=== PATIENT | female | born 1935 | race Caucasian/White ===

== ENCOUNTER 2017-07-12 13:57 | Outpatient (CLI) | payer MEDICARE | END 2017-07-12 13:58 | disposition critical access hospital (66) | LOC: EMS 13:57 | PROVIDERS: ATTEND Surgery | DX: M54.9 Dorsalgia, unspecified (principal); R53.83 Other fatigue | CPT/HCPCS: A0425; A0427 ==

== ENCOUNTER 2017-07-12 14:18 | Emergency (ER) | payer MEDICARE ==
[2017-07-12] MEDS ORDERED: ASPIRIN CHEW 81 MG TABLET PO STA (15:03)
--- NOTE | 2017-07-12 15:04 | ED Physician Documentation ---
PD HPI CHEST PAIN - Stated complaint Stated Complaint: BACK PX - Chief complaint Chief Complaint: Back Pain - History obtained from History obtained from: Patient, EMS - History of Present Illness Timing - onset: Other (This is an 81-year-old woman with history of coronary disease, 3 vessel bypass in 2007. 2 weeks ago she had an episode of chest and back squeezing, she was seen at [facility] and ruled out, a nuclear stress test was done and was negative. This was reviewed using the [employer] System. Today she was at work at around 1120 and developed similar chest and back pressure associated with nausea and diaphoresis. It went away after an hour. She is in no pain now.) Review of Systems Ten Systems: 10 systems reviewed and negative Constitutional: denies: Fever, Chills Cardiac: reports: Chest pain / pressure. denies: Palpitations, Pedal edema, Calf pain Respiratory: reports: Dyspnea. 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: No - Family History Family history: reports: Non contributory PD ED PE NORMAL - Vitals Vital signs reviewed: Yes - General General: Alert and oriented X 3, No acute distress - HEENT HEENT: PERRL, EOMI - Neck Neck: Supple, no meningeal sign, No bony TTP - Cardiac Cardiac: RRR, No murmur - Respiratory Respiratory: No respiratory distress, Clear bilaterally - Abdomen Abdomen: Soft, Non tender - Extremities Extremities: No edema, No calf tenderness / cord - Neuro Neuro: Alert and oriented X 3, Normal speech - Psych Psych: Normal mood, Normal affect Results - Vitals Vitals: Vital Signs - 24 hr 07/12/17 07/12/17 14:17 16:18 Temperature 36.8 C Heart Rate 78 68 Respiratory 18 18 Rate Blood Pressure 134/62 H 155/55 H O2 Saturation 93 95 Oxygen O2 Source Room air - EKG (time done) 1523 Rate: Rate (enter#) (83) Rhythm: NSR May: Normal Intervals: RBBB Ischemia: T wave inversion (V1-V5). No: ST elevation c/w ischemia Compare to prior EKG: Other (I am able to read the impression of the EKG done at [facility] which is remarked as showing sinus rhythm, right bundle branch block, T-wave inversion in V3 through V6.) Computer interpretation: Agree with computer - Labs Labs: Laboratory Tests 07/12/17 07/12/17 07/12/17 15:27 15:27 15:27 WBC 9.6 RBC 5.13 Hgb 14.8 Hct 44.3 MCV 86.4 MCH 28.8 MCHC 33.4 RDW 13.8 Plt Count 215 MPV 8.7 Neut # 7.6 H Lymph # 1.0 L [place] # 0.6 Eos # 0.3 Baso # 0.1 Absolute Nucleated RBC 0.01 Nucleated RBCs 0.2 Sodium 136 Potassium 3.7 Chloride 102 Carbon Dioxide 25 Anion Gap 9.0 BUN 17 Creatinine 1.0 Estimated GFR (MDRD) 53 L Glucose 119 H Calcium 10.3 Total Bilirubin 1.4 H AST 25 ALT 18 Alkaline Phosphatase 58 Troponin I < 0.04 Total Protein 7.2 Albumin 4.4 Globulin 2.8 Albumin/Globulin Ratio 1.6 Lipase 32 07/12/17 17:10 WBC RBC Hgb Hct MCV MCH MCHC RDW Plt Count MPV Neut # Lymph # [place] # Eos # Baso # Absolute Nucleated RBC Nucleated RBCs Sodium Potassium Chloride Carbon Dioxide Anion Gap BUN Creatinine Estimated GFR (MDRD) Glucose Calcium Total Bilirubin AST ALT Alkaline Phosphatase Troponin I < 0.04 Total Protein Albumin Globulin Albumin/Globulin Ratio Lipase PD MEDICAL DECISION MAKING - ED course ED course: 81-year-old woman with history of coronary disease but negative stress test 2 weeks ago presents with chest pain that is recurrent but now gone. Atypical and nonexertional. EKG is unchanged from prior and 2 negative troponins were negative and undetectable in the emergency department. Departure - Departure Disposition: 01 Home, Self Care Clinical Impression: Chest pain Qualifiers: Chest pain type: unspecified Qualified Code(s): R07.9 - Chest pain, unspecified Condition: Good Record reviewed to determine appropriate education?: Yes Instructions: ED Chest Pain NonCardiac Comments: Follow-up with your doctor, next available appointment. Return in the interim if worse. Also recheck your blood pressure when you follow-up, it was elevated in the department which is not uncommon phenomenon.
[2017-07-12] MEDS ORDERED: ASPIRIN CHEW 81 MG TABLET ONE (15:22)
[2017-07-12 15:35] LABS: BASOPHILS # (AUTO) 0.1 10^3/uL (0.0-0.1); BASOPHILS % (AUTO) 1.3 %; EOSINOPHILS # (AUTO) 0.3 10^3/uL (0.0-0.7); EOSINOPHILS % (AUTO) 2.9 %; HCT - HEMATOCRIT 44.3 % (37.0-47.0); HGB - HEMOGLOBIN 14.8 g/dL (12.0-16.0); LYMPHOCYTES % (AUTO) 10.2 %; MEAN CORPUSCULAR HEMOGLOBIN 28.8 pg (27.0-31.0); MEAN CORPUSCULAR HGB CONC 33.4 g/dL (32.0-36.0); MEAN CORPUSCULAR VOLUME 86.4 fL (81.0-99.0); MEAN PLATELET VOLUME 8.7 fL (7.9-10.8); MONOCYTES # (AUTO) 0.6 10^3/uL (0.0-1.0); MONOCYTES % (AUTO) 6.2 %; NEUTROPHILS # (AUTO) 7.6 10^3/uL (1.5-6.6); NEUTROPHILS % (AUTO) 79.4 %; NUCLEATED RED BLOOD CELLS AUTO 0.2 /100WBC; RED BLOOD COUNT 5.13 10^6/uL (4.20-5.40); RED CELL DISTRIBUTION WIDTH 13.8 % (12.0-15.0); UNCORRECTED WHITE BLOOD COUNT 9.6 x10^3/uL; WHITE BLOOD COUNT 9.6 x10^3/uL (4.8-10.8)
--- NOTE | 2017-07-12 15:39 | XRAY Preliminary Report ---
Exam: XR Chest 1 View IMPRESSION: No acute cardiopulmonary abnormality. [facility] SITE ID: [id number]
--- NOTE | 2017-07-12 15:42 | XRAY Report ---
EXAM: CHEST RADIOGRAPHY EXAM DATE: 07/12/2017 03:27 PM. CLINICAL HISTORY: Chest pain. COMPARISON: 12/31/2006. TECHNIQUE: 1 view. FINDINGS: Lungs/Pleura: No focal airspace opacity. Lung volumes within normal limits. Negative for pneumothorax . Mediastinum: There is moderate aortic arch atherosclerotic calcification. Heart size is normal. Previ ous sternotomy noted. Other: None. IMPRESSION: No acute cardiopulmonary abnormality. [facility] Referring Provider Line: [phone] SITE ID: [id number]
[2017-07-12 15:46] LABS: ALBUMIN/GLOBULIN RATIO 1.6 (1.0-2.2); BILIRUBIN,TOTAL 1.4 mg/dL (0.2-1.0); CALCIUM 10.3 mg/dL (8.5-10.3); POTASSIUM 3.7 mmol/L (3.5-5.0); TOTAL PROTEIN 7.2 g/dL (6.7-8.2)
[2017-07-12 17:56] VITALS: BP 110/54
== END 2017-07-12 18:04 | disposition home or self-care (01) ==
LOC: ED 14:18
DX: R07.9 Chest pain, unspecified (principal); I45.10 Unspecified right bundle-branch block; I25.10 Atherosclerotic heart disease of native coronary artery without angina pectoris; Z95.1 Presence of aortocoronary bypass graft; Z79.82 Long term (current) use of aspirin
CPT/HCPCS: 36415; 71010; 80053; 83690; 84484; 85025; 93005; 99283; 99284; A9270

== ENCOUNTER 2017-09-11 11:53 | Outpatient (CLI) | payer MEDICARE | END 2017-09-11 11:54 | disposition critical access hospital (66) | LOC: EMS 11:53 | PROVIDERS: ATTEND Surgery | DX: R42 Dizziness and giddiness (principal) | CPT/HCPCS: A0425; A0429 ==

== ENCOUNTER 2017-09-11 12:12 | Inpatient (IN) | payer MEDICARE ==
--- NOTE | 2017-09-11 12:38 | ED Physician Documentation ---
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 denies: Fever, Chills Nose: reports: Sinus pressure / pain Cardiac: reports: Chest pain / pressure Respiratory: reports: Dyspnea, Cough GI: reports: Abdominal Pain, Diarrhea. denies: Nausea, Vomiting, Bloody / black stool : denies: Dysuria Neurologic: reports: Generalized weakness. 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 Cardiovascular: CABG HEENT: Tonsil/Adenoidectomy - Present Medications Home Medications: Ambulatory Orders Medication Instructions Recorded Confirmed Aspirin 162 mg PO DAILY 07/12/17 09/11/17 Levothyroxine Sodium [Synthroid] 50 mcg PO DAILY 07/12/17 09/11/17 Lisinopril 40 mg PO DAILY 07/12/17 09/11/17 Albuterol 2.5 mg INH BID PRN 09/11/17 09/11/17 Amlodipine Besylate [Amlodipine 10 mg PO DAILY 09/11/17 09/11/17 Besylate] [place]-3 Acid Ethyl Esters [Lovaza] 1 gm PO DAILY 09/11/17 09/11/17 Triamterene/Hydrochlorothiazid 1 tab PO DAILY 09/11/17 09/11/17 [Triamterene-Hctz 37.5-25 mg Tb] - Allergies Allergies/Adverse Reactions: Allergies Allergy/AdvReac Type Severity Reaction Status Date / Time unknown antibiotic Allergy Unknown Uncoded 07/12/17 14:22 - Social History Does the pt smoke?: No Smoking Status: Never smoker Does the pt drink ETOH?: No Does the pt have substance abuse?: No - Immunizations Immunizations are current?: No - POLST Patient has POLST: No PD ED PE NORMAL - Vitals Vital signs reviewed: Yes - General General: Alert and oriented X 3 - HEENT HEENT: PERRL - Neck Neck: Supple, no meningeal sign - Cardiac Cardiac: RRR - Respiratory Respiratory: No respiratory distress, Clear bilaterally - Abdomen Abdomen: Soft, Non tender - Derm Derm: Normal color - Extremities Extremities: No deformity, Normal ROM s pain, No edema, No calf tenderness / cord - Neuro Neuro: Alert and oriented X 3, toilet products molder 2-12 intact, No motor deficit, No sensory deficit, Normal speech Results - Vitals Vitals: Vital Signs - 24 hr 09/11/17 09/11/17 09/11/17 12:17 13:51 14:27 Temperature 36.7 C Heart Rate 78 82 61 Respiratory 21 21 15 Rate Blood Pressure 194/80 H 164/74 H O2 Saturation 97 97 97 09/11/17 15:22 Temperature 36.8 C Heart Rate 77 Respiratory 15 Rate Blood Pressure 168/77 H O2 Saturation 95 Oxygen O2 Source Room air - EKG (time done) 1218 Rhythm: NSR, Other (freq PVCs) [place]: Normal Intervals: Normal [place], RBBB Ischemia: Other (ST elev III with J pt notiching, not in II or AVF) - Labs Labs: Laboratory Tests 09/11/17 09/11/17 09/11/17 12:57 12:57 12:57 WBC 9.9 RBC 4.70 Hgb 13.5 Hct 40.5 MCV 86.1 MCH 28.8 MCHC 33.4 RDW 13.4 Plt Count 262 MPV 8.5 Neut # 7.3 H Lymph # 1.4 L [place] # 0.7 Eos # 0.4 Baso # 0.1 Absolute Nucleated RBC 0.00 Nucleated RBC % 0.0 Sodium 138 Potassium 3.5 Chloride 104 Carbon Dioxide 25 Anion Gap 9.0 BUN 21 H Creatinine 1.0 Estimated GFR (MDRD) 53 L Glucose 118 H Lactic Acid Calcium 9.6 Total Bilirubin 0.5 AST 20 ALT 16 Alkaline Phosphatase 47 Troponin I < 0.04 Total Protein 6.3 L Albumin 3.3 Globulin 3.0 Albumin/Globulin Ratio 1.1 Lipase 30 09/11/17 12:57 WBC RBC Hgb Hct MCV MCH MCHC RDW Plt Count MPV Neut # Lymph # [place] # Eos # Baso # Absolute Nucleated RBC Nucleated RBC % Sodium Potassium Chloride Carbon Dioxide Anion Gap BUN Creatinine Estimated GFR (MDRD) Glucose Lactic Acid 1.4 Calcium Total Bilirubin AST ALT Alkaline Phosphatase Troponin I Total Protein Albumin Globulin Albumin/Globulin Ratio Lipase - Rads (name of study) CXR Radiology: See rad report (interstitial prominence may rep bronchtiis or atypical pna) abd sono Radiology: See rad report (5 cm AAA no FF) PD MEDICAL DECISION MAKING - ED course ED course: elderly pt with poorly controlled HTN and known AAA that is not ruptured and recently txed pna to ER with near syncope and severe weakness associated with chest discomfort onset shortly 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
[2017-09-11 12:59] LABS: BASOPHILS # (AUTO) 0.1 10^3/uL (0.0-0.1); BASOPHILS % (AUTO) 0.5 %; EOSINOPHILS # (AUTO) 0.4 10^3/uL (0.0-0.7); HCT - HEMATOCRIT 40.5 % (37.0-47.0); HGB - HEMOGLOBIN 13.5 g/dL (12.0-16.0); LYMPHOCYTES # (AUTO) 1.4 10^3/uL (1.5-3.5); LYMPHOCYTES % (AUTO) 14.3 %; MEAN CORPUSCULAR HEMOGLOBIN 28.8 pg (27.0-31.0); MEAN CORPUSCULAR HGB CONC 33.4 g/dL (32.0-36.0); MEAN CORPUSCULAR VOLUME 86.1 fL (81.0-99.0); MEAN PLATELET VOLUME 8.5 fL (7.9-10.8); MONOCYTES # (AUTO) 0.7 10^3/uL (0.0-1.0); MONOCYTES % (AUTO) 6.8 %; NEUTROPHILS # (AUTO) 7.3 10^3/uL (1.5-6.6); NEUTROPHILS % (AUTO) 74.4 %; RED CELL DISTRIBUTION WIDTH 13.4 % (12.0-15.0); UNCORRECTED WHITE BLOOD COUNT 9.9 x10^3/uL; WHITE BLOOD COUNT 9.9 x10^3/uL (4.8-10.8)
[2017-09-11 13:12] LABS: ALBUMIN/GLOBULIN RATIO 1.1 (1.0-2.2); BILIRUBIN,TOTAL 0.5 mg/dL (0.2-1.0); CALCIUM 9.6 mg/dL (8.5-10.3); POTASSIUM 3.5 mmol/L (3.5-5.0); TOTAL PROTEIN 6.3 g/dL (6.7-8.2)
--- NOTE | 2017-09-11 14:09 | XRAY Preliminary Report ---
Exam: XR CHEST 2 VIEW PA/LAT IMPRESSION: Increased interstitial prominence may represent bronchitis or an interstitial pneumonitis , most likely viral or mycoplasmal. Cardiovascular fullness may also contribute to this appearance. [facility] SITE ID: [id number]
--- NOTE | 2017-09-11 14:11 | XRAY Report ---
EXAM: CHEST RADIOGRAPHY EXAM DATE: 09/11/2017 01:46 PM. CLINICAL HISTORY: Weak soa cough recent tx for pna. COMPARISON: 07/12/2017. TECHNIQUE: 2 views. FINDINGS: Lungs/Pleura: Diffusely increased interstitial prominence, especially in the bases. No consolidation, effusion, or pneumothorax.. Mediastinum: Mild to moderate cardiomegaly, increased slightly. Mild vascular fullness. Other: Status post median sternotomy. IMPRESSION: Increased interstitial prominence may represent bronchitis or an interstitial pneumonitis , most likely viral or mycoplasmal. Cardiovascular fullness may also contribute to this appearance. [facility] Referring Provider Line: [phone] SITE ID: [id number]
--- NOTE | 2017-09-11 18:54 | Ultrasound Report ---
LIMITED RETROPERITONEAL ULTRASOUND: 09/11/2017 CLINICAL INDICATION: Known aneurysm, weakness. TECHNIQUE: Real-time scanning was performed with retail customer service representative static images obtained. The abdominal aorta measures 2.4 cm proximally, and 2.2 cm in the mid portion. There is a distal abd ominal aortic aneurysm present, measuring 5.0 x 4.5 cm. The iliacs are normal in caliber. No free f luid is present. IMPRESSION: A 5.0 CM DISTAL ABDOMINAL AORTIC ANEURYSM, WITHOUT EVIDENCE OF LEAK. JOB #: [id number] EXT JOB #:[id number]
[2017-09-11] MEDS ORDERED: SODIUM CHLORIDE FLUSH 0.9% 10 ML SYRINGE IVP PRN (22:02)
[2017-09-11] MEDS ORDERED: ZOLPIDEM 5 MG TABLET PO PRN (22:02)
[2017-09-11] MEDS ORDERED: PROMETHAZINE 25 MG/1 ML VIAL IM PRN (22:02)
[2017-09-11] MEDS ORDERED: ACETAMINOPHEN 325 MG TABLET PO PRN (22:02)
[2017-09-11] MEDS ORDERED: PROCHLORPERAZINE 10 MG/2 ML VIAL IVP PRN (22:02)
[2017-09-11] MEDS ORDERED: NITROGLYCERIN SL 0.4 MG TABLET SL PRN (22:02)
[2017-09-11] MEDS ORDERED: oxyCODONE 5 MG TABLET PO PRN (22:02)
[2017-09-11] MEDS ORDERED: ONDANSETRON 4 MG/2 ML VIAL IVP PRN (22:02)
[2017-09-12] MEDS: AZITHROMYCIN INJ 500 MG in SODIUM CHLORIDE 0.9% 250 ML IV SCH ×2 (00:07→22:43)
[2017-09-12] MEDS: SODIUM CHLORIDE FLUSH 0.9% 10 ML SYRINGE IVP SCH ×3 (00:07→20:43)
[2017-09-12 02:30] LABS: BILIRUBIN,URINE NEGATIVE (NEGATIVE)
[2017-09-12 02:40] LABS: UA CHARGE (STRIP ONLY) YES; UR CULTURE IF IND NOT INDICATED
[2017-09-12 03:34] LABS: ALBUMIN/GLOBULIN RATIO 1.1 (1.0-2.2); BILIRUBIN,TOTAL 0.6 mg/dL (0.2-1.0); BUN - BLOOD UREA NITROGEN 21 mg/dL (6-20); CALCIUM 9.4 mg/dL (8.5-10.3); CARBON DIOXIDE - CO2 24 mmol/L (21-32); CHLORIDE 103 mmol/L (101-111); CHOL/HDL RATIO 4.5 (<4.4); CHOLESTEROL 152 mg/dL; GFR - MDRD 53 (>89); GLUCOSE 107 mg/dL (70-100); HDL CHOLESTEROL 34 mg/dL; LDL/HDL RATIO 1.9 (<4.4); POTASSIUM 3.9 mmol/L (3.5-5.0); SODIUM 138 mmol/L (135-145); TOTAL PROTEIN 5.8 g/dL (6.7-8.2); TRIGLYCERIDES 260 mg/dL; VLDL CHOLESTEROL 52 mg/dL
[2017-09-12] MEDS: LISINOPRIL 20 MG TABLET PO SCH (09:22)
[2017-09-12] MEDS: amLODIPine 5 MG TABLET PO SCH (09:22)
[2017-09-12] MEDS: LEVOTHYROXINE 25 MCG TABLET PO SCH (09:22)
[2017-09-12] MEDS: TRIAMT/HCTZ 37.5 MG/25 MG CAPSULE PO SCH (09:23)
[2017-09-12] MEDS: ASPIRIN EC 81 MG TABLET PO SCH (09:23)
[2017-09-12] MEDS: FAMOTIDINE 20 MG TABLET PO SCH ×2 (09:23→20:41)
[2017-09-12] MEDS: ENOXAPARIN 40 MG/0.4 ML SYRINGE SUBQ SCH (09:23)
[2017-09-12] MEDS: POLYETHYLENE GLYCOL 3350 17 GM PACKET PO SCH (09:24)
[2017-09-12] MEDS: IPRATROPIUM/ALBUTEROL 3 ML NEB INH PRN ×2 (10:15→14:30)
[2017-09-12] MEDS ORDERED: NITROGLYCERIN 0.4 MG/HR PATCH TOP SCH (11:00)
[2017-09-12] MEDS ORDERED: guaiFENesin 600 MG TABLET PO SCH (11:00)
[2017-09-12] MEDS: guaiFENesin/DEXTROMETHORPHAN 10 ML UDC PO SCH ×2 (13:20→17:36)
--- NOTE | 2017-09-12 18:14 | PROVIDER PROGRESS NOTE ---
Assessment/Plan - Problem List (1) Atypical chest pain Assessment/Plan: Nitropatch was ordered, pt wore it for 5 hours and had no difference in chest pressure. The only thing that improved her chest pressure was the inhaler. I suspect this is pulmonary pain, even thogh it is not pleuritic Will admit Pt to full inpatient status for pain control. Pt agreeable. (2) Atypical pneumonia Assessment/Plan: Pt on iv antibiotic using Zithromax to treat probable bilateral Mycoplasma pneumonia. Since Pt now coughing, will obtain sputum sample for c&s. (3) COPD exacerbation Assessment/Plan: Improved symptoms but only minimally with Duonebs. Will continue this. Will also begin a Medrol dose salma. Pt says she needs steroids along with antibiotics when she has pulmonary infections. - Current Meds Current Meds: Current Medications Generic Name Dose Route Start Last Admin Trade Name Freq PRN Reason Stop Dose Admin Albuterol/Ipratropium 3 ml 09/11/17 22:02 09/12/17 14:30 Duoneb INH 3 ml Q4HR PRN Administration Wheezing Amlodipine Besylate 10 mg 09/12/17 09:00 09/12/17 09:22 Norvasc PO 10 mg DAILY ARNULFO Administration Aspirin 81 mg 09/12/17 09:00 09/12/17 09:23 Ecotrin PO 81 mg DAILY ARNULFO Administration Enoxaparin Sodium 40 mg 09/12/17 09:00 09/12/17 09:23 Lovenox SUBQ 40 mg DAILY ARNULFO Administration Famotidine 20 mg 09/12/17 09:00 09/12/17 09:23 Pepcid PO 20 mg BID ARNULFO Administration Guaifenesin 10 ml 09/12/17 12:00 09/12/17 17:36 Robitussin Dm PO 10 ml Q6HR ARNULFO Administration Azithromycin 500 mg/ Sodium 250 mls @ 250 mls/hr 09/11/17 23:00 09/12/17 01: 25 Chloride IV Infused Q24H ARNULFO Infusion Levothyroxine Sodium 50 mcg 09/12/17 09:00 09/12/17 09:22 Synthroid PO 50 mcg DAILY ARNULFO Administration Lisinopril 40 mg 09/12/17 09:00 09/12/17 09:22 Zestril PO 40 mg DAILY ARNULFO Administration Oxycodone HCl 5 mg 09/11/17 22:02 09/12/17 16:10 Roxicodone PO 5 mg Q4HR PRN Administration Pain 5 to 7 Polyethylene Glycol 17 gm 09/12/17 09:00 09/12/17 09:24 Miralax PO Not Given DAILY ARNULFO Sodium Chloride 10 ml 09/12/17 06:00 09/12/17 13:20 Normal Saline Flush 0.9% IVP 10 ml Q8HR ARNULFO Administration Triamterene/HCTZ 1 cap 09/12/17 09:00 09/12/17 09:23 Dyazide PO 1 cap DAILY ARNULFO Administration - Lab Result Fish Bone Diagrams: 09/11/17 12:57 09/12/17 02:58 - Additional Planning My Orders: My Active Orders 09/12/17 CUL, RESPIRATORY [RM] Urgent 09/12/17 12:00 guaiFENesin/DEXTROMETHORPHAN [Robitussin Dm] 10 ml PO Q6HR 09/12/17 Dinner Regular Diet [DIET] Subjective - Subjective Patient Reports: Other (Still has chest pressure, nearly constant. Has a new wet cough) Nursing Reports: Other (RT said that Pt only had relief of chest pressure after inhaler for a while, then it returned) Objective Vital Signs: Vital Signs - 24 hr 09/11/17 09/11/17 09/12/17 20:57 23:49 02:15 Temperature 36.4 C L 36.7 C Heart Rate Heart Rate [ 78 71 Brachial] Respiratory 18 18 18 Rate Blood Pressure 161/49 H 165/56 H [Right Brachial artery] O2 Saturation 94 95 09/12/17 09/12/17 09/12/17 06:00 09:20 10:15 Temperature 36.3 C L 36.2 C L Heart Rate 74 Heart Rate [ 68 75 Brachial] Respiratory 18 18 18 Rate Blood Pressure 147/55 H 163/50 H [Right Brachial artery] O2 Saturation 95 94 09/12/17 09/12/17 09/12/17 10:54 13:11 13:20 Temperature 36.8 C Heart Rate 89 Heart Rate [ 74 82 Brachial] Respiratory 18 Rate Blood Pressure 152/52 H [Right Brachial artery] O2 Saturation 92 09/12/17 09/12/17 14:30 15:59 Temperature 36.7 C Heart Rate 70 Heart Rate [ 93 Brachial] Respiratory 18 20 Rate Blood Pressure 126/58 L [Right Brachial artery] O2 Saturation 94 Oxygen O2 Source Room air I&O (Last 24 Hrs): Intake and Output Totals x24h 09/10/17 09/11/17 09/12/17 23:59 23:59 23:59 Intake Total 360 930 Output Total 450 Balance 360 480 General: Alert, Oriented x3 HEENT: Mucous membr. moist/pink Neck: No JVD Neuro: Alert Cardiovascular: Regular rate, No murmurs Respiratory: Other (Poor air movement, no wheezing or rales or rhonchi) Extremities: No edema - Results Results: Laboratory Results WBC 9.9 x10^3/uL (4.8-10.8) 09/11/17 12:57 RBC 4.70 10^6/uL (4.20-5.40) 09/11/17 12:57 Hgb 13.5 g/dL (12.0-16.0) 09/11/17 12:57 Hct 40.5 % (37.0-47.0) 09/11/17 12:57 MCV 86.1 fL (81.0-99.0) 09/11/17 12:57 MCH 28.8 pg (27.0-31.0) 09/11/17 12:57 MCHC 33.4 g/dL (32.0-36.0) 09/11/17 12:57 RDW 13.4 % (12.0-15.0) 09/11/17 12:57 Plt Count 262 10^3/uL (130-450) 09/11/17 12:57 MPV 8.5 fL (7.9-10.8) 09/11/17 12:57 Neut # 7.3 10^3/uL (1.5-6.6) H 09/11/17 12:57 Lymph # 1.4 10^3/uL (1.5-3.5) L 09/11/17 12:57 [place] # 0.7 10^3/uL (0.0-1.0) 09/11/17 12:57 Eos # 0.4 10^3/uL (0.0-0.7) 09/11/17 12:57 Baso # 0.1 10^3/uL (0.0-0.1) 09/11/17 12:57 Absolute Nucleated RBC 0.00 x10^3/uL 09/11/17 12:57 Nucleated RBC % 0.0 /100WBC 09/11/17 12:57 Sodium 138 mmol/L (135-145) 09/12/17 02:58 Potassium 3.9 mmol/L (3.5-5.0) 09/12/17 02:58 Chloride 103 mmol/L (101-111) 09/12/17 02:58 Carbon Dioxide 24 mmol/L (21-32) 09/12/17 02:58 Anion Gap 11.0 (6-13) 09/12/17 02:58 BUN 21 mg/dL (6-20) H 09/12/17 02:58 Creatinine 1.0 mg/dL (0.4-1.0) 09/12/17 02:58 Estimated GFR (MDRD) 53 (>89) L 09/12/17 02:58 Glucose 107 mg/dL (70-100) H 09/12/17 02:58 Lactic Acid 1.4 mmol/L (0.5-2.2) 09/11/17 12:57 Calcium 9.4 mg/dL (8.5-10.3) 09/12/17 02:58 Total Bilirubin 0.6 mg/dL (0.2-1.0) 09/12/17 02:58 AST 18 IU/L (10-42) 09/12/17 02:58 ALT 15 IU/L (10-60) 09/12/17 02:58 Alkaline Phosphatase 49 IU/L (42-121) 09/12/17 02:58 Troponin I < 0.04 ng/mL (<0.49) 09/12/17 09:10 B-Natriuretic Peptide 232 pg/mL (5-100) H 09/12/17 02:58 Total Protein 5.8 g/dL (6.7-8.2) L 09/12/17 02:58 Albumin 3.1 g/dL (3.2-5.5) L 09/12/17 02:58 Globulin 2.7 g/dL (2.1-4.2) 09/12/17 02:58 Albumin/Globulin Ratio 1.1 (1.0-2.2) 09/12/17 02:58 Triglycerides 260 mg/dL (-149) H 09/12/17 02:58 Cholesterol 152 mg/dL (-199) 09/12/17 02:58 LDL Cholesterol, Calc 66 mg/dL (-129) 09/12/17 02:58 VLDL Cholesterol 52 mg/dL 09/12/17 02:58 HDL Cholesterol 34 mg/dL (60-) L 09/12/17 02:58 LDL/HDL Ratio 1.9 (<4.4) 09/12/17 02:58 Cholesterol/HDL Ratio 4.5 (<4.4) 09/12/17 02:58 Lipase 30 U/L (22-51) 09/11/17 12:57 Urine Color YELLOW 09/12/17 00:10 Urine Clarity CLEAR (CLEAR) 09/12/17 00:10 Urine pH 7.0 PH (5.0-7.5) 09/12/17 00:10 Ur Specific [place] 1.015 (1.002-1.030) 09/12/17 00:10 Urine Protein NEGATIVE mg/dL (NEGATIVE) 09/12/17 00:10 Urine Glucose (UA) NEGATIVE mg/dL (NEGATIVE) 09/12/17 00:10 Urine Ketones NEGATIVE mg/dL (NEGATIVE) 09/12/17 00:10 Urine Occult Blood NEGATIVE (NEGATIVE) 09/12/17 00:10 Urine Nitrite NEGATIVE (NEGATIVE) 09/12/17 00:10 Urine Bilirubin NEGATIVE (NEGATIVE) 09/12/17 00:10 Urine Urobilinogen 0.2 (NORMAL) E.U./dL (NORMAL) 09/12/17 00:10 Ur Leukocyte Esterase NEGATIVE (NEGATIVE) 09/12/17 00:10 Ur Microscopic Review NOT INDICATED 09/12/17 00:10 Urine Culture Comments NOT INDICATED 09/12/17 00:10
[2017-09-12] MEDS: methylPREDNISolone 4 MG TABLET PO SCH ×2 (20:43→22:37)
[2017-09-13] MEDS: guaiFENesin/DEXTROMETHORPHAN 10 ML UDC PO SCH ×2 (02:39→05:00)
[2017-09-13] MEDS: SODIUM CHLORIDE FLUSH 0.9% 10 ML SYRINGE IVP SCH (05:00)
[2017-09-13 06:15] LABS: ALBUMIN/GLOBULIN RATIO 1.2 (1.0-2.2); BILIRUBIN,TOTAL 0.6 mg/dL (0.2-1.0); CALCIUM 9.8 mg/dL (8.5-10.3); POTASSIUM 4.5 mmol/L (3.5-5.0); TOTAL PROTEIN 6.7 g/dL (6.7-8.2)
[2017-09-13] MEDS: amLODIPine 5 MG TABLET PO SCH (08:21)
[2017-09-13] MEDS: LEVOTHYROXINE 25 MCG TABLET PO SCH (08:21)
[2017-09-13] MEDS: POLYETHYLENE GLYCOL 3350 17 GM PACKET PO SCH (08:21)
[2017-09-13] MEDS: methylPREDNISolone 4 MG TABLET PO SCH (08:21)
[2017-09-13] MEDS: TRIAMT/HCTZ 37.5 MG/25 MG CAPSULE PO SCH (08:21)
[2017-09-13] MEDS: ASPIRIN EC 81 MG TABLET PO SCH (08:21)
[2017-09-13] MEDS: FAMOTIDINE 20 MG TABLET PO SCH (08:22)
[2017-09-13] MEDS: LISINOPRIL 20 MG TABLET PO SCH (08:22)
[2017-09-13] MEDS: ENOXAPARIN 40 MG/0.4 ML SYRINGE SUBQ SCH (08:22)
[2017-09-13] MEDS: IPRATROPIUM/ALBUTEROL 3 ML NEB INH PRN (08:40)
[2017-09-13 09:20] VITALS: BP 135/50
--- NOTE | 2017-09-13 11:33 | Discharge Plan ---
Discharge Plan Disposition: Home, Self Care Condition: Good Prescriptions: Azithromycin [Zithromax] 1 gm PO UD #1 packet Methylprednisolone [Medrol] 4 mg PO UD #1 tab.ds.pk Diet: Regular Activity Restrictions: no lifting greater than 5 pounds Shower Restrictions: No Driving Restrictions: No Additional Instructions or Follow Up instructions: You were initially placed under observation because of nearly fainting, nausea, and chest discomfort. We initially thought you were having a cardiac event but we found out that you have a previous history of a normal stress test recently, and that you have an abdominal aortic aneurysm for which you will see the vascular surgeon on September 17 for an opinion about when to repair. Our evaluation of your heart showed it to be normally functioning with negative blood tests for heart attack. Telemetry here showed an acceptable heart rhythm. Your discomfort seems to be the same at rest or with exertion. And as we carefully questioned you we realized that your problem is most likely lung symptoms. Your chest x-ray shows diffuse scarring but no pneumonia. You seem to improve with steroids and azithromycin. As such, you will be sent home with a full treatment of azithromycin. And a tapering steroid dose. You already take long-acting bronchodilators with Advair and Spiriva. And you have short acting bronchodilators as well that you take on as needed basis. Please keep taking those. Please see your primary care provider in the next week or 2. And please keep your appointment with the vascular surgeon regarding your aneurysm. No Smoking: If you smoke, Please STOP! Call for help. Follow-up with: Azul Melgar MD [Primary Care Provider] -
--- NOTE | 2017-09-13 15:08 | DISCHARGE SUMMARY ---
DATE OF ADMISSION: 09/12/2017 DATE OF DISCHARGE: 09/13/2017 DISCHARGE DIAGNOSES 1. Acute chronic obstructive pulmonary disease exacerbation. 2. Atypical chest pain from #1. 3. History of atherosclerotic heart disease of [place] coronary artery. 4. Abdominal aortic aneurysm. DISCHARGE MEDICATIONS New prescriptions: 1. Azithromycin pack. 2. Medrol Dosepak. Old prescriptions: 1. Albuterol metered dose inhaler q.i.d. p.r.n. 2. Amlodipine 10 mg p.o. daily. 3. Aspirin 162 mg daily. 4. Synthroid 50 mcg daily. 5. Lisinopril 40 mg daily. 6. [place] 3 fish oil 1 gram daily. 7. Triamterene/hydrochlorothiazide 1 tablet daily. 8. Advair Diskus inhaler 1 puff b.i.d. 9. Spiriva Respimat inhaler 1 capsule daily. PRINCIPAL PROCEDURES 1. Chest x-ray showing increasing interstitial and prominence compatible with either interstitial charito g disease or mild fluid overload. 2. Abdominal aortic ultrasound showing 5 cm distal abdominal aortic aneurysm. 3. EKG with sinus rhythm, periventricular PVCs, right bundle branch block and left ventricular hypert rophy with intraventricular conduction delay. 4. Troponins x2 less than 0.04. HISTORY OF PRESENT ILLNESS: The patient is a desean 81-year-old female who works at [employer] 4 hours a day, 3 days a week. She already has been evaluated for 3 weeks of discomfort and presyncope a week ago. She was found to have an abdominal aortic aneurysm a week ago, and a stress test was negative fo r ischemia. She is due to see the vascular surgeon next Sunday for evaluation to see if she is a cand idate for repair or not. At work today, she just started having diffuse weakness, vague fullness and discomfort to her central chest and abdomen. No fever, no phlegm. Cough is stable and mild, for which she takes her inhalers. Blood pressure was elevated, but she had forgotten to take her blood pressure pills. She was evaluated in the emergency room by Dr. Aura Serrato. Exam was negative and lungs were clear. She was afebrile, hypertensive at 194/80. HOSPITAL COURSE: She was initially evaluated as possible anginal equivalent. She had a nitroglycerin patch placed, and after 4-8 hours had no change in her chest discomfort. She said her chest discomfor t was present at rest, as well as with exertion. It made no difference. When she received an albutero l nebulizer treatment, her chest pressure improved to almost nonexistent. As such, the diagnosis was changed from chest pressure from angina in a patient who has known coronary artery disease to chest p ressure from most likely COPD. Chest x-ray was critically abnormal with signs of increasing interstit ial prominence with a BNP that was only in the 200s. She seemed to improve with Zithromax and steroid s empirically. As such, she was discharged in stable condition. She is to follow up with the vascular surgeon for an endovascular stent evaluation. She is discharged with a Medrol Dosepak, and to comple te a Dosepak of Zithromax as well. On the day of discharge, she says that she still has occasional chest discomfort that seems to be mor e of a tightness and again it is relieved by bronchodilator treatment. She already takes a long-actin g bronchodilator as well as a short-acting bronchodilator and Spiriva at home. She also has prednison e tablets at home. PHYSICAL EXAMINATION VITAL SIGNS: On discharge, she is 36.5, pulse 85, blood pressure 135/50, respirations 18 and unlabore d, and 94% on room air. GENERAL: She is an exceedingly pleasant, elderly female who looks her stated age with dyed red hair. NECK: Supple. LUNGS: No increased respiratory effort. Lungs are completely clear with no prolonged exhalation. She is comfortable with eating breakfast, speaking to me and completing full sentences. HEART: She has a regular rate and rhythm with a systolic ejection murmur. ABDOMEN: Soft, normal bowel sounds. She does have a murmur in her mid abdomen as well. Bilateral femo ral bruits. No rebound, no tenderness, no flank pain. Normal bowel sounds. EXTREMITIES: Warm. She is able to sit up in bed, transfer from a sitting to standing position without assist. I have asked her to please follow through with seeing her primary care provider, Dr. Azul Melgar, and seeing her vascular surgeon in the next week. She is to see Azul Melgar for followup in the next 1-2 weeks and keep her appointment on 09/17/2017 with the vascular surgeon. To make sure she takes her b lood pressure medicine on a regular basis, I fabio a diagram for her what an aneurysm was and why it i s important to keep her blood pressure low until she has her surgery. I explained what a blowout phen omena was and what the symptoms were. Greater than 30 minutes was spent in coordinating discharge. JOB #: [id number] EXT JOB #:[id number]
--- NOTE | 2017-09-14 14:30 | HISTORY & PHYSICAL EXAMINATION ---
DATE OF ADMISSION: 09/12/2017 HISTORY OF PRESENT ILLNESS: This is an 81-year-old white female with a history of chronic obstructive pulmonary disease and asthma, coronary disease with bypass surgery approximately 8-10 years ago, prior COPD exacerbations during which she needed steroids and antibiotics. She rarely uses an inhaler. The patient presented with a 3-week history of chest pressure, which is accelerating, mild dyspnea on exertion, a dry cough. Approximately a month ago, the patient states she went to her PCP with these complaints and she was put through testing for the chest pain, which was at that time spreading to the abdomen. She reports to me that she had imaging that showed an abdominal aortic aneurysm and that she had a stress test. The stress test results are not available, but she describes that it was normal. The patient presents to our emergency room with worsening of the chest pressure with a "hollow feeling in the abdomen" like a pain. She is mildly short of breath with activity and has a dry cough. She was nearly syncopal while standing today working at [email or web address] and developed some chest pressure and then dizziness and weakness and had near syncope. A coworker sat her down and then advised that she come to the emergency room. She has been placed in observation for a rule out CA protocol. PAST MEDICAL HISTORY: CAD with remote bypass surgery, peripheral vascular disease with abdominal aortic aneurysm (per her report), COPD/asthma. SOCIAL HISTORY: The patient is a nonsmoker, quit 20 years ago or more. She drinks no alcohol, no illicit drug use. She lives alone and is independent. FAMILY HISTORY: There are no inherited diseases. MEDICATIONS AT HOME 1. Baby aspirin 2 daily. 2. Levothyroxine. 3. Lisinopril 40 mg daily. 4. Albuterol inhaler p.r.n. 5. Amlodipine 10 mg p.o. daily. 6. Lovaza 1 gram p.o. daily. 7. Triamterene/hydrochlorothiazide 5/325 p.o. daily. ALLERGIES: NONE. PHYSICAL EXAMINATION GENERAL: Exam reveals a white female in no distress sitting in bed. VITAL SIGNS: Blood pressure 194/80, which improved to 168/77, her pulse is 70- 80 in sinus rhythm. She is afebrile, respiratory rate 20, oxygen saturation 97% on room air. HEENT: Unremarkable with moist oral mucosa and good dental hygiene. NECK: No JVD in a sitting upright position. No carotid bruits. No thyromegaly or lymphadenopathy. CHEST: She has diffuse scattered wheezes and prolonged expiratory phase. No rales or rhonchi. HEART: Sounds are normal, no audible murmurs. There is no heave. ABDOMEN: Soft. Positive bowel sounds. No organomegaly. EXTREMITIES: No clubbing, cyanosis, or edema. NEUROLOGIC: Grossly normal. LABORATORY: Sodium 138, potassium 3.5, BUN 21, creatinine 1.0. Normal liver tests. Undetectable troponin at less than 0.04. Lipase normal. White blood count and CBC normal. No INR was done. Urine essentially normal. BNP 232. IMAGING: Chest x-ray showed diffuse interstitial changes consistent with viral pneumonia or mycoplasma pneumonia. EKG: Normal sinus rhythm, PVCs, right bundle branch block, no acute changes. IMPRESSION/DIAGNOSES 1. Atypical chest pain for angina, but rule out myocardial infarction. 2. Chronic obstructive pulmonary disease exacerbation with wheezing. 3. Abnormal chest x-ray suggestive of atypical pneumonia. 4. History of coronary artery disease with bypass surgery. 5. Hypertension, poorly controlled. 6. History of hypothyroidism per medication list. PLAN: Put the patient on telemetry. Cycle troponins to rule out CA and follow her EKG. Obtain the stress test from [facility] done approximately a month ago and if this is normal, then no repeat stress test needs to be done here. Consider a therapeutic trial of topical nitrates. Obtain orthostatic vital signs. Begin the patient on treatment for her atypical pneumonia and COPD exacerbation using IV antibiotics, DuoNeb inhalers, steroids. If the patient has no improvement in her pulmonary status, she may need to be transferred to an inpatient status for more aggressive pulmonary management, depending on the above cardiac workup as well. Continue with her blood pressure and thyroid medications. CODE STATUS: Full Code. DVT prophylaxis: Lovenox. JOB #: [id number] EXT JOB #:[id number] [facility]ss[facility]
== END 2017-09-13 12:52 | disposition home or self-care (01) | DRG 190 ==
LOC: ED 12:12 → OBS 17:06 → OBSVTOIN 09-12 14:32 → MS2 09-12 17:40
PROVIDERS: ADMIT Internal Medicine; ATTEND Specialist
DX: R07.89 Other chest pain (principal); J44.1 Chronic obstructive pulmonary disease with (acute) exacerbation; R91.8 Other nonspecific abnormal finding of lung field; J15.7 Pneumonia due to Mycoplasma pneumoniae; I10 Essential (primary) hypertension; R55 Syncope and collapse; J44.0 Chronic obstructive pulmonary disease with (acute) lower respiratory infection; I73.9 Peripheral vascular disease, unspecified; E03.9 Hypothyroidism, unspecified; Z95.1 Presence of aortocoronary bypass graft; I25.10 Atherosclerotic heart disease of native coronary artery without angina pectoris; Z87.01 Personal history of pneumonia (recurrent); Z87.891 Personal history of nicotine dependence; I71.4 Abdominal aortic aneurysm, without rupture; Z79.82 Long term (current) use of aspirin
CPT/HCPCS: 36415; 71020; 76775; 80053; 80061; 81001; 81003; 83605; 83690; 83880; 84484; 85025; 87040; 87086; 93005; 94640; 94761; 96365; 96372; 99284

== ENCOUNTER 2017-10-18 06:50 | Outpatient (CLI) | payer MEDICARE | END 2017-10-18 06:51 | disposition EMS.NT | LOC: EMS 06:50 | PROVIDERS: ATTEND Surgery | DX: R04.0 Epistaxis (principal) ==

== ENCOUNTER 2018-06-21 11:25 | Outpatient (CLI) | payer MEDICARE | END 2018-06-21 11:26 | disposition short-term general hospital (02) | LOC: EMS 11:25 | PROVIDERS: ATTEND Surgery | DX: R07.9 Chest pain, unspecified (principal); R11.2 Nausea with vomiting, unspecified | CPT/HCPCS: A0425; A0427; A0888 ==

== ENCOUNTER 2019-11-19 06:25 | Outpatient (CLI) | payer MEDICARE | END 2019-11-19 06:26 | disposition EMS.NT | LOC: EMS 06:25 | PROVIDERS: ATTEND Surgery | DX: R25.2 Cramp and spasm (principal) ==

== ENCOUNTER 2020-07-03 12:20 | Emergency (ER) | payer MEDICARE ==
--- NOTE | 2020-07-03 12:47 | ED Physician Documentation ---
PD HPI DYSPNEA - Stated complaint Stated Complaint: DIFFICULTY BREATHING - Chief complaint Chief Complaint: Resp - History obtained from History obtained from: Patient - History of Present Illness Timing - onset: How many days ago (several) Timing - onset during: Light activity Timing - duration: Days Timing - details: Gradual onset, Still present Worsened by: Exertion, Laying flat (somewhat), Coughing Associated symptoms: Cough, Wheezing, Bilateral edema (mild). No: Fever, Chest pain / discomfort, Palpitations Similar symptoms before: Diagnosis (mainly COPD but has been on diuretic PRN when gets edema. Not daily use.) Recently seen: Not recently seen Review of Systems Constitutional: denies: Fever, Chills Nose: reports: Congestion. denies: Rhinorrhea / runny nose Throat: denies: Sore throat Respiratory: reports: Dyspnea, Cough (with slight sputum), Wheezing. denies: Hemoptysis GI: denies: Abdominal Pain, Nausea, Vomiting Neurologic: reports: Generalized weakness. 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 Cardiovascular: CABG HEENT: Tonsil/Adenoidectomy - Present Medications Home Medications: Ambulatory Orders Medication Instructions Recorded Confirmed Aspirin 162 mg PO DAILY 07/12/17 09/11/17 Levothyroxine Sodium [Synthroid] 50 mcg PO DAILY 07/12/17 09/11/17 lisinopriL [Lisinopril] 40 mg PO DAILY 07/12/17 09/11/17 Albuterol 2.5 mg INH BID PRN 09/11/17 09/11/17 Amlodipine Besylate 10 mg PO DAILY 09/11/17 09/11/17 [place]-3 Acid Ethyl Esters [Lovaza] 1 gm PO DAILY 09/11/17 09/11/17 Triamterene/Hydrochlorothiazid 1 tab PO DAILY 09/11/17 09/11/17 [Triamterene-Hctz 37.5-25 mg Tb] Azithromycin [Zithromax] 1 gm PO UD #1 packet 09/13/17 Methylprednisolone [Medrol] 4 mg PO UD #1 tab.ds.pk 09/13/17 Doxycycline Monohydrate 100 mg PO BID #14 tablet 07/03/20 predniSONE [Deltasone] 10 mg PO DAILY #14 tablet 07/03/20 - Allergies Allergies/Adverse Reactions: Allergies Allergy/AdvReac Type Severity Reaction Status Date / Time unknown antibiotic Allergy Unknown Uncoded 07/12/17 14:22 - Social History Does the pt smoke?: No Smoking Status: Never smoker Does the pt drink ETOH?: No Does the pt have substance abuse?: No - Immunizations Immunizations are current?: Yes - POLST Patient has POLST: No PD ED PE NORMAL - Vitals Vital signs reviewed: Yes - General General: Alert and oriented X 3, No acute distress, Well developed/nourished - HEENT HEENT: Pharynx benign - Neck Neck: Supple, no meningeal sign, No adenopathy - Cardiac Cardiac: RRR, No murmur - Respiratory Respiratory: No: Clear bilaterally (wheezing. Mild faint crackles at bases. ) - Abdomen Abdomen: Soft, Non tender - Derm Derm: Normal color, Warm and dry - Extremities Extremities: No tenderness to palpate, Normal ROM s pain, No calf tenderness / cord, Other (mild edema in lower legs. ) - Neuro Neuro: Alert and oriented X 3, No motor deficit, Normal speech Results - Vitals Vitals: Vital Signs - 24 hr 07/03/20 07/03/20 07/03/20 12:35 12:46 13:30 Temperature 36.6 C 36.6 C Heart Rate 91 91 74 Respiratory 29 H 29 H 20 Rate Blood Pressure 194/82 H 194/82 H O2 Saturation 95 95 07/03/20 14:54 Temperature 36.6 C Heart Rate 86 Respiratory 24 Rate Blood Pressure 192/71 H O2 Saturation 92 Oxygen O2 Source Room air - EKG (time done) 12:36 Rate: Rate (enter#) (90) Rhythm: NSR [place]: Normal Intervals: Wide QRS Ischemia: Non specific changes Compare to prior EKG: Unchanged from prior EKG (09/11/2017) - Labs Labs: Laboratory Tests 07/03/20 07/03/20 07/03/20 12:55 12:55 12:55 WBC 8.0 RBC 4.80 Hgb 14.2 Hct 43.0 MCV 89.6 MCH 29.6 MCHC 33.0 RDW 14.2 Plt Count 232 MPV 10.6 Neut # (Auto) 7.4 H Lymph # (Auto) 0.3 L [place] # (Auto) 0.1 Eos # (Auto) 0.0 Baso # (Auto) 0.0 Absolute Nucleated RBC 0.00 Nucleated RBC % 0.0 Sodium 137 Potassium 3.8 Chloride 100 L Carbon Dioxide 25 Anion Gap 12.0 BUN 26 H Creatinine 0.9 Estimated GFR (MDRD) 60 L Glucose 154 H Calcium 9.7 Magnesium 1.9 Total Bilirubin 1.1 H AST 21 ALT 19 Alkaline Phosphatase 50 B-Natriuretic Peptide 976 H Total Protein 6.4 L Albumin 3.9 Globulin 2.5 Albumin/Globulin Ratio 1.6 Lipase 28 - Rads (name of study) chest xray Radiology: Prelim report reviewed (no infiltrates. mild vascular congestion. ), See rad report PD MEDICAL DECISION MAKING - ED course Complexity details: considered differential (seems mostly COPD exac but likely some element of CHF given some crackles and elevated BNP.), d/w patient Departure - Departure Disposition: 01 Home, Self Care Clinical Impression: Asthma exacerbation in COPD Dyspnea Qualifiers: Dyspnea type: shortness of breath Qualified Code(s): R06.02 - Shortness of breath Condition: Stable Record reviewed to determine appropriate education?: Yes Instructions: ED COPD Flare Follow-Up: Azul Melgar MD [Primary Care Provider] - Prescriptions: predniSONE [Deltasone] 10 mg PO DAILY #14 tablet Doxycycline Monohydrate 100 mg PO BID #14 tablet Comments: I think your symptoms are mainly a flareup of your COPD. Use your nebulizer at home 4 times a day and extra times as needed. Prednisone tapering over the next week with 30 mg daily for 2 days then 20 mg for 2 days then 10 mg daily for 4 days. Doxycycline antibiotic twice daily for a week. There may be some element of fluid buildup in the lungs as well so do your diuretic daily for the next 2 to 3 days. Recheck if not improving well over the next few days and return sooner if worse. Discharge Date/Time: 07/03/20 15:08
[2020-07-03] MEDS ORDERED: DEXAMETHASONE 10 MG/ML VIAL IVP STA (13:06)
[2020-07-03] MEDS ORDERED: IPRATROPIUM/ALBUTEROL 3 ML NEB INH STA (13:06)
[2020-07-03 13:17] LABS: BASOPHILS % (AUTO) 0.5 %; EOSINOPHILS % (AUTO) 0.4 %; HGB - HEMOGLOBIN 14.2 g/dL (12.0-16.0); LYMPHOCYTES # (AUTO) 0.3 10^3/uL (1.5-3.5); LYMPHOCYTES % (AUTO) 4.3 %; MEAN CORPUSCULAR HEMOGLOBIN 29.6 pg (27.0-31.0); MEAN CORPUSCULAR VOLUME 89.6 fL (81.0-99.0); MEAN PLATELET VOLUME 10.6 fL (7.9-10.8); MONOCYTES # (AUTO) 0.1 10^3/uL (0.0-1.0); MONOCYTES % (AUTO) 1.8 %; NEUTROPHILS # (AUTO) 7.4 10^3/uL (1.5-6.6); NEUTROPHILS % (AUTO) 92.1 %; PLT - PLATELET COUNT 232 10^3/uL (130-450); RED CELL DISTRIBUTION WIDTH 14.2 % (12.0-15.0)
[2020-07-03 13:28] LABS: ALBUMIN 3.9 g/dL (3.2-5.5); ALBUMIN/GLOBULIN RATIO 1.6 (1.0-2.2); BILIRUBIN,TOTAL 1.1 mg/dL (0.2-1.0); CALCIUM 9.7 mg/dL (8.5-10.3); CREATININE 0.9 mg/dL (0.4-1.0); MAGNESIUM 1.9 mg/dL (1.7-2.8); TOTAL PROTEIN 6.4 g/dL (6.7-8.2)
--- NOTE | 2020-07-03 13:37 | XRAY Report ---
PROCEDURE: Chest 2 View X-Ray INDICATIONS: Short of air TECHNIQUE: 2 view(s) of the chest. COMPARISON: 11/11/2016, 07/12/2017 FINDINGS: Surgical changes and devices: Sternotomy changes are noted. Apparent abandoned epicardial leads ar e seen. Please correlate with known patient history. Lungs and pleura: No pleural effusions or pneumothorax. Lungs are clear, yet hyperexpanded. Mediastinum: Prominent tortuosity is seen of the aorta, with calcification of the aortic arch. The ap pearance is similar to 2017. The cardiac contours are mildly enlarged. Bones and chest wall: No suspicious bony abnormalities. Age-appropriate degenerative changes are se en. Soft tissues appear unremarkable. IMPRESSION: Hyperexpanded lungs are seen, without an acute abnormality identified. Postoperative and degenerative changes are seen. Prominent aorta, with calcification of the aortic arch, as previously seen. Reviewed by: Darian Tamez MD on 07/03/2020 12:36 PM [facility] Approved by: Darian Tamez MD on 07/03/2020 12:36 PM [facility] Station ID: [id number]
[2020-07-03] MEDS ORDERED: FUROSEMIDE 20 MG/2 ML VIAL IVP STA (13:49)
[2020-07-03] MEDS ORDERED: DOXYCYCLINE 100 MG TABLET PO STA (13:50)
[2020-07-03 14:55] VITALS: BP 192/71
== END 2020-07-03 15:08 | disposition home or self-care (01) ==
LOC: ED 12:20
DX: J44.1 Chronic obstructive pulmonary disease with (acute) exacerbation (principal)
CPT/HCPCS: 36415; 71046; 80053; 83690; 83735; 83880; 85025; 93005; 94640; 96374; 96375; 99284; A9270

== ENCOUNTER 2020-11-17 18:36 | Outpatient (CLI) | payer MEDICARE | END 2020-11-17 18:37 | disposition short-term general hospital (02) | LOC: EMS 18:36 | PROVIDERS: ATTEND Surgery | DX: R07.9 Chest pain, unspecified (principal) | CPT/HCPCS: A0425; A0427 ==

== ENCOUNTER 2021-07-29 21:22 | Outpatient (CLI) | payer MEDICARE | END 2021-07-29 21:23 | disposition EMS.NT | LOC: EMS 21:22 | DX: R45.89 Other symptoms and signs involving emotional state (principal) ==

== ENCOUNTER 2021-08-09 09:44 | Outpatient (CLI) | payer MEDICARE ==
--- NOTE | 2021-08-10 08:09 | XRAY Report ---
PROCEDURE: Chest 2 View X-Ray INDICATIONS: DYSPNEA TECHNIQUE: 2 view(s) of the chest. COMPARISON: 07/03/2020. FINDINGS: Surgical changes and devices: Postsurgical changes are redemonstrated mediastinal. Lungs and pleura: There is bilateral interstitial prominence which appears similar to the prior stud y and likely represents chronic interstitial changes. Linear opacities are also redemonstrated in the lung bases compatible scarring. No acute consolidation. No pleural effusions or pneumothorax. Mediastinum: Mediastinal contours are unchanged. Heart size is enlarged. Bones and chest wall: No suspicious bony abnormalities. Soft tissues appear unremarkable. IMPRESSION: 1. Chronic interstitial prominence redemonstrated suggestive of interstitial lung disease. Further ev aluation may be obtained with a high-resolution chest CT if clinically indicated. 2. No acute consolidation. Reviewed by: Shamar Ulloa MD on 08/10/2021 8:08 AM PDT Approved by: Shamar Ulloa MD on 08/10/2021 8:08 AM PDT Station ID: [id number]
== END 2021-08-09 09:45 ==
LOC: DI.N 09:44
PROVIDERS: ATTEND Family Medicine
DX: R06.00 Dyspnea, unspecified (principal)

== ENCOUNTER 2021-08-09 18:04 | Outpatient (CLI) | payer MEDICARE | END 2021-08-09 23:59 | disposition home or self-care (01) | LOC: LAB 18:04 | PROVIDERS: ATTEND Family Medicine | DX: R53.83 Other fatigue (principal); Z20.822 Contact with and (suspected) exposure to COVID-19 ==

== ENCOUNTER 2021-10-13 11:18 | Outpatient (CLI) | payer MEDICARE | END 2021-10-13 23:59 | disposition home or self-care (01) | LOC: LAB.N 11:18 | PROVIDERS: ATTEND Nurse Practitioner | DX: R05.9 Cough, unspecified (principal); Z20.822 Contact with and (suspected) exposure to COVID-19 ==

== ENCOUNTER 2021-11-19 08:00 | Outpatient (CLI) | payer MEDICARE ==
--- NOTE | 2021-11-19 12:26 | XRAY Report ---
PROCEDURE: Chest 2 View X-Ray INDICATIONS: FATIGUE/COVID SYMPTOMS/ HX OF COPD TECHNIQUE: 2 view(s) of the chest. COMPARISON: 08/09/2021, 07/03/2020, 09/11/2017. FINDINGS: Surgical changes and devices: Post CABG changes are seen. Cholecystectomy clips are seen. A band of epicardial pacer leads can be seen anteriorly and inferiorly. Lungs and pleura: No pleural effusions or pneumothorax. Minimal interstitial prominence can be seen. Mediastinum: Prominence and tortuosity can be seen of the calcified aortic arch. Heart size is mildly to moderately enlarged. Bones and chest wall: No suspicious bony abnormalities. Age-appropriate degenerative changes are see n. Soft tissues appear unremarkable. IMPRESSION: Mild cardiomegaly with minimal interstitial prominence. Please consider CHF with fluid o verload. Differential diagnosis would also include atypical infiltrate (including COVID pneumonia) ye t this is considered to be less likely. Prominent, tortuous, calcified aortic arch Postoperative and degenerative changes are seen. Reviewed by: Darian Tamez MD on 11/19/2021 11:25 AM [facility] Approved by: Darian Tamez MD on 11/19/2021 11:25 AM [facility] Station ID: [id number]
== END 2021-11-19 23:59 | disposition home or self-care (01) ==
LOC: DI.N 08:00
PROVIDERS: ATTEND Physician Assistant
DX: I51.7 Cardiomegaly (principal); R91.8 Other nonspecific abnormal finding of lung field; R53.83 Other fatigue

== ENCOUNTER 2021-11-26 13:14 | Outpatient (CLI) | payer MEDICARE | END 2021-11-26 13:15 | disposition EMS.NT | LOC: EMS 13:14 | DX: R45.89 Other symptoms and signs involving emotional state (principal) ==

== ENCOUNTER 2021-11-29 01:24 | Outpatient (CLI) | payer MEDICARE | END 2021-11-29 01:25 | disposition short-term general hospital (02) | LOC: EMS 01:24 | DX: R07.9 Chest pain, unspecified (principal); R05.9 Cough, unspecified | CPT/HCPCS: A0425; A0427 ==

== ENCOUNTER 2022-02-23 08:04 | Outpatient (CLI) | payer MEDICARE | END 2022-02-23 08:05 | disposition EMS.NT | LOC: EMS 08:04 | DX: R06.02 Shortness of breath (principal) ==

== ENCOUNTER 2022-02-24 20:42 | Outpatient (CLI) | payer MEDICARE | END 2022-02-24 20:43 | disposition short-term general hospital (02) | LOC: EMS 20:42 | DX: R06.02 Shortness of breath (principal); R53.1 Weakness; R42 Dizziness and giddiness; R63.0 Anorexia; Z99.81 Dependence on supplemental oxygen | CPT/HCPCS: A0425; A0427 ==

== ENCOUNTER 2022-03-10 18:03 | Outpatient (CLI) | payer MEDICARE | END 2022-03-10 18:04 | disposition short-term general hospital (02) | LOC: EMS 18:03 | DX: R07.89 Other chest pain (principal) | CPT/HCPCS: A0425; A0427 ==

== ENCOUNTER 2022-07-07 08:02 | Outpatient (CLI) | payer MEDICARE | END 2022-07-07 08:03 | disposition short-term general hospital (02) | LOC: EMS 08:02 | DX: R07.89 Other chest pain (principal) | CPT/HCPCS: A0425; A0427; A0888 ==

== ENCOUNTER 2022-08-08 05:19 | Outpatient (CLI) | payer MEDICARE | END 2022-08-08 05:20 | disposition EMS.NT | LOC: EMS 05:19 | DX: R07.89 Other chest pain (principal); M62.838 Other muscle spasm ==

== ENCOUNTER 2022-08-25 18:35 | Outpatient (CLI) | payer MEDICARE | END 2022-08-25 23:59 | disposition home or self-care (01) | LOC: LAB.N 18:35 | PROVIDERS: ATTEND Physician Assistant | DX: R30.0 Dysuria (principal) | CPT/HCPCS: 87077; 87086; 87181 ==

== ENCOUNTER 2023-01-11 18:26 | Outpatient (CLI) | payer MEDICARE | END 2023-01-11 18:27 | disposition EMS.NT | LOC: EMS 18:26 | DX: M25.562 Pain in left knee (principal); M79.644 Pain in right finger(s); W01.0XXA Fall on same level from slipping, tripping and stumbling without subsequent striking against object, initial encounter; Y92.512 Supermarket, store or market as the place of occurrence of the external cause ==

== ENCOUNTER 2023-01-12 07:10 | Outpatient (CLI) | payer MEDICARE | END 2023-01-12 07:11 | disposition EMS.NT | LOC: EMS 07:10 | DX: M25.552 Pain in left hip (principal); M79.642 Pain in left hand ==

== ENCOUNTER 2023-01-15 14:45 | Outpatient (CLI) | payer MEDICARE ==
[2023-01-15 17:53] LABS: BASOPHILS # (AUTO) 0.1 10^3/uL (0.0-0.1); BASOPHILS % (AUTO) 0.7 %; EOSINOPHILS # (AUTO) 0.3 10^3/uL (0.0-0.7); EOSINOPHILS % (AUTO) 4.6 %; HCT - HEMATOCRIT 39.8 % (37.0-47.0); HGB - HEMOGLOBIN 12.9 g/dL (12.0-16.0); LYMPHOCYTES # (AUTO) 1.1 10^3/uL (1.5-3.5); LYMPHOCYTES % (AUTO) 15.1 %; MEAN CORPUSCULAR HEMOGLOBIN 28.2 pg (27.0-31.0); MEAN CORPUSCULAR HGB CONC 32.4 g/dL (32.0-36.0); MEAN CORPUSCULAR VOLUME 87.1 fL (81.0-99.0); MEAN PLATELET VOLUME 10.7 fL (7.9-10.8); MONOCYTES # (AUTO) 0.5 10^3/uL (0.0-1.0); MONOCYTES % (AUTO) 6.6 %; NEUTROPHILS # (AUTO) 5.3 10^3/uL (1.5-6.6); NEUTROPHILS % (AUTO) 72.7 %; PLT - PLATELET COUNT 234 10^3/uL (130-450); RED BLOOD COUNT 4.57 10^6/uL (4.20-5.40); RED CELL DISTRIBUTION WIDTH 15.5 % (12.0-15.0); WHITE BLOOD COUNT 7.2 x10^3/uL (4.8-10.8)
[2023-01-15 18:19] LABS: ALBUMIN 3.8 g/dL (3.2-5.5); ALBUMIN/GLOBULIN RATIO 1.3 (1.0-2.2); BILIRUBIN,TOTAL 0.6 mg/dL (0.2-1.0); CALCIUM 9.9 mg/dL (8.5-10.3); CREATININE 0.8 mg/dL (0.4-1.0); POTASSIUM 3.9 mmol/L (3.5-5.0); TOTAL PROTEIN 6.8 g/dL (6.7-8.2)
[2023-01-15 18:20] LABS: THYROID STIMULATING HORMONE 8.75 uIU/mL (0.34-5.60)
[2023-01-15 19:13] LABS: FREE T4 (FREE THYROXINE) 0.72 ng/dL (0.58-1.64)
== END 2023-01-15 15:00 | disposition home or self-care (01) ==
LOC: LAB.N 14:45
PROVIDERS: ATTEND Family Medicine
DX: D64.9 Anemia, unspecified (principal); R53.83 Other fatigue; E03.9 Hypothyroidism, unspecified
CPT/HCPCS: 36415; 80053; 83540; 84439; 84443; 84466; 85025

== ENCOUNTER 2023-02-12 08:00 | Outpatient (CLI) | payer MEDICARE | END 2023-02-12 23:59 | disposition home or self-care (01) | LOC: LAB.N 08:00 | PROVIDERS: ATTEND Physician Assistant | DX: Z20.822 Contact with and (suspected) exposure to COVID-19 (principal) ==

== ENCOUNTER 2023-02-16 15:55 | Outpatient (CLI) | payer MEDICARE | END 2023-02-16 23:59 | disposition short-term general hospital (02) | LOC: EMS 15:55 | DX: R53.1 Weakness (principal); R68.83 Chills (without fever); R05.9 Cough, unspecified; Z99.81 Dependence on supplemental oxygen | CPT/HCPCS: A0425; A0429; A0888 ==

== ENCOUNTER 2023-02-19 14:02 | Outpatient (CLI) | payer MEDICARE | END 2023-02-19 23:59 | disposition critical access hospital (66) | LOC: EMS 14:02 | DX: M79.672 Pain in left foot (principal); R53.81 Other malaise; Z99.81 Dependence on supplemental oxygen | CPT/HCPCS: A0425; A0429 ==

== ENCOUNTER 2023-02-19 14:25 | Emergency (ER) | payer MEDICARE ==
[2023-02-19] MEDS ORDERED: HYDROcod/ACETAM 5/325 MG TABLET PO STA (14:30)
--- NOTE | 2023-02-19 14:32 | ED Physician Documentation ---
History of Present Illness - Stated complaint Stated Complaint: GENERAL WEAKNESS - History obtained from History obtained from: Patient, EMS - Additonal information Additional information: This is an 87-year-old woman presents by ambulance for the evaluation of foot pain and feeling bad in the setting of community-acquired pneumonia treated 3 days ago. She has a history of coronary disease, [place] bypass, CHF and COPD. She was not feeling well and went to the clinic on Sunday, from there went to [facility] where she was treated and released for pneumonia. Receiving a prescription for Zithromax. Her main complaint today is 1 week worth of atraumatic left foot pain, on the distal plantar surface. But she also does not really feel better from a pneumonia perspective either with continued cough. She denies fevers. She is very fatigued. 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: Hysterectomy Cardiovascular: CABG HEENT: Tonsil/Adenoidectomy - Present Medications Home Medications: Ambulatory Orders Medication Instructions Recorded Confirmed Aspirin 162 mg PO DAILY 07/12/17 09/11/17 Levothyroxine Sodium [Synthroid] 50 mcg PO DAILY 07/12/17 09/11/17 lisinopriL [Lisinopril] 40 mg PO DAILY 07/12/17 09/11/17 Albuterol 2.5 mg INH BID PRN 09/11/17 09/11/17 Amlodipine Besylate 10 mg PO DAILY 09/11/17 09/11/17 Artesian-3 Acid Ethyl Esters [Lovaza] 1 gm PO DAILY 09/11/17 09/11/17 Triamterene/Hydrochlorothiazid 1 tab PO DAILY 09/11/17 09/11/17 [Triamterene-Hctz 37.5-25 mg Tb] Azithromycin [Zithromax] 1 gm PO UD #1 packet 09/13/17 methylPREDNISolone [Medrol] 4 mg PO UD #1 tab.ds.pk 09/13/17 Doxycycline Monohydrate 100 mg PO BID #14 tablet 07/03/20 predniSONE [Deltasone] 10 mg PO DAILY #14 tablet 07/03/20 Amoxicillin 2 tab PO TID #30 cap 02/19/23 HYDROcod/ACETAM 5/325 [[place] 5/325] 1 - 2 tab PO Q6H PRN #15 tablet 02/19/23 - Allergies Allergies/Adverse Reactions: Allergies Allergy/AdvReac Type Severity Reaction Status Date / Time unknown antibiotic Allergy Unknown Uncoded 02/19/23 14:40 - Social History Does the pt smoke?: No Smoking Status: Never smoker Does the pt drink ETOH?: No Does the pt have substance abuse?: No - Immunizations Immunizations are current?: Yes - POLST Patient has POLST: No PD ED PE NORMAL - Vitals Vital signs reviewed: Yes - General General: No acute distress, Well developed/nourished - HEENT HEENT: PERRL, EOMI - Neck Neck: Supple, no meningeal sign, No bony TTP - Cardiac Cardiac: RRR, Other (3 out of 6 decrescendo systolic murmur heard best at the left upper sternal border) - Respiratory Respiratory: No respiratory distress (Mildly diminished throughout, nonlabored) - Abdomen Abdomen: Non tender - Extremities Extremities: Other (She is tender on the plantar surface of the left foot near the distal second and third metatarsals. There is no warmth or redness there. No proximal or mid foot tenderness. No tenderness on the dorsal part of the foot.) - Neuro Neuro: Alert and oriented X 3, Normal speech Results - Vitals Vitals: Vital Signs - 24 hr 02/19/23 14:35 Temperature 36.8 C Heart Rate 74 Respiratory 18 Rate Blood Pressure 111/53 L O2 Saturation 97 Oxygen O2 Source Nasal cannula Oxygen Flow Rate 2 - Labs Labs: Laboratory Tests 02/19/23 02/19/23 02/19/23 14:30 14:54 14:54 WBC 15.4 H RBC 4.46 Hgb 12.9 Hct 39.4 MCV 88.3 MCH 28.9 MCHC 32.7 RDW 14.6 Plt Count 325 MPV 9.5 Neut # (Auto) 13.0 H Lymph # (Auto) 1.1 L Union # (Auto) 0.9 Eos # (Auto) 0.2 Baso # (Auto) 0.1 Absolute Nucleated RBC 0.00 Nucleated RBC % 0.0 Sodium 135 Potassium 4.0 Chloride 92 L Carbon Dioxide 31 Anion Gap 12.0 BUN 32 H Creatinine 1.1 H Estimated GFR (MDRD) 47 L Glucose 140 H Lactic Acid 1.2 Calcium 9.8 Total Bilirubin 0.9 AST 22 ALT 19 Alkaline Phosphatase 83 Total Protein 7.1 Albumin 3.1 L Globulin 4.0 Albumin/Globulin Ratio 0.8 L - Rads (name of study) Cardiomegaly with right upper lobe pneumonia on single view chest x-ray Relevant Findings:: Final report received, EMP independent interpretation of test Three-view left foot x-ray showing plantar calcaneal spur and bunion morphology Relevant Findings:: Final report received, EMP independent interpretation of test PD Medical Decision Making - ED course ED course: This is a desean 87-year-old woman who presents with a chief complaint of left foot pain, and she is definitely tender in the bottom the left foot but without signs of infection and corresponding x-ray shows only "chronic findings. She also has pneumonia. She has been on Zithromax for a few days. Zithromax alone. Her white count is 15,000 and the x-ray shows a right upper lobe infiltrate. From that perspective I offered admission to the hospital but, with the expectation that currently she would be the seventh patient boarding for admission and she declined preferring to go home with a second antibiotic. She was administered IV Rocephin here. Departure - Departure Disposition: 01 Home, Self Care Clinical Impression: Pneumonia Qualifiers: Pneumonia type: due to unspecified organism Laterality: right Lung location: upper lobe of lung Qualified Code(s): J18.9 - Pneumonia, unspecified organism Condition: Good Record reviewed to determine appropriate education?: Yes Instructions: Pneumonia Dc Follow-Up: Katy Salazar ARNP [Primary Care Provider] - Prescriptions: Amoxicillin 2 tab PO TID #30 cap HYDROcod/ACETAM 5/325 [[place] 5/325] 1 - 2 tab PO Q6H PRN #15 tablet PRN Reason: Pain Comments: I am adding a second antibiotic for the pneumonia. I sent this prescription to [facility]. You do not need any more antibiotics today, we gave you a shot here. You can finish out the Zithromax he gave you the other day as well. I am also prescribing some pain medications for the foot. Those will be waiting at [facility] as well. The x-ray of your foot does not show anything obvious. You should still follow-up with your primary care physician over the next few days, return for worsening symptoms. I am prescribing a short course of narcotic pain medication for you. These are potentially dangerous and addictive medications that should be used carefully. These medications may constipate you. Take an [id number] stool softener (docusate) twice daily with plenty of water while taking these medications. If you go 24 hours without a bowel movement, take [id number] miralax, per package instructions. Do not drink or drive while taking these medications. If you received narcotic or sedating medications while in the emergency department, do not drive for 24 hours. Store this medication in a safe, secure place and out of reach of children. It is a violation of federal law to give or sell this medication to another person or to use in a manner other than prescribed. The ED will not refill narcotic prescriptions, including prescriptions lost or stolen. To dispose of unwanted medications: 1. [facility] [address] in [place] has a medication drop box. They accept prescription medications (in pill form) Sunday through Sunday 9:00 a.m. to 5:00 p.m. 2. The [facility] [employer] accepts prescription medications (in pill form only) for disposal year round. Call for more information. 3. Contact the [facility] for the next [facility] sponsored prescription drug collection event. , [phone], or [phone]; Note that many narcotic pain relievers also contain Tylenol/acetaminophen. Please ensure that your total dose of acetaminophen from all sources does not exceed 3 g (3000 mg) per day.
[2023-02-19 15:01] LABS: BASOPHILS # (AUTO) 0.1 10^3/uL (0.0-0.1); BASOPHILS % (AUTO) 0.3 %; EOSINOPHILS # (AUTO) 0.2 10^3/uL (0.0-0.7); EOSINOPHILS % (AUTO) 1.1 %; HCT - HEMATOCRIT 39.4 % (37.0-47.0); HGB - HEMOGLOBIN 12.9 g/dL (12.0-16.0); LYMPHOCYTES # (AUTO) 1.1 10^3/uL (1.5-3.5); LYMPHOCYTES % (AUTO) 7.1 %; MEAN CORPUSCULAR HEMOGLOBIN 28.9 pg (27.0-31.0); MEAN CORPUSCULAR HGB CONC 32.7 g/dL (32.0-36.0); MEAN CORPUSCULAR VOLUME 88.3 fL (81.0-99.0); MEAN PLATELET VOLUME 9.5 fL (7.9-10.8); MONOCYTES # (AUTO) 0.9 10^3/uL (0.0-1.0); MONOCYTES % (AUTO) 5.8 %; NEUTROPHILS % (AUTO) 84.5 %; PLT - PLATELET COUNT 325 10^3/uL (130-450); RED BLOOD COUNT 4.46 10^6/uL (4.20-5.40); RED CELL DISTRIBUTION WIDTH 14.6 % (12.0-15.0); WHITE BLOOD COUNT 15.4 x10^3/uL (4.8-10.8)
[2023-02-19 15:15] LABS: ALBUMIN 3.1 g/dL (3.2-5.5); ALBUMIN/GLOBULIN RATIO 0.8 (1.0-2.2); BILIRUBIN,TOTAL 0.9 mg/dL (0.2-1.0); CALCIUM 9.8 mg/dL (8.5-10.3); CREATININE 1.1 mg/dL (0.4-1.0); TOTAL PROTEIN 7.1 g/dL (6.7-8.2)
--- OUTSIDE RECORDS SUMMARY | 2023-02-19 15:29 | EXTERNAL MEDICAL SUMMARY RPT | Continuity of Care Document ---
:1935 Author Organization [facility] Address [address] [place] [address] Phone Care Team Providers Name Role Phone Unavailable Unavailable Unavailable Azul Melgar Unavailable Unavailable Allergies and Intolerances date description facility type (no date) Mild [facility] (unknown) (no date) Sulfa (Sulfonamide Antibiotics) [facility] (unknown) (no date) acarbose [facility] (unknown) (no date) amlodipine [facility] (unknown) (no date) budesonide [facility] (unknown) (no date) carvedilol [facility] (unknown) (no date) chlorthalidone [facility] (unknown) (no date) choline fenofibrate [facility] (unknown) (no date) doxazosin [facility] (unknown) (no date) doxycycline [facility] (unknown) (no date) formoterol [facility] (unknown) (no date) gemfibrozil [facility] (unknown) (no date) levofloxacin [facility] (unknown) (no date) losartan [facility] (unknown) (no date) metoprolol [facility] (unknown) (no date) montelukast [facility] (unknown) (no date) nifedipine [facility] (unknown) (no date) sulfamethoxazole [facility] (unknown) (no date) trimethoprim [facility] (unknown) Encounters No information. Functional Status No information. Immunizations No information. 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:00 XR knee LT 3V [facility] 2022-12-06 00:00 [facility] Results/Labs test date author facility value unit interpret ation Result panel 1 (unknown) (no date) ([facility] Result panel 2 (unknown) (no date) (unknown[facility] Result panel 3 (unknown) (no date) (unknown[facility] Result panel 4 (unknown) (no date) (unknown[facility] Result panel 5 (unknown) (no date) (unknown[facility] Result panel 6 (unknown) (no date) (unknown[facility] Result panel 7 (unknown) (no date) (unknown[facility] Result panel 8 (unknown) (no date) (unknown[facility] Result panel 9 (unknown) (no date) (unknown[facility] Result panel 10 (unknown) (no date) (unknown[facility] Result panel 11 (unknown) (no date) (unknown[facility] Result panel 12 (unknown) (no date) (unknown[facility] Result panel 13 (unknown) (no date) (unknown[facility] Result panel 14 (unknown) (no date) (unknown[facility] Result panel 15 (unknown) (no date) (unknown[facility] Result panel 16 (unknown) (no date) (unknown[facility] Result panel 17 (unknown) (no date) (unknown[facility] Result panel 18 (unknown) (no date) (unknown[facility] Result panel 19 (unknown) (no date) (unknown[facility] Result panel 20 (unknown) (no date) (unknown[facility] Result panel 21 (unknown) (no date) (unknown[facility] Result panel 22 (unknown) (no date) (unknown[facility] Result panel 23 (unknown) (no date) (unknown[facility] Result panel 24 (unknown) (no date) (unknown[facility] Result panel 25 (unknown) (no date) (unknown[facility] Result panel 26 (unknown) (no date) (unknown[facility] Result panel 27 (unknown) (no date) (unknown[facility] Result panel 28 (unknown) (no date) (unknown[facility] Result panel 29 (unknown) (no date) (unknown[facility] Result panel 30 (unknown) (no date) (unknown[facility] Result panel 31 (unknown) (no date) (unknown) [facility] Result panel 32 (unknown) (no date) (unknown[facility] Result panel 33 (unknown) (no date) (unknown) [facility] Result panel 34 (unknown) (no date) (unknown[facility] Result panel 35 (unknown) (no date) (unknown[facility] Result panel 36 (unknown) (no date) (unknown[facility] Result panel 37 (unknown) (no date) (unknown[facility] Result panel 38 (unknown) (no date) (unknown[facility] Result panel 39 (unknown) (no date) (unknown[facility] Result panel 40 (unknown) (no date) (unknown[facility] Result panel 41 (unknown) (no date) (unknown[facility] Result panel 42 (unknown) (no date) (unknown[facility] Result panel 43 (unknown) (no date) (unknown[facility] Result panel 44 (unknown) (no date) (unknown[facility] Result panel 45 (unknown) (no date) (unknown[facility] Result panel 46 (unknown) (no date) (unknown[facility] Result panel 47 (unknown) (no date) (unknown[facility] Result panel 48 (unknown) (no date) (unknown[facility] Result panel 49 (unknown) (no date) (unknown[facility] Result panel 50 (unknown) (no date) (unknown[facility] Result panel 51 (unknown) (no date) (unknown) [facility] Result panel 52 (unknown) (no date) (unknown) [facility] Result panel 53 (unknown) (no date) (unknown) [facility] Result panel 54 (unknown) (no date) (unknown) [facility] Result panel 55 (unknown) (no date) (unknown[facility] Result panel 56 (unknown) (no date) (unknown) [facility] Result panel 57 (unknown) (no date) (unknown[facility] Result panel 58 (unknown) (no date) (unknown) [facility] Result panel 59 (unknown) (no date) (unknown[facility] Result panel 60 (unknown) (no date) (unknown[facility] Result panel 61 (unknown) (no date) (unknown[facility] Result panel 62 (unknown) (no date) (unknown) [facility] Result panel 63 (unknown) (no date) (unknown[facility] Result panel 64 (unknown) (no date) (unknown[facility] Result panel 65 (unknown) (no date) (unknown) [facility] Result panel 66 (unknown) (no date) (unknown) [facility]) Result panel 67 (unknown) (no date) (unknown) [facility] Result panel 68 (unknown) (no date) (unknown) [facility] Result panel 69 (unknown) (no date) (unknown) [facility] Result panel 70 (unknown) (no date) (unknown) [facility]) Result panel 71 (unknown) (no date) (unknown) [facility] Result panel 72 (unknown) (no date) (unknown) [facility]) Result panel 73 (unknown) (no date) (unknown) [facility] Result panel 74 (unknown) (no date) (unknown) [facility] Result panel 75 (unknown) (no date) (unknown) [facility] Result panel 76 (unknown) (no date) (unknown[facility] Result panel 77 (unknown) (no date) (unknown[facility] Result panel 78 (unknown) (no date) (unknown) [facility] Result panel 79 (unknown) (no date) (unknown[facility] Result panel 80 (unknown) (no date) (unknown[facility] Result panel 81 (unknown) (no date) (unknown[facility] Result panel 82 (unknown) (no date) (unknown) [facility] Result panel 83 (unknown) (no date) (unknown[facility] Result panel 84 (unknown) (no date) (unknown) [facility] Result panel 85 (unknown) (no date) (unknown[facility] Result panel 86 (unknown) (no date) (unknown[facility] Result panel 87 (unknown) (no date) (unknown) [facility] Result panel 88 (unknown) (no date) (unknown) [facility] Result panel 89 (unknown) (no date) (unknown[facility] Result panel 90 (unknown) (no date) (unknown[facility] Result panel 91 (unknown) (no date) (unknown[facility] Result panel 92 (unknown) (no date) (unknown) [facility] Result panel 93 (unknown) (no date) (unknown) [facility] Result panel 94 (unknown) (no date) (unknown[facility] Result panel 95 (unknown) (no date) (unknown[facility] Result panel 96 (unknown) (no date) (unknown) [facility]) Result panel 97 (unknown) (no date) (unknown) [facility] Result panel 98 (unknown) (no date) (unknown[facility] Result panel 99 (unknown) (no date) (unknown[facility] Result panel 100 (unknown) (no date) (unknown[facility] Result panel 101 (unknown) (no date) (unknown[facility] Result panel 102 (unknown) (no date) (unknown[facility] Result panel 103 (unknown) (no date) (unknown[facility] Result panel 104 (unknown) (no date) (unknown[facility] Result panel 105 (unknown) (no date) (unknown[facility] Result panel 106 (unknown) (no date) (unknown[facility] Result panel 107 (unknown) (no date) (unknown[facility] Result panel 108 (unknown) (no date) (unknown[facility] Result panel 109 (unknown) (no date) (unknown[facility] Result panel 110 (unknown) (no date) (unknown) [facility]) Result panel 111 (unknown) (no date) (unknown) [facility] Result panel 112 (unknown) (no date) (unknown) [facility]) Result panel 113 (unknown) (no date) (unknown[facility] Result panel 114 (unknown) (no date) (unknown[facility] Result panel 115 (unknown) (no date) (unknown) [facility]) Result panel 116 (unknown) (no date) (unknown[facility] Result panel 117 (unknown) (no date) (unknown[facility] Result panel 118 (unknown) (no date) (unknown[facility] Result panel 119 (unknown) (no date) (unknown[facility] Result panel 120 (unknown) (no date) (unknown[facility] Result panel 121 (unknown) (no date) (unknown[facility] Result panel 122 (unknown) (no date) (unknown[facility] Result panel 123 (unknown) (no date) (unknown[facility] Result panel 124 (unknown) (no date) (unknown) [facility] Result panel 125 (unknown) (no date) (unknown[facility]) Result panel 126 (unknown) (no date) (unknown[facility] Result panel 127 (unknown) (no date) (unknown[facility] Result panel 128 (unknown) (no date) (unknown[facility] Result panel 129 (unknown) (no date) (unknown[facility] Result panel 130 (unknown) (no date) (unknown) [facility]) Result panel 131 (unknown) (no date) (unknown[facility] Result panel 132 (unknown) (no date) (unknown) [facility] Result panel 133 (unknown) (no date) (unknown) [facility] Result panel 134 (unknown) (no date) (unknown) [facility] Result panel 135 (unknown) (no date) (unknown) [facility] Result panel 136 (unknown) (no date) (unknown) [facility]) Result panel 137 (unknown) (no date) (unknown) [facility] Result panel 138 (unknown) (no date) (unknown) [facility]) Result panel 139 (unknown) (no date) (unknown) [facility] Result panel 140 (unknown) (no date) (unknown) [facility] Result panel 141 (unknown) (no date) (unknown) [facility] Result panel 142 (unknown) (no date) (unknown) [facility] Result panel 143 (unknown) (no date) (unknown) [facility] Result panel 144 (unknown) (no date) (unknown) [facility] Result panel 145 (unknown) (no date) (unknown) [facility] Result panel 146 (unknown) (no date) (unknown) [facility] Result panel 147 (unknown) (no date) (unknown) [facility] Result panel 148 (unknown) (no date) (unknown) [facility] Result panel 149 (unknown) (no date) (unknown) [facility] Result panel 150 (unknown) (no date) (unknown) [facility] Result panel 151 (unknown) (no date) (unknown) [facility] Result panel 152 (unknown) (no date) (unknown) [facility] Result panel 153 (unknown) (no date) (unknown) [facility] Result panel 154 (unknown) (no date) (unknown) [facility] Result panel 155 (unknown) (no date) (unknown) [facility] Result panel 156 (unknown) (no date) (unknown) [facility] Result panel 157 (unknown) (no date) (unknown) [facility] Result panel 158 (unknown) (no date) (unknown) [facility] Result panel 159 (unknown) (no date) (unknown) [facility] Result panel 160 (unknown) (no date) (unknown) [facility] Result panel 161 (unknown) (no date) (unknown) [facility] Result panel 162 (unknown) (no date) (unknown) [facility] Result panel 163 (unknown) (no date) (unknown) [facility] Result panel 164 (unknown) (no date) (unknown) [facility] Result panel 165 (unknown) (no date) (unknown) [facility] Result panel 166 (unknown) (no date) (unknown) [facility] Result panel 167 (unknown) (no date) (unknown) [facility] Result panel 168 (unknown) (no date) (unknown) [facility] Result panel 169 (unknown) (no date) (unknown) [facility] Result panel 170 (unknown) (no date) (unknown) [facility] Result panel 171 (unknown) (no date) (unknown) [facility] Result panel 172 (unknown) (no date) (unknown) [facility] Result panel 173 (unknown) (no date) (unknown) [facility] Result panel 174 (unknown) (no date) (unknown) [facility] Result panel 175 (unknown) (no date) (unknown) [facility] Result panel 176 (unknown) (no date) (unknown) [facility] Result panel 177 (unknown) (no date) (unknown) [facility] Result panel 178 (unknown) (no date) (unknown) [facility] Result panel 179 (unknown) (no date) (unknown) [facility] Result panel 180 (unknown) (no date) (unknown) [facility] Result panel 181 (unknown) (no date) (unknown) [facility] Result panel 182 (unknown) (no date) (unknown) [facility] Result panel 183 (unknown) (no date) (unknown) [facility] Result panel 184 (unknown) (no date) (unknown[facility] Result panel 185 (unknown) (no date) (unknown[facility] Result panel 186 (unknown) (no date) (unknown) [facility] Result panel 187 (unknown) (no date) (unknown) [facility] Result panel 188 (unknown) (no date) (unknown) [facility] Result panel 189 (unknown) (no date) (unknown) [facility] Result panel 190 (unknown) (no date) (unknown) [facility] Result panel 191 (unknown) (no date) (unknown) [facility] Result panel 192 (unknown) (no date) (unknown) [facility] Result panel 193 (unknown) (no date) (unknown) [facility] Result panel 194 (unknown) (no date) (unknown) [facility] Result panel 195 (unknown) (no date) (unknown) [facility] Result panel 196 (unknown) (no date) (unknown) [facility] Result panel 197 (unknown) (no date) (unknown) [facility] Result panel 198 (unknown) (no date) (unknown) [facility] Result panel 199 (unknown) (no date) (unknown) [facility] Result panel 200 (unknown) (no date) (unknown) [facility]) Result panel 201 (unknown) (no date) (unknown) [facility] Result panel 202 (unknown) (no date) [facility]) Result panel 203 (unknown) (no date) (unknown) [facility] Result panel 204 (unknown) (no date) (unknown) [facility]) Result panel 205 (unknown) (no date) (unknown) [facility]) Result panel 206 (unknown) (no date) (unknown) [facility]) Result panel 207 (unknown) (no date) (unknown) [facility] Result panel 208 (unknown) (no date) (unknown[facility]) Result panel 209 (unknown) (no date) (unknown) [facility] Result panel 210 (unknown) (no date) (unknown) [facility]) Result panel 211 (unknown) (no date) (unknown) [facility]) Result panel 212 (unknown) (no date) (unknown) [facility]) Result panel 213 (unknown) (no date) (unknown) [facility] Result panel 214 (unknown) (no date) (unknown) [facility]) Result panel 215 (unknown) (no date) (unknown) [facility]) Result panel 216 (unknown) (no date) (unknown) [facility]) Result panel 217 (unknown) (no date) (unknown) [facility]) Result panel 218 (unknown) (no date) (unknown) [facility] Result panel 219 (unknown) (no date) (unknown[facility]) Result panel 220 (unknown) (no date) (unknown) [facility]) Result panel 221 (unknown) (no date) (unknown[facility]) Result panel 222 (unknown) (no date) (unknown) [facility] Result panel 223 (unknown) (no date) (unknown[facility]) Result panel 224 (unknown) (no date) (unknown) [facility]) Result panel 225 (unknown) (no date) (unknown) [facility]) Result panel 226 (unknown) (no date) (unknown) [facility]) Result panel 227 (unknown) (no date) (unknown) [facility]) Result panel 228 (unknown) (no date) (unknown) [facility]) Result panel 229 (unknown) (no date) (unknown) [facility]) Result panel 230 (unknown) (no date) (unknown) [facility]) Result panel 231 (unknown) (no date) (unknown) [facility]) Result panel 232 (unknown) (no date) (unknown) [facility]) Result panel 233 (unknown) (no date) (unknown) [facility]) Result panel 234 (unknown) (no date) (unknown) [facility]) Result panel 235 (unknown) (no date) (unknown) [facility]) Result panel 236 (unknown) (no date) (unknown[facility]) Result panel 237 (unknown) (no date) (unknown) [facility] Result panel 238 (unknown) (no date) (unknown) [facility]) Result panel 239 (unknown) (no date) (unknown) [facility]) Result panel 240 (unknown) (no date) (unknown) [facility]) Result panel 241 (unknown) (no date) (unknown) [facility]) Result panel 242 (unknown) (no date) (unknown) [facility]) Result panel 243 (unknown) (no date) (unknown) [facility]) Result panel 244 (unknown) (no date) (unknown) [facility]) Result panel 245 (unknown) (no date) (unknown) [facility] Result panel 246 (unknown) (no date) (unknown) [facility]) Result panel 247 (unknown) (no date) (unknown) [facility]) Result panel 248 (unknown) (no date) (unknown) [facility]) Result panel 249 (unknown) (no date) (unknown) [facility]) Result panel 250 (unknown) (no date) (unknown) [facility]) Result panel 251 (unknown) (no date) (unknown) [facility]) Result panel 252 (unknown) (no date) (unknown) [facility]) Result panel 253 (unknown) (no date) (unknown) [facility]) Result panel 254 (unknown) (no date) (unknown) [facility]) Result panel 255 (unknown) (no date) (unknown) [facility]) Result panel 256 (unknown) (no date) (unknown) [facility]) Result panel 257 (unknown) (no date) (unknown) [facility]) Result panel 258 (unknown) (no date) (unknown) [facility]) Result panel 259 (unknown) (no date) (unknown) [facility]) Result panel 260 (unknown) (no date) (unknown) [facility]) Result panel 261 (unknown) (no date) (unknown) [facility]) Result panel 262 (unknown) (no date) (unknown) [facility]) Result panel 263 (unknown) (no date) (unknown) [facility]) Result panel 264 (unknown) (no date) (unknown) [facility]) Result panel 265 (unknown) (no date) (unknown) [facility]) Result panel 266 (unknown) (no date) (unknown) [facility]) Result panel 267 (unknown) (no date) (unknown) [facility]) Result panel 268 (unknown) (no date) (unknown) [facility]) Result panel 269 (unknown) (no date) (unknown) [facility]) Result panel 270 (unknown) (no date) (unknown) [facility]) Result panel 271 (unknown) (no date) (unknown) [facility]) Result panel 272 (unknown) (no date) (unknown) [facility]) Result panel 273 (unknown) (no date) (unknown) [facility]) Result panel 274 (unknown) (no date) (unknown) [facility]) Result panel 275 (unknown) (no date) (unknown) [facility]) Result panel 276 (unknown) (no date) (unknown) [facility]) Result panel 277 (unknown) (no date) (unknown) [facility]) Result panel 278 (unknown) (no date) (unknown) [facility]) Result panel 279 (unknown) (no date) (unknown) [facility]) Result panel 280 (unknown) (no date) (unknown) [facility]) Result panel 281 (unknown) (no date) (unknown) [facility]) Result panel 282 (unknown) (no date) (unknown) [facility]) Result panel 283 (unknown) (no date) (unknown) [facility]) Result panel 284 (unknown) (no date) (unknown) [facility]) Result panel 285 (unknown) (no date) (unknown) [facility]) Result panel 286 (unknown) (no date) (unknown) [facility]) Result panel 287 (unknown) (no date) (unknown) [facility]) Result panel 288 (unknown) (no date) (unknown) [facility]) Result panel 289 (unknown) (no date) (unknown) [facility]) Result panel 290 (unknown) (no date) (unknown) [facility]) Result panel 291 (unknown) (no date) (unknown) [facility]) Result panel 292 (unknown) (no date) (unknown) [facility]) Result panel 293 (unknown) (no date) (unknown) [facility]) Result panel 294 (unknown) (no date) (unknown) [facility]) Result panel 295 (unknown) (no date) (unknown) [facility]) Result panel 296 (unknown) (no date) (unknown) [facility]) Result panel 297 (unknown) (no date) (unknown) [facility]) Result panel 298 (unknown) (no date) (unknown) [facility]) Result panel 299 (unknown) (no date) (unknown) [facility]) Result panel 300 (unknown) (no date) (unknown) [facility]) Result panel 301 (unknown) (no date) (unknown) [facility]) Result panel 302 (unknown) (no date) (unknown) [facility]) Result panel 303 (unknown) (no date) (unknown) [facility]) Result panel 304 (unknown) (no date) (unknown) [facility]) Result panel 305 (unknown) (no date) (unknown) [facility] Result panel 306 (unknown) (no date) (unknown) [facility]) Result panel 307 (unknown) (no date) (unknown) [facility]) Result panel 308 (unknown) (no date) (unknown) [facility]) Result panel 309 (unknown) (no date) (unknown) [facility]) Result panel 310 (unknown) (no date) (unknown) [facility]) Result panel 311 (unknown) (no date) (unknown) [facility] Result panel 312 (unknown) (no date) (unknown) [facility]) Result panel 313 (unknown) (no date) (unknown) [facility]) Result panel 314 (unknown) (no date) (unknown) [facility]) Result panel 315 (unknown) (no date) (unknown) [facility]) Result panel 316 (unknown) (no date) (unknown) [facility]) Result panel 317 (unknown) (no date) (unknown) [facility]) Result panel 318 (unknown) (no date) (unknown) [facility]) Result panel 319 (unknown) (no date) (unknown) [facility]) Result panel 320 (unknown) (no date) (unknown) [facility]) Result panel 321 (unknown) (no date) (unknown) [facility]) Result panel 322 (unknown) (no date) (unknown) [facility]) Result panel 323 (unknown) (no date) (unknown) [facility]) Result panel 324 (unknown) (no date) (unknown) [facility]) Result panel 325 (unknown) (no date) (unknown) [facility]) Result panel 326 (unknown) (no date) (unknown) [facility]) Result panel 327 (unknown) (no date) (unknown) [facility]) Result panel 328 (unknown) (no date) (unknown) [facility]) Result panel 329 (unknown) (no date) (unknown) [facility]) Result panel 330 (unknown) (no date) (unknown) [facility]) Result panel 331 (unknown) (no date) (unknown) [facility]) Result panel 332 (unknown) (no date) (unknown) [facility]) Result panel 333 (unknown) (no date) (unknown) [facility]) Result panel 334 (unknown) (no date) (unknown) [facility]) Result panel 335 (unknown) (no date) (unknown) [facility]) Result panel 336 (unknown) (no date) (unknown) [facility]) Result panel 337 (unknown) (no date) (unknown) [facility]) Result panel 338 (unknown) (no date) (unknown) [facility]) Result panel 339 (unknown) (no date) (unknown) [facility]) Result panel 340 (unknown) (no date) (unknown) [facility]) Result panel 341 (unknown) (no date) (unknown) [facility]) Result panel 342 (unknown) (no date) (unknown) [facility]) Result panel 343 (unknown) (no date) (unknown) [facility]) Result panel 344 (unknown) (no date) (unknown) [facility]) Result panel 345 (unknown) (no date) (unknown) [facility]) Result panel 346 (unknown) (no date) (unknown) [facility]) Result panel 347 (unknown) (no date) (unknown) [facility]) Result panel 348 (unknown) (no date) (unknown) [facility]) Result panel 349 (unknown) (no date) (unknown) [facility]) Result panel 350 (unknown) (no date) (unknown) [facility]) Result panel 351 (unknown) (no date) (unknown) [facility]) Result panel 352 (unknown) (no date) (unknown) [facility]) Result panel 353 (unknown) (no date) (unknown) [facility]) Result panel 354 (unknown) (no date) (unknown) [facility]) Result panel 355 (unknown) (no date) (unknown) [facility]) Result panel 356 (unknown) (no date) (unknown) [facility]) Result panel 357 (unknown) (no date) (unknown) [facility]) Result panel 358 (unknown) (no date) (unknown) [facility]) Result panel 359 (unknown) (no date) (unknown) [facility]) Result panel 360 (unknown) (no date) (unknown) [facility]) Result panel 361 (unknown) (no date) (unknown) [facility]) Result panel 362 (unknown) (no date) (unknown) [facility]) Result panel 363 (unknown) (no date) (unknown) [facility]) Result panel 364 (unknown) (no date) (unknown) [facility]) Result panel 365 (unknown) (no date) (unknown) [facility]) Result panel 366 (unknown) (no date) (unknown) [facility]) Result panel 367 (unknown) (no date) (unknown) [facility]) Result panel 368 (unknown) (no date) (unknown) [facility]) Result panel 369 (unknown) (no date) (unknown) [facility]) Result panel 370 (unknown) (no date) (unknown) [facility]) Result panel 371 (unknown) (no date) (unknown) [facility]) Result panel 372 (unknown) (no date) (unknown) [facility]) Result panel 373 (unknown) (no date) (unknown) [facility]) Result panel 374 (unknown) (no date) (unknown) [facility]) Result panel 375 (unknown) (no date) (unknown) [facility]) Result panel 376 (unknown) (no date) (unknown) [facility]) Result panel 377 (unknown) (no date) (unknown) [facility]) Result panel 378 (unknown) (no date) (unknown) [facility]) Result panel 379 (unknown) (no date) (unknown) [facility]) Result panel 380 (unknown) (no date) (unknown) [facility]) Result panel 381 (unknown) (no date) (unknown) [facility]) Result panel 382 (unknown) (no date) (unknown) [facility]) Result panel 383 (unknown) (no date) (unknown) [facility]) Result panel 384 (unknown) (no date) (unknown) [facility]) Result panel 385 (unknown) (no date) (unknown) [facility]) Result panel 386 (unknown) (no date) (unknown) [facility]) Result panel 387 (unknown) (no date) (unknown) [facility]) Result panel 388 (unknown) (no date) (unknown) [facility]) Result panel 389 (unknown) (no date) (unknown) [facility]) Result panel 390 (unknown) (no date) (unknown) [facility]) Result panel 391 (unknown) (no date) (unknown) [facility]) Result panel 392 (unknown) (no date) (unknown) [facility]) Result panel 393 (unknown) (no date) (unknown) [facility]) Result panel 394 (unknown) (no date) (unknown) [facility]) Result panel 395 (unknown) (no date) (unknown) [facility]) Result panel 396 (unknown) (no date) (unknown) [facility]) Result panel 397 (unknown) (no date) (unknown) [facility]) Result panel 398 (unknown) (no date) (unknown) [facility]) Result panel 399 (unknown) (no date) (unknown) [facility]) Result panel 400 (unknown) (no date) (unknown) [facility]) Result panel 401 (unknown) (no date) (unknown) [facility]) Result panel 402 (unknown) (no date) (unknown) [facility]) Result panel 403 (unknown) (no date) (unknown) [facility]) Result panel 404 (unknown) (no date) (unknown) [facility]) Result panel 405 (unknown) (no date) (unknown) [facility]) Result panel 406 (unknown) (no date) (unknown) [facility]) Result panel 407 (unknown) (no date) (unknown) [facility]) Result panel 408 (unknown) (no date) (unknown) [facility]) Result panel 409 (unknown) (no date) (unknown) [facility]) Result panel 410 (unknown) (no date) (unknown) [facility]) Result panel 411 (unknown) (no date) (unknown) [facility]) Result panel 412 (unknown) (no date) (unknown) [facility]) Result panel 413 (unknown) (no date) (unknown) [facility]) Result panel 414 (unknown) (no date) (unknown) [facility]) Result panel 415 (unknown) (no date) (unknown) [facility]) Result panel 416 (unknown) (no date) (unknown) [facility]) Result panel 417 (unknown) (no date) (unknown) [facility]) Result panel 418 (unknown) (no date) (unknown) [facility]) Result panel 419 (unknown) (no date) (unknown) [facility]) Result panel 420 (unknown) (no date) (unknown) [facility]) Result panel 421 (unknown) (no date) (unknown) [facility]) Result panel 422 (unknown) (no date) (unknown) [facility]) Result panel 423 (unknown) (no date) (unknown) [facility]) Result panel 424 (unknown) (no date) (unknown) [facility]) Result panel 425 (unknown) (no date) (unknown) [facility]) Result panel 426 (unknown) (no date) (unknown) [facility]) Result panel 427 (unknown) (no date) (unknown[facility]) Result panel 428 (unknown) (no date) (unknown) [facility]) Result panel 429 (unknown) (no date) (unknown) [facility]) Result panel 430 (unknown) (no date) (unknown) [facility]) Result panel 431 (unknown) (no date) (unknown) [facility]) Result panel 432 (unknown) (no date) (unknown) [facility]) Result panel 433 (unknown) (no date) (unknown) [facility]) Result panel 434 (unknown) (no date) (unknown) [facility]) Result panel 435 (unknown) (no date) (unknown) [facility]) Result panel 436 (unknown) (no date) (unknown) [facility]) Result panel 437 (unknown) (no date) (unknown) [facility]) Result panel 438 (unknown) (no date) (unknown) [facility] Result panel 439 (unknown) (no date) (unknown) [facility] unknown) Result panel 440 (unknown) (no date) (unknown) [facility]) Result panel 441 (unknown) (no date) (unknown) [facility] Result panel 442 (unknown) (no date) (unknown) [facility]) Result panel 443 (unknown) (no date) (unknown) [facility]) Result panel 444 (unknown) (no date) (unknown) [facility]) Result panel 445 (unknown) (no date) (unknown) [facility]) Result panel 446 (unknown) (no date) (unknown) [facility]) Result panel 447 (unknown) (no date) (unknown) [facility]) Result panel 448 (unknown) (no date) (unknown) [facility]) Result panel 449 (unknown) (no date) (unknown) [facility]) Result panel 450 (unknown) (no date) (unknown) [facility]) Result panel 451 (unknown) (no date) (unknown) [facility]) Result panel 452 (unknown) (no date) (unknown) [facility]) Result panel 453 (unknown) (no date) (unknown) [facility] Result panel 454 (unknown) (no date) (unknown) [facility]) Result panel 455 (unknown) (no date) (unknown) [facility]) Result panel 456 (unknown) (no date) (unknown) [facility]) Result panel 457 (unknown) (no date) (unknown) [facility]) Result panel 458 (unknown) (no date) (unknown) [facility]) Result panel 459 (unknown) (no date) (unknown) [facility]) Result panel 460 (unknown) (no date) (unknown) [facility]) Result panel 461 (unknown) (no date) (unknown[facility]) Result panel 462 (unknown) (no date) (unknown) [facility]) Result panel 463 (unknown) (no date) (unknown[facility] Result panel 464 (unknown) (no date) (unknown) [facility]) Result panel 465 (unknown) (no date) (unknown) [facility]) Result panel 466 (unknown) (no date) (unknown) [facility]) Result panel 467 (unknown) (no date) (unknown) [facility]) Result panel 468 (unknown) (no date) (unknown) [facility]) Result panel 469 (unknown) (no date) (unknown) [facility]) Result panel 470 (unknown) (no date) (unknown) [facility]) Result panel 471 (unknown) (no date) (unknown) [facility]) Result panel 472 (unknown) (no date) (unknown) [facility]) Result panel 473 (unknown) (no date) (unknown) [facility]) Result panel 474 (unknown) (no date) (unknown) [facility]) Result panel 475 (unknown) (no date) (unknown) [facility]) Result panel 476 (unknown) (no date) (unknown) [facility]) Result panel 477 (unknown) (no date) (unknown) [facility]) Result panel 478 (unknown) (no date) (unknown) [facility]) Result panel 479 (unknown) (no date) (unknown) [facility]) Result panel 480 (unknown) (no date) (unknown) [facility]) Result panel 481 (unknown) (no date) (unknown) [facility]) Result panel 482 (unknown) (no date) (unknown) [facility]) Result panel 483 (unknown) (no date) (unknown) [facility]) Result panel 484 (unknown) (no date) (unknown) [facility]) Result panel 485 (unknown) (no date) (unknown) [facility]) Result panel 486 (unknown) (no date) (unknown) [facility]) Result panel 487 (unknown) (no date) (unknown) [facility]) Result panel 488 (unknown) (no date) (unknown) [facility]) Result panel 489 (unknown) (no date) (unknown) [facility]) Result panel 490 (unknown) (no date) (unknown) [facility]) Result panel 491 (unknown) (no date) (unknown) [facility]) Result panel 492 (unknown) (no date) (unknown) [facility]) Result panel 493 (unknown) (no date) (unknown) [facility]) Result panel 494 (unknown) (no date) (unknown) [facility]) Result panel 495 (unknown) (no date) (unknown) [facility]) Result panel 496 (unknown) (no date) (unknown) [facility]) Result panel 497 (unknown) (no date) (unknown) [facility]) Result panel 498 (unknown) (no date) (unknown) [facility]) Result panel 499 (unknown) (no date) (unknown) [facility]) Result panel 500 (unknown) (no date) (unknown) [facility] Result panel 501 (unknown) (no date) (unknown) [facility]) Result panel 502 (unknown) (no date) (unknown) [facility]) Result panel 503 (unknown) (no date) (unknown) [facility]) Result panel 504 (unknown) (no date) (unknown) [facility]) Result panel 505 (unknown) (no date) (unknown) [facility]) Result panel 506 (unknown) (no date) (unknown) [facility]) Result panel 507 (unknown) (no date) (unknown) [facility]) Result panel 508 (unknown) (no date) (unknown) [facility]) Result panel 509 (unknown) (no date) (unknown) [facility]) Result panel 510 (unknown) (no date) (unknown) [facility]) Result panel 511 (unknown) (no date) (unknown) [facility]) Result panel 512 (unknown) (no date) (unknown) [facility]) Result panel 513 (unknown) (no date) (unknown) [facility]) Result panel 514 (unknown) (no date) (unknown) [facility]) Result panel 515 (unknown) (no date) (unknown) [facility]) Result panel 516 (unknown) (no date) (unknown) [facility]) Result panel 517 (unknown) (no date) (unknown) [facility]) Result panel 518 (unknown) (no date) (unknown) [facility]) Result panel 519 (unknown) (no date) (unknown) [facility]) Result panel 520 (unknown) (no date) (unknown) [facility]) Result panel 521 (unknown) (no date) (unknown) [facility]) Result panel 522 (unknown) (no date) (unknown) [facility]) Result panel 523 (unknown) (no date) (unknown) [facility]) Result panel 524 (unknown) (no date) (unknown) [facility]) Result panel 525 (unknown) (no date) (unknown) [facility]) Result panel 526 (unknown) (no date) (unknown) [facility]) Result panel 527 (unknown) (no date) (unknown) [facility]) Result panel 528 (unknown) (no date) (unknown) [facility]) Result panel 529 (unknown) (no date) (unknown) [facility]) Result panel 530 (unknown) (no date) (unknown) [facility]) Result panel 531 (unknown) (no date) (unknown) [facility]) Result panel 532 (unknown) (no date) (unknown) [facility]) Result panel 533 (unknown) (no date) (unknown) [facility]) Result panel 534 (unknown) (no date) (unknown) [facility]) Result panel 535 (unknown) (no date) (unknown) [facility]) Result panel 536 (unknown) (no date) (unknown) [facility]) Result panel 537 (unknown) (no date) (unknown) [facility]) Result panel 538 (unknown) (no date) (unknown) [facility]) Result panel 539 (unknown) (no date) (unknown) [facility]) Result panel 540 (unknown) (no date) (unknown) [facility]) Result panel 541 (unknown) (no date) (unknown) [facility]) Result panel 542 (unknown) (no date) (unknown) [facility]) Result panel 543 (unknown) (no date) (unknown) [facility]) Result panel 544 (unknown) (no date) (unknown) [facility]) Result panel 545 (unknown) (no date) (unknown) [facility]) Result panel 546 (unknown) (no date) (unknown) [facility]) Result panel 547 (unknown) (no date) (unknown) [facility]) Result panel 548 (unknown) (no date) (unknown) [facility]) Result panel 549 (unknown) (no date) (unknown) [facility]) Result panel 550 (unknown) (no date) (unknown) [facility]) Result panel 551 (unknown) (no date) (unknown) [facility]) Result panel 552 (unknown) (no date) (unknown) [facility]) Result panel 553 (unknown) (no date) (unknown) [facility]) Result panel 554 (unknown) (no date) (unknown) [facility]) Result panel 555 (unknown) (no date) (unknown) [facility]) Result panel 556 (unknown) (no date) (unknown) [facility]) Result panel 557 (unknown) (no date) (unknown) [facility]) Result panel 558 (unknown) (no date) (unknown) [facility]) Result panel 559 (unknown) (no date) (unknown) [facility]) Result panel 560 (unknown) (no date) (unknown) [facility]) Result panel 561 (unknown) (no date) (unknown) [facility]) Result panel 562 (unknown) (no date) (unknown) [facility]) Result panel 563 (unknown) (no date) (unknown) [facility]) Result panel 564 (unknown) (no date) (unknown) [facility]) Result panel 565 (unknown) (no date) (unknown) [facility]) Result panel 566 (unknown) (no date) (unknown) [facility]) Result panel 567 (unknown) (no date) (unknown) [facility]) Result panel 568 (unknown) (no date) (unknown) [facility]) Result panel 569 (unknown) (no date) (unknown) [facility]) Result panel 570 (unknown) (no date) (unknown) [facility]) Result panel 571 (unknown) (no date) (unknown) [facility]) Result panel 572 (unknown) (no date) (unknown) [facility]) Result panel 573 (unknown) (no date) (unknown) [facility]) Result panel 574 (unknown) (no date) (unknown) [facility]) Result panel 575 (unknown) (no date) (unknown) [facility]) Result panel 576 (unknown) (no date) (unknown) [facility]) Result panel 577 (unknown) (no date) (unknown) [facility]) Result panel 578 (unknown) (no date) (unknown) [facility]) Result panel 579 (unknown) (no date) (unknown) [facility]) Result panel 580 (unknown) (no date) (unknown) [facility]) Result panel 581 (unknown) (no date) (unknown) [facility]) Result panel 582 (unknown) (no date) (unknown) [facility]) Result panel 583 (unknown) (no date) (unknown) [facility]) Result panel 584 (unknown) (no date) (unknown) [facility]) Result panel 585 (unknown) (no date) (unknown) [facility]) Result panel 586 (unknown) (no date) (unknown) [facility]) Result panel 587 (unknown) (no date) (unknown) [facility]) Result panel 588 (unknown) (no date) (unknown) [facility]) Result panel 589 (unknown) (no date) (unknown) [facility]) Result panel 590 (unknown) (no date) (unknown) [facility]) Result panel 591 (unknown) (no date) (unknown) [facility]) Result panel 592 (unknown) (no date) (unknown) [facility]) Result panel 593 (unknown) (no date) (unknown) [facility]) Result panel 594 (unknown) (no date) (unknown) [facility]) Result panel 595 (unknown) (no date) (unknown) [facility]) Result panel 596 (unknown) (no date) (unknown) [facility]) Result panel 597 (unknown) (no date) (unknown) [facility]) Result panel 598 (unknown) (no date) (unknown) [facility]) Result panel 599 (unknown) (no date) (unknown) [facility]) Result panel 600 (unknown) (no date) (unknown) [facility]) Result panel 601 (unknown) (no date) (unknown) [facility]) Result panel 602 (unknown) (no date) (unknown) [facility]) Result panel 603 (unknown) (no date) (unknown) [facility]) Result panel 604 (unknown) (no date) (unknown) [facility]) Result panel 605 (unknown) (no date) (unknown) [facility]) Result panel 606 (unknown) (no date) (unknown) [facility]) Result panel 607 (unknown) (no date) (unknown) [facility]) Result panel 608 (unknown) (no date) (unknown) [facility]) Result panel 609 (unknown) (no date) (unknown) [facility]) Result panel 610 (unknown) (no date) (unknown) [facility]) Result panel 611 (unknown) (no date) (unknown) [facility]) Result panel 612 (unknown) (no date) (unknown) [facility]) Result panel 613 (unknown) (no date) (unknown) [facility]) Result panel 614 (unknown) (no date) (unknown) [facility]) Result panel 615 (unknown) (no date) (unknown) [facility]) Result panel 616 (unknown) (no date) (unknown) [facility]) Result panel 617 (unknown) (no date) (unknown) [facility]) Result panel 618 (unknown) (no date) (unknown) [facility]) Result panel 619 (unknown) (no date) (unknown) [facility]) Result panel 620 (unknown) (no date) (unknown) [facility]) Result panel 621 (unknown) (no date) (unknown) [facility]) Result panel 622 (unknown) (no date) (unknown) [facility]) Result panel 623 (unknown) (no date) (unknown) [facility]) Result panel 624 (unknown) (no date) (unknown) [facility]) Result panel 625 (unknown) (no date) (unknown) [facility]) Result panel 626 (unknown) (no date) (unknown) [facility]) Result panel 627 (unknown) (no date) (unknown) [facility]) Result panel 628 (unknown) (no date) (unknown) [facility]) Result panel 629 (unknown) (no date) (unknown) [facility]) Result panel 630 (unknown) (no date) (unknown) [facility]) Result panel 631 (unknown) (no date) (unknown) [facility]) Result panel 632 (unknown) (no date) (unknown) [facility]) Result panel 633 (unknown) (no date) (unknown) [facility]) Result panel 634 (unknown) (no date) (unknown) [facility]) Result panel 635 (unknown) (no date) (unknown) [facility]) Result panel 636 (unknown) (no date) (unknown) [facility]) Result panel 637 (unknown) (no date) (unknown) [facility]) Result panel 638 (unknown) (no date) (unknown) [facility]) Result panel 639 (unknown) (no date) (unknown) [facility]) Result panel 640 (unknown) (no date) (unknown) [facility]) Result panel 641 (unknown) (no date) (unknown) [facility]) Result panel 642 (unknown) (no date) (unknown) [facility]) Result panel 643 (unknown) (no date) (unknown) [facility]) Result panel 644 (unknown) (no date) (unknown) [facility]) Result panel 645 (unknown) (no date) (unknown) [facility]) Result panel 646 (unknown) (no date) (unknown) [facility]) Result panel 647 (unknown) (no date) (unknown) [facility]) Result panel 648 (unknown) (no date) (unknown) [facility]) Result panel 649 (unknown) (no date) (unknown) [facility]) Result panel 650 (unknown) (no date) (unknown) [facility]) Result panel 651 (unknown) (no date) (unknown) [facility]) Result panel 652 (unknown) (no date) (unknown) [facility]) Result panel 653 (unknown) (no date) (unknown) [facility]) Result panel 654 (unknown) (no date) (unknown) [facility]) Result panel 655 (unknown) (no date) (unknown) [facility]) Result panel 656 (unknown) (no date) (unknown) [facility]) Result panel 657 (unknown) (no date) (unknown) [facility]) Result panel 658 (unknown) (no date) (unknown) [facility]) Result panel 659 (unknown) (no date) (unknown) [facility]) Result panel 660 (unknown) (no date) (unknown) [facility]) Result panel 661 (unknown) (no date) (unknown) [facility]) Result panel 662 (unknown) (no date) (unknown) [facility]) Result panel 663 (unknown) (no date) (unknown) [facility]) Result panel 664 (unknown) (no date) (unknown) [facility]) Result panel 665 (unknown) (no date) (unknown) [facility]) Result panel 666 (unknown) (no date) (unknown) [facility]) Result panel 667 (unknown) (no date) (unknown) [facility]) Result panel 668 (unknown) (no date) (unknown) [facility]) Result panel 669 (unknown) (no date) (unknown) [facility]) Result panel 670 (unknown) (no date) (unknown) [facility]) Result panel 671 (unknown) (no date) (unknown) [facility]) Result panel 672 (unknown) (no date) (unknown) [facility]) Result panel 673 (unknown) (no date) (unknown) [facility]) Result panel 674 (unknown) (no date) (unknown) [facility]) Result panel 675 (unknown) (no date) (unknown) [facility]) Result panel 676 (unknown) (no date) (unknown) [facility]) Result panel 677 (unknown) (no date) (unknown) [facility] [facility]) Result panel 678 (unknown) (no date) (unknown) [facility]) Result panel 679 (unknown) (no date) (unknown) [facility] Result panel 680 (unknown) (no date) (unknown[facility]) Result panel 681 (unknown) (no date) (unknown) [facility]) Result panel 682 (unknown) (no date) (unknown) [facility] Result panel 683 (unknown) (no date) (unknown) [facility]) Result panel 684 (unknown) (no date) (unknown) [facility]) Result panel 685 (unknown) (no date) (unknown) [facility]) Result panel 686 (unknown) (no date) (unknown) [facility]) Result panel 687 (unknown) (no date) (unknown) [facility]) Result panel 688 (unknown) (no date) (unknown) [facility]) Result panel 689 (unknown) (no date) (unknown) [facility]) Result panel 690 (unknown) (no date) (unknown) [facility]) Result panel 691 (unknown) (no date) (unknown) [facility]) Result panel 692 (unknown) (no date) (unknown[facility]) Result panel 693 (unknown) (no date) (unknown) [facility]) Result panel 694 (unknown) (no date) (unknown) [facility]) Result panel 695 (unknown) (no date) (unknown) [facility]) Result panel 696 (unknown) (no date) (unknown) [facility] Result panel 697 (unknown) (no date) (unknown) [facility]) Result panel 698 (unknown) (no date) (unknown) [facility]) Result panel 699 (unknown) (no date) (unknown[facility] Result panel 700 (unknown) (no date) (unknown) [facility] Result panel 701 (unknown) (no date) (unknown) [facility]) Result panel 702 (unknown) (no date) (unknown) [facility]) Result panel 703 (unknown) (no date) (unknown) [facility]) Result panel 704 (unknown) (no date) (unknown) [facility]) Result panel 705 (unknown) (no date) (unknown) [facility] Result panel 706 (unknown) (no date) (unknown) [facility]) Result panel 707 (unknown) (no date) (unknown) [facility]) Result panel 708 (unknown) (no date) (unknown) [facility]) Result panel 709 (unknown) (no date) (unknown) [facility]) Result panel 710 (unknown) (no date) (unknown) [facility]) Result panel 711 (unknown) (no date) (unknown) [facility]) Result panel 712 (unknown) (no date) (unknown) [facility]) Result panel 713 (unknown) (no date) (unknown) [facility]) Result panel 714 (unknown) (no date) (unknown) [facility]) Result panel 715 (unknown) (no date) (unknown) [facility]) Result panel 716 (unknown) (no date) (unknown) [facility]) Result panel 717 (unknown) (no date) (unknown) [facility]) Result panel 718 (unknown) (no date) (unknown) [facility]) Result panel 719 (unknown) (no date) (unknown) [facility]) Result panel 720 (unknown) (no date) (unknown) [facility]) Result panel 721 (unknown) (no date) (unknown) [facility]) Result panel 722 (unknown) (no date) (unknown) [facility]) Result panel 723 (unknown) (no date) (unknown) [facility]) Result panel 724 (unknown) (no date) (unknown) [facility]) Result panel 725 (unknown) (no date) (unknown) [facility]) Result panel 726 (unknown) (no date) (unknown) [facility]) Result panel 727 (unknown) (no date) (unknown) [facility]) Result panel 728 (unknown) (no date) (unknown) [facility]) Result panel 729 (unknown) (no date) (unknown) [facility]) Result panel 730 (unknown) (no date) (unknown) [facility]) Result panel 731 (unknown) (no date) (unknown) [facility]) Result panel 732 (unknown) (no date) (unknown) [facility]) Result panel 733 (unknown) (no date) (unknown) [facility]) Result panel 734 (unknown) (no date) (unknown) [facility]) Result panel 735 (unknown) (no date) (unknown) [facility]) Result panel 736 (unknown) (no date) (unknown) [facility]) Result panel 737 (unknown) (no date) (unknown) [facility]) Result panel 738 (unknown) (no date) (unknown) [facility]) Result panel 739 (unknown) (no date) (unknown) [facility]) Result panel 740 (unknown) (no date) (unknown) [facility]) Result panel 741 (unknown) (no date) (unknown) [facility]) Result panel 742 (unknown) (no date) (unknown) [facility]) Result panel 743 (unknown) (no date) (unknown) [facility]) Result panel 744 (unknown) (no date) (unknown) [facility]) Result panel 745 (unknown) (no date) (unknown) [facility]) Result panel 746 (unknown) (no date) (unknown) [facility]) Result panel 747 (unknown) (no date) (unknown) [facility]) Result panel 748 (unknown) (no date) (unknown) [facility]) Result panel 749 (unknown) (no date) (unknown) [facility]) Result panel 750 (unknown) (no date) (unknown) [facility]) Result panel 751 (unknown) (no date) (unknown) [facility]) Result panel 752 (unknown) (no date) (unknown) [facility]) Result panel 753 (unknown) (no date) (unknown) [facility]) Result panel 754 (unknown) (no date) (unknown) [facility]) Result panel 755 (unknown) (no date) (unknown) [facility]) Result panel 756 (unknown) (no date) (unknown) [facility]) Result panel 757 (unknown) (no date) (unknown) [facility]) Result panel 758 (unknown) (no date) (unknown) [facility]) Result panel 759 (unknown) (no date) (unknown) [facility]) Result panel 760 (unknown) (no date) (unknown) [facility]) Result panel 761 (unknown) (no date) (unknown) [facility]) Result panel 762 (unknown) (no date) (unknown) [facility]) Result panel 763 (unknown) (no date) (unknown) [facility]) Result panel 764 (unknown) (no date) (unknown) [facility]) Result panel 765 (unknown) (no date) (unknown) [facility]) Result panel 766 (unknown) (no date) (unknown) [facility]) Result panel 767 (unknown) (no date) (unknown) [facility]) Result panel 768 (unknown) (no date) (unknown) [facility]) Result panel 769 (unknown) (no date) (unknown) [facility]) Result panel 770 (unknown) (no date) (unknown) [facility]) Result panel 771 (unknown) (no date) (unknown) [facility]) Result panel 772 (unknown) (no date) (unknown) [facility]) Result panel 773 (unknown) (no date) (unknown) [facility]) Result panel 774 (unknown) (no date) (unknown) [facility]) Result panel 775 (unknown) (no date) (unknown) [facility]) Result panel 776 (unknown) (no date) (unknown) [facility]) Result panel 777 (unknown) (no date) (unknown) [facility]) Result panel 778 (unknown) (no date) (unknown) [facility]) Result panel 779 (unknown) (no date) (unknown) [facility]) Result panel 780 (unknown) (no date) (unknown) [facility]) Result panel 781 (unknown) (no date) (unknown) [facility]) Result panel 782 (unknown) (no date) (unknown) [facility]) Result panel 783 (unknown) (no date) (unknown) [facility]) Result panel 784 (unknown) (no date) (unknown) [facility]) Result panel 785 (unknown) (no date) (unknown) [facility]) Result panel 786 (unknown) (no date) (unknown) [facility]) Result panel 787 (unknown) (no date) (unknown) [facility]) Result panel 788 (unknown) (no date) (unknown) [facility]) Result panel 789 (unknown) (no date) (unknown) [facility]) Result panel 790 (unknown) (no date) (unknown) [facility]) Result panel 791 (unknown) (no date) (unknown) [facility]) Result panel 792 (unknown) (no date) (unknown) [facility]) Result panel 793 (unknown) (no date) (unknown) [facility]) Result panel 794 (unknown) (no date) (unknown) [facility]) Result panel 795 (unknown) (no date) (unknown) [facility]) Result panel 796 (unknown) (no date) (unknown) [facility]) Result panel 797 (unknown) (no date) (unknown) [facility]) Result panel 798 (unknown) (no date) (unknown) [facility]) Result panel 799 (unknown) (no date) (unknown) [facility]) Result panel 800 (unknown) (no date) (unknown) [facility]) Result panel 801 (unknown) (no date) (unknown) [facility]) Result panel 802 (unknown) (no date) (unknown) [facility]) Result panel 803 (unknown) (no date) (unknown) [facility]) Result panel 804 (unknown) (no date) (unknown) [facility]) Result panel 805 (unknown) (no date) (unknown) [facility]) Result panel 806 (unknown) (no date) (unknown) [facility]) Result panel 807 (unknown) (no date) (unknown) [facility]) Result panel 808 (unknown) (no date) (unknown) [facility]) Result panel 809 (unknown) (no date) (unknown) [facility]) Result panel 810 (unknown) (no date) (unknown) [facility]) Result panel 811 (unknown) (no date) (unknown) [facility]) Result panel 812 (unknown) (no date) (unknown) [facility]) Result panel 813 (unknown) (no date) (unknown) [facility]) Result panel 814 (unknown) (no date) (unknown) [facility]) Result panel 815 (unknown) (no date) (unknown) [facility]) Result panel 816 (unknown) (no date) (unknown) [facility]) Result panel 817 (unknown) (no date) (unknown) [facility]) Result panel 818 (unknown) (no date) (unknown) [facility]) Result panel 819 (unknown) (no date) (unknown) [facility]) Result panel 820 (unknown) (no date) (unknown) [facility]) Result panel 821 (unknown) (no date) (unknown) [facility]) Result panel 822 (unknown) (no date) (unknown) [facility]) Result panel 823 (unknown) (no date) (unknown) [facility]) Result panel 824 (unknown) (no date) (unknown) [facility]) Result panel 825 (unknown) (no date) (unknown) [facility]) Result panel 826 (unknown) (no date) (unknown) [facility]) Result panel 827 (unknown) (no date) (unknown) [facility]) Result panel 828 (unknown) (no date) (unknown) [facility]) Result panel 829 (unknown) (no date) (unknown) [facility]) Result panel 830 (unknown) (no date) (unknown) [facility]) Result panel 831 (unknown) (no date) (unknown) [facility]) Result panel 832 (unknown) (no date) (unknown) [facility]) Result panel 833 (unknown) (no date) (unknown) [facility]) Result panel 834 (unknown) (no date) (unknown) [facility]) Result panel 835 (unknown) (no date) (unknown) [facility]) Result panel 836 (unknown) (no date) (unknown) [facility]) Result panel 837 (unknown) (no date) (unknown) [facility]) Result panel 838 (unknown) (no date) (unknown) [facility]) Result panel 839 (unknown) (no date) (unknown) [facility]) Result panel 840 (unknown) (no date) (unknown) [facility]) Result panel 841 (unknown) (no date) (unknown) [facility]) Result panel 842 (unknown) (no date) (unknown) [facility]) Result panel 843 (unknown) (no date) (unknown) [facility]) Result panel 844 (unknown) (no date) (unknown) [facility]) Result panel 845 (unknown) (no date) (unknown) [facility]) Result panel 846 (unknown) (no date) (unknown) [facility]) Result panel 847 (unknown) (no date) (unknown) [facility]) Result panel 848 (unknown) (no date) (unknown) [facility]) Result panel 849 (unknown) (no date) (unknown) [facility]) Result panel 850 (unknown) (no date) (unknown) [facility]) Result panel 851 (unknown) (no date) (unknown) [facility]) Result panel 852 (unknown) (no date) (unknown) [facility]) Result panel 853 (unknown) (no date) (unknown) [facility]) Result panel 854 (unknown) (no date) (unknown) [facility]) Result panel 855 (unknown) (no date) (unknown) [facility]) Result panel 856 (unknown) (no date) (unknown) [facility]) Result panel 857 (unknown) (no date) (unknown) [facility]) Result panel 858 (unknown) (no date) (unknown) [facility]) Result panel 859 (unknown) (no date) (unknown) [facility]) Result panel 860 (unknown) (no date) (unknown) [facility]) Result panel 861 (unknown) (no date) (unknown) [facility]) Result panel 862 (unknown) (no date) (unknown) [facility]) Result panel 863 (unknown) (no date) (unknown) [facility]) Result panel 864 (unknown) (no date) (unknown) [facility]) Result panel 865 (unknown) (no date) (unknown) [facility]) Result panel 866 (unknown) (no date) (unknown) [facility]) Result panel 867 (unknown) (no date) (unknown) [facility]) Result panel 868 (unknown) (no date) (unknown) [facility]) Result panel 869 (unknown) (no date) (unknown) [facility]) Result panel 870 (unknown) (no date) (unknown) [facility]) Result panel 871 (unknown) (no date) (unknown) [facility]) Result panel 872 (unknown) (no date) (unknown) [facility]) Result panel 873 (unknown) (no date) (unknown) [facility]) Result panel 874 (unknown) (no date) (unknown) [facility]) Result panel 875 (unknown) (no date) (unknown) [facility]) Result panel 876 (unknown) (no date) (unknown) [facility]) Result panel 877 (unknown) (no date) (unknown) [facility]) Result panel 878 (unknown) (no date) (unknown) [facility]) Result panel 879 (unknown) (no date) (unknown) [facility]) Result panel 880 (unknown) (no date) (unknown) [facility]) Result panel 881 (unknown) (no date) (unknown) [facility]) Result panel 882 (unknown) (no date) (unknown) [facility]) Result panel 883 (unknown) (no date) (unknown) [facility]) Result panel 884 (unknown) (no date) (unknown) [facility]) Result panel 885 (unknown) (no date) (unknown) [facility]) Result panel 886 (unknown) (no date) (unknown) [facility]) Result panel 887 (unknown) (no date) (unknown) [facility]) Result panel 888 (unknown) (no date) (unknown) [facility]) Result panel 889 (unknown) (no date) (unknown) [facility]) Result panel 890 (unknown) (no date) (unknown) [facility]) Result panel 891 (unknown) (no date) (unknown) [facility]) Result panel 892 (unknown) (no date) (unknown) [facility]) Result panel 893 (unknown) (no date) (unknown) [facility]) Result panel 894 (unknown) (no date) (unknown) [facility]) Result panel 895 (unknown) (no date) (unknown) [facility]) Result panel 896 (unknown) (no date) (unknown) [facility]) Result panel 897 (unknown) (no date) (unknown) [facility]) Result panel 898 (unknown) (no date) (unknown) [facility]) Result panel 899 (unknown) (no date) (unknown) [facility]) Result panel 900 (unknown) (no date) (unknown) [facility]) Result panel 901 (unknown) (no date) (unknown) [facility]) Result panel 902 (unknown) (no date) (unknown) [facility]) Result panel 903 (unknown) (no date) (unknown) [facility]) Result panel 904 (unknown) (no date) (unknown) [facility]) Result panel 905 (unknown) (no date) (unknown) [facility]) Result panel 906 (unknown) (no date) (unknown) [facility]) Result panel 907 (unknown) (no date) (unknown) [facility]) Result panel 908 (unknown) (no date) (unknown) [facility]) Result panel 909 (unknown) (no date) (unknown) [facility]) Result panel 910 (unknown) (no date) (unknown) [facility]) Result panel 911 (unknown) (no date) (unknown) [facility]) Result panel 912 (unknown) (no date) (unknown) [facility]) Result panel 913 (unknown) (no date) (unknown) [facility]) Result panel 914 (unknown) (no date) (unknown) [facility] Result panel 915 (unknown) (no date) (unknown) [facility]) Result panel 916 (unknown) (no date) (unknown) [facility] Result panel 917 (unknown) (no date) (unknown) [facility] Result panel 918 (unknown) (no date) (unknown) [facility]) Result panel 919 (unknown) (no date) (unknown) [facility] Result panel 920 (unknown) (no date) (unknown) [facility]) Result panel 921 (unknown) (no date) (unknown) [facility]) Result panel 922 (unknown) (no date) (unknown) [facility] Result panel 923 (unknown) (no date) (unknown) [facility]) Result panel 924 (unknown) (no date) (unknown) [facility]) Result panel 925 (unknown) (no date) (unknown) [facility] Result panel 926 (unknown) (no date) (unknown) [facility]) Result panel 927 (unknown) (no date) (unknown[facility]) Result panel 928 (unknown) (no date) (unknown) [facility] Result panel 929 (unknown) (no date) (unknown) [facility]) Result panel 930 (unknown) (no date) (unknown) [facility] Result panel 931 (unknown) (no date) (unknown) [facility]) Result panel 932 (unknown) (no date) (unknown) [facility]) Result panel 933 (unknown) (no date) (unknown) [facility]) Result panel 934 (unknown) (no date) (unknown) [facility] Result panel 935 (unknown) (no date) (unknown[facility] Result panel 936 (unknown) (no date) (unknown[facility]) Result panel 937 (unknown) (no date) (unknown[facility] Result panel 938 (unknown) (no date) (unknown[facility] Result panel 939 (unknown) (no date) (unknown) [facility]) Result panel 940 (unknown) (no date) (unknown) [facility] Result panel 941 (unknown) (no date) (unknown) [facility]) Result panel 942 (unknown) (no date) (unknown) [facility]) Result panel 943 (unknown) (no date) (unknown) [facility] Result panel 944 (unknown) (no date) (unknown) [facility]) Result panel 945 (unknown) (no date) (unknown) [facility]) Result panel 946 (unknown) (no date) (unknown) [facility]) Result panel 947 (unknown) (no date) (unknown) [facility]) Result panel 948 (unknown) (no date) (unknown[facility]) Result panel 949 (unknown) (no date) (unknown) [facility]) Result panel 950 (unknown) (no date) (unknown) [facility]) Result panel 951 (unknown) (no date) (unknown) [facility]) Result panel 952 (unknown) (no date) (unknown) [facility]) Result panel 953 (unknown) (no date) (unknown) [facility]) Result panel 954 (unknown) (no date) (unknown) [facility]) Result panel 955 (unknown) (no date) (unknown) [facility]) Result panel 956 (unknown) (no date) (unknown) [facility]) Result panel 957 (unknown) (no date) (unknown) [facility]) Result panel 958 (unknown) (no date) (unknown) [facility]) Result panel 959 (unknown) (no date) (unknown) [facility]) Result panel 960 (unknown) (no date) (unknown) [facility]) Result panel 961 (unknown) (no date) (unknown) [facility]) Result panel 962 (unknown) (no date) (unknown) [facility]) Result panel 963 (unknown) (no date) (unknown) [facility]) Result panel 964 (unknown) (no date) (unknown) [facility]) Result panel 965 (unknown) (no date) (unknown) [facility]) Result panel 966 (unknown) (no date) (unknown) [facility]) Result panel 967 (unknown) (no date) (unknown) [facility]) Result panel 968 (unknown) (no date) (unknown) [facility]) Result panel 969 (unknown) (no date) (unknown) [facility]) Result panel 970 (unknown) (no date) (unknown) [facility]) Result panel 971 (unknown) (no date) (unknown) [facility]) Result panel 972 (unknown) (no date) (unknown) [facility]) Result panel 973 (unknown) (no date) (unknown) [facility]) Result panel 974 (unknown) (no date) (unknown) [facility]) Result panel 975 (unknown) (no date) (unknown) [facility]) Result panel 976 (unknown) (no date) (unknown) [facility]) Result panel 977 (unknown) (no date) (unknown) [facility]) Result panel 978 (unknown) (no date) (unknown) [facility]) Result panel 979 (unknown) (no date) (unknown) [facility]) Result panel 980 (unknown) (no date) (unknown) [facility]) Result panel 981 (unknown) (no date) (unknown) [facility]) Result panel 982 (unknown) (no date) (unknown) [facility]) Result panel 983 (unknown) (no date) (unknown) [facility]) Result panel 984 (unknown) (no date) (unknown) [facility]) Result panel 985 (unknown) (no date) (unknown) [facility]) Result panel 986 (unknown) (no date) (unknown) [facility]) Result panel 987 (unknown) (no date) (unknown) [facility]) Result panel 988 (unknown) (no date) (unknown) [facility]) Result panel 989 (unknown) (no date) (unknown) [facility]) Result panel 990 (unknown) (no date) (unknown) [facility]) Result panel 991 (unknown) (no date) (unknown) [facility]) Result panel 992 (unknown) (no date) (unknown) [facility]) Result panel 993 (unknown) (no date) (unknown) [facility]) Result panel 994 (unknown) (no date) (unknown) [facility]) Result panel 995 (unknown) (no date) (unknown) [facility]) Result panel 996 (unknown) (no date) (unknown) [facility]) Result panel 997 (unknown) (no date) (unknown) [facility]) Result panel 998 (unknown) (no date) (unknown) [facility]) Result panel 999 (unknown) (no date) (unknown) [facility]) Result panel 1000 (unknown) (no date) (unknown) [facility]) Result panel 1001 (unknown) (no date) (unknown) [facility]) Result panel 1002 (unknown) (no date) (unknown) [facility]) Result panel 1003 (unknown) (no date) (unknown) [facility]) Result panel 1004 (unknown) (no date) (unknown) [facility]) Result panel 1005 (unknown) (no date) (unknown) [facility]) Result panel 1006 (unknown) (no date) (unknown) [facility]) Result panel 1007 (unknown) (no date) (unknown) [facility]) Result panel 1008 (unknown) (no date) (unknown) [facility]) Result panel 1009 (unknown) (no date) (unknown) [facility]) Result panel 1010 (unknown) (no date) (unknown) [facility]) Result panel 1011 (unknown) (no date) (unknown) [facility]) Result panel 1012 (unknown) (no date) (unknown) [facility]) Result panel 1013 (unknown) (no date) (unknown) [facility]) Result panel 1014 (unknown) (no date) (unknown) [facility]) Result panel 1015 (unknown) (no date) (unknown) [facility]) Result panel 1016 (unknown) (no date) (unknown) [facility]) Result panel 1017 (unknown) (no date) (unknown) [facility]) Result panel 1018 (unknown) (no date) (unknown) [facility]) Result panel 1019 (unknown) (no date) (unknown) [facility]) Result panel 1020 (unknown) (no date) (unknown) [facility]) Result panel 1021 (unknown) (no date) (unknown) [facility]) Result panel 1022 (unknown) (no date) (unknown) [facility]) Result panel 1023 (unknown) (no date) (unknown) [facility]) Result panel 1024 (unknown) (no date) (unknown) [facility]) Result panel 1025 (unknown) (no date) (unknown) [facility]) Result panel 1026 (unknown) (no date) (unknown) [facility]) Result panel 1027 (unknown) (no date) (unknown) [facility]) Result panel 1028 (unknown) (no date) (unknown) [facility]) Result panel 1029 (unknown) (no date) (unknown) [facility]) Result panel 1030 (unknown) (no date) (unknown) [facility]) Result panel 1031 (unknown) (no date) (unknown) [facility]) Result panel 1032 (unknown) (no date) (unknown) [facility]) Result panel 1033 (unknown) (no date) (unknown) [facility]) Result panel 1034 (unknown) (no date) (unknown) [facility]) Result panel 1035 (unknown) (no date) (unknown) [facility]) Result panel 1036 (unknown) (no date) (unknown) [facility]) Result panel 1037 (unknown) (no date) (unknown) [facility]) Result panel 1038 (unknown) (no date) (unknown) [facility]) Result panel 1039 (unknown) (no date) (unknown) [facility]) Result panel 1040 (unknown) (no date) (unknown) [facility]) Result panel 1041 (unknown) (no date) (unknown) [facility]) Result panel 1042 (unknown) (no date) (unknown) [facility]) Result panel 1043 (unknown) (no date) (unknown) [facility]) Result panel 1044 (unknown) (no date) (unknown) [facility]) Result panel 1045 (unknown) (no date) (unknown) [facility]) Result panel 1046 (unknown) (no date) (unknown) [facility]) Result panel 1047 (unknown) (no date) (unknown) [facility]) Result panel 1048 (unknown) (no date) (unknown) [facility]) Result panel 1049 (unknown) (no date) (unknown) [facility]) Result panel 1050 (unknown) (no date) (unknown) [facility]) Result panel 1051 (unknown) (no date) (unknown) [facility]) Result panel 1052 (unknown) (no date) (unknown) [facility]) Result panel 1053 (unknown) (no date) (unknown) [facility]) Result panel 1054 (unknown) (no date) (unknown) [facility]) Result panel 1055 (unknown) (no date) (unknown) [facility]) Result panel 1056 (unknown) (no date) (unknown) [facility]) Result panel 1057 (unknown) (no date) (unknown) [facility]) Result panel 1058 (unknown) (no date) (unknown) [facility]) Result panel 1059 (unknown) (no date) (unknown) [facility]) Result panel 1060 (unknown) (no date) (unknown) [facility]) Result panel 1061 (unknown) (no date) (unknown) [facility]) Result panel 1062 (unknown) (no date) (unknown) [facility]) Result panel 1063 (unknown) (no date) (unknown) [facility]) Result panel 1064 (unknown) (no date) (unknown) [facility]) Result panel 1065 (unknown) (no date) (unknown) [facility]) Result panel 1066 (unknown) (no date) (unknown) [facility]) Result panel 1067 (unknown) (no date) (unknown) [facility]) Result panel 1068 (unknown) (no date) (unknown) [facility]) Result panel 1069 (unknown) (no date) (unknown) [facility]) Result panel 1070 (unknown) (no date) (unknown) [facility]) Result panel 1071 (unknown) (no date) (unknown) [facility]) Result panel 1072 (unknown) (no date) (unknown) [facility]) Result panel 1073 (unknown) (no date) (unknown) [facility]) Result panel 1074 (unknown) (no date) (unknown) [facility]) Result panel 1075 (unknown) (no date) (unknown) [facility]) Result panel 1076 (unknown) (no date) (unknown) [facility]) Result panel 1077 (unknown) (no date) (unknown) [facility]) Result panel 1078 (unknown) (no date) (unknown) [facility]) Result panel 1079 (unknown) (no date) (unknown) [facility]) Result panel 1080 (unknown) (no date) (unknown) [facility]) Result panel 1081 (unknown) (no date) (unknown) [facility]) Result panel 1082 (unknown) (no date) (unknown) [facility]) Result panel 1083 (unknown) (no date) (unknown) [facility]) Result panel 1084 (unknown) (no date) (unknown) [facility]) Result panel 1085 (unknown) (no date) (unknown) [facility]) Result panel 1086 (unknown) (no date) (unknown) [facility]) Result panel 1087 (unknown) (no date) (unknown) [facility]) Result panel 1088 (unknown) (no date) (unknown) [facility]) Result panel 1089 (unknown) (no date) (unknown) [facility]) Result panel 1090 (unknown) (no date) (unknown) [facility]) Result panel 1091 (unknown) (no date) (unknown) [facility]) Result panel 1092 (unknown) (no date) (unknown) [facility]) Result panel 1093 (unknown) (no date) (unknown) [facility]) Result panel 1094 (unknown) (no date) (unknown) [facility]) Result panel 1095 (unknown) (no date) (unknown) [facility]) Result panel 1096 (unknown) (no date) (unknown) [facility]) Result panel 1097 (unknown) (no date) (unknown) [facility]) Result panel 1098 (unknown) (no date) (unknown) [facility]) Result panel 1099 (unknown) (no date) (unknown) [facility]) Result panel 1100 (unknown) (no date) (unknown) [facility]) Result panel 1101 (unknown) (no date) (unknown) [facility]) Result panel 1102 (unknown) (no date) (unknown) [facility]) Result panel 1103 (unknown) (no date) (unknown) [facility]) Result panel 1104 (unknown) (no date) (unknown) [facility]) Result panel 1105 (unknown) (no date) (unknown) [facility]) Result panel 1106 (unknown) (no date) (unknown) [facility]) Result panel 1107 (unknown) (no date) (unknown) [facility]) Result panel 1108 (unknown) (no date) (unknown) [facility]) Result panel 1109 (unknown) (no date) (unknown) [facility]) Result panel 1110 (unknown) (no date) (unknown) [facility]) Result panel 1111 (unknown) (no date) (unknown) [facility]) Result panel 1112 (unknown) (no date) (unknown) [facility]) Result panel 1113 (unknown) (no date) (unknown) [facility]) Result panel 1114 (unknown) (no date) (unknown) [facility]) Result panel 1115 (unknown) (no date) (unknown) [facility]) Result panel 1116 (unknown) (no date) (unknown) [facility]) Result panel 1117 (unknown) (no date) (unknown) [facility]) Result panel 1118 (unknown) (no date) (unknown) [facility]) Result panel 1119 (unknown) (no date) (unknown) [facility]) Result panel 1120 (unknown) (no date) (unknown) [facility]) Result panel 1121 (unknown) (no date) (unknown) [facility]) Result panel 1122 (unknown) (no date) (unknown) [facility]) Result panel 1123 (unknown) (no date) (unknown) [facility]) Result panel 1124 (unknown) (no date) (unknown) [facility]) Result panel 1125 (unknown) (no date) (unknown) [facility]) Result panel 1126 (unknown) (no date) (unknown) [facility]) Result panel 1127 (unknown) (no date) (unknown) [facility]) Result panel 1128 (unknown) (no date) (unknown) [facility]) Result panel 1129 (unknown) (no date) (unknown) [facility]) Result panel 1130 (unknown) (no date) (unknown) [facility]) Result panel 1131 (unknown) (no date) (unknown) [facility]) Result panel 1132 (unknown) (no date) (unknown) [facility]) Result panel 1133 (unknown) (no date) (unknown) [facility]) Result panel 1134 (unknown) (no date) (unknown) [facility]) Result panel 1135 (unknown) (no date) (unknown) [facility]) Result panel 1136 (unknown) (no date) (unknown) [facility]) Result panel 1137 (unknown) (no date) (unknown) [facility]) Result panel 1138 (unknown) (no date) (unknown) [facility]) Result panel 1139 (unknown) (no date) (unknown) [facility]) Result panel 1140 (unknown) (no date) (unknown) [facility]) Result panel 1141 (unknown) (no date) (unknown) [facility]) Result panel 1142 (unknown) (no date) (unknown) [facility]) Result panel 1143 (unknown) (no date) (unknown) [facility]) Result panel 1144 (unknown) (no date) (unknown) [facility]) Result panel 1145 (unknown) (no date) (unknown) [facility]) Result panel 1146 (unknown) (no date) (unknown) [facility]) Result panel 1147 (unknown) (no date) (unknown) [facility]) Result panel 1148 (unknown) (no date) (unknown) [facility]) Result panel 1149 (unknown) (no date) (unknown) [facility]) Result panel 1150 (unknown) (no date) (unknown) [facility] Result panel 1151 (unknown) (no date) (unknown) [facility]) Result panel 1152 (unknown) (no date) (unknown) [facility] Result panel 1153 (unknown) (no date) (unknown) [facility]) Result panel 1154 (unknown) (no date) (unknown) [facility]) Result panel 1155 (unknown) (no date) (unknown) [facility]) Result panel 1156 (unknown) (no date) (unknown) [facility] Result panel 1157 (unknown) (no date) (unknown) [facility]) Result panel 1158 (unknown) (no date) (unknown) [facility] Result panel 1159 (unknown) (no date) (unknown) [facility]) Result panel 1160 (unknown) (no date) (unknown) [facility] Result panel 1161 (unknown) (no date) (unknown) [facility]) Result panel 1162 (unknown) (no date) (unknown) [facility]) Result panel 1163 (unknown) (no date) (unknown) [facility]) Result panel 1164 (unknown) (no date) (unknown) [facility]) Result panel 1165 (unknown) (no date) (unknown[facility] Result panel 1166 (unknown) (no date) (unknown) [facility]) Result panel 1167 (unknown) (no date) (unknown) [facility] Result panel 1168 (unknown) (no date) (unknown[facility]) Result panel 1169 (unknown) (no date) (unknown) [facility]) Result panel 1170 (unknown) (no date) (unknown) [facility] Result panel 1171 (unknown) (no date) (unknown[facility]) Result panel 1172 (unknown) (no date) (unknown) [facility] Result panel 1173 (unknown) (no date) (unknown[facility] Result panel 1174 (unknown) (no date) (unknown) [facility]) Result panel 1175 (unknown) (no date) (unknown) [facility]) Result panel 1176 (unknown) (no date) (unknown) [facility]) Result panel 1177 (unknown) (no date) (unknown) [facility]) Result panel 1178 (unknown) (no date) (unknown) [facility]) Result panel 1179 (unknown) (no date) (unknown) [facility]) Result panel 1180 (unknown) (no date) (unknown) [facility]) Result panel 1181 (unknown) (no date) (unknown) [facility]) Result panel 1182 (unknown) (no date) (unknown) [facility]) Result panel 1183 (unknown) (no date) (unknown) [facility]) Result panel 1184 (unknown) (no date) (unknown) [facility]) Result panel 1185 (unknown) (no date) (unknown) [facility]) Result panel 1186 (unknown) (no date) (unknown) [facility]) Result panel 1187 (unknown) (no date) (unknown) [facility]) Result panel 1188 (unknown) (no date) (unknown) [facility]) Result panel 1189 (unknown) (no date) (unknown) [facility]) Result panel 1190 (unknown) (no date) (unknown) [facility] Result panel 1191 (unknown) (no date) (unknown) [facility]) Result panel 1192 (unknown) (no date) (unknown) [facility]) Result panel 1193 (unknown) (no date) (unknown) [facility]) Result panel 1194 (unknown) (no date) (unknown) [facility]) Result panel 1195 (unknown) (no date) (unknown) [facility]) Result panel 1196 (unknown) (no date) (unknown) [facility]) Result panel 1197 (unknown) (no date) (unknown) [facility]) Result panel 1198 (unknown) (no date) (unknown) [facility]) Result panel 1199 (unknown) (no date) (unknown) [facility]) Result panel 1200 (unknown) (no date) (unknown) [facility]) Result panel 1201 (unknown) (no date) (unknown) [facility]) Result panel 1202 (unknown) (no date) (unknown[facility]) Result panel 1203 (unknown) (no date) (unknown) [facility]) Result panel 1204 (unknown) (no date) (unknown) [facility]) Result panel 1205 (unknown) (no date) (unknown) [facility]) Result panel 1206 (unknown) (no date) (unknown) [facility]) Result panel 1207 (unknown) (no date) (unknown) [facility]) Result panel 1208 (unknown) (no date) (unknown) [facility]) Result panel 1209 (unknown) (no date) (unknown) [facility] Result panel 1210 (unknown) (no date) (unknown) [facility]) Result panel 1211 (unknown) (no date) (unknown) [facility]) Result panel 1212 (unknown) (no date) (unknown) [facility]) Result panel 1213 (unknown) (no date) (unknown) [facility]) Result panel 1214 (unknown) (no date) (unknown) [facility]) Result panel 1215 (unknown) (no date) (unknown) [facility]) Result panel 1216 (unknown) (no date) (unknown) [facility]) Result panel 1217 (unknown) (no date) (unknown) [facility]) Result panel 1218 (unknown) (no date) (unknown) [facility]) Result panel 1219 (unknown) (no date) (unknown) [facility]) Result panel 1220 (unknown) (no date) (unknown) [facility]) Result panel 1221 (unknown) (no date) (unknown) [facility]) Result panel 1222 (unknown) (no date) (unknown) [facility]) Result panel 1223 (unknown) (no date) (unknown) [facility]) Result panel 1224 (unknown) (no date) (unknown) [facility]) Result panel 1225 (unknown) (no date) (unknown) [facility]) Result panel 1226 (unknown) (no date) (unknown) [facility]) Result panel 1227 (unknown) (no date) (unknown) [facility]) Result panel 1228 (unknown) (no date) (unknown) [facility]) Result panel 1229 (unknown) (no date) (unknown) [facility]) Result panel 1230 (unknown) (no date) (unknown) [facility]) Result panel 1231 (unknown) (no date) (unknown) [facility]) Result panel 1232 (unknown) (no date) (unknown) [facility]) Result panel 1233 (unknown) (no date) (unknown) [facility]) Result panel 1234 (unknown) (no date) (unknown) [facility]) Result panel 1235 (unknown) (no date) (unknown) [facility]) Result panel 1236 (unknown) (no date) (unknown) [facility]) Result panel 1237 (unknown) (no date) (unknown) [facility]) Result panel 1238 (unknown) (no date) (unknown) [facility]) Result panel 1239 (unknown) (no date) (unknown) [facility]) Result panel 1240 (unknown) (no date) (unknown) [facility]) Result panel 1241 (unknown) (no date) (unknown) [facility]) Result panel 1242 (unknown) (no date) (unknown) [facility]) Result panel 1243 (unknown) (no date) (unknown) [facility]) Result panel 1244 (unknown) (no date) (unknown) [facility]) Result panel 1245 (unknown) (no date) (unknown) [facility]) Result panel 1246 (unknown) (no date) (unknown) [facility]) Result panel 1247 (unknown) (no date) (unknown) [facility]) Result panel 1248 (unknown) (no date) (unknown) [facility]) Result panel 1249 (unknown) (no date) (unknown) [facility]) Result panel 1250 (unknown) (no date) (unknown) [facility]) Result panel 1251 (unknown) (no date) (unknown) [facility]) Result panel 1252 (unknown) (no date) (unknown) [facility]) Result panel 1253 (unknown) (no date) (unknown) [facility]) Result panel 1254 (unknown) (no date) (unknown) [facility]) Result panel 1255 (unknown) (no date) (unknown) [facility]) Result panel 1256 (unknown) (no date) (unknown) [facility]) Result panel 1257 (unknown) (no date) (unknown) [facility]) Result panel 1258 (unknown) (no date) (unknown) [facility]) Result panel 1259 (unknown) (no date) (unknown) [facility]) Result panel 1260 (unknown) (no date) (unknown) [facility]) Result panel 1261 (unknown) (no date) (unknown) [facility]) Result panel 1262 (unknown) (no date) (unknown) [facility]) Result panel 1263 (unknown) (no date) (unknown) [facility]) Result panel 1264 (unknown) (no date) (unknown) [facility]) Result panel 1265 (unknown) (no date) (unknown) [facility]) Result panel 1266 (unknown) (no date) (unknown) [facility]) Result panel 1267 (unknown) (no date) (unknown) [facility]) Result panel 1268 (unknown) (no date) (unknown) [facility]) Result panel 1269 (unknown) (no date) (unknown) [facility]) Result panel 1270 (unknown) (no date) (unknown) [facility]) Result panel 1271 (unknown) (no date) (unknown) [facility]) Result panel 1272 (unknown) (no date) (unknown) [facility]) Result panel 1273 (unknown) (no date) (unknown) [facility]) Result panel 1274 (unknown) (no date) (unknown) [facility]) Result panel 1275 (unknown) (no date) (unknown) [facility]) Result panel 1276 (unknown) (no date) (unknown) [facility]) Result panel 1277 (unknown) (no date) (unknown) [facility]) Result panel 1278 (unknown) (no date) (unknown) [facility]) Result panel 1279 (unknown) (no date) (unknown) [facility]) Result panel 1280 (unknown) (no date) (unknown) [facility]) Result panel 1281 (unknown) (no date) (unknown) [facility]) Result panel 1282 (unknown) (no date) (unknown) [facility]) Result panel 1283 (unknown) (no date) (unknown) [facility]) Result panel 1284 (unknown) (no date) (unknown) [facility]) Result panel 1285 (unknown) (no date) (unknown) [facility]) Result panel 1286 (unknown) (no date) (unknown) [facility]) Result panel 1287 (unknown) (no date) (unknown) [facility]) Result panel 1288 (unknown) (no date) (unknown) [facility]) Result panel 1289 (unknown) (no date) (unknown) [facility]) Result panel 1290 (unknown) (no date) (unknown) [facility]) Result panel 1291 (unknown) (no date) (unknown) [facility]) Result panel 1292 (unknown) (no date) (unknown) [facility]) Result panel 1293 (unknown) (no date) (unknown) [facility]) Result panel 1294 (unknown) (no date) (unknown) [facility]) Result panel 1295 (unknown) (no date) (unknown) [facility]) Result panel 1296 (unknown) (no date) (unknown) [facility]) Result panel 1297 (unknown) (no date) (unknown) [facility]) Result panel 1298 (unknown) (no date) (unknown) [facility]) Result panel 1299 (unknown) (no date) (unknown) [facility]) Result panel 1300 (unknown) (no date) (unknown) [facility]) Result panel 1301 (unknown) (no date) (unknown) [facility]) Result panel 1302 (unknown) (no date) (unknown) [facility]) Result panel 1303 (unknown) (no date) (unknown) [facility]) Result panel 1304 (unknown) (no date) (unknown) [facility]) Result panel 1305 (unknown) (no date) (unknown) [facility]) Result panel 1306 (unknown) (no date) (unknown) [facility]) Result panel 1307 (unknown) (no date) (unknown) [facility]) Result panel 1308 (unknown) (no date) (unknown) [facility]) Result panel 1309 (unknown) (no date) (unknown) [facility]) Result panel 1310 (unknown) (no date) (unknown) [facility]) Result panel 1311 (unknown) (no date) (unknown) [facility]) Result panel 1312 (unknown) (no date) (unknown) [facility]) Result panel 1313 (unknown) (no date) (unknown) [facility]) Result panel 1314 (unknown) (no date) (unknown) [facility]) Result panel 1315 (unknown) (no date) (unknown) [facility]) Result panel 1316 (unknown) (no date) (unknown) [facility]) Result panel 1317 (unknown) (no date) (unknown) [facility]) Result panel 1318 (unknown) (no date) (unknown) [facility]) Result panel 1319 (unknown) (no date) (unknown) [facility]) Result panel 1320 (unknown) (no date) (unknown) [facility]) Result panel 1321 (unknown) (no date) (unknown) [facility]) Result panel 1322 (unknown) (no date) (unknown) [facility]) Result panel 1323 (unknown) (no date) (unknown) [facility]) Result panel 1324 (unknown) (no date) (unknown) [facility]) Result panel 1325 (unknown) (no date) (unknown) [facility]) Result panel 1326 (unknown) (no date) (unknown) [facility]) Result panel 1327 (unknown) (no date) (unknown) [facility]) Result panel 1328 (unknown) (no date) (unknown) [facility]) Result panel 1329 (unknown) (no date) (unknown) [facility]) Result panel 1330 (unknown) (no date) (unknown) [facility]) Result panel 1331 (unknown) (no date) (unknown) [facility]) Result panel 1332 (unknown) (no date) (unknown) [facility]) Result panel 1333 (unknown) (no date) (unknown) [facility]) Result panel 1334 (unknown) (no date) (unknown) [facility]) Result panel 1335 (unknown) (no date) (unknown) [facility]) Result panel 1336 (unknown) (no date) (unknown) [facility]) Result panel 1337 (unknown) (no date) (unknown) [facility]) Result panel 1338 (unknown) (no date) (unknown) [facility]) Result panel 1339 (unknown) (no date) (unknown) [facility]) Result panel 1340 (unknown) (no date) (unknown) [facility]) Result panel 1341 (unknown) (no date) (unknown) [facility]) Result panel 1342 (unknown) (no date) (unknown) [facility]) Result panel 1343 (unknown) (no date) (unknown) [facility]) Result panel 1344 (unknown) (no date) (unknown) [facility]) Result panel 1345 (unknown) (no date) (unknown) [facility]) Result panel 1346 (unknown) (no date) (unknown) [facility]) Result panel 1347 (unknown) (no date) (unknown) [facility]) Result panel 1348 (unknown) (no date) (unknown) [facility]) Result panel 1349 (unknown) (no date) (unknown) [facility]) Result panel 1350 (unknown) (no date) (unknown) [facility]) Result panel 1351 (unknown) (no date) (unknown) [facility]) Result panel 1352 (unknown) (no date) (unknown) [facility]) Result panel 1353 (unknown) (no date) (unknown) [facility]) Result panel 1354 (unknown) (no date) (unknown) [facility]) Result panel 1355 (unknown) (no date) (unknown) [facility]) Result panel 1356 (unknown) (no date) (unknown) [facility]) Result panel 1357 (unknown) (no date) (unknown) [facility]) Result panel 1358 (unknown) (no date) (unknown) [facility]) Result panel 1359 (unknown) (no date) (unknown) [facility]) Result panel 1360 (unknown) (no date) (unknown) [facility]) Result panel 1361 (unknown) (no date) (unknown) [facility]) Result panel 1362 (unknown) (no date) (unknown) [facility]) Result panel 1363 (unknown) (no date) (unknown) [facility]) Result panel 1364 (unknown) (no date) (unknown) [facility]) Result panel 1365 (unknown) (no date) (unknown) [facility]) Result panel 1366 (unknown) (no date) (unknown) [facility]) Result panel 1367 (unknown) (no date) (unknown) [facility]) Result panel 1368 (unknown) (no date) (unknown) [facility]) Result panel 1369 (unknown) (no date) (unknown) [facility]) Result panel 1370 (unknown) (no date) (unknown) [facility]) Result panel 1371 (unknown) (no date) (unknown) [facility]) Result panel 1372 (unknown) (no date) (unknown) [facility]) Result panel 1373 (unknown) (no date) (unknown) [facility]) Result panel 1374 (unknown) (no date) (unknown) [facility]) Result panel 1375 (unknown) (no date) (unknown) [facility]) Result panel 1376 (unknown) (no date) (unknown) [facility]) Result panel 1377 (unknown) (no date) (unknown) [facility]) Result panel 1378 (unknown) (no date) (unknown) [facility]) Result panel 1379 (unknown) (no date) (unknown) [facility]) Result panel 1380 (unknown) (no date) (unknown) [facility]) Result panel 1381 (unknown) (no date) (unknown) [facility]) Result panel 1382 (unknown) (no date) (unknown) [facility]) Result panel 1383 (unknown) (no date) (unknown) [facility]) Result panel 1384 (unknown) (no date) (unknown) [facility]) Result panel 1385 (unknown) (no date) (unknown) [facility]) Result panel 1386 (unknown) (no date) (unknown) [facility]) Result panel 1387 (unknown) (no date) (unknown) [facility] Result panel 1388 (unknown) (no date) (unknown) [facility] Result panel 1389 (unknown) (no date) (unknown) [facility] Result panel 1390 (unknown) (no date) (unknown[facility] Result panel 1391 (unknown) (no date) (unknown) [facility] Result panel 1392 (unknown) (no date) (unknown) [facility] Result panel 1393 (unknown) (no date) (unknown) [facility] Result panel 1394 (unknown) (no date) (unknown) [facility] Result panel 1395 (unknown) (no date) (unknown) [facility] Result panel 1396 (unknown) (no date) (unknown) [facility] Result panel 1397 (unknown) (no date) (unknown[facility] Result panel 1398 (unknown) (no date) (unknown) [facility]) Result panel 1399 (unknown) (no date) (unknown) [facility] Result panel 1400 (unknown) (no date) (unknown) [facility] Result panel 1401 (unknown) (no date) (unknown) [facility] Result panel 1402 (unknown) (no date) (unknown) [facility] Result panel 1403 (unknown) (no date) (unknown) [facility] Result panel 1404 (unknown) (no date) (unknown) [facility] Result panel 1405 (unknown) (no date) (unknown) [facility] Result panel 1406 (unknown) (no date) (unknown) [facility] Result panel 1407 (unknown) (no date) (unknown) [facility] Result panel 1408 (unknown) (no date) (unknown) [facility] Result panel 1409 (unknown) (no date) (unknown) [facility] Result panel 1410 (unknown) (no date) (unknown) [facility] Result panel 1411 (unknown) (no date) (unknown) [facility] Result panel 1412 (unknown) (no date) (unknown) [facility] Result panel 1413 (unknown) (no date) (unknown) [facility]) Result panel 1414 (unknown) (no date) (unknown) [facility] Result panel 1415 (unknown) (no date) (unknown[facility] Result panel 1416 (unknown) (no date) (unknown[facility] Result panel 1417 (unknown) (no date) (unknown) [facility] Result panel 1418 (unknown) (no date) (unknown) [facility] Result panel 1419 (unknown) (no date) (unknown) [facility] Result panel 1420 (unknown) (no date) (unknown) [facility] Result panel 1421 (unknown) (no date) (unknown[facility] Result panel 1422 (unknown) (no date) (unknown) [facility] Result panel 1423 (unknown) (no date) (unknown) [facility] Result panel 1424 (unknown) (no date) (unknown) [facility] Result panel 1425 (unknown) (no date) (unknown) [facility] Result panel 1426 (unknown) (no date) (unknown) [facility] Result panel 1427 (unknown) (no date) (unknown) [facility] Result panel 1428 (unknown) (no date) (unknown) [facility] Result panel 1429 (unknown) (no date) (unknown) [facility] Result panel 1430 (unknown) (no date) (unknown) [facility] Result panel 1431 (unknown) (no date) (unknown[facility] Result panel 1432 (unknown) (no date) (unknown) [facility] Result panel 1433 (unknown) (no date) (unknown) [facility]) Result panel 1434 (unknown) (no date) (unknown) [facility] Result panel 1435 (unknown) (no date) (unknown) [facility] Result panel 1436 (unknown) (no date) (unknown) [facility] Result panel 1437 (unknown) (no date) (unknown) [facility] Result panel 1438 (unknown) (no date) (unknown[facility] Result panel 1439 (unknown) (no date) (unknown[facility] Result panel 1440 (unknown) (no date) (unknown[facility] Result panel 1441 (unknown) (no date) (unknown) [facility] Result panel 1442 (unknown) (no date) (unknown[facility] Result panel 1443 (unknown) (no date) (unknown) [facility] Result panel 1444 (unknown) (no date) (unknown) [facility]) Result panel 1445 (unknown) (no date) (unknown[facility] Result panel 1446 (unknown) (no date) (unknown) [facility] Result panel 1447 (unknown) (no date) (unknown) [facility] Result panel 1448 (unknown) (no date) (unknown) [facility] Result panel 1449 (unknown) (no date) (unknown) [facility] Result panel 1450 (unknown) (no date) (unknown) [facility]) Result panel 1451 (unknown) (no date) (unknown) [facility]) Result panel 1452 (unknown) (no date) (unknown) [facility]) Result panel 1453 (unknown) (no date) (unknown) [facility]) Result panel 1454 (unknown) (no date) (unknown[facility] Result panel 1455 (unknown) (no date) (unknown) [facility]) Result panel 1456 (unknown) (no date) (unknown) [facility]) Result panel 1457 (unknown) (no date) (unknown) [facility] Result panel 1458 (unknown) (no date) (unknown) [facility]) Result panel 1459 (unknown) (no date) (unknown) [facility]) Result panel 1460 (unknown) (no date) (unknown) [facility]) Result panel 1461 (unknown) (no date) (unknown[facility]) Result panel 1462 (unknown) (no date) (unknown) [facility] Result panel 1463 (unknown) (no date) (unknown) [facility]) Result panel 1464 (unknown) (no date) (unknown) [facility]) Result panel 1465 (unknown) (no date) (unknown) [facility]) Result panel 1466 (unknown) (no date) (unknown[facility]) Result panel 1467 (unknown) (no date) (unknown) [facility]) Result panel 1468 (unknown) (no date) (unknown) [facility]) Result panel 1469 (unknown) (no date) (unknown) [facility]) Result panel 1470 (unknown) (no date) (unknown) [facility]) Result panel 1471 (unknown) (no date) (unknown) [facility] Result panel 1472 (unknown) (no date) (unknown) [facility]) Result panel 1473 (unknown) (no date) (unknown) [facility]) Result panel 1474 (unknown) (no date) (unknown) [facility] Result panel 1475 (unknown) (no date) (unknown) [facility]) Result panel 1476 (unknown) (no date) (unknown) [facility]) Result panel 1477 (unknown) (no date) (unknown) [facility]) Result panel 1478 (unknown) (no date) (unknown) [facility]) Result panel 1479 (unknown) (no date) (unknown[facility] Result panel 1480 (unknown) (no date) (unknown[facility]) Result panel 1481 (unknown) (no date) (unknown) [facility]) Result panel 1482 (unknown) (no date) (unknown[facility]) Result panel 1483 (unknown) (no date) (unknown) [facility]) Result panel 1484 (unknown) (no date) (unknown) [facility]) Result panel 1485 (unknown) (no date) (unknown) [facility] Result panel 1486 (unknown) (no date) (unknown) [facility]) Result panel 1487 (unknown) (no date) (unknown) [facility] Result panel 1488 (unknown) (no date) (unknown[facility]) Result panel 1489 (unknown) (no date) (unknown) [facility] Result panel 1490 (unknown) (no date) (unknown) [facility]) Result panel 1491 (unknown) (no date) (unknown) [facility]) Result panel 1492 (unknown) (no date) (unknown) [facility]) Result panel 1493 (unknown) (no date) (unknown) [facility]) Result panel 1494 (unknown) (no date) (unknown) [facility]) Result panel 1495 (unknown) (no date) (unknown) [facility]) Result panel 1496 (unknown) (no date) (unknown[facility]) Result panel 1497 (unknown) (no date) (unknown) [facility]) Result panel 1498 (unknown) (no date) (unknown[facility]) Result panel 1499 (unknown) (no date) (unknown) [facility]) Result panel 1500 (unknown) (no date) (unknown[facility]) Result panel 1501 (unknown) (no date) (unknown[facility] Result panel 1502 (unknown) (no date) (unknown) [facility]) Result panel 1503 (unknown) (no date) (unknown) [facility] Result panel 1504 (unknown) (no date) (unknown) [facility]) Result panel 1505 (unknown) (no date) (unknown[facility]) Result panel 1506 (unknown) (no date) (unknown) [facility]) Result panel 1507 (unknown) (no date) (unknown[facility]) Result panel 1508 (unknown) (no date) (unknown[facility]) Result panel 1509 (unknown) (no date) (unknown) [facility] Result panel 1510 (unknown) (no date) (unknown[facility]) Result panel 1511 (unknown) (no date) (unknown[facility]) Result panel 1512 (unknown) (no date) (unknown) [facility]) Result panel 1513 (unknown) (no date) (unknown) [facility] Result panel 1514 (unknown) (no date) (unknown[facility]) Result panel 1515 (unknown) (no date) (unknown) [facility] Result panel 1516 (unknown) (no date) (unknown) [facility] Result panel 1517 (unknown) (no date) (unknown[facility]) Result panel 1518 (unknown) (no date) (unknown[facility]) Result panel 1519 (unknown) (no date) (unknown) [facility]) Result panel 1520 (unknown) (no date) (unknown) [facility]) Result panel 1521 (unknown) (no date) (unknown) [facility] Result panel 1522 (unknown) (no date) (unknown) [facility]) Result panel 1523 (unknown) (no date) (unknown) [facility]) Result panel 1524 (unknown) (no date) (unknown[facility]) Result panel 1525 (unknown) (no date) (unknown[facility]) Result panel 1526 (unknown) (no date) (unknown[facility]) Result panel 1527 (unknown) (no date) (unknown) [facility]) Result panel 1528 (unknown) (no date) (unknown) [facility]) Result panel 1529 (unknown) (no date) (unknown) [facility]) Result panel 1530 (unknown) (no date) (unknown[facility]) Result panel 1531 (unknown) (no date) (unknown) [facility]) Result panel 1532 (unknown) (no date) (unknown) [facility]) Result panel 1533 (unknown) (no date) (unknown) [facility]) Result panel 1534 (unknown) (no date) (unknown) [facility]) Result panel 1535 (unknown) (no date) (unknown) [facility]) Result panel 1536 (unknown) (no date) (unknown) [facility]) Result panel 1537 (unknown) (no date) (unknown) [facility]) Result panel 1538 (unknown) (no date) (unknown) [facility]) Result panel 1539 (unknown) (no date) (unknown[facility]) Result panel 1540 (unknown) (no date) (unknown) [facility]) Result panel 1541 (unknown) (no date) (unknown) [facility]) Result panel 1542 (unknown) (no date) (unknown) [facility]) Result panel 1543 (unknown) (no date) (unknown) [facility]) Result panel 1544 (unknown) (no date) (unknown) [facility]) Result panel 1545 (unknown) (no date) (unknown) [facility]) Result panel 1546 (unknown) (no date) (unknown) [facility]) Result panel 1547 (unknown) (no date) (unknown) [facility]) Result panel 1548 (unknown) (no date) (unknown) [facility]) Result panel 1549 (unknown) (no date) (unknown) [facility]) Result panel 1550 (unknown) (no date) (unknown) [facility]) Result panel 1551 (unknown) (no date) (unknown) [facility]) Result panel 1552 (unknown) (no date) (unknown) [facility]) Result panel 1553 (unknown) (no date) (unknown) [facility]) Result panel 1554 (unknown) (no date) (unknown) [facility]) Result panel 1555 (unknown) (no date) (unknown) [facility]) Result panel 1556 (unknown) (no date) (unknown) [facility]) Result panel 1557 (unknown) (no date) (unknown) [facility]) Result panel 1558 (unknown) (no date) (unknown) [facility]) Result panel 1559 (unknown) (no date) (unknown) [facility]) Result panel 1560 (unknown) (no date) (unknown) [facility]) Result panel 1561 (unknown) (no date) (unknown) [facility]) Result panel 1562 (unknown) (no date) (unknown) [facility]) Result panel 1563 (unknown) (no date) (unknown) [facility]) Result panel 1564 (unknown) (no date) (unknown) [facility]) Result panel 1565 (unknown) (no date) (unknown) [facility]) Result panel 1566 (unknown) (no date) (unknown) [facility]) Result panel 1567 (unknown) (no date) (unknown) [facility]) Result panel 1568 (unknown) (no date) (unknown) [facility]) Result panel 1569 (unknown) (no date) (unknown) [facility]) Result panel 1570 (unknown) (no date) (unknown) [facility]) Result panel 1571 (unknown) (no date) (unknown) [facility]) Result panel 1572 (unknown) (no date) (unknown) [facility]) Result panel 1573 (unknown) (no date) (unknown) [facility]) Result panel 1574 (unknown) (no date) (unknown) [facility]) Result panel 1575 (unknown) (no date) (unknown) [facility]) Result panel 1576 (unknown) (no date) (unknown) [facility]) Result panel 1577 (unknown) (no date) (unknown) [facility]) Result panel 1578 (unknown) (no date) (unknown) [facility]) Result panel 1579 (unknown) (no date) (unknown) [facility]) Result panel 1580 (unknown) (no date) (unknown) [facility]) Result panel 1581 (unknown) (no date) (unknown) [facility]) Result panel 1582 (unknown) (no date) (unknown) [facility]) Result panel 1583 (unknown) (no date) (unknown) [facility]) Result panel 1584 (unknown) (no date) (unknown) [facility]) Result panel 1585 (unknown) (no date) (unknown) [facility]) Result panel 1586 (unknown) (no date) (unknown) [facility]) Result panel 1587 (unknown) (no date) (unknown) [facility]) Result panel 1588 (unknown) (no date) (unknown) [facility]) Result panel 1589 (unknown) (no date) (unknown) [facility]) Result panel 1590 (unknown) (no date) (unknown) [facility]) Result panel 1591 (unknown) (no date) (unknown) [facility]) Result panel 1592 (unknown) (no date) (unknown) [facility]) Result panel 1593 (unknown) (no date) (unknown) [facility]) Result panel 1594 (unknown) (no date) (unknown) [facility]) Result panel 1595 (unknown) (no date) (unknown[facility]) Result panel 1596 (unknown) (no date) (unknown) [facility]) Result panel 1597 (unknown) (no date) (unknown) [facility]) Result panel 1598 (unknown) (no date) (unknown) [facility]) Result panel 1599 (unknown) (no date) (unknown) [facility]) Result panel 1600 (unknown) (no date) (unknown) [facility]) Result panel 1601 (unknown) (no date) (unknown) [facility]) Result panel 1602 (unknown) (no date) (unknown) [facility]) Result panel 1603 (unknown) (no date) (unknown) [facility]) Result panel 1604 (unknown) (no date) (unknown) [facility]) Result panel 1605 (unknown) (no date) (unknown) [facility]) Result panel 1606 (unknown) (no date) (unknown) [facility]) Result panel 1607 (unknown) (no date) (unknown) [facility]) Result panel 1608 (unknown) (no date) (unknown) [facility]) Result panel 1609 (unknown) (no date) (unknown) [facility]) Result panel 1610 (unknown) (no date) (unknown) [facility]) Result panel 1611 (unknown) (no date) (unknown) [facility]) Result panel 1612 (unknown) (no date) (unknown) [facility]) Result panel 1613 (unknown) (no date) (unknown) [facility]) Result panel 1614 (unknown) (no date) (unknown) [facility]) Result panel 1615 (unknown) (no date) (unknown) [facility]) Result panel 1616 (unknown) (no date) (unknown) [facility]) Result panel 1617 (unknown) (no date) (unknown) [facility]) Result panel 1618 (unknown) (no date) (unknown) [facility]) Result panel 1619 (unknown) (no date) (unknown) [facility]) Result panel 1620 (unknown) (no date) (unknown) [facility]) Result panel 1621 (unknown) (no date) (unknown) [facility] [facility] Result panel 1622 (unknown) (no date) (unknown) [facility]) Result panel 1623 (unknown) (no date) (unknown) [facility]) Result panel 1624 (unknown) (no date) (unknown) [facility]) Result panel 1625 (unknown) (no date) (unknown) [facility]) Result panel 1626 (unknown) (no date) (unknown) [facility]) Result panel 1627 (unknown) (no date) (unknown) [facility]) Result panel 1628 (unknown) (no date) (unknown) [facility]) Result panel 1629 (unknown) (no date) (unknown) [facility]) Result panel 1630 (unknown) (no date) (unknown) [facility]) Result panel 1631 (unknown) (no date) (unknown) [facility]) Result panel 1632 (unknown) (no date) (unknown) [facility]) Result panel 1633 (unknown) (no date) (unknown) [facility]) Result panel 1634 (unknown) (no date) (unknown) [facility]) Result panel 1635 (unknown) (no date) (unknown) [facility]) Result panel 1636 (unknown) (no date) (unknown[facility]) Result panel 1637 (unknown) (no date) (unknown) [facility]) Result panel 1638 (unknown) (no date) (unknown) [facility]) Result panel 1639 (unknown) (no date) (unknown) [facility]) Result panel 1640 (unknown) (no date) (unknown) [facility]) Result panel 1641 (unknown) (no date) (unknown) [facility]) Result panel 1642 (unknown) (no date) (unknown) [facility]) Result panel 1643 (unknown) (no date) (unknown) [facility]) Result panel 1644 (unknown) (no date) (unknown) [facility]) Result panel 1645 (unknown) (no date) (unknown) [facility]) Result panel 1646 (unknown) (no date) (unknown) [facility]) Result panel 1647 (unknown) (no date) (unknown) [facility]) Result panel 1648 (unknown) (no date) (unknown) [facility]) Result panel 1649 (unknown) (no date) (unknown) [facility]) Result panel 1650 (unknown) (no date) (unknown) [facility]) Result panel 1651 (unknown) (no date) (unknown) [facility]) Result panel 1652 (unknown) (no date) (unknown) [facility]) Result panel 1653 (unknown) (no date) (unknown) [facility]) Result panel 1654 (unknown) (no date) (unknown) [facility]) Result panel 1655 (unknown) (no date) (unknown) [facility]) Result panel 1656 (unknown) (no date) (unknown) [facility]) Result panel 1657 (unknown) (no date) (unknown) [facility]) Result panel 1658 (unknown) (no date) (unknown) [facility]) Result panel 1659 (unknown) (no date) (unknown) [facility]) Result panel 1660 (unknown) (no date) (unknown) [facility]) Result panel 1661 (unknown) (no date) (unknown) [facility]) Result panel 1662 (unknown) (no date) (unknown) [facility]) Result panel 1663 (unknown) (no date) (unknown) [facility]) Result panel 1664 (unknown) (no date) (unknown) [facility]) Result panel 1665 (unknown) (no date) (unknown) [facility]) Result panel 1666 (unknown) (no date) (unknown) [facility]) Result panel 1667 (unknown) (no date) (unknown) [facility]) Result panel 1668 (unknown) (no date) (unknown) [facility]) Result panel 1669 (unknown) (no date) (unknown) [facility]) Result panel 1670 (unknown) (no date) (unknown) [facility]) Result panel 1671 (unknown) (no date) (unknown) [facility]) Result panel 1672 (unknown) (no date) (unknown) [facility]) Result panel 1673 (unknown) (no date) (unknown) [facility]) Result panel 1674 (unknown) (no date) (unknown) [facility]) Result panel 1675 (unknown) (no date) (unknown) [facility]) Result panel 1676 (unknown) (no date) (unknown) [facility]) Result panel 1677 (unknown) (no date) (unknown) [facility]) Result panel 1678 (unknown) (no date) (unknown) [facility]) Result panel 1679 (unknown) (no date) (unknown) [facility]) Result panel 1680 (unknown) (no date) (unknown) [facility]) Result panel 1681 (unknown) (no date) (unknown) [facility]) Result panel 1682 (unknown) (no date) (unknown) [facility]) Result panel 1683 (unknown) (no date) (unknown) [facility]) Result panel 1684 (unknown) (no date) (unknown) [facility]) Result panel 1685 (unknown) (no date) (unknown) [facility]) Result panel 1686 (unknown) (no date) (unknown) [facility]) Result panel 1687 (unknown) (no date) (unknown) [facility]) Result panel 1688 (unknown) (no date) (unknown) [facility]) Result panel 1689 (unknown) (no date) (unknown) [facility]) Result panel 1690 (unknown) (no date) (unknown) [facility]) Result panel 1691 (unknown) (no date) (unknown) [facility]) Result panel 1692 (unknown) (no date) (unknown) [facility]) Result panel 1693 (unknown) (no date) (unknown) [facility]) Result panel 1694 (unknown) (no date) (unknown) [facility]) Result panel 1695 (unknown) (no date) (unknown) [facility]) Result panel 1696 (unknown) (no date) (unknown) [facility]) Result panel 1697 (unknown) (no date) (unknown) [facility]) Result panel 1698 (unknown) (no date) (unknown) [facility]) Result panel 1699 (unknown) (no date) (unknown) [facility]) Result panel 1700 (unknown) (no date) (unknown) [facility]) Result panel 1701 (unknown) (no date) (unknown) [facility]) Result panel 1702 (unknown) (no date) (unknown) [facility]) Result panel 1703 (unknown) (no date) (unknown) [facility]) Result panel 1704 (unknown) (no date) (unknown) [facility]) Result panel 1705 (unknown) (no date) (unknown) [facility]) Result panel 1706 (unknown) (no date) (unknown) [facility]) Result panel 1707 (unknown) (no date) (unknown) [facility]) Result panel 1708 (unknown) (no date) (unknown) [facility]) Result panel 1709 (unknown) (no date) (unknown) [facility]) Result panel 1710 (unknown) (no date) (unknown) [facility]) Result panel 1711 (unknown) (no date) (unknown) [facility]) Result panel 1712 (unknown) (no date) (unknown) [facility]) Result panel 1713 (unknown) (no date) (unknown) [facility]) Result panel 1714 (unknown) (no date) (unknown) [facility]) Result panel 1715 (unknown) (no date) (unknown) [facility]) Result panel 1716 (unknown) (no date) (unknown) [facility]) Result panel 1717 (unknown) (no date) (unknown) [facility]) Result panel 1718 (unknown) (no date) (unknown) [facility]) Result panel 1719 (unknown) (no date) (unknown) [facility]) Result panel 1720 (unknown) (no date) (unknown) [facility]) Result panel 1721 (unknown) (no date) (unknown) [facility]) Result panel 1722 (unknown) (no date) (unknown) [facility]) Result panel 1723 (unknown) (no date) (unknown) [facility]) Result panel 1724 (unknown) (no date) (unknown) [facility]) Result panel 1725 (unknown) (no date) (unknown) [facility]) Result panel 1726 (unknown) (no date) (unknown) [facility]) Result panel 1727 (unknown) (no date) (unknown) [facility]) Result panel 1728 (unknown) (no date) (unknown) [facility]) Result panel 1729 (unknown) (no date) (unknown) [facility]) Result panel 1730 (unknown) (no date) (unknown) [facility]) Result panel 1731 (unknown) (no date) (unknown) [facility]) Result panel 1732 (unknown) (no date) (unknown) [facility]) Result panel 1733 (unknown) (no date) (unknown) [facility]) Result panel 1734 (unknown) (no date) (unknown) [facility]) Result panel 1735 (unknown) (no date) (unknown) [facility]) Result panel 1736 (unknown) (no date) (unknown) [facility]) Result panel 1737 (unknown) (no date) (unknown) [facility]) Result panel 1738 (unknown) (no date) (unknown) [facility]) Result panel 1739 (unknown) (no date) (unknown) [facility]) Result panel 1740 (unknown) (no date) (unknown) [facility]) Result panel 1741 (unknown) (no date) (unknown) [facility]) Result panel 1742 (unknown) (no date) (unknown) [facility]) Result panel 1743 (unknown) (no date) (unknown) [facility]) Result panel 1744 (unknown) (no date) (unknown) [facility]) Result panel 1745 (unknown) (no date) (unknown) [facility]) Result panel 1746 (unknown) (no date) (unknown) [facility]) Result panel 1747 (unknown) (no date) (unknown) [facility]) Result panel 1748 (unknown) (no date) (unknown) [facility]) Result panel 1749 (unknown) (no date) (unknown) [facility]) Result panel 1750 (unknown) (no date) (unknown) [facility]) Result panel 1751 (unknown) (no date) (unknown) [facility]) Result panel 1752 (unknown) (no date) (unknown) [facility]) Result panel 1753 (unknown) (no date) (unknown) [facility]) Result panel 1754 (unknown) (no date) (unknown) [facility]) Result panel 1755 (unknown) (no (unknown) (unknown) (no value) (units (unk nown) date) unknown) (unknown) (no (unknown) (unknown) [id number] (units (unkno wn) date) unknown) (unknown) (no (unknown) (unknown) 12/06/22 (units (unkno wn) date) unknown) (unknown) (no (unknown) (unknown) 1. Cardiomegaly, (units (unknown) date) remote CABG. unknown) (unknown) (no (unknown) (unknown) [address] [place] [address] (units (unknown) date) unknown) (unknown) (no (unknown) (unknown) 2. Emphysema. (units ( unknown) date) unknown) (unknown) (no (unknown) (unknown) 3. 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 (unknown) (no (unknown) (unknown) Accession (units (unkn own) date) Number: unknown) [id number] (unknown) (no (unknown) (unknown) Age/Sex: 86 / F (units (unknown) date) Date of Service: unknown) (unknown) (no (unknown) (unknown) JENN Lopez (units ( unknown) date) [id number] unknown) (unknown) (no (unknown) (unknown) Approved by: (units (u nknown) date) ramona Cancino M.D. on 12/06/2022 at 13:46 (unknown) (no (unknown) (unknown) Bones and chest (units (unknown) date) wall: No unknown) suspicious bony lesions. Overlying soft tissues (unknown) (no (unknown) (unknown) COMPARISON: (units (un known) date) [facility], unknown) CT, CT ANGIO CHEST PE PROTOCOL, 06/18/2022, 12:50. (unknown) (no (unknown) (unknown) : 1935 (units (unknown) date) Acct:[id number] unknown) (unknown) (no (unknown) (unknown) Dictated by: (units (u nknown) date) Memo Pelletier, unknownTucker Nuñez on 12/06/2022 at 13:45 (unknown) (no (unknown) (unknown) FINDINGS: (units (unkn own) date) unknown) (unknown) (no (unknown) (unknown) Hospital, CR, XR (units (unknown) date) CHEST 1V, unknown) 07/24/2022, 10:15. (unknown) (no (unknown) (unknown) IMPRESSION: (units (un known) date) unknown) (unknown) (no (unknown) (unknown) INDICATIONS: (units (u nknown) date) chest pain unknown) (unknown) (no (unknown) (unknown) [facility] (units (unknown) date) unknown) (unknown) (no (unknown) (unknown) [place] (units (unkno wn) date) unknown) (unknown) (no (unknown) (unknown) Loc: ED (units (unkno wn) date) unknown) (unknown) (no (unknown) (unknown) Lungs and (units (unkn own) date) pleura: unknown) Centrilobular emphysema. Mild chronic interstitial (unknown) (no (unknown) (unknown) Mediastinum: (units (u nknown) date) Mediastinal unknown) contours appear normal. Cardiomegaly. (unknown) (no (unknown) (unknown) Ordering (units (unkno wn) date) Provider: unknown) Quintin Multani MD (unknown) (no (unknown) (unknown) PROCEDURE: XR (units ( unknown) date) CHEST 1V unknown) (unknown) (no (unknown) (unknown) Patient: (units (unkno wn) date) Roselyn Mejia A unknown) MR#: [id number] (unknown) (no (unknown) (unknown) Procedure: XR (units ( unknown) date) chest 1V unknown) (unknown) (no (unknown) (unknown) Signed (units (unkno wn) date) unknown) (unknown) (no (unknown) (unknown) Surgical changes (units (unknown) date) and devices: unknown) Remote CABG (unknown) (no (unknown) (unknown) TECHNIQUE: One (units (unknown) date) view of the chest unknown) was acquired. (unknown) (no (unknown) (unknown) XRay Report (units (un known) date) unknown) (unknown) (no (unknown) (unknown) appear (units (unkno wn) date) unknown) (unknown) (no (unknown) (unknown) fibrosis. Lungs (units (unknown) date) are clear. No unknown) pleural effusions or pneumothorax. (unknown) (no (unknown) (unknown) pulmonary (units (unkn own) date) unknown) (unknown) (no (unknown) (unknown) unremarkable. (units ( unknown) date) unknown) Result panel 1756 (unknown) (no date) (unknown) (unknown) 0 /ul (unkn own) (unknown) (no date) (unknown) (unknown) 0.4 % (unkn own) (unknown) (no date) (unknown) (unknown) 11.2 x10 3/ul (unkn own) (unknown) (no date) (unknown) (unknown) 14.4 g/dl (unkn own) (unknown) (no date) (unknown) (unknown) 16.6 % (unkn own) (unknown) (no date) (unknown) (unknown) 2.7 % (unkn own) (unknown) (no date) (unknown) (unknown) 216 x10 3/ul (unkn own) (unknown) (no date) (unknown) (unknown) 27.1 pg (unkn own) (unknown) (no date) (unknown) (unknown) 300 /ul (unkn own) (unknown) (no date) (unknown) (unknown) 32.2 % (unkn own) (unknown) (no date) (unknown) (unknown) 4.5 % (unkn own) (unknown) (no date) (unknown) (unknown) 44.9 % (unkn own) (unknown) (no date) (unknown) (unknown) 5.32 x10 6/ul (unkn own) (unknown) (no date) (unknown) (unknown) 5.7 % (unkn own) (unknown) (no date) (unknown) (unknown) 500 /ul (unkn own) (unknown) (no date) (unknown) (unknown) 600 /ul (unkn own) (unknown) (no date) (unknown) (unknown) 84.3 fl (unkn own) (unknown) (no date) (unknown) (unknown) 86.7 % (unkn own) (unknown) (no date) (unknown) (unknown) 9700 /ul (unkn own) Result panel 1757 (unknown) (no date) (unknown) (unknown) Negative (units (unkn own) unknown) Result panel 1758 (unknown) (no date) (unknown) (unknown) 1.1 (units unknown) (unknown) (unknown) (no date) (unknown) (unknown) 12.1 seconds (unkn own) Result panel 1759 (unknown) (no date) (unknown) (unknown) > 60 ml/min (unkn own) (unknown) (no date) (unknown) (unknown) > 60 ml/min (unkn own) (unknown) (no date) (unknown) (unknown) 0.85 mg/dl (unkn own) (unknown) (no date) (unknown) (unknown) 1.1 mg/dl (unkn own) (unknown) (no date) (unknown) (unknown) 1.4 (units (unkn own) unknown) (unknown) (no date) (unknown) (unknown) 1.8 mg/dl (unkn own) (unknown) (no date) (unknown) (unknown) 10.4 mg/dl (unkn own) (unknown) (no date) (unknown) (unknown) 114 mg/dl (unkn own) (unknown) (no date) (unknown) (unknown) 114 mg/dl (unkn own) (unknown) (no date) (unknown) (unknown) 139 mmol/l (unkn own) (unknown) (no date) (unknown) (unknown) 20 mg/dl (unkn own) (unknown) (no date) (unknown) (unknown) 21 iu/l (unkn own) (unknown) (no date) (unknown) (unknown) 23.5 (units (unkn own) unknown) (unknown) (no date) (unknown) (unknown) 3.2 g/dl (unkn own) (unknown) (no date) (unknown) (unknown) 30 iu/l (unkn own) (unknown) (no date) (unknown) (unknown) 32 mmol/l (unkn own) (unknown) (no date) (unknown) (unknown) 4.4 g/dl (unkn own) (unknown) (no date) (unknown) (unknown) 4.6 mmol/l (unkn own) (unknown) (no date) (unknown) (unknown) 50 u/l (unkn own) (unknown) (no date) (unknown) (unknown) 7.6 g/dl (unkn own) (unknown) (no date) (unknown) (unknown) 79 u/l (unkn own) (unknown) (no date) (unknown) (unknown) 81 u/l (unkn own) (unknown) (no date) (unknown) (unknown) 98 mmol/l (unkn own) (unknown) (no date) (unknown) (unknown) Test not % (unkn own) performed (unknown) (no date) (unknown) (unknown) Test not % (unkn own) performed (unknown) (no date) (unknown) (unknown) Test not ng/ml (unkn own) performed (unknown) (no date) (unknown) (unknown) Test not ng/ml (unkn own) performed Result panel 1760 (unknown) (no date) (unknown) (unknown) Negative (units (unkn own) unknown) (unknown) (no date) (unknown) (unknown) Negative (units (unkn own) unknown) Result panel 1761 (unknown) (no date) (unknown) (unknown) 1.1 (units unknown) (unknown) (unknown) (no date) (unknown) (unknown) 12.1 seconds (unkn own) (unknown) (no date) (unknown) (unknown) 33 seconds (unkn own) (unknown) (no date) (unknown) (unknown) 33 seconds (unkn own) Result panel 1762 (unknown) (no date) (unknown) (unknown) > 60 ml/min (unkn own) (unknown) (no date) (unknown) (unknown) > 60 ml/min (unkn own) (unknown) (no date) (unknown) (unknown) 0.021 ng/ml (unkn own) (unknown) (no date) (unknown) (unknown) 0.021 ng/ml (unkn own) (unknown) (no date) (unknown) (unknown) 0.85 mg/dl (unkn own) (unknown) (no date) (unknown) (unknown) 1.1 mg/dl (unkn own) (unknown) (no date) (unknown) (unknown) 1.4 (units (unkn own) unknown) (unknown) (no date) (unknown) (unknown) 1.8 mg/dl (unkn own) (unknown) (no date) (unknown) (unknown) 10.4 mg/dl (unkn own) (unknown) (no date) (unknown) (unknown) 114 mg/dl (unkn own) (unknown) (no date) (unknown) (unknown) 114 mg/dl (unkn own) (unknown) (no date) (unknown) (unknown) 139 mmol/l (unkn own) (unknown) (no date) (unknown) (unknown) 20 mg/dl (unkn own) (unknown) (no date) (unknown) (unknown) 21 iu/l (unkn own) (unknown) (no date) (unknown) (unknown) 23.5 (units (unkn own) unknown) (unknown) (no date) (unknown) (unknown) 3.2 g/dl (unkn own) (unknown) (no date) (unknown) (unknown) 30 iu/l (unkn own) (unknown) (no date) (unknown) (unknown) 32 mmol/l (unkn own) (unknown) (no date) (unknown) (unknown) 4.4 g/dl (unkn own) (unknown) (no date) (unknown) (unknown) 4.6 mmol/l (unkn own) (unknown) (no date) (unknown) (unknown) 50 u/l (unkn own) (unknown) (no date) (unknown) (unknown) 7.6 g/dl (unkn own) (unknown) (no date) (unknown) (unknown) 79 u/l (unkn own) (unknown) (no date) (unknown) (unknown) 81 u/l (unkn own) (unknown) (no date) (unknown) (unknown) 98 mmol/l (unkn own) (unknown) (no date) (unknown) (unknown) Test not % (unkn own) performed (unknown) (no date) (unknown) (unknown) Test not % (unkn own) performed (unknown) (no date) (unknown) (unknown) Test not ng/ml (unkn own) performed (unknown) (no date) (unknown) (unknown) Test not ng/ml (unkn own) performed Result panel 1763 (unknown) (no (unknown) (unknown) (no value) (units (unk nown) date) unknown) (unknown) (no (unknown) (unknown) [id number] (units (unkno wn) date) unknown) (unknown) (no (unknown) (unknown) 12/06/22 (units (unkno wn) date) unknown) (unknown) (no (unknown) (unknown) [address] [place] [address] (units (unknown) date) unknown) (unknown) (no (unknown) (unknown) 5.2 cm, (units (unkno wn) date) previously 6.1 x unknown) 4.7 cm on 02/24/2022. Vascular surgery referral is (unknown) (no (unknown) (unknown) ABDOMEN: (units (unkno wn) date) unknown) (unknown) (no (unknown) (unknown) Abdominal Nodes: (units (unknown) date) No retroperitoneal unknown) or mesenteric adenopathy by size criteria. (unknown) (no (unknown) (unknown) Accession Number: (units (unknown) date) [id number] unknown) (unknown) (no (unknown) (unknown) Adrenal Glands: (units (unknown) date) Unremarkable. unknown) (unknown) (no (unknown) (unknown) After the (units (unkn own) date) administration of unknown) intravenous contrast, axial sections acquired from (unknown) (no (unknown) (unknown) Age/Sex: 86 / F (units (unknown) date) Date of Service: unknown) (unknown) (no (unknown) (unknown) [place] (units ( unknown) date) [id number] unknown) (unknown) (no (unknown) (unknown) Approved by: Heladio Gillunits (unknown) dateTucker Rangel M.D. on unknown) 12/06/2022 at 14:53 (unknown) (no (unknown) (unknown) Biliary ducts: (units (unknown) date) Within normal unknown) limits, status post cholecystectomy. (unknown) (no (unknown) (unknown) Bladder: (units (unkno wn) date) Unremarkable. unknown) (unknown) (no (unknown) (unknown) Bones: (units (unkno wn) date) Unremarkable. unknown) (unknown) (no (unknown) (unknown) COMPARISON: (units (un known) date) [facility], unknown) CT, CT ABDOMEN PELVIS W CON, 02/24/2022, 22:35. (unknown) (no (unknown) (unknown) CT Scan Report (units (unknown) date) unknown) (unknown) (no (unknown) (unknown) : 1935 (units (unknown) date) Acct:[id number] unknown) (unknown) (no (unknown) (unknown) Dictated by: Heladio (units (unknown) date) Joaquin Rangel on unknown) 12/06/2022 at 14:45 (unknown) (no (unknown) (unknown) FINDINGS: (units (unkn own) date) unknown) (unknown) (no (unknown) (unknown) For (units (unkno wn) date) unknown) (unknown) (no (unknown) (unknown) Gallbladder: (units (u nknown) date) Absent. unknown) (unknown) (no (unknown) (unknown) Heart: (units (unkno wn) date) Cardiomegaly. unknown) (unknown) (no (unknown) (unknown) IMPRESSION: (units (un known) date) unknown) (unknown) (no (unknown) (unknown) INDICATIONS: (units (u nknown) date) vomiting unknown) (unknown) (no (unknown) (unknown) Image quality: (units (unknown) date) Excellent. 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 Maximum diameter (unknown) (no (unknown) (unknown) [facility] (units (unknown) date) unknown) (unknown) (no (unknown) (unknown) Kidneys and (units (un known) date) Ureters: No unknown) complex cystic lesions requiring further follow-up. (unknown) (no (unknown) (unknown) Liver: (units (unkno wn) date) Unremarkable. unknown) (unknown) (no (unknown) (unknown) Loc: ED (units (unkno wn) date) unknown) (unknown) (no (unknown) (unknown) Lung bases: (units (un known) date) Moderate unknown) centrilobular emphysema. (unknown) (no (unknown) (unknown) Miscellaneous: (units (unknown) date) Left inguinal unknown) hernia containing fat. (unknown) (no (unknown) (unknown) Moderate (units (unkno wn) date) unknown) (unknown) (no (unknown) (unknown) No bowel (units (unkno wn) date) obstruction. unknown) (unknown) (no (unknown) (unknown) Ordering (units (unkno wn) date) Provider: unknown) Farshad Manley P.A-C (unknown) (no (unknown) (unknown) PELVIS: (units (unkno wn) date) unknown) (unknown) (no (unknown) (unknown) PROCEDURE: CT (units ( unknown) date) ABDOMEN PELVIS W unknown) CON (unknown) (no (unknown) (unknown) Pancreas: (units (unkn own) date) Unremarkable. unknown) (unknown) (no (unknown) (unknown) Patient: (units (unkno wn) date) Roselyn Mejia unknown) MR#: [id number] (unknown) (no (unknown) (unknown) Pelvic Nodes: No (units (unknown) date) enlarged lymph unknown) nodes. (unknown) (no (unknown) (unknown) Pelvic Organs: (units (unknown) date) Unremarkable. unknown) (unknown) (no (unknown) (unknown) Peritoneum: No (units (unknown) date) abnormal unknown) intraperitoneal fluid. No free air. (unknown) (no (unknown) (unknown) Procedure: CT (units ( unknown) date) abdomen pelvis w unknown) con (unknown) (no (unknown) (unknown) Signed (units (unkno wn) date) unknown) (unknown) (no (unknown) (unknown) Spleen: (units (unkno wn) date) Unremarkable. unknown) (unknown) (no (unknown) (unknown) Stomach and (units (un known) date) Bowel: Stomach, unknown) small bowel loops, and colon are unremarkable. (unknown) (no (unknown) (unknown) TECHNIQUE: (units (unk nown) date) unknown) (unknown) (no (unknown) (unknown) Ventral Wall: (units ( unknown) date) Small umbilical unknown) hernia containing fat. (unknown) (no (unknown) (unknown) Vessels: (units (unkno wn) date) Infrarenal aortic unknown) aneurysm significant plaque present. Maximum (unknown) (no (unknown) (unknown) adjustment (units (unk nown) date) unknown) (unknown) (no (unknown) (unknown) bases to the (units (u nknown) date) pubic symphysis. unknown) Coronal and sagittal reformats were performed. (unknown) (no (unknown) (unknown) diameter (units (unkno wn) date) unknown) (unknown) (no (unknown) (unknown) hiatal hernia. (units (unknown) date) unknown) (unknown) (no (unknown) (unknown) if not performed (units (unknown) date) in the past. unknown) (unknown) (no (unknown) (unknown) measures 6.3 x (units (unknown) date) 5.2 cm, previously unknown) 6.1 x 4.7 cm on 02/24/2022. (unknown) (no (unknown) (unknown) measures 6.3 x (units (unknown) date) unknown) (unknown) (no (unknown) (unknown) of mA and/or kV (units (unknown) date) according to unknown) patient size. (unknown) (no (unknown) (unknown) radiation dose (units (unknown) date) reduction, the unknown) following was used: automated exposure control, (unknown) (no (unknown) (unknown) recommended, (units (u nknown) date) unknown) (unknown) (no (unknown) (unknown) the lung (units (unkno wn) date) unknown) Result panel [id number] (unknown) (no (unknown) (unknown) (no value) (units (unk nown) date) unknown) (unknown) (no (unknown) (unknown) (120 mg-180 mg) (units (unknown) date) capsule (Fish Oil) unknown) (unknown) (no (unknown) (unknown) (2.5 mg base)/3 mL (units (unknown) date) nebulization Breath unknown) Or Wheezing (unknown) (no (unknown) (unknown) (Cartia XT) (units (un known) date) unknown) (unknown) (no (unknown) (unknown) 0.4 mg SUBLINGUAL (units (unknown) date) Q5-15M PRN (Reason: unknown) Chest Pain) (unknown) (no (unknown) (unknown) 12/06/22 12/06/22 (units (unknown) date) 12/06/22 unknown) Range/Units (unknown) (no (unknown) (unknown) 12/06/22 12/06/22 (units (unknown) date) Range/Units unknown) (unknown) (no (unknown) (unknown) 12/06/22 12:07 (units (unknown) date) unknown) (unknown) (no (unknown) (unknown) 12/06/22 12:10 (units (unknown) date) unknown) (unknown) (no (unknown) (unknown) 12/06/22 12:25 (units (unknown) date) unknown) (unknown) (no (unknown) (unknown) 12/06/22 12:34 (units (unknown) date) unknown) (unknown) (no (unknown) (unknown) 12/06/22 12:52 (units (unknown) date) unknown) (unknown) (no (unknown) (unknown) 12/06/22 (units (unkno wn) date) unknown) (unknown) (no (unknown) (unknown) [id number] (units (unkno wn) date) unknown) (unknown) (no (unknown) (unknown) 07/24/22 (units (unkno wn) date) unknown) (unknown) (no (unknown) (unknown) 1 tab PO DAILY (units (unknown) date) unknown) (unknown) (no (unknown) (unknown) 1,000 mg PO DAILY (units (unknown) date) unknown) (unknown) (no (unknown) (unknown) 10 mg PO TID PRN (units (unknown) date) (Reason: Muscle unknown) Spasm) (unknown) (no (unknown) (unknown) 10 ml PO PRN (units (u nknown) date) (Reason: Cough) unknown) (unknown) (no (unknown) (unknown) 10-100mg/5ml (units (u nknown) date) liquid. take 10ml unknown) by mouth every 4 hrs as needed for cough (unknown) (no (unknown) (unknown) 120 mg PO QAM (units ( unknown) date) unknown) (unknown) (no (unknown) (unknown) 12:01 12/06/22 (units (unknown) date) unknown) (unknown) (no (unknown) (unknown) 12:25 12:34 12:34 (units (unknown) date) unknown) (unknown) (no (unknown) (unknown) 12:30 12/06/22 (units (unknown) date) unknown) (unknown) (no (unknown) (unknown) 12:30 (units (unkno wn) date) unknown) (unknown) (no (unknown) (unknown) 12:34 12:34 (units (un known) date) unknown) (unknown) (no (unknown) (unknown) 18:34 (units (unkno wn) date) unknown) (unknown) (no (unknown) (unknown) 20 mg PO DAILY (units (unknown) date) unknown) (unknown) (no (unknown) (unknown) 20 mg PO QAM (units (u nknown) date) unknown) (unknown) (no (unknown) (unknown) 25 mg PO DAILY (units (unknown) date) unknown) (unknown) (no (unknown) (unknown) 40 mg PO QAM (units (u nknown) date) unknown) (unknown) (no (unknown) (unknown) 40 mg PO QPM (units (u nknown) date) unknown) (unknown) (no (unknown) (unknown) 400 unit PO DAILY (units (unknown) date) unknown) (unknown) (no (unknown) (unknown) 75 mg PO QAM (units (u nknown) date) unknown) (unknown) (no (unknown) (unknown) 81 mg PO QDAY Qty: (units (unknown) date) 0 unknown) (unknown) (no (unknown) (unknown) 86-year-old female (units (unknown) date) with past medical unknown) history NSTEMI, CHF, COPD, hypertension (unknown) (no (unknown) (unknown) 88 mcg PO QAM (units ( unknown) date) unknown) (unknown) (no (unknown) (unknown) 90 mcg INHALATION (units (unknown) date) PRN (Reason: unknown) Shortness Of Breath) (unknown) (no (unknown) (unknown) ALT (<35) IU/L (units (unknown) date) unknown) (unknown) (no (unknown) (unknown) ALT 21 (<35) IU/L (units (unknown) date) unknown) (unknown) (no (unknown) (unknown) APTT (26-36) (units (u nknown) date) SECONDS unknown) (unknown) (no (unknown) (unknown) APTT 33 (26-36) (units (unknown) date) SECONDS unknown) (unknown) (no (unknown) (unknown) AST (14-36) IU/L (units (unknown) date) unknown) (unknown) (no (unknown) (unknown) AST 30 (14-36) (units (unknown) date) IU/L unknown) (unknown) (no (unknown) (unknown) Age/Sex: 86 / F (units (unknown) date) unknown) (unknown) (no (unknown) (unknown) Albumin (3.5-5.0) (units (unknown) date) g/dL unknown) (unknown) (no (unknown) (unknown) Albumin 4.4 (units (un known) date) (3.5-5.0) g/dL unknown) (unknown) (no (unknown) (unknown) Albumin/Globulin (units (unknown) date) Ratio (1.0-2.8) unknown) (unknown) (no (unknown) (unknown) Albumin/Globulin (units (unknown) date) Ratio 1.4 (1.0-2.8) unknown) (unknown) (no (unknown) (unknown) Alkaline (units (unkno wn) date) Phosphatase unknown) (38-126) U/L (unknown) (no (unknown) (unknown) Alkaline (units (unkno wn) date) Phosphatase 81 unknown) (38-126) U/L (unknown) (no (unknown) (unknown) Allergies (units (unkn own) date) unknown) (unknown) (no (unknown) (unknown) Allergy/AdvReac (units (unknown) date) Type Severity unknown) Reaction Status Date / Time (unknown) (no (unknown) (unknown) 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 (unknown) (no (unknown) (unknown) Antibiotics) (units (u nknown) date) unknown) (unknown) (no (unknown) (unknown) Aspirin (Aspirin (units (unknown) date) 81 Mg Chew Tab) 324 unknown) mg PO NOW ONE (unknown) (no (unknown) (unknown) BNP [NT-proBNP (units (unknown) date) (BNP-Adult 18+)] unknown) Stat (unknown) (no (unknown) (unknown) BUN (7-17) mg/dL (units (unknown) date) unknown) (unknown) (no (unknown) (unknown) BUN 20 H (7-17) (units (unknown) date) mg/dL unknown) (unknown) (no (unknown) (unknown) BUN/Creatinine (units (unknown) date) Ratio (6-22) unknown) (unknown) (no (unknown) (unknown) BUN/Creatinine (units (unknown) date) Ratio 23.5 H (6-22) unknown) (unknown) (no (unknown) (unknown) Baso # (Auto) (units ( unknown) date) (0-100) /uL unknown) (unknown) (no (unknown) (unknown) Baso # (Auto) 0 (units (unknown) date) (0-100) /uL unknown) (unknown) (no (unknown) (unknown) Baso % (Auto) (units ( unknown) date) (0-2) % unknown) (unknown) (no (unknown) (unknown) Baso % (Auto) 0.4 (units (unknown) date) (0-2) % unknown) (unknown) (no (unknown) (unknown) Bedside Urine (units ( unknown) date) Bilirubin + 1 unknown) (unknown) (no (unknown) (unknown) Bedside Urine (units ( unknown) date) Glucose Negative unknown) (unknown) (no (unknown) (unknown) Bedside Urine (units ( unknown) date) Ketone - Negative unknown) (unknown) (no (unknown) (unknown) Bedside Urine (units ( unknown) date) Leukocytes - unknown) Negative (unknown) (no (unknown) (unknown) Bedside Urine (units ( unknown) date) Nitrite - Negative unknown) (unknown) (no (unknown) (unknown) Bedside Urine (units ( unknown) date) Occult Blood - unknown) Negative (unknown) (no (unknown) (unknown) Bedside Urine (units ( unknown) date) Protein - Negative unknown) (unknown) (no (unknown) (unknown) Bedside Urine (units ( unknown) date) Urobilinogen - unknown) Negative (unknown) (no (unknown) (unknown) Bedside Urine pH 6 (units (unknown) date) unknown) (unknown) (no (unknown) (unknown) 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 unknown) (unknown) (no (unknown) (unknown) Blood Pressure (units (unknown) date) 140/70 02/08/23 unknown) 12:01 (unknown) (no (unknown) (unknown) Blood Pressure (units (unknown) date) 140/70 141/94 H unknown) (unknown) (no (unknown) (unknown) Breathing (units (unkn own) date) unknown) (unknown) (no (unknown) (unknown) 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) unknown) (unknown) (no (unknown) (unknown) CK-MB (CK-2) Rel (units (unknown) date) Index TNP unknown) (unknown) (no (unknown) (unknown) CK-MB (CK-2) Rel (units (unknown) date) Index unknown) (unknown) (no (unknown) (unknown) CK-MB (CK-2) TNP (units (unknown) date) unknown) (unknown) (no (unknown) (unknown) CK-MB (CK-2) (units (u nknown) date) unknown) 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 (unknown) (no (unknown) (unknown) COVID19 -Nasal (units (unknown) date) RAPID/Pre-Proc Stat unknown) (unknown) (no (unknown) (unknown) Calcium (8.4-10.2) (units (unknown) date) mg/dL unknown) (unknown) (no (unknown) (unknown) Calcium 10.4 H (units (unknown) date) (8.4-10.2) mg/dL unknown) (unknown) (no (unknown) (unknown) Carbon Dioxide (units (unknown) date) (22-32) mmol/L unknown) (unknown) (no (unknown) (unknown) Carbon Dioxide 32 (units (unknown) date) (22-32) mmol/L unknown) (unknown) (no (unknown) (unknown) Chief Complaint: (units (unknown) date) Chest Pain unknown) (unknown) (no (unknown) (unknown) Chloride (98-107) (units (unknown) date) mmol/L unknown) (unknown) (no (unknown) (unknown) Chloride 98 (units (un known) date) (98-107) mmol/L unknown) (unknown) (no (unknown) (unknown) Complete Blood (units (unknown) date) Count AUTO DIFF unknown) Stat (unknown) (no (unknown) (unknown) Comprehensive (units ( unknown) date) Metabolic Panel unknown) Stat (unknown) (no (unknown) (unknown) Course (units (unkno wn) date) unknown) (unknown) (no (unknown) (unknown) Creatinine (units (unk nown) date) (0.52-1.04) mg/dL unknown) (unknown) (no (unknown) (unknown) Creatinine 0.85 (units (unknown) date) (0.52-1.04) mg/dL unknown) (unknown) (no (unknown) (unknown) : 1935 (units (unknown) date) Acct:[id number] unknown) (unknown) (no (unknown) (unknown) Date of Service: (units (unknown) date) 12/06/22 unknown) (unknown) (no (unknown) (unknown) Departure (units (unkn own) date) unknown) (unknown) (no (unknown) (unknown) Discharge Plan (units (unknown) date) unknown) (unknown) (no (unknown) (unknown) Discontinued (units (u nknown) date) Medications unknown) (unknown) (no (unknown) (unknown) Documented By: KB (units (unknown) date) unknown) (unknown) (no (unknown) (unknown) ED Orders (units (unkn own) date) unknown) (unknown) (no (unknown) (unknown) ED, had a massive (units (unknown) date) bout of emesis and unknown) watery diarrhea in the ED. Patient states (unknown) (no (unknown) (unknown) EKG-12 Lead Stat (units (unknown) date) unknown) (unknown) (no (unknown) (unknown) ER Physician: (units ( unknown) date) Farshad Manley P.A-David unknown) (unknown) (no (unknown) (unknown) Elevated TSH (units (u nknown) date) unknown) (unknown) (no (unknown) (unknown) Emergency Report (units (unknown) date) unknown) (unknown) (no (unknown) (unknown) Eos # (Auto) (units (u nknown) date) (0-450) /uL unknown) (unknown) (no (unknown) (unknown) Eos # (Auto) 300 (units (unknown) date) (0-450) /uL unknown) (unknown) (no (unknown) (unknown) Eos % (Auto) (2-4) (units (unknown) date) % unknown) (unknown) (no (unknown) (unknown) Eos % (Auto) 2.7 (units (unknown) date) (2-4) % unknown) (unknown) (no (unknown) (unknown) Esterase (units (unkno wn) date) unknown) (unknown) (no (unknown) (unknown) Estimated GFR > 60 (units (unknown) date) (>60) mL/min unknown) (unknown) (no (unknown) (unknown) Estimated GFR (units ( unknown) date) (>60) mL/min unknown) (unknown) (no (unknown) (unknown) Exam (units (unkno wn) date) unknown) (unknown) (no (unknown) (unknown) Family History (units (unknown) date) (Reviewed 07/07/22 unknown) @ 08:42 by Simon Smith MD) (unknown) (no (unknown) (unknown) Father Lung cancer (units (unknown) date) unknown) (unknown) (no (unknown) (unknown) Flonase 50 mcg (units (unknown) date) unknown) (unknown) (no (unknown) (unknown) Flonase PRN Dry (units (unknown) date) Nasal Passages unknown) 07/24/22 (unknown) (no (unknown) (unknown) General (units (unkno wn) date) unknown) (unknown) (no (unknown) (unknown) Globulin (1.7-4.1) (units (unknown) date) g/dL unknown) (unknown) (no (unknown) (unknown) Globulin 3.2 (units (u nknown) date) (1.7-4.1) g/dL unknown) (unknown) (no (unknown) (unknown) Glucose (80-110) (units (unknown) date) mg/dL unknown) (unknown) (no (unknown) (unknown) Glucose 114 H (units ( unknown) date) (80-110) mg/dL unknown) (unknown) (no (unknown) (unknown) H/O hysterectomy (units (unknown) date) with oophorectomy unknown) (unknown) (no (unknown) (unknown) 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 (unknown) (no (unknown) (unknown) HPI - Abdominal (units (unknown) date) Pain unknown) (unknown) (no (unknown) (unknown) HPI narrative: (units (unknown) date) unknown) (unknown) (no (unknown) (unknown) HTN (hypertension) (units (unknown) date) unknown) (unknown) (no (unknown) (unknown) Hct (36-46) % (units ( unknown) date) unknown) (unknown) (no (unknown) (unknown) Hct 44.9 (36-46) % (units (unknown) date) unknown) (unknown) (no (unknown) (unknown) Hgb (12.0-16.0) (units (unknown) date) g/dL unknown) (unknown) (no (unknown) (unknown) Hgb 14.4 (units (unkno wn) date) (12.0-16.0) g/dL unknown) (unknown) (no (unknown) (unknown) History of Present (units (unknown) date) Illness unknown) (unknown) (no (unknown) (unknown) Home Medications (units (unknown) date) unknown) (unknown) (no (unknown) (unknown) Hx of heart artery (units (unknown) date) stent unknown) (unknown) (no (unknown) (unknown) Hyperlipidemia (units (unknown) date) unknown) (unknown) (no (unknown) (unknown) INHALATION PRN (units (unknown) date) (Reason: Shortness unknown) Of Breath Or Wheezing) (unknown) (no (unknown) (unknown) INR (0.9-1.3) (units ( unknown) date) unknown) (unknown) (no (unknown) (unknown) INR 1.1 (0.9-1.3) (units (unknown) date) unknown) (unknown) (no (unknown) (unknown) Ictotest Urine (units (unknown) date) Stat unknown) (unknown) (no (unknown) (unknown) Initial Vital (units ( unknown) date) Signs unknown) (unknown) (no (unknown) (unknown) Initial Vital (units ( unknown) date) Signs: unknown) (unknown) (no (unknown) (unknown) [facility] (units (unknown) date) [address] unknown) [place] [address] (unknown) (no (unknown) (unknown) Lab Data (units (unkno wn) date) unknown) (unknown) (no (unknown) (unknown) Lab Results (units (un known) date) unknown) (unknown) (no (unknown) (unknown) Label Comments: (units (unknown) date) unknown) (unknown) (no (unknown) (unknown) Labs: (units (unkno wn) date) unknown) (unknown) (no (unknown) (unknown) Last Admin: (units (un known) date) 12/06/22 12:40 unknown) Dose: 4 mg (unknown) (no (unknown) (unknown) Lipase (23-300) (units (unknown) date) U/L unknown) (unknown) (no (unknown) (unknown) Lipase 79 (23-300) (units (unknown) date) U/L unknown) (unknown) (no (unknown) (unknown) Lipase Stat (units (un known) date) unknown) (unknown) (no (unknown) (unknown) Lymph # (Auto) (units (unknown) date) (1292-2957) /uL unknown) (unknown) (no (unknown) (unknown) Lymph # (Auto) 600 (units (unknown) date) L (9502-6098) /uL unknown) (unknown) (no (unknown) (unknown) Lymph % (Auto) (units (unknown) date) (25-40) % unknown) (unknown) (no (unknown) (unknown) Lymph % (Auto) 5.7 (units (unknown) date) L (25-40) % unknown) (unknown) (no (unknown) (unknown) MCH (26-34) PG (units (unknown) date) unknown) (unknown) (no (unknown) (unknown) MCH 27.1 (26-34) (units (unknown) date) PG unknown) (unknown) (no (unknown) (unknown) MCHC (30-36) % (units (unknown) date) unknown) (unknown) (no (unknown) (unknown) MCHC 32.2 (30-36) (units (unknown) date) % unknown) (unknown) (no (unknown) (unknown) MCV (80-100) fL (units (unknown) date) unknown) (unknown) (no (unknown) (unknown) MCV 84.3 (80-100) (units (unknown) date) fL unknown) (unknown) (no (unknown) (unknown) MDM - Abdominal (units (unknown) date) Pain unknown) (unknown) (no (unknown) (unknown) MDM Narrative (units ( unknown) date) unknown) (unknown) (no (unknown) (unknown) Magnesium (units (unkn own) date) (1.6-2.3) mg/dL unknown) (unknown) (no (unknown) (unknown) Magnesium 1.8 (units ( unknown) date) (1.6-2.3) mg/dL unknown) (unknown) (no (unknown) (unknown) Magnesium Stat (units (unknown) date) unknown) (unknown) (no (unknown) (unknown) Medical History (units (unknown) date) (Updated 08/11/22 @ unknown) 00:01 by ) (unknown) (no (unknown) (unknown) Medical decision (units (unknown) date) making narrative: unknown) (unknown) (no (unknown) (unknown) Medication (units (unk nown) date) Instructions unknown) Recorded Confirmed (unknown) (no (unknown) (unknown) Mode of arrival: (units (unknown) date) Ambulatory unknown) (unknown) (no (unknown) (unknown) Trigg # (Auto) (units ( unknown) date) (0-900) /uL unknown) (unknown) (no (unknown) (unknown) Trigg # (Auto) 500 (units (unknown) date) (0-900) /uL unknown) (unknown) (no (unknown) (unknown) Trigg % (Auto) (units ( unknown) date) (3-14) % unknown) (unknown) (no (unknown) (unknown) Trigg % (Auto) 4.5 (units (unknown) date) (3-14) % unknown) (unknown) (no (unknown) (unknown) Mother COPD (units (un known) date) (chronic unknown) obstructive pulmonary disease) (unknown) (no (unknown) (unknown) Neut # (Auto) (units ( unknown) date) (5070-3734) /uL unknown) (unknown) (no (unknown) (unknown) Neut # (Auto) 9700 (units (unknown) date) H (4783-4887) /uL unknown) (unknown) (no (unknown) (unknown) Neut % (Auto) (units ( unknown) date) (50-75) % unknown) (unknown) (no (unknown) (unknown) Neut % (Auto) 86.7 (units (unknown) date) H (50-75) % unknown) (unknown) (no (unknown) (unknown) No Action (units (unkn own) date) unknown) (unknown) (no (unknown) (unknown) Ondansetron HCl (units (unknown) date) (Ondansetron 4 Mg/2 unknown) Ml Inj) 4 mg IV NOW ONE (unknown) (no (unknown) (unknown) Ordered: (units (unkno wn) date) unknown) (unknown) (no (unknown) (unknown) Orders (units (unkno wn) date) unknown) (unknown) (no (unknown) (unknown) Oxygen Delivery (units (unknown) date) Method 12/06/22 unknown) 12:01 (unknown) (no (unknown) (unknown) Oxygen Delivery (units (unknown) date) Method Room Air unknown) Nasal Cannula (unknown) (no (unknown) (unknown) Oxygen Flow Rate 2 (units (unknown) date) unknown) (unknown) (no (unknown) (unknown) PRN (Reason: Dry (units (unknown) date) Nasal Passages) unknown) (unknown) (no (unknown) (unknown) PT (10.1-12.7) (units (unknown) date) SECONDS unknown) (unknown) (no (unknown) (unknown) PT 12.1 (units (unkno wn) date) (10.1-12.7) SECONDS unknown) (unknown) (no (unknown) (unknown) Pain (units (unkno wn) date) unknown) (unknown) (no (unknown) (unknown) Partial (units (unkno wn) date) Thromboplastin Time unknown) Stat (unknown) (no (unknown) (unknown) Patient History (units (unknown) date) unknown) (unknown) (no (unknown) (unknown) Patient: (units (unkno wn) date) Roselyn Mejia unknown) MR#: [id number] (unknown) (no (unknown) (unknown) Plt Count (units (unkn own) date) (150-400) X103/uL unknown) (unknown) (no (unknown) (unknown) Plt Count 216 (units ( unknown) date) (150-400) X103/uL unknown) (unknown) (no (unknown) (unknown) Point of Care (units ( unknown) date) Testing unknown) (unknown) (no (unknown) (unknown) Point of care (units ( unknown) date) testing: unknown) (unknown) (no (unknown) (unknown) Potassium (units (unkn own) date) (3.4-5.1) mmol/L unknown) (unknown) (no (unknown) (unknown) Potassium 4.6 (units ( unknown) date) (3.4-5.1) mmol/L unknown) (unknown) (no (unknown) (unknown) Prescriptions: (units (unknown) date) unknown) (unknown) (no (unknown) (unknown) Prothrombin Time (units (unknown) date) INR Stat unknown) (unknown) (no (unknown) (unknown) Pulse Oximetry 97 (units (unknown) date) 12/06/22 12:01 unknown) (unknown) (no (unknown) (unknown) Pulse Oximetry 97 (units (unknown) date) 99 unknown) (unknown) (no (unknown) (unknown) Pulse Rate 84 (units ( unknown) date) 12/06/22 12:01 unknown) (unknown) (no (unknown) (unknown) Pulse Rate 84 99 H (units (unknown) date) unknown) (unknown) (no (unknown) (unknown) RBC (4.0-5.2) (units ( unknown) date) X106/uL unknown) (unknown) (no (unknown) (unknown) RBC 5.32 H (units (unk nown) date) (4.0-5.2) X106/uL unknown) (unknown) (no (unknown) (unknown) RDW (11.6-14.8) % (units (unknown) date) unknown) (unknown) (no (unknown) (unknown) RDW 16.6 H (units (unk nown) date) (11.6-14.8) % unknown) (unknown) (no (unknown) (unknown) Referrals: (units (unk nown) date) unknown) (unknown) (no (unknown) (unknown) Related Data (units (u nknown) date) unknown) (unknown) (no (unknown) (unknown) Respiratory Rate (units (unknown) date) 16 12/06/22 12:01 unknown) (unknown) (no (unknown) (unknown) Respiratory Rate (units (unknown) date) 16 18 unknown) (unknown) (no (unknown) (unknown) Robitussin DM To (units (unknown) date) Go 10 ml PO PRN unknown) Cough 07/24/22 (unknown) (no (unknown) (unknown) Robitussin DM To (units (unknown) date) Go unknown) (unknown) (no (unknown) (unknown) Rx Instructions: (units (unknown) date) unknown) (unknown) (no (unknown) (unknown) SARS-CoV-2 (PCR) (units (unknown) date) (Negative) unknown) (unknown) (no (unknown) (unknown) SARS-CoV-2 (PCR) (units (unknown) date) Negative (Negative) unknown) (unknown) (no (unknown) (unknown) Signed By: (units (unk nown) date) unknown) (unknown) (no (unknown) (unknown) Skin (units (unkno wn) date) unknown) (unknown) (no (unknown) (unknown) Smoking Status: (units (unknown) date) Former smoker unknown) (unknown) (no (unknown) (unknown) Social History (units (unknown) date) (Reviewed 07/07/22 unknown) @ 08:42 by Simon Smith MD) (unknown) (no (unknown) (unknown) Sodium (137-145) (units (unknown) date) mmol/L unknown) (unknown) (no (unknown) (unknown) Sodium 139 (units (unk nown) date) (137-145) mmol/L unknown) (unknown) (no (unknown) (unknown) Source: patient (units (unknown) date) unknown) (unknown) (no (unknown) (unknown) Stated Complaint: (units (unknown) date) doesn't feel good unknown) stomach to chest (unknown) (no (unknown) (unknown) Status post (units (un known) date) cholecystectomy unknown) (unknown) (no (unknown) (unknown) Stool Occult Blood (units (unknown) date) Negative unknown) (unknown) (no (unknown) (unknown) Stop: 12/06/22 (units (unknown) date) 12:07 unknown) (unknown) (no (unknown) (unknown) Stop: 12/06/22 (units (unknown) date) 13:16 unknown) (unknown) (no (unknown) (unknown) Substance Use (units ( unknown) date) Type: does not use unknown) (unknown) (no (unknown) (unknown) Sulfa (Sulfonamide (units (unknown) date) Allergy unknown) Intermediate rash Verified 07/26/22 18:34 (unknown) (no (unknown) (unknown) Surgical History (units (unknown) date) (Reviewed 07/07/22 unknown) @ 08:42 by Simon Smith MD) (unknown) (no (unknown) (unknown) TAKE 1 CAPSULE BY (units (unknown) date) MOUTH ONCE DAILY unknown) (unknown) (no (unknown) (unknown) TAKE 1 TABLET BY (units (unknown) date) MOUTH ONCE DAILY IN unknown) THE MORNING (unknown) (no (unknown) (unknown) TAKE 1 TABLET BY (units (unknown) date) MOUTH ONCE DAILY unknown) (unknown) (no (unknown) (unknown) Temperature 98 F (units (unknown) date) 12/06/22 12:01 unknown) (unknown) (no (unknown) (unknown) Temperature 98 F (units (unknown) date) unknown) (unknown) (no (unknown) (unknown) Time Seen by (units (u nknown) date) Provider: 12/06/22 unknown) 12:15 (unknown) (no (unknown) (unknown) Total Bilirubin (units (unknown) date) (0.2-1.3) mg/dL unknown) (unknown) (no (unknown) (unknown) Total Bilirubin (units (unknown) date) 1.1 (0.2-1.3) mg/dL unknown) (unknown) (no (unknown) (unknown) Total Creatine (units (unknown) date) Kinase (30-135) U/L unknown) (unknown) (no (unknown) (unknown) Total Creatine (units (unknown) date) Kinase 50 (30-135) unknown) U/L (unknown) (no (unknown) (unknown) Total Protein (units ( unknown) date) (6.3-8.2) g/dL unknown) (unknown) (no (unknown) (unknown) Total Protein 7.6 (units (unknown) date) (6.3-8.2) g/dL unknown) (unknown) (no (unknown) (unknown) Troponin + CK (units ( unknown) date) Cardiac Panel Stat unknown) (unknown) (no (unknown) (unknown) Troponin I (units (unk nown) date) (0.01-0.034) ng/mL unknown) (unknown) (no (unknown) (unknown) Troponin I 0.021 (units (unknown) date) (0.01-0.034) ng/mL unknown) (unknown) (no (unknown) (unknown) Unstable angina (units (unknown) date) unknown) (unknown) (no (unknown) (unknown) Ur Bilirubin (units (u nknown) date) Confirm (Negative) unknown) (unknown) (no (unknown) (unknown) Ur Bilirubin (units (u nknown) date) Confirm Negative unknown) (Negative) (unknown) (no (unknown) (unknown) Urine Dip (units (unkn own) date) unknown) (unknown) (no (unknown) (unknown) Urine Specific (units (unknown) date) Supply 1.025 unknown) (unknown) (no (unknown) (unknown) Valvular heart (units (unknown) date) disease unknown) (unknown) (no (unknown) (unknown) Vital Signs - 8 hr (units (unknown) date) unknown) (unknown) (no (unknown) (unknown) Vital Signs (units (un known) date) unknown) (unknown) (no (unknown) (unknown) Vital signs: (units (u nknown) date) unknown) (unknown) (no (unknown) (unknown) WBC (4.5-11.0) (units (unknown) date) X103/uL unknown) (unknown) (no (unknown) (unknown) WBC 11.2 H (units (unk nown) date) (4.5-11.0) X103/uL unknown) (unknown) (no (unknown) (unknown) Katy Salazar, (units (unknown) date) 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 [Primary Care unknown) Provider] (unknown) (no (unknown) (unknown) XR chest 1V Stat (units (unknown) date) unknown) (unknown) (no (unknown) (unknown) [Embedded Image (units (unknown) date) Not Available] unknown) (unknown) (no (unknown) (unknown) [From Bactrim] (units (unknown) date) unknown) (unknown) (no (unknown) (unknown) [From Trilipix] (units (unknown) date) Upset unknown) (unknown) (no (unknown) (unknown) abdominal (units (unkn own) date) pathology. unknown) (unknown) (no (unknown) (unknown) acarbose Allergy (units (unknown) date) Intermediate unknown) Abdominal Verified 07/26/22 18:34 (unknown) (no (unknown) (unknown) albuterol 90 (units (u nknown) date) mcg/actuation unknown) Aerosol (unknown) (no (unknown) (unknown) albuterol 90 (units (u nknown) date) mcg/actuation unknown) aerosol 90 mcg inhalation PRN Shortness Of 07/24/22 (unknown) (no (unknown) (unknown) alcohol intake (units (unknown) date) frequency: 0-2 unknown) drinks per day (unknown) (no (unknown) (unknown) alcohol intake: (units (unknown) date) never unknown) (unknown) (no (unknown) (unknown) amlodipine Allergy (units (unknown) date) Intermediate unknown) Verified 07/26/22 18:34 (unknown) (no (unknown) (unknown) aspirin 81 MG (units ( unknown) date) tablet,delayed unknown) release (DR/EC) (unknown) (no (unknown) (unknown) aspirin 81 mg (units ( unknown) date) tablet,delayed 81 unknown) mg PO QDAY ##0 09/14/17 07/24/22 (unknown) (no (unknown) (unknown) atorvastatin 20 mg (units (unknown) date) tablet (Lipitor) 40 unknown) mg PO QPM 07/08/22 07/24/22 (unknown) (no (unknown) (unknown) atorvastatin (units (u nknown) date) [Lipitor] 20 mg unknown) tablet (unknown) (no (unknown) (unknown) budesonide [From (units (unknown) date) Symbicort] Allergy unknown) Mild Anxiety Verified 07/26/22 18:34 (unknown) (no (unknown) (unknown) capsule,extended (units (unknown) date) release 24 hr unknown) (unknown) (no (unknown) (unknown) carvedilol Allergy (units (unknown) date) Mild Rash Verified unknown) 07/26/22 18:34 (unknown) (no (unknown) (unknown) chlorthalidone (units (unknown) date) Allergy unknown) Intermediate Redness of Verified 07/26/22 18:34 (unknown) (no (unknown) (unknown) choline (units (unkno wn) date) fenofibrate Allergy unknown) Mild Gastrointestinal Verified 07/26/22 18:34 (unknown) (no (unknown) (unknown) clopidogrel 75 mg (units (unknown) date) tablet 75 mg PO QAM unknown) 07/24/22 07/24/22 (unknown) (no (unknown) (unknown) clopidogrel 75 mg (units (unknown) date) tablet unknown) (unknown) (no (unknown) (unknown) constipation. (units ( unknown) date) unknown) (unknown) (no (unknown) (unknown) cyclobenzaprine 10 (units (unknown) date) mg Tablet unknown) (unknown) (no (unknown) (unknown) cyclobenzaprine 10 (units (unknown) date) mg tablet 10 mg PO unknown) TID PRN Muscle Spasm 07/24/22 07/24/22 (unknown) (no (unknown) (unknown) diarrhea. Concern (units (unknown) date) for gastroenteritis unknown) versus dehydration versus other intra (unknown) (no (unknown) (unknown) diltiazem HCl 120 (units (unknown) date) mg 120 mg PO QAM unknown) 07/08/22 07/24/22 (unknown) (no (unknown) (unknown) diltiazem HCl (units ( unknown) date) [Cartia XT] 120 mg unknown) capsule,extended release 24hr (unknown) (no (unknown) (unknown) doxazosin [From (units (unknown) date) Cardura] Allergy unknown) Intermediate Rash Verified 07/26/22 18:34 (unknown) (no (unknown) (unknown) doxycycline (units (un known) date) Allergy unknown) Intermediate Rash Verified 07/26/22 18:34 (unknown) (no (unknown) (unknown) formoterol [From (units (unknown) date) Symbicort] Allergy unknown) Mild Anxiety Verified 07/26/22 18:34 (unknown) (no (unknown) (unknown) furosemide 40 mg (units (unknown) date) tablet 40 mg PO QAM unknown) 07/08/22 07/08/22 (unknown) (no (unknown) (unknown) furosemide 40 mg (units (unknown) date) tablet unknown) (unknown) (no (unknown) (unknown) gemfibrozil (units (un known) date) Allergy unknown) Intermediate Rash Verified 07/26/22 18:34 (unknown) (no (unknown) (unknown) history of (units (unk nown) date) constipation. unknown) Patient states that she more often has diarrhea than (unknown) (no (unknown) (unknown) household members: (units (unknown) date) family and children unknown) (unknown) (no (unknown) (unknown) inhaler Breath (units (unknown) date) unknown) (unknown) (no (unknown) (unknown) ipratropium 0.5 (units (unknown) date) mg-albuterol 3 mg unknown) ml inhalation PRN Shortness Of 07/24/22 (unknown) (no (unknown) (unknown) ipratropium-albute (units (unknown) date) rol 0.5 mg-3 mg(2.5 unknown) mg base)/3 mL solution for nebulization (unknown) (no (unknown) (unknown) isosorbide (units (unk nown) date) mononitrate 120 mg unknown) 120 mg PO QAM 07/08/22 07/24/22 (unknown) (no (unknown) (unknown) isosorbide (units (unk nown) date) mononitrate 120 mg unknown) tablet extended release 24 hr (unknown) (no (unknown) (unknown) levofloxacin (units (u nknown) date) Allergy unknown) Intermediate Rash Verified 07/26/22 18:34 (unknown) (no (unknown) (unknown) levothyroxine 88 (units (unknown) date) mcg tablet 88 mcg unknown) PO QAM 07/08/22 07/24/22 (unknown) (no (unknown) (unknown) levothyroxine 88 (units (unknown) date) mcg tablet unknown) (unknown) (no (unknown) (unknown) lisinopril 40 mg (units (unknown) date) tablet 20 mg PO QAM unknown) 07/08/22 07/24/22 (unknown) (no (unknown) (unknown) lisinopril 40 mg (units (unknown) date) tablet unknown) (unknown) (no (unknown) (unknown) losartan Allergy (units (unknown) date) Intermediate Rash unknown) Verified 07/26/22 18:34 (unknown) (no (unknown) (unknown) metoprolol AdvReac (units (unknown) date) Intermediate unknown) Verified 07/26/22 18:34 (unknown) (no (unknown) (unknown) metoprolol (units (unk nown) date) succinate 25 mg 25 unknown) mg PO DAILY 07/24/22 07/24/22 (unknown) (no (unknown) (unknown) metoprolol (units (unk nown) date) succinate 25 mg unknown) tablet extended release 24 hr (unknown) (no (unknown) (unknown) montelukast [From (units (unknown) date) Singulair] Allergy unknown) Intermediate Difficulty Verified 07/26/22 (unknown) (no (unknown) (unknown) morning (units (unkno wn) date) unknown) (unknown) (no (unknown) (unknown) multivitamin 1 tab (units (unknown) date) PO DAILY 09/10/18 unknown) 07/24/22 (unknown) (no (unknown) (unknown) multivitamin (units (u nknown) date) Tablet,Chewable unknown) (unknown) (no (unknown) (unknown) nifedipine Allergy (units (unknown) date) Intermediate Chills unknown) Verified 07/26/22 18:34 (unknown) (no (unknown) (unknown) nitroglycerin 0.4 (units (unknown) date) mg sublingual 0.4 unknown) mg sublingual Q5-15M PRN Chest 09/10/18 (unknown) (no (unknown) (unknown) nitroglycerin (units ( unknown) date) [Nitrostat] 0.4 mg unknown) Tablet, Sublingual (unknown) (no (unknown) (unknown) of breath, (units (unk nown) date) dysuria, unknown) lightheadedness, dizziness, syncope. Patient states that (unknown) (no (unknown) (unknown) omega (units (unkno wn) date) 0-get-hmg-fish oil unknown) 1,000 mg 1,000 mg PO DAILY 09/10/18 07/24/22 (unknown) (no (unknown) (unknown) omega (units (unkno wn) date) 3-ztd-fwb-fish oil unknown) [Fish Oil] 1,000 mg (120 mg-180 mg) Capsule (unknown) (no (unknown) (unknown) patient states she (units (unknown) date) forgets to take unknown) (unknown) (no (unknown) (unknown) presents to the ED (units (unknown) date) with 1 day of unknown) abdominal pain. Patient states she is feeling (unknown) (no (unknown) (unknown) presents to the ED (units (unknown) date) with 1 day of unknown) abdominal pain. 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 unknown) d/c 07/14/22 (unknown) (no (unknown) (unknown) release (units (unkno wn) date) unknown) (unknown) (no (unknown) (unknown) rest in her car (units (unknown) date) for a little bit unknown) but felt worse. Patient drove herself to the (unknown) (no (unknown) (unknown) she ate some salad (units (unknown) date) any bread stick at unknown) [employer] yesterday. Patient denies a (unknown) (no (unknown) (unknown) soln (units (unkno wn) date) unknown) (unknown) (no (unknown) (unknown) sulfamethoxazole (units (unknown) date) Allergy unknown) Intermediate Rash Verified 07/26/22 18:34 (unknown) (no (unknown) (unknown) tablet (Nitrostat) (units (unknown) date) Pain unknown) (unknown) (no (unknown) (unknown) tablet,extended (units (unknown) date) release 24 hr unknown) (unknown) (no (unknown) (unknown) that she had no (units (unknown) date) other symptoms unknown) including fevers, chills, chest pain, shortness (unknown) (no (unknown) (unknown) tobacco type: (units ( unknown) date) cigarettes unknown) (unknown) (no (unknown) (unknown) torsemide 20 mg (units (unknown) date) Tablet unknown) (unknown) (no (unknown) (unknown) torsemide 20 mg (units (unknown) date) tablet 20 mg PO unknown) DAILY 07/24/22 07/24/22 (unknown) (no (unknown) (unknown) trimethoprim [From (units (unknown) date) Bactrim] Allergy unknown) Intermediate Rash Verified 07/26/22 18:34 (unknown) (no (unknown) (unknown) up feeling fine, (units (unknown) date) went to [employer] unknown) study, it a little bit of fruit including (unknown) (no (unknown) (unknown) vitamin E 268 mg (units (unknown) date) (400 unit) capsule unknown) 400 unit PO DAILY 09/10/18 07/24/22 (unknown) (no (unknown) (unknown) vitamin E 400 unit (units (unknown) date) Capsule unknown) (unknown) (no (unknown) (unknown) watermelon, (units (un known) date) grapes, unknown) blackberries, felt uncomfortable in her abdomen, tried to (unknown) (no (unknown) (unknown) well and (units (unkno wn) date) symptom-free after unknown) she had a massive bout of emesis and watery Result panel [id number] (unknown) (no date) (unknown) (unknown) 5440 pg/ml (unkn own) (unknown) (no date) (unknown) (unknown) 5440 pg/ml (unkn own) Result panel 1766 (unknown) (no (unknown) (unknown) (no value) (units (unk nown) date) unknown) (unknown) (no (unknown) (unknown) (120 mg-180 mg) (units (unknown) date) capsule (Fish Oil) unknown) (unknown) (no (unknown) (unknown) (2.5 mg base)/3 mL (units (unknown) date) nebulization Breath unknown) Or Wheezing (unknown) (no (unknown) (unknown) (Cartia XT) (units (un known) date) unknown) (unknown) (no (unknown) (unknown) 0.4 mg SUBLINGUAL (units (unknown) date) Q5-15M PRN (Reason: unknown) Chest Pain) (unknown) (no (unknown) (unknown) 12/06/22 12/06/22 (units (unknown) date) 12/06/22 unknown) Range/Units (unknown) (no (unknown) (unknown) 12/06/22 12/06/22 (units (unknown) date) Range/Units unknown) (unknown) (no (unknown) (unknown) 12/06/22 12:07 (units (unknown) date) unknown) (unknown) (no (unknown) (unknown) 12/06/22 12:10 (units (unknown) date) unknown) (unknown) (no (unknown) (unknown) 12/06/22 12:25 (units (unknown) date) unknown) (unknown) (no (unknown) (unknown) 12/06/22 12:34 (units (unknown) date) unknown) (unknown) (no (unknown) (unknown) 12/06/22 12:52 (units (unknown) date) unknown) (unknown) (no (unknown) (unknown) 12/06/22 (units (unkno wn) date) unknown) (unknown) (no (unknown) (unknown) [id number] (units (unkno wn) date) unknown) (unknown) (no (unknown) (unknown) 07/24/22 (units (unkno wn) date) unknown) (unknown) (no (unknown) (unknown) 1 tab PO DAILY (units (unknown) date) unknown) (unknown) (no (unknown) (unknown) 1,000 mg PO DAILY (units (unknown) date) unknown) (unknown) (no (unknown) (unknown) 10 mg PO TID PRN (units (unknown) date) (Reason: Muscle unknown) Spasm) (unknown) (no (unknown) (unknown) 10 ml PO PRN (units (u nknown) date) (Reason: Cough) unknown) (unknown) (no (unknown) (unknown) 10-100mg/5ml (units (u nknown) date) liquid. take 10ml unknown) by mouth every 4 hrs as needed for cough (unknown) (no (unknown) (unknown) 120 mg PO QAM (units ( unknown) date) unknown) (unknown) (no (unknown) (unknown) 12:01 12/06/22 (units (unknown) date) unknown) (unknown) (no (unknown) (unknown) 12:25 12:34 12:34 (units (unknown) date) unknown) (unknown) (no (unknown) (unknown) 12:30 12/06/22 (units (unknown) date) unknown) (unknown) (no (unknown) (unknown) 12:30 (units (unkno wn) date) unknown) (unknown) (no (unknown) (unknown) 12:34 12:34 (units (un known) date) unknown) (unknown) (no (unknown) (unknown) 18:34 (units (unkno wn) date) unknown) (unknown) (no (unknown) (unknown) 20 mg PO DAILY (units (unknown) date) unknown) (unknown) (no (unknown) (unknown) 20 mg PO QAM (units (u nknown) date) unknown) (unknown) (no (unknown) (unknown) 25 mg PO DAILY (units (unknown) date) unknown) (unknown) (no (unknown) (unknown) 40 mg PO QAM (units (u nknown) date) unknown) (unknown) (no (unknown) (unknown) 40 mg PO QPM (units (u nknown) date) unknown) (unknown) (no (unknown) (unknown) 400 unit PO DAILY (units (unknown) date) unknown) (unknown) (no (unknown) (unknown) 75 mg PO QAM (units (u nknown) date) unknown) (unknown) (no (unknown) (unknown) 81 mg PO QDAY Qty: (units (unknown) date) 0 unknown) (unknown) (no (unknown) (unknown) 86-year-old female (units (unknown) date) with past medical unknown) history NSTEMI, CHF, COPD, hypertension (unknown) (no (unknown) (unknown) 88 mcg PO QAM (units ( unknown) date) unknown) (unknown) (no (unknown) (unknown) 90 mcg INHALATION (units (unknown) date) PRN (Reason: unknown) Shortness Of Breath) (unknown) (no (unknown) (unknown) ALT (<35) IU/L (units (unknown) date) unknown) (unknown) (no (unknown) (unknown) ALT 21 (<35) IU/L (units (unknown) date) unknown) (unknown) (no (unknown) (unknown) APTT (26-36) (units (u nknown) date) SECONDS unknown) (unknown) (no (unknown) (unknown) APTT 33 (26-36) (units (unknown) date) SECONDS unknown) (unknown) (no (unknown) (unknown) AST (14-36) IU/L (units (unknown) date) unknown) (unknown) (no (unknown) (unknown) AST 30 (14-36) (units (unknown) date) IU/L unknown) (unknown) (no (unknown) (unknown) Age/Sex: 86 / F (units (unknown) date) unknown) (unknown) (no (unknown) (unknown) Albumin (3.5-5.0) (units (unknown) date) g/dL unknown) (unknown) (no (unknown) (unknown) Albumin 4.4 (units (un known) date) (3.5-5.0) g/dL unknown) (unknown) (no (unknown) (unknown) Albumin/Globulin (units (unknown) date) Ratio (1.0-2.8) unknown) (unknown) (no (unknown) (unknown) Albumin/Globulin (units (unknown) date) Ratio 1.4 (1.0-2.8) unknown) (unknown) (no (unknown) (unknown) Alkaline (units (unkno wn) date) Phosphatase unknown) (38-126) U/L (unknown) (no (unknown) (unknown) Alkaline (units (unkno wn) date) Phosphatase 81 unknown) (38-126) U/L (unknown) (no (unknown) (unknown) Allergies (units (unkn own) date) unknown) (unknown) (no (unknown) (unknown) Allergy/AdvReac (units (unknown) date) Type Severity unknown) Reaction Status Date / Time (unknown) (no (unknown) (unknown) 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 (unknown) (no (unknown) (unknown) Antibiotics) (units (u nknown) date) unknown) (unknown) (no (unknown) (unknown) Aspirin (Aspirin (units (unknown) date) 81 Mg Chew Tab) 324 unknown) mg PO NOW ONE (unknown) (no (unknown) (unknown) BNP [NT-proBNP (units (unknown) date) (BNP-Adult 18+)] unknown) Stat (unknown) (no (unknown) (unknown) BUN (7-17) mg/dL (units (unknown) date) unknown) (unknown) (no (unknown) (unknown) BUN 20 H (7-17) (units (unknown) date) mg/dL unknown) (unknown) (no (unknown) (unknown) BUN/Creatinine (units (unknown) date) Ratio (6-22) unknown) (unknown) (no (unknown) (unknown) BUN/Creatinine (units (unknown) date) Ratio 23.5 H (6-22) unknown) (unknown) (no (unknown) (unknown) Baso # (Auto) (units ( unknown) date) (0-100) /uL unknown) (unknown) (no (unknown) (unknown) Baso # (Auto) 0 (units (unknown) date) (0-100) /uL unknown) (unknown) (no (unknown) (unknown) Baso % (Auto) (units ( unknown) date) (0-2) % unknown) (unknown) (no (unknown) (unknown) Baso % (Auto) 0.4 (units (unknown) date) (0-2) % unknown) (unknown) (no (unknown) (unknown) Bedside Urine (units ( unknown) date) Bilirubin + 1 unknown) (unknown) (no (unknown) (unknown) Bedside Urine (units ( unknown) date) Glucose Negative unknown) (unknown) (no (unknown) (unknown) Bedside Urine (units ( unknown) date) Ketone - Negative unknown) (unknown) (no (unknown) (unknown) Bedside Urine (units ( unknown) date) Leukocytes - unknown) Negative (unknown) (no (unknown) (unknown) Bedside Urine (units ( unknown) date) Nitrite - Negative unknown) (unknown) (no (unknown) (unknown) Bedside Urine (units ( unknown) date) Occult Blood - unknown) Negative (unknown) (no (unknown) (unknown) Bedside Urine (units ( unknown) date) Protein - Negative unknown) (unknown) (no (unknown) (unknown) Bedside Urine (units ( unknown) date) Urobilinogen - unknown) Negative (unknown) (no (unknown) (unknown) Bedside Urine pH 6 (units (unknown) date) unknown) (unknown) (no (unknown) (unknown) 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 unknown) (unknown) (no (unknown) (unknown) Blood Pressure (units (unknown) date) 140/70 12/06/22 unknown) 12:01 (unknown) (no (unknown) (unknown) Blood Pressure (units (unknown) date) 140/70 141/94 H unknown) (unknown) (no (unknown) (unknown) Breathing (units (unkn own) date) unknown) (unknown) (no (unknown) (unknown) 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) unknown) (unknown) (no (unknown) (unknown) CK-MB (CK-2) Rel (units (unknown) date) Index TNP unknown) (unknown) (no (unknown) (unknown) CK-MB (CK-2) Rel (units (unknown) date) Index unknown) (unknown) (no (unknown) (unknown) CK-MB (CK-2) TNP (units (unknown) date) unknown) (unknown) (no (unknown) (unknown) CK-MB (CK-2) (units (u nknown) date) unknown) 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 (unknown) (no (unknown) (unknown) COVID19 -Nasal (units (unknown) date) RAPID/Pre-Proc Stat unknown) (unknown) (no (unknown) (unknown) Calcium (8.4-10.2) (units (unknown) date) mg/dL unknown) (unknown) (no (unknown) (unknown) Calcium 10.4 H (units (unknown) date) (8.4-10.2) mg/dL unknown) (unknown) (no (unknown) (unknown) Carbon Dioxide (units (unknown) date) (22-32) mmol/L unknown) (unknown) (no (unknown) (unknown) Carbon Dioxide 32 (units (unknown) date) (22-32) mmol/L unknown) (unknown) (no (unknown) (unknown) Chief Complaint: (units (unknown) date) Chest Pain unknown) (unknown) (no (unknown) (unknown) Chloride (98-107) (units (unknown) date) mmol/L unknown) (unknown) (no (unknown) (unknown) Chloride 98 (units (un known) date) (98-107) mmol/L unknown) (unknown) (no (unknown) (unknown) Complete Blood (units (unknown) date) Count AUTO DIFF unknown) Stat (unknown) (no (unknown) (unknown) Comprehensive (units ( unknown) date) Metabolic Panel unknown) Stat (unknown) (no (unknown) (unknown) Course (units (unkno wn) date) unknown) (unknown) (no (unknown) (unknown) Creatinine (units (unk nown) date) (0.52-1.04) mg/dL unknown) (unknown) (no (unknown) (unknown) Creatinine 0.85 (units (unknown) date) (0.52-1.04) mg/dL unknown) (unknown) (no (unknown) (unknown) : 1935 (units (unknown) date) Acct:[id number] unknown) (unknown) (no (unknown) (unknown) Date of Service: (units (unknown) date) 12/06/22 unknown) (unknown) (no (unknown) (unknown) Departure (units (unkn own) date) unknown) (unknown) (no (unknown) (unknown) Discharge Plan (units (unknown) date) unknown) (unknown) (no (unknown) (unknown) Discontinued (units (u nknown) date) Medications unknown) (unknown) (no (unknown) (unknown) Documented By: KB (units (unknown) date) unknown) (unknown) (no (unknown) (unknown) ED Orders (units (unkn own) date) unknown) (unknown) (no (unknown) (unknown) ED, had a massive (units (unknown) date) bout of emesis and unknown) watery diarrhea in the ED. Patient states (unknown) (no (unknown) (unknown) EKG-12 Lead Stat (units (unknown) date) unknown) (unknown) (no (unknown) (unknown) ER Physician: (units ( unknown) date) Farshad Manley P.A-C unknown) (unknown) (no (unknown) (unknown) Elevated TSH (units (u nknown) date) unknown) (unknown) (no (unknown) (unknown) Emergency Report (units (unknown) date) unknown) (unknown) (no (unknown) (unknown) Eos # (Auto) (units (u nknown) date) (0-450) /uL unknown) (unknown) (no (unknown) (unknown) Eos # (Auto) 300 (units (unknown) date) (0-450) /uL unknown) (unknown) (no (unknown) (unknown) Eos % (Auto) (2-4) (units (unknown) date) % unknown) (unknown) (no (unknown) (unknown) Eos % (Auto) 2.7 (units (unknown) date) (2-4) % unknown) (unknown) (no (unknown) (unknown) Esterase (units (unkno wn) date) unknown) (unknown) (no (unknown) (unknown) Estimated GFR > 60 (units (unknown) date) (>60) mL/min unknown) (unknown) (no (unknown) (unknown) Estimated GFR (units ( unknown) date) (>60) mL/min unknown) (unknown) (no (unknown) (unknown) Exam (units (unkno wn) date) unknown) (unknown) (no (unknown) (unknown) Family History (units (unknown) date) (Reviewed 07/07/22 unknown) @ 08:42 by Simon Smith MD) (unknown) (no (unknown) (unknown) Father Lung cancer (units (unknown) date) unknown) (unknown) (no (unknown) (unknown) Flonase 50 mcg (units (unknown) date) unknown) (unknown) (no (unknown) (unknown) Flonase PRN Dry (units (unknown) date) Nasal Passages unknown) 07/24/22 (unknown) (no (unknown) (unknown) General (units (unkno wn) date) unknown) (unknown) (no (unknown) (unknown) Globulin (1.7-4.1) (units (unknown) date) g/dL unknown) (unknown) (no (unknown) (unknown) Globulin 3.2 (units (u nknown) date) (1.7-4.1) g/dL unknown) (unknown) (no (unknown) (unknown) Glucose (80-110) (units (unknown) date) mg/dL unknown) (unknown) (no (unknown) (unknown) Glucose 114 H (units ( unknown) date) (80-110) mg/dL unknown) (unknown) (no (unknown) (unknown) H/O hysterectomy (units (unknown) date) with oophorectomy unknown) (unknown) (no (unknown) (unknown) 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 (unknown) (no (unknown) (unknown) HPI - Abdominal (units (unknown) date) Pain unknown) (unknown) (no (unknown) (unknown) HPI narrative: (units (unknown) date) unknown) (unknown) (no (unknown) (unknown) HTN (hypertension) (units (unknown) date) unknown) (unknown) (no (unknown) (unknown) Hct (36-46) % (units ( unknown) date) unknown) (unknown) (no (unknown) (unknown) Hct 44.9 (36-46) % (units (unknown) date) unknown) (unknown) (no (unknown) (unknown) Hgb (12.0-16.0) (units (unknown) date) g/dL unknown) (unknown) (no (unknown) (unknown) Hgb 14.4 (units (unkno wn) date) (12.0-16.0) g/dL unknown) (unknown) (no (unknown) (unknown) History of Present (units (unknown) date) Illness unknown) (unknown) (no (unknown) (unknown) Home Medications (units (unknown) date) unknown) (unknown) (no (unknown) (unknown) Hx of heart artery (units (unknown) date) stent unknown) (unknown) (no (unknown) (unknown) Hyperlipidemia (units (unknown) date) unknown) (unknown) (no (unknown) (unknown) INHALATION PRN (units (unknown) date) (Reason: Shortness unknown) Of Breath Or Wheezing) (unknown) (no (unknown) (unknown) INR (0.9-1.3) (units ( unknown) date) unknown) (unknown) (no (unknown) (unknown) INR 1.1 (0.9-1.3) (units (unknown) date) unknown) (unknown) (no (unknown) (unknown) Ictotest Urine (units (unknown) date) Stat unknown) (unknown) (no (unknown) (unknown) Initial Vital (units ( unknown) date) Signs unknown) (unknown) (no (unknown) (unknown) Initial Vital (units ( unknown) date) Signs: unknown) (unknown) (no (unknown) (unknown) [facility] (units (unknown) date) [address] [place] [address] Street unknown) [place] [address] (unknown) (no (unknown) (unknown) Lab Data (units (unkno wn) date) unknown) (unknown) (no (unknown) (unknown) Lab Results (units (un known) date) unknown) (unknown) (no (unknown) (unknown) Label Comments: (units (unknown) date) unknown) (unknown) (no (unknown) (unknown) Labs: (units (unkno wn) date) unknown) (unknown) (no (unknown) (unknown) Last Admin: (units (un known) date) 12/06/22 12:40 unknown) Dose: 4 mg (unknown) (no (unknown) (unknown) Lipase (23-300) (units (unknown) date) U/L unknown) (unknown) (no (unknown) (unknown) Lipase 79 (23-300) (units (unknown) date) U/L unknown) (unknown) (no (unknown) (unknown) Lipase Stat (units (un known) date) unknown) (unknown) (no (unknown) (unknown) Lymph # (Auto) (units (unknown) date) (6541-9677) /uL unknown) (unknown) (no (unknown) (unknown) Lymph # (Auto) 600 (units (unknown) date) L (8609-8357) /uL unknown) (unknown) (no (unknown) (unknown) Lymph % (Auto) (units (unknown) date) (25-40) % unknown) (unknown) (no (unknown) (unknown) Lymph % (Auto) 5.7 (units (unknown) date) L (25-40) % unknown) (unknown) (no (unknown) (unknown) MCH (26-34) PG (units (unknown) date) unknown) (unknown) (no (unknown) (unknown) MCH 27.1 (26-34) (units (unknown) date) PG unknown) (unknown) (no (unknown) (unknown) MCHC (30-36) % (units (unknown) date) unknown) (unknown) (no (unknown) (unknown) MCHC 32.2 (30-36) (units (unknown) date) % unknown) (unknown) (no (unknown) (unknown) MCV (80-100) fL (units (unknown) date) unknown) (unknown) (no (unknown) (unknown) MCV 84.3 (80-100) (units (unknown) date) fL unknown) (unknown) (no (unknown) (unknown) MDM - Abdominal (units (unknown) date) Pain unknown) (unknown) (no (unknown) (unknown) MDM Narrative (units ( unknown) date) unknown) (unknown) (no (unknown) (unknown) Magnesium (units (unkn own) date) (1.6-2.3) mg/dL unknown) (unknown) (no (unknown) (unknown) Magnesium 1.8 (units ( unknown) date) (1.6-2.3) mg/dL unknown) (unknown) (no (unknown) (unknown) Magnesium Stat (units (unknown) date) unknown) (unknown) (no (unknown) (unknown) Medical History (units (unknown) date) (Updated 08/11/22 @ unknown) 00:01 by ) (unknown) (no (unknown) (unknown) Medical decision (units (unknown) date) making narrative: unknown) (unknown) (no (unknown) (unknown) Medication (units (unk nown) date) Instructions unknown) Recorded Confirmed (unknown) (no (unknown) (unknown) Mode of arrival: (units (unknown) date) Ambulatory unknown) (unknown) (no (unknown) (unknown) Trigg # (Auto) (units ( unknown) date) (0-900) /uL unknown) (unknown) (no (unknown) (unknown) Trigg # (Auto) 500 (units (unknown) date) (0-900) /uL unknown) (unknown) (no (unknown) (unknown) Trigg % (Auto) (units ( unknown) date) (3-14) % unknown) (unknown) (no (unknown) (unknown) Trigg % (Auto) 4.5 (units (unknown) date) (3-14) % unknown) (unknown) (no (unknown) (unknown) Mother COPD (units (un known) date) (chronic unknown) obstructive pulmonary disease) (unknown) (no (unknown) (unknown) Neut # (Auto) (units ( unknown) date) (0414-0648) /uL unknown) (unknown) (no (unknown) (unknown) Neut # (Auto) 9700 (units (unknown) date) H (9175-5140) /uL unknown) (unknown) (no (unknown) (unknown) Neut % (Auto) (units ( unknown) date) (50-75) % unknown) (unknown) (no (unknown) (unknown) Neut % (Auto) 86.7 (units (unknown) date) H (50-75) % unknown) (unknown) (no (unknown) (unknown) No Action (units (unkn own) date) unknown) (unknown) (no (unknown) (unknown) Ondansetron HCl (units (unknown) date) (Ondansetron 4 Mg/2 unknown) Ml Inj) 4 mg IV NOW ONE (unknown) (no (unknown) (unknown) Ordered: (units (unkno wn) date) unknown) (unknown) (no (unknown) (unknown) Orders (units (unkno wn) date) unknown) (unknown) (no (unknown) (unknown) Oxygen Delivery (units (unknown) date) Method 12/06/22 unknown) 12:01 (unknown) (no (unknown) (unknown) Oxygen Delivery (units (unknown) date) Method Room Air unknown) Nasal Cannula (unknown) (no (unknown) (unknown) Oxygen Flow Rate 2 (units (unknown) date) unknown) (unknown) (no (unknown) (unknown) PRN (Reason: Dry (units (unknown) date) Nasal Passages) unknown) (unknown) (no (unknown) (unknown) PT (10.1-12.7) (units (unknown) date) SECONDS unknown) (unknown) (no (unknown) (unknown) PT 12.1 (units (unkno wn) date) (10.1-12.7) SECONDS unknown) (unknown) (no (unknown) (unknown) Pain (units (unkno wn) date) unknown) (unknown) (no (unknown) (unknown) Partial (units (unkno wn) date) Thromboplastin Time unknown) Stat (unknown) (no (unknown) (unknown) Patient History (units (unknown) date) unknown) (unknown) (no (unknown) (unknown) Patient: (units (unkno wn) date) Roselyn Mejia unknown) MR#: [id number] (unknown) (no (unknown) (unknown) Plt Count (units (unkn own) date) (150-400) X103/uL unknown) (unknown) (no (unknown) (unknown) Plt Count 216 (units ( unknown) date) (150-400) X103/uL unknown) (unknown) (no (unknown) (unknown) Point of Care (units ( unknown) date) Testing unknown) (unknown) (no (unknown) (unknown) Point of care (units ( unknown) date) testing: unknown) (unknown) (no (unknown) (unknown) Potassium (units (unkn own) date) (3.4-5.1) mmol/L unknown) (unknown) (no (unknown) (unknown) Potassium 4.6 (units ( unknown) date) (3.4-5.1) mmol/L unknown) (unknown) (no (unknown) (unknown) Prescriptions: (units (unknown) date) unknown) (unknown) (no (unknown) (unknown) Prothrombin Time (units (unknown) date) INR Stat unknown) (unknown) (no (unknown) (unknown) Pulse Oximetry 97 (units (unknown) date) 12/06/22 12:01 unknown) (unknown) (no (unknown) (unknown) Pulse Oximetry 97 (units (unknown) date) 99 unknown) (unknown) (no (unknown) (unknown) Pulse Rate 84 (units ( unknown) date) 12/06/22 12:01 unknown) (unknown) (no (unknown) (unknown) Pulse Rate 84 99 H (units (unknown) date) unknown) (unknown) (no (unknown) (unknown) RBC (4.0-5.2) (units ( unknown) date) X106/uL unknown) (unknown) (no (unknown) (unknown) RBC 5.32 H (units (unk nown) date) (4.0-5.2) X106/uL unknown) (unknown) (no (unknown) (unknown) RDW (11.6-14.8) % (units (unknown) date) unknown) (unknown) (no (unknown) (unknown) RDW 16.6 H (units (unk nown) date) (11.6-14.8) % unknown) (unknown) (no (unknown) (unknown) Referrals: (units (unk nown) date) unknown) (unknown) (no (unknown) (unknown) Related Data (units (u nknown) date) unknown) (unknown) (no (unknown) (unknown) Respiratory Rate (units (unknown) date) 16 12/06/22 12:01 unknown) (unknown) (no (unknown) (unknown) Respiratory Rate (units (unknown) date) 16 18 unknown) (unknown) (no (unknown) (unknown) Robitussin DM To (units (unknown) date) Go 10 ml PO PRN unknown) Cough 07/24/22 (unknown) (no (unknown) (unknown) Robitussin DM To (units (unknown) date) Go unknown) (unknown) (no (unknown) (unknown) Rx Instructions: (units (unknown) date) unknown) (unknown) (no (unknown) (unknown) SARS-CoV-2 (PCR) (units (unknown) date) (Negative) unknown) (unknown) (no (unknown) (unknown) SARS-CoV-2 (PCR) (units (unknown) date) Negative (Negative) unknown) (unknown) (no (unknown) (unknown) Signed By: (units (unk nown) date) unknown) (unknown) (no (unknown) (unknown) Skin (units (unkno wn) date) unknown) (unknown) (no (unknown) (unknown) Smoking Status: (units (unknown) date) Former smoker unknown) (unknown) (no (unknown) (unknown) Social History (units (unknown) date) (Reviewed 07/07/22 unknown) @ 08:42 by Simon Smith MD) (unknown) (no (unknown) (unknown) Sodium (137-145) (units (unknown) date) mmol/L unknown) (unknown) (no (unknown) (unknown) Sodium 139 (units (unk nown) date) (137-145) mmol/L unknown) (unknown) (no (unknown) (unknown) Source: patient (units (unknown) date) unknown) (unknown) (no (unknown) (unknown) Stated Complaint: (units (unknown) date) doesn't feel good unknown) stomach to chest (unknown) (no (unknown) (unknown) Status post (units (un known) date) cholecystectomy unknown) (unknown) (no (unknown) (unknown) Stool Occult Blood (units (unknown) date) Negative unknown) (unknown) (no (unknown) (unknown) Stop: 12/06/22 (units (unknown) date) 12:07 unknown) (unknown) (no (unknown) (unknown) Stop: 12/06/22 (units (unknown) date) 13:16 unknown) (unknown) (no (unknown) (unknown) Substance Use (units ( unknown) date) Type: does not use unknown) (unknown) (no (unknown) (unknown) Sulfa (Sulfonamide (units (unknown) date) Allergy unknown) Intermediate rash Verified 07/26/22 18:34 (unknown) (no (unknown) (unknown) Surgical History (units (unknown) date) (Reviewed 07/07/22 unknown) @ 08:42 by Simon Smith MD) (unknown) (no (unknown) (unknown) TAKE 1 CAPSULE BY (units (unknown) date) MOUTH ONCE DAILY unknown) (unknown) (no (unknown) (unknown) TAKE 1 TABLET BY (units (unknown) date) MOUTH ONCE DAILY IN unknown) THE MORNING (unknown) (no (unknown) (unknown) TAKE 1 TABLET BY (units (unknown) date) MOUTH ONCE DAILY unknown) (unknown) (no (unknown) (unknown) Temperature 98 F (units (unknown) date) 12/06/22 12:01 unknown) (unknown) (no (unknown) (unknown) Temperature 98 F (units (unknown) date) unknown) (unknown) (no (unknown) (unknown) Time Seen by (units (u nknown) date) Provider: 12/06/22 unknown) 12:15 (unknown) (no (unknown) (unknown) Total Bilirubin (units (unknown) date) (0.2-1.3) mg/dL unknown) (unknown) (no (unknown) (unknown) Total Bilirubin (units (unknown) date) 1.1 (0.2-1.3) mg/dL unknown) (unknown) (no (unknown) (unknown) Total Creatine (units (unknown) date) Kinase (30-135) U/L unknown) (unknown) (no (unknown) (unknown) Total Creatine (units (unknown) date) Kinase 50 (30-135) unknown) U/L (unknown) (no (unknown) (unknown) Total Protein (units ( unknown) date) (6.3-8.2) g/dL unknown) (unknown) (no (unknown) (unknown) Total Protein 7.6 (units (unknown) date) (6.3-8.2) g/dL unknown) (unknown) (no (unknown) (unknown) Troponin + CK (units ( unknown) date) Cardiac Panel Stat unknown) (unknown) (no (unknown) (unknown) Troponin I (units (unk nown) date) (0.01-0.034) ng/mL unknown) (unknown) (no (unknown) (unknown) Troponin I 0.021 (units (unknown) date) (0.01-0.034) ng/mL unknown) (unknown) (no (unknown) (unknown) Unstable angina (units (unknown) date) unknown) (unknown) (no (unknown) (unknown) Ur Bilirubin (units (u nknown) date) Confirm (Negative) unknown) (unknown) (no (unknown) (unknown) Ur Bilirubin (units (u nknown) date) Confirm Negative unknown) (Negative) (unknown) (no (unknown) (unknown) Urine Dip (units (unkn own) date) unknown) (unknown) (no (unknown) (unknown) Urine Specific (units (unknown) date) Supply 1.025 unknown) (unknown) (no (unknown) (unknown) Valvular heart (units (unknown) date) disease unknown) (unknown) (no (unknown) (unknown) Vital Signs - 8 hr (units (unknown) date) unknown) (unknown) (no (unknown) (unknown) Vital Signs (units (un known) date) unknown) (unknown) (no (unknown) (unknown) Vital signs: (units (u nknown) date) unknown) (unknown) (no (unknown) (unknown) WBC (4.5-11.0) (units (unknown) date) X103/uL unknown) (unknown) (no (unknown) (unknown) WBC 11.2 H (units (unk nown) date) (4.5-11.0) X103/uL unknown) (unknown) (no (unknown) (unknown) Katy Salazar, (units (unknown) date) 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 [Primary Care unknown) Provider] (unknown) (no (unknown) (unknown) XR chest 1V Stat (units (unknown) date) unknown) (unknown) (no (unknown) (unknown) [Embedded Image (units (unknown) date) Not Available] unknown) (unknown) (no (unknown) (unknown) [From Bactrim] (units (unknown) date) unknown) (unknown) (no (unknown) (unknown) [From Trilipix] (units (unknown) date) Upset unknown) (unknown) (no (unknown) (unknown) acarbose Allergy (units (unknown) date) Intermediate unknown) Abdominal Verified 07/26/22 18:34 (unknown) (no (unknown) (unknown) albuterol 90 (units (u nknown) date) mcg/actuation unknown) Aerosol (unknown) (no (unknown) (unknown) albuterol 90 (units (u nknown) date) mcg/actuation unknown) aerosol 90 mcg inhalation PRN Shortness Of 07/24/22 (unknown) (no (unknown) (unknown) alcohol intake (units (unknown) date) frequency: 0-2 unknown) drinks per day (unknown) (no (unknown) (unknown) alcohol intake: (units (unknown) date) never unknown) (unknown) (no (unknown) (unknown) amlodipine Allergy (units (unknown) date) Intermediate unknown) Verified 07/26/22 18:34 (unknown) (no (unknown) (unknown) aspirin 81 MG (units ( unknown) date) tablet,delayed unknown) release (DR/EC) (unknown) (no (unknown) (unknown) aspirin 81 mg (units ( unknown) date) tablet,delayed 81 unknown) mg PO QDAY ##0 09/14/17 07/24/22 (unknown) (no (unknown) (unknown) atorvastatin 20 mg (units (unknown) date) tablet (Lipitor) 40 unknown) mg PO QPM 07/08/22 07/24/22 (unknown) (no (unknown) (unknown) atorvastatin (units (u nknown) date) [Lipitor] 20 mg unknown) tablet (unknown) (no (unknown) (unknown) budesonide [From (units (unknown) date) Symbicort] Allergy unknown) Mild Anxiety Verified 07/26/22 18:34 (unknown) (no (unknown) (unknown) capsule,extended (units (unknown) date) release 24 hr unknown) (unknown) (no (unknown) (unknown) carvedilol Allergy (units (unknown) date) Mild Rash Verified unknown) 07/26/22 18:34 (unknown) (no (unknown) (unknown) chlorthalidone (units (unknown) date) Allergy unknown) Intermediate Redness of Verified 07/26/22 18:34 (unknown) (no (unknown) (unknown) choline (units (unkno wn) date) fenofibrate Allergy unknown) Mild Gastrointestinal Verified 07/26/22 18:34 (unknown) (no (unknown) (unknown) clopidogrel 75 mg (units (unknown) date) tablet 75 mg PO QAM unknown) 07/24/22 07/24/22 (unknown) (no (unknown) (unknown) clopidogrel 75 mg (units (unknown) date) tablet unknown) (unknown) (no (unknown) (unknown) constipation. (units ( unknown) date) unknown) (unknown) (no (unknown) (unknown) cyclobenzaprine 10 (units (unknown) date) mg Tablet unknown) (unknown) (no (unknown) (unknown) cyclobenzaprine 10 (units (unknown) date) mg tablet 10 mg PO unknown) TID PRN Muscle Spasm 07/24/22 07/24/22 (unknown) (no (unknown) (unknown) diarrhea. Concern (units (unknown) date) for ACS versus unknown) gastroenteritis versus dehydration versus (unknown) (no (unknown) (unknown) diltiazem HCl 120 (units (unknown) date) mg 120 mg PO QAM unknown) 07/08/22 07/24/22 (unknown) (no (unknown) (unknown) diltiazem HCl (units ( unknown) date) [Cartia XT] 120 mg unknown) capsule,extended release 24hr (unknown) (no (unknown) (unknown) doxazosin [From (units (unknown) date) Cardura] Allergy unknown) Intermediate Rash Verified 07/26/22 18:34 (unknown) (no (unknown) (unknown) doxycycline (units (un known) date) Allergy unknown) Intermediate Rash Verified 07/26/22 18:34 (unknown) (no (unknown) (unknown) formoterol [From (units (unknown) date) Symbicort] Allergy unknown) Mild Anxiety Verified 07/26/22 18:34 (unknown) (no (unknown) (unknown) furosemide 40 mg (units (unknown) date) tablet 40 mg PO QAM unknown) 07/08/22 07/08/22 (unknown) (no (unknown) (unknown) furosemide 40 mg (units (unknown) date) tablet unknown) (unknown) (no (unknown) (unknown) gemfibrozil (units (un known) date) Allergy unknown) Intermediate Rash Verified 07/26/22 18:34 (unknown) (no (unknown) (unknown) history of (units (unk nown) date) constipation. unknown) Patient states that she more often has diarrhea than (unknown) (no (unknown) (unknown) household members: (units (unknown) date) family and children unknown) (unknown) (no (unknown) (unknown) inhaler Breath (units (unknown) date) unknown) (unknown) (no (unknown) (unknown) ipratropium 0.5 (units (unknown) date) mg-albuterol 3 mg unknown) ml inhalation PRN Shortness Of 07/24/22 (unknown) (no (unknown) (unknown) ipratropium-albute (units (unknown) date) rol 0.5 mg-3 mg(2.5 unknown) mg base)/3 mL solution for nebulization (unknown) (no (unknown) (unknown) isosorbide (units (unk nown) date) mononitrate 120 mg unknown) 120 mg PO QAM 07/08/22 07/24/22 (unknown) (no (unknown) (unknown) isosorbide (units (unk nown) date) mononitrate 120 mg unknown) tablet extended release 24 hr (unknown) (no (unknown) (unknown) levofloxacin (units (u nknown) date) Allergy unknown) Intermediate Rash Verified 07/26/22 18:34 (unknown) (no (unknown) (unknown) levothyroxine 88 (units (unknown) date) mcg tablet 88 mcg unknown) PO QAM 07/08/22 07/24/22 (unknown) (no (unknown) (unknown) levothyroxine 88 (units (unknown) date) mcg tablet unknown) (unknown) (no (unknown) (unknown) lisinopril 40 mg (units (unknown) date) tablet 20 mg PO QAM unknown) 07/08/22 07/24/22 (unknown) (no (unknown) (unknown) lisinopril 40 mg (units (unknown) date) tablet unknown) (unknown) (no (unknown) (unknown) losartan Allergy (units (unknown) date) Intermediate Rash unknown) Verified 07/26/22 18:34 (unknown) (no (unknown) (unknown) metoprolol AdvReac (units (unknown) date) Intermediate unknown) Verified 07/26/22 18:34 (unknown) (no (unknown) (unknown) metoprolol (units (unk nown) date) succinate 25 mg 25 unknown) mg PO DAILY 07/24/22 07/24/22 (unknown) (no (unknown) (unknown) metoprolol (units (unk nown) date) succinate 25 mg unknown) tablet extended release 24 hr (unknown) (no (unknown) (unknown) montelukast [From (units (unknown) date) Singulair] Allergy unknown) Intermediate Difficulty Verified 07/26/22 (unknown) (no (unknown) (unknown) morning (units (unkno wn) date) unknown) (unknown) (no (unknown) (unknown) multivitamin 1 tab (units (unknown) date) PO DAILY 09/10/18 unknown) 07/24/22 (unknown) (no (unknown) (unknown) multivitamin (units (u nknown) date) Tablet,Chewable unknown) (unknown) (no (unknown) (unknown) nifedipine Allergy (units (unknown) date) Intermediate Chills unknown) Verified 07/26/22 18:34 (unknown) (no (unknown) (unknown) nitroglycerin 0.4 (units (unknown) date) mg sublingual 0.4 unknown) mg sublingual Q5-15M PRN Chest 09/10/18 (unknown) (no (unknown) (unknown) nitroglycerin (units ( unknown) date) [Nitrostat] 0.4 mg unknown) Tablet, Sublingual (unknown) (no (unknown) (unknown) of breath, (units (unk nown) date) dysuria, unknown) lightheadedness, dizziness, syncope. Patient states that (unknown) (no (unknown) (unknown) omega (units (unkno wn) date) 8-ybd-tys-fish oil unknown) 1,000 mg 1,000 mg PO DAILY 09/10/18 07/24/22 (unknown) (no (unknown) (unknown) omega (units (unkno wn) date) 8-cle-vfd-fish oil unknown) [Fish Oil] 1,000 mg (120 mg-180 mg) Capsule (unknown) (no (unknown) (unknown) other (units (unkno wn) date) intra-abdominal unknown) pathology. Will obtain labs, lipase, troponin, BNP, chest (unknown) (no (unknown) (unknown) patient states she (units (unknown) date) forgets to take unknown) (unknown) (no (unknown) (unknown) presents to the ED (units (unknown) date) with 1 day of unknown) abdominal pain. Patient states she is feeling (unknown) (no (unknown) (unknown) presents to the ED (units (unknown) date) with 1 day of unknown) abdominal pain. 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 unknown) d/c 07/14/22 (unknown) (no (unknown) (unknown) release (units (unkno wn) date) unknown) (unknown) (no (unknown) (unknown) rest in her car (units (unknown) date) for a little bit unknown) but felt worse. Patient drove herself to the (unknown) (no (unknown) (unknown) she ate some salad (units (unknown) date) any bread stick at unknown) [employer] yesterday. Patient denies a (unknown) (no (unknown) (unknown) soln (units (unkno wn) date) unknown) (unknown) (no (unknown) (unknown) sulfamethoxazole (units (unknown) date) Allergy unknown) Intermediate Rash Verified 07/26/22 18:34 (unknown) (no (unknown) (unknown) tablet (Nitrostat) (units (unknown) date) Pain unknown) (unknown) (no (unknown) (unknown) tablet,extended (units (unknown) date) release 24 hr unknown) (unknown) (no (unknown) (unknown) that she had no (units (unknown) date) other symptoms unknown) including fevers, chills, chest pain, shortness (unknown) (no (unknown) (unknown) tobacco type: (units ( unknown) date) cigarettes unknown) (unknown) (no (unknown) (unknown) torsemide 20 mg (units (unknown) date) Tablet unknown) (unknown) (no (unknown) (unknown) torsemide 20 mg (units (unknown) date) tablet 20 mg PO unknown) DAILY 07/24/22 07/24/22 (unknown) (no (unknown) (unknown) trimethoprim [From (units (unknown) date) Bactrim] Allergy unknown) Intermediate Rash Verified 07/26/22 18:34 (unknown) (no (unknown) (unknown) up feeling fine, (units (unknown) date) went to [employer] unknown) study, it a little bit of fruit including (unknown) (no (unknown) (unknown) vitamin E 268 mg (units (unknown) date) (400 unit) capsule unknown) 400 unit PO DAILY 09/10/18 07/24/22 (unknown) (no (unknown) (unknown) vitamin E 400 unit (units (unknown) date) Capsule unknown) (unknown) (no (unknown) (unknown) watermelon, (units (un known) date) grapes, unknown) blackberries, felt uncomfortable in her abdomen, tried to (unknown) (no (unknown) (unknown) well and (units (unkno wn) date) symptom-free after unknown) she had a massive bout of emesis and watery (unknown) (no (unknown) (unknown) x-ray, EKG, CT (units (unknown) date) abdomen pelvis. unknown) Result panel [id number] (unknown) (no (unknown) (unknown) (no value) (units (unk nown) date) unknown) (unknown) (no (unknown) (unknown) (120 mg-180 mg) (units (unknown) date) capsule (Fish Oil) unknown) (unknown) (no (unknown) (unknown) (2.5 mg base)/3 mL (units (unknown) date) nebulization Breath unknown) Or Wheezing (unknown) (no (unknown) (unknown) (Cartia XT) (units (un known) date) unknown) (unknown) (no (unknown) (unknown) 0.4 mg SUBLINGUAL (units (unknown) date) Q5-15M PRN (Reason: unknown) Chest Pain) (unknown) (no (unknown) (unknown) 12/06/22 12/06/22 (units (unknown) date) 12/06/22 unknown) Range/Units (unknown) (no (unknown) (unknown) 12/06/22 12/06/22 (units (unknown) date) Range/Units unknown) (unknown) (no (unknown) (unknown) 12/06/22 12:07 (units (unknown) date) unknown) (unknown) (no (unknown) (unknown) 12/06/22 12:10 (units (unknown) date) unknown) (unknown) (no (unknown) (unknown) 12/06/22 12:25 (units (unknown) date) unknown) (unknown) (no (unknown) (unknown) 12/06/22 12:34 (units (unknown) date) unknown) (unknown) (no (unknown) (unknown) 12/06/22 12:52 (units (unknown) date) unknown) (unknown) (no (unknown) (unknown) 12/06/22 (units (unkno wn) date) unknown) (unknown) (no (unknown) (unknown) [id number] (units (unkno wn) date) unknown) (unknown) (no (unknown) (unknown) 07/24/22 (units (unkno wn) date) unknown) (unknown) (no (unknown) (unknown) 1 tab PO DAILY (units (unknown) date) unknown) (unknown) (no (unknown) (unknown) 1,000 mg PO DAILY (units (unknown) date) unknown) (unknown) (no (unknown) (unknown) 10 mg PO TID PRN (units (unknown) date) (Reason: Muscle unknown) Spasm) (unknown) (no (unknown) (unknown) 10 ml PO PRN (units (u nknown) date) (Reason: Cough) unknown) (unknown) (no (unknown) (unknown) 10-100mg/5ml (units (u nknown) date) liquid. take 10ml unknown) by mouth every 4 hrs as needed for cough (unknown) (no (unknown) (unknown) 120 mg PO QAM (units ( unknown) date) unknown) (unknown) (no (unknown) (unknown) 12:01 12/06/22 (units (unknown) date) unknown) (unknown) (no (unknown) (unknown) 12:25 12:34 12:34 (units (unknown) date) unknown) (unknown) (no (unknown) (unknown) 12:30 12/06/22 (units (unknown) date) unknown) (unknown) (no (unknown) (unknown) 12:30 (units (unkno wn) date) unknown) (unknown) (no (unknown) (unknown) 12:34 12:34 (units (un known) date) unknown) (unknown) (no (unknown) (unknown) 18:34 (units (unkno wn) date) unknown) (unknown) (no (unknown) (unknown) 20 mg PO DAILY (units (unknown) date) unknown) (unknown) (no (unknown) (unknown) 20 mg PO QAM (units (u nknown) date) unknown) (unknown) (no (unknown) (unknown) 25 mg PO DAILY (units (unknown) date) unknown) (unknown) (no (unknown) (unknown) 40 mg PO QAM (units (u nknown) date) unknown) (unknown) (no (unknown) (unknown) 40 mg PO QPM (units (u nknown) date) unknown) (unknown) (no (unknown) (unknown) 400 unit PO DAILY (units (unknown) date) unknown) (unknown) (no (unknown) (unknown) 75 mg PO QAM (units (u nknown) date) unknown) (unknown) (no (unknown) (unknown) 81 mg PO QDAY Qty: (units (unknown) date) 0 unknown) (unknown) (no (unknown) (unknown) 86-year-old female (units (unknown) date) with past medical unknown) history NSTEMI, CHF, COPD, hypertension (unknown) (no (unknown) (unknown) 88 mcg PO QAM (units ( unknown) date) unknown) (unknown) (no (unknown) (unknown) 90 mcg INHALATION (units (unknown) date) PRN (Reason: unknown) Shortness Of Breath) (unknown) (no (unknown) (unknown) ALT (<35) IU/L (units (unknown) date) unknown) (unknown) (no (unknown) (unknown) ALT 21 (<35) IU/L (units (unknown) date) unknown) (unknown) (no (unknown) (unknown) APTT (26-36) (units (u nknown) date) SECONDS unknown) (unknown) (no (unknown) (unknown) APTT 33 (26-36) (units (unknown) date) SECONDS unknown) (unknown) (no (unknown) (unknown) AST (14-36) IU/L (units (unknown) date) unknown) (unknown) (no (unknown) (unknown) AST 30 (14-36) (units (unknown) date) IU/L unknown) (unknown) (no (unknown) (unknown) Abdomen is soft, (units (unknown) date) nondistended. unknown) Abdomen is diffusely tender to palpation. No CVA (unknown) (no (unknown) (unknown) Age/Sex: 86 / F (units (unknown) date) unknown) (unknown) (no (unknown) (unknown) Albumin (3.5-5.0) (units (unknown) date) g/dL unknown) (unknown) (no (unknown) (unknown) Albumin 4.4 (units (un known) date) (3.5-5.0) g/dL unknown) (unknown) (no (unknown) (unknown) Albumin/Globulin (units (unknown) date) Ratio (1.0-2.8) unknown) (unknown) (no (unknown) (unknown) Albumin/Globulin (units (unknown) date) Ratio 1.4 (1.0-2.8) unknown) (unknown) (no (unknown) (unknown) Alkaline (units (unkno wn) date) Phosphatase unknown) (38-126) U/L (unknown) (no (unknown) (unknown) Alkaline (units (unkno wn) date) Phosphatase 81 unknown) (38-126) U/L (unknown) (no (unknown) (unknown) Allergic/Immunolog (units (unknown) date) ic unknown) (unknown) (no (unknown) (unknown) Allergic/Immunolog (units (unknown) date) ic: Denies unknown) urticaria, Denies throat swelling and Denies (unknown) (no (unknown) (unknown) Allergies (units (unkn own) date) unknown) (unknown) (no (unknown) (unknown) Allergy/AdvReac (units (unknown) date) Type Severity unknown) Reaction Status Date / Time (unknown) (no (unknown) (unknown) 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 (unknown) (no (unknown) (unknown) Antibiotics) (units (u nknown) date) unknown) (unknown) (no (unknown) (unknown) Aspirin (Aspirin (units (unknown) date) 81 Mg Chew Tab) 324 unknown) mg PO NOW ONE (unknown) (no (unknown) (unknown) Auscultation:?zheng (units (unknown) date) r to auscultation unknown) bilaterally (unknown) (no (unknown) (unknown) BNP [NT-proBNP (units (unknown) date) (BNP-Adult 18+)] unknown) Stat (unknown) (no (unknown) (unknown) BUN (7-17) mg/dL (units (unknown) date) unknown) (unknown) (no (unknown) (unknown) BUN 20 H (7-17) (units (unknown) date) mg/dL unknown) (unknown) (no (unknown) (unknown) BUN/Creatinine (units (unknown) date) Ratio (6-22) unknown) (unknown) (no (unknown) (unknown) BUN/Creatinine (units (unknown) date) Ratio 23.5 H (6-22) unknown) (unknown) (no (unknown) (unknown) Baso # (Auto) (units ( unknown) date) (0-100) /uL unknown) (unknown) (no (unknown) (unknown) Baso # (Auto) 0 (units (unknown) date) (0-100) /uL unknown) (unknown) (no (unknown) (unknown) Baso % (Auto) (units ( unknown) date) (0-2) % unknown) (unknown) (no (unknown) (unknown) Baso % (Auto) 0.4 (units (unknown) date) (0-2) % unknown) (unknown) (no (unknown) (unknown) Bedside Urine (units ( unknown) date) Bilirubin + 1 unknown) (unknown) (no (unknown) (unknown) Bedside Urine (units ( unknown) date) Glucose Negative unknown) (unknown) (no (unknown) (unknown) Bedside Urine (units ( unknown) date) Ketone - Negative unknown) (unknown) (no (unknown) (unknown) Bedside Urine (units ( unknown) date) Leukocytes - unknown) Negative (unknown) (no (unknown) (unknown) Bedside Urine (units ( unknown) date) Nitrite - Negative unknown) (unknown) (no (unknown) (unknown) Bedside Urine (units ( unknown) date) Occult Blood - unknown) Negative (unknown) (no (unknown) (unknown) Bedside Urine (units ( unknown) date) Protein - Negative unknown) (unknown) (no (unknown) (unknown) Bedside Urine (units ( unknown) date) Urobilinogen - unknown) Negative (unknown) (no (unknown) (unknown) Bedside Urine pH 6 (units (unknown) date) unknown) (unknown) (no (unknown) (unknown) 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 unknown) (unknown) (no (unknown) (unknown) Blood Pressure (units (unknown) date) 140/70 12/06/22 unknown) 12:01 (unknown) (no (unknown) (unknown) Blood Pressure (units (unknown) date) 140/70 141/94 H unknown) (unknown) (no (unknown) (unknown) Breathing (units (unkn own) date) unknown) (unknown) (no (unknown) (unknown) 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) unknown) (unknown) (no (unknown) (unknown) CK-MB (CK-2) Rel (units (unknown) date) Index TNP unknown) (unknown) (no (unknown) (unknown) CK-MB (CK-2) Rel (units (unknown) date) Index unknown) (unknown) (no (unknown) (unknown) CK-MB (CK-2) TNP (units (unknown) date) unknown) (unknown) (no (unknown) (unknown) CK-MB (CK-2) (units (u nknown) date) unknown) 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 (unknown) (no (unknown) (unknown) COVID19 -Nasal (units (unknown) date) RAPID/Pre-Proc Stat unknown) (unknown) (no (unknown) (unknown) Calcium (8.4-10.2) (units (unknown) date) mg/dL unknown) (unknown) (no (unknown) (unknown) Calcium 10.4 H (units (unknown) date) (8.4-10.2) mg/dL unknown) (unknown) (no (unknown) (unknown) Carbon Dioxide (units (unknown) date) (22-32) mmol/L unknown) (unknown) (no (unknown) (unknown) Carbon Dioxide 32 (units (unknown) date) (22-32) mmol/L unknown) (unknown) (no (unknown) (unknown) Cardio (units (unkno wn) date) unknown) (unknown) (no (unknown) (unknown) Cardiovascular (units (unknown) date) unknown) (unknown) (no (unknown) (unknown) Cardiovascular: (units (unknown) date) Denies chest pain, unknown) Denies irregular heart rhythm, Denies (unknown) (no (unknown) (unknown) Chief Complaint: (units (unknown) date) Chest Pain unknown) (unknown) (no (unknown) (unknown) Chloride (98-107) (units (unknown) date) mmol/L unknown) (unknown) (no (unknown) (unknown) Chloride 98 (units (un known) date) (98-107) mmol/L unknown) (unknown) (no (unknown) (unknown) Complete Blood (units (unknown) date) Count AUTO DIFF unknown) Stat (unknown) (no (unknown) (unknown) Comprehensive (units ( unknown) date) Metabolic Panel unknown) Stat (unknown) (no (unknown) (unknown) Const (units (unkno wn) date) unknown) (unknown) (no (unknown) (unknown) Constitutional (units (unknown) date) unknown) (unknown) (no (unknown) (unknown) Constitutional: (units (unknown) date) Denies chills, unknown) Reports fatigue, Denies fever(s), Denies frequent (unknown) (no (unknown) (unknown) Course (units (unkno wn) date) unknown) (unknown) (no (unknown) (unknown) Creatinine (units (unk nown) date) (0.52-1.04) mg/dL unknown) (unknown) (no (unknown) (unknown) Creatinine 0.85 (units (unknown) date) (0.52-1.04) mg/dL unknown) (unknown) (no (unknown) (unknown) : 1935 (units (unknown) date) Acct:[id number] unknown) (unknown) (no (unknown) (unknown) Date of Service: (units (unknown) date) 12/06/22 unknown) (unknown) (no (unknown) (unknown) Denies frequent (units (unknown) date) falls, Denies loss unknown) of vision, Denies numbness, Denies tingling (unknown) (no (unknown) (unknown) Denies loss of (units (unknown) date) vision unknown) (unknown) (no (unknown) (unknown) Denies numbness (units (unknown) date) and Denies tingling unknown) (unknown) (no (unknown) (unknown) Departure (units (unkn own) date) unknown) (unknown) (no (unknown) (unknown) Discharge Plan (units (unknown) date) unknown) (unknown) (no (unknown) (unknown) Discontinued (units (u nknown) date) Medications unknown) (unknown) (no (unknown) (unknown) Documented By: KB (units (unknown) date) unknown) (unknown) (no (unknown) (unknown) ED Orders (units (unkn own) date) unknown) (unknown) (no (unknown) (unknown) ED, had a massive (units (unknown) date) bout of emesis and unknown) watery diarrhea in the ED. Patient states (unknown) (no (unknown) (unknown) EKG-12 Lead Stat (units (unknown) date) unknown) (unknown) (no (unknown) (unknown) ENT (units (unkno wn) date) unknown) (unknown) (no (unknown) (unknown) ER Physician: (units ( unknown) date) Vineet,Hyma P.A-C unknown) (unknown) (no (unknown) (unknown) Ears, Nose, Mouth, (units (unknown) date) and Throat: Denies unknown) change in voice, Denies dizziness, Denies (unknown) (no (unknown) (unknown) Ears:?hearing (units ( unknown) date) grossly normal unknown) bilaterally (unknown) (no (unknown) (unknown) Effort + (units (unkno wn) date) Inspection:?normal unknown) respiratory effort (unknown) (no (unknown) (unknown) Elevated TSH (units (u nknown) date) unknown) (unknown) (no (unknown) (unknown) Emergency Report (units (unknown) date) unknown) (unknown) (no (unknown) (unknown) Endocrine (units (unkn own) date) unknown) (unknown) (no (unknown) (unknown) Endocrine: Reports (units (unknown) date) fatigue, Denies unknown) flushing and Denies palpitations (unknown) (no (unknown) (unknown) Eos # (Auto) (units (u nknown) date) (0-450) /uL unknown) (unknown) (no (unknown) (unknown) Eos # (Auto) 300 (units (unknown) date) (0-450) /uL unknown) (unknown) (no (unknown) (unknown) Eos % (Auto) (2-4) (units (unknown) date) % unknown) (unknown) (no (unknown) (unknown) Eos % (Auto) 2.7 (units (unknown) date) (2-4) % unknown) (unknown) (no (unknown) (unknown) Esterase (units (unkno wn) date) unknown) (unknown) (no (unknown) (unknown) Estimated GFR > 60 (units (unknown) date) (>60) mL/min unknown) (unknown) (no (unknown) (unknown) Estimated GFR (units ( unknown) date) (>60) mL/min unknown) (unknown) (no (unknown) (unknown) Exam Narrative: (units (unknown) date) unknown) (unknown) (no (unknown) (unknown) Exam (units (unkno wn) date) unknown) (unknown) (no (unknown) (unknown) Eyes (units (unkno wn) date) unknown) (unknown) (no (unknown) (unknown) Eyes: Denies (units (u nknown) date) change in vision, unknown) Denies eye discharge, Denies irritation and (unknown) (no (unknown) (unknown) Face and (units (unkno wn) date) sinus:?normal unknown) facial exam and sinuses nontender (unknown) (no (unknown) (unknown) Family History (units (unknown) date) (Reviewed 12/06/22 unknown) @ 13:43 by Farshad Manley PA-C) (unknown) (no (unknown) (unknown) Father Lung cancer (units (unknown) date) unknown) (unknown) (no (unknown) (unknown) Flonase 50 mcg (units (unknown) date) unknown) (unknown) (no (unknown) (unknown) Flonase PRN Dry (units (unknown) date) Nasal Passages unknown) 07/24/22 (unknown) (no (unknown) (unknown) GI (units (unkno wn) date) unknown) (unknown) (no (unknown) (unknown) Gastrointestinal (units (unknown) date) unknown) (unknown) (no (unknown) (unknown) Gastrointestinal: (units (unknown) date) Reports abdominal unknown) pain, Denies change in bowel habits, Reports (unknown) (no (unknown) (unknown) General (units (unkno wn) date) unknown) (unknown) (no (unknown) (unknown) General:?appearanc (units (unknown) date) e normal, both eyes unknown) and all related structures (unknown) (no (unknown) (unknown) General:?cooperati (units (unknown) date) ve, healthy unknown) appearing and comfortable (unknown) (no (unknown) (unknown) General:?patient (units (unknown) date) alert, patient unknown) awake and patient oriented x3 (unknown) (no (unknown) (unknown) Genitourinary (units ( unknown) date) unknown) (unknown) (no (unknown) (unknown) Genitourinary: (units (unknown) date) Denies hematuria, unknown) Denies flank pain, Denies urinary incontinence (unknown) (no (unknown) (unknown) Globulin (1.7-4.1) (units (unknown) date) g/dL unknown) (unknown) (no (unknown) (unknown) Globulin 3.2 (units (u nknown) date) (1.7-4.1) g/dL unknown) (unknown) (no (unknown) (unknown) Glucose (80-110) (units (unknown) date) mg/dL unknown) (unknown) (no (unknown) (unknown) Glucose 114 H (units ( unknown) date) (80-110) mg/dL unknown) (unknown) (no (unknown) (unknown) H/O hysterectomy (units (unknown) date) with oophorectomy unknown) (unknown) (no (unknown) (unknown) 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 (unknown) (no (unknown) (unknown) HENMT (units (unkno wn) date) unknown) (unknown) (no (unknown) (unknown) HPI - Abdominal (units (unknown) date) Pain unknown) (unknown) (no (unknown) (unknown) HPI narrative: (units (unknown) date) unknown) (unknown) (no (unknown) (unknown) HTN (hypertension) (units (unknown) date) unknown) (unknown) (no (unknown) (unknown) Hct (36-46) % (units ( unknown) date) unknown) (unknown) (no (unknown) (unknown) Hct 44.9 (36-46) % (units (unknown) date) unknown) (unknown) (no (unknown) (unknown) Head:?normal to (units (unknown) date) inspection unknown) (unknown) (no (unknown) (unknown) Hematologic/Lympha (units (unknown) date) tic unknown) (unknown) (no (unknown) (unknown) Hematologic/Lympha (units (unknown) date) tic: Denies easy unknown) bruising (unknown) (no (unknown) (unknown) Hgb (12.0-16.0) (units (unknown) date) g/dL unknown) (unknown) (no (unknown) (unknown) Hgb 14.4 (units (unkno wn) date) (12.0-16.0) g/dL unknown) (unknown) (no (unknown) (unknown) History of Present (units (unknown) date) Illness unknown) (unknown) (no (unknown) (unknown) Home Medications (units (unknown) date) unknown) (unknown) (no (unknown) (unknown) Hx of heart artery (units (unknown) date) stent unknown) (unknown) (no (unknown) (unknown) Hyperlipidemia (units (unknown) date) unknown) (unknown) (no (unknown) (unknown) INHALATION PRN (units (unknown) date) (Reason: Shortness unknown) Of Breath Or Wheezing) (unknown) (no (unknown) (unknown) INR (0.9-1.3) (units ( unknown) date) unknown) (unknown) (no (unknown) (unknown) INR 1.1 (0.9-1.3) (units (unknown) date) unknown) (unknown) (no (unknown) (unknown) Ictotest Urine (units (unknown) date) Stat unknown) (unknown) (no (unknown) (unknown) Initial Vital (units ( unknown) date) Signs unknown) (unknown) (no (unknown) (unknown) Initial Vital (units ( unknown) date) Signs: unknown) (unknown) (no (unknown) (unknown) Integumentary/Ruthy (units (unknown) date) sts unknown) (unknown) (no (unknown) (unknown) [facility] (units (unknown) date) [address] [place] [address] [place] [address] (unknown) (no (unknown) (unknown) Lab Data (units (unkno wn) date) unknown) (unknown) (no (unknown) (unknown) Lab Results (units (un known) date) unknown) (unknown) (no (unknown) (unknown) Label Comments: (units (unknown) date) unknown) (unknown) (no (unknown) (unknown) Labs: (units (unkno wn) date) unknown) (unknown) (no (unknown) (unknown) Last Admin: (units (un known) date) 12/06/22 12:40 unknown) Dose: 4 mg (unknown) (no (unknown) (unknown) Lipase (23-300) (units (unknown) date) U/L unknown) (unknown) (no (unknown) (unknown) Lipase 79 (23-300) (units (unknown) date) U/L unknown) (unknown) (no (unknown) (unknown) Lipase Stat (units (un known) date) unknown) (unknown) (no (unknown) (unknown) Lymph # (Auto) (units (unknown) date) (7488-7662) /uL unknown) (unknown) (no (unknown) (unknown) Lymph # (Auto) 600 (units (unknown) date) L (1407-7744) /uL unknown) (unknown) (no (unknown) (unknown) Lymph % (Auto) (units (unknown) date) (25-40) % unknown) (unknown) (no (unknown) (unknown) Lymph % (Auto) 5.7 (units (unknown) date) L (25-40) % unknown) (unknown) (no (unknown) (unknown) MCH (26-34) PG (units (unknown) date) unknown) (unknown) (no (unknown) (unknown) MCH 27.1 (26-34) (units (unknown) date) PG unknown) (unknown) (no (unknown) (unknown) MCHC (30-36) % (units (unknown) date) unknown) (unknown) (no (unknown) (unknown) MCHC 32.2 (30-36) (units (unknown) date) % unknown) (unknown) (no (unknown) (unknown) MCV (80-100) fL (units (unknown) date) unknown) (unknown) (no (unknown) (unknown) MCV 84.3 (80-100) (units (unknown) date) fL unknown) (unknown) (no (unknown) (unknown) MDM - Abdominal (units (unknown) date) Pain unknown) (unknown) (no (unknown) (unknown) MDM Narrative (units ( unknown) date) unknown) (unknown) (no (unknown) (unknown) Magnesium (units (unkn own) date) (1.6-2.3) mg/dL unknown) (unknown) (no (unknown) (unknown) Magnesium 1.8 (units ( unknown) date) (1.6-2.3) mg/dL unknown) (unknown) (no (unknown) (unknown) Magnesium Stat (units (unknown) date) unknown) (unknown) (no (unknown) (unknown) Medical History (units (unknown) date) (Reviewed 12/06/22 unknown) @ 13:43 by Farshad Manley PA-C) (unknown) (no (unknown) (unknown) Medical decision (units (unknown) date) making narrative: unknown) (unknown) (no (unknown) (unknown) Medication (units (unk nown) date) Instructions unknown) Recorded Confirmed (unknown) (no (unknown) (unknown) Mode of arrival: (units (unknown) date) Ambulatory unknown) (unknown) (no (unknown) (unknown) Trigg # (Auto) (units ( unknown) date) (0-900) /uL unknown) (unknown) (no (unknown) (unknown) Trigg # (Auto) 500 (units (unknown) date) (0-900) /uL unknown) (unknown) (no (unknown) (unknown) Trigg % (Auto) (units ( unknown) date) (3-14) % unknown) (unknown) (no (unknown) (unknown) Trigg % (Auto) 4.5 (units (unknown) date) (3-14) % unknown) (unknown) (no (unknown) (unknown) Mother COPD (units (un known) date) (chronic unknown) obstructive pulmonary disease) (unknown) (no (unknown) (unknown) Mouth:?oral (units (un known) date) mucosae normal unknown) (unknown) (no (unknown) (unknown) Musculoskeletal (units (unknown) date) unknown) (unknown) (no (unknown) (unknown) Musculoskeletal: (units (unknown) date) Denies back pain, unknown) Denies muscle weakness, Denies neck pain, (unknown) (no (unknown) (unknown) Narrative (units (unkn own) date) unknown) (unknown) (no (unknown) (unknown) Neck (units (unkno wn) date) unknown) (unknown) (no (unknown) (unknown) Neck:?normal (units (u nknown) date) visual inspection unknown) and no lymphadenopathy noted (unknown) (no (unknown) (unknown) Neuro (units (unkno wn) date) unknown) (unknown) (no (unknown) (unknown) Neurologic (units (unk nown) date) unknown) (unknown) (no (unknown) (unknown) Neurologic: Denies (units (unknown) date) behavioral changes, unknown) Denies confusion, Denies dizziness, (unknown) (no (unknown) (unknown) Neut # (Auto) (units ( unknown) date) (1553-9127) /uL unknown) (unknown) (no (unknown) (unknown) Neut # (Auto) 9700 (units (unknown) date) H (7508-4352) /uL unknown) (unknown) (no (unknown) (unknown) Neut % (Auto) (units ( unknown) date) (50-75) % unknown) (unknown) (no (unknown) (unknown) Neut % (Auto) 86.7 (units (unknown) date) H (50-75) % unknown) (unknown) (no (unknown) (unknown) No Action (units (unkn own) date) unknown) (unknown) (no (unknown) (unknown) Nose:?external (units (unknown) date) nose normal unknown) (unknown) (no (unknown) (unknown) Ondansetron HCl (units (unknown) date) (Ondansetron 4 Mg/2 unknown) Ml Inj) 4 mg IV NOW ONE (unknown) (no (unknown) (unknown) Ordered: (units (unkno wn) date) unknown) (unknown) (no (unknown) (unknown) Orders (units (unkno wn) date) unknown) (unknown) (no (unknown) (unknown) Oxygen Delivery (units (unknown) date) Method 12/06/22 unknown) 12:01 (unknown) (no (unknown) (unknown) Oxygen Delivery (units (unknown) date) Method Room Air unknown) Nasal Cannula (unknown) (no (unknown) (unknown) Oxygen Flow Rate 2 (units (unknown) date) unknown) (unknown) (no (unknown) (unknown) PRN (Reason: Dry (units (unknown) date) Nasal Passages) unknown) (unknown) (no (unknown) (unknown) PT (10.1-12.7) (units (unknown) date) SECONDS unknown) (unknown) (no (unknown) (unknown) PT 12.1 (units (unkno wn) date) (10.1-12.7) SECONDS unknown) (unknown) (no (unknown) (unknown) Pain (units (unkno wn) date) unknown) (unknown) (no (unknown) (unknown) Partial (units (unkno wn) date) Thromboplastin Time unknown) Stat (unknown) (no (unknown) (unknown) Patient History (units (unknown) date) unknown) (unknown) (no (unknown) (unknown) Patient: (units (unkno wn) date) Roselyn Mejia unknown) MR#: [id number] (unknown) (no (unknown) (unknown) Plt Count (units (unkn own) date) (150-400) X103/uL unknown) (unknown) (no (unknown) (unknown) Plt Count 216 (units ( unknown) date) (150-400) X103/uL unknown) (unknown) (no (unknown) (unknown) Point of Care (units ( unknown) date) Testing unknown) (unknown) (no (unknown) (unknown) Point of care (units ( unknown) date) testing: unknown) (unknown) (no (unknown) (unknown) Potassium (units (unkn own) date) (3.4-5.1) mmol/L unknown) (unknown) (no (unknown) (unknown) Potassium 4.6 (units ( unknown) date) (3.4-5.1) mmol/L unknown) (unknown) (no (unknown) (unknown) Prescriptions: (units (unknown) date) unknown) (unknown) (no (unknown) (unknown) Prothrombin Time (units (unknown) date) INR Stat unknown) (unknown) (no (unknown) (unknown) Psychiatric (units (un known) date) unknown) (unknown) (no (unknown) (unknown) Psychiatric: Denies (units (unknown) date) anxiety, Denies unknown) behavioral changes, Denies confusion, Denies (unknown) (no (unknown) (unknown) Pulse Oximetry 97 (units (unknown) date) 12/06/22 12:01 unknown) (unknown) (no (unknown) (unknown) Pulse Oximetry 97 (units (unknown) date) 99 unknown) (unknown) (no (unknown) (unknown) Pulse Rate 84 (units ( unknown) date) 12/06/22 12:01 unknown) (unknown) (no (unknown) (unknown) Pulse Rate 84 99 H (units (unknown) date) unknown) (unknown) (no (unknown) (unknown) RBC (4.0-5.2) (units ( unknown) date) X106/uL unknown) (unknown) (no (unknown) (unknown) RBC 5.32 H (units (unk nown) date) (4.0-5.2) X106/uL unknown) (unknown) (no (unknown) (unknown) RDW (11.6-14.8) % (units (unknown) date) unknown) (unknown) (no (unknown) (unknown) RDW 16.6 H (units (unk nown) date) (11.6-14.8) % unknown) (unknown) (no (unknown) (unknown) ROS Unobtainable: (units (unknown) date) All systems unknown) reviewed + are unremarkable except as noted in HPI (unknown) (no (unknown) (unknown) Rate:?regular rate (units (unknown) date) unknown) (unknown) (no (unknown) (unknown) Referrals: (units (unk nown) date) unknown) (unknown) (no (unknown) (unknown) Related Data (units (u nknown) date) unknown) (unknown) (no (unknown) (unknown) Resp (units (unkno wn) date) unknown) (unknown) (no (unknown) (unknown) Respiratory Rate (units (unknown) date) 16 12/06/22 12:01 unknown) (unknown) (no (unknown) (unknown) Respiratory Rate (units (unknown) date) 16 18 unknown) (unknown) (no (unknown) (unknown) Respiratory (units (un known) date) unknown) (unknown) (no (unknown) (unknown) Respiratory: Denies (units (unknown) date) cough, Denies unknown) dyspnea, Denies dyspnea on exertion and Denies (unknown) (no (unknown) (unknown) Review of Systems (units (unknown) date) unknown) (unknown) (no (unknown) (unknown) Rhythm:?regular (units (unknown) date) rhythm unknown) (unknown) (no (unknown) (unknown) Robitussin DM To (units (unknown) date) Go 10 ml PO PRN unknown) Cough 07/24/22 (unknown) (no (unknown) (unknown) Robitussin DM To (units (unknown) date) Go unknown) (unknown) (no (unknown) (unknown) Rx Instructions: (units (unknown) date) unknown) (unknown) (no (unknown) (unknown) SARS-CoV-2 (PCR) (units (unknown) date) (Negative) unknown) (unknown) (no (unknown) (unknown) SARS-CoV-2 (PCR) (units (unknown) date) Negative (Negative) unknown) (unknown) (no (unknown) (unknown) Signed By: (units (unk nown) date) unknown) (unknown) (no (unknown) (unknown) Skin (units (unkno wn) date) unknown) (unknown) (no (unknown) (unknown) Skin/Breast: (units (u nknown) date) Denies pruritus, unknown) Denies erythema, Denies rash and Denies wounds (unknown) (no (unknown) (unknown) Smoking Status: (units (unknown) date) Former smoker unknown) (unknown) (no (unknown) (unknown) Social History (units (unknown) date) (Reviewed 12/06/22 unknown) @ 13:43 by Farshad Manley PA-C) (unknown) (no (unknown) (unknown) Sodium (137-145) (units (unknown) date) mmol/L unknown) (unknown) (no (unknown) (unknown) Sodium 139 (units (unk nown) date) (137-145) mmol/L unknown) (unknown) (no (unknown) (unknown) Source: patient (units (unknown) date) unknown) (unknown) (no (unknown) (unknown) Stated Complaint: (units (unknown) date) doesn't feel good unknown) stomach to chest (unknown) (no (unknown) (unknown) Status post (units (un known) date) cholecystectomy unknown) (unknown) (no (unknown) (unknown) Stool Occult Blood (units (unknown) date) Negative unknown) (unknown) (no (unknown) (unknown) Stop: 12/06/22 (units (unknown) date) 12:07 unknown) (unknown) (no (unknown) (unknown) Stop: 12/06/22 (units (unknown) date) 13:16 unknown) (unknown) (no (unknown) (unknown) Substance Use (units ( unknown) date) Type: does not use unknown) (unknown) (no (unknown) (unknown) Sulfa (Sulfonamide (units (unknown) date) Allergy unknown) Intermediate rash Verified 07/26/22 18:34 (unknown) (no (unknown) (unknown) Surgical History (units (unknown) date) (Reviewed 12/06/22 unknown) @ 13:43 by Farshad Manley PA-C) (unknown) (no (unknown) (unknown) TAKE 1 CAPSULE BY (units (unknown) date) MOUTH ONCE DAILY unknown) (unknown) (no (unknown) (unknown) TAKE 1 TABLET BY (units (unknown) date) MOUTH ONCE DAILY IN unknown) THE MORNING (unknown) (no (unknown) (unknown) TAKE 1 TABLET BY (units (unknown) date) MOUTH ONCE DAILY unknown) (unknown) (no (unknown) (unknown) Temperature 98 F (units (unknown) date) 12/06/22 12:01 unknown) (unknown) (no (unknown) (unknown) Temperature 98 F (units (unknown) date) unknown) (unknown) (no (unknown) (unknown) Throat:?posterior (units (unknown) date) oropharynx normal unknown) (unknown) (no (unknown) (unknown) Time Seen by (units (u nknown) date) Provider: 12/06/22 unknown) 12:15 (unknown) (no (unknown) (unknown) Total Bilirubin (units (unknown) date) (0.2-1.3) mg/dL unknown) (unknown) (no (unknown) (unknown) Total Bilirubin (units (unknown) date) 1.1 (0.2-1.3) mg/dL unknown) (unknown) (no (unknown) (unknown) Total Creatine (units (unknown) date) Kinase (30-135) U/L unknown) (unknown) (no (unknown) (unknown) Total Creatine (units (unknown) date) Kinase 50 (30-135) unknown) U/L (unknown) (no (unknown) (unknown) Total Protein (units ( unknown) date) (6.3-8.2) g/dL unknown) (unknown) (no (unknown) (unknown) Total Protein 7.6 (units (unknown) date) (6.3-8.2) g/dL unknown) (unknown) (no (unknown) (unknown) Troponin + CK (units ( unknown) date) Cardiac Panel Stat unknown) (unknown) (no (unknown) (unknown) Troponin I (units (unk nown) date) (0.01-0.034) ng/mL unknown) (unknown) (no (unknown) (unknown) Troponin I 0.021 (units (unknown) date) (0.01-0.034) ng/mL unknown) (unknown) (no (unknown) (unknown) Unstable angina (units (unknown) date) unknown) (unknown) (no (unknown) (unknown) Ur Bilirubin (units (u nknown) date) Confirm (Negative) unknown) (unknown) (no (unknown) (unknown) Ur Bilirubin (units (u nknown) date) Confirm Negative unknown) (Negative) (unknown) (no (unknown) (unknown) Urine Dip (units (unkn own) date) unknown) (unknown) (no (unknown) (unknown) Urine Specific (units (unknown) date) Supply 1.025 unknown) (unknown) (no (unknown) (unknown) Valvular heart (units (unknown) date) disease unknown) (unknown) (no (unknown) (unknown) Vital Signs - 8 hr (units (unknown) date) unknown) (unknown) (no (unknown) (unknown) Vital Signs (units (un known) date) unknown) (unknown) (no (unknown) (unknown) Vital signs: (units (u nknown) date) unknown) (unknown) (no (unknown) (unknown) WBC (4.5-11.0) (units (unknown) date) X103/uL unknown) (unknown) (no (unknown) (unknown) WBC 11.2 H (units (unk nown) date) (4.5-11.0) X103/uL unknown) (unknown) (no (unknown) (unknown) Katy Salazar, (units (unknown) date) 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 [Primary Care unknown) Provider] (unknown) (no (unknown) (unknown) XR chest 1V Stat (units (unknown) date) unknown) (unknown) (no (unknown) (unknown) [Embedded Image (units (unknown) date) Not Available] unknown) (unknown) (no (unknown) (unknown) [From Bactrim] (units (unknown) date) unknown) (unknown) (no (unknown) (unknown) [From Trilipix] (units (unknown) date) Upset unknown) (unknown) (no (unknown) (unknown) acarbose Allergy (units (unknown) date) Intermediate unknown) Abdominal Verified 07/26/22 18:34 (unknown) (no (unknown) (unknown) albuterol 90 (units (u nknown) date) mcg/actuation unknown) Aerosol (unknown) (no (unknown) (unknown) albuterol 90 (units (u nknown) date) mcg/actuation unknown) aerosol 90 mcg inhalation PRN Shortness Of 07/24/22 (unknown) (no (unknown) (unknown) alcohol intake (units (unknown) date) frequency: 0-2 unknown) drinks per day (unknown) (no (unknown) (unknown) alcohol intake: (units (unknown) date) never unknown) (unknown) (no (unknown) (unknown) amlodipine Allergy (units (unknown) date) Intermediate unknown) Verified 07/26/22 18:34 (unknown) (no (unknown) (unknown) and Denies (units (unk nown) date) orthopnea unknown) (unknown) (no (unknown) (unknown) and Denies urinary (units (unknown) date) urgency unknown) (unknown) (no (unknown) (unknown) and Denies (units (unk nown) date) weakness unknown) (unknown) (no (unknown) (unknown) and below (units (unkn own) date) unknown) (unknown) (no (unknown) (unknown) aspirin 81 MG (units ( unknown) date) tablet,delayed unknown) release (DR/EC) (unknown) (no (unknown) (unknown) aspirin 81 mg (units ( unknown) date) tablet,delayed 81 unknown) mg PO QDAY ##0 09/14/17 07/24/22 (unknown) (no (unknown) (unknown) atorvastatin 20 mg (units (unknown) date) tablet (Lipitor) 40 unknown) mg PO QPM 07/08/22 07/24/22 (unknown) (no (unknown) (unknown) atorvastatin (units (u nknown) date) [Lipitor] 20 mg unknown) tablet (unknown) (no (unknown) (unknown) budesonide [From (units (unknown) date) Symbicort] Allergy unknown) Mild Anxiety Verified 07/26/22 18:34 (unknown) (no (unknown) (unknown) capsule,extended (units (unknown) date) release 24 hr unknown) (unknown) (no (unknown) (unknown) carvedilol Allergy (units (unknown) date) Mild Rash Verified unknown) 07/26/22 18:34 (unknown) (no (unknown) (unknown) chlorthalidone (units (unknown) date) Allergy unknown) Intermediate Redness of Verified 07/26/22 18:34 (unknown) (no (unknown) (unknown) choline (units (unkno wn) date) fenofibrate Allergy unknown) Mild Gastrointestinal Verified 07/26/22 18:34 (unknown) (no (unknown) (unknown) clopidogrel 75 mg (units (unknown) date) tablet 75 mg PO QAM unknown) 07/24/22 07/24/22 (unknown) (no (unknown) (unknown) clopidogrel 75 mg (units (unknown) date) tablet unknown) (unknown) (no (unknown) (unknown) constipation. (units ( unknown) date) unknown) (unknown) (no (unknown) (unknown) cyclobenzaprine 10 (units (unknown) date) mg Tablet unknown) (unknown) (no (unknown) (unknown) cyclobenzaprine 10 (units (unknown) date) mg tablet 10 mg PO unknown) TID PRN Muscle Spasm 07/24/22 07/24/22 (unknown) (no (unknown) (unknown) dehydration versus (units (unknown) date) other unknown) intra-abdominal pathology. Will obtain labs, lipase, (unknown) (no (unknown) (unknown) depression, Denies (units (unknown) date) homicidal ideation unknown) and Denies suicidal ideation (unknown) (no (unknown) (unknown) diarrhea, Denies (units (unknown) date) nausea and Reports unknown) vomiting (unknown) (no (unknown) (unknown) diarrhea. Concern (units (unknown) date) for ACS versus CHF unknown) exacerbation versus gastroenteritis versus (unknown) (no (unknown) (unknown) diltiazem HCl 120 (units (unknown) date) mg 120 mg PO QAM unknown) 07/08/22 07/24/22 (unknown) (no (unknown) (unknown) diltiazem HCl (units ( unknown) date) [Cartia XT] 120 mg unknown) capsule,extended release 24hr (unknown) (no (unknown) (unknown) doxazosin [From (units (unknown) date) Cardura] Allergy unknown) Intermediate Rash Verified 07/26/22 18:34 (unknown) (no (unknown) (unknown) doxycycline (units (un known) date) Allergy unknown) Intermediate Rash Verified 07/26/22 18:34 (unknown) (no (unknown) (unknown) falls, Denies (units ( unknown) date) lethargy and Denies unknown) weakness (unknown) (no (unknown) (unknown) formoterol [From (units (unknown) date) Symbicort] Allergy unknown) Mild Anxiety Verified 07/26/22 18:34 (unknown) (no (unknown) (unknown) furosemide 40 mg (units (unknown) date) tablet 40 mg PO QAM unknown) 07/08/22 07/08/22 (unknown) (no (unknown) (unknown) furosemide 40 mg (units (unknown) date) tablet unknown) (unknown) (no (unknown) (unknown) gemfibrozil (units (un known) date) Allergy unknown) Intermediate Rash Verified 07/26/22 18:34 (unknown) (no (unknown) (unknown) history of (units (unk nown) date) constipation. unknown) Patient states that she more often has diarrhea than (unknown) (no (unknown) (unknown) household members: (units (unknown) date) family and children unknown) (unknown) (no (unknown) (unknown) inhaler Breath (units (unknown) date) unknown) (unknown) (no (unknown) (unknown) ipratropium 0.5 (units (unknown) date) mg-albuterol 3 mg unknown) ml inhalation PRN Shortness Of 07/24/22 (unknown) (no (unknown) (unknown) ipratropium-albute (units (unknown) date) rol 0.5 mg-3 mg(2.5 unknown) mg base)/3 mL solution for nebulization (unknown) (no (unknown) (unknown) isosorbide (units (unk nown) date) mononitrate 120 mg unknown) 120 mg PO QAM 07/08/22 07/24/22 (unknown) (no (unknown) (unknown) isosorbide (units (unk nown) date) mononitrate 120 mg unknown) tablet extended release 24 hr (unknown) (no (unknown) (unknown) levofloxacin (units (u nknown) date) Allergy unknown) Intermediate Rash Verified 07/26/22 18:34 (unknown) (no (unknown) (unknown) levothyroxine 88 (units (unknown) date) mcg tablet 88 mcg unknown) PO QAM 07/08/22 07/24/22 (unknown) (no (unknown) (unknown) levothyroxine 88 (units (unknown) date) mcg tablet unknown) (unknown) (no (unknown) (unknown) lightheadedness, (units (unknown) date) Denies unknown) palpitations, Denies dyspnea, Denies dyspnea on exertion (unknown) (no (unknown) (unknown) lisinopril 40 mg (units (unknown) date) tablet 20 mg PO QAM unknown) 07/08/22 07/24/22 (unknown) (no (unknown) (unknown) lisinopril 40 mg (units (unknown) date) tablet unknown) (unknown) (no (unknown) (unknown) losartan Allergy (units (unknown) date) Intermediate Rash unknown) Verified 07/26/22 18:34 (unknown) (no (unknown) (unknown) metoprolol AdvReac (units (unknown) date) Intermediate unknown) Verified 07/26/22 18:34 (unknown) (no (unknown) (unknown) metoprolol (units (unk nown) date) succinate 25 mg 25 unknown) mg PO DAILY 07/24/22 07/24/22 (unknown) (no (unknown) (unknown) metoprolol (units (unk nown) date) succinate 25 mg unknown) tablet extended release 24 hr (unknown) (no (unknown) (unknown) montelukast [From (units (unknown) date) Singulair] Allergy unknown) Intermediate Difficulty Verified 07/26/22 (unknown) (no (unknown) (unknown) morning (units (unkno wn) date) unknown) (unknown) (no (unknown) (unknown) multivitamin 1 tab (units (unknown) date) PO DAILY 09/10/18 unknown) 07/24/22 (unknown) (no (unknown) (unknown) multivitamin (units (u nknown) date) Tablet,Chewable unknown) (unknown) (no (unknown) (unknown) neck pain, Denies (units (unknown) date) sore throat and unknown) Denies throat swelling (unknown) (no (unknown) (unknown) nifedipine Allergy (units (unknown) date) Intermediate Chills unknown) Verified 07/26/22 18:34 (unknown) (no (unknown) (unknown) nitroglycerin 0.4 (units (unknown) date) mg sublingual 0.4 unknown) mg sublingual Q5-15M PRN Chest 09/10/18 (unknown) (no (unknown) (unknown) nitroglycerin (units ( unknown) date) [Nitrostat] 0.4 mg unknown) Tablet, Sublingual (unknown) (no (unknown) (unknown) of breath, (units (unk nown) date) dysuria, unknown) lightheadedness, dizziness, syncope. Patient states that (unknown) (no (unknown) (unknown) omega (units (unkno wn) date) [id number]-fish oil unknown) 1,000 mg 1,000 mg PO DAILY 09/10/18 07/24/22 (unknown) (no (unknown) (unknown) omega (units (unkno wn) date) [id number]-jln-fish oil unknown) [Fish Oil] 1,000 mg (120 mg-180 mg) Capsule (unknown) (no (unknown) (unknown) patient states she (units (unknown) date) forgets to take unknown) (unknown) (no (unknown) (unknown) presents to the ED (units (unknown) date) with 1 day of unknown) abdominal pain. Patient states she is feeling (unknown) (no (unknown) (unknown) presents to the ED (units (unknown) date) with 1 day of unknown) abdominal pain. 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 unknown) d/c 07/14/22 (unknown) (no (unknown) (unknown) release (units (unkno wn) date) unknown) (unknown) (no (unknown) (unknown) rest in her car (units (unknown) date) for a little bit unknown) but felt worse. Patient drove herself to the (unknown) (no (unknown) (unknown) she ate some salad (units (unknown) date) any bread stick at unknown) [employer] yesterday. Patient denies a (unknown) (no (unknown) (unknown) soln (units (unkno wn) date) unknown) (unknown) (no (unknown) (unknown) sulfamethoxazole (units (unknown) date) Allergy unknown) Intermediate Rash Verified 07/26/22 18:34 (unknown) (no (unknown) (unknown) tablet (Nitrostat) (units (unknown) date) Pain unknown) (unknown) (no (unknown) (unknown) tablet,extended (units (unknown) date) release 24 hr unknown) (unknown) (no (unknown) (unknown) tenderness. (units (un known) date) unknown) (unknown) (no (unknown) (unknown) that she had no (units (unknown) date) other symptoms unknown) including fevers, chills, chest pain, shortness (unknown) (no (unknown) (unknown) tobacco type: (units ( unknown) date) cigarettes unknown) (unknown) (no (unknown) (unknown) torsemide 20 mg (units (unknown) date) Tablet unknown) (unknown) (no (unknown) (unknown) torsemide 20 mg (units (unknown) date) tablet 20 mg PO unknown) DAILY 07/24/22 07/24/22 (unknown) (no (unknown) (unknown) trimethoprim [From (units (unknown) date) Bactrim] Allergy unknown) Intermediate Rash Verified 07/26/22 18:34 (unknown) (no (unknown) (unknown) troponin, BNP, (units (unknown) date) chest x-ray, EKG, unknown) CT abdomen pelvis. (unknown) (no (unknown) (unknown) up feeling fine, (units (unknown) date) went to [employer] unknown) study, it a little bit of fruit including (unknown) (no (unknown) (unknown) vitamin E 268 mg (units (unknown) date) (400 unit) capsule unknown) 400 unit PO DAILY 09/10/18 07/24/22 (unknown) (no (unknown) (unknown) vitamin E 400 unit (units (unknown) date) Capsule unknown) (unknown) (no (unknown) (unknown) watermelon, (units (un known) date) grapes, unknown) blackberries, felt uncomfortable in her abdomen, tried to (unknown) (no (unknown) (unknown) well and (units (unkno wn) date) symptom-free after unknown) she had a massive bout of emesis and watery (unknown) (no (unknown) (unknown) wheezing (units (unkno wn) date) unknown) Result panel [id number] (unknown) (no (unknown) (unknown) (no value) (units (unk nown) date) unknown) (unknown) (no (unknown) (unknown) (120 mg-180 mg) (units (unknown) date) capsule (Fish Oil) unknown) (unknown) (no (unknown) (unknown) (2.5 mg base)/3 mL (units (unknown) date) nebulization Breath unknown) Or Wheezing (unknown) (no (unknown) (unknown) (Cartia XT) (units (un known) date) unknown) (unknown) (no (unknown) (unknown) 0.4 mg SUBLINGUAL (units (unknown) date) Q5-15M PRN (Reason: unknown) Chest Pain) (unknown) (no (unknown) (unknown) 12/06/22 12/06/22 (units (unknown) date) 12/06/22 unknown) Range/Units (unknown) (no (unknown) (unknown) 12/06/22 12:07 (units (unknown) date) unknown) (unknown) (no (unknown) (unknown) 12/06/22 12:10 (units (unknown) date) unknown) (unknown) (no (unknown) (unknown) 12/06/22 12:25 (units (unknown) date) unknown) (unknown) (no (unknown) (unknown) 12/06/22 12:34 (units (unknown) date) unknown) (unknown) (no (unknown) (unknown) 12/06/22 13:31 (units (unknown) date) unknown) (unknown) (no (unknown) (unknown) 12/06/22 14:13 (units (unknown) date) unknown) (unknown) (no (unknown) (unknown) 12/06/22 14:35 (units (unknown) date) unknown) (unknown) (no (unknown) (unknown) 12/06/22 (units (unkno wn) date) unknown) (unknown) (no (unknown) (unknown) [id number] (units (unkno wn) date) unknown) (unknown) (no (unknown) (unknown) 07/24/22 (units (unkno wn) date) unknown) (unknown) (no (unknown) (unknown) 1 tab PO DAILY (units (unknown) date) unknown) (unknown) (no (unknown) (unknown) 1,000 mg PO DAILY (units (unknown) date) unknown) (unknown) (no (unknown) (unknown) 10 mg PO TID PRN (units (unknown) date) (Reason: Muscle unknown) Spasm) (unknown) (no (unknown) (unknown) 10 ml PO PRN (units (u nknown) date) (Reason: Cough) unknown) (unknown) (no (unknown) (unknown) 10-100mg/5ml (units (u nknown) date) liquid. take 10ml unknown) by mouth every 4 hrs as needed for cough (unknown) (no (unknown) (unknown) 120 mg PO QAM (units ( unknown) date) unknown) (unknown) (no (unknown) (unknown) 12:01 12/06/22 (units (unknown) date) unknown) (unknown) (no (unknown) (unknown) 12:25 12:34 12:34 (units (unknown) date) unknown) (unknown) (no (unknown) (unknown) 12:30 12/06/22 (units (unknown) date) unknown) (unknown) (no (unknown) (unknown) 12:30 (units (unkno wn) date) unknown) (unknown) (no (unknown) (unknown) 12:34 12:34 12:34 (units (unknown) date) unknown) (unknown) (no (unknown) (unknown) 13:29 12/06/22 (units (unknown) date) unknown) (unknown) (no (unknown) (unknown) 13:30 12/06/22 (units (unknown) date) unknown) (unknown) (no (unknown) (unknown) 13:30 (units (unkno wn) date) unknown) (unknown) (no (unknown) (unknown) 18:34 (units (unkno wn) date) unknown) (unknown) (no (unknown) (unknown) 20 mg PO DAILY (units (unknown) date) unknown) (unknown) (no (unknown) (unknown) 20 mg PO QAM (units (u nknown) date) unknown) (unknown) (no (unknown) (unknown) 25 mg PO DAILY (units (unknown) date) unknown) (unknown) (no (unknown) (unknown) 40 mg PO QAM (units (u nknown) date) unknown) (unknown) (no (unknown) (unknown) 40 mg PO QPM (units (u nknown) date) unknown) (unknown) (no (unknown) (unknown) 400 unit PO DAILY (units (unknown) date) unknown) (unknown) (no (unknown) (unknown) 75 mg PO QAM (units (u nknown) date) unknown) (unknown) (no (unknown) (unknown) 81 mg PO QDAY Qty: (units (unknown) date) 0 unknown) (unknown) (no (unknown) (unknown) 86-year-old female (units (unknown) date) with past medical unknown) history NSTEMI, CHF, COPD, hypertension (unknown) (no (unknown) (unknown) 88 mcg PO QAM (units ( unknown) date) unknown) (unknown) (no (unknown) (unknown) 90 mcg INHALATION (units (unknown) date) PRN (Reason: unknown) Shortness Of Breath) (unknown) (no (unknown) (unknown) ALT (<35) IU/L (units (unknown) date) unknown) (unknown) (no (unknown) (unknown) ALT 21 (<35) IU/L (units (unknown) date) unknown) (unknown) (no (unknown) (unknown) APTT (26-36) (units (u nknown) date) SECONDS unknown) (unknown) (no (unknown) (unknown) APTT 33 (26-36) (units (unknown) date) SECONDS unknown) (unknown) (no (unknown) (unknown) AST (14-36) IU/L (units (unknown) date) unknown) (unknown) (no (unknown) (unknown) AST 30 (14-36) (units (unknown) date) IU/L unknown) (unknown) (no (unknown) (unknown) Abdomen is soft, (units (unknown) date) nondistended. unknown) Abdomen is diffusely tender to palpation. No CVA (unknown) (no (unknown) (unknown) Age/Sex: 86 / F (units (unknown) date) unknown) (unknown) (no (unknown) (unknown) Albumin (3.5-5.0) (units (unknown) date) g/dL unknown) (unknown) (no (unknown) (unknown) Albumin 4.4 (units (un known) date) (3.5-5.0) g/dL unknown) (unknown) (no (unknown) (unknown) Albumin/Globulin (units (unknown) date) Ratio (1.0-2.8) unknown) (unknown) (no (unknown) (unknown) Albumin/Globulin (units (unknown) date) Ratio 1.4 (1.0-2.8) unknown) (unknown) (no (unknown) (unknown) Alkaline (units (unkno wn) date) Phosphatase unknown) (38-126) U/L (unknown) (no (unknown) (unknown) Alkaline (units (unkno wn) date) Phosphatase 81 unknown) (38-126) U/L (unknown) (no (unknown) (unknown) Allergic/Immunolog (units (unknown) date) ic unknown) (unknown) (no (unknown) (unknown) Allergic/Immunolog (units (unknown) date) ic: Denies unknown) urticaria, Denies throat swelling and Denies (unknown) (no (unknown) (unknown) Allergies (units (unkn own) date) unknown) (unknown) (no (unknown) (unknown) Allergy/AdvReac (units (unknown) date) Type Severity unknown) Reaction Status Date / Time (unknown) (no (unknown) (unknown) 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 (unknown) (no (unknown) (unknown) Antibiotics) (units (u nknown) date) unknown) (unknown) (no (unknown) (unknown) Aspirin (Aspirin (units (unknown) date) 81 Mg Chew Tab) 324 unknown) mg PO NOW ONE (unknown) (no (unknown) (unknown) Auscultation:?zheng (units (unknown) date) r to auscultation unknown) bilaterally (unknown) (no (unknown) (unknown) BNP [NT-proBNP (units (unknown) date) (BNP-Adult 18+)] unknown) Stat (unknown) (no (unknown) (unknown) BUN (7-17) mg/dL (units (unknown) date) unknown) (unknown) (no (unknown) (unknown) BUN 20 H (7-17) (units (unknown) date) mg/dL unknown) (unknown) (no (unknown) (unknown) BUN/Creatinine (units (unknown) date) Ratio (6-22) unknown) (unknown) (no (unknown) (unknown) BUN/Creatinine (units (unknown) date) Ratio 23.5 H (6-22) unknown) (unknown) (no (unknown) (unknown) Baso # (Auto) (units ( unknown) date) (0-100) /uL unknown) (unknown) (no (unknown) (unknown) Baso # (Auto) 0 (units (unknown) date) (0-100) /uL unknown) (unknown) (no (unknown) (unknown) Baso % (Auto) (units ( unknown) date) (0-2) % unknown) (unknown) (no (unknown) (unknown) Baso % (Auto) 0.4 (units (unknown) date) (0-2) % unknown) (unknown) (no (unknown) (unknown) Bedside Urine (units ( unknown) date) Bilirubin + 1 unknown) (unknown) (no (unknown) (unknown) Bedside Urine (units ( unknown) date) Glucose Negative unknown) (unknown) (no (unknown) (unknown) Bedside Urine (units ( unknown) date) Ketone - Negative unknown) (unknown) (no (unknown) (unknown) Bedside Urine (units ( unknown) date) Leukocytes - unknown) Negative (unknown) (no (unknown) (unknown) Bedside Urine (units ( unknown) date) Nitrite - Negative unknown) (unknown) (no (unknown) (unknown) Bedside Urine (units ( unknown) date) Occult Blood - unknown) Negative (unknown) (no (unknown) (unknown) Bedside Urine (units ( unknown) date) Protein - Negative unknown) (unknown) (no (unknown) (unknown) Bedside Urine (units ( unknown) date) Urobilinogen - unknown) Negative (unknown) (no (unknown) (unknown) Bedside Urine pH 6 (units (unknown) date) unknown) (unknown) (no (unknown) (unknown) 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 unknown) (unknown) (no (unknown) (unknown) Blood Pressure (units (unknown) date) 140/70 02/08/23 unknown) 12:01 (unknown) (no (unknown) (unknown) Blood Pressure (units (unknown) date) 140/70 141/94 H unknown) (unknown) (no (unknown) (unknown) Blood Pressure (units (unknown) date) 181/85 H unknown) (unknown) (no (unknown) (unknown) Breathing (units (unkn own) date) unknown) (unknown) (no (unknown) (unknown) 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) unknown) (unknown) (no (unknown) (unknown) CK-MB (CK-2) Rel (units (unknown) date) Index TNP unknown) (unknown) (no (unknown) (unknown) CK-MB (CK-2) Rel (units (unknown) date) Index unknown) (unknown) (no (unknown) (unknown) CK-MB (CK-2) TNP (units (unknown) date) unknown) (unknown) (no (unknown) (unknown) CK-MB (CK-2) (units (u nknown) date) unknown) 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 (unknown) (no (unknown) (unknown) COVID19 -Nasal (units (unknown) date) RAPID/Pre-Proc Stat unknown) (unknown) (no (unknown) (unknown) CT abdomen pelvis (units (unknown) date) w con Stat unknown) (unknown) (no (unknown) (unknown) Calcium (8.4-10.2) (units (unknown) date) mg/dL unknown) (unknown) (no (unknown) (unknown) Calcium 10.4 H (units (unknown) date) (8.4-10.2) mg/dL unknown) (unknown) (no (unknown) (unknown) Carbon Dioxide (units (unknown) date) (22-32) mmol/L unknown) (unknown) (no (unknown) (unknown) Carbon Dioxide 32 (units (unknown) date) (22-32) mmol/L unknown) (unknown) (no (unknown) (unknown) Cardio (units (unkno wn) date) unknown) (unknown) (no (unknown) (unknown) Cardiovascular (units (unknown) date) unknown) (unknown) (no (unknown) (unknown) Cardiovascular: (units (unknown) date) Denies chest pain, unknown) Denies irregular heart rhythm, Denies (unknown) (no (unknown) (unknown) Chief Complaint: (units (unknown) date) Chest Pain unknown) (unknown) (no (unknown) (unknown) Chloride (98-107) (units (unknown) date) mmol/L unknown) (unknown) (no (unknown) (unknown) Chloride 98 (units (un known) date) (98-107) mmol/L unknown) (unknown) (no (unknown) (unknown) Complete Blood (units (unknown) date) Count AUTO DIFF unknown) Stat (unknown) (no (unknown) (unknown) Comprehensive (units ( unknown) date) Metabolic Panel unknown) Stat (unknown) (no (unknown) (unknown) Const (units (unkno wn) date) unknown) (unknown) (no (unknown) (unknown) Constitutional (units (unknown) date) unknown) (unknown) (no (unknown) (unknown) Constitutional: (units (unknown) date) Denies chills, unknown) Reports fatigue, Denies fever(s), Denies frequent (unknown) (no (unknown) (unknown) Course (units (unkno wn) date) unknown) (unknown) (no (unknown) (unknown) Creatinine (units (unk nown) date) (0.52-1.04) mg/dL unknown) (unknown) (no (unknown) (unknown) Creatinine 0.85 (units (unknown) date) (0.52-1.04) mg/dL unknown) (unknown) (no (unknown) (unknown) : 1935 (units (unknown) date) Acct:[id number] unknown) (unknown) (no (unknown) (unknown) Date of Service: (units (unknown) date) 12/06/22 unknown) (unknown) (no (unknown) (unknown) Denies frequent (units (unknown) date) falls, Denies loss unknown) of vision, Denies numbness, Denies tingling (unknown) (no (unknown) (unknown) Denies loss of (units (unknown) date) vision unknown) (unknown) (no (unknown) (unknown) Denies numbness (units (unknown) date) and Denies tingling unknown) (unknown) (no (unknown) (unknown) Departure (units (unkn own) date) unknown) (unknown) (no (unknown) (unknown) Discharge Plan (units (unknown) date) unknown) (unknown) (no (unknown) (unknown) Discontinued (units (u nknown) date) Medications unknown) (unknown) (no (unknown) (unknown) Documented By: KB (units (unknown) date) unknown) (unknown) (no (unknown) (unknown) ED Orders (units (unkn own) date) unknown) (unknown) (no (unknown) (unknown) ED, had a massive (units (unknown) date) bout of emesis and unknown) watery diarrhea in the ED. Patient states (unknown) (no (unknown) (unknown) EKG-12 Lead Stat (units (unknown) date) unknown) (unknown) (no (unknown) (unknown) ENT (units (unkno wn) date) unknown) (unknown) (no (unknown) (unknown) ER Physician: (units ( unknown) date) Vineet,Hyma P.A-C unknown) (unknown) (no (unknown) (unknown) Ears, Nose, Mouth, (units (unknown) date) and Throat: Denies unknown) change in voice, Denies dizziness, Denies (unknown) (no (unknown) (unknown) Ears:?hearing (units ( unknown) date) grossly normal unknown) bilaterally (unknown) (no (unknown) (unknown) Effort + (units (unkno wn) date) Inspection:?normal unknown) respiratory effort (unknown) (no (unknown) (unknown) Elevated TSH (units (u nknown) date) unknown) (unknown) (no (unknown) (unknown) Emergency Report (units (unknown) date) unknown) (unknown) (no (unknown) (unknown) Endocrine (units (unkn own) date) unknown) (unknown) (no (unknown) (unknown) Endocrine: Reports (units (unknown) date) fatigue, Denies unknown) flushing and Denies palpitations (unknown) (no (unknown) (unknown) Eos # (Auto) (units (u nknown) date) (0-450) /uL unknown) (unknown) (no (unknown) (unknown) Eos # (Auto) 300 (units (unknown) date) (0-450) /uL unknown) (unknown) (no (unknown) (unknown) Eos % (Auto) (2-4) (units (unknown) date) % unknown) (unknown) (no (unknown) (unknown) Eos % (Auto) 2.7 (units (unknown) date) (2-4) % unknown) (unknown) (no (unknown) (unknown) Esterase (units (unkno wn) date) unknown) (unknown) (no (unknown) (unknown) Estimated GFR > 60 (units (unknown) date) (>60) mL/min unknown) (unknown) (no (unknown) (unknown) Estimated GFR (units ( unknown) date) (>60) mL/min unknown) (unknown) (no (unknown) (unknown) Exam Narrative: (units (unknown) date) unknown) (unknown) (no (unknown) (unknown) Exam (units (unkno wn) date) unknown) (unknown) (no (unknown) (unknown) Eyes (units (unkno wn) date) unknown) (unknown) (no (unknown) (unknown) Eyes: Denies (units (u nknown) date) change in vision, unknown) Denies eye discharge, Denies irritation and (unknown) (no (unknown) (unknown) Face and (units (unkno wn) date) sinus:?normal unknown) facial exam and sinuses nontender (unknown) (no (unknown) (unknown) Family History (units (unknown) date) (Reviewed 12/06/22 unknown) @ 13:43 by Farshad Manley PA-C) (unknown) (no (unknown) (unknown) Father Lung cancer (units (unknown) date) unknown) (unknown) (no (unknown) (unknown) Flonase 50 mcg (units (unknown) date) unknown) (unknown) (no (unknown) (unknown) Flonase PRN Dry (units (unknown) date) Nasal Passages unknown) 07/24/22 (unknown) (no (unknown) (unknown) GI (units (unkno wn) date) unknown) (unknown) (no (unknown) (unknown) Gastrointestinal (units (unknown) date) unknown) (unknown) (no (unknown) (unknown) Gastrointestinal: (units (unknown) date) Reports abdominal unknown) pain, Denies change in bowel habits, Reports (unknown) (no (unknown) (unknown) General (units (unkno wn) date) unknown) (unknown) (no (unknown) (unknown) General:?appearanc (units (unknown) date) e normal, both eyes unknown) and all related structures (unknown) (no (unknown) (unknown) General:?cooperati (units (unknown) date) ve, healthy unknown) appearing and comfortable (unknown) (no (unknown) (unknown) General:?patient (units (unknown) date) alert, patient unknown) awake and patient oriented x3 (unknown) (no (unknown) (unknown) Genitourinary (units ( unknown) date) unknown) (unknown) (no (unknown) (unknown) Genitourinary: (units (unknown) date) Denies hematuria, unknown) Denies flank pain, Denies urinary incontinence (unknown) (no (unknown) (unknown) Globulin (1.7-4.1) (units (unknown) date) g/dL unknown) (unknown) (no (unknown) (unknown) Globulin 3.2 (units (u nknown) date) (1.7-4.1) g/dL unknown) (unknown) (no (unknown) (unknown) Glucose (80-110) (units (unknown) date) mg/dL unknown) (unknown) (no (unknown) (unknown) Glucose 114 H (units ( unknown) date) (80-110) mg/dL unknown) (unknown) (no (unknown) (unknown) H/O hysterectomy (units (unknown) date) with oophorectomy unknown) (unknown) (no (unknown) (unknown) 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 (unknown) (no (unknown) (unknown) HENMT (units (unkno wn) date) unknown) (unknown) (no (unknown) (unknown) HPI - Abdominal (units (unknown) date) Pain unknown) (unknown) (no (unknown) (unknown) HPI narrative: (units (unknown) date) unknown) (unknown) (no (unknown) (unknown) HTN (hypertension) (units (unknown) date) unknown) (unknown) (no (unknown) (unknown) Hct (36-46) % (units ( unknown) date) unknown) (unknown) (no (unknown) (unknown) Hct 44.9 (36-46) % (units (unknown) date) unknown) (unknown) (no (unknown) (unknown) Head:?normal to (units (unknown) date) inspection unknown) (unknown) (no (unknown) (unknown) Hematologic/Lympha (units (unknown) date) tic unknown) (unknown) (no (unknown) (unknown) Hematologic/Lympha (units (unknown) date) tic: Denies easy unknown) bruising (unknown) (no (unknown) (unknown) Hgb (12.0-16.0) (units (unknown) date) g/dL unknown) (unknown) (no (unknown) (unknown) Hgb 14.4 (units (unkno wn) date) (12.0-16.0) g/dL unknown) (unknown) (no (unknown) (unknown) History of Present (units (unknown) date) Illness unknown) (unknown) (no (unknown) (unknown) Home Medications (units (unknown) date) unknown) (unknown) (no (unknown) (unknown) Hx of heart artery (units (unknown) date) stent unknown) (unknown) (no (unknown) (unknown) Hyperlipidemia (units (unknown) date) unknown) (unknown) (no (unknown) (unknown) INHALATION PRN (units (unknown) date) (Reason: Shortness unknown) Of Breath Or Wheezing) (unknown) (no (unknown) (unknown) INR (0.9-1.3) (units ( unknown) date) unknown) (unknown) (no (unknown) (unknown) INR 1.1 (0.9-1.3) (units (unknown) date) unknown) (unknown) (no (unknown) (unknown) Ictotest Urine (units (unknown) date) Stat unknown) (unknown) (no (unknown) (unknown) Initial Vital (units ( unknown) date) Signs unknown) (unknown) (no (unknown) (unknown) Initial Vital (units ( unknown) date) Signs: unknown) (unknown) (no (unknown) (unknown) Integumentary/Ruthy (units (unknown) date) sts unknown) (unknown) (no (unknown) (unknown) [facility] (units (unknown) date) [address] [place] [address] unknown) [place] [address] (unknown) (no (unknown) (unknown) Lab Data (units (unkno wn) date) unknown) (unknown) (no (unknown) (unknown) Lab Results (units (un known) date) unknown) (unknown) (no (unknown) (unknown) Label Comments: (units (unknown) date) unknown) (unknown) (no (unknown) (unknown) Labs: (units (unkno wn) date) unknown) (unknown) (no (unknown) (unknown) Last Admin: (units (un known) date) 12/06/22 12:40 unknown) Dose: 4 mg (unknown) (no (unknown) (unknown) Lipase (23-300) (units (unknown) date) U/L unknown) (unknown) (no (unknown) (unknown) Lipase 79 (23-300) (units (unknown) date) U/L unknown) (unknown) (no (unknown) (unknown) Lipase Stat (units (un known) date) unknown) (unknown) (no (unknown) (unknown) Lymph # (Auto) (units (unknown) date) (9912-6031) /uL unknown) (unknown) (no (unknown) (unknown) Lymph # (Auto) 600 (units (unknown) date) L (2021-6079) /uL unknown) (unknown) (no (unknown) (unknown) Lymph % (Auto) (units (unknown) date) (25-40) % unknown) (unknown) (no (unknown) (unknown) Lymph % (Auto) 5.7 (units (unknown) date) L (25-40) % unknown) (unknown) (no (unknown) (unknown) MCH (26-34) PG (units (unknown) date) unknown) (unknown) (no (unknown) (unknown) MCH 27.1 (26-34) (units (unknown) date) PG unknown) (unknown) (no (unknown) (unknown) MCHC (30-36) % (units (unknown) date) unknown) (unknown) (no (unknown) (unknown) MCHC 32.2 (30-36) (units (unknown) date) % unknown) (unknown) (no (unknown) (unknown) MCV (80-100) fL (units (unknown) date) unknown) (unknown) (no (unknown) (unknown) MCV 84.3 (80-100) (units (unknown) date) fL unknown) (unknown) (no (unknown) (unknown) MDM - Abdominal (units (unknown) date) Pain unknown) (unknown) (no (unknown) (unknown) MDM Narrative (units ( unknown) date) unknown) (unknown) (no (unknown) (unknown) Magnesium (units (unkn own) date) (1.6-2.3) mg/dL unknown) (unknown) (no (unknown) (unknown) Magnesium 1.8 (units ( unknown) date) (1.6-2.3) mg/dL unknown) (unknown) (no (unknown) (unknown) Magnesium Stat (units (unknown) date) unknown) (unknown) (no (unknown) (unknown) Medical History (units (unknown) date) (Reviewed 12/06/22 unknown) @ 13:43 by Farshad Manley PA-C) (unknown) (no (unknown) (unknown) Medical decision (units (unknown) date) making narrative: unknown) (unknown) (no (unknown) (unknown) Medication (units (unk nown) date) Instructions unknown) Recorded Confirmed (unknown) (no (unknown) (unknown) Mode of arrival: (units (unknown) date) Ambulatory unknown) (unknown) (no (unknown) (unknown) Trigg # (Auto) (units ( unknown) date) (0-900) /uL unknown) (unknown) (no (unknown) (unknown) Trigg # (Auto) 500 (units (unknown) date) (0-900) /uL unknown) (unknown) (no (unknown) (unknown) Trigg % (Auto) (units ( unknown) date) (3-14) % unknown) (unknown) (no (unknown) (unknown) Trigg % (Auto) 4.5 (units (unknown) date) (3-14) % unknown) (unknown) (no (unknown) (unknown) Mother COPD (units (un known) date) (chronic unknown) obstructive pulmonary disease) (unknown) (no (unknown) (unknown) Mouth:?oral (units (un known) date) mucosae normal unknown) (unknown) (no (unknown) (unknown) Musculoskeletal (units (unknown) date) unknown) (unknown) (no (unknown) (unknown) Musculoskeletal: (units (unknown) date) Denies back pain, unknown) Denies muscle weakness, Denies neck pain, (unknown) (no (unknown) (unknown) NT-Pro-B Natriuret (units (unknown) date) Pep (<450) pg/mL unknown) (unknown) (no (unknown) (unknown) NT-Pro-B Natriuret (units (unknown) date) Pep 5440 H (<450) unknown) pg/mL (unknown) (no (unknown) (unknown) Narrative (units (unkn own) date) unknown) (unknown) (no (unknown) (unknown) Neck (units (unkno wn) date) unknown) (unknown) (no (unknown) (unknown) Neck:?normal (units (u nknown) date) visual inspection unknown) and no lymphadenopathy noted (unknown) (no (unknown) (unknown) Neuro (units (unkno wn) date) unknown) (unknown) (no (unknown) (unknown) Neurologic (units (unk nown) date) unknown) (unknown) (no (unknown) (unknown) Neurologic: Denies (units (unknown) date) behavioral changes, unknown) Denies confusion, Denies dizziness, (unknown) (no (unknown) (unknown) Neut # (Auto) (units ( unknown) date) (9838-2351) /uL unknown) (unknown) (no (unknown) (unknown) Neut # (Auto) 9700 (units (unknown) date) H (9598-3990) /uL unknown) (unknown) (no (unknown) (unknown) Neut % (Auto) (units ( unknown) date) (50-75) % unknown) (unknown) (no (unknown) (unknown) Neut % (Auto) 86.7 (units (unknown) date) H (50-75) % unknown) (unknown) (no (unknown) (unknown) No Action (units (unkn own) date) unknown) (unknown) (no (unknown) (unknown) Nose:?external (units (unknown) date) nose normal unknown) (unknown) (no (unknown) (unknown) Ondansetron HCl (units (unknown) date) (Ondansetron 4 Mg/2 unknown) Ml Inj) 4 mg IV NOW ONE (unknown) (no (unknown) (unknown) Ordered: (units (unkno wn) date) unknown) (unknown) (no (unknown) (unknown) Orders (units (unkno wn) date) unknown) (unknown) (no (unknown) (unknown) Oxygen Delivery (units (unknown) date) Method 12/06/22 unknown) 12:01 (unknown) (no (unknown) (unknown) Oxygen Delivery (units (unknown) date) Method Room Air unknown) Nasal Cannula (unknown) (no (unknown) (unknown) Oxygen Delivery (units (unknown) date) Method unknown) (unknown) (no (unknown) (unknown) Oxygen Flow Rate 2 (units (unknown) date) unknown) (unknown) (no (unknown) (unknown) Oxygen Flow Rate (units (unknown) date) unknown) (unknown) (no (unknown) (unknown) PRN (Reason: Dry (units (unknown) date) Nasal Passages) unknown) (unknown) (no (unknown) (unknown) PT (10.1-12.7) (units (unknown) date) SECONDS unknown) (unknown) (no (unknown) (unknown) PT 12.1 (units (unkno wn) date) (10.1-12.7) SECONDS unknown) (unknown) (no (unknown) (unknown) Pain (units (unkno wn) date) unknown) (unknown) (no (unknown) (unknown) Partial (units (unkno wn) date) Thromboplastin Time unknown) Stat (unknown) (no (unknown) (unknown) Patient History (units (unknown) date) unknown) (unknown) (no (unknown) (unknown) Patient: (units (unkno wn) date) Roselyn Mejia unknown) MR#: [id number] (unknown) (no (unknown) (unknown) Plt Count (units (unkn own) date) (150-400) X103/uL unknown) (unknown) (no (unknown) (unknown) Plt Count 216 (units ( unknown) date) (150-400) X103/uL unknown) (unknown) (no (unknown) (unknown) Point of Care (units ( unknown) date) Testing unknown) (unknown) (no (unknown) (unknown) Point of care (units ( unknown) date) testing: unknown) (unknown) (no (unknown) (unknown) Potassium (units (unkn own) date) (3.4-5.1) mmol/L unknown) (unknown) (no (unknown) (unknown) Potassium 4.6 (units ( unknown) date) (3.4-5.1) mmol/L unknown) (unknown) (no (unknown) (unknown) Prescriptions: (units (unknown) date) unknown) (unknown) (no (unknown) (unknown) Prothrombin Time (units (unknown) date) INR Stat unknown) (unknown) (no (unknown) (unknown) Psychiatric (units (un known) date) unknown) (unknown) (no (unknown) (unknown) Psychiatric: Denies (units (unknown) date) anxiety, Denies unknown) behavioral changes, Denies confusion, Denies (unknown) (no (unknown) (unknown) Pulse Oximetry 96 (units (unknown) date) 99 unknown) (unknown) (no (unknown) (unknown) Pulse Oximetry 97 (units (unknown) date) 12/06/22 12:01 unknown) (unknown) (no (unknown) (unknown) Pulse Oximetry 97 (units (unknown) date) 99 unknown) (unknown) (no (unknown) (unknown) Pulse Rate 81 86 (units (unknown) date) unknown) (unknown) (no (unknown) (unknown) Pulse Rate 84 (units ( unknown) date) 12/06/22 12:01 unknown) (unknown) (no (unknown) (unknown) Pulse Rate 84 99 H (units (unknown) date) unknown) (unknown) (no (unknown) (unknown) RBC (4.0-5.2) (units ( unknown) date) X106/uL unknown) (unknown) (no (unknown) (unknown) RBC 5.32 H (units (unk nown) date) (4.0-5.2) X106/uL unknown) (unknown) (no (unknown) (unknown) RDW (11.6-14.8) % (units (unknown) date) unknown) (unknown) (no (unknown) (unknown) RDW 16.6 H (units (unk nown) date) (11.6-14.8) % unknown) (unknown) (no (unknown) (unknown) ROS Unobtainable: (units (unknown) date) All systems unknown) reviewed + are unremarkable except as noted in HPI (unknown) (no (unknown) (unknown) Rate:?regular rate (units (unknown) date) unknown) (unknown) (no (unknown) (unknown) Referrals: (units (unk nown) date) unknown) (unknown) (no (unknown) (unknown) Related Data (units (u nknown) date) unknown) (unknown) (no (unknown) (unknown) Resp (units (unkno wn) date) unknown) (unknown) (no (unknown) (unknown) Respiratory Rate (units (unknown) date) 16 12/06/22 12:01 unknown) (unknown) (no (unknown) (unknown) Respiratory Rate (units (unknown) date) 16 18 unknown) (unknown) (no (unknown) (unknown) Respiratory Rate (units (unknown) date) 20 unknown) (unknown) (no (unknown) (unknown) Respiratory (units (un known) date) unknown) (unknown) (no (unknown) (unknown) Respiratory: Denies (units (unknown) date) cough, Denies unknown) dyspnea, Denies dyspnea on exertion and Denies (unknown) (no (unknown) (unknown) Review of Systems (units (unknown) date) unknown) (unknown) (no (unknown) (unknown) Rhythm:?regular (units (unknown) date) rhythm unknown) (unknown) (no (unknown) (unknown) Robitussin DM To (units (unknown) date) Go 10 ml PO PRN unknown) Cough 07/24/22 (unknown) (no (unknown) (unknown) Robitussin DM To (units (unknown) date) Go unknown) (unknown) (no (unknown) (unknown) Rx Instructions: (units (unknown) date) unknown) (unknown) (no (unknown) (unknown) SARS-CoV-2 (PCR) (units (unknown) date) (Negative) unknown) (unknown) (no (unknown) (unknown) SARS-CoV-2 (PCR) (units (unknown) date) Negative (Negative) unknown) (unknown) (no (unknown) (unknown) Signed By: (units (unk nown) date) unknown) (unknown) (no (unknown) (unknown) Skin (units (unkno wn) date) unknown) (unknown) (no (unknown) (unknown) Skin/Breast: (units (u nknown) date) Denies pruritus, unknown) Denies erythema, Denies rash and Denies wounds (unknown) (no (unknown) (unknown) Smoking Status: (units (unknown) date) Former smoker unknown) (unknown) (no (unknown) (unknown) Social History (units (unknown) date) (Reviewed 12/06/22 unknown) @ 13:43 by Farshad Manley PA-C) (unknown) (no (unknown) (unknown) Sodium (137-145) (units (unknown) date) mmol/L unknown) (unknown) (no (unknown) (unknown) Sodium 139 (units (unk nown) date) (137-145) mmol/L unknown) (unknown) (no (unknown) (unknown) Source: patient (units (unknown) date) unknown) (unknown) (no (unknown) (unknown) Stated Complaint: (units (unknown) date) doesn't feel good unknown) stomach to chest (unknown) (no (unknown) (unknown) Status post (units (un known) date) cholecystectomy unknown) (unknown) (no (unknown) (unknown) Stool Occult Blood (units (unknown) date) Negative unknown) (unknown) (no (unknown) (unknown) Stop: 12/06/22 (units (unknown) date) 12:07 unknown) (unknown) (no (unknown) (unknown) Stop: 12/06/22 (units (unknown) date) 13:16 unknown) (unknown) (no (unknown) (unknown) Substance Use (units ( unknown) date) Type: does not use unknown) (unknown) (no (unknown) (unknown) Sulfa (Sulfonamide (units (unknown) date) Allergy unknown) Intermediate rash Verified 07/26/22 18:34 (unknown) (no (unknown) (unknown) Surgical History (units (unknown) date) (Reviewed 12/06/22 unknown) @ 13:43 by Farshad Manley PA-C) (unknown) (no (unknown) (unknown) TAKE 1 CAPSULE BY (units (unknown) date) MOUTH ONCE DAILY unknown) (unknown) (no (unknown) (unknown) TAKE 1 TABLET BY (units (unknown) date) MOUTH ONCE DAILY IN unknown) THE MORNING (unknown) (no (unknown) (unknown) TAKE 1 TABLET BY (units (unknown) date) MOUTH ONCE DAILY unknown) (unknown) (no (unknown) (unknown) Temperature 98 F (units (unknown) date) 12/06/22 12:01 unknown) (unknown) (no (unknown) (unknown) Temperature 98 F (units (unknown) date) unknown) (unknown) (no (unknown) (unknown) Temperature (units (un known) date) unknown) (unknown) (no (unknown) (unknown) Throat:?posterior (units (unknown) date) oropharynx normal unknown) (unknown) (no (unknown) (unknown) Time Seen by (units (u nknown) date) Provider: 12/06/22 unknown) 12:15 (unknown) (no (unknown) (unknown) Total Bilirubin (units (unknown) date) (0.2-1.3) mg/dL unknown) (unknown) (no (unknown) (unknown) Total Bilirubin (units (unknown) date) 1.1 (0.2-1.3) mg/dL unknown) (unknown) (no (unknown) (unknown) Total Creatine (units (unknown) date) Kinase (30-135) U/L unknown) (unknown) (no (unknown) (unknown) Total Creatine (units (unknown) date) Kinase 50 (30-135) unknown) U/L (unknown) (no (unknown) (unknown) Total Protein (units ( unknown) date) (6.3-8.2) g/dL unknown) (unknown) (no (unknown) (unknown) Total Protein 7.6 (units (unknown) date) (6.3-8.2) g/dL unknown) (unknown) (no (unknown) (unknown) Troponin + CK (units ( unknown) date) Cardiac Panel Stat unknown) (unknown) (no (unknown) (unknown) Troponin I (units (unk nown) date) (0.01-0.034) ng/mL unknown) (unknown) (no (unknown) (unknown) Troponin I 0.021 (units (unknown) date) (0.01-0.034) ng/mL unknown) (unknown) (no (unknown) (unknown) Type and Screen (units (unknown) date) Stat unknown) (unknown) (no (unknown) (unknown) Unstable angina (units (unknown) date) unknown) (unknown) (no (unknown) (unknown) Ur Bilirubin (units (u nknown) date) Confirm (Negative) unknown) (unknown) (no (unknown) (unknown) Ur Bilirubin (units (u nknown) date) Confirm Negative unknown) (Negative) (unknown) (no (unknown) (unknown) Urine Dip (units (unkn own) date) unknown) (unknown) (no (unknown) (unknown) Urine Specific (units (unknown) date) Supply 1.025 unknown) (unknown) (no (unknown) (unknown) Valvular heart (units (unknown) date) disease unknown) (unknown) (no (unknown) (unknown) Vital Signs - 8 hr (units (unknown) date) unknown) (unknown) (no (unknown) (unknown) Vital Signs (units (un known) date) unknown) (unknown) (no (unknown) (unknown) Vital signs: (units (u nknown) date) unknown) (unknown) (no (unknown) (unknown) WBC (4.5-11.0) (units (unknown) date) X103/uL unknown) (unknown) (no (unknown) (unknown) WBC 11.2 H (units (unk nown) date) (4.5-11.0) X103/uL unknown) (unknown) (no (unknown) (unknown) Katy Salazar, (units (unknown) date) 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 [Primary Care unknown) Provider] (unknown) (no (unknown) (unknown) XR chest 1V Stat (units (unknown) date) unknown) (unknown) (no (unknown) (unknown) [Embedded Image (units (unknown) date) Not Available] unknown) (unknown) (no (unknown) (unknown) [From Bactrim] (units (unknown) date) unknown) (unknown) (no (unknown) (unknown) [From Trilipix] (units (unknown) date) Upset unknown) (unknown) (no (unknown) (unknown) acarbose Allergy (units (unknown) date) Intermediate unknown) Abdominal Verified 07/26/22 18:34 (unknown) (no (unknown) (unknown) albuterol 90 (units (u nknown) date) mcg/actuation unknown) Aerosol (unknown) (no (unknown) (unknown) albuterol 90 (units (u nknown) date) mcg/actuation unknown) aerosol 90 mcg inhalation PRN Shortness Of 07/24/22 (unknown) (no (unknown) (unknown) alcohol intake (units (unknown) date) frequency: 0-2 unknown) drinks per day (unknown) (no (unknown) (unknown) alcohol intake: (units (unknown) date) never unknown) (unknown) (no (unknown) (unknown) amlodipine Allergy (units (unknown) date) Intermediate unknown) Verified 07/26/22 18:34 (unknown) (no (unknown) (unknown) and Denies (units (unk nown) date) orthopnea unknown) (unknown) (no (unknown) (unknown) and Denies urinary (units (unknown) date) urgency unknown) (unknown) (no (unknown) (unknown) and Denies (units (unk nown) date) weakness unknown) (unknown) (no (unknown) (unknown) and below (units (unkn own) date) unknown) (unknown) (no (unknown) (unknown) aspirin 81 MG (units ( unknown) date) tablet,delayed unknown) release (DR/EC) (unknown) (no (unknown) (unknown) aspirin 81 mg (units ( unknown) date) tablet,delayed 81 unknown) mg PO QDAY ##0 09/14/17 07/24/22 (unknown) (no (unknown) (unknown) atorvastatin 20 mg (units (unknown) date) tablet (Lipitor) 40 unknown) mg PO QPM 07/08/22 07/24/22 (unknown) (no (unknown) (unknown) atorvastatin (units (u nknown) date) [Lipitor] 20 mg unknown) tablet (unknown) (no (unknown) (unknown) budesonide [From (units (unknown) date) Symbicort] Allergy unknown) Mild Anxiety Verified 07/26/22 18:34 (unknown) (no (unknown) (unknown) capsule,extended (units (unknown) date) release 24 hr unknown) (unknown) (no (unknown) (unknown) carvedilol Allergy (units (unknown) date) Mild Rash Verified unknown) 07/26/22 18:34 (unknown) (no (unknown) (unknown) chlorthalidone (units (unknown) date) Allergy unknown) Intermediate Redness of Verified 07/26/22 18:34 (unknown) (no (unknown) (unknown) choline (units (unkno wn) date) fenofibrate Allergy unknown) Mild Gastrointestinal Verified 07/26/22 18:34 (unknown) (no (unknown) (unknown) clopidogrel 75 mg (units (unknown) date) tablet 75 mg PO QAM unknown) 07/24/22 07/24/22 (unknown) (no (unknown) (unknown) clopidogrel 75 mg (units (unknown) date) tablet unknown) (unknown) (no (unknown) (unknown) constipation. (units ( unknown) date) unknown) (unknown) (no (unknown) (unknown) cyclobenzaprine 10 (units (unknown) date) mg Tablet unknown) (unknown) (no (unknown) (unknown) cyclobenzaprine 10 (units (unknown) date) mg tablet 10 mg PO unknown) TID PRN Muscle Spasm 07/24/22 07/24/22 (unknown) (no (unknown) (unknown) depression, Denies (units (unknown) date) homicidal ideation unknown) and Denies suicidal ideation (unknown) (no (unknown) (unknown) diarrhea, Denies (units (unknown) date) nausea and Reports unknown) vomiting (unknown) (no (unknown) (unknown) diarrhea. Concern (units (unknown) date) for ACS versus CHF unknown) exacerbation versus ruptured AAA vs (unknown) (no (unknown) (unknown) diltiazem HCl 120 (units (unknown) date) mg 120 mg PO QAM unknown) 07/08/22 07/24/22 (unknown) (no (unknown) (unknown) diltiazem HCl (units ( unknown) date) [Cartia XT] 120 mg unknown) capsule,extended release 24hr (unknown) (no (unknown) (unknown) doxazosin [From (units (unknown) date) Cardura] Allergy unknown) Intermediate Rash Verified 07/26/22 18:34 (unknown) (no (unknown) (unknown) doxycycline (units (un known) date) Allergy unknown) Intermediate Rash Verified 07/26/22 18:34 (unknown) (no (unknown) (unknown) falls, Denies (units ( unknown) date) lethargy and Denies unknown) weakness (unknown) (no (unknown) (unknown) formoterol [From (units (unknown) date) Symbicort] Allergy unknown) Mild Anxiety Verified 07/26/22 18:34 (unknown) (no (unknown) (unknown) furosemide 40 mg (units (unknown) date) tablet 40 mg PO QAM unknown) 07/08/22 07/08/22 (unknown) (no (unknown) (unknown) furosemide 40 mg (units (unknown) date) tablet unknown) (unknown) (no (unknown) (unknown) gastroenteritis (units (unknown) date) versus dehydration unknown) versus other intra-abdominal pathology. Will (unknown) (no (unknown) (unknown) gemfibrozil (units (un known) date) Allergy unknown) Intermediate Rash Verified 07/26/22 18:34 (unknown) (no (unknown) (unknown) history of (units (unk nown) date) constipation. unknown) Patient states that she more often has diarrhea than (unknown) (no (unknown) (unknown) household members: (units (unknown) date) family and children unknown) (unknown) (no (unknown) (unknown) inhaler Breath (units (unknown) date) unknown) (unknown) (no (unknown) (unknown) ipratropium 0.5 (units (unknown) date) mg-albuterol 3 mg unknown) ml inhalation PRN Shortness Of 07/24/22 (unknown) (no (unknown) (unknown) ipratropium-albute (units (unknown) date) rol 0.5 mg-3 mg(2.5 unknown) mg base)/3 mL solution for nebulization (unknown) (no (unknown) (unknown) isosorbide (units (unk nown) date) mononitrate 120 mg unknown) 120 mg PO QAM 07/08/22 07/24/22 (unknown) (no (unknown) (unknown) isosorbide (units (unk nown) date) mononitrate 120 mg unknown) tablet extended release 24 hr (unknown) (no (unknown) (unknown) levofloxacin (units (u nknown) date) Allergy unknown) Intermediate Rash Verified 07/26/22 18:34 (unknown) (no (unknown) (unknown) levothyroxine 88 (units (unknown) date) mcg tablet 88 mcg unknown) PO QAM 07/08/22 07/24/22 (unknown) (no (unknown) (unknown) levothyroxine 88 (units (unknown) date) mcg tablet unknown) (unknown) (no (unknown) (unknown) lightheadedness, (units (unknown) date) Denies unknown) palpitations, Denies dyspnea, Denies dyspnea on exertion (unknown) (no (unknown) (unknown) lisinopril 40 mg (units (unknown) date) tablet 20 mg PO QAM unknown) 07/08/22 07/24/22 (unknown) (no (unknown) (unknown) lisinopril 40 mg (units (unknown) date) tablet unknown) (unknown) (no (unknown) (unknown) losartan Allergy (units (unknown) date) Intermediate Rash unknown) Verified 07/26/22 18:34 (unknown) (no (unknown) (unknown) metoprolol AdvReac (units (unknown) date) Intermediate unknown) Verified 07/26/22 18:34 (unknown) (no (unknown) (unknown) metoprolol (units (unk nown) date) succinate 25 mg 25 unknown) mg PO DAILY 07/24/22 07/24/22 (unknown) (no (unknown) (unknown) metoprolol (units (unk n) date) succinate 25 mg unknown) tablet extended release 24 hr (unknown) (no (unknown) (unknown) montelukast [From (units (unknown) date) Singulair] Allergy unknown) Intermediate Difficulty Verified 07/26/22 (unknown) (no (unknown) (unknown) morning (units (unkno wn) date) unknown) (unknown) (no (unknown) (unknown) multivitamin 1 tab (units (unknown) date) PO DAILY 09/10/18 unknown) 07/24/22 (unknown) (no (unknown) (unknown) multivitamin (units (u nknown) date) Tablet,Chewable unknown) (unknown) (no (unknown) (unknown) neck pain, Denies (units (unknown) date) sore throat and unknown) Denies throat swelling (unknown) (no (unknown) (unknown) nifedipine Allergy (units (unknown) date) Intermediate Chills unknown) Verified 07/26/22 18:34 (unknown) (no (unknown) (unknown) nitroglycerin 0.4 (units (unknown) date) mg sublingual 0.4 unknown) mg sublingual Q5-15M PRN Chest 09/10/18 (unknown) (no (unknown) (unknown) nitroglycerin (units ( unknown) date) [Nitrostat] 0.4 mg unknown) Tablet, Sublingual (unknown) (no (unknown) (unknown) obtain labs, (units (u nknown) date) lipase, troponin, unknown) BNP, chest x-ray, EKG, CT abdomen pelvis. (unknown) (no (unknown) (unknown) of breath, (units (unk nown) date) dysuria, unknown) lightheadedness, dizziness, syncope. Patient states that (unknown) (no (unknown) (unknown) omega (units (unkno wn) date) 0-trs-ysr-fish oil unknown) 1,000 mg 1,000 mg PO DAILY 09/10/18 07/24/22 (unknown) (no (unknown) (unknown) omega (units (unkno wn) date) [id number]-fish oil unknown) [Fish Oil] 1,000 mg (120 mg-180 mg) Capsule (unknown) (no (unknown) (unknown) patient states she (units (unknown) date) forgets to take unknown) (unknown) (no (unknown) (unknown) presents to the ED (units (unknown) date) with 1 day of unknown) abdominal pain. Patient states she is feeling (unknown) (no (unknown) (unknown) presents to the ED (units (unknown) date) with 1 day of unknown) abdominal pain. 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 unknown) d/c 07/14/22 (unknown) (no (unknown) (unknown) release (units (unkno wn) date) unknown) (unknown) (no (unknown) (unknown) rest in her car (units (unknown) date) for a little bit unknown) but felt worse. Patient drove herself to the (unknown) (no (unknown) (unknown) she ate some salad (units (unknown) date) any bread stick at unknown) [employer] yesterday. Patient denies a (unknown) (no (unknown) (unknown) soln (units (unkno wn) date) unknown) (unknown) (no (unknown) (unknown) sulfamethoxazole (units (unknown) date) Allergy unknown) Intermediate Rash Verified 07/26/22 18:34 (unknown) (no (unknown) (unknown) tablet (Nitrostat) (units (unknown) date) Pain unknown) (unknown) (no (unknown) (unknown) tablet,extended (units (unknown) date) release 24 hr unknown) (unknown) (no (unknown) (unknown) tenderness. (units (un known) date) unknown) (unknown) (no (unknown) (unknown) that she had no (units (unknown) date) other symptoms unknown) including fevers, chills, chest pain, shortness (unknown) (no (unknown) (unknown) tobacco type: (units ( unknown) date) cigarettes unknown) (unknown) (no (unknown) (unknown) torsemide 20 mg (units (unknown) date) Tablet unknown) (unknown) (no (unknown) (unknown) torsemide 20 mg (units (unknown) date) tablet 20 mg PO unknown) DAILY 07/24/22 07/24/22 (unknown) (no (unknown) (unknown) trimethoprim [From (units (unknown) date) Bactrim] Allergy unknown) Intermediate Rash Verified 07/26/22 18:34 (unknown) (no (unknown) (unknown) up feeling fine, (units (unknown) date) went to [employer] unknown) study, it a little bit of fruit including (unknown) (no (unknown) (unknown) vitamin E 268 mg (units (unknown) date) (400 unit) capsule unknown) 400 unit PO DAILY 09/10/18 07/24/22 (unknown) (no (unknown) (unknown) vitamin E 400 unit (units (unknown) date) Capsule unknown) (unknown) (no (unknown) (unknown) watermelon, (units (un known) date) grapes, unknown) blackberries, felt uncomfortable in her abdomen, tried to (unknown) (no (unknown) (unknown) well and (units (unkno wn) date) symptom-free after unknown) she had a massive bout of emesis and watery (unknown) (no (unknown) (unknown) wheezing (units (unkno wn) date) unknown) Result panel [id number] (unknown) (no (unknown) (unknown) (no value) (units (unk nown) date) unknown) (unknown) (no (unknown) (unknown) (120 mg-180 mg) (units (unknown) date) capsule (Fish Oil) unknown) (unknown) (no (unknown) (unknown) (2.5 mg base)/3 mL (units (unknown) date) nebulization Breath unknown) Or Wheezing (unknown) (no (unknown) (unknown) (Cartia XT) (units (un known) date) unknown) (unknown) (no (unknown) (unknown) 0.4 mg SUBLINGUAL (units (unknown) date) Q5-15M PRN (Reason: unknown) Chest Pain) (unknown) (no (unknown) (unknown) 12/06/22 12/06/22 (units (unknown) date) 12/06/22 unknown) Range/Units (unknown) (no (unknown) (unknown) 12/06/22 12:07 (units (unknown) date) unknown) (unknown) (no (unknown) (unknown) 12/06/22 12:10 (units (unknown) date) unknown) (unknown) (no (unknown) (unknown) 12/06/22 12:25 (units (unknown) date) unknown) (unknown) (no (unknown) (unknown) 12/06/22 12:34 (units (unknown) date) unknown) (unknown) (no (unknown) (unknown) 12/06/22 13:31 (units (unknown) date) unknown) (unknown) (no (unknown) (unknown) 12/06/22 14:13 (units (unknown) date) unknown) (unknown) (no (unknown) (unknown) 12/06/22 14:35 (units (unknown) date) unknown) (unknown) (no (unknown) (unknown) 12/06/22 (units (unkno wn) date) unknown) (unknown) (no (unknown) (unknown) [id number] (units (unkno wn) date) unknown) (unknown) (no (unknown) (unknown) 07/24/22 (units (unkno wn) date) unknown) (unknown) (no (unknown) (unknown) 1 tab PO DAILY (units (unknown) date) unknown) (unknown) (no (unknown) (unknown) 1,000 mg PO DAILY (units (unknown) date) unknown) (unknown) (no (unknown) (unknown) 10 mg PO TID PRN (units (unknown) date) (Reason: Muscle unknown) Spasm) (unknown) (no (unknown) (unknown) 10 ml PO PRN (units (u nknown) date) (Reason: Cough) unknown) (unknown) (no (unknown) (unknown) 10-100mg/5ml (units (u nknown) date) liquid. take 10ml unknown) by mouth every 4 hrs as needed for cough (unknown) (no (unknown) (unknown) 120 mg PO QAM (units ( unknown) date) unknown) (unknown) (no (unknown) (unknown) 12:01 12/06/22 (units (unknown) date) unknown) (unknown) (no (unknown) (unknown) 12:25 12:34 12:34 (units (unknown) date) unknown) (unknown) (no (unknown) (unknown) 12:30 12/06/22 (units (unknown) date) unknown) (unknown) (no (unknown) (unknown) 12:30 (units (unkno wn) date) unknown) (unknown) (no (unknown) (unknown) 12:34 12:34 12:34 (units (unknown) date) unknown) (unknown) (no (unknown) (unknown) 13:29 12/06/22 (units (unknown) date) unknown) (unknown) (no (unknown) (unknown) 13:30 12/06/22 (units (unknown) date) unknown) (unknown) (no (unknown) (unknown) 13:30 (units (unkno wn) date) unknown) (unknown) (no (unknown) (unknown) 18:34 (units (unkno wn) date) unknown) (unknown) (no (unknown) (unknown) 20 mg PO DAILY (units (unknown) date) unknown) (unknown) (no (unknown) (unknown) 20 mg PO QAM (units (u nknown) date) unknown) (unknown) (no (unknown) (unknown) 25 mg PO DAILY (units (unknown) date) unknown) (unknown) (no (unknown) (unknown) 40 mg PO QAM (units (u nknown) date) unknown) (unknown) (no (unknown) (unknown) 40 mg PO QPM (units (u nknown) date) unknown) (unknown) (no (unknown) (unknown) 400 unit PO DAILY (units (unknown) date) unknown) (unknown) (no (unknown) (unknown) 75 mg PO QAM (units (u nknown) date) unknown) (unknown) (no (unknown) (unknown) 81 mg PO QDAY Qty: (units (unknown) date) 0 unknown) (unknown) (no (unknown) (unknown) 86-year-old female (units (unknown) date) with past medical unknown) history NSTEMI, CHF, COPD, hypertension (unknown) (no (unknown) (unknown) 88 mcg PO QAM (units ( unknown) date) unknown) (unknown) (no (unknown) (unknown) 90 mcg INHALATION (units (unknown) date) PRN (Reason: unknown) Shortness Of Breath) (unknown) (no (unknown) (unknown) ALT (<35) IU/L (units (unknown) date) unknown) (unknown) (no (unknown) (unknown) ALT 21 (<35) IU/L (units (unknown) date) unknown) (unknown) (no (unknown) (unknown) APTT (26-36) (units (u nknown) date) SECONDS unknown) (unknown) (no (unknown) (unknown) APTT 33 (26-36) (units (unknown) date) SECONDS unknown) (unknown) (no (unknown) (unknown) AST (14-36) IU/L (units (unknown) date) unknown) (unknown) (no (unknown) (unknown) AST 30 (14-36) (units (unknown) date) IU/L unknown) (unknown) (no (unknown) (unknown) Abdomen is soft, (units (unknown) date) nondistended. unknown) Abdomen is diffusely tender to palpation. No CVA (unknown) (no (unknown) (unknown) Age/Sex: 86 / F (units (unknown) date) unknown) (unknown) (no (unknown) (unknown) Albumin (3.5-5.0) (units (unknown) date) g/dL unknown) (unknown) (no (unknown) (unknown) Albumin 4.4 (units (un known) date) (3.5-5.0) g/dL unknown) (unknown) (no (unknown) (unknown) Albumin/Globulin (units (unknown) date) Ratio (1.0-2.8) unknown) (unknown) (no (unknown) (unknown) Albumin/Globulin (units (unknown) date) Ratio 1.4 (1.0-2.8) unknown) (unknown) (no (unknown) (unknown) Alkaline (units (unkno wn) date) Phosphatase unknown) (38-126) U/L (unknown) (no (unknown) (unknown) Alkaline (units (unkno wn) date) Phosphatase 81 unknown) (38-126) U/L (unknown) (no (unknown) (unknown) Allergic/Immunolog (units (unknown) date) ic unknown) (unknown) (no (unknown) (unknown) Allergic/Immunolog (units (unknown) date) ic: Denies unknown) urticaria, Denies throat swelling and Denies (unknown) (no (unknown) (unknown) Allergies (units (unkn own) date) unknown) (unknown) (no (unknown) (unknown) Allergy/AdvReac (units (unknown) date) Type Severity unknown) Reaction Status Date / Time (unknown) (no (unknown) (unknown) 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 (unknown) (no (unknown) (unknown) Antibiotics) (units (u nknown) date) unknown) (unknown) (no (unknown) (unknown) Aspirin (Aspirin (units (unknown) date) 81 Mg Chew Tab) 324 unknown) mg PO NOW ONE (unknown) (no (unknown) (unknown) Auscultation:?zheng (units (unknown) date) r to auscultation unknown) bilaterally (unknown) (no (unknown) (unknown) BNP [NT-proBNP (units (unknown) date) (BNP-Adult 18+)] unknown) Stat (unknown) (no (unknown) (unknown) BUN (7-17) mg/dL (units (unknown) date) unknown) (unknown) (no (unknown) (unknown) BUN 20 H (7-17) (units (unknown) date) mg/dL unknown) (unknown) (no (unknown) (unknown) BUN/Creatinine (units (unknown) date) Ratio (6-22) unknown) (unknown) (no (unknown) (unknown) BUN/Creatinine (units (unknown) date) Ratio 23.5 H (6-22) unknown) (unknown) (no (unknown) (unknown) Baso # (Auto) (units ( unknown) date) (0-100) /uL unknown) (unknown) (no (unknown) (unknown) Baso # (Auto) 0 (units (unknown) date) (0-100) /uL unknown) (unknown) (no (unknown) (unknown) Baso % (Auto) (units ( unknown) date) (0-2) % unknown) (unknown) (no (unknown) (unknown) Baso % (Auto) 0.4 (units (unknown) date) (0-2) % unknown) (unknown) (no (unknown) (unknown) Bedside Urine (units ( unknown) date) Bilirubin + 1 unknown) (unknown) (no (unknown) (unknown) Bedside Urine (units ( unknown) date) Glucose Negative unknown) (unknown) (no (unknown) (unknown) Bedside Urine (units ( unknown) date) Ketone - Negative unknown) (unknown) (no (unknown) (unknown) Bedside Urine (units ( unknown) date) Leukocytes - unknown) Negative (unknown) (no (unknown) (unknown) Bedside Urine (units ( unknown) date) Nitrite - Negative unknown) (unknown) (no (unknown) (unknown) Bedside Urine (units ( unknown) date) Occult Blood - unknown) Negative (unknown) (no (unknown) (unknown) Bedside Urine (units ( unknown) date) Protein - Negative unknown) (unknown) (no (unknown) (unknown) Bedside Urine (units ( unknown) date) Urobilinogen - unknown) Negative (unknown) (no (unknown) (unknown) Bedside Urine pH 6 (units (unknown) date) unknown) (unknown) (no (unknown) (unknown) 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 unknown) (unknown) (no (unknown) (unknown) Blood Pressure (units (unknown) date) 140/70 02 unknown) 12:01 (unknown) (no (unknown) (unknown) Blood Pressure (units (unknown) date) 140/70 141/94 H unknown) (unknown) (no (unknown) (unknown) Blood Pressure (units (unknown) date) 181/85 H unknown) (unknown) (no (unknown) (unknown) Breathing (units (unkn own) date) unknown) (unknown) (no (unknown) (unknown) 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) unknown) (unknown) (no (unknown) (unknown) CK-MB (CK-2) Rel (units (unknown) date) Index TNP unknown) (unknown) (no (unknown) (unknown) CK-MB (CK-2) Rel (units (unknown) date) Index unknown) (unknown) (no (unknown) (unknown) CK-MB (CK-2) TNP (units (unknown) date) unknown) (unknown) (no (unknown) (unknown) CK-MB (CK-2) (units (u nknown) date) unknown) 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 (unknown) (no (unknown) (unknown) COVID19 -Nasal (units (unknown) date) RAPID/Pre-Proc Stat unknown) (unknown) (no (unknown) (unknown) CT abdomen pelvis (units (unknown) date) w con Stat unknown) (unknown) (no (unknown) (unknown) Calcium (8.4-10.2) (units (unknown) date) mg/dL unknown) (unknown) (no (unknown) (unknown) Calcium 10.4 H (units (unknown) date) (8.4-10.2) mg/dL unknown) (unknown) (no (unknown) (unknown) Carbon Dioxide (units (unknown) date) (22-32) mmol/L unknown) (unknown) (no (unknown) (unknown) Carbon Dioxide 32 (units (unknown) date) (22-32) mmol/L unknown) (unknown) (no (unknown) (unknown) Cardio (units (unkno wn) date) unknown) (unknown) (no (unknown) (unknown) Cardiovascular (units (unknown) date) unknown) (unknown) (no (unknown) (unknown) Cardiovascular: (units (unknown) date) Denies chest pain, unknown) Denies irregular heart rhythm, Denies (unknown) (no (unknown) (unknown) Chief Complaint: (units (unknown) date) Chest Pain unknown) (unknown) (no (unknown) (unknown) Chloride (98-107) (units (unknown) date) mmol/L unknown) (unknown) (no (unknown) (unknown) Chloride 98 (units (un known) date) (98-107) mmol/L unknown) (unknown) (no (unknown) (unknown) Complete Blood (units (unknown) date) Count AUTO DIFF unknown) Stat (unknown) (no (unknown) (unknown) Comprehensive (units ( unknown) date) Metabolic Panel unknown) Stat (unknown) (no (unknown) (unknown) Const (units (unkno wn) date) unknown) (unknown) (no (unknown) (unknown) Constitutional (units (unknown) date) unknown) (unknown) (no (unknown) (unknown) Constitutional: (units (unknown) date) Denies chills, unknown) Reports fatigue, Denies fever(s), Denies frequent (unknown) (no (unknown) (unknown) Course (units (unkno wn) date) unknown) (unknown) (no (unknown) (unknown) Creatinine (units (unk nown) date) (0.52-1.04) mg/dL unknown) (unknown) (no (unknown) (unknown) Creatinine 0.85 (units (unknown) date) (0.52-1.04) mg/dL unknown) (unknown) (no (unknown) (unknown) : 1935 (units (unknown) date) Acct:[id number] unknown) (unknown) (no (unknown) (unknown) Date of Service: (units (unknown) date) 12/06/22 unknown) (unknown) (no (unknown) (unknown) Denies frequent (units (unknown) date) falls, Denies loss unknown) of vision, Denies numbness, Denies tingling (unknown) (no (unknown) (unknown) Denies loss of (units (unknown) date) vision unknown) (unknown) (no (unknown) (unknown) Denies numbness (units (unknown) date) and Denies tingling unknown) (unknown) (no (unknown) (unknown) Departure (units (unkn own) date) unknown) (unknown) (no (unknown) (unknown) Discharge Plan (units (unknown) date) unknown) (unknown) (no (unknown) (unknown) Discontinued (units (u nknown) date) Medications unknown) (unknown) (no (unknown) (unknown) Documented By: KB (units (unknown) date) unknown) (unknown) (no (unknown) (unknown) ED Orders (units (unkn own) date) unknown) (unknown) (no (unknown) (unknown) ED, had a massive (units (unknown) date) bout of emesis and unknown) watery diarrhea in the ED. Patient states (unknown) (no (unknown) (unknown) EKG-12 Lead Stat (units (unknown) date) unknown) (unknown) (no (unknown) (unknown) ENT (units (unkno wn) date) unknown) (unknown) (no (unknown) (unknown) ER Physician: (units ( unknown) date) Vineet,Hyma P.A-C unknown) (unknown) (no (unknown) (unknown) Ears, Nose, Mouth, (units (unknown) date) and Throat: Denies unknown) change in voice, Denies dizziness, Denies (unknown) (no (unknown) (unknown) Ears:?hearing (units ( unknown) date) grossly normal unknown) bilaterally (unknown) (no (unknown) (unknown) Effort + (units (unkno wn) date) Inspection:?normal unknown) respiratory effort (unknown) (no (unknown) (unknown) Elevated TSH (units (u nknown) date) unknown) (unknown) (no (unknown) (unknown) Emergency Report (units (unknown) date) unknown) (unknown) (no (unknown) (unknown) Endocrine (units (unkn own) date) unknown) (unknown) (no (unknown) (unknown) Endocrine: Reports (units (unknown) date) fatigue, Denies unknown) flushing and Denies palpitations (unknown) (no (unknown) (unknown) Eos # (Auto) (units (u nknown) date) (0-450) /uL unknown) (unknown) (no (unknown) (unknown) Eos # (Auto) 300 (units (unknown) date) (0-450) /uL unknown) (unknown) (no (unknown) (unknown) Eos % (Auto) (2-4) (units (unknown) date) % unknown) (unknown) (no (unknown) (unknown) Eos % (Auto) 2.7 (units (unknown) date) (2-4) % unknown) (unknown) (no (unknown) (unknown) Esterase (units (unkno wn) date) unknown) (unknown) (no (unknown) (unknown) Estimated GFR > 60 (units (unknown) date) (>60) mL/min unknown) (unknown) (no (unknown) (unknown) Estimated GFR (units ( unknown) date) (>60) mL/min unknown) (unknown) (no (unknown) (unknown) Exam Narrative: (units (unknown) date) unknown) (unknown) (no (unknown) (unknown) Exam (units (unkno wn) date) unknown) (unknown) (no (unknown) (unknown) Eyes (units (unkno wn) date) unknown) (unknown) (no (unknown) (unknown) Eyes: Denies (units (u nknown) date) change in vision, unknown) Denies eye discharge, Denies irritation and (unknown) (no (unknown) (unknown) Face and (units (unkno wn) date) sinus:?normal unknown) facial exam and sinuses nontender (unknown) (no (unknown) (unknown) Family History (units (unknown) date) (Reviewed 12/06/22 unknown) @ 13:43 by Farshad Manley PA-C) (unknown) (no (unknown) (unknown) Father Lung cancer (units (unknown) date) unknown) (unknown) (no (unknown) (unknown) Flonase 50 mcg (units (unknown) date) unknown) (unknown) (no (unknown) (unknown) Flonase PRN Dry (units (unknown) date) Nasal Passages unknown) 07/24/22 (unknown) (no (unknown) (unknown) GI (units (unkno wn) date) unknown) (unknown) (no (unknown) (unknown) Gastrointestinal (units (unknown) date) unknown) (unknown) (no (unknown) (unknown) Gastrointestinal: (units (unknown) date) Reports abdominal unknown) pain, Denies change in bowel habits, Reports (unknown) (no (unknown) (unknown) General (units (unkno wn) date) unknown) (unknown) (no (unknown) (unknown) General:?appearanc (units (unknown) date) e normal, both eyes unknown) and all related structures (unknown) (no (unknown) (unknown) General:?cooperati (units (unknown) date) ve, healthy unknown) appearing and comfortable (unknown) (no (unknown) (unknown) General:?patient (units (unknown) date) alert, patient unknown) awake and patient oriented x3 (unknown) (no (unknown) (unknown) Genitourinary (units ( unknown) date) unknown) (unknown) (no (unknown) (unknown) Genitourinary: (units (unknown) date) Denies hematuria, unknown) Denies flank pain, Denies urinary incontinence (unknown) (no (unknown) (unknown) Globulin (1.7-4.1) (units (unknown) date) g/dL unknown) (unknown) (no (unknown) (unknown) Globulin 3.2 (units (u nknown) date) (1.7-4.1) g/dL unknown) (unknown) (no (unknown) (unknown) Glucose (80-110) (units (unknown) date) mg/dL unknown) (unknown) (no (unknown) (unknown) Glucose 114 H (units ( unknown) date) (80-110) mg/dL unknown) (unknown) (no (unknown) (unknown) H/O hysterectomy (units (unknown) date) with oophorectomy unknown) (unknown) (no (unknown) (unknown) 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 (unknown) (no (unknown) (unknown) HENMT (units (unkno wn) date) unknown) (unknown) (no (unknown) (unknown) HPI - Abdominal (units (unknown) date) Pain unknown) (unknown) (no (unknown) (unknown) HPI narrative: (units (unknown) date) unknown) (unknown) (no (unknown) (unknown) HTN (hypertension) (units (unknown) date) unknown) (unknown) (no (unknown) (unknown) Hct (36-46) % (units ( unknown) date) unknown) (unknown) (no (unknown) (unknown) Hct 44.9 (36-46) % (units (unknown) date) unknown) (unknown) (no (unknown) (unknown) Head:?normal to (units (unknown) date) inspection unknown) (unknown) (no (unknown) (unknown) Hematologic/Lympha (units (unknown) date) tic unknown) (unknown) (no (unknown) (unknown) Hematologic/Lympha (units (unknown) date) tic: Denies easy unknown) bruising (unknown) (no (unknown) (unknown) Hgb (12.0-16.0) (units (unknown) date) g/dL unknown) (unknown) (no (unknown) (unknown) Hgb 14.4 (units (unkno wn) date) (12.0-16.0) g/dL unknown) (unknown) (no (unknown) (unknown) History of Present (units (unknown) date) Illness unknown) (unknown) (no (unknown) (unknown) Home Medications (units (unknown) date) unknown) (unknown) (no (unknown) (unknown) Hx of heart artery (units (unknown) date) stent unknown) (unknown) (no (unknown) (unknown) Hyperlipidemia (units (unknown) date) unknown) (unknown) (no (unknown) (unknown) INHALATION PRN (units (unknown) date) (Reason: Shortness unknown) Of Breath Or Wheezing) (unknown) (no (unknown) (unknown) INR (0.9-1.3) (units ( unknown) date) unknown) (unknown) (no (unknown) (unknown) INR 1.1 (0.9-1.3) (units (unknown) date) unknown) (unknown) (no (unknown) (unknown) Ictotest Urine (units (unknown) date) Stat unknown) (unknown) (no (unknown) (unknown) Initial Vital (units ( unknown) date) Signs unknown) (unknown) (no (unknown) (unknown) Initial Vital (units ( unknown) date) Signs: unknown) (unknown) (no (unknown) (unknown) Integumentary/[place] (units (unknown) date) sts unknown) (unknown) (no (unknown) (unknown) [facility] (units (unknown) date) [address] unknown) [place] [address] (unknown) (no (unknown) (unknown) Lab Data (units (unkno wn) date) unknown) (unknown) (no (unknown) (unknown) Lab Results (units (un known) date) unknown) (unknown) (no (unknown) (unknown) Label Comments: (units (unknown) date) unknown) (unknown) (no (unknown) (unknown) Labs: (units (unkno wn) date) unknown) (unknown) (no (unknown) (unknown) Last Admin: (units (un known) date) 12/06/22 12:40 unknown) Dose: 4 mg (unknown) (no (unknown) (unknown) Lipase (23-300) (units (unknown) date) U/L unknown) (unknown) (no (unknown) (unknown) Lipase 79 (23-300) (units (unknown) date) U/L unknown) (unknown) (no (unknown) (unknown) Lipase Stat (units (un known) date) unknown) (unknown) (no (unknown) (unknown) Lymph # (Auto) (units (unknown) date) (4830-0963) /uL unknown) (unknown) (no (unknown) (unknown) Lymph # (Auto) 600 (units (unknown) date) L (5698-8967) /uL unknown) (unknown) (no (unknown) (unknown) Lymph % (Auto) (units (unknown) date) (25-40) % unknown) (unknown) (no (unknown) (unknown) Lymph % (Auto) 5.7 (units (unknown) date) L (25-40) % unknown) (unknown) (no (unknown) (unknown) MCH (26-34) PG (units (unknown) date) unknown) (unknown) (no (unknown) (unknown) MCH 27.1 (26-34) (units (unknown) date) PG unknown) (unknown) (no (unknown) (unknown) MCHC (30-36) % (units (unknown) date) unknown) (unknown) (no (unknown) (unknown) MCHC 32.2 (30-36) (units (unknown) date) % unknown) (unknown) (no (unknown) (unknown) MCV (80-100) fL (units (unknown) date) unknown) (unknown) (no (unknown) (unknown) MCV 84.3 (80-100) (units (unknown) date) fL unknown) (unknown) (no (unknown) (unknown) MDM - Abdominal (units (unknown) date) Pain unknown) (unknown) (no (unknown) (unknown) MDM Narrative (units ( unknown) date) unknown) (unknown) (no (unknown) (unknown) Magnesium (units (unkn own) date) (1.6-2.3) mg/dL unknown) (unknown) (no (unknown) (unknown) Magnesium 1.8 (units ( unknown) date) (1.6-2.3) mg/dL unknown) (unknown) (no (unknown) (unknown) Magnesium Stat (units (unknown) date) unknown) (unknown) (no (unknown) (unknown) Medical History (units (unknown) date) (Reviewed 12/06/22 unknown) @ 13:43 by Hyma Vineet, PA-C) (unknown) (no (unknown) (unknown) Medical decision (units (unknown) date) making narrative: unknown) (unknown) (no (unknown) (unknown) Medication (units (unk nown) date) Instructions unknown) Recorded Confirmed (unknown) (no (unknown) (unknown) Mode of arrival: (units (unknown) date) Ambulatory unknown) (unknown) (no (unknown) (unknown) [place] # (Auto) (units ( unknown) date) (0-900) /uL unknown) (unknown) (no (unknown) (unknown) [place] # (Auto) 500 (units (unknown) date) (0-900) /uL unknown) (unknown) (no (unknown) (unknown) [place] % (Auto) (units ( unknown) date) (3-14) % unknown) (unknown) (no (unknown) (unknown) [place] % (Auto) 4.5 (units (unknown) date) (3-14) % unknown) (unknown) (no (unknown) (unknown) Mother COPD (units (un known) date) (chronic unknown) obstructive pulmonary disease) (unknown) (no (unknown) (unknown) Mouth:?oral (units (un known) date) mucosae normal unknown) (unknown) (no (unknown) (unknown) Musculoskeletal (units (unknown) date) unknown) (unknown) (no (unknown) (unknown) Musculoskeletal: (units (unknown) date) Denies back pain, unknown) Denies muscle weakness, Denies neck pain, (unknown) (no (unknown) (unknown) NT-Pro-B Natriuret (units (unknown) date) Pep (<450) pg/mL unknown) (unknown) (no (unknown) (unknown) NT-Pro-B Natriuret (units (unknown) date) Pep 5440 H (<450) unknown) pg/mL (unknown) (no (unknown) (unknown) Narrative (units (unkn own) date) unknown) (unknown) (no (unknown) (unknown) Neck (units (unkno wn) date) unknown) (unknown) (no (unknown) (unknown) Neck:?normal (units (u nknown) date) visual inspection unknown) and no lymphadenopathy noted (unknown) (no (unknown) (unknown) Neuro (units (unkno wn) date) unknown) (unknown) (no (unknown) (unknown) Neurologic (units (unk nown) date) unknown) (unknown) (no (unknown) (unknown) Neurologic: Denies (units (unknown) date) behavioral changes, unknown) Denies confusion, Denies dizziness, (unknown) (no (unknown) (unknown) Neut # (Auto) (units ( unknown) date) (9091-4618) /uL unknown) (unknown) (no (unknown) (unknown) Neut # (Auto) 9700 (units (unknown) date) H (6461-0429) /uL unknown) (unknown) (no (unknown) (unknown) Neut % (Auto) (units ( unknown) date) (50-75) % unknown) (unknown) (no (unknown) (unknown) Neut % (Auto) 86.7 (units (unknown) date) H (50-75) % unknown) (unknown) (no (unknown) (unknown) No Action (units (unkn own) date) unknown) (unknown) (no (unknown) (unknown) Nose:?external (units (unknown) date) nose normal unknown) (unknown) (no (unknown) (unknown) Ondansetron HCl (units (unknown) date) (Ondansetron 4 Mg/2 unknown) Ml Inj) 4 mg IV NOW ONE (unknown) (no (unknown) (unknown) Ordered: (units (unkno wn) date) unknown) (unknown) (no (unknown) (unknown) Orders (units (unkno wn) date) unknown) (unknown) (no (unknown) (unknown) Oxygen Delivery (units (unknown) date) Method 12/06/22 unknown) 12:01 (unknown) (no (unknown) (unknown) Oxygen Delivery (units (unknown) date) Method Room Air unknown) Nasal Cannula (unknown) (no (unknown) (unknown) Oxygen Delivery (units (unknown) date) Method unknown) (unknown) (no (unknown) (unknown) Oxygen Flow Rate 2 (units (unknown) date) unknown) (unknown) (no (unknown) (unknown) Oxygen Flow Rate (units (unknown) date) unknown) (unknown) (no (unknown) (unknown) PRN (Reason: Dry (units (unknown) date) Nasal Passages) unknown) (unknown) (no (unknown) (unknown) PT (10.1-12.7) (units (unknown) date) SECONDS unknown) (unknown) (no (unknown) (unknown) PT 12.1 (units (unkno wn) date) (10.1-12.7) SECONDS unknown) (unknown) (no (unknown) (unknown) Pain (units (unkno wn) date) unknown) (unknown) (no (unknown) (unknown) Partial (units (unkno wn) date) Thromboplastin Time unknown) Stat (unknown) (no (unknown) (unknown) Patient History (units (unknown) date) unknown) (unknown) (no (unknown) (unknown) Patient: (units (unkno wn) date) Roselyn Mejia unknown) MR#: [id number] (unknown) (no (unknown) (unknown) Plt Count (units (unkn own) date) (150-400) X103/uL unknown) (unknown) (no (unknown) (unknown) Plt Count 216 (units ( unknown) date) (150-400) X103/uL unknown) (unknown) (no (unknown) (unknown) Point of Care (units ( unknown) date) Testing unknown) (unknown) (no (unknown) (unknown) Point of care (units ( unknown) date) testing: unknown) (unknown) (no (unknown) (unknown) Potassium (units (unkn own) date) (3.4-5.1) mmol/L unknown) (unknown) (no (unknown) (unknown) Potassium 4.6 (units ( unknown) date) (3.4-5.1) mmol/L unknown) (unknown) (no (unknown) (unknown) Prescriptions: (units (unknown) date) unknown) (unknown) (no (unknown) (unknown) Prothrombin Time (units (unknown) date) INR Stat unknown) (unknown) (no (unknown) (unknown) Psychiatric (units (un known) date) unknown) (unknown) (no (unknown) (unknown) Psychiatric: Denies (units (unknown) date) anxiety, Denies unknown) behavioral changes, Denies confusion, Denies (unknown) (no (unknown) (unknown) Pulse Oximetry 96 (units (unknown) date) 99 unknown) (unknown) (no (unknown) (unknown) Pulse Oximetry 97 (units (unknown) date) 12/06/22 12:01 unknown) (unknown) (no (unknown) (unknown) Pulse Oximetry 97 (units (unknown) date) 99 unknown) (unknown) (no (unknown) (unknown) Pulse Rate 81 86 (units (unknown) date) unknown) (unknown) (no (unknown) (unknown) Pulse Rate 84 (units ( unknown) date) 12/06/22 12:01 unknown) (unknown) (no (unknown) (unknown) Pulse Rate 84 99 H (units (unknown) date) unknown) (unknown) (no (unknown) (unknown) RBC (4.0-5.2) (units ( unknown) date) X106/uL unknown) (unknown) (no (unknown) (unknown) RBC 5.32 H (units (unk nown) date) (4.0-5.2) X106/uL unknown) (unknown) (no (unknown) (unknown) RDW (11.6-14.8) % (units (unknown) date) unknown) (unknown) (no (unknown) (unknown) RDW 16.6 H (units (unk nown) date) (11.6-14.8) % unknown) (unknown) (no (unknown) (unknown) ROS Unobtainable: (units (unknown) date) All systems unknown) reviewed + are unremarkable except as noted in HPI (unknown) (no (unknown) (unknown) Rate:?regular rate (units (unknown) date) unknown) (unknown) (no (unknown) (unknown) Referrals: (units (unk nown) date) unknown) (unknown) (no (unknown) (unknown) Related Data (units (u nknown) date) unknown) (unknown) (no (unknown) (unknown) Resp (units (unkno wn) date) unknown) (unknown) (no (unknown) (unknown) Respiratory Rate (units (unknown) date) 16 12/06/22 12:01 unknown) (unknown) (no (unknown) (unknown) Respiratory Rate (units (unknown) date) 16 18 unknown) (unknown) (no (unknown) (unknown) Respiratory Rate (units (unknown) date) 20 unknown) (unknown) (no (unknown) (unknown) Respiratory (units (un known) date) unknown) (unknown) (no (unknown) (unknown) Respiratory: Denies (units (unknown) date) cough, Denies unknown) dyspnea, Denies dyspnea on exertion and Denies (unknown) (no (unknown) (unknown) Review of Systems (units (unknown) date) unknown) (unknown) (no (unknown) (unknown) Rhythm:?regular (units (unknown) date) rhythm unknown) (unknown) (no (unknown) (unknown) Robitussin DM To (units (unknown) date) Go 10 ml PO PRN unknown) Cough 07/24/22 (unknown) (no (unknown) (unknown) Robitussin DM To (units (unknown) date) Go unknown) (unknown) (no (unknown) (unknown) Rx Instructions: (units (unknown) date) unknown) (unknown) (no (unknown) (unknown) SARS-CoV-2 (PCR) (units (unknown) date) (Negative) unknown) (unknown) (no (unknown) (unknown) SARS-CoV-2 (PCR) (units (unknown) date) Negative (Negative) unknown) (unknown) (no (unknown) (unknown) Signed By: (units (unk nown) date) unknown) (unknown) (no (unknown) (unknown) Skin (units (unkno wn) date) unknown) (unknown) (no (unknown) (unknown) Skin/Breast: (units (u nknown) date) Denies pruritus, unknown) Denies erythema, Denies rash and Denies wounds (unknown) (no (unknown) (unknown) Smoking Status: (units (unknown) date) Former smoker unknown) (unknown) (no (unknown) (unknown) Social History (units (unknown) date) (Reviewed 12/06/22 unknown) @ 13:43 by Farshad Manley PA-C) (unknown) (no (unknown) (unknown) Sodium (137-145) (units (unknown) date) mmol/L unknown) (unknown) (no (unknown) (unknown) Sodium 139 (units (unk nown) date) (137-145) mmol/L unknown) (unknown) (no (unknown) (unknown) Source: patient (units (unknown) date) unknown) (unknown) (no (unknown) (unknown) Stated Complaint: (units (unknown) date) doesn't feel good unknown) stomach to chest (unknown) (no (unknown) (unknown) Status post (units (un known) date) cholecystectomy unknown) (unknown) (no (unknown) (unknown) Stool Occult Blood (units (unknown) date) Negative unknown) (unknown) (no (unknown) (unknown) Stop: 12/06/22 (units (unknown) date) 12:07 unknown) (unknown) (no (unknown) (unknown) Stop: 12/06/22 (units (unknown) date) 13:16 unknown) (unknown) (no (unknown) (unknown) Substance Use (units ( unknown) date) Type: does not use unknown) (unknown) (no (unknown) (unknown) Sulfa (Sulfonamide (units (unknown) date) Allergy unknown) Intermediate rash Verified 07/26/22 18:34 (unknown) (no (unknown) (unknown) Surgical History (units (unknown) date) (Reviewed 12/06/22 unknown) @ 13:43 by Farshad Manley PA-C) (unknown) (no (unknown) (unknown) TAKE 1 CAPSULE BY (units (unknown) date) MOUTH ONCE DAILY unknown) (unknown) (no (unknown) (unknown) TAKE 1 TABLET BY (units (unknown) date) MOUTH ONCE DAILY IN unknown) THE MORNING (unknown) (no (unknown) (unknown) TAKE 1 TABLET BY (units (unknown) date) MOUTH ONCE DAILY unknown) (unknown) (no (unknown) (unknown) Temperature 98 F (units (unknown) date) 12/06/22 12:01 unknown) (unknown) (no (unknown) (unknown) Temperature 98 F (units (unknown) date) unknown) (unknown) (no (unknown) (unknown) Temperature (units (un known) date) unknown) (unknown) (no (unknown) (unknown) Throat:?posterior (units (unknown) date) oropharynx normal unknown) (unknown) (no (unknown) (unknown) Time Seen by (units (u nknown) date) Provider: 12/06/22 unknown) 12:15 (unknown) (no (unknown) (unknown) Total Bilirubin (units (unknown) date) (0.2-1.3) mg/dL unknown) (unknown) (no (unknown) (unknown) Total Bilirubin (units (unknown) date) 1.1 (0.2-1.3) mg/dL unknown) (unknown) (no (unknown) (unknown) Total Creatine (units (unknown) date) Kinase (30-135) U/L unknown) (unknown) (no (unknown) (unknown) Total Creatine (units (unknown) date) Kinase 50 (30-135) unknown) U/L (unknown) (no (unknown) (unknown) Total Protein (units ( unknown) date) (6.3-8.2) g/dL unknown) (unknown) (no (unknown) (unknown) Total Protein 7.6 (units (unknown) date) (6.3-8.2) g/dL unknown) (unknown) (no (unknown) (unknown) Troponin + CK (units ( unknown) date) Cardiac Panel Stat unknown) (unknown) (no (unknown) (unknown) Troponin I (units (unk nown) date) (0.01-0.034) ng/mL unknown) (unknown) (no (unknown) (unknown) Troponin I 0.021 (units (unknown) date) (0.01-0.034) ng/mL unknown) (unknown) (no (unknown) (unknown) Type and Screen (units (unknown) date) Stat unknown) (unknown) (no (unknown) (unknown) Unstable angina (units (unknown) date) unknown) (unknown) (no (unknown) (unknown) Ur Bilirubin (units (u nknown) date) Confirm (Negative) unknown) (unknown) (no (unknown) (unknown) Ur Bilirubin (units (u nknown) date) Confirm Negative unknown) (Negative) (unknown) (no (unknown) (unknown) Urine Dip (units (unkn own) date) unknown) (unknown) (no (unknown) (unknown) Urine Specific (units (unknown) date) Supply 1.025 unknown) (unknown) (no (unknown) (unknown) Valvular heart (units (unknown) date) disease unknown) (unknown) (no (unknown) (unknown) Vital Signs - 8 hr (units (unknown) date) unknown) (unknown) (no (unknown) (unknown) Vital Signs (units (un known) date) unknown) (unknown) (no (unknown) (unknown) Vital signs: (units (u nknown) date) unknown) (unknown) (no (unknown) (unknown) WBC (4.5-11.0) (units (unknown) date) X103/uL unknown) (unknown) (no (unknown) (unknown) WBC 11.2 H (units (unk nown) date) (4.5-11.0) X103/uL unknown) (unknown) (no (unknown) (unknown) Katy Salazar, (units (unknown) date) 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 [Primary Care unknown) Provider] (unknown) (no (unknown) (unknown) XR chest 1V Stat (units (unknown) date) unknown) (unknown) (no (unknown) (unknown) [Embedded Image (units (unknown) date) Not Available] unknown) (unknown) (no (unknown) (unknown) [From Bactrim] (units (unknown) date) unknown) (unknown) (no (unknown) (unknown) [From Trilipix] (units (unknown) date) Upset unknown) (unknown) (no (unknown) (unknown) acarbose Allergy (units (unknown) date) Intermediate unknown) Abdominal Verified 07/26/22 18:34 (unknown) (no (unknown) (unknown) albuterol 90 (units (u nknown) date) mcg/actuation unknown) Aerosol (unknown) (no (unknown) (unknown) albuterol 90 (units (u nknown) date) mcg/actuation unknown) aerosol 90 mcg inhalation PRN Shortness Of 07/24/22 (unknown) (no (unknown) (unknown) alcohol intake (units (unknown) date) frequency: 0-2 unknown) drinks per day (unknown) (no (unknown) (unknown) alcohol intake: (units (unknown) date) never unknown) (unknown) (no (unknown) (unknown) amlodipine Allergy (units (unknown) date) Intermediate unknown) Verified 07/26/22 18:34 (unknown) (no (unknown) (unknown) and Denies (units (unk nown) date) orthopnea unknown) (unknown) (no (unknown) (unknown) and Denies urinary (units (unknown) date) urgency unknown) (unknown) (no (unknown) (unknown) and Denies (units (unk nown) date) weakness unknown) (unknown) (no (unknown) (unknown) and below (units (unkn own) date) unknown) (unknown) (no (unknown) (unknown) aspirin 81 MG (units ( unknown) date) tablet,delayed unknown) release (DR/EC) (unknown) (no (unknown) (unknown) aspirin 81 mg (units ( unknown) date) tablet,delayed 81 unknown) mg PO QDAY ##0 09/14/17 07/24/22 (unknown) (no (unknown) (unknown) atorvastatin 20 mg (units (unknown) date) tablet (Lipitor) 40 unknown) mg PO QPM 07/08/22 07/24/22 (unknown) (no (unknown) (unknown) atorvastatin (units (u nknown) date) [Lipitor] 20 mg unknown) tablet (unknown) (no (unknown) (unknown) budesonide [From (units (unknown) date) Symbicort] Allergy unknown) Mild Anxiety Verified 07/26/22 18:34 (unknown) (no (unknown) (unknown) capsule,extended (units (unknown) date) release 24 hr unknown) (unknown) (no (unknown) (unknown) carvedilol Allergy (units (unknown) date) Mild Rash Verified unknown) 07/26/22 18:34 (unknown) (no (unknown) (unknown) chlorthalidone (units (unknown) date) Allergy unknown) Intermediate Redness of Verified 07/26/22 18:34 (unknown) (no (unknown) (unknown) choline (units (unkno wn) date) fenofibrate Allergy unknown) Mild Gastrointestinal Verified 07/26/22 18:34 (unknown) (no (unknown) (unknown) clopidogrel 75 mg (units (unknown) date) tablet 75 mg PO QAM unknown) 07/24/22 07/24/22 (unknown) (no (unknown) (unknown) clopidogrel 75 mg (units (unknown) date) tablet unknown) (unknown) (no (unknown) (unknown) constipation. (units ( unknown) date) Patient has a unknown) history of AAA, 2 saccular aneurysms above the (unknown) (no (unknown) (unknown) cyclobenzaprine 10 (units (unknown) date) mg Tablet unknown) (unknown) (no (unknown) (unknown) cyclobenzaprine 10 (units (unknown) date) mg tablet 10 mg PO unknown) TID PRN Muscle Spasm 07/24/22 07/24/22 (unknown) (no (unknown) (unknown) depression, Denies (units (unknown) date) homicidal ideation unknown) and Denies suicidal ideation (unknown) (no (unknown) (unknown) diarrhea, Denies (units (unknown) date) nausea and Reports unknown) vomiting (unknown) (no (unknown) (unknown) diarrhea. Concern (units (unknown) date) for ACS versus CHF unknown) exacerbation versus ruptured AAA vs (unknown) (no (unknown) (unknown) diltiazem HCl 120 (units (unknown) date) mg 120 mg PO QAM unknown) 07/08/22 07/24/22 (unknown) (no (unknown) (unknown) diltiazem HCl (units ( unknown) date) [Cartia XT] 120 mg unknown) capsule,extended release 24hr (unknown) (no (unknown) (unknown) doxazosin [From (units (unknown) date) Cardura] Allergy unknown) Intermediate Rash Verified 07/26/22 18:34 (unknown) (no (unknown) (unknown) doxycycline (units (un known) date) Allergy unknown) Intermediate Rash Verified 07/26/22 18:34 (unknown) (no (unknown) (unknown) falls, Denies (units ( unknown) date) lethargy and Denies unknown) weakness (unknown) (no (unknown) (unknown) formoterol [From (units (unknown) date) Symbicort] Allergy unknown) Mild Anxiety Verified 07/26/22 18:34 (unknown) (no (unknown) (unknown) furosemide 40 mg (units (unknown) date) tablet 40 mg PO QAM unknown) 07/08/22 07/08/22 (unknown) (no (unknown) (unknown) furosemide 40 mg (units (unknown) date) tablet unknown) (unknown) (no (unknown) (unknown) gastroenteritis (units (unknown) date) versus dehydration unknown) versus other intra-abdominal pathology. Will (unknown) (no (unknown) (unknown) gemfibrozil (units (un known) date) Allergy unknown) Intermediate Rash Verified 07/26/22 18:34 (unknown) (no (unknown) (unknown) history of (units (unk nown) date) constipation. unknown) Patient states that she more often has diarrhea than (unknown) (no (unknown) (unknown) household members: (units (unknown) date) family and children unknown) (unknown) (no (unknown) (unknown) inhaler Breath (units (unknown) date) unknown) (unknown) (no (unknown) (unknown) ipratropium 0.5 (units (unknown) date) mg-albuterol 3 mg unknown) ml inhalation PRN Shortness Of 07/24/22 (unknown) (no (unknown) (unknown) ipratropium-albute (units (unknown) date) rol 0.5 mg-3 mg(2.5 unknown) mg base)/3 mL solution for nebulization (unknown) (no (unknown) (unknown) isosorbide (units (unk nown) date) mononitrate 120 mg unknown) 120 mg PO QAM 07/08/22 07/24/22 (unknown) (no (unknown) (unknown) isosorbide (units (unk nown) date) mononitrate 120 mg unknown) tablet extended release 24 hr (unknown) (no (unknown) (unknown) level of the renal (units (unknown) date) arteries. unknown) (unknown) (no (unknown) (unknown) levofloxacin (units (u nknown) date) Allergy unknown) Intermediate Rash Verified 07/26/22 18:34 (unknown) (no (unknown) (unknown) levothyroxine 88 (units (unknown) date) mcg tablet 88 mcg unknown) PO QAM 07/08/22 07/24/22 (unknown) (no (unknown) (unknown) levothyroxine 88 (units (unknown) date) mcg tablet unknown) (unknown) (no (unknown) (unknown) lightheadedness, (units (unknown) date) Denies unknown) palpitations, Denies dyspnea, Denies dyspnea on exertion (unknown) (no (unknown) (unknown) lisinopril 40 mg (units (unknown) date) tablet 20 mg PO QAM unknown) 07/08/22 07/24/22 (unknown) (no (unknown) (unknown) lisinopril 40 mg (units (unknown) date) tablet unknown) (unknown) (no (unknown) (unknown) losartan Allergy (units (unknown) date) Intermediate Rash unknown) Verified 07/26/22 18:34 (unknown) (no (unknown) (unknown) metoprolol AdvReac (units (unknown) date) Intermediate unknown) Verified 07/26/22 18:34 (unknown) (no (unknown) (unknown) metoprolol (units (unk nown) date) succinate 25 mg 25 unknown) mg PO DAILY 07/24/22 07/24/22 (unknown) (no (unknown) (unknown) metoprolol (units (unk nown) date) succinate 25 mg unknown) tablet extended release 24 hr (unknown) (no (unknown) (unknown) montelukast [From (units (unknown) date) Singulair] Allergy unknown) Intermediate Difficulty Verified 07/26/22 (unknown) (no (unknown) (unknown) morning (units (unkno wn) date) unknown) (unknown) (no (unknown) (unknown) multivitamin 1 tab (units (unknown) date) PO DAILY 09/10/18 unknown) 07/24/22 (unknown) (no (unknown) (unknown) multivitamin (units (u nknown) date) Tablet,Chewable unknown) (unknown) (no (unknown) (unknown) neck pain, Denies (units (unknown) date) sore throat and unknown) Denies throat swelling (unknown) (no (unknown) (unknown) nifedipine Allergy (units (unknown) date) Intermediate Chills unknown) Verified 07/26/22 18:34 (unknown) (no (unknown) (unknown) nitroglycerin 0.4 (units (unknown) date) mg sublingual 0.4 unknown) mg sublingual Q5-15M PRN Chest 09/10/18 (unknown) (no (unknown) (unknown) nitroglycerin (units ( unknown) date) [Nitrostat] 0.4 mg unknown) Tablet, Sublingual (unknown) (no (unknown) (unknown) obtain labs, (units (u nknown) date) lipase, troponin, unknown) BNP, chest x-ray, EKG, CT abdomen pelvis. (unknown) (no (unknown) (unknown) of breath, (units (unk nown) date) dysuria, unknown) lightheadedness, dizziness, syncope. Patient states that (unknown) (no (unknown) (unknown) omega (units (unkno wn) date) 8-fvb-mgr-fish oil unknown) 1,000 mg 1,000 mg PO DAILY 09/10/18 07/24/22 (unknown) (no (unknown) (unknown) omega (units (unkno wn) date) 8-meg-soj-fish oil unknown) [Fish Oil] 1,000 mg (120 mg-180 mg) Capsule (unknown) (no (unknown) (unknown) patient states she (units (unknown) date) forgets to take unknown) (unknown) (no (unknown) (unknown) presents to the ED (units (unknown) date) with 1 day of unknown) abdominal pain. Patient states she is feeling (unknown) (no (unknown) (unknown) presents to the ED (units (unknown) date) with 1 day of unknown) abdominal pain. 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 unknown) d/c 07/14/22 (unknown) (no (unknown) (unknown) release (units (unkno wn) date) unknown) (unknown) (no (unknown) (unknown) rest in her car (units (unknown) date) for a little bit unknown) but felt worse. Patient drove herself to the (unknown) (no (unknown) (unknown) she ate some salad (units (unknown) date) any bread stick at unknown) [employer] yesterday. Patient denies a (unknown) (no (unknown) (unknown) soln (units (unkno wn) date) unknown) (unknown) (no (unknown) (unknown) sulfamethoxazole (units (unknown) date) Allergy unknown) Intermediate Rash Verified 07/26/22 18:34 (unknown) (no (unknown) (unknown) tablet (Nitrostat) (units (unknown) date) Pain unknown) (unknown) (no (unknown) (unknown) tablet,extended (units (unknown) date) release 24 hr unknown) (unknown) (no (unknown) (unknown) tenderness. (units (un known) date) unknown) (unknown) (no (unknown) (unknown) that she had no (units (unknown) date) other symptoms unknown) including fevers, chills, chest pain, shortness (unknown) (no (unknown) (unknown) tobacco type: (units ( unknown) date) cigarettes unknown) (unknown) (no (unknown) (unknown) torsemide 20 mg (units (unknown) date) Tablet unknown) (unknown) (no (unknown) (unknown) torsemide 20 mg (units (unknown) date) tablet 20 mg PO unknown) DAILY 07/24/22 07/24/22 (unknown) (no (unknown) (unknown) trimethoprim [From (units (unknown) date) Bactrim] Allergy unknown) Intermediate Rash Verified 07/26/22 18:34 (unknown) (no (unknown) (unknown) up feeling fine, (units (unknown) date) went to [employer] unknown) study, it a little bit of fruit including (unknown) (no (unknown) (unknown) vitamin E 268 mg (units (unknown) date) (400 unit) capsule unknown) 400 unit PO DAILY 09/10/18 07/24/22 (unknown) (no (unknown) (unknown) vitamin E 400 unit (units (unknown) date) Capsule unknown) (unknown) (no (unknown) (unknown) watermelon, (units (un known) date) grapes, unknown) blackberries, felt uncomfortable in her abdomen, tried to (unknown) (no (unknown) (unknown) well and (units (unkno wn) date) symptom-free after unknown) she had a massive bout of emesis and watery (unknown) (no (unknown) (unknown) wheezing (units (unkno wn) date) unknown) Result panel 1770 (unknown) (no date) (unknown) (unknown) 49 u/l (unkn own) (unknown) (no date) (unknown) (unknown) Test not % (unkn own) performed (unknown) (no date) (unknown) (unknown) Test not % (unkn own) performed (unknown) (no date) (unknown) (unknown) Test not ng/ml (unkn own) performed (unknown) (no date) (unknown) (unknown) Test not ng/ml (unkn own) performed Result panel 1771 (unknown) (no date) (unknown) (unknown) 0.017 ng/ml (unkn own) (unknown) (no date) (unknown) (unknown) 0.017 ng/ml (unkn own) (unknown) (no date) (unknown) (unknown) 49 u/l (unkn own) (unknown) (no date) (unknown) (unknown) Test not % (unkn own) performed (unknown) (no date) (unknown) (unknown) Test not % (unkn own) performed (unknown) (no date) (unknown) (unknown) Test not ng/ml (unkn own) performed (unknown) (no date) (unknown) (unknown) Test not ng/ml (unkn own) performed Result panel 1772 (unknown) (no date) (unknown) (unknown) A Negative (units (un known) unknown) (unknown) (no date) (unknown) (unknown) NEGATIVE (units (unkn own) unknown) Result panel 1773 (unknown) (no (unknown) (unknown) (no value) (units (unk nown) date) unknown) (unknown) (no (unknown) (unknown) <Electronically (units (unknown) date) signed by Farshad unknown) P.A-C Vineet> (unknown) (no (unknown) (unknown) (120 mg-180 mg) (units (unknown) date) capsule (Fish Oil) unknown) (unknown) (no (unknown) (unknown) (2.5 mg base)/3 mL (units (unknown) date) nebulization Breath unknown) Or Wheezing (unknown) (no (unknown) (unknown) (Cartia XT) (units (un known) date) unknown) (unknown) (no (unknown) (unknown) 0.4 mg SUBLINGUAL (units (unknown) date) Q5-15M PRN (Reason: unknown) Chest Pain) (unknown) (no (unknown) (unknown) 12/06/22 12/06/22 (units (unknown) date) 12/06/22 unknown) Range/Units (unknown) (no (unknown) (unknown) 12/06/22 12/06/22 (units (unknown) date) Range/Units unknown) (unknown) (no (unknown) (unknown) 12/06/22 12:07 (units (unknown) date) unknown) (unknown) (no (unknown) (unknown) 12/06/22 12:10 (units (unknown) date) unknown) (unknown) (no (unknown) (unknown) 12/06/22 12:25 (units (unknown) date) unknown) (unknown) (no (unknown) (unknown) 12/06/22 12:34 (units (unknown) date) unknown) (unknown) (no (unknown) (unknown) 12/06/22 13:31 (units (unknown) date) unknown) (unknown) (no (unknown) (unknown) 12/06/22 14:16 (units (unknown) date) unknown) (unknown) (no (unknown) (unknown) 12/06/22 14:35 (units (unknown) date) unknown) (unknown) (no (unknown) (unknown) 12/06/22 1804 (units ( unknown) date) unknown) (unknown) (no (unknown) (unknown) 12/06/22 (units (unkno wn) date) unknown) (unknown) (no (unknown) (unknown) [id number] (units (unkno wn) date) unknown) (unknown) (no (unknown) (unknown) 07/24/22 (units (unkno wn) date) unknown) (unknown) (no (unknown) (unknown) 1 tab PO DAILY (units (unknown) date) unknown) (unknown) (no (unknown) (unknown) 1,000 mg PO DAILY (units (unknown) date) unknown) (unknown) (no (unknown) (unknown) 10 mg PO TID PRN (units (unknown) date) (Reason: Muscle unknown) Spasm) (unknown) (no (unknown) (unknown) 10 ml PO PRN (units (u nknown) date) (Reason: Cough) unknown) (unknown) (no (unknown) (unknown) 10-100mg/5ml (units (u nknown) date) liquid. take 10ml unknown) by mouth every 4 hrs as needed for cough (unknown) (no (unknown) (unknown) 120 mg PO QAM (units ( unknown) date) unknown) (unknown) (no (unknown) (unknown) 12:01 12/06/22 (units (unknown) date) unknown) (unknown) (no (unknown) (unknown) 12:25 12:34 12:34 (units (unknown) date) unknown) (unknown) (no (unknown) (unknown) 12:30 12/06/22 (units (unknown) date) unknown) (unknown) (no (unknown) (unknown) 12:30 (units (unkno wn) date) unknown) (unknown) (no (unknown) (unknown) 12:34 12:34 12:34 (units (unknown) date) unknown) (unknown) (no (unknown) (unknown) 13:29 12/06/22 (units (unknown) date) unknown) (unknown) (no (unknown) (unknown) 13:30 12/06/22 (units (unknown) date) unknown) (unknown) (no (unknown) (unknown) 13:30 (units (unkno wn) date) unknown) (unknown) (no (unknown) (unknown) 14:00 12/06/22 (units (unknown) date) unknown) (unknown) (no (unknown) (unknown) 14:12 12/06/22 (units (unknown) date) unknown) (unknown) (no (unknown) (unknown) 14:12 (units (unkno wn) date) unknown) (unknown) (no (unknown) (unknown) 14:16 14:35 (units (un known) date) unknown) (unknown) (no (unknown) (unknown) 14:21 12/06/22 (units (unknown) date) unknown) (unknown) (no (unknown) (unknown) 14:30 12/06/22 (units (unknown) date) unknown) (unknown) (no (unknown) (unknown) 14:30 (units (unkno wn) date) unknown) (unknown) (no (unknown) (unknown) 14:40 12/06/22 (units (unknown) date) unknown) (unknown) (no (unknown) (unknown) 14:40 (units (unkno wn) date) unknown) (unknown) (no (unknown) (unknown) 14:50 12/06/22 (units (unknown) date) unknown) (unknown) (no (unknown) (unknown) 15:00 (units (unkno wn) date) unknown) (unknown) (no (unknown) (unknown) 15:01 12/06/22 (units (unknown) date) unknown) (unknown) (no (unknown) (unknown) 15:10 12/06/22 (units (unknown) date) unknown) (unknown) (no (unknown) (unknown) 15:10 (units (unkno wn) date) unknown) (unknown) (no (unknown) (unknown) 15:20 12/06/22 (units (unknown) date) unknown) (unknown) (no (unknown) (unknown) 15:30 12/06/22 (units (unknown) date) unknown) (unknown) (no (unknown) (unknown) 15:30 (units (unkno wn) date) unknown) (unknown) (no (unknown) (unknown) 15:40 12/06/22 (units (unknown) date) unknown) (unknown) (no (unknown) (unknown) 15:40 (units (unkno wn) date) unknown) (unknown) (no (unknown) (unknown) 15:50 12/06/22 (units (unknown) date) unknown) (unknown) (no (unknown) (unknown) 16:00 12/06/22 (units (unknown) date) unknown) (unknown) (no (unknown) (unknown) 16:00 (units (unkno wn) date) unknown) (unknown) (no (unknown) (unknown) 16:10 12/06/22 (units (unknown) date) unknown) (unknown) (no (unknown) (unknown) 16:20 12/06/22 (units (unknown) date) unknown) (unknown) (no (unknown) (unknown) 16:20 (units (unkno wn) date) unknown) (unknown) (no (unknown) (unknown) 16:30 12/06/22 (units (unknown) date) unknown) (unknown) (no (unknown) (unknown) 16:30 (units (unkno wn) date) unknown) (unknown) (no (unknown) (unknown) 17:08 (units (unkno wn) date) unknown) (unknown) (no (unknown) (unknown) 18:34 (units (unkno wn) date) unknown) (unknown) (no (unknown) (unknown) 20 mg PO DAILY (units (unknown) date) unknown) (unknown) (no (unknown) (unknown) 20 mg PO QAM (units (u nknown) date) unknown) (unknown) (no (unknown) (unknown) 25 mg PO DAILY (units (unknown) date) unknown) (unknown) (no (unknown) (unknown) 40 mg PO QAM (units (u nknown) date) unknown) (unknown) (no (unknown) (unknown) 40 mg PO QPM (units (u nknown) date) unknown) (unknown) (no (unknown) (unknown) 400 unit PO DAILY (units (unknown) date) unknown) (unknown) (no (unknown) (unknown) 75 mg PO QAM (units (u nknown) date) unknown) (unknown) (no (unknown) (unknown) 81 mg PO QDAY Qty: (units (unknown) date) 0 unknown) (unknown) (no (unknown) (unknown) 86-year-old female (units (unknown) date) with past medical unknown) history NSTEMI, CHF, COPD, hypertension (unknown) (no (unknown) (unknown) 88 mcg PO QAM (units ( unknown) date) unknown) (unknown) (no (unknown) (unknown) 90 mcg INHALATION (units (unknown) date) PRN (Reason: unknown) Shortness Of Breath) (unknown) (no (unknown) (unknown) ALT (<35) IU/L (units (unknown) date) unknown) (unknown) (no (unknown) (unknown) ALT 21 (<35) IU/L (units (unknown) date) unknown) (unknown) (no (unknown) (unknown) APTT (26-36) (units (u nknown) date) SECONDS unknown) (unknown) (no (unknown) (unknown) APTT 33 (26-36) (units (unknown) date) SECONDS unknown) (unknown) (no (unknown) (unknown) AST (14-36) IU/L (units (unknown) date) unknown) (unknown) (no (unknown) (unknown) AST 30 (14-36) (units (unknown) date) IU/L unknown) (unknown) (no (unknown) (unknown) Abdomen is soft, (units (unknown) date) nondistended. unknown) Abdomen is diffusely tender to palpation. No CVA (unknown) (no (unknown) (unknown) Abdominal pain (units (unknown) date) unknown) (unknown) (no (unknown) (unknown) Activity (units (unkno wn) date) Restrictions/Additi unknown) onal Instructions: (unknown) (no (unknown) (unknown) Admin: 12/06/22 (units (unknown) date) 15:58 Dose: 116 unknown) mls/hr (unknown) (no (unknown) (unknown) Age/Sex: 86 / F (units (unknown) date) unknown) (unknown) (no (unknown) (unknown) Albumin (3.5-5.0) (units (unknown) date) g/dL unknown) (unknown) (no (unknown) (unknown) Albumin 4.4 (units (un known) date) (3.5-5.0) g/dL unknown) (unknown) (no (unknown) (unknown) Albumin/Globulin (units (unknown) date) Ratio (1.0-2.8) unknown) (unknown) (no (unknown) (unknown) Albumin/Globulin (units (unknown) date) Ratio 1.4 (1.0-2.8) unknown) (unknown) (no (unknown) (unknown) Alkaline (units (unkno wn) date) Phosphatase unknown) (38-126) U/L (unknown) (no (unknown) (unknown) Alkaline (units (unkno wn) date) Phosphatase 81 unknown) (38-126) U/L (unknown) (no (unknown) (unknown) Allergic/Immunolog (units (unknown) date) ic unknown) (unknown) (no (unknown) (unknown) Allergic/Immunolog (units (unknown) date) ic: Denies unknown) urticaria, Denies throat swelling and Denies (unknown) (no (unknown) (unknown) Allergies (units (unkn own) date) unknown) (unknown) (no (unknown) (unknown) Allergy/AdvReac (units (unknown) date) Type Severity unknown) Reaction Status Date / Time (unknown) (no (unknown) (unknown) 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 (unknown) (no (unknown) (unknown) Antibiotics) (units (u nknown) date) unknown) (unknown) (no (unknown) (unknown) Antibody Screen (units (unknown) date) Negative unknown) (unknown) (no (unknown) (unknown) Antibody Screen (units (unknown) date) unknown) (unknown) (no (unknown) (unknown) Aspirin (Aspirin (units (unknown) date) 81 Mg Chew Tab) 324 unknown) mg PO NOW ONE (unknown) (no (unknown) (unknown) Auscultation:?zheng (units (unknown) date) r to auscultation unknown) bilaterally (unknown) (no (unknown) (unknown) BNP [NT-proBNP (units (unknown) date) (BNP-Adult 18+)] unknown) Stat (unknown) (no (unknown) (unknown) BUN (7-17) mg/dL (units (unknown) date) unknown) (unknown) (no (unknown) (unknown) BUN 20 H (7-17) (units (unknown) date) mg/dL unknown) (unknown) (no (unknown) (unknown) BUN/Creatinine (units (unknown) date) Ratio (6-22) unknown) (unknown) (no (unknown) (unknown) BUN/Creatinine (units (unknown) date) Ratio 23.5 H (6-22) unknown) (unknown) (no (unknown) (unknown) Baso # (Auto) (units ( unknown) date) (0-100) /uL unknown) (unknown) (no (unknown) (unknown) Baso # (Auto) 0 (units (unknown) date) (0-100) /uL unknown) (unknown) (no (unknown) (unknown) Baso % (Auto) (units ( unknown) date) (0-2) % unknown) (unknown) (no (unknown) (unknown) Baso % (Auto) 0.4 (units (unknown) date) (0-2) % unknown) (unknown) (no (unknown) (unknown) Bedside Urine (units ( unknown) date) Bilirubin + 1 unknown) (unknown) (no (unknown) (unknown) Bedside Urine (units ( unknown) date) Glucose Negative unknown) (unknown) (no (unknown) (unknown) Bedside Urine (units ( unknown) date) Ketone - Negative unknown) (unknown) (no (unknown) (unknown) Bedside Urine (units ( unknown) date) Leukocytes - unknown) Negative (unknown) (no (unknown) (unknown) Bedside Urine (units ( unknown) date) Nitrite - Negative unknown) (unknown) (no (unknown) (unknown) Bedside Urine (units ( unknown) date) Occult Blood - unknown) Negative (unknown) (no (unknown) (unknown) Bedside Urine (units ( unknown) date) Protein - Negative unknown) (unknown) (no (unknown) (unknown) Bedside Urine (units ( unknown) date) Urobilinogen - unknown) Negative (unknown) (no (unknown) (unknown) Bedside Urine pH 6 (units (unknown) date) unknown) (unknown) (no (unknown) (unknown) 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 unknown) (unknown) (no (unknown) (unknown) Blood Pressure (units (unknown) date) 140/70 02 unknown) 12:01 (unknown) (no (unknown) (unknown) Blood Pressure (units (unknown) date) 140/70 141/94 H unknown) (unknown) (no (unknown) (unknown) Blood Pressure (units (unknown) date) 155/59 H unknown) (unknown) (no (unknown) (unknown) Blood Pressure (units (unknown) date) 170/73 H unknown) (unknown) (no (unknown) (unknown) Blood Pressure (units (unknown) date) 171/80 H unknown) (unknown) (no (unknown) (unknown) Blood Pressure (units (unknown) date) 179/84 H 179/81 H unknown) (unknown) (no (unknown) (unknown) Blood Pressure (units (unknown) date) 181/85 H unknown) (unknown) (no (unknown) (unknown) Blood Pressure (units (unknown) date) 183/85 H unknown) (unknown) (no (unknown) (unknown) Blood Pressure (units (unknown) date) 185/85 H 174/78 H unknown) (unknown) (no (unknown) (unknown) Blood Pressure (units (unknown) date) 186/87 H unknown) (unknown) (no (unknown) (unknown) Blood Pressure (units (unknown) date) 186/88 H 205/93 H unknown) (unknown) (no (unknown) (unknown) Blood Pressure (units (unknown) date) 189/84 H 182/94 H unknown) (unknown) (no (unknown) (unknown) Blood Pressure (units (unknown) date) 191/84 H unknown) (unknown) (no (unknown) (unknown) Blood Pressure (units (unknown) date) 198/86 H 188/103 H unknown) (unknown) (no (unknown) (unknown) Blood Type A (units (u nknown) date) Negative unknown) (unknown) (no (unknown) (unknown) Blood Type (units (unk nown) date) unknown) (unknown) (no (unknown) (unknown) Breathing (units (unkn own) date) unknown) (unknown) (no (unknown) (unknown) 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) unknown) (unknown) (no (unknown) (unknown) CK-MB (CK-2) Rel (units (unknown) date) Index TNP unknown) (unknown) (no (unknown) (unknown) CK-MB (CK-2) Rel (units (unknown) date) Index unknown) (unknown) (no (unknown) (unknown) CK-MB (CK-2) TNP (units (unknown) date) unknown) (unknown) (no (unknown) (unknown) CK-MB (CK-2) (units (u nknown) date) unknown) 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 (unknown) (no (unknown) (unknown) COVID19 -Nasal (units (unknown) date) RAPID/Pre-Proc Stat unknown) (unknown) (no (unknown) (unknown) CT abdomen pelvis (units (unknown) date) w con Stat unknown) (unknown) (no (unknown) (unknown) Calcium (8.4-10.2) (units (unknown) date) mg/dL unknown) (unknown) (no (unknown) (unknown) Calcium 10.4 H (units (unknown) date) (8.4-10.2) mg/dL unknown) (unknown) (no (unknown) (unknown) Carbon Dioxide (units (unknown) date) (22-32) mmol/L unknown) (unknown) (no (unknown) (unknown) Carbon Dioxide 32 (units (unknown) date) (22-32) mmol/L unknown) (unknown) (no (unknown) (unknown) Cardio (units (unkno wn) date) unknown) (unknown) (no (unknown) (unknown) Cardiovascular (units (unknown) date) unknown) (unknown) (no (unknown) (unknown) Cardiovascular: (units (unknown) date) Denies chest pain, unknown) Denies irregular heart rhythm, Denies (unknown) (no (unknown) (unknown) Chief Complaint: (units (unknown) date) Chest Pain unknown) (unknown) (no (unknown) (unknown) Chloride (98-107) (units (unknown) date) mmol/L unknown) (unknown) (no (unknown) (unknown) Chloride 98 (units (un known) date) (98-107) mmol/L unknown) (unknown) (no (unknown) (unknown) Clinical (units (unkno wn) date) Impression: unknown) (unknown) (no (unknown) (unknown) Complete Blood (units (unknown) date) Count AUTO DIFF unknown) Stat (unknown) (no (unknown) (unknown) Comprehensive (units ( unknown) date) Metabolic Panel unknown) Stat (unknown) (no (unknown) (unknown) Const (units (unkno wn) date) unknown) (unknown) (no (unknown) (unknown) Constitutional (units (unknown) date) unknown) (unknown) (no (unknown) (unknown) Constitutional: (units (unknown) date) Denies chills, unknown) Reports fatigue, Denies fever(s), Denies frequent (unknown) (no (unknown) (unknown) Course (units (unkno wn) date) unknown) (unknown) (no (unknown) (unknown) Creatinine (units (unk nown) date) (0.52-1.04) mg/dL unknown) (unknown) (no (unknown) (unknown) Creatinine 0.85 (units (unknown) date) (0.52-1.04) mg/dL unknown) (unknown) (no (unknown) (unknown) : 1935 (units (unknown) date) Acct:[id number] unknown) (unknown) (no (unknown) (unknown) Date of Service: (units (unknown) date) 12/06/22 unknown) (unknown) (no (unknown) (unknown) Denies frequent (units (unknown) date) falls, Denies loss unknown) of vision, Denies numbness, Denies tingling (unknown) (no (unknown) (unknown) Denies loss of (units (unknown) date) vision unknown) (unknown) (no (unknown) (unknown) Denies numbness (units (unknown) date) and Denies tingling unknown) (unknown) (no (unknown) (unknown) Departure (units (unkn own) date) unknown) (unknown) (no (unknown) (unknown) Discharge Plan (units (unknown) date) unknown) (unknown) (no (unknown) (unknown) Discontinued (units (u nknown) date) Medications unknown) (unknown) (no (unknown) (unknown) Documented By: KB (units (unknown) date) unknown) (unknown) (no (unknown) (unknown) Documented By: KLS (units (unknown) date) unknown) (unknown) (no (unknown) (unknown) ED Orders (units (unkn own) date) unknown) (unknown) (no (unknown) (unknown) ED, had a massive (units (unknown) date) bout of emesis and unknown) watery diarrhea in the ED. Patient states (unknown) (no (unknown) (unknown) EKG without acute (units (unknown) date) ST-T changes or unknown) other acute findings. Chest x-ray shows mild (unknown) (no (unknown) (unknown) EKG-12 Lead Stat (units (unknown) date) unknown) (unknown) (no (unknown) (unknown) ENT (units (unkno wn) date) unknown) (unknown) (no (unknown) (unknown) ER Physician: (units ( unknown) date) Vineet,Hyma P.A-C unknown) (unknown) (no (unknown) (unknown) Ears, Nose, Mouth, (units (unknown) date) and Throat: Denies unknown) change in voice, Denies dizziness, Denies (unknown) (no (unknown) (unknown) Ears:?hearing (units ( unknown) date) grossly normal unknown) bilaterally (unknown) (no (unknown) (unknown) Effort + (units (unkno wn) date) Inspection:?normal unknown) respiratory effort (unknown) (no (unknown) (unknown) Elevated TSH (units (u nknown) date) unknown) (unknown) (no (unknown) (unknown) Emergency Report (units (unknown) date) unknown) (unknown) (no (unknown) (unknown) Endocrine (units (unkn own) date) unknown) (unknown) (no (unknown) (unknown) Endocrine: Reports (units (unknown) date) fatigue, Denies unknown) flushing and Denies palpitations (unknown) (no (unknown) (unknown) Eos # (Auto) (units (u nknown) date) (0-450) /uL unknown) (unknown) (no (unknown) (unknown) Eos # (Auto) 300 (units (unknown) date) (0-450) /uL unknown) (unknown) (no (unknown) (unknown) Eos % (Auto) (2-4) (units (unknown) date) % unknown) (unknown) (no (unknown) (unknown) Eos % (Auto) 2.7 (units (unknown) date) (2-4) % unknown) (unknown) (no (unknown) (unknown) Esterase (units (unkno wn) date) unknown) (unknown) (no (unknown) (unknown) Estimated GFR > 60 (units (unknown) date) (>60) mL/min unknown) (unknown) (no (unknown) (unknown) Estimated GFR (units ( unknown) date) (>60) mL/min unknown) (unknown) (no (unknown) (unknown) Exam Narrative: (units (unknown) date) unknown) (unknown) (no (unknown) (unknown) Exam (units (unkno wn) date) unknown) (unknown) (no (unknown) (unknown) Eyes (units (unkno wn) date) unknown) (unknown) (no (unknown) (unknown) Eyes: Denies (units (u nknown) date) change in vision, unknown) Denies eye discharge, Denies irritation and (unknown) (no (unknown) (unknown) Face and (units (unkno wn) date) sinus:?normal unknown) facial exam and sinuses nontender (unknown) (no (unknown) (unknown) Family History (units (unknown) date) (Reviewed 12/06/22 unknown) @ 13:43 by Farshad Manley PA-C) (unknown) (no (unknown) (unknown) Father Lung cancer (units (unknown) date) unknown) (unknown) (no (unknown) (unknown) Flonase 50 mcg (units (unknown) date) unknown) (unknown) (no (unknown) (unknown) Flonase PRN Dry (units (unknown) date) Nasal Passages unknown) 07/24/22 (unknown) (no (unknown) (unknown) Furosemide 80 mg/ (units (unknown) date) Sodium (Chloride) unknown) 58 mls @ 116 mls/hr IV NOW ONE (unknown) (no (unknown) (unknown) GI (units (unkno wn) date) unknown) (unknown) (no (unknown) (unknown) Gastrointestinal (units (unknown) date) unknown) (unknown) (no (unknown) (unknown) Gastrointestinal: (units (unknown) date) Reports abdominal unknown) pain, Denies change in bowel habits, Reports (unknown) (no (unknown) (unknown) General (units (unkno wn) date) unknown) (unknown) (no (unknown) (unknown) General:?appearanc (units (unknown) date) e normal, both eyes unknown) and all related structures (unknown) (no (unknown) (unknown) General:?cooperati (units (unknown) date) ve, healthy unknown) appearing and comfortable (unknown) (no (unknown) (unknown) General:?patient (units (unknown) date) alert, patient unknown) awake and patient oriented x3 (unknown) (no (unknown) (unknown) Genitourinary (units ( unknown) date) unknown) (unknown) (no (unknown) (unknown) Genitourinary: (units (unknown) date) Denies hematuria, unknown) Denies flank pain, Denies urinary incontinence (unknown) (no (unknown) (unknown) Globulin (1.7-4.1) (units (unknown) date) g/dL unknown) (unknown) (no (unknown) (unknown) Globulin 3.2 (units (u nknown) date) (1.7-4.1) g/dL unknown) (unknown) (no (unknown) (unknown) Glucose (80-110) (units (unknown) date) mg/dL unknown) (unknown) (no (unknown) (unknown) Glucose 114 H (units ( unknown) date) (80-110) mg/dL unknown) (unknown) (no (unknown) (unknown) H/O hysterectomy (units (unknown) date) with oophorectomy unknown) (unknown) (no (unknown) (unknown) 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 (unknown) (no (unknown) (unknown) HENMT (units (unkno wn) date) unknown) (unknown) (no (unknown) (unknown) HPI - Abdominal (units (unknown) date) Pain unknown) (unknown) (no (unknown) (unknown) HPI narrative: (units (unknown) date) unknown) (unknown) (no (unknown) (unknown) HTN (hypertension) (units (unknown) date) unknown) (unknown) (no (unknown) (unknown) Hct (36-46) % (units ( unknown) date) unknown) (unknown) (no (unknown) (unknown) Hct 44.9 (36-46) % (units (unknown) date) unknown) (unknown) (no (unknown) (unknown) Head:?normal to (units (unknown) date) inspection unknown) (unknown) (no (unknown) (unknown) Hematologic/Lympha (units (unknown) date) tic unknown) (unknown) (no (unknown) (unknown) Hematologic/Lympha (units (unknown) date) tic: Denies easy unknown) bruising (unknown) (no (unknown) (unknown) Hgb (12.0-16.0) (units (unknown) date) g/dL unknown) (unknown) (no (unknown) (unknown) Hgb 14.4 (units (unkno wn) date) (12.0-16.0) g/dL unknown) (unknown) (no (unknown) (unknown) History of Present (units (unknown) date) Illness unknown) (unknown) (no (unknown) (unknown) Home Medications (units (unknown) date) unknown) (unknown) (no (unknown) (unknown) Hx of heart artery (units (unknown) date) stent unknown) (unknown) (no (unknown) (unknown) Hyperlipidemia (units (unknown) date) unknown) (unknown) (no (unknown) (unknown) INHALATION PRN (units (unknown) date) (Reason: Shortness unknown) Of Breath Or Wheezing) (unknown) (no (unknown) (unknown) INR (0.9-1.3) (units ( unknown) date) unknown) (unknown) (no (unknown) (unknown) INR 1.1 (0.9-1.3) (units (unknown) date) unknown) (unknown) (no (unknown) (unknown) Ictotest Urine (units (unknown) date) Stat unknown) (unknown) (no (unknown) (unknown) Initial Vital (units ( unknown) date) Signs unknown) (unknown) (no (unknown) (unknown) Initial Vital (units ( unknown) date) Signs: unknown) (unknown) (no (unknown) (unknown) Instructions: DI (units (unknown) date) for Abdominal unknown) Pain-Adult (unknown) (no (unknown) (unknown) Integumentary/Ruthy (units (unknown) date) sts unknown) (unknown) (no (unknown) (unknown) [facility] (units (unknown) date) [address] unknown) [place] [address] (unknown) (no (unknown) (unknown) Lab Data (units (unkno wn) date) unknown) (unknown) (no (unknown) (unknown) Lab Results (units (un known) date) unknown) (unknown) (no (unknown) (unknown) Label Comments: (units (unknown) date) unknown) (unknown) (no (unknown) (unknown) Labs: (units (unkno wn) date) unknown) (unknown) (no (unknown) (unknown) Last Admin: (units (un known) date) 12/06/22 12:40 unknown) Dose: 4 mg (unknown) (no (unknown) (unknown) Last Admin: (units (un known) date) 12/06/22 14:39 unknown) Dose: Not Given (unknown) (no (unknown) (unknown) Last Infusion: (units (unknown) date) 12/06/22 16:25 unknown) Dose: 0 mls/hr (unknown) (no (unknown) (unknown) Lipase (23-300) (units (unknown) date) U/L unknown) (unknown) (no (unknown) (unknown) Lipase 79 (23-300) (units (unknown) date) U/L unknown) (unknown) (no (unknown) (unknown) Lipase Stat (units (un known) date) unknown) (unknown) (no (unknown) (unknown) Lymph # (Auto) (units (unknown) date) (4971-7271) /uL unknown) (unknown) (no (unknown) (unknown) Lymph # (Auto) 600 (units (unknown) date) L (3072-1192) /uL unknown) (unknown) (no (unknown) (unknown) Lymph % (Auto) (units (unknown) date) (25-40) % unknown) (unknown) (no (unknown) (unknown) Lymph % (Auto) 5.7 (units (unknown) date) L (25-40) % unknown) (unknown) (no (unknown) (unknown) MCH (26-34) PG (units (unknown) date) unknown) (unknown) (no (unknown) (unknown) MCH 27.1 (26-34) (units (unknown) date) PG unknown) (unknown) (no (unknown) (unknown) MCHC (30-36) % (units (unknown) date) unknown) (unknown) (no (unknown) (unknown) MCHC 32.2 (30-36) (units (unknown) date) % unknown) (unknown) (no (unknown) (unknown) MCV (80-100) fL (units (unknown) date) unknown) (unknown) (no (unknown) (unknown) MCV 84.3 (80-100) (units (unknown) date) fL unknown) (unknown) (no (unknown) (unknown) MDM - Abdominal (units (unknown) date) Pain unknown) (unknown) (no (unknown) (unknown) MDM Narrative (units ( unknown) date) unknown) (unknown) (no (unknown) (unknown) Magnesium (units (unkn own) date) (1.6-2.3) mg/dL unknown) (unknown) (no (unknown) (unknown) Magnesium 1.8 (units ( unknown) date) (1.6-2.3) mg/dL unknown) (unknown) (no (unknown) (unknown) Magnesium Stat (units (unknown) date) unknown) (unknown) (no (unknown) (unknown) Medical History (units (unknown) date) (Updated 12/06/22 @ unknown) 16:35 by Farshad Manley PA-C) (unknown) (no (unknown) (unknown) Medical decision (units (unknown) date) making narrative: unknown) (unknown) (no (unknown) (unknown) Medication (units (unk nown) date) Instructions unknown) Recorded Confirmed (unknown) (no (unknown) (unknown) Mode of arrival: (units (unknown) date) Ambulatory unknown) (unknown) (no (unknown) (unknown) Trigg # (Auto) (units ( unknown) date) (0-900) /uL unknown) (unknown) (no (unknown) (unknown) Trigg # (Auto) 500 (units (unknown) date) (0-900) /uL unknown) (unknown) (no (unknown) (unknown) Trigg % (Auto) (units ( unknown) date) (3-14) % unknown) (unknown) (no (unknown) (unknown) Trigg % (Auto) 4.5 (units (unknown) date) (3-14) % unknown) (unknown) (no (unknown) (unknown) Mother COPD (units (un known) date) (chronic unknown) obstructive pulmonary disease) (unknown) (no (unknown) (unknown) Mouth:?oral (units (un known) date) mucosae normal unknown) (unknown) (no (unknown) (unknown) Musculoskeletal (units (unknown) date) unknown) (unknown) (no (unknown) (unknown) Musculoskeletal: (units (unknown) date) Denies back pain, unknown) Denies muscle weakness, Denies neck pain, (unknown) (no (unknown) (unknown) NT-Pro-B Natriuret (units (unknown) date) Pep (<450) pg/mL unknown) (unknown) (no (unknown) (unknown) NT-Pro-B Natriuret (units (unknown) date) Pep 5440 H (<450) unknown) pg/mL (unknown) (no (unknown) (unknown) Narrative (units (unkn own) date) unknown) (unknown) (no (unknown) (unknown) Neck (units (unkno wn) date) unknown) (unknown) (no (unknown) (unknown) Neck:?normal (units (u nknown) date) visual inspection unknown) and no lymphadenopathy noted (unknown) (no (unknown) (unknown) Neuro (units (unkno wn) date) unknown) (unknown) (no (unknown) (unknown) Neurologic (units (unk nown) date) unknown) (unknown) (no (unknown) (unknown) Neurologic: Denies (units (unknown) date) behavioral changes, unknown) Denies confusion, Denies dizziness, (unknown) (no (unknown) (unknown) Neut # (Auto) (units ( unknown) date) (1919-1148) /uL unknown) (unknown) (no (unknown) (unknown) Neut # (Auto) 9700 (units (unknown) date) H (4165-0053) /uL unknown) (unknown) (no (unknown) (unknown) Neut % (Auto) (units ( unknown) date) (50-75) % unknown) (unknown) (no (unknown) (unknown) Neut % (Auto) 86.7 (units (unknown) date) H (50-75) % unknown) (unknown) (no (unknown) (unknown) No Action (units (unkn own) date) unknown) (unknown) (no (unknown) (unknown) Nose:?external (units (unknown) date) nose normal unknown) (unknown) (no (unknown) (unknown) Ondansetron HCl (units (unknown) date) (Ondansetron 4 Mg/2 unknown) Ml Inj) 4 mg IV NOW ONE (unknown) (no (unknown) (unknown) Ordered: (units (unkno wn) date) unknown) (unknown) (no (unknown) (unknown) Orders (units (unkno wn) date) unknown) (unknown) (no (unknown) (unknown) Oxygen Delivery (units (unknown) date) Method 12/06/22 unknown) 12:01 (unknown) (no (unknown) (unknown) Oxygen Delivery (units (unknown) date) Method Nasal unknown) Cannula Nasal Cannula (unknown) (no (unknown) (unknown) Oxygen Delivery (units (unknown) date) Method Nasal unknown) Cannula (unknown) (no (unknown) (unknown) Oxygen Delivery (units (unknown) date) Method Room Air unknown) Nasal Cannula (unknown) (no (unknown) (unknown) Oxygen Delivery (units (unknown) date) Method Room Air unknown) (unknown) (no (unknown) (unknown) Oxygen Delivery (units (unknown) date) Method unknown) (unknown) (no (unknown) (unknown) Oxygen Flow Rate 2 (units (unknown) date) 2 unknown) (unknown) (no (unknown) (unknown) Oxygen Flow Rate 2 (units (unknown) date) unknown) (unknown) (no (unknown) (unknown) Oxygen Flow Rate (units (unknown) date) unknown) (unknown) (no (unknown) (unknown) PRN (Reason: Dry (units (unknown) date) Nasal Passages) unknown) (unknown) (no (unknown) (unknown) PT (10.1-12.7) (units (unknown) date) SECONDS unknown) (unknown) (no (unknown) (unknown) PT 12.1 (units (unkno wn) date) (10.1-12.7) SECONDS unknown) (unknown) (no (unknown) (unknown) Pain (units (unkno wn) date) unknown) (unknown) (no (unknown) (unknown) Partial (units (unkno wn) date) Thromboplastin Time unknown) Stat (unknown) (no (unknown) (unknown) Patient (units (unkno wn) date) Disposition: Home unknown) (unknown) (no (unknown) (unknown) Patient History (units (unknown) date) unknown) (unknown) (no (unknown) (unknown) Patient: (units (unkno wn) date) Roselyn Mejia unknown) MR#: [id number] (unknown) (no (unknown) (unknown) Plt Count (units (unkn own) date) (150-400) X103/uL unknown) (unknown) (no (unknown) (unknown) Plt Count 216 (units ( unknown) date) (150-400) X103/uL unknown) (unknown) (no (unknown) (unknown) Point of Care (units ( unknown) date) Testing unknown) (unknown) (no (unknown) (unknown) Point of care (units ( unknown) date) testing: unknown) (unknown) (no (unknown) (unknown) Potassium (units (unkn own) date) (3.4-5.1) mmol/L unknown) (unknown) (no (unknown) (unknown) Potassium 4.6 (units ( unknown) date) (3.4-5.1) mmol/L unknown) (unknown) (no (unknown) (unknown) Prescriptions: (units (unknown) date) unknown) (unknown) (no (unknown) (unknown) Prothrombin Time (units (unknown) date) INR Stat unknown) (unknown) (no (unknown) (unknown) Psychiatric (units (un known) date) unknown) (unknown) (no (unknown) (unknown) Psychiatric: Denies (units (unknown) date) anxiety, Denies unknown) behavioral changes, Denies confusion, Denies (unknown) (no (unknown) (unknown) Pulse Oximetry 100 (units (unknown) date) unknown) (unknown) (no (unknown) (unknown) Pulse Oximetry 96 (units (unknown) date) 99 unknown) (unknown) (no (unknown) (unknown) Pulse Oximetry 97 (units (unknown) date) 12/06/22 12:01 unknown) (unknown) (no (unknown) (unknown) Pulse Oximetry 97 (units (unknown) date) 99 unknown) (unknown) (no (unknown) (unknown) Pulse Oximetry 98 (units (unknown) date) unknown) (unknown) (no (unknown) (unknown) Pulse Oximetry 99 (units (unknown) date) 100 unknown) (unknown) (no (unknown) (unknown) Pulse Oximetry 99 (units (unknown) date) 98 unknown) (unknown) (no (unknown) (unknown) Pulse Oximetry 99 (units (unknown) date) unknown) (unknown) (no (unknown) (unknown) Pulse Rate 104 H (units (unknown) date) 82 unknown) (unknown) (no (unknown) (unknown) Pulse Rate 81 86 (units (unknown) date) unknown) (unknown) (no (unknown) (unknown) Pulse Rate 84 (units ( unknown) date) 12/06/22 12:01 unknown) (unknown) (no (unknown) (unknown) Pulse Rate 84 99 H (units (unknown) date) unknown) (unknown) (no (unknown) (unknown) Pulse Rate 86 89 (units (unknown) date) unknown) (unknown) (no (unknown) (unknown) Pulse Rate 87 90 (units (unknown) date) unknown) (unknown) (no (unknown) (unknown) Pulse Rate 87 (units ( unknown) date) unknown) (unknown) (no (unknown) (unknown) Pulse Rate 88 95 H (units (unknown) date) unknown) (unknown) (no (unknown) (unknown) Pulse Rate 88 (units ( unknown) date) unknown) (unknown) (no (unknown) (unknown) Pulse Rate 91 H (units (unknown) date) unknown) (unknown) (no (unknown) (unknown) Pulse Rate 93 H (units (unknown) date) unknown) (unknown) (no (unknown) (unknown) Pulse Rate 95 H 90 (units (unknown) date) unknown) (unknown) (no (unknown) (unknown) RBC (4.0-5.2) (units ( unknown) date) X106/uL unknown) (unknown) (no (unknown) (unknown) RBC 5.32 H (units (unk nown) date) (4.0-5.2) X106/uL unknown) (unknown) (no (unknown) (unknown) RDW (11.6-14.8) % (units (unknown) date) unknown) (unknown) (no (unknown) (unknown) RDW 16.6 H (units (unk nown) date) (11.6-14.8) % unknown) (unknown) (no (unknown) (unknown) ROS Unobtainable: (units (unknown) date) All systems unknown) reviewed + are unremarkable except as noted in HPI (unknown) (no (unknown) (unknown) Rate:?regular rate (units (unknown) date) unknown) (unknown) (no (unknown) (unknown) Referrals: (units (unk nown) date) unknown) (unknown) (no (unknown) (unknown) Related Data (units (u nknown) date) unknown) (unknown) (no (unknown) (unknown) Resp (units (unkno wn) date) unknown) (unknown) (no (unknown) (unknown) Respiratory Rate (units (unknown) date) 16 12/06/22 12:01 unknown) (unknown) (no (unknown) (unknown) Respiratory Rate (units (unknown) date) 16 18 unknown) (unknown) (no (unknown) (unknown) Respiratory Rate (units (unknown) date) 20 20 unknown) (unknown) (no (unknown) (unknown) Respiratory Rate (units (unknown) date) 20 unknown) (unknown) (no (unknown) (unknown) Respiratory Rate (units (unknown) date) 21 23 unknown) (unknown) (no (unknown) (unknown) Respiratory Rate (units (unknown) date) 22 23 unknown) (unknown) (no (unknown) (unknown) Respiratory Rate (units (unknown) date) 22 25 H unknown) (unknown) (no (unknown) (unknown) Respiratory Rate (units (unknown) date) 22 unknown) (unknown) (no (unknown) (unknown) Respiratory Rate (units (unknown) date) 23 24 unknown) (unknown) (no (unknown) (unknown) Respiratory Rate (units (unknown) date) 23 unknown) (unknown) (no (unknown) (unknown) Respiratory Rate (units (unknown) date) 24 unknown) (unknown) (no (unknown) (unknown) Respiratory (units (un known) date) unknown) (unknown) (no (unknown) (unknown) Respiratory: Denies (units (unknown) date) cough, Denies unknown) dyspnea, Denies dyspnea on exertion and Denies (unknown) (no (unknown) (unknown) Review of Systems (units (unknown) date) unknown) (unknown) (no (unknown) (unknown) Reviewed medical (units (unknown) date) records: Yes unknown) (unknown) (no (unknown) (unknown) Rhythm:?regular (units (unknown) date) rhythm unknown) (unknown) (no (unknown) (unknown) Robitussin DM To (units (unknown) date) Go 10 ml PO PRN unknown) Cough 07/24/22 (unknown) (no (unknown) (unknown) Robitussin DM To (units (unknown) date) Go unknown) (unknown) (no (unknown) (unknown) Rx Instructions: (units (unknown) date) unknown) (unknown) (no (unknown) (unknown) SARS-CoV-2 (PCR) (units (unknown) date) (Negative) unknown) (unknown) (no (unknown) (unknown) SARS-CoV-2 (PCR) (units (unknown) date) Negative (Negative) unknown) (unknown) (no (unknown) (unknown) Signed By: (units (unk nown) date) unknown) (unknown) (no (unknown) (unknown) Skin (units (unkno wn) date) unknown) (unknown) (no (unknown) (unknown) Skin/Breast: (units (u nknown) date) Denies pruritus, unknown) Denies erythema, Denies rash and Denies wounds (unknown) (no (unknown) (unknown) Smoking Status: (units (unknown) date) Former smoker unknown) (unknown) (no (unknown) (unknown) Social History (units (unknown) date) (Reviewed 12/06/22 unknown) @ 13:43 by Farshad Manley PA-C) (unknown) (no (unknown) (unknown) Sodium (137-145) (units (unknown) date) mmol/L unknown) (unknown) (no (unknown) (unknown) Sodium 139 (units (unk nown) date) (137-145) mmol/L unknown) (unknown) (no (unknown) (unknown) Source: patient (units (unknown) date) unknown) (unknown) (no (unknown) (unknown) Stand Alone Forms: (units (unknown) date) Patient Portal/API unknown) (unknown) (no (unknown) (unknown) Stated Complaint: (units (unknown) date) doesn't feel good unknown) stomach to chest (unknown) (no (unknown) (unknown) Status post (units (un known) date) cholecystectomy unknown) (unknown) (no (unknown) (unknown) Stool Occult Blood (units (unknown) date) Negative unknown) (unknown) (no (unknown) (unknown) Stop: 12/06/22 (units (unknown) date) 12:07 unknown) (unknown) (no (unknown) (unknown) Stop: 12/06/22 (units (unknown) date) 13:16 unknown) (unknown) (no (unknown) (unknown) Stop: 12/06/22 (units (unknown) date) 15:08 unknown) (unknown) (no (unknown) (unknown) Substance Use (units ( unknown) date) Type: does not use unknown) (unknown) (no (unknown) (unknown) Sulfa (Sulfonamide (units (unknown) date) Allergy unknown) Intermediate rash Verified 07/26/22 18:34 (unknown) (no (unknown) (unknown) Surgical History (units (unknown) date) (Reviewed 12/06/22 unknown) @ 13:43 by Farshad Manley PA-C) (unknown) (no (unknown) (unknown) TAKE 1 CAPSULE BY (units (unknown) date) MOUTH ONCE DAILY unknown) (unknown) (no (unknown) (unknown) TAKE 1 TABLET BY (units (unknown) date) MOUTH ONCE DAILY IN unknown) THE MORNING (unknown) (no (unknown) (unknown) TAKE 1 TABLET BY (units (unknown) date) MOUTH ONCE DAILY unknown) (unknown) (no (unknown) (unknown) Temperature 98 F (units (unknown) date) 12/06/22 12:01 unknown) (unknown) (no (unknown) (unknown) Temperature 98 F (units (unknown) date) unknown) (unknown) (no (unknown) (unknown) Temperature (units (un known) date) unknown) (unknown) (no (unknown) (unknown) Throat:?posterior (units (unknown) date) oropharynx normal unknown) (unknown) (no (unknown) (unknown) Time Seen by (units (u nknown) date) Provider: 12/06/22 unknown) 12:15 (unknown) (no (unknown) (unknown) Total Bilirubin (units (unknown) date) (0.2-1.3) mg/dL unknown) (unknown) (no (unknown) (unknown) Total Bilirubin (units (unknown) date) 1.1 (0.2-1.3) mg/dL unknown) (unknown) (no (unknown) (unknown) Total Creatine (units (unknown) date) Kinase (30-135) U/L unknown) (unknown) (no (unknown) (unknown) Total Creatine (units (unknown) date) Kinase 49 (30-135) unknown) U/L (unknown) (no (unknown) (unknown) Total Creatine (units (unknown) date) Kinase 50 (30-135) unknown) U/L (unknown) (no (unknown) (unknown) Total Protein (units ( unknown) date) (6.3-8.2) g/dL unknown) (unknown) (no (unknown) (unknown) Total Protein 7.6 (units (unknown) date) (6.3-8.2) g/dL unknown) (unknown) (no (unknown) (unknown) Troponin + CK (units ( unknown) date) Cardiac Panel Stat unknown) (unknown) (no (unknown) (unknown) Troponin I (units (unk nown) date) (0.01-0.034) ng/mL unknown) (unknown) (no (unknown) (unknown) Troponin I 0.017 (units (unknown) date) (0.01-0.034) ng/mL unknown) (unknown) (no (unknown) (unknown) Troponin I 0.021 (units (unknown) date) (0.01-0.034) ng/mL unknown) (unknown) (no (unknown) (unknown) Type and Screen (units (unknown) date) Stat unknown) (unknown) (no (unknown) (unknown) Unstable angina (units (unknown) date) unknown) (unknown) (no (unknown) (unknown) Ur Bilirubin (units (u nknown) date) Confirm (Negative) unknown) (unknown) (no (unknown) (unknown) Ur Bilirubin (units (u nknown) date) Confirm Negative unknown) (Negative) (unknown) (no (unknown) (unknown) Urine Dip (units (unkn own) date) unknown) (unknown) (no (unknown) (unknown) Urine Specific (units (unknown) date) Supply 1.025 unknown) (unknown) (no (unknown) (unknown) Valvular heart (units (unknown) date) disease unknown) (unknown) (no (unknown) (unknown) Vital Signs - 8 hr (units (unknown) date) unknown) (unknown) (no (unknown) (unknown) Vital Signs (units (un known) date) unknown) (unknown) (no (unknown) (unknown) Vital signs: (units (u nknown) date) unknown) (unknown) (no (unknown) (unknown) WBC (4.5-11.0) (units (unknown) date) X103/uL unknown) (unknown) (no (unknown) (unknown) WBC 11.2 H (units (unk nown) date) (4.5-11.0) X103/uL unknown) (unknown) (no (unknown) (unknown) Katy Salazar, (units (unknown) date) 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 [Primary Care unknown) Provider] (unknown) (no (unknown) (unknown) XR chest 1V Stat (units (unknown) date) unknown) (unknown) (no (unknown) (unknown) You were evaluated (units (unknown) date) in the ED today for unknown) abdominal pain, nausea, vomiting, (unknown) (no (unknown) (unknown) [Embedded Image (units (unknown) date) Not Available] unknown) (unknown) (no (unknown) (unknown) [From Bactrim] (units (unknown) date) unknown) (unknown) (no (unknown) (unknown) [From Trilipix] (units (unknown) date) Upset unknown) (unknown) (no (unknown) (unknown) acarbose Allergy (units (unknown) date) Intermediate unknown) Abdominal Verified 07/26/22 18:34 (unknown) (no (unknown) (unknown) albuterol 90 (units (u nknown) date) mcg/actuation unknown) Aerosol (unknown) (no (unknown) (unknown) albuterol 90 (units (u nknown) date) mcg/actuation unknown) aerosol 90 mcg inhalation PRN Shortness Of 07/24/22 (unknown) (no (unknown) (unknown) alcohol intake (units (unknown) date) frequency: 0-2 unknown) drinks per day (unknown) (no (unknown) (unknown) alcohol intake: (units (unknown) date) never unknown) (unknown) (no (unknown) (unknown) amlodipine Allergy (units (unknown) date) Intermediate unknown) Verified 07/26/22 18:34 (unknown) (no (unknown) (unknown) and Denies (units (unk nown) date) orthopnea unknown) (unknown) (no (unknown) (unknown) and Denies urinary (units (unknown) date) urgency unknown) (unknown) (no (unknown) (unknown) and Denies (units (unk nown) date) weakness unknown) (unknown) (no (unknown) (unknown) and below (units (unkn own) date) unknown) (unknown) (no (unknown) (unknown) 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 Return to the ED if (unknown) (no (unknown) (unknown) carvedilol Allergy (units (unknown) date) Mild Rash Verified unknown) 07/26/22 18:34 (unknown) (no (unknown) (unknown) changes. CT (units (un known) date) abdomen pelvis unknown) shows no bowel obstruction. 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 (units ( unknown) date) Patient has a unknown) history of AAA, 2 saccular aneurysms above the (unknown) (no (unknown) (unknown) could likely be (units (unknown) date) due to unknown) gastroenteritis, given the vomiting and 2 episodes of (unknown) (no (unknown) (unknown) cyclobenzaprine 10 (units (unknown) date) mg Tablet unknown) (unknown) (no (unknown) (unknown) cyclobenzaprine 10 (units (unknown) date) mg tablet 10 mg PO unknown) TID PRN Muscle Spasm 07/24/22 07/24/22 (unknown) (no (unknown) (unknown) daily of Lasix at (units (unknown) date) home for the next unknown) few days, following up with Cardiology as (unknown) (no (unknown) (unknown) depression, Denies (units (unknown) date) homicidal ideation unknown) and Denies suicidal ideation (unknown) (no (unknown) (unknown) diarrhea in the (units (unknown) date) ED. unlikely that unknown) the vomiting was related to the elevated BNP, (unknown) (no (unknown) (unknown) diarrhea, Denies (units (unknown) date) nausea and Reports unknown) vomiting (unknown) (no (unknown) (unknown) diarrhea. Concern (units (unknown) date) for ACS versus CHF unknown) exacerbation versus ruptured AAA vs (unknown) (no (unknown) (unknown) diarrhea. Your (units (unknown) date) labs, chest x-ray, unknown) EKG, CT abdomen pelvis did not show any acute (unknown) (no (unknown) (unknown) diltiazem HCl 120 (units (unknown) date) mg 120 mg PO QAM unknown) 07/08/22 07/24/22 (unknown) (no (unknown) (unknown) diltiazem HCl (units ( unknown) date) [Cartia XT] 120 mg unknown) capsule,extended release 24hr (unknown) (no (unknown) (unknown) does not appear to (units (unknown) date) be fluid overloaded unknown) or short of breath. ED return (unknown) (no (unknown) (unknown) doxazosin [From (units (unknown) date) Cardura] Allergy unknown) Intermediate Rash Verified 07/26/22 18:34 (unknown) (no (unknown) (unknown) doxycycline (units (un known) date) Allergy unknown) Intermediate Rash Verified 07/26/22 18:34 (unknown) (no (unknown) (unknown) evaluation. Your (units (unknown) date) NT proBNP, which is unknown) a marker heart failure was elevated today, (unknown) (no (unknown) (unknown) falls, Denies (units ( unknown) date) lethargy and Denies unknown) weakness (unknown) (no (unknown) (unknown) findings that (units ( unknown) date) would explain your unknown) symptoms today. Your CT abdomen pelvis did (unknown) (no (unknown) (unknown) formoterol [From (units (unknown) date) Symbicort] Allergy unknown) Mild Anxiety Verified 07/26/22 18:34 (unknown) (no (unknown) (unknown) furosemide 40 mg (units (unknown) date) tablet 40 mg PO QAM unknown) 07/08/22 07/08/22 (unknown) (no (unknown) (unknown) furosemide 40 mg (units (unknown) date) tablet unknown) (unknown) (no (unknown) (unknown) gastroenteritis (units (unknown) date) versus dehydration unknown) versus other intra-abdominal pathology. Will (unknown) (no (unknown) (unknown) gemfibrozil (units (un known) date) Allergy unknown) Intermediate Rash Verified 07/26/22 18:34 (unknown) (no (unknown) (unknown) given patient was (units (unknown) date) very comfortable unknown) once she had the big bout emesis. Patient (unknown) (no (unknown) (unknown) history of (units (unk nown) date) constipation. unknown) Patient states that she more often has diarrhea than (unknown) (no (unknown) (unknown) household members: (units (unknown) date) family and children unknown) (unknown) (no (unknown) (unknown) inhaler Breath (units (unknown) date) unknown) (unknown) (no (unknown) (unknown) ipratropium 0.5 (units (unknown) date) mg-albuterol 3 mg unknown) ml inhalation PRN Shortness Of 07/24/22 (unknown) (no (unknown) (unknown) ipratropium-albute (units (unknown) date) rol 0.5 mg-3 mg(2.5 unknown) mg base)/3 mL solution for nebulization (unknown) (no (unknown) (unknown) isosorbide (units (unk nown) date) mononitrate 120 mg unknown) 120 mg PO QAM 07/08/22 07/24/22 (unknown) (no (unknown) (unknown) isosorbide (units (unk nown) date) mononitrate 120 mg unknown) tablet extended release 24 hr (unknown) (no (unknown) (unknown) last study on (units ( unknown) date) 02/24/2022. unknown) Discussed findings with patient and recommend (unknown) (no (unknown) (unknown) level of the renal (units (unknown) date) arteries. unknown) (unknown) (no (unknown) (unknown) levofloxacin (units (u nknown) date) Allergy unknown) Intermediate Rash Verified 07/26/22 18:34 (unknown) (no (unknown) (unknown) levothyroxine 88 (units (unknown) date) mcg tablet 88 mcg unknown) PO QAM 07/08/22 07/24/22 (unknown) (no (unknown) (unknown) levothyroxine 88 (units (unknown) date) mcg tablet unknown) (unknown) (no (unknown) (unknown) lightheadedness, (units (unknown) date) Denies unknown) palpitations, Denies dyspnea, Denies dyspnea on exertion (unknown) (no (unknown) (unknown) lisinopril 40 mg (units (unknown) date) tablet 20 mg PO QAM unknown) 07/08/22 07/24/22 (unknown) (no (unknown) (unknown) lisinopril 40 mg (units (unknown) date) tablet unknown) (unknown) (no (unknown) (unknown) losartan Allergy (units (unknown) date) Intermediate Rash unknown) Verified 07/26/22 18:34 (unknown) (no (unknown) (unknown) metoprolol AdvReac (units (unknown) date) Intermediate unknown) Verified 07/26/22 18:34 (unknown) (no (unknown) (unknown) metoprolol (units (unk nown) date) succinate 25 mg 25 unknown) mg PO DAILY 07/24/22 07/24/22 (unknown) (no (unknown) (unknown) metoprolol (units (unk nown) date) succinate 25 mg unknown) tablet extended release 24 hr (unknown) (no (unknown) (unknown) montelukast [From (units (unknown) date) Singulair] Allergy unknown) Intermediate Difficulty Verified 07/26/22 (unknown) (no (unknown) (unknown) morning (units (unkno wn) date) unknown) (unknown) (no (unknown) (unknown) multivitamin 1 tab (units (unknown) date) PO DAILY 09/10/18 unknown) 07/24/22 (unknown) (no (unknown) (unknown) multivitamin (units (u nknown) date) Tablet,Chewable unknown) (unknown) (no (unknown) (unknown) neck pain, Denies (units (unknown) date) sore throat and unknown) Denies throat swelling (unknown) (no (unknown) (unknown) nifedipine Allergy (units (unknown) date) Intermediate Chills unknown) Verified 07/26/22 18:34 (unknown) (no (unknown) (unknown) nitroglycerin 0.4 (units (unknown) date) mg sublingual 0.4 unknown) mg sublingual Q5-15M PRN Chest 09/10/18 (unknown) (no (unknown) (unknown) nitroglycerin (units ( unknown) date) [Nitrostat] 0.4 mg unknown) Tablet, Sublingual (unknown) (no (unknown) (unknown) obtain labs, (units (u nknown) date) lipase, troponin, unknown) BNP, chest x-ray, EKG, CT abdomen pelvis. (unknown) (no (unknown) (unknown) of Lasix IV which (units (unknown) date) is twice her daily unknown) home dose. Discussed taking an extra dose (unknown) (no (unknown) (unknown) of breath, (units (unk nown) date) dysuria, unknown) lightheadedness, dizziness, syncope. Patient states that (unknown) (no (unknown) (unknown) omega (units (unkno wn) date) 1-blv-ldt-fish oil unknown) 1,000 mg 1,000 mg PO DAILY 09/10/18 07/24/22 (unknown) (no (unknown) (unknown) omega (units (unkno wn) date) 0-rsw-dhp-fish oil unknown) [Fish Oil] 1,000 mg (120 mg-180 mg) Capsule (unknown) (no (unknown) (unknown) patient states she (units (unknown) date) forgets to take unknown) (unknown) (no (unknown) (unknown) precautions were (units (unknown) date) also discussed with unknown) patient and she verbalized understanding. (unknown) (no (unknown) (unknown) presents to the ED (units (unknown) date) with 1 day of unknown) abdominal pain. Patient states she is feeling (unknown) (no (unknown) (unknown) presents to the ED (units (unknown) date) with 1 day of unknown) abdominal pain. 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 unknown) d/c 07/14/22 (unknown) (no (unknown) (unknown) recommended that (units (unknown) date) you follow-up with unknown) the vascular surgeon for further (unknown) (no (unknown) (unknown) release (units (unkno wn) date) unknown) (unknown) (no (unknown) (unknown) rest in her car (units (unknown) date) for a little bit unknown) but felt worse. Patient drove herself to the (unknown) (no (unknown) (unknown) she ate some salad (units (unknown) date) any bread stick at unknown) [employer] yesterday. Patient denies a (unknown) (no (unknown) (unknown) show the 2 (units (unk nown) date) abdominal aneurysms unknown) that are slightly enlarged from last year. It is (unknown) (no (unknown) (unknown) soln (units (unkno wn) date) unknown) (unknown) (no (unknown) (unknown) soon as possible. (units (unknown) date) Labs otherwise unknown) within normal limits. Patient's symptoms (unknown) (no (unknown) (unknown) sulfamethoxazole (units (unknown) date) Allergy unknown) Intermediate Rash Verified 07/26/22 18:34 (unknown) (no (unknown) (unknown) tablet (Nitrostat) (units (unknown) date) Pain unknown) (unknown) (no (unknown) (unknown) tablet,extended (units (unknown) date) release 24 hr unknown) (unknown) (no (unknown) (unknown) tenderness. (units (un known) date) unknown) (unknown) (no (unknown) (unknown) that she had no (units (unknown) date) other symptoms unknown) including fevers, chills, chest pain, shortness (unknown) (no (unknown) (unknown) tobacco type: (units ( unknown) date) cigarettes unknown) (unknown) (no (unknown) (unknown) torsemide 20 mg (units (unknown) date) Tablet unknown) (unknown) (no (unknown) (unknown) torsemide 20 mg (units (unknown) date) tablet 20 mg PO unknown) DAILY 07/24/22 07/24/22 (unknown) (no (unknown) (unknown) trimethoprim [From (units (unknown) date) Bactrim] Allergy unknown) Intermediate Rash Verified 07/26/22 18:34 (unknown) (no (unknown) (unknown) up feeling fine, (units (unknown) date) went to [employer] unknown) study, it a little bit of fruit including (unknown) (no (unknown) (unknown) vascular surgery (units (unknown) date) consult. NT proBNP unknown) was elevated to 5440. Patient given 80 mg (unknown) (no (unknown) (unknown) vitamin E 268 mg (units (unknown) date) (400 unit) capsule unknown) 400 unit PO DAILY 09/10/18 07/24/22 (unknown) (no (unknown) (unknown) vitamin E 400 unit (units (unknown) date) Capsule unknown) (unknown) (no (unknown) (unknown) watermelon, (units (un known) date) grapes, unknown) blackberries, felt uncomfortable in her abdomen, tried to (unknown) (no (unknown) (unknown) well and (units (unkno wn) date) symptom-free after unknown) she had a massive bout of emesis and watery (unknown) (no (unknown) (unknown) wheezing (units (unkno wn) date) unknown) (unknown) (no (unknown) (unknown) you have worsening (units (unknown) date) abdominal pain, unknown) chest pain, persistent vomiting, shortness of (unknown) (no (unknown) (unknown) you were given a (units (unknown) date) extra dose of Lasix unknown) for this. Please follow-up with your Result panel [id number] (unknown) (no (unknown) (unknown) (no value) (units (unk nown) date) unknown) (unknown) (no (unknown) (unknown) [id number] (units (unkno wn) date) unknown) (unknown) (no (unknown) (unknown) 01/15/23 (units (unkno wn) date) unknown) (unknown) (no (unknown) (unknown) [address] [place] [address] (units (unknown) date) unknown) (unknown) (no (unknown) (unknown) Accession Number: (units (unknown) date) [id number] unknown) (unknown) (no (unknown) (unknown) Accession Number: (units (unknown) date) [id number] unknown) (unknown) (no (unknown) (unknown) Age/Sex: 87 / F (units (unknown) date) Date of Service: unknown) (unknown) (no (unknown) (unknown) [place] [address] (unit s (unknown) date) unknown) (unknown) (no (unknown) (unknown) Approved by: Amandeep (units (unknown) date) Joaquin Rodriguez on unknown) 01/15/2023 at 18:05 (unknown) (no (unknown) (unknown) Approved by: Amandeep (units (unknown) date) Joaquin Rodriguez on unknown) 01/15/2023 at 18:06 (unknown) (no (unknown) (unknown) Bones: No fractures (unit s (unknown) date) or dislocations. unknown) Moderate acromioclavicular joint (unknown) (no (unknown) (unknown) Bones: No fractures (unit s (unknown) date) or dislocations. No unknown) patellar subluxation. (unknown) (no (unknown) (unknown) COMPARISON: None. (units (unknown) date) unknown) (unknown) (no (unknown) (unknown) Chondrocalcinosis (units (unknown) date) unknown) (unknown) (no (unknown) (unknown) : 1935 (units (unknown) date) Acct:[id number] unknown) (unknown) (no (unknown) (unknown) Dictated by: Amandeep (units (unknown) date) Joaquin Rodriguez on unknown) 01/15/2023 at 18:04 (unknown) (no (unknown) (unknown) Dictated by: Amandeep (units (unknown) date) Joaquin Rodriguez on unknown) 01/15/2023 at 18:05 (unknown) (no (unknown) (unknown) FINDINGS: (units (unkn own) date) unknown) (unknown) (no (unknown) (unknown) IMPRESSION: (units (un known) date) 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 [id number] (unknown) (no (unknown) (unknown) INDICATIONS: Fall (units (unknown) date) unknown) (unknown) (no (unknown) (unknown) [facility] (units (unknown) date) unknown) (unknown) (no (unknown) (unknown) Loc: RAD (units (unkno wn) date) unknown) (unknown) (no (unknown) (unknown) [id number] (units (unknown) date) unknown) (unknown) (no (unknown) (unknown) No (units (unkno wn) date) unknown) (unknown) (no (unknown) (unknown) Ordering Provider: (units (unknown) date) Frankie Palumbo unknown) (unknown) (no (unknown) (unknown) PROCEDURE: XR KNEE (units (unknown) date) LT 3V unknown) (unknown) (no (unknown) (unknown) PROCEDURE: XR (units ( unknown) date) SHOULDER LT MIN 2V unknown) (unknown) (no (unknown) (unknown) Patient: (units (unkno wn) date) Roselyn Mejia MR#: unknown) M0 (unknown) (no (unknown) (unknown) Procedure: XR knee (units (unknown) date) LT 3V unknown) (unknown) (no (unknown) (unknown) Procedure: XR (units ( unknown) date) shoulder LT min 2V unknown) (unknown) (no (unknown) (unknown) Signed (units (unkno wn) date) unknown) (unknown) (no (unknown) (unknown) Soft tissues: No (units (unknown) date) suspicious soft unknown) tissue calcifications. (unknown) (no (unknown) (unknown) Soft tissues: Small (unit s (unknown) date) to moderate unknown) suprapatellar joint effusion is seen. (unknown) (no (unknown) (unknown) TECHNIQUE: 3 views (units (unknown) date) of the knee were unknown) acquired. (unknown) (no (unknown) (unknown) TECHNIQUE: 3 views (units (unknown) date) of the shoulder were unknown) acquired. (unknown) (no (unknown) (unknown) XRay Report (units (un known) date) unknown) (unknown) (no (unknown) (unknown) abnormalities. (units (unknown) date) unknown) (unknown) (no (unknown) (unknown) changes are seen. (units (unknown) date) Mild glenohumeral unknown) joint osteoarthritic changes also noted. (unknown) (no (unknown) (unknown) compartment. No (units (unknown) date) suspicious bony unknown) lesions. (unknown) (no (unknown) (unknown) glenohumeral joint (units (unknown) date) unknown) (unknown) (no (unknown) (unknown) in medial femoral (units (unknown) date) tibial compartment unknown) is also noted. (unknown) (no (unknown) (unknown) osteoarthritic (units (unknown) date) unknown) (unknown) (no (unknown) (unknown) osteoarthritis. No (units (unknown) date) shoulder fracture or unknown) dislocation. No gross soft tissue (unknown) (no (unknown) (unknown) suspicious bony (units (unknown) date) lesions. Visualized unknown) ribs appear intact. (unknown) (no (unknown) (unknown) tricompartmental (units (unknown) date) osteoarthritis and unknown) small to moderate joint effusion. (unknown) (no (unknown) (unknown) tricompartmental (units (unknown) date) osteoarthritis is unknown) seen most notably in medial femoral tibial Result panel [id number] (unknown) (no (unknown) (unknown) (no value) (units (unk nown) date) unknown) (unknown) (no (unknown) (unknown) [id number] (units (unkno wn) date) unknown) (unknown) (no (unknown) (unknown) 02/09/23 (units (unkno wn) date) unknown) (unknown) (no (unknown) (unknown) 1. No acute (units (un known) date) cardiopulmonary unknown) abnormality. (unknown) (no (unknown) (unknown) [address] (units (unknown) date) unknown) (unknown) (no (unknown) (unknown) 2. Stable (units (unkn own) date) cardiomegaly. unknown) (unknown) (no (unknown) (unknown) Accession Number: (units (unknown) date) [id number] unknown) (unknown) (no (unknown) (unknown) Age/Sex: 87 / F (units (unknown) date) Date of Service: unknown) (unknown) (no (unknown) (unknown) [place] (units ( unknown) date) [id number] unknown) (unknown) (no (unknown) (unknown) Approved by: (units (u nknown) date) omar Contreras) Joaquin on 02/09/2023 at 19:58 (unknown) (no (unknown) (unknown) Bones and chest (units (unknown) date) wall: No unknown) suspicious bony lesions. Overlying soft tissues (unknown) (no (unknown) (unknown) COMPARISON: (units (un known) date) [facility], unknown) CR, XR CHEST 1V, 12/06/2022, 13:21. (unknown) (no (unknown) (unknown) : 1935 (units (unknown) date) Acct:[id number] unknown) (unknown) (no (unknown) (unknown) Dictated by: (units (u nknown) date) omar Contreras) Joaquin on 02/09/2023 at 19:57 (unknown) (no (unknown) (unknown) FINDINGS: (units (unkn own) date) unknown) (unknown) (no (unknown) (unknown) IMPRESSION: (units (un known) date) unknown) (unknown) (no (unknown) (unknown) INDICATIONS: (units (u nknown) date) chest pain unknown) (unknown) (no (unknown) (unknown) [facility] (units (unknown) date) unknown) (unknown) (no (unknown) (unknown) Loc: ED (units (unkno wn) date) unknown) (unknown) (no (unknown) (unknown) Lungs and pleura: (units (unknown) date) Lungs are clear. unknown) No pleural effusions or pneumothorax. (unknown) (no (unknown) (unknown) Mediastinum: (units (u nknown) date) Normal mediastinal unknown) contours. The aorta is tortuous. The heart is (unknown) (no (unknown) (unknown) Ordering (units (unkno wn) date) Provider: unknown) Glo Vela D.O. (unknown) (no (unknown) (unknown) PROCEDURE: XR (units ( unknown) date) CHEST 1V unknown) (unknown) (no (unknown) (unknown) Patient: (units (unkno wn) date) Roselyn Mejia unknown) MR#: [id number] (unknown) (no (unknown) (unknown) Procedure: XR (units ( unknown) date) chest 1V unknown) (unknown) (no (unknown) (unknown) Signed (units (unkno wn) date) unknown) (unknown) (no (unknown) (unknown) Surgical changes (units (unknown) date) and devices: unknown) Status post median sternotomy. (unknown) (no (unknown) (unknown) TECHNIQUE: One (units (unknown) date) view of the chest unknown) was acquired. (unknown) (no (unknown) (unknown) XRay Report (units (un known) date) unknown) (unknown) (no (unknown) (unknown) appear (units (unkno wn) date) unknown) (unknown) (no (unknown) (unknown) enlarged, stable. (units (unknown) date) Interstitial unknown) prominence is unchanged compared to the prior (unknown) (no (unknown) (unknown) likely chronic. (units (unknown) date) unknown) (unknown) (no (unknown) (unknown) study and is (units (u nknown) date) unknown) (unknown) (no (unknown) (unknown) unremarkable. (units ( unknown) date) unknown) Result panel 1776 (unknown) (no date) (unknown) (unknown) 0.4 % (unkn own) (unknown) (no date) (unknown) (unknown) 0.9 % (unkn own) (unknown) (no date) (unknown) (unknown) 100 /ul (unkn own) (unknown) (no date) (unknown) (unknown) 100 /ul (unkn own) (unknown) (no date) (unknown) (unknown) 51030 /ul (unkn own) (unknown) (no date) (unknown) (unknown) 12.8 x10 3/ul (unkn own) (unknown) (no date) (unknown) (unknown) 1200 /ul (unkn own) (unknown) (no date) (unknown) (unknown) 13.8 g/dl (unkn own) (unknown) (no date) (unknown) (unknown) 16.3 % (unkn own) (unknown) (no date) (unknown) (unknown) 244 x10 3/ul (unkn own) (unknown) (no date) (unknown) (unknown) 28.7 pg (unkn own) (unknown) (no date) (unknown) (unknown) 33.6 % (unkn own) (unknown) (no date) (unknown) (unknown) 4.83 x10 6/ul (unkn own) (unknown) (no date) (unknown) (unknown) 41.3 % (unkn own) (unknown) (no date) (unknown) (unknown) 5.1 % (unkn own) (unknown) (no date) (unknown) (unknown) 700 /ul (unkn own) (unknown) (no date) (unknown) (unknown) 84.4 % (unkn own) (unknown) (no date) (unknown) (unknown) 85.4 fl (unkn own) (unknown) (no date) (unknown) (unknown) 9.2 % (unkn own) Result panel 1777 (unknown) (no date) (unknown) (unknown) 1.1 (units unknown) (unknown) (unknown) (no date) (unknown) (unknown) 12.8 seconds (unkn own) (unknown) (no date) (unknown) (unknown) 30 seconds (unkn own) (unknown) (no date) (unknown) (unknown) 30 seconds (unkn own) Result panel 1778 (unknown) (no date) (unknown) (unknown) 1.06 mg/dl (unkn own) (unknown) (no date) (unknown) (unknown) 1.3 (units (unkn own) unknown) (unknown) (no date) (unknown) (unknown) 1.9 mg/dl (unkn own) (unknown) (no date) (unknown) (unknown) 10.0 mg/dl (unkn own) (unknown) (no date) (unknown) (unknown) 135 mmol/l (unkn own) (unknown) (no date) (unknown) (unknown) 167 mg/dl (unkn own) (unknown) (no date) (unknown) (unknown) 167 mg/dl (unkn own) (unknown) (no date) (unknown) (unknown) 2.7 mg/dl (unkn own) (unknown) (no date) (unknown) (unknown) 22 iu/l (unkn own) (unknown) (no date) (unknown) (unknown) 24.5 (units (unkn own) unknown) (unknown) (no date) (unknown) (unknown) 26 mg/dl (unkn own) (unknown) (no date) (unknown) (unknown) 28 iu/l (unkn own) (unknown) (no date) (unknown) (unknown) 3.2 g/dl (unkn own) (unknown) (no date) (unknown) (unknown) 30 u/l (unkn own) (unknown) (no date) (unknown) (unknown) 33 mmol/l (unkn own) (unknown) (no date) (unknown) (unknown) 4.0 mmol/l (unkn own) (unknown) (no date) (unknown) (unknown) 4.1 g/dl (unkn own) (unknown) (no date) (unknown) (unknown) 45 u/l (unkn own) (unknown) (no date) (unknown) (unknown) 51 ml/min (unkn own) (unknown) (no date) (unknown) (unknown) 51 ml/min (unkn own) (unknown) (no date) (unknown) (unknown) 7.3 g/dl (unkn own) (unknown) (no date) (unknown) (unknown) 76 u/l (unkn own) (unknown) (no date) (unknown) (unknown) 95 mmol/l (unkn own) (unknown) (no date) (unknown) (unknown) Test not % (unkn own) performed (unknown) (no date) (unknown) (unknown) Test not % (unkn own) performed (unknown) (no date) (unknown) (unknown) Test not ng/ml (unkn own) performed (unknown) (no date) (unknown) (unknown) Test not ng/ml (unkn own) performed Result panel 1779 (unknown) (no date) (unknown) (unknown) 0.017 ng/ml (unkn own) (unknown) (no date) (unknown) (unknown) 0.017 ng/ml (unkn own) (unknown) (no date) (unknown) (unknown) 1.06 mg/dl (unkn own) (unknown) (no date) (unknown) (unknown) 1.3 (units (unkn own) unknown) (unknown) (no date) (unknown) (unknown) 1.9 mg/dl (unkn own) (unknown) (no date) (unknown) (unknown) 10.0 mg/dl (unkn own) (unknown) (no date) (unknown) (unknown) 135 mmol/l (unkn own) (unknown) (no date) (unknown) (unknown) 167 mg/dl (unkn own) (unknown) (no date) (unknown) (unknown) 167 mg/dl (unkn own) (unknown) (no date) (unknown) (unknown) 2.7 mg/dl (unkn own) (unknown) (no date) (unknown) (unknown) 22 iu/l (unkn own) (unknown) (no date) (unknown) (unknown) 24.5 (units (unkn own) unknown) (unknown) (no date) (unknown) (unknown) 26 mg/dl (unkn own) (unknown) (no date) (unknown) (unknown) 28 iu/l (unkn own) (unknown) (no date) (unknown) (unknown) 3.2 g/dl (unkn own) (unknown) (no date) (unknown) (unknown) 30 u/l (unkn own) (unknown) (no date) (unknown) (unknown) 33 mmol/l (unkn own) (unknown) (no date) (unknown) (unknown) 4.0 mmol/l (unkn own) (unknown) (no date) (unknown) (unknown) 4.1 g/dl (unkn own) (unknown) (no date) (unknown) (unknown) 45 u/l (unkn own) (unknown) (no date) (unknown) (unknown) 51 ml/min (unkn own) (unknown) (no date) (unknown) (unknown) 51 ml/min (unkn own) (unknown) (no date) (unknown) (unknown) 7.3 g/dl (unkn own) (unknown) (no date) (unknown) (unknown) 76 u/l (unkn own) (unknown) (no date) (unknown) (unknown) 95 mmol/l (unkn own) (unknown) (no date) (unknown) (unknown) Test not % (unkn own) performed (unknown) (no date) (unknown) (unknown) Test not % (unkn own) performed (unknown) (no date) (unknown) (unknown) Test not ng/ml (unkn own) performed (unknown) (no date) (unknown) (unknown) Test not ng/ml (unkn own) performed Result panel 1780 (unknown) (no (unknown) (unknown) (no value) (units (unk nown) date) unknown) (unknown) (no (unknown) (unknown) (120 mg-180 mg) (units (unknown) date) capsule (Fish Oil) unknown) (unknown) (no (unknown) (unknown) (2.5 mg base)/3 mL (units (unknown) date) nebulization Breath unknown) Or Wheezing (unknown) (no (unknown) (unknown) (Cartia XT) (units (un known) date) unknown) (unknown) (no (unknown) (unknown) 0.4 mg SUBLINGUAL (units (unknown) date) Q5-15M PRN (Reason: unknown) Chest Pain) (unknown) (no (unknown) (unknown) [id number] (units (unkno wn) date) unknown) (unknown) (no (unknown) (unknown) 02/09/23 02/09/23 (units (unknown) date) 02/09/23 unknown) Range/Units (unknown) (no (unknown) (unknown) 02/09/23 18:21 (units (unknown) date) unknown) (unknown) (no (unknown) (unknown) 02/09/23 18:30 (units (unknown) date) unknown) (unknown) (no (unknown) (unknown) 02/09/23 (units (unkno wn) date) unknown) (unknown) (no (unknown) (unknown) 07/24/22 (units (unkno wn) date) unknown) (unknown) (no (unknown) (unknown) 1 tab PO DAILY (units (unknown) date) unknown) (unknown) (no (unknown) (unknown) 1,000 mg PO DAILY (units (unknown) date) unknown) (unknown) (no (unknown) (unknown) 10 mg PO TID PRN (units (unknown) date) (Reason: Muscle unknown) Spasm) (unknown) (no (unknown) (unknown) 10 ml PO PRN (units (u nknown) date) (Reason: Cough) unknown) (unknown) (no (unknown) (unknown) 10-100mg/5ml (units (u nknown) date) liquid. take 10ml unknown) by mouth every 4 hrs as needed for cough (unknown) (no (unknown) (unknown) 120 mg PO QAM (units ( unknown) date) unknown) (unknown) (no (unknown) (unknown) 18:15 (units (unkno wn) date) unknown) (unknown) (no (unknown) (unknown) 18:21 (units (unkno wn) date) unknown) (unknown) (no (unknown) (unknown) 18:30 18:30 18:30 (units (unknown) date) unknown) (unknown) (no (unknown) (unknown) 20 mg PO DAILY (units (unknown) date) unknown) (unknown) (no (unknown) (unknown) 20 mg PO QAM (units (u nknown) date) unknown) (unknown) (no (unknown) (unknown) 25 mg PO DAILY (units (unknown) date) unknown) (unknown) (no (unknown) (unknown) 40 mg PO QAM (units (u nknown) date) unknown) (unknown) (no (unknown) (unknown) 40 mg PO QPM (units (u nknown) date) unknown) (unknown) (no (unknown) (unknown) 400 unit PO DAILY (units (unknown) date) unknown) (unknown) (no (unknown) (unknown) 75 mg PO QAM (units (u nknown) date) unknown) (unknown) (no (unknown) (unknown) 81 mg PO QDAY Qty: (units (unknown) date) 0 unknown) (unknown) (no (unknown) (unknown) 88 mcg PO QAM (units ( unknown) date) unknown) (unknown) (no (unknown) (unknown) 90 mcg INHALATION (units (unknown) date) PRN (Reason: unknown) Shortness Of Breath) (unknown) (no (unknown) (unknown) ALT 22 (<35) IU/L (units (unknown) date) unknown) (unknown) (no (unknown) (unknown) APTT 30 (26-36) (units (unknown) date) SECONDS unknown) (unknown) (no (unknown) (unknown) AST 28 (14-36) (units (unknown) date) IU/L unknown) (unknown) (no (unknown) (unknown) Age/Sex: 87 / F (units (unknown) date) unknown) (unknown) (no (unknown) (unknown) Albumin 4.1 (units (un known) date) (3.5-5.0) g/dL unknown) (unknown) (no (unknown) (unknown) Albumin/Globulin (units (unknown) date) Ratio 1.3 (1.0-2.8) unknown) (unknown) (no (unknown) (unknown) Alkaline (units (unkno wn) date) Phosphatase 76 unknown) (38-126) U/L (unknown) (no (unknown) (unknown) Allergies (units (unkn own) date) unknown) (unknown) (no (unknown) (unknown) Allergy/AdvReac (units (unknown) date) Type Severity unknown) Reaction Status Date / Time (unknown) (no (unknown) (unknown) 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 (unknown) (no (unknown) (unknown) Antibiotics) (units (u nknown) date) unknown) (unknown) (no (unknown) (unknown) Aspirin (Aspirin (units (unknown) date) 81 Mg Chew Tab) 324 unknown) mg PO NOW ONE (unknown) (no (unknown) (unknown) BUN 26 H (7-17) (units (unknown) date) mg/dL unknown) (unknown) (no (unknown) (unknown) BUN/Creatinine (units (unknown) date) Ratio 24.5 H (6-22) unknown) (unknown) (no (unknown) (unknown) Baso # (Auto) 100 (units (unknown) date) (0-100) /uL unknown) (unknown) (no (unknown) (unknown) Baso % (Auto) 0.4 (units (unknown) date) (0-2) % unknown) (unknown) (no (unknown) (unknown) 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 unknown) (unknown) (no (unknown) (unknown) Blood Pressure (units (unknown) date) 141/61 H 04/14/23 unknown) 18:15 (unknown) (no (unknown) (unknown) Blood Pressure (units (unknown) date) 141/61 H unknown) (unknown) (no (unknown) (unknown) Breathing (units (unkn own) date) unknown) (unknown) (no (unknown) (unknown) 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) unknown) (unknown) (no (unknown) (unknown) CK-MB (CK-2) Rel (units (unknown) date) Index TNP unknown) (unknown) (no (unknown) (unknown) CK-MB (CK-2) TNP (units (unknown) date) unknown) 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 (unknown) (no (unknown) (unknown) COVID19 -Nasal (units (unknown) date) RAPID Stat unknown) (unknown) (no (unknown) (unknown) Calcium 10.0 (units (u nknown) date) (8.4-10.2) mg/dL unknown) (unknown) (no (unknown) (unknown) Carbon Dioxide 33 (units (unknown) date) H (22-32) mmol/L unknown) (unknown) (no (unknown) (unknown) Chief Complaint: (units (unknown) date) Chest Pain unknown) (unknown) (no (unknown) (unknown) Chloride 95 L (units ( unknown) date) (98-107) mmol/L unknown) (unknown) (no (unknown) (unknown) Complete Blood (units (unknown) date) Count AUTO DIFF unknown) Stat (unknown) (no (unknown) (unknown) Comprehensive (units ( unknown) date) Metabolic Panel unknown) Stat (unknown) (no (unknown) (unknown) Course (units (unkno wn) date) unknown) (unknown) (no (unknown) (unknown) Creatinine 1.06 H (units (unknown) date) (0.52-1.04) mg/dL unknown) (unknown) (no (unknown) (unknown) : 1935 (units (unknown) date) Acct:[id number] unknown) (unknown) (no (unknown) (unknown) Date of Service: (units (unknown) date) 02/09/23 unknown) (unknown) (no (unknown) (unknown) Departure (units (unkn own) date) unknown) (unknown) (no (unknown) (unknown) Discharge Plan (units (unknown) date) unknown) (unknown) (no (unknown) (unknown) Discontinued (units (u nknown) date) Medications unknown) (unknown) (no (unknown) (unknown) ED Orders (units (unkn own) date) unknown) (unknown) (no (unknown) (unknown) EKG-12 Lead Stat (units (unknown) date) unknown) (unknown) (no (unknown) (unknown) ER Physician: (units ( unknown) date) Glo Vela D.O. unknown) (unknown) (no (unknown) (unknown) Elevated TSH (units (u nknown) date) unknown) (unknown) (no (unknown) (unknown) Emergency Report (units (unknown) date) unknown) (unknown) (no (unknown) (unknown) Eos # (Auto) 100 (units (unknown) date) (0-450) /uL unknown) (unknown) (no (unknown) (unknown) Eos % (Auto) 0.9 L (units (unknown) date) (2-4) % unknown) (unknown) (no (unknown) (unknown) Estimated GFR 51 L (units (unknown) date) (>60) mL/min unknown) (unknown) (no (unknown) (unknown) Exam (units (unkno wn) date) unknown) (unknown) (no (unknown) (unknown) Family History (units (unknown) date) (Reviewed 02/09/23 unknown) @ 19:13 by Glo Vela DO) (unknown) (no (unknown) (unknown) Father Lung cancer (units (unknown) date) unknown) (unknown) (no (unknown) (unknown) Flonase 50 mcg (units (unknown) date) unknown) (unknown) (no (unknown) (unknown) Flonase PRN Dry (units (unknown) date) Nasal Passages unknown) 07/24/22 (unknown) (no (unknown) (unknown) General (units (unkno wn) date) unknown) (unknown) (no (unknown) (unknown) Globulin 3.2 (units (u nknown) date) (1.7-4.1) g/dL unknown) (unknown) (no (unknown) (unknown) Glucose 167 H (units ( unknown) date) (80-110) mg/dL unknown) (unknown) (no (unknown) (unknown) H/O hysterectomy (units (unknown) date) with oophorectomy unknown) (unknown) (no (unknown) (unknown) 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 (unknown) (no (unknown) (unknown) HPI - Chest Pain (units (unknown) date) unknown) (unknown) (no (unknown) (unknown) HTN (hypertension) (units (unknown) date) unknown) (unknown) (no (unknown) (unknown) Hct 41.3 (36-46) % (units (unknown) date) unknown) (unknown) (no (unknown) (unknown) Hgb 13.8 (units (unkno wn) date) (12.0-16.0) g/dL unknown) (unknown) (no (unknown) (unknown) Home Medications (units (unknown) date) unknown) (unknown) (no (unknown) (unknown) Hx of heart artery (units (unknown) date) stent unknown) (unknown) (no (unknown) (unknown) Hyperlipidemia (units (unknown) date) unknown) (unknown) (no (unknown) (unknown) INHALATION PRN (units (unknown) date) (Reason: Shortness unknown) Of Breath Or Wheezing) (unknown) (no (unknown) (unknown) INR 1.1 (0.9-1.3) (units (unknown) date) unknown) (unknown) (no (unknown) (unknown) Initial Vital (units ( unknown) date) Signs unknown) (unknown) (no (unknown) (unknown) Initial Vital (units ( unknown) date) Signs: unknown) (unknown) (no (unknown) (unknown) [facility] (units (unknown) date) [address] unknown) [place] [address] (unknown) (no (unknown) (unknown) Lab Data (units (unkno wn) date) unknown) (unknown) (no (unknown) (unknown) Lab Results (units (un known) date) unknown) (unknown) (no (unknown) (unknown) Labs: (units (unkno wn) date) unknown) (unknown) (no (unknown) (unknown) Limitations: no (units (unknown) date) limitations unknown) (unknown) (no (unknown) (unknown) Lipase 45 (23-300) (units (unknown) date) U/L unknown) (unknown) (no (unknown) (unknown) Lipase Stat (units (un known) date) unknown) (unknown) (no (unknown) (unknown) Lymph # (Auto) (units (unknown) date) 1200 (4124-3890) unknown) /uL (unknown) (no (unknown) (unknown) Lymph % (Auto) 9.2 (units (unknown) date) L (25-40) % unknown) (unknown) (no (unknown) (unknown) MCH 28.7 (26-34) (units (unknown) date) PG unknown) (unknown) (no (unknown) (unknown) MCHC 33.6 (30-36) (units (unknown) date) % unknown) (unknown) (no (unknown) (unknown) MCV 85.4 (80-100) (units (unknown) date) fL unknown) (unknown) (no (unknown) (unknown) MDM - Chest Pain (units (unknown) date) unknown) (unknown) (no (unknown) (unknown) Magnesium 1.9 (units ( unknown) date) (1.6-2.3) mg/dL unknown) (unknown) (no (unknown) (unknown) Magnesium Stat (units (unknown) date) unknown) (unknown) (no (unknown) (unknown) Medical History (units (unknown) date) (Reviewed 02/09/23 unknown) @ 19:13 by Glo Vela DO) (unknown) (no (unknown) (unknown) Medication (units (unk nown) date) Instructions unknown) Recorded Confirmed (unknown) (no (unknown) (unknown) Mode of arrival: (units (unknown) date) Ambulatory unknown) (unknown) (no (unknown) (unknown) Trigg # (Auto) 700 (units (unknown) date) (0-900) /uL unknown) (unknown) (no (unknown) (unknown) Trigg % (Auto) 5.1 (units (unknown) date) (3-14) % unknown) (unknown) (no (unknown) (unknown) Mother COPD (units (un known) date) (chronic unknown) obstructive pulmonary disease) (unknown) (no (unknown) (unknown) Neut # (Auto) (units ( unknown) date) 11047 H (0602-6921) unknown) /uL (unknown) (no (unknown) (unknown) Neut % (Auto) 84.4 (units (unknown) date) H (50-75) % unknown) (unknown) (no (unknown) (unknown) No Action (units (unkn own) date) unknown) (unknown) (no (unknown) (unknown) Ordered: (units (unkno wn) date) unknown) (unknown) (no (unknown) (unknown) Orders (units (unkno wn) date) unknown) (unknown) (no (unknown) (unknown) Oxygen Delivery (units (unknown) date) Method Room Air unknown) 02/09/23 18:15 (unknown) (no (unknown) (unknown) Oxygen Delivery (units (unknown) date) Method Room Air unknown) (unknown) (no (unknown) (unknown) PRN (Reason: Dry (units (unknown) date) Nasal Passages) unknown) (unknown) (no (unknown) (unknown) PT 12.8 H (units (unkn own) date) (10.1-12.7) SECONDS unknown) (unknown) (no (unknown) (unknown) PTT Partial (units (un known) date) Thromboplastin Jorge Luis unknown) Stat (unknown) (no (unknown) (unknown) Pain (units (unkno wn) date) unknown) (unknown) (no (unknown) (unknown) Patient Comments: (units (unknown) date) unknown) (unknown) (no (unknown) (unknown) Patient History (units (unknown) date) unknown) (unknown) (no (unknown) (unknown) Patient: (units (unkno wn) date) Roselyn Mejia unknown) MR#: [id number] (unknown) (no (unknown) (unknown) Plt Count 244 (units ( unknown) date) (150-400) X103/uL unknown) (unknown) (no (unknown) (unknown) Potassium 4.0 (units ( unknown) date) (3.4-5.1) mmol/L unknown) (unknown) (no (unknown) (unknown) Prescriptions: (units (unknown) date) unknown) (unknown) (no (unknown) (unknown) Prothrombin Time (units (unknown) date) INR Stat unknown) (unknown) (no (unknown) (unknown) Pulse Oximetry 96 (units (unknown) date) 02/09/23 18:15 unknown) (unknown) (no (unknown) (unknown) Pulse Oximetry 96 (units (unknown) date) unknown) (unknown) (no (unknown) (unknown) Pulse Rate 84 (units ( unknown) date) 02/09/23 18:15 unknown) (unknown) (no (unknown) (unknown) Pulse Rate 84 (units ( unknown) date) unknown) (unknown) (no (unknown) (unknown) RBC 4.83 (4.0-5.2) (units (unknown) date) X106/uL unknown) (unknown) (no (unknown) (unknown) RDW 16.3 H (units (unk nown) date) (11.6-14.8) % unknown) (unknown) (no (unknown) (unknown) ROS Unobtainable: (units (unknown) date) All systems unknown) reviewed + are unremarkable except as noted in HPI (unknown) (no (unknown) (unknown) Referrals: (units (unk nown) date) unknown) (unknown) (no (unknown) (unknown) Related Data (units (u nknown) date) unknown) (unknown) (no (unknown) (unknown) Respiratory Rate (units (unknown) date) 20 02/09/23 18:15 unknown) (unknown) (no (unknown) (unknown) Respiratory Rate (units (unknown) date) 20 unknown) (unknown) (no (unknown) (unknown) Review of Systems (units (unknown) date) unknown) (unknown) (no (unknown) (unknown) Robitussin DM To (units (unknown) date) Go 10 ml PO PRN unknown) Cough 07/24/22 (unknown) (no (unknown) (unknown) Robitussin DM To (units (unknown) date) Go unknown) (unknown) (no (unknown) (unknown) Rx Instructions: (units (unknown) date) unknown) (unknown) (no (unknown) (unknown) Signed By: (units (unk nown) date) unknown) (unknown) (no (unknown) (unknown) Skin (units (unkno wn) date) unknown) (unknown) (no (unknown) (unknown) Smoking Status: (units (unknown) date) Former smoker unknown) (unknown) (no (unknown) (unknown) Social History (units (unknown) date) (Reviewed 02/09/23 unknown) @ 19:13 by Glo Vela DO) (unknown) (no (unknown) (unknown) Sodium 135 L (units (u nknown) date) (137-145) mmol/L unknown) (unknown) (no (unknown) (unknown) Source: patient (units (unknown) date) unknown) (unknown) (no (unknown) (unknown) Stated Complaint: (units (unknown) date) has COPD, sent [facility], unknown) heaviness in chest,'enzyme mary alice (unknown) (no (unknown) (unknown) Status post (units (un known) date) cholecystectomy unknown) (unknown) (no (unknown) (unknown) Stop: 02/09/23 (units (unknown) date) 18:22 unknown) (unknown) (no (unknown) (unknown) Substance Use (units ( unknown) date) Type: does not use unknown) (unknown) (no (unknown) (unknown) Sulfa (Sulfonamide (units (unknown) date) Allergy unknown) Intermediate rash Verified 02/09/23 18:21 (unknown) (no (unknown) (unknown) Surgical History (units (unknown) date) (Reviewed 02/09/23 unknown) @ 19:13 by Glo Vela DO) (unknown) (no (unknown) (unknown) TAKE 1 CAPSULE BY (units (unknown) date) MOUTH ONCE DAILY unknown) (unknown) (no (unknown) (unknown) TAKE 1 TABLET BY (units (unknown) date) MOUTH ONCE DAILY IN unknown) THE MORNING (unknown) (no (unknown) (unknown) TAKE 1 TABLET BY (units (unknown) date) MOUTH ONCE DAILY unknown) (unknown) (no (unknown) (unknown) Temperature 98.1 F (units (unknown) date) 02/09/23 18:15 unknown) (unknown) (no (unknown) (unknown) Temperature 98.1 F (units (unknown) date) unknown) (unknown) (no (unknown) (unknown) Time Seen by (units (u nknown) date) Provider: 02/09/23 unknown) 19:10 (unknown) (no (unknown) (unknown) Total Bilirubin (units (unknown) date) 2.7 H (0.2-1.3) unknown) mg/dL (unknown) (no (unknown) (unknown) Total Creatine (units (unknown) date) Kinase 30 (30-135) unknown) U/L (unknown) (no (unknown) (unknown) Total Protein 7.3 (units (unknown) date) (6.3-8.2) g/dL unknown) (unknown) (no (unknown) (unknown) Troponin + CK (units ( unknown) date) Cardiac Panel Stat unknown) (unknown) (no (unknown) (unknown) Troponin I 0.017 (units (unknown) date) (0.01-0.034) ng/mL unknown) (unknown) (no (unknown) (unknown) Unstable angina (units (unknown) date) unknown) (unknown) (no (unknown) (unknown) Valvular heart (units (unknown) date) disease unknown) (unknown) (no (unknown) (unknown) Vital Signs - 8 hr (units (unknown) date) unknown) (unknown) (no (unknown) (unknown) Vital Signs (units (un known) date) unknown) (unknown) (no (unknown) (unknown) Vital signs: (units (u nknown) date) unknown) (unknown) (no (unknown) (unknown) WBC 12.8 H (units (unk nown) date) (4.5-11.0) X103/uL unknown) (unknown) (no (unknown) (unknown) Katy Salazar, (units (unknown) date) 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 [Primary Care unknown) Provider] (unknown) (no (unknown) (unknown) XR chest 1V Stat (units (unknown) date) unknown) (unknown) (no (unknown) (unknown) [Embedded Image (units (unknown) date) Not Available] unknown) (unknown) (no (unknown) (unknown) [From Bactrim] (units (unknown) date) unknown) (unknown) (no (unknown) (unknown) [From Trilipix] (units (unknown) date) Upset unknown) (unknown) (no (unknown) (unknown) acarbose Allergy (units (unknown) date) Intermediate unknown) Abdominal Verified 02/09/23 18:21 (unknown) (no (unknown) (unknown) albuterol 90 (units (u nknown) date) mcg/actuation unknown) Aerosol (unknown) (no (unknown) (unknown) albuterol 90 (units (u nknown) date) mcg/actuation unknown) aerosol 90 mcg inhalation PRN Shortness Of 07/24/22 (unknown) (no (unknown) (unknown) alcohol intake (units (unknown) date) frequency: 0-2 unknown) drinks per day (unknown) (no (unknown) (unknown) alcohol intake: (units (unknown) date) never unknown) (unknown) (no (unknown) (unknown) amlodipine Allergy (units (unknown) date) Intermediate unknown) Verified 02/09/23 18:21 (unknown) (no (unknown) (unknown) and below (units (unkn own) date) unknown) (unknown) (no (unknown) (unknown) aspirin 81 MG (units ( unknown) date) tablet,delayed unknown) release (DR/EC) (unknown) (no (unknown) (unknown) aspirin 81 mg (units ( unknown) date) tablet,delayed 81 unknown) mg PO QDAY ##0 09/14/17 07/24/22 (unknown) (no (unknown) (unknown) atorvastatin 20 mg (units (unknown) date) tablet (Lipitor) 40 unknown) mg PO QPM 07/08/22 07/24/22 (unknown) (no (unknown) (unknown) atorvastatin (units (u nknown) date) [Lipitor] 20 mg unknown) tablet (unknown) (no (unknown) (unknown) budesonide [From (units (unknown) date) Symbicort] Allergy unknown) Mild Anxiety Verified 02/09/23 18:21 (unknown) (no (unknown) (unknown) capsule,extended (units (unknown) date) release 24 hr unknown) (unknown) (no (unknown) (unknown) carvedilol Allergy (units (unknown) date) Mild Rash Verified unknown) 02/09/23 18:21 (unknown) (no (unknown) (unknown) chlorthalidone (units (unknown) date) Allergy unknown) Intermediate Redness of Verified 02/09/23 18:21 (unknown) (no (unknown) (unknown) choline (units (unkno wn) date) fenofibrate Allergy unknown) Mild Gastrointestinal Verified 02/09/23 18:21 (unknown) (no (unknown) (unknown) clopidogrel 75 mg (units (unknown) date) tablet 75 mg PO QAM unknown) 07/24/22 07/24/22 (unknown) (no (unknown) (unknown) clopidogrel 75 mg (units (unknown) date) tablet unknown) (unknown) (no (unknown) (unknown) cyclobenzaprine 10 (units (unknown) date) mg Tablet unknown) (unknown) (no (unknown) (unknown) cyclobenzaprine 10 (units (unknown) date) mg tablet 10 mg PO unknown) TID PRN Muscle Spasm 07/24/22 07/24/22 (unknown) (no (unknown) (unknown) diltiazem HCl 120 (units (unknown) date) mg 120 mg PO QAM unknown) 07/08/22 07/24/22 (unknown) (no (unknown) (unknown) diltiazem HCl (units ( unknown) date) [Cartia XT] 120 mg unknown) capsule,extended release 24hr (unknown) (no (unknown) (unknown) doxazosin [From (units (unknown) date) Cardura] Allergy unknown) Intermediate Rash Verified 02/09/23 18:21 (unknown) (no (unknown) (unknown) doxycycline (units (un known) date) Allergy unknown) Intermediate Rash Verified 02/09/23 18:21 (unknown) (no (unknown) (unknown) formoterol [From (units (unknown) date) Symbicort] Allergy unknown) Mild Anxiety Verified 02/09/23 18:21 (unknown) (no (unknown) (unknown) furosemide 40 mg (units (unknown) date) tablet 40 mg PO QAM unknown) 07/08/22 07/08/22 (unknown) (no (unknown) (unknown) furosemide 40 mg (units (unknown) date) tablet unknown) (unknown) (no (unknown) (unknown) gemfibrozil (units (un known) date) Allergy unknown) Intermediate Rash Verified 02/09/23 18:21 (unknown) (no (unknown) (unknown) household members: (units (unknown) date) family and children unknown) (unknown) (no (unknown) (unknown) inhaler Breath (units (unknown) date) unknown) (unknown) (no (unknown) (unknown) ipratropium 0.5 (units (unknown) date) mg-albuterol 3 mg unknown) ml inhalation PRN Shortness Of 07/24/22 (unknown) (no (unknown) (unknown) ipratropium-albute (units (unknown) date) rol 0.5 mg-3 mg(2.5 unknown) mg base)/3 mL solution for nebulization (unknown) (no (unknown) (unknown) isosorbide (units (unk nown) date) mononitrate 120 mg unknown) 120 mg PO QAM 07/08/22 07/24/22 (unknown) (no (unknown) (unknown) isosorbide (units (unk nown) date) mononitrate 120 mg unknown) tablet extended release 24 hr (unknown) (no (unknown) (unknown) levofloxacin (units (u nknown) date) Allergy unknown) Intermediate Rash Verified 02/09/23 18:21 (unknown) (no (unknown) (unknown) levothyroxine 88 (units (unknown) date) mcg tablet 88 mcg unknown) PO QAM 07/08/22 07/24/22 (unknown) (no (unknown) (unknown) levothyroxine 88 (units (unknown) date) mcg tablet unknown) (unknown) (no (unknown) (unknown) lisinopril 40 mg (units (unknown) date) tablet 20 mg PO QAM unknown) 07/08/22 07/24/22 (unknown) (no (unknown) (unknown) lisinopril 40 mg (units (unknown) date) tablet unknown) (unknown) (no (unknown) (unknown) losartan Allergy (units (unknown) date) Intermediate Rash unknown) Verified 02/09/23 18:21 (unknown) (no (unknown) (unknown) metoprolol AdvReac (units (unknown) date) Intermediate unknown) Verified 02/09/23 18:21 (unknown) (no (unknown) (unknown) metoprolol (units (unk nown) date) succinate 25 mg 25 unknown) mg PO DAILY 07/24/22 07/24/22 (unknown) (no (unknown) (unknown) metoprolol (units (unk nown) date) succinate 25 mg unknown) tablet extended release 24 hr (unknown) (no (unknown) (unknown) montelukast [From (units (unknown) date) Singulair] Allergy unknown) Intermediate Difficulty Verified 02/09/23 (unknown) (no (unknown) (unknown) morning (units (unkno wn) date) unknown) (unknown) (no (unknown) (unknown) multivitamin 1 tab (units (unknown) date) PO DAILY 09/10/18 unknown) 07/24/22 (unknown) (no (unknown) (unknown) multivitamin (units (u nknown) date) Tablet,Chewable unknown) (unknown) (no (unknown) (unknown) nifedipine Allergy (units (unknown) date) Intermediate Chills unknown) Verified 02/09/23 18:21 (unknown) (no (unknown) (unknown) nitroglycerin 0.4 (units (unknown) date) mg sublingual 0.4 unknown) mg sublingual Q5-15M PRN Chest 09/10/18 (unknown) (no (unknown) (unknown) nitroglycerin (units ( unknown) date) [Nitrostat] 0.4 mg unknown) Tablet, Sublingual (unknown) (no (unknown) (unknown) omega (units (unkno wn) date) [id number] oil unknown) 1,000 mg 1,000 mg PO DAILY 09/10/18 07/24/22 (unknown) (no (unknown) (unknown) omega (units (unkno wn) date) [id number] oil unknown) [Fish Oil] 1,000 mg (120 mg-180 mg) Capsule (unknown) (no (unknown) (unknown) patient states she (units (unknown) date) forgets to take unknown) (unknown) (no (unknown) (unknown) pt has not (units (unk n) date) started, 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 unknown) d/c 07/14/22 (unknown) (no (unknown) (unknown) release (units (unkno wn) date) unknown) (unknown) (no (unknown) (unknown) soln (units (unkno wn) date) unknown) (unknown) (no (unknown) (unknown) sulfamethoxazole (units (unknown) date) Allergy unknown) Intermediate Rash Verified 02/09/23 18:21 (unknown) (no (unknown) (unknown) tablet (Nitrostat) (units (unknown) date) Pain unknown) (unknown) (no (unknown) (unknown) tablet,extended (units (unknown) date) release 24 hr unknown) (unknown) (no (unknown) (unknown) tobacco type: (units ( unknown) date) cigarettes unknown) (unknown) (no (unknown) (unknown) torsemide 20 mg (units (unknown) date) Tablet unknown) (unknown) (no (unknown) (unknown) torsemide 20 mg (units (unknown) date) tablet 20 mg PO unknown) DAILY 07/24/22 07/24/22 (unknown) (no (unknown) (unknown) trimethoprim [From (units (unknown) date) Bactrim] Allergy unknown) Intermediate Rash Verified 02/09/23 18:21 (unknown) (no (unknown) (unknown) vitamin E 268 mg (units (unknown) date) (400 unit) capsule unknown) 400 unit PO DAILY 09/10/18 07/24/22 (unknown) (no (unknown) (unknown) vitamin E 400 unit (units (unknown) date) Capsule unknown) Result panel [id number] (unknown) (no (unknown) (unknown) (no value) (units (unk nown) date) unknown) (unknown) (no (unknown) (unknown) (120 mg-180 mg) (units (unknown) date) capsule (Fish Oil) unknown) (unknown) (no (unknown) (unknown) (2.5 mg base)/3 mL (units (unknown) date) nebulization Breath unknown) Or Wheezing (unknown) (no (unknown) (unknown) (Cartia XT) (units (un known) date) unknown) (unknown) (no (unknown) (unknown) 0.4 mg SUBLINGUAL (units (unknown) date) Q5-15M PRN (Reason: unknown) Chest Pain) (unknown) (no (unknown) (unknown) [id number] (units (unkno wn) date) unknown) (unknown) (no (unknown) (unknown) 02/09/23 02/09/23 (units (unknown) date) 02/09/23 unknown) Range/Units (unknown) (no (unknown) (unknown) 02/09/23 18:21 (units (unknown) date) unknown) (unknown) (no (unknown) (unknown) 02/09/23 18:30 (units (unknown) date) unknown) (unknown) (no (unknown) (unknown) 02/09/23 (units (unkno wn) date) unknown) (unknown) (no (unknown) (unknown) 07/24/22 (units (unkno wn) date) unknown) (unknown) (no (unknown) (unknown) 1 tab PO DAILY (units (unknown) date) unknown) (unknown) (no (unknown) (unknown) 1,000 mg PO DAILY (units (unknown) date) unknown) (unknown) (no (unknown) (unknown) 10 mg PO TID PRN (units (unknown) date) (Reason: Muscle unknown) Spasm) (unknown) (no (unknown) (unknown) 10 ml PO PRN (units (u nknown) date) (Reason: Cough) unknown) (unknown) (no (unknown) (unknown) 10-100mg/5ml (units (u nknown) date) liquid. take 10ml unknown) by mouth every 4 hrs as needed for cough (unknown) (no (unknown) (unknown) 120 mg PO QAM (units ( unknown) date) unknown) (unknown) (no (unknown) (unknown) 18:15 (units (unkno wn) date) unknown) (unknown) (no (unknown) (unknown) 18:21 (units (unkno wn) date) unknown) (unknown) (no (unknown) (unknown) 18:30 18:30 18:30 (units (unknown) date) unknown) (unknown) (no (unknown) (unknown) 20 mg PO DAILY (units (unknown) date) unknown) (unknown) (no (unknown) (unknown) 20 mg PO QAM (units (u nknown) date) unknown) (unknown) (no (unknown) (unknown) 25 mg PO DAILY (units (unknown) date) unknown) (unknown) (no (unknown) (unknown) 40 mg PO QAM (units (u nknown) date) unknown) (unknown) (no (unknown) (unknown) 40 mg PO QPM (units (u nknown) date) unknown) (unknown) (no (unknown) (unknown) 400 unit PO DAILY (units (unknown) date) unknown) (unknown) (no (unknown) (unknown) 75 mg PO QAM (units (u nknown) date) unknown) (unknown) (no (unknown) (unknown) 81 mg PO QDAY Qty: (units (unknown) date) 0 unknown) (unknown) (no (unknown) (unknown) 88 mcg PO QAM (units ( unknown) date) unknown) (unknown) (no (unknown) (unknown) 90 mcg INHALATION (units (unknown) date) PRN (Reason: unknown) Shortness Of Breath) (unknown) (no (unknown) (unknown) ALT 22 (<35) IU/L (units (unknown) date) unknown) (unknown) (no (unknown) (unknown) APTT 30 (26-36) (units (unknown) date) SECONDS unknown) (unknown) (no (unknown) (unknown) AST 28 (14-36) (units (unknown) date) IU/L unknown) (unknown) (no (unknown) (unknown) Age/Sex: 87 / F (units (unknown) date) unknown) (unknown) (no (unknown) (unknown) Albumin 4.1 (units (un known) date) (3.5-5.0) g/dL unknown) (unknown) (no (unknown) (unknown) Albumin/Globulin (units (unknown) date) Ratio 1.3 (1.0-2.8) unknown) (unknown) (no (unknown) (unknown) Alkaline (units (unkno wn) date) Phosphatase 76 unknown) (38-126) U/L (unknown) (no (unknown) (unknown) Allergies (units (unkn own) date) unknown) (unknown) (no (unknown) (unknown) Allergy/AdvReac (units (unknown) date) Type Severity unknown) Reaction Status Date / Time (unknown) (no (unknown) (unknown) 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 (unknown) (no (unknown) (unknown) Antibiotics) (units (u nknown) date) unknown) (unknown) (no (unknown) (unknown) Aspirin (Aspirin (units (unknown) date) 81 Mg Chew Tab) 324 unknown) mg PO NOW ONE (unknown) (no (unknown) (unknown) BUN 26 H (7-17) (units (unknown) date) mg/dL unknown) (unknown) (no (unknown) (unknown) BUN/Creatinine (units (unknown) date) Ratio 24.5 H (6-22) unknown) (unknown) (no (unknown) (unknown) Baso # (Auto) 100 (units (unknown) date) (0-100) /uL unknown) (unknown) (no (unknown) (unknown) Baso % (Auto) 0.4 (units (unknown) date) (0-2) % unknown) (unknown) (no (unknown) (unknown) 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 unknown) (unknown) (no (unknown) (unknown) Blood Pressure (units (unknown) date) 141/61 H 02/09/23 unknown) 18:15 (unknown) (no (unknown) (unknown) Blood Pressure (units (unknown) date) 141/61 H unknown) (unknown) (no (unknown) (unknown) Breathing (units (unkn own) date) unknown) (unknown) (no (unknown) (unknown) 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) unknown) (unknown) (no (unknown) (unknown) CK-MB (CK-2) Rel (units (unknown) date) Index TNP unknown) (unknown) (no (unknown) (unknown) CK-MB (CK-2) TNP (units (unknown) date) unknown) 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 (unknown) (no (unknown) (unknown) COVID19 -Nasal (units (unknown) date) RAPID Stat unknown) (unknown) (no (unknown) (unknown) Calcium 10.0 (units (u nknown) date) (8.4-10.2) mg/dL unknown) (unknown) (no (unknown) (unknown) Carbon Dioxide 33 (units (unknown) date) H (22-32) mmol/L unknown) (unknown) (no (unknown) (unknown) Chief Complaint: (units (unknown) date) Chest Pain unknown) (unknown) (no (unknown) (unknown) Chloride 95 L (units ( unknown) date) (98-107) mmol/L unknown) (unknown) (no (unknown) (unknown) Complete Blood (units (unknown) date) Count AUTO DIFF unknown) Stat (unknown) (no (unknown) (unknown) Comprehensive (units ( unknown) date) Metabolic Panel unknown) Stat (unknown) (no (unknown) (unknown) Course (units (unkno wn) date) unknown) (unknown) (no (unknown) (unknown) Creatinine 1.06 H (units (unknown) date) (0.52-1.04) mg/dL unknown) (unknown) (no (unknown) (unknown) : 1935 (units (unknown) date) Acct:[id number] unknown) (unknown) (no (unknown) (unknown) Date of Service: (units (unknown) date) 02/09/23 unknown) (unknown) (no (unknown) (unknown) Departure (units (unkn own) date) unknown) (unknown) (no (unknown) (unknown) Discharge Plan (units (unknown) date) unknown) (unknown) (no (unknown) (unknown) Discontinued (units (u nknown) date) Medications unknown) (unknown) (no (unknown) (unknown) ED Orders (units (unkn own) date) unknown) (unknown) (no (unknown) (unknown) EKG-12 Lead Stat (units (unknown) date) unknown) (unknown) (no (unknown) (unknown) ER Physician: (units ( unknown) date) Glo Vela D.O. unknown) (unknown) (no (unknown) (unknown) Elevated TSH (units (u nknown) date) unknown) (unknown) (no (unknown) (unknown) Emergency Report (units (unknown) date) unknown) (unknown) (no (unknown) (unknown) Eos # (Auto) 100 (units (unknown) date) (0-450) /uL unknown) (unknown) (no (unknown) (unknown) Eos % (Auto) 0.9 L (units (unknown) date) (2-4) % unknown) (unknown) (no (unknown) (unknown) Estimated GFR 51 L (units (unknown) date) (>60) mL/min unknown) (unknown) (no (unknown) (unknown) Exam (units (unkno wn) date) unknown) (unknown) (no (unknown) (unknown) Family History (units (unknown) date) (Reviewed 02/09/23 unknown) @ 19:13 by Glo Vela DO) (unknown) (no (unknown) (unknown) Father Lung cancer (units (unknown) date) unknown) (unknown) (no (unknown) (unknown) Flonase 50 mcg (units (unknown) date) unknown) (unknown) (no (unknown) (unknown) Flonase PRN Dry (units (unknown) date) Nasal Passages unknown) 07/24/22 (unknown) (no (unknown) (unknown) General (units (unkno wn) date) unknown) (unknown) (no (unknown) (unknown) Globulin 3.2 (units (u nknown) date) (1.7-4.1) g/dL unknown) (unknown) (no (unknown) (unknown) Glucose 167 H (units ( unknown) date) (80-110) mg/dL unknown) (unknown) (no (unknown) (unknown) H/O hysterectomy (units (unknown) date) with oophorectomy unknown) (unknown) (no (unknown) (unknown) 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 (unknown) (no (unknown) (unknown) HPI - Chest Pain (units (unknown) date) unknown) (unknown) (no (unknown) (unknown) HTN (hypertension) (units (unknown) date) unknown) (unknown) (no (unknown) (unknown) Hct 41.3 (36-46) % (units (unknown) date) unknown) (unknown) (no (unknown) (unknown) Hgb 13.8 (units (unkno wn) date) (12.0-16.0) g/dL unknown) (unknown) (no (unknown) (unknown) Home Medications (units (unknown) date) unknown) (unknown) (no (unknown) (unknown) Hx of heart artery (units (unknown) date) stent unknown) (unknown) (no (unknown) (unknown) Hyperlipidemia (units (unknown) date) unknown) (unknown) (no (unknown) (unknown) INHALATION PRN (units (unknown) date) (Reason: Shortness unknown) Of Breath Or Wheezing) (unknown) (no (unknown) (unknown) INR 1.1 (0.9-1.3) (units (unknown) date) unknown) (unknown) (no (unknown) (unknown) Initial Vital (units ( unknown) date) Signs unknown) (unknown) (no (unknown) (unknown) Initial Vital (units ( unknown) date) Signs: unknown) (unknown) (no (unknown) (unknown) [facility] (units (unknown) date) [address] unknown) [place] [address] (unknown) (no (unknown) (unknown) Lab Data (units (unkno wn) date) unknown) (unknown) (no (unknown) (unknown) Lab Results (units (un known) date) unknown) (unknown) (no (unknown) (unknown) Labs: (units (unkno wn) date) unknown) (unknown) (no (unknown) (unknown) Limitations: no (units (unknown) date) limitations unknown) (unknown) (no (unknown) (unknown) Lipase 45 (23-300) (units (unknown) date) U/L unknown) (unknown) (no (unknown) (unknown) Lipase Stat (units (un known) date) unknown) (unknown) (no (unknown) (unknown) Lymph # (Auto) (units (unknown) date) 1200 (4335-5624) unknown) /uL (unknown) (no (unknown) (unknown) Lymph % (Auto) 9.2 (units (unknown) date) L (25-40) % unknown) (unknown) (no (unknown) (unknown) MCH 28.7 (26-34) (units (unknown) date) PG unknown) (unknown) (no (unknown) (unknown) MCHC 33.6 (30-36) (units (unknown) date) % unknown) (unknown) (no (unknown) (unknown) MCV 85.4 (80-100) (units (unknown) date) fL unknown) (unknown) (no (unknown) (unknown) MDM - Chest Pain (units (unknown) date) unknown) (unknown) (no (unknown) (unknown) Magnesium 1.9 (units ( unknown) date) (1.6-2.3) mg/dL unknown) (unknown) (no (unknown) (unknown) Magnesium Stat (units (unknown) date) unknown) (unknown) (no (unknown) (unknown) Medical History (units (unknown) date) (Reviewed 02/09/23 unknown) @ 19:13 by Glo Vela DO) (unknown) (no (unknown) (unknown) Medication (units (unk nown) date) Instructions unknown) Recorded Confirmed (unknown) (no (unknown) (unknown) Mode of arrival: (units (unknown) date) Ambulatory unknown) (unknown) (no (unknown) (unknown) Trigg # (Auto) 700 (units (unknown) date) (0-900) /uL unknown) (unknown) (no (unknown) (unknown) Trigg % (Auto) 5.1 (units (unknown) date) (3-14) % unknown) (unknown) (no (unknown) (unknown) Mother COPD (units (un known) date) (chronic unknown) obstructive pulmonary disease) (unknown) (no (unknown) (unknown) Neut # (Auto) (units ( unknown) date) 85486 H (7690-9430) unknown) /uL (unknown) (no (unknown) (unknown) Neut % (Auto) 84.4 (units (unknown) date) H (50-75) % unknown) (unknown) (no (unknown) (unknown) No Action (units (unkn own) date) unknown) (unknown) (no (unknown) (unknown) Ordered: (units (unkno wn) date) unknown) (unknown) (no (unknown) (unknown) Orders (units (unkno wn) date) unknown) (unknown) (no (unknown) (unknown) Oxygen Delivery (units (unknown) date) Method Room Air unknown) 02/09/23 18:15 (unknown) (no (unknown) (unknown) Oxygen Delivery (units (unknown) date) Method Room Air unknown) (unknown) (no (unknown) (unknown) PRN (Reason: Dry (units (unknown) date) Nasal Passages) unknown) (unknown) (no (unknown) (unknown) PT 12.8 H (units (unkn own) date) (10.1-12.7) SECONDS unknown) (unknown) (no (unknown) (unknown) PTT Partial (units (un known) date) Thromboplastin Jorge Luis unknown) Stat (unknown) (no (unknown) (unknown) Pain (units (unkno wn) date) unknown) (unknown) (no (unknown) (unknown) Patient Comments: (units (unknown) date) unknown) (unknown) (no (unknown) (unknown) Patient History (units (unknown) date) unknown) (unknown) (no (unknown) (unknown) Patient: (units (unkno wn) date) Roselyn Mejia unknown) MR#: [id number] (unknown) (no (unknown) (unknown) Plt Count 244 (units ( unknown) date) (150-400) X103/uL unknown) (unknown) (no (unknown) (unknown) Potassium 4.0 (units ( unknown) date) (3.4-5.1) mmol/L unknown) (unknown) (no (unknown) (unknown) Prescriptions: (units (unknown) date) unknown) (unknown) (no (unknown) (unknown) Prothrombin Time (units (unknown) date) INR Stat unknown) (unknown) (no (unknown) (unknown) Pulse Oximetry 96 (units (unknown) date) 02/09/23 18:15 unknown) (unknown) (no (unknown) (unknown) Pulse Oximetry 96 (units (unknown) date) unknown) (unknown) (no (unknown) (unknown) Pulse Rate 84 (units ( unknown) date) 02/09/23 18:15 unknown) (unknown) (no (unknown) (unknown) Pulse Rate 84 (units ( unknown) date) unknown) (unknown) (no (unknown) (unknown) RBC 4.83 (4.0-5.2) (units (unknown) date) X106/uL unknown) (unknown) (no (unknown) (unknown) RDW 16.3 H (units (unk nown) date) (11.6-14.8) % unknown) (unknown) (no (unknown) (unknown) ROS Unobtainable: (units (unknown) date) All systems unknown) reviewed + are unremarkable except as noted in HPI (unknown) (no (unknown) (unknown) Referrals: (units (unk nown) date) unknown) (unknown) (no (unknown) (unknown) Related Data (units (u nknown) date) unknown) (unknown) (no (unknown) (unknown) Respiratory Rate (units (unknown) date) 20 02/09/23 18:15 unknown) (unknown) (no (unknown) (unknown) Respiratory Rate (units (unknown) date) 20 unknown) (unknown) (no (unknown) (unknown) Review of Systems (units (unknown) date) unknown) (unknown) (no (unknown) (unknown) Robitussin DM To (units (unknown) date) Go 10 ml PO PRN unknown) Cough 07/24/22 (unknown) (no (unknown) (unknown) Robitussin DM To (units (unknown) date) Go unknown) (unknown) (no (unknown) (unknown) Rx Instructions: (units (unknown) date) unknown) (unknown) (no (unknown) (unknown) Signed By: (units (unk nown) date) unknown) (unknown) (no (unknown) (unknown) Skin (units (unkno wn) date) unknown) (unknown) (no (unknown) (unknown) Smoking Status: (units (unknown) date) Former smoker unknown) (unknown) (no (unknown) (unknown) Social History (units (unknown) date) (Reviewed 02/09/23 unknown) @ 19:13 by Glo Vela DO) (unknown) (no (unknown) (unknown) Sodium 135 L (units (u nknown) date) (137-145) mmol/L unknown) (unknown) (no (unknown) (unknown) Source: patient (units (unknown) date) unknown) (unknown) (no (unknown) (unknown) Stated Complaint: (units (unknown) date) has COPD, sent [facility], unknown) heaviness in chest,'enzyme mary alice (unknown) (no (unknown) (unknown) Status post (units (un known) date) cholecystectomy unknown) (unknown) (no (unknown) (unknown) Stop: 02/09/23 (units (unknown) date) 18:22 unknown) (unknown) (no (unknown) (unknown) Substance Use (units ( unknown) date) Type: does not use unknown) (unknown) (no (unknown) (unknown) Sulfa (Sulfonamide (units (unknown) date) Allergy unknown) Intermediate rash Verified 02/09/23 18:21 (unknown) (no (unknown) (unknown) Surgical History (units (unknown) date) (Reviewed 02/09/23 unknown) @ 19:13 by Glo Vela DO) (unknown) (no (unknown) (unknown) TAKE 1 CAPSULE BY (units (unknown) date) MOUTH ONCE DAILY unknown) (unknown) (no (unknown) (unknown) TAKE 1 TABLET BY (units (unknown) date) MOUTH ONCE DAILY IN unknown) THE MORNING (unknown) (no (unknown) (unknown) TAKE 1 TABLET BY (units (unknown) date) MOUTH ONCE DAILY unknown) (unknown) (no (unknown) (unknown) Temperature 98.1 F (units (unknown) date) 02/09/23 18:15 unknown) (unknown) (no (unknown) (unknown) Temperature 98.1 F (units (unknown) date) unknown) (unknown) (no (unknown) (unknown) Time Seen by (units (u nknown) date) Provider: 02/09/23 unknown) 19:10 (unknown) (no (unknown) (unknown) Total Bilirubin (units (unknown) date) 2.7 H (0.2-1.3) unknown) mg/dL (unknown) (no (unknown) (unknown) Total Creatine (units (unknown) date) Kinase 30 (30-135) unknown) U/L (unknown) (no (unknown) (unknown) Total Protein 7.3 (units (unknown) date) (6.3-8.2) g/dL unknown) (unknown) (no (unknown) (unknown) Troponin + CK (units ( unknown) date) Cardiac Panel Stat unknown) (unknown) (no (unknown) (unknown) Troponin I 0.017 (units (unknown) date) (0.01-0.034) ng/mL unknown) (unknown) (no (unknown) (unknown) Unstable angina (units (unknown) date) unknown) (unknown) (no (unknown) (unknown) Valvular heart (units (unknown) date) disease unknown) (unknown) (no (unknown) (unknown) Vital Signs - 8 hr (units (unknown) date) unknown) (unknown) (no (unknown) (unknown) Vital Signs (units (un known) date) unknown) (unknown) (no (unknown) (unknown) Vital signs: (units (u nknown) date) unknown) (unknown) (no (unknown) (unknown) WBC 12.8 H (units (unk nown) date) (4.5-11.0) X103/uL unknown) (unknown) (no (unknown) (unknown) Katy Salazar, (units (unknown) date) 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 [Primary Care unknown) Provider] (unknown) (no (unknown) (unknown) XR chest 1V Stat (units (unknown) date) unknown) (unknown) (no (unknown) (unknown) [Embedded Image (units (unknown) date) Not Available] unknown) (unknown) (no (unknown) (unknown) [From Bactrim] (units (unknown) date) unknown) (unknown) (no (unknown) (unknown) [From Trilipix] (units (unknown) date) Upset unknown) (unknown) (no (unknown) (unknown) acarbose Allergy (units (unknown) date) Intermediate unknown) Abdominal Verified 02/09/23 18:21 (unknown) (no (unknown) (unknown) albuterol 90 (units (u nknown) date) mcg/actuation unknown) Aerosol (unknown) (no (unknown) (unknown) albuterol 90 (units (u nknown) date) mcg/actuation unknown) aerosol 90 mcg inhalation PRN Shortness Of 07/24/22 (unknown) (no (unknown) (unknown) alcohol intake (units (unknown) date) frequency: 0-2 unknown) drinks per day (unknown) (no (unknown) (unknown) alcohol intake: (units (unknown) date) never unknown) (unknown) (no (unknown) (unknown) amlodipine Allergy (units (unknown) date) Intermediate unknown) Verified 02/09/23 18:21 (unknown) (no (unknown) (unknown) and below (units (unkn own) date) unknown) (unknown) (no (unknown) (unknown) aspirin 81 MG (units ( unknown) date) tablet,delayed unknown) release (DR/EC) (unknown) (no (unknown) (unknown) aspirin 81 mg (units ( unknown) date) tablet,delayed 81 unknown) mg PO QDAY ##0 09/14/17 07/24/22 (unknown) (no (unknown) (unknown) atorvastatin 20 mg (units (unknown) date) tablet (Lipitor) 40 unknown) mg PO QPM 07/08/22 07/24/22 (unknown) (no (unknown) (unknown) atorvastatin (units (u nknown) date) [Lipitor] 20 mg unknown) tablet (unknown) (no (unknown) (unknown) budesonide [From (units (unknown) date) Symbicort] Allergy unknown) Mild Anxiety Verified 02/09/23 18:21 (unknown) (no (unknown) (unknown) capsule,extended (units (unknown) date) release 24 hr unknown) (unknown) (no (unknown) (unknown) carvedilol Allergy (units (unknown) date) Mild Rash Verified unknown) 02/09/23 18:21 (unknown) (no (unknown) (unknown) chlorthalidone (units (unknown) date) Allergy unknown) Intermediate Redness of Verified 02/09/23 18:21 (unknown) (no (unknown) (unknown) choline (units (unkno wn) date) fenofibrate Allergy unknown) Mild Gastrointestinal Verified 02/09/23 18:21 (unknown) (no (unknown) (unknown) clopidogrel 75 mg (units (unknown) date) tablet 75 mg PO QAM unknown) 07/24/22 07/24/22 (unknown) (no (unknown) (unknown) clopidogrel 75 mg (units (unknown) date) tablet unknown) (unknown) (no (unknown) (unknown) cyclobenzaprine 10 (units (unknown) date) mg Tablet unknown) (unknown) (no (unknown) (unknown) cyclobenzaprine 10 (units (unknown) date) mg tablet 10 mg PO unknown) TID PRN Muscle Spasm 07/24/22 07/24/22 (unknown) (no (unknown) (unknown) diltiazem HCl 120 (units (unknown) date) mg 120 mg PO QAM unknown) 07/08/22 07/24/22 (unknown) (no (unknown) (unknown) diltiazem HCl (units ( unknown) date) [Cartia XT] 120 mg unknown) capsule,extended release 24hr (unknown) (no (unknown) (unknown) doxazosin [From (units (unknown) date) Cardura] Allergy unknown) Intermediate Rash Verified 02/09/23 18:21 (unknown) (no (unknown) (unknown) doxycycline (units (un known) date) Allergy unknown) Intermediate Rash Verified 02/09/23 18:21 (unknown) (no (unknown) (unknown) formoterol [From (units (unknown) date) Symbicort] Allergy unknown) Mild Anxiety Verified 02/09/23 18:21 (unknown) (no (unknown) (unknown) furosemide 40 mg (units (unknown) date) tablet 40 mg PO QAM unknown) 07/08/22 07/08/22 (unknown) (no (unknown) (unknown) furosemide 40 mg (units (unknown) date) tablet unknown) (unknown) (no (unknown) (unknown) gemfibrozil (units (un known) date) Allergy unknown) Intermediate Rash Verified 02/09/23 18:21 (unknown) (no (unknown) (unknown) household members: (units (unknown) date) family and children unknown) (unknown) (no (unknown) (unknown) inhaler Breath (units (unknown) date) unknown) (unknown) (no (unknown) (unknown) ipratropium 0.5 (units (unknown) date) mg-albuterol 3 mg unknown) ml inhalation PRN Shortness Of 07/24/22 (unknown) (no (unknown) (unknown) ipratropium-albute (units (unknown) date) rol 0.5 mg-3 mg(2.5 unknown) mg base)/3 mL solution for nebulization (unknown) (no (unknown) (unknown) isosorbide (units (unk nown) date) mononitrate 120 mg unknown) 120 mg PO QAM 07/08/22 07/24/22 (unknown) (no (unknown) (unknown) isosorbide (units (unk nown) date) mononitrate 120 mg unknown) tablet extended release 24 hr (unknown) (no (unknown) (unknown) levofloxacin (units (u nknown) date) Allergy unknown) Intermediate Rash Verified 02/09/23 18:21 (unknown) (no (unknown) (unknown) levothyroxine 88 (units (unknown) date) mcg tablet 88 mcg unknown) PO QAM 07/08/22 07/24/22 (unknown) (no (unknown) (unknown) levothyroxine 88 (units (unknown) date) mcg tablet unknown) (unknown) (no (unknown) (unknown) lisinopril 40 mg (units (unknown) date) tablet 20 mg PO QAM unknown) 07/08/22 07/24/22 (unknown) (no (unknown) (unknown) lisinopril 40 mg (units (unknown) date) tablet unknown) (unknown) (no (unknown) (unknown) losartan Allergy (units (unknown) date) Intermediate Rash unknown) Verified 02/09/23 18:21 (unknown) (no (unknown) (unknown) metoprolol AdvReac (units (unknown) date) Intermediate unknown) Verified 02/09/23 18:21 (unknown) (no (unknown) (unknown) metoprolol (units (unk nown) date) succinate 25 mg 25 unknown) mg PO DAILY 07/24/22 07/24/22 (unknown) (no (unknown) (unknown) metoprolol (units (unk nown) date) succinate 25 mg unknown) tablet extended release 24 hr (unknown) (no (unknown) (unknown) montelukast [From (units (unknown) date) Singulair] Allergy unknown) Intermediate Difficulty Verified 02/09/23 (unknown) (no (unknown) (unknown) morning (units (unkno wn) date) unknown) (unknown) (no (unknown) (unknown) multivitamin 1 tab (units (unknown) date) PO DAILY 09/10/18 unknown) 07/24/22 (unknown) (no (unknown) (unknown) multivitamin (units (u nknown) date) Tablet,Chewable unknown) (unknown) (no (unknown) (unknown) nifedipine Allergy (units (unknown) date) Intermediate Chills unknown) Verified 02/09/23 18:21 (unknown) (no (unknown) (unknown) nitroglycerin 0.4 (units (unknown) date) mg sublingual 0.4 unknown) mg sublingual Q5-15M PRN Chest 09/10/18 (unknown) (no (unknown) (unknown) nitroglycerin (units ( unknown) date) [Nitrostat] 0.4 mg unknown) Tablet, Sublingual (unknown) (no (unknown) (unknown) omega (units (unkno wn) date) [id number]-dbt-fish oil unknown) 1,000 mg 1,000 mg PO DAILY 09/10/18 07/24/22 (unknown) (no (unknown) (unknown) omega (units (unkno wn) date) [id number]-[id number]-fish oil unknown) [Fish Oil] 1,000 mg (120 mg-180 mg) Capsule (unknown) (no (unknown) (unknown) patient states she (units (unknown) date) forgets to take unknown) (unknown) (no (unknown) (unknown) pt has not (units (unk nown) date) started, 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 unknown) d/c 07/14/22 (unknown) (no (unknown) (unknown) release (units (unkno wn) date) unknown) (unknown) (no (unknown) (unknown) soln (units (unkno wn) date) unknown) (unknown) (no (unknown) (unknown) sulfamethoxazole (units (unknown) date) Allergy unknown) Intermediate Rash Verified 02/09/23 18:21 (unknown) (no (unknown) (unknown) tablet (Nitrostat) (units (unknown) date) Pain unknown) (unknown) (no (unknown) (unknown) tablet,extended (units (unknown) date) release 24 hr unknown) (unknown) (no (unknown) (unknown) tobacco type: (units ( unknown) date) cigarettes unknown) (unknown) (no (unknown) (unknown) torsemide 20 mg (units (unknown) date) Tablet unknown) (unknown) (no (unknown) (unknown) torsemide 20 mg (units (unknown) date) tablet 20 mg PO unknown) DAILY 07/24/22 07/24/22 (unknown) (no (unknown) (unknown) trimethoprim [From (units (unknown) date) Bactrim] Allergy unknown) Intermediate Rash Verified 02/09/23 18:21 (unknown) (no (unknown) (unknown) vitamin E 268 mg (units (unknown) date) (400 unit) capsule unknown) 400 unit PO DAILY 09/10/18 07/24/22 (unknown) (no (unknown) (unknown) vitamin E 400 unit (units (unknown) date) Capsule unknown) Result panel [id number] (unknown) (no (unknown) (unknown) (no value) (units (unk nown) date) unknown) (unknown) (no (unknown) (unknown) (120 mg-180 mg) (units (unknown) date) capsule (Fish Oil) unknown) (unknown) (no (unknown) (unknown) (2.5 mg base)/3 mL (units (unknown) date) nebulization Breath unknown) Or Wheezing (unknown) (no (unknown) (unknown) (Cartia XT) (units (un known) date) unknown) (unknown) (no (unknown) (unknown) 0.4 mg SUBLINGUAL (units (unknown) date) Q5-15M PRN (Reason: unknown) Chest Pain) (unknown) (no (unknown) (unknown) [id number] (units (unkno wn) date) unknown) (unknown) (no (unknown) (unknown) 02/09/23 02/09/23 (units (unknown) date) 02/09/23 unknown) Range/Units (unknown) (no (unknown) (unknown) 02/09/23 18:21 (units (unknown) date) unknown) (unknown) (no (unknown) (unknown) 02/09/23 18:30 (units (unknown) date) unknown) (unknown) (no (unknown) (unknown) 02/09/23 (units (unkno wn) date) unknown) (unknown) (no (unknown) (unknown) 07/24/22 (units (unkno wn) date) unknown) (unknown) (no (unknown) (unknown) 1 tab PO DAILY (units (unknown) date) unknown) (unknown) (no (unknown) (unknown) 1,000 mg PO DAILY (units (unknown) date) unknown) (unknown) (no (unknown) (unknown) 10 mg PO TID PRN (units (unknown) date) (Reason: Muscle unknown) Spasm) (unknown) (no (unknown) (unknown) 10 ml PO PRN (units (u nknown) date) (Reason: Cough) unknown) (unknown) (no (unknown) (unknown) 10-100mg/5ml (units (u nknown) date) liquid. take 10ml unknown) by mouth every 4 hrs as needed for cough (unknown) (no (unknown) (unknown) 120 mg PO QAM (units ( unknown) date) unknown) (unknown) (no (unknown) (unknown) 18:15 (units (unkno wn) date) unknown) (unknown) (no (unknown) (unknown) 18:21 (units (unkno wn) date) unknown) (unknown) (no (unknown) (unknown) 18:30 18:30 18:30 (units (unknown) date) unknown) (unknown) (no (unknown) (unknown) 20 mg PO DAILY (units (unknown) date) unknown) (unknown) (no (unknown) (unknown) 20 mg PO QAM (units (u nknown) date) unknown) (unknown) (no (unknown) (unknown) 25 mg PO DAILY (units (unknown) date) unknown) (unknown) (no (unknown) (unknown) 40 mg PO QAM (units (u nknown) date) unknown) (unknown) (no (unknown) (unknown) 40 mg PO QPM (units (u nknown) date) unknown) (unknown) (no (unknown) (unknown) 400 unit PO DAILY (units (unknown) date) unknown) (unknown) (no (unknown) (unknown) 75 mg PO QAM (units (u nknown) date) unknown) (unknown) (no (unknown) (unknown) 81 mg PO QDAY Qty: (units (unknown) date) 0 unknown) (unknown) (no (unknown) (unknown) 88 mcg PO QAM (units ( unknown) date) unknown) (unknown) (no (unknown) (unknown) 90 mcg INHALATION (units (unknown) date) PRN (Reason: unknown) Shortness Of Breath) (unknown) (no (unknown) (unknown) ABDOMEN: Soft, (units (unknown) date) nontender. unknown) Normoactive bowel sounds all 4 quadrants. No (unknown) (no (unknown) (unknown) ALT 22 (<35) IU/L (units (unknown) date) unknown) (unknown) (no (unknown) (unknown) APTT 30 (26-36) (units (unknown) date) SECONDS unknown) (unknown) (no (unknown) (unknown) AST 28 (14-36) (units (unknown) date) IU/L unknown) (unknown) (no (unknown) (unknown) Age/Sex: 87 / F (units (unknown) date) unknown) (unknown) (no (unknown) (unknown) Albumin 4.1 (units (un known) date) (3.5-5.0) g/dL unknown) (unknown) (no (unknown) (unknown) Albumin/Globulin (units (unknown) date) Ratio 1.3 (1.0-2.8) unknown) (unknown) (no (unknown) (unknown) Alkaline (units (unkno wn) date) Phosphatase 76 unknown) (38-126) U/L (unknown) (no (unknown) (unknown) Allergies (units (unkn own) date) unknown) (unknown) (no (unknown) (unknown) Allergy/AdvReac (units (unknown) date) Type Severity unknown) Reaction Status Date / Time (unknown) (no (unknown) (unknown) 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 (unknown) (no (unknown) (unknown) Antibiotics) (units (u nknown) date) unknown) (unknown) (no (unknown) (unknown) Aspirin (Aspirin (units (unknown) date) 81 Mg Chew Tab) 324 unknown) mg PO NOW ONE (unknown) (no (unknown) (unknown) BUN 26 H (7-17) (units (unknown) date) mg/dL unknown) (unknown) (no (unknown) (unknown) BUN/Creatinine (units (unknown) date) Ratio 24.5 H (6-22) unknown) (unknown) (no (unknown) (unknown) Baso # (Auto) 100 (units (unknown) date) (0-100) /uL unknown) (unknown) (no (unknown) (unknown) Baso % (Auto) 0.4 (units (unknown) date) (0-2) % unknown) (unknown) (no (unknown) (unknown) 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 (unknown) (no (unknown) (unknown) 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) unknown) (unknown) (no (unknown) (unknown) CARDIOVASCULAR: (units (unknown) date) Regular rate and unknown) rhythm without murmurs, rubs or gallops. 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 (unknown) (no (unknown) (unknown) COVID19 -Nasal (units (unknown) date) RAPID Stat unknown) (unknown) (no (unknown) (unknown) Calcium 10.0 (units (u nknown) date) (8.4-10.2) mg/dL unknown) (unknown) (no (unknown) (unknown) Carbon Dioxide 33 (units (unknown) date) H (22-32) mmol/L unknown) (unknown) (no (unknown) (unknown) Chief Complaint: (units (unknown) date) Chest Pain unknown) (unknown) (no (unknown) (unknown) Chloride 95 L (units ( unknown) date) (98-107) mmol/L unknown) (unknown) (no (unknown) (unknown) Complete Blood (units (unknown) date) Count AUTO DIFF unknown) Stat (unknown) (no (unknown) (unknown) Comprehensive (units ( unknown) date) Metabolic Panel unknown) Stat (unknown) (no (unknown) (unknown) Course (units (unkno wn) date) unknown) (unknown) (no (unknown) (unknown) Creatinine 1.06 H (units (unknown) date) (0.52-1.04) mg/dL unknown) (unknown) (no (unknown) (unknown) : 1935 (units (unknown) date) Acct:[id number] unknown) (unknown) (no (unknown) (unknown) Date of Service: (units (unknown) date) 02/09/23 unknown) (unknown) (no (unknown) (unknown) Departure (units (unkn own) date) unknown) (unknown) (no (unknown) (unknown) Discharge Plan (units (unknown) date) unknown) (unknown) (no (unknown) (unknown) Discontinued (units (u nknown) date) Medications unknown) (unknown) (no (unknown) (unknown) ED Orders (units (unkn own) date) unknown) (unknown) (no (unknown) (unknown) EKG-12 Lead Stat (units (unknown) date) unknown) (unknown) (no (unknown) (unknown) ER Physician: (units ( unknown) date) Glo Vela D.O. unknown) (unknown) (no (unknown) (unknown) EXTREMITIES: (units (u nknown) date) Normal range of unknown) motion, no clubbing or edema. 2+ pulses (unknown) (no (unknown) (unknown) Elevated TSH (units (u nknown) date) unknown) (unknown) (no (unknown) (unknown) Emergency Report (units (unknown) date) unknown) (unknown) (no (unknown) (unknown) Eos # (Auto) 100 (units (unknown) date) (0-450) /uL unknown) (unknown) (no (unknown) (unknown) Eos % (Auto) 0.9 L (units (unknown) date) (2-4) % unknown) (unknown) (no (unknown) (unknown) Estimated GFR 51 L (units (unknown) date) (>60) mL/min unknown) (unknown) (no (unknown) (unknown) Exam Narrative: (units (unknown) date) unknown) (unknown) (no (unknown) (unknown) Exam (units (unkno wn) date) unknown) (unknown) (no (unknown) (unknown) Family History (units (unknown) date) (Reviewed 02/09/23 unknown) @ 19:35 by Glo Vela DO) (unknown) (no (unknown) (unknown) Father Lung cancer (units (unknown) date) unknown) (unknown) (no (unknown) (unknown) Flonase 50 mcg (units (unknown) date) unknown) (unknown) (no (unknown) (unknown) Flonase PRN Dry (units (unknown) date) Nasal Passages unknown) 07/24/22 (unknown) (no (unknown) (unknown) GENERAL: Alert and (units (unknown) date) oriented x three, unknown) elderly female in no acute distress. (unknown) (no (unknown) (unknown) : No CVA (units (unk nown) date) tenderness unknown) (unknown) (no (unknown) (unknown) General (units (unkno wn) date) unknown) (unknown) (no (unknown) (unknown) Globulin 3.2 (units (u nknown) date) (1.7-4.1) g/dL unknown) (unknown) (no (unknown) (unknown) Glucose 167 H (units ( unknown) date) (80-110) mg/dL unknown) (unknown) (no (unknown) (unknown) H/O hysterectomy (units (unknown) date) with oophorectomy unknown) (unknown) (no (unknown) (unknown) 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 (unknown) (no (unknown) (unknown) HEENT: Head (units (un known) date) normocephalic, unknown) atraumatic, EOMI, pupils reactive, face symmetric, (unknown) (no (unknown) (unknown) HPI - Chest Pain (units (unknown) date) unknown) (unknown) (no (unknown) (unknown) HPI narrative: (units (unknown) date) unknown) (unknown) (no (unknown) (unknown) HTN (hypertension) (units (unknown) date) unknown) (unknown) (no (unknown) (unknown) Hct 41.3 (36-46) % (units (unknown) date) unknown) (unknown) (no (unknown) (unknown) Hgb 13.8 (units (unkno wn) date) (12.0-16.0) g/dL unknown) (unknown) (no (unknown) (unknown) History of Present (units (unknown) date) Illness unknown) (unknown) (no (unknown) (unknown) Home Medications (units (unknown) date) unknown) (unknown) (no (unknown) (unknown) Hx of heart artery (units (unknown) date) stent unknown) (unknown) (no (unknown) (unknown) Hyperlipidemia (units (unknown) date) unknown) (unknown) (no (unknown) (unknown) INHALATION PRN (units (unknown) date) (Reason: Shortness unknown) Of Breath Or Wheezing) (unknown) (no (unknown) (unknown) INR 1.1 (0.9-1.3) (units (unknown) date) unknown) (unknown) (no (unknown) (unknown) Initial Vital (units ( unknown) date) Signs unknown) (unknown) (no (unknown) (unknown) Initial Vital (units ( unknown) date) Signs: unknown) (unknown) (no (unknown) (unknown) [facility] (units (unknown) date) [address] [place] [address] unknown) [place] [address] (unknown) (no (unknown) (unknown) JVD. No swelling (units (unknown) date) bilateral lower unknown) extremities. (unknown) (no (unknown) (unknown) Lab Data (units (unkno wn) date) unknown) (unknown) (no (unknown) (unknown) Lab Results (units (un known) date) unknown) (unknown) (no (unknown) (unknown) Labs: (units (unkno wn) date) unknown) (unknown) (no (unknown) (unknown) Limitations: no (units (unknown) date) limitations unknown) (unknown) (no (unknown) (unknown) Lipase 45 (23-300) (units (unknown) date) U/L unknown) (unknown) (no (unknown) (unknown) Lipase Stat (units (un known) date) unknown) (unknown) (no (unknown) (unknown) Lymph # (Auto) (units (unknown) date) 1200 (6211-7719) unknown) /uL (unknown) (no (unknown) (unknown) Lymph % (Auto) 9.2 (units (unknown) date) L (25-40) % unknown) (unknown) (no (unknown) (unknown) MCH 28.7 (26-34) (units (unknown) date) PG unknown) (unknown) (no (unknown) (unknown) MCHC 33.6 (30-36) (units (unknown) date) % unknown) (unknown) (no (unknown) (unknown) MCV 85.4 (80-100) (units (unknown) date) fL unknown) (unknown) (no (unknown) (unknown) MDM - Chest Pain (units (unknown) date) unknown) (unknown) (no (unknown) (unknown) Magnesium 1.9 (units ( unknown) date) (1.6-2.3) mg/dL unknown) (unknown) (no (unknown) (unknown) Magnesium Stat (units (unknown) date) unknown) (unknown) (no (unknown) (unknown) Medical History (units (unknown) date) (Reviewed 02/09/23 unknown) @ 19:35 by Glo Vela DO) (unknown) (no (unknown) (unknown) Medication (units (unk nown) date) Instructions unknown) Recorded Confirmed (unknown) (no (unknown) (unknown) Mode of arrival: (units (unknown) date) Ambulatory unknown) (unknown) (no (unknown) (unknown) Trigg # (Auto) 700 (units (unknown) date) (0-900) /uL unknown) (unknown) (no (unknown) (unknown) Trigg % (Auto) 5.1 (units (unknown) date) (3-14) % unknown) (unknown) (no (unknown) (unknown) Mother COPD (units (un known) date) (chronic unknown) obstructive pulmonary disease) (unknown) (no (unknown) (unknown) NECK: Supple, full (units (unknown) date) range of motion unknown) (unknown) (no (unknown) (unknown) NEUROLOGICAL: (units ( unknown) date) Cranial nerves II unknown) through XII grossly intact. Moving all (unknown) (no (unknown) (unknown) Narrative (units (unkn own) date) unknown) (unknown) (no (unknown) (unknown) Neut # (Auto) (units ( unknown) date) 54285 H (2624-7576) unknown) /uL (unknown) (no (unknown) (unknown) Neut % (Auto) 84.4 (units (unknown) date) H (50-75) % unknown) (unknown) (no (unknown) (unknown) No Action (units (unkn own) date) unknown) (unknown) (no (unknown) (unknown) Ordered: (units (unkno wn) date) unknown) (unknown) (no (unknown) (unknown) Orders (units (unkno wn) date) unknown) (unknown) (no (unknown) (unknown) Oxygen Delivery (units (unknown) date) Method Room Air unknown) 02/09/23 18:15 (unknown) (no (unknown) (unknown) Oxygen Delivery (units (unknown) date) Method Room Air unknown) (unknown) (no (unknown) (unknown) PRN (Reason: Dry (units (unknown) date) Nasal Passages) unknown) (unknown) (no (unknown) (unknown) PT 12.8 H (units (unkn own) date) (10.1-12.7) SECONDS unknown) (unknown) (no (unknown) (unknown) PTT Partial (units (un known) date) Thromboplastin Jorge Luis unknown) Stat (unknown) (no (unknown) (unknown) Pain (units (unkno wn) date) unknown) (unknown) (no (unknown) (unknown) Patient Comments: (units (unknown) date) unknown) (unknown) (no (unknown) (unknown) Patient History (units (unknown) date) unknown) (unknown) (no (unknown) (unknown) Patient states (units (unknown) date) that she had unknown) stopped her prednisone on the after a recent (unknown) (no (unknown) (unknown) Patient: (units (unkno wn) date) Roselyn Mejia unknown) MR#: [id number] (unknown) (no (unknown) (unknown) Plt Count 244 (units ( unknown) date) (150-400) X103/uL unknown) (unknown) (no (unknown) (unknown) Potassium 4.0 (units ( unknown) date) (3.4-5.1) mmol/L unknown) (unknown) (no (unknown) (unknown) Prescriptions: (units (unknown) date) unknown) (unknown) (no (unknown) (unknown) Prothrombin Time (units (unknown) date) INR Stat unknown) (unknown) (no (unknown) (unknown) Pulse Oximetry 96 (units (unknown) date) 02/09/23 18:15 unknown) (unknown) (no (unknown) (unknown) Pulse Oximetry 96 (units (unknown) date) unknown) (unknown) (no (unknown) (unknown) Pulse Rate 84 (units ( unknown) date) 02/09/23 18:15 unknown) (unknown) (no (unknown) (unknown) Pulse Rate 84 (units ( unknown) date) unknown) (unknown) (no (unknown) (unknown) RBC 4.83 (4.0-5.2) (units (unknown) date) X106/uL unknown) (unknown) (no (unknown) (unknown) RDW 16.3 H (units (unk n) date) (11.6-14.8) % unknown) (unknown) (no (unknown) (unknown) RESPIRATORY: (units (u nknown) date) Breath sounds equal unknown) bilaterally, no wheezes rales or rhonchi. No (unknown) (no (unknown) (unknown) ROS Unobtainable: (units (unknown) date) All systems unknown) reviewed + are unremarkable except as noted in HPI (unknown) (no (unknown) (unknown) Referrals: (units (unk n) date) unknown) (unknown) (no (unknown) (unknown) Related Data (units (u nknown) date) unknown) (unknown) (no (unknown) (unknown) Respiratory Rate (units (unknown) date) 20 02/09/23 18:15 unknown) (unknown) (no (unknown) (unknown) Respiratory Rate (units (unknown) date) 20 unknown) (unknown) (no (unknown) (unknown) Review of Systems (units (unknown) date) unknown) (unknown) (no (unknown) (unknown) Robitussin DM To (units (unknown) date) Go 10 ml PO PRN unknown) Cough 07/24/22 (unknown) (no (unknown) (unknown) Robitussin DM To (units (unknown) date) Go unknown) (unknown) (no (unknown) (unknown) Rx Instructions: (units (unknown) date) unknown) (unknown) (no (unknown) (unknown) SKIN: Warm, dry, (units (unknown) date) no petechiae, no unknown) rashes or lesions. (unknown) (no (unknown) (unknown) She took took (units ( unknown) date) puffs on the way unknown) over here and it helped her symptoms. Patient (unknown) (no (unknown) (unknown) Signed By: (units (unk n) date) unknown) (unknown) (no (unknown) (unknown) Skin (units (unkno wn) date) unknown) (unknown) (no (unknown) (unknown) Smoking Status: (units (unknown) date) Former smoker unknown) (unknown) (no (unknown) (unknown) Social History (units (unknown) date) (Reviewed 02/09/23 unknown) @ 19:35 by Glo Vela DO) (unknown) (no (unknown) (unknown) Sodium 135 L (units (u nknown) date) (137-145) mmol/L unknown) (unknown) (no (unknown) (unknown) Source: patient (units (unknown) date) unknown) (unknown) (no (unknown) (unknown) Stated Complaint: (units (unknown) date) has COPD, sent [facility] unknown) (unknown) (no (unknown) (unknown) Status post (units (un known) date) cholecystectomy unknown) (unknown) (no (unknown) (unknown) Stop: 02/09/23 (units (unknown) date) 18:22 unknown) (unknown) (no (unknown) (unknown) Substance Use (units ( unknown) date) Type: does not use unknown) (unknown) (no (unknown) (unknown) Sulfa (Sulfonamide (units (unknown) date) Allergy unknown) Intermediate rash Verified 02/09/23 18:21 (unknown) (no (unknown) (unknown) Surgical History (units (unknown) date) (Reviewed 02/09/23 unknown) @ 19:35 by Glo Vela DO) (unknown) (no (unknown) (unknown) TAKE 1 CAPSULE BY (units (unknown) date) MOUTH ONCE DAILY unknown) (unknown) (no (unknown) (unknown) TAKE 1 TABLET BY (units (unknown) date) MOUTH ONCE DAILY IN unknown) THE MORNING (unknown) (no (unknown) (unknown) TAKE 1 TABLET BY (units (unknown) date) MOUTH ONCE DAILY unknown) (unknown) (no (unknown) (unknown) Temperature 98.1 F (units (unknown) date) 02/09/23 18:15 unknown) (unknown) (no (unknown) (unknown) Temperature 98.1 F (units (unknown) date) unknown) (unknown) (no (unknown) (unknown) They recommended (units (unknown) date) she come for unknown) evaluation but also told her to try her inhaler. (unknown) (no (unknown) (unknown) This is an (units (unkn own) date) 87-year-old with unknown) history of COPD on 2 L nasal cannula 24 hours a day, (unknown) (no (unknown) (unknown) Time Seen by (units (u nknown) date) Provider: 02/09/23 unknown) 19:10 (unknown) (no (unknown) (unknown) Total Bilirubin (units (unknown) date) 2.7 H (0.2-1.3) unknown) mg/dL (unknown) (no (unknown) (unknown) Total Creatine (units (unknown) date) Kinase 30 (30-135) unknown) U/L (unknown) (no (unknown) (unknown) Total Protein 7.3 (units (unknown) date) (6.3-8.2) g/dL unknown) (unknown) (no (unknown) (unknown) Troponin + CK (units ( unknown) date) Cardiac Panel Stat unknown) (unknown) (no (unknown) (unknown) Troponin I 0.017 (units (unknown) date) (0.01-0.034) ng/mL unknown) (unknown) (no (unknown) (unknown) Unstable angina (units (unknown) date) unknown) (unknown) (no (unknown) (unknown) Valvular heart (units (unknown) date) disease unknown) (unknown) (no (unknown) (unknown) Vital Signs - 8 hr (units (unknown) date) unknown) (unknown) (no (unknown) (unknown) Vital Signs (units (un known) date) unknown) (unknown) (no (unknown) (unknown) Vital signs: (units (u nknown) date) unknown) (unknown) (no (unknown) (unknown) WBC 12.8 H (units (unk nown) date) (4.5-11.0) X103/uL unknown) (unknown) (no (unknown) (unknown) Katy Salazar, (units (unknown) date) 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 [Primary Care unknown) Provider] (unknown) (no (unknown) (unknown) XR chest 1V Stat (units (unknown) date) unknown) (unknown) (no (unknown) (unknown) [Embedded Image (units (unknown) date) Not Available] unknown) (unknown) (no (unknown) (unknown) [From Bactrim] (units (unknown) date) unknown) (unknown) (no (unknown) (unknown) [From Trilipix] (units (unknown) date) Upset unknown) (unknown) (no (unknown) (unknown) acarbose Allergy (units (unknown) date) Intermediate unknown) Abdominal Verified 02/09/23 18:21 (unknown) (no (unknown) (unknown) albuterol 90 (units (u nknown) date) mcg/actuation unknown) Aerosol (unknown) (no (unknown) (unknown) albuterol 90 (units (u nknown) date) mcg/actuation unknown) aerosol 90 mcg inhalation PRN Shortness Of 07/24/22 (unknown) (no (unknown) (unknown) alcohol intake (units (unknown) date) frequency: 0-2 unknown) drinks per day (unknown) (no (unknown) (unknown) alcohol intake: (units (unknown) date) never unknown) (unknown) (no (unknown) (unknown) alcohol, no (units (un known) date) illicit. 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 unknown) She states she went to the walk-in clinic (unknown) (no (unknown) (unknown) aspirin 81 MG (units ( unknown) date) tablet,delayed unknown) release (DR/EC) (unknown) (no (unknown) (unknown) aspirin 81 mg (units ( unknown) date) tablet,delayed 81 unknown) mg PO QDAY ##0 09/14/17 07/24/22 (unknown) (no (unknown) (unknown) atorvastatin 20 mg (units (unknown) date) tablet (Lipitor) 40 unknown) mg PO QPM 07/08/22 07/24/22 (unknown) (no (unknown) (unknown) atorvastatin (units (u nknown) date) [Lipitor] 20 mg unknown) tablet (unknown) (no (unknown) (unknown) because she could (units (unknown) date) not get a hold of unknown) her primary care at the manager service desk referral. (unknown) (no (unknown) (unknown) bilaterally lower (units (unknown) date) extremities. unknown) Neurovascularly intact (unknown) (no (unknown) (unknown) budesonide [From (units (unknown) date) Symbicort] Allergy unknown) Mild Anxiety Verified 02/09/23 18:21 (unknown) (no (unknown) (unknown) capsule,extended (units (unknown) date) release 24 hr unknown) (unknown) (no (unknown) (unknown) carvedilol Allergy (units (unknown) date) Mild Rash Verified unknown) 02/09/23 18:21 (unknown) (no (unknown) (unknown) chlorthalidone (units (unknown) date) Allergy unknown) Intermediate Redness of Verified 02/09/23 18:21 (unknown) (no (unknown) (unknown) choline (units (unkno wn) date) fenofibrate Allergy unknown) Mild Gastrointestinal Verified 02/09/23 18:21 (unknown) (no (unknown) (unknown) clopidogrel 75 mg (units (unknown) date) tablet 75 mg PO QAM unknown) 07/24/22 07/24/22 (unknown) (no (unknown) (unknown) clopidogrel 75 mg (units (unknown) date) tablet unknown) (unknown) (no (unknown) (unknown) cyclobenzaprine 10 (units (unknown) date) mg Tablet unknown) (unknown) (no (unknown) (unknown) cyclobenzaprine 10 (units (unknown) date) mg tablet 10 mg PO unknown) TID PRN Muscle Spasm 07/24/22 07/24/22 (unknown) (no (unknown) (unknown) denies any fevers, (units (unknown) date) no chills, no cold, unknown) cough or congestion she is had some more (unknown) (no (unknown) (unknown) diaphoretic with (units (unknown) date) it. No nausea no unknown) vomiting. No abdominal back or flank pain, (unknown) (no (unknown) (unknown) diltiazem HCl 120 (units (unknown) date) mg 120 mg PO QAM unknown) 07/08/22 07/24/22 (unknown) (no (unknown) (unknown) diltiazem HCl (units ( unknown) date) [Cartia XT] 120 mg unknown) capsule,extended release 24hr (unknown) (no (unknown) (unknown) does use Advair (units (unknown) date) twice daily, she unknown) states she typically uses her albuterol couple (unknown) (no (unknown) (unknown) doxazosin [From (units (unknown) date) Cardura] Allergy unknown) Intermediate Rash Verified 02/09/23 18:21 (unknown) (no (unknown) (unknown) doxycycline (units (un known) date) Allergy unknown) Intermediate Rash Verified 02/09/23 18:21 (unknown) (no (unknown) (unknown) extremities (units (un known) date) unknown) (unknown) (no (unknown) (unknown) flare. She is had (units (unknown) date) a little bit unknown) increased shortness of breath and heaviness in (unknown) (no (unknown) (unknown) formoterol [From (units (unknown) date) Symbicort] Allergy unknown) Mild Anxiety Verified 02/09/23 18:21 (unknown) (no (unknown) (unknown) frequent belching. (units (unknown) date) She states it is unknown) always substernal not radiating it is worse (unknown) (no (unknown) (unknown) frequently but (units (unknown) date) states no dysuria, unknown) urgency or other changes. Patient has not had (unknown) (no (unknown) (unknown) furosemide 40 mg (units (unknown) date) tablet 40 mg PO QAM unknown) 07/08/22 07/08/22 (unknown) (no (unknown) (unknown) furosemide 40 mg (units (unknown) date) tablet unknown) (unknown) (no (unknown) (unknown) gemfibrozil (units (un known) date) Allergy unknown) Intermediate Rash Verified 02/09/23 18:21 (unknown) (no (unknown) (unknown) guarding or (units (un known) date) rebound, rigidity, unknown) no mass (unknown) (no (unknown) (unknown) her substernal (units (unknown) date) chest for the past unknown) 1-2 days and while walking at [employer] the (unknown) (no (unknown) (unknown) household members: (units (unknown) date) family and children unknown) (unknown) (no (unknown) (unknown) inhaler Breath (units (unknown) date) unknown) (unknown) (no (unknown) (unknown) ipratropium 0.5 (units (unknown) date) mg-albuterol 3 mg unknown) ml inhalation PRN Shortness Of 07/24/22 (unknown) (no (unknown) (unknown) ipratropium-albute (units (unknown) date) rol 0.5 mg-3 mg(2.5 unknown) mg base)/3 mL solution for nebulization (unknown) (no (unknown) (unknown) isosorbide (units (unk nown) date) mononitrate 120 mg unknown) 120 mg PO QAM 07/08/22 07/24/22 (unknown) (no (unknown) (unknown) isosorbide (units (unk nown) date) mononitrate 120 mg unknown) tablet extended release 24 hr (unknown) (no (unknown) (unknown) levofloxacin (units (u nknown) date) Allergy unknown) Intermediate Rash Verified 02/09/23 18:21 (unknown) (no (unknown) (unknown) levothyroxine 88 (units (unknown) date) mcg tablet 88 mcg unknown) PO QAM 07/08/22 07/24/22 (unknown) (no (unknown) (unknown) levothyroxine 88 (units (unknown) date) mcg tablet unknown) (unknown) (no (unknown) (unknown) lisinopril 40 mg (units (unknown) date) tablet 20 mg PO QAM unknown) 07/08/22 07/24/22 (unknown) (no (unknown) (unknown) lisinopril 40 mg (units (unknown) date) tablet unknown) (unknown) (no (unknown) (unknown) losartan Allergy (units (unknown) date) Intermediate Rash unknown) Verified 02/09/23 18:21 (unknown) (no (unknown) (unknown) metoprolol AdvReac (units (unknown) date) Intermediate unknown) Verified 02/09/23 18:21 (unknown) (no (unknown) (unknown) metoprolol (units (unk nown) date) succinate 25 mg 25 unknown) mg PO DAILY 07/24/22 07/24/22 (unknown) (no (unknown) (unknown) metoprolol (units (unk nown) date) succinate 25 mg unknown) tablet extended release 24 hr (unknown) (no (unknown) (unknown) moist mucous (units (u nknown) date) membranes unknown) (unknown) (no (unknown) (unknown) montelukast [From (units (unknown) date) Singulair] Allergy unknown) Intermediate Difficulty Verified 02/09/23 (unknown) (no (unknown) (unknown) morning (units (unkno wn) date) unknown) (unknown) (no (unknown) (unknown) multiple (units (unkno wn) date) allergies. She unknown) smoked for about 17 years quitting in the 70s. No (unknown) (no (unknown) (unknown) multivitamin 1 tab (units (unknown) date) PO DAILY 09/10/18 unknown) 07/24/22 (unknown) (no (unknown) (unknown) multivitamin (units (u nknown) date) Tablet,Chewable unknown) (unknown) (no (unknown) (unknown) nifedipine Allergy (units (unknown) date) Intermediate Chills unknown) Verified 02/09/23 18:21 (unknown) (no (unknown) (unknown) nitroglycerin 0.4 (units (unknown) date) mg sublingual 0.4 unknown) mg sublingual Q5-15M PRN Chest 09/10/18 (unknown) (no (unknown) (unknown) nitroglycerin (units ( unknown) date) [Nitrostat] 0.4 mg unknown) Tablet, Sublingual (unknown) (no (unknown) (unknown) no issues with (units (unknown) date) bowel movements. unknown) She is on water pills so she urinates (unknown) (no (unknown) (unknown) omega (units (unkno wn) date) 6-aro-edd-fish oil unknown) 1,000 mg 1,000 mg PO DAILY 09/10/18 07/24/22 (unknown) (no (unknown) (unknown) omega (units (unkno wn) date) 0-lvm-dub-fish oil unknown) [Fish Oil] 1,000 mg (120 mg-180 mg) Capsule (unknown) (no (unknown) (unknown) other day while (units (unknown) date) shopping felt a unknown) little bit more heaviness. 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 unknown) d/c 07/14/22 (unknown) (no (unknown) (unknown) release (units (unkno wn) date) unknown) (unknown) (no (unknown) (unknown) she forgets to use (units (unknown) date) her inhaler unknown) frequently and has not been using that. She (unknown) (no (unknown) (unknown) soln (units (unkno wn) date) unknown) (unknown) (no (unknown) (unknown) statin medication (units (unknown) date) for hypothyroidism, unknown) blood pressure. Patient states she has (unknown) (no (unknown) (unknown) sulfamethoxazole (units (unknown) date) Allergy unknown) Intermediate Rash Verified 02/09/23 18:21 (unknown) (no (unknown) (unknown) tablet (Nitrostat) (units (unknown) date) Pain unknown) (unknown) (no (unknown) (unknown) tablet,extended (units (unknown) date) release 24 hr unknown) (unknown) (no (unknown) (unknown) tachypnea. Speaks (units (unknown) date) in full sentences. unknown) Easy work of breathing. (unknown) (no (unknown) (unknown) times a week but (units (unknown) date) typically also unknown) forgets to use it. She is on aspirin, Plavix, (unknown) (no (unknown) (unknown) tobacco type: (units ( unknown) date) cigarettes unknown) (unknown) (no (unknown) (unknown) torsemide 20 mg (units (unknown) date) Tablet unknown) (unknown) (no (unknown) (unknown) torsemide 20 mg (units (unknown) date) tablet 20 mg PO unknown) DAILY 07/24/22 07/24/22 (unknown) (no (unknown) (unknown) trimethoprim [From (units (unknown) date) Bactrim] Allergy unknown) Intermediate Rash Verified 02/09/23 18:21 (unknown) (no (unknown) (unknown) vitamin E 268 mg (units (unknown) date) (400 unit) capsule unknown) 400 unit PO DAILY 09/10/18 07/24/22 (unknown) (no (unknown) (unknown) vitamin E 400 unit (units (unknown) date) Capsule unknown) (unknown) (no (unknown) (unknown) weekly. Her (units (un known) date) primary care is unknown) Katy Salazar. She has not been following (unknown) (no (unknown) (unknown) with exertion she (units (unknown) date) has a little bit unknown) more shortness of breath. She does not get (unknown) (no (unknown) (unknown) with pulmonology (units (unknown) date) regularly but has unknown) been seen, she sees cardiology. Result panel [id number] (unknown) (no date) (unknown) (unknown) 2300 pg/ml (unkn own) (unknown) (no date) (unknown) (unknown) 2300 pg/ml (unkn own) Result panel [id number] (unknown) (no (unknown) (unknown) (no value) (units (unk nown) date) unknown) (unknown) (no (unknown) (unknown) (120 mg-180 mg) (units (unknown) date) capsule (Fish Oil) unknown) (unknown) (no (unknown) (unknown) (2.5 mg base)/3 mL (units (unknown) date) nebulization Breath unknown) Or Wheezing (unknown) (no (unknown) (unknown) (Cartia XT) (units (un known) date) unknown) (unknown) (no (unknown) (unknown) 0.4 mg SUBLINGUAL (units (unknown) date) Q5-15M PRN (Reason: unknown) Chest Pain) (unknown) (no (unknown) (unknown) [id number] (units (unkno wn) date) unknown) (unknown) (no (unknown) (unknown) 02/09/23 02/09/23 (units (unknown) date) 02/09/23 unknown) Range/Units (unknown) (no (unknown) (unknown) 02/09/23 18:21 (units (unknown) date) unknown) (unknown) (no (unknown) (unknown) 02/09/23 18:30 (units (unknown) date) unknown) (unknown) (no (unknown) (unknown) 02/09/23 20:30 (units (unknown) date) unknown) (unknown) (no (unknown) (unknown) 02/09/23 (units (unkno wn) date) Range/Units unknown) (unknown) (no (unknown) (unknown) 02/09/23 (units (unkno wn) date) unknown) (unknown) (no (unknown) (unknown) 07/24/22 (units (unkno wn) date) unknown) (unknown) (no (unknown) (unknown) 1 tab PO DAILY (units (unknown) date) unknown) (unknown) (no (unknown) (unknown) 1,000 mg PO DAILY (units (unknown) date) unknown) (unknown) (no (unknown) (unknown) 1. No acute (units (un known) date) cardiopulmonary unknown) abnormality. (unknown) (no (unknown) (unknown) 10 mg PO TID PRN (units (unknown) date) (Reason: Muscle unknown) Spasm) (unknown) (no (unknown) (unknown) 10 ml PO PRN (units (u nknown) date) (Reason: Cough) unknown) (unknown) (no (unknown) (unknown) 10-100mg/5ml (units (u nknown) date) liquid. take 10ml unknown) by mouth every 4 hrs as needed for cough (unknown) (no (unknown) (unknown) 06 of February she (units (unknown) date) is not wheezy unknown) initially on exam but had used 2 puffs of her (unknown) (no (unknown) (unknown) 120 mg PO QAM (units ( unknown) date) unknown) (unknown) (no (unknown) (unknown) [address] (units (unknown) date) unknown) (unknown) (no (unknown) (unknown) 18:15 02/09/23 (units (unknown) date) unknown) (unknown) (no (unknown) (unknown) 18:21 (units (unkno wn) date) unknown) (unknown) (no (unknown) (unknown) 18:30 18:30 18:30 (units (unknown) date) unknown) (unknown) (no (unknown) (unknown) 18:30 (units (unkno wn) date) unknown) (unknown) (no (unknown) (unknown) 19:18 (units (unkno wn) date) unknown) (unknown) (no (unknown) (unknown) 2. Stable (units (unkn own) date) cardiomegaly.? unknown) (unknown) (no (unknown) (unknown) 20 mg PO DAILY (units (unknown) date) unknown) (unknown) (no (unknown) (unknown) 20 mg PO QAM (units (u nknown) date) unknown) (unknown) (no (unknown) (unknown) 25 mg PO DAILY (units (unknown) date) unknown) (unknown) (no (unknown) (unknown) 40 mg PO QAM (units (u nknown) date) unknown) (unknown) (no (unknown) (unknown) 40 mg PO QPM (units (u nknown) date) unknown) (unknown) (no (unknown) (unknown) 400 unit PO DAILY (units (unknown) date) unknown) (unknown) (no (unknown) (unknown) 75 mg PO QAM (units (u nknown) date) unknown) (unknown) (no (unknown) (unknown) 81 mg PO QDAY Qty: (units (unknown) date) 0 unknown) (unknown) (no (unknown) (unknown) 88 mcg PO QAM (units ( unknown) date) unknown) (unknown) (no (unknown) (unknown) 90 mcg INHALATION (units (unknown) date) PRN (Reason: unknown) Shortness Of Breath) (unknown) (no (unknown) (unknown) ? (units (unkno wn) date) unknown) (unknown) (no (unknown) (unknown) ABDOMEN: Soft, (units (unknown) date) nontender. unknown) Normoactive bowel sounds all 4 quadrants. No (unknown) (no (unknown) (unknown) ALT (<35) IU/L (units (unknown) date) unknown) (unknown) (no (unknown) (unknown) ALT 22 (<35) IU/L (units (unknown) date) unknown) (unknown) (no (unknown) (unknown) APTT (26-36) (units (u nknown) date) SECONDS unknown) (unknown) (no (unknown) (unknown) APTT 30 (26-36) (units (unknown) date) SECONDS unknown) (unknown) (no (unknown) (unknown) AST (14-36) IU/L (units (unknown) date) unknown) (unknown) (no (unknown) (unknown) AST 28 (14-36) (units (unknown) date) IU/L unknown) (unknown) (no (unknown) (unknown) Accession Number: (units (unknown) date) [id number] ?? unknown) (unknown) (no (unknown) (unknown) Acct:[id number] (units (unknown) date) unknown) (unknown) (no (unknown) (unknown) Age/Sex: 87 / F (units (unknown) date) unknown) (unknown) (no (unknown) (unknown) Albumin (3.5-5.0) (units (unknown) date) g/dL unknown) (unknown) (no (unknown) (unknown) Albumin 4.1 (units (un known) date) (3.5-5.0) g/dL unknown) (unknown) (no (unknown) (unknown) Albumin/Globulin (units (unknown) date) Ratio (1.0-2.8) unknown) (unknown) (no (unknown) (unknown) Albumin/Globulin (units (unknown) date) Ratio 1.3 (1.0-2.8) unknown) (unknown) (no (unknown) (unknown) Alkaline (units (unkno wn) date) Phosphatase unknown) (38-126) U/L (unknown) (no (unknown) (unknown) Alkaline (units (unkno wn) date) Phosphatase 76 unknown) (38-126) U/L (unknown) (no (unknown) (unknown) Allergies (units (unkn own) date) unknown) (unknown) (no (unknown) (unknown) Allergy/AdvReac (units (unknown) date) Type Severity unknown) Reaction Status Date / Time (unknown) (no (unknown) (unknown) [place], [place] (units ( unknown) date) [id number] unknown) (unknown) (no (unknown) (unknown) 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 on 02/09/2023 at 19:58?? (unknown) (no (unknown) (unknown) Aspirin (Aspirin (units (unknown) date) 81 Mg Chew Tab) 324 unknown) mg PO NOW ONE (unknown) (no (unknown) (unknown) Attestation: I (units (unknown) date) personally reviewed unknown) and interpreted this ECG as follows: (unknown) (no (unknown) (unknown) BNP [NT-proBNP (units (unknown) date) (BNP-Adult 18+)] unknown) Stat (unknown) (no (unknown) (unknown) BUN (7-17) mg/dL (units (unknown) date) unknown) (unknown) (no (unknown) (unknown) BUN 26 H (7-17) (units (unknown) date) mg/dL unknown) (unknown) (no (unknown) (unknown) BUN/Creatinine (units (unknown) date) Ratio (6-22) unknown) (unknown) (no (unknown) (unknown) BUN/Creatinine (units (unknown) date) Ratio 24.5 H (6-22) unknown) (unknown) (no (unknown) (unknown) Baso # (Auto) (units ( unknown) date) (0-100) /uL unknown) (unknown) (no (unknown) (unknown) Baso # (Auto) 100 (units (unknown) date) (0-100) /uL unknown) (unknown) (no (unknown) (unknown) Baso % (Auto) (units ( unknown) date) (0-2) % unknown) (unknown) (no (unknown) (unknown) Baso % (Auto) 0.4 (units (unknown) date) (0-2) % unknown) (unknown) (no (unknown) (unknown) 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 No unknown) suspicious bony lesions.? Overlying soft tissues (unknown) (no (unknown) (unknown) Breathing (units (unkn own) date) unknown) (unknown) (no (unknown) (unknown) CABG, CHF, (units (unk nown) date) hypertension, unknown) dyslipidemia anticoagulated on aspirin and Plavix. (unknown) (no (unknown) (unknown) 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) unknown) (unknown) (no (unknown) (unknown) CARDIOVASCULAR: (units (unknown) date) Regular rate and unknown) rhythm without murmurs, rubs or gallops. No (unknown) (no (unknown) (unknown) CK-MB (CK-2) Rel (units (unknown) date) Index TNP unknown) (unknown) (no (unknown) (unknown) CK-MB (CK-2) Rel (units (unknown) date) Index unknown) (unknown) (no (unknown) (unknown) CK-MB (CK-2) TNP (units (unknown) date) unknown) (unknown) (no (unknown) (unknown) CK-MB (CK-2) (units (u nknown) date) unknown) (unknown) (no (unknown) (unknown) COMPARISON:? (units (u nknown) date) [facility], unknown) CR, XR CHEST 1V, 12/06/2022, 13:21. 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 unknown) BNP is elevated in the 2000 range but is (unknown) (no (unknown) (unknown) Chest x-ray: (units (u nknown) date) unknown) (unknown) (no (unknown) (unknown) Chief Complaint: (units (unknown) date) Chest Pain unknown) (unknown) (no (unknown) (unknown) Chloride (98-107) (units (unknown) date) mmol/L unknown) (unknown) (no (unknown) (unknown) Chloride 95 L (units ( unknown) date) (98-107) mmol/L unknown) (unknown) (no (unknown) (unknown) Complete Blood (units (unknown) date) Count AUTO DIFF unknown) Stat (unknown) (no (unknown) (unknown) Comprehensive (units ( unknown) date) Metabolic Panel unknown) Stat (unknown) (no (unknown) (unknown) Course (units (unkno wn) date) unknown) (unknown) (no (unknown) (unknown) Creatinine (units (unk nown) date) (0.52-1.04) mg/dL unknown) (unknown) (no (unknown) (unknown) Creatinine 1.06 H (units (unknown) date) (0.52-1.04) mg/dL unknown) (unknown) (no (unknown) (unknown) : 1935 (units (unknown) date) Acct:[id number] unknown) (unknown) (no (unknown) (unknown) : 1935 (units (unknown) date) unknown) (unknown) (no (unknown) (unknown) Date of Service: (units (unknown) date) 02/09/23 unknown) (unknown) (no (unknown) (unknown) Departure (units (unkn own) date) unknown) (unknown) (no (unknown) (unknown) Dictated by: (units (u nknown) date) ramona Contreras M.D. on 02/09/2023 at 19:57 ? ? (unknown) (no (unknown) (unknown) Discharge Plan (units (unknown) date) unknown) (unknown) (no (unknown) (unknown) Discontinued (units (u nknown) date) Medications unknown) (unknown) (no (unknown) (unknown) Discussed with (units (unknown) date) patient she does unknown) have cardiac risk factors but I suspect her (unknown) (no (unknown) (unknown) Documented By: KLS (units (unknown) date) unknown) (unknown) (no (unknown) (unknown) ECG Data (units (unkno wn) date) unknown) (unknown) (no (unknown) (unknown) ED Orders (units (unkn own) date) unknown) (unknown) (no (unknown) (unknown) EKG-12 Lead Stat (units (unknown) date) unknown) (unknown) (no (unknown) (unknown) ER Physician: (units ( unknown) date) Glo Vela D.O. unknown) (unknown) (no (unknown) (unknown) EXTREMITIES: (units (u nknown) date) Normal range of unknown) motion, no clubbing or edema. 2+ pulses (unknown) (no (unknown) (unknown) Elevated TSH (units (u nknown) date) unknown) (unknown) (no (unknown) (unknown) Emergency Report (units (unknown) date) unknown) (unknown) (no (unknown) (unknown) Eos # (Auto) (units (u nknown) date) (0-450) /uL unknown) (unknown) (no (unknown) (unknown) Eos # (Auto) 100 (units (unknown) date) (0-450) /uL unknown) (unknown) (no (unknown) (unknown) Eos % (Auto) (2-4) (units (unknown) date) % unknown) (unknown) (no (unknown) (unknown) Eos % (Auto) 0.9 L (units (unknown) date) (2-4) % unknown) (unknown) (no (unknown) (unknown) Estimated GFR (units ( unknown) date) (>60) mL/min unknown) (unknown) (no (unknown) (unknown) Estimated GFR 51 L (units (unknown) date) (>60) mL/min unknown) (unknown) (no (unknown) (unknown) Exam Narrative: (units (unknown) date) unknown) (unknown) (no (unknown) (unknown) Exam (units (unkno wn) date) unknown) (unknown) (no (unknown) (unknown) FINDINGS:? (units (unk nown) date) unknown) (unknown) (no (unknown) (unknown) Family History (units (unknown) date) (Reviewed 02/09/23 unknown) @ 19:35 by Glo Vela DO) (unknown) (no (unknown) (unknown) Father Lung cancer (units (unknown) date) unknown) (unknown) (no (unknown) (unknown) Flonase 50 mcg (units (unknown) date) unknown) (unknown) (no (unknown) (unknown) Flonase PRN Dry (units (unknown) date) Nasal Passages unknown) 07/24/22 (unknown) (no (unknown) (unknown) GENERAL: Alert and (units (unknown) date) oriented x three, unknown) elderly female in no acute distress. (unknown) (no (unknown) (unknown) : No CVA (units (unk nown) date) tenderness unknown) (unknown) (no (unknown) (unknown) General (units (unkno wn) date) unknown) (unknown) (no (unknown) (unknown) Globulin (1.7-4.1) (units (unknown) date) g/dL unknown) (unknown) (no (unknown) (unknown) Globulin 3.2 (units (u nknown) date) (1.7-4.1) g/dL unknown) (unknown) (no (unknown) (unknown) Glucose (80-110) (units (unknown) date) mg/dL unknown) (unknown) (no (unknown) (unknown) Glucose 167 H (units ( unknown) date) (80-110) mg/dL unknown) (unknown) (no (unknown) (unknown) H/O hysterectomy (units (unknown) date) with oophorectomy unknown) (unknown) (no (unknown) (unknown) 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 (unknown) (no (unknown) (unknown) HEENT: Head (units (un known) date) normocephalic, unknown) atraumatic, EOMI, pupils reactive, face symmetric, (unknown) (no (unknown) (unknown) HPI - Chest Pain (units (unknown) date) unknown) (unknown) (no (unknown) (unknown) HPI narrative: (units (unknown) date) unknown) (unknown) (no (unknown) (unknown) HTN (hypertension) (units (unknown) date) unknown) (unknown) (no (unknown) (unknown) Hct (36-46) % (units ( unknown) date) unknown) (unknown) (no (unknown) (unknown) Hct 41.3 (36-46) % (units (unknown) date) unknown) (unknown) (no (unknown) (unknown) Hgb (12.0-16.0) (units (unknown) date) g/dL unknown) (unknown) (no (unknown) (unknown) Hgb 13.8 (units (unkno wn) date) (12.0-16.0) g/dL unknown) (unknown) (no (unknown) (unknown) History of Present (units (unknown) date) Illness unknown) (unknown) (no (unknown) (unknown) Home Medications (units (unknown) date) unknown) (unknown) (no (unknown) (unknown) Hx of heart artery (units (unknown) date) stent unknown) (unknown) (no (unknown) (unknown) Hyperlipidemia (units (unknown) date) unknown) (unknown) (no (unknown) (unknown) IMPRESSION:? (units (u nknown) date) unknown) (unknown) (no (unknown) (unknown) INDICATIONS:? (units ( unknown) date) chest pain unknown) (unknown) (no (unknown) (unknown) INHALATION PRN (units (unknown) date) (Reason: Shortness unknown) Of Breath Or Wheezing) (unknown) (no (unknown) (unknown) INR (0.9-1.3) (units ( unknown) date) unknown) (unknown) (no (unknown) (unknown) INR 1.1 (0.9-1.3) (units (unknown) date) unknown) (unknown) (no (unknown) (unknown) Imaging Data (units (u nknown) date) unknown) (unknown) (no (unknown) (unknown) Initial Vital (units ( unknown) date) Signs unknown) (unknown) (no (unknown) (unknown) Initial Vital (units ( unknown) date) Signs: unknown) (unknown) (no (unknown) (unknown) Interpretation: (units (unknown) date) unknown) (unknown) (no (unknown) (unknown) [facility] (units (unknown) date) [address] unknown) [place] [address] (unknown) (no (unknown) (unknown) [facility] (units (unknown) date) unknown) (unknown) (no (unknown) (unknown) JVD. No swelling (units (unknown) date) bilateral lower unknown) extremities. (unknown) (no (unknown) (unknown) Lab Data (units (unkno wn) date) unknown) (unknown) (no (unknown) (unknown) Lab Results (units (un known) date) unknown) (unknown) (no (unknown) (unknown) Labs: (units (unkno wn) date) unknown) (unknown) (no (unknown) (unknown) Last Admin: (units (un known) date) 02/09/23 19:28 unknown) Dose: Not Given (unknown) (no (unknown) (unknown) Limitations: no (units (unknown) date) limitations unknown) (unknown) (no (unknown) (unknown) Lipase (23-300) (units (unknown) date) U/L unknown) (unknown) (no (unknown) (unknown) Lipase 45 (23-300) (units (unknown) date) U/L unknown) (unknown) (no (unknown) (unknown) Lipase Stat (units (un known) date) unknown) (unknown) (no (unknown) (unknown) Loc: ED (units (unkno wn) date) unknown) (unknown) (no (unknown) (unknown) Lungs and pleura:? (units (unknown) date) Lungs are clear.? unknown) No pleural effusions or pneumothorax.? (unknown) (no (unknown) (unknown) Lymph # (Auto) (units (unknown) date) (0037-9144) /uL unknown) (unknown) (no (unknown) (unknown) Lymph # (Auto) (units (unknown) date) 1200 (2760-5034) unknown) /uL (unknown) (no (unknown) (unknown) Lymph % (Auto) (units (unknown) date) (25-40) % unknown) (unknown) (no (unknown) (unknown) Lymph % (Auto) 9.2 (units (unknown) date) L (25-40) % unknown) (unknown) (no (unknown) (unknown) MCH (26-34) PG (units (unknown) date) unknown) (unknown) (no (unknown) (unknown) MCH 28.7 (26-34) (units (unknown) date) PG unknown) (unknown) (no (unknown) (unknown) MCHC (30-36) % (units (unknown) date) unknown) (unknown) (no (unknown) (unknown) MCHC 33.6 (30-36) (units (unknown) date) % unknown) (unknown) (no (unknown) (unknown) MCV (80-100) fL (units (unknown) date) unknown) (unknown) (no (unknown) (unknown) MCV 85.4 (80-100) (units (unknown) date) fL unknown) (unknown) (no (unknown) (unknown) MDM - Chest Pain (units (unknown) date) unknown) (unknown) (no (unknown) (unknown) MDM Narrative (units ( unknown) date) unknown) (unknown) (no (unknown) (unknown) MR#: [id number] (units (unknown) date) unknown) (unknown) (no (unknown) (unknown) Magnesium (units (unkn own) date) (1.6-2.3) mg/dL unknown) (unknown) (no (unknown) (unknown) Magnesium 1.9 (units ( unknown) date) (1.6-2.3) mg/dL unknown) (unknown) (no (unknown) (unknown) Magnesium Stat (units (unknown) date) unknown) (unknown) (no (unknown) (unknown) Mediastinum:? (units (u nknown) date) Normal mediastinal unknown) contours.? The aorta is tortuous.? The heart is (unknown) (no (unknown) (unknown) Medical History (units (unknown) date) (Reviewed 02/09/23 unknown) @ 19:35 by Glo Vela DO) (unknown) (no (unknown) (unknown) Medical decision (units (unknown) date) making narrative: unknown) (unknown) (no (unknown) (unknown) Medication (units (unk nown) date) Instructions unknown) Recorded Confirmed (unknown) (no (unknown) (unknown) Mode of arrival: (units (unknown) date) Ambulatory unknown) (unknown) (no (unknown) (unknown) Trigg # (Auto) (units ( unknown) date) (0-900) /uL unknown) (unknown) (no (unknown) (unknown) Trigg # (Auto) 700 (units (unknown) date) (0-900) /uL unknown) (unknown) (no (unknown) (unknown) Trigg % (Auto) (units ( unknown) date) (3-14) % unknown) (unknown) (no (unknown) (unknown) Trigg % (Auto) 5.1 (units (unknown) date) (3-14) % unknown) (unknown) (no (unknown) (unknown) Mother COPD (units (un known) date) (chronic unknown) obstructive pulmonary disease) (unknown) (no (unknown) (unknown) NECK: Supple, full (units (unknown) date) range of motion unknown) (unknown) (no (unknown) (unknown) NEUROLOGICAL: (units ( unknown) date) Cranial nerves II unknown) through XII grossly intact. Moving all (unknown) (no (unknown) (unknown) NT-Pro-B Natriuret (units (unknown) date) Pep (<450) pg/mL unknown) (unknown) (no (unknown) (unknown) NT-Pro-B Natriuret (units (unknown) date) Pep 2300 H (<450) unknown) pg/mL (unknown) (no (unknown) (unknown) Narrative (units (unkn own) date) unknown) (unknown) (no (unknown) (unknown) Neut # (Auto) (units ( unknown) date) (2273-6924) /uL unknown) (unknown) (no (unknown) (unknown) Neut # (Auto) (units ( unknown) date) 31953 H (9044-2889) unknown) /uL (unknown) (no (unknown) (unknown) Neut % (Auto) (units ( unknown) date) (50-75) % unknown) (unknown) (no (unknown) (unknown) Neut % (Auto) 84.4 (units (unknown) date) H (50-75) % unknown) (unknown) (no (unknown) (unknown) No Action (units (unkn own) date) unknown) (unknown) (no (unknown) (unknown) Ordered: (units (unkno wn) date) unknown) (unknown) (no (unknown) (unknown) Ordering Provider: (units (unknown) date) Glo Vela D.O. unknown) (unknown) (no (unknown) (unknown) Orders (units (unkno wn) date) unknown) (unknown) (no (unknown) (unknown) Oxygen Delivery (units (unknown) date) Method Room Air unknown) 02/09/23 18:15 (unknown) (no (unknown) (unknown) Oxygen Delivery (units (unknown) date) Method Room Air unknown) Nasal Cannula (unknown) (no (unknown) (unknown) Oxygen Flow Rate 2 (units (unknown) date) unknown) (unknown) (no (unknown) (unknown) PRN (Reason: Dry (units (unknown) date) Nasal Passages) unknown) (unknown) (no (unknown) (unknown) PROCEDURE:? XR (units (unknown) date) CHEST 1V unknown) (unknown) (no (unknown) (unknown) PT (10.1-12.7) (units (unknown) date) SECONDS unknown) (unknown) (no (unknown) (unknown) PT 12.8 H (units (unkn own) date) (10.1-12.7) SECONDS unknown) (unknown) (no (unknown) (unknown) PTT Partial (units (un known) date) Thromboplastin Jorge Luis unknown) Stat (unknown) (no (unknown) (unknown) Pain (units (unkno wn) date) unknown) (unknown) (no (unknown) (unknown) Patient Comments: (units (unknown) date) unknown) (unknown) (no (unknown) (unknown) Patient History (units (unknown) date) unknown) (unknown) (no (unknown) (unknown) Patient has sinus (units (unknown) date) rhythm occasional unknown) PVC, right bundle-branch, LVH, patient has (unknown) (no (unknown) (unknown) Patient states (units (unknown) date) that she had unknown) stopped her prednisone on the after a recent (unknown) (no (unknown) (unknown) Patient: (units (unkno wn) date) Roselyn Mejia unknown) MR#: [id number] (unknown) (no (unknown) (unknown) Patient: (units (unkno wn) date) Roselyn Mejia unknown) (unknown) (no (unknown) (unknown) Plt Count (units (unkn own) date) (150-400) X103/uL unknown) (unknown) (no (unknown) (unknown) Plt Count 244 (units ( unknown) date) (150-400) X103/uL unknown) (unknown) (no (unknown) (unknown) Potassium (units (unkn own) date) (3.4-5.1) mmol/L unknown) (unknown) (no (unknown) (unknown) Potassium 4.0 (units ( unknown) date) (3.4-5.1) mmol/L unknown) (unknown) (no (unknown) (unknown) Prescriptions: (units (unknown) date) unknown) (unknown) (no (unknown) (unknown) Prior ECG (units (unkn own) date) tracings: available unknown) for review (unknown) (no (unknown) (unknown) Procedure: XR (units ( unknown) date) chest 1V unknown) (unknown) (no (unknown) (unknown) Prothrombin Time (units (unknown) date) INR Stat unknown) (unknown) (no (unknown) (unknown) Pulse Oximetry 96 (units (unknown) date) 02/09/23 18:15 unknown) (unknown) (no (unknown) (unknown) Pulse Oximetry 96 (units (unknown) date) 94 unknown) (unknown) (no (unknown) (unknown) Pulse Rate 84 (units ( unknown) date) 02/09/23 18:15 unknown) (unknown) (no (unknown) (unknown) Pulse Rate 84 77 (units (unknown) date) unknown) (unknown) (no (unknown) (unknown) Q-waves 3 and AVF. (units (unknown) date) Lateral leads. unknown) Patient has EKG from 12/06/2022 which (unknown) (no (unknown) (unknown) RBC (4.0-5.2) (units ( unknown) date) X106/uL unknown) (unknown) (no (unknown) (unknown) RBC 4.83 (4.0-5.2) (units (unknown) date) X106/uL unknown) (unknown) (no (unknown) (unknown) RDW (11.6-14.8) % (units (unknown) date) unknown) (unknown) (no (unknown) (unknown) RDW 16.3 H (units (unk nown) date) (11.6-14.8) % unknown) (unknown) (no (unknown) (unknown) RESPIRATORY: (units (u nknown) date) Breath sounds equal unknown) bilaterally, no wheezes rales or rhonchi. No (unknown) (no (unknown) (unknown) ROS Unobtainable: (units (unknown) date) All systems unknown) reviewed + are unremarkable except as noted in HPI (unknown) (no (unknown) (unknown) Radiologist's (units ( unknown) date) Impression: unknown) (unknown) (no (unknown) (unknown) Referrals: (units (unk nown) date) unknown) (unknown) (no (unknown) (unknown) Related Data (units (u nknown) date) unknown) (unknown) (no (unknown) (unknown) Respiratory Rate (units (unknown) date) 20 02/09/23 18:15 unknown) (unknown) (no (unknown) (unknown) Respiratory Rate (units (unknown) date) 20 18 unknown) (unknown) (no (unknown) (unknown) Review of Systems (units (unknown) date) unknown) (unknown) (no (unknown) (unknown) Robitussin DM To (units (unknown) date) Go 10 ml PO PRN unknown) Cough 07/24/22 (unknown) (no (unknown) (unknown) Robitussin DM To (units (unknown) date) Go unknown) (unknown) (no (unknown) (unknown) Rx Instructions: (units (unknown) date) unknown) (unknown) (no (unknown) (unknown) SKIN: Warm, dry, (units (unknown) date) no petechiae, no unknown) rashes or lesions. (unknown) (no (unknown) (unknown) She took took (units ( unknown) date) puffs on the way unknown) over here and it helped her symptoms. Patient (unknown) (no (unknown) (unknown) Signed By: (units (unk nown) date) unknown) (unknown) (no (unknown) (unknown) Signed (units (unkno wn) date) unknown) (unknown) (no (unknown) (unknown) Skin (units (unkno wn) date) unknown) (unknown) (no (unknown) (unknown) Smoking Status: (units (unknown) date) Former smoker unknown) (unknown) (no (unknown) (unknown) Social History (units (unknown) date) (Reviewed 02/09/23 unknown) @ 19:35 by Glo Vela DO) (unknown) (no (unknown) (unknown) Sodium (137-145) (units (unknown) date) mmol/L unknown) (unknown) (no (unknown) (unknown) Sodium 135 L (units (u nknown) date) (137-145) mmol/L unknown) (unknown) (no (unknown) (unknown) Source: patient (units (unknown) date) unknown) (unknown) (no (unknown) (unknown) Stated Complaint: (units (unknown) date) has COPD, sent [facility] unknown) (unknown) (no (unknown) (unknown) Status post (units (un known) date) cholecystectomy unknown) (unknown) (no (unknown) (unknown) Stop: 02/09/23 (units (unknown) date) 18:22 unknown) (unknown) (no (unknown) (unknown) Substance Use (units ( unknown) date) Type: does not use unknown) (unknown) (no (unknown) (unknown) Sulfa (Sulfonamide (units (unknown) date) Allergy unknown) Intermediate rash Verified 02/09/23 18:21 (unknown) (no (unknown) (unknown) Surgical History (units (unknown) date) (Reviewed 02/09/23 unknown) @ 19:35 by Glo Vela DO) (unknown) (no (unknown) (unknown) Surgical changes (units (unknown) date) and devices:? unknown) Status post median sternotomy. (unknown) (no (unknown) (unknown) TAKE 1 CAPSULE BY (units (unknown) date) MOUTH ONCE DAILY unknown) (unknown) (no (unknown) (unknown) TAKE 1 TABLET BY (units (unknown) date) MOUTH ONCE DAILY IN unknown) THE MORNING (unknown) (no (unknown) (unknown) TAKE 1 TABLET BY (units (unknown) date) MOUTH ONCE DAILY unknown) (unknown) (no (unknown) (unknown) TECHNIQUE:? One (units (unknown) date) view of the chest unknown) was acquired.? (unknown) (no (unknown) (unknown) Temperature 98.1 F (units (unknown) date) 02/09/23 18:15 unknown) (unknown) (no (unknown) (unknown) Temperature 98.1 F (units (unknown) date) unknown) (unknown) (no (unknown) (unknown) They recommended (units (unknown) date) she come for unknown) evaluation but also told her to try her inhaler. (unknown) (no (unknown) (unknown) This is an (units (unk nown) date) 87-year-old female unknown) who comes with complaint of shortness of breath (unknown) (no (unknown) (unknown) This is an (units (unkn own) date) 87-year-old with unknown) history of COPD on 2 L nasal cannula 24 hours a day, (unknown) (no (unknown) (unknown) Time Seen by (units (u nknown) date) Provider: 02/09/23 unknown) 19:10 (unknown) (no (unknown) (unknown) Total Bilirubin (units (unknown) date) (0.2-1.3) mg/dL unknown) (unknown) (no (unknown) (unknown) Total Bilirubin (units (unknown) date) 2.7 H (0.2-1.3) unknown) mg/dL (unknown) (no (unknown) (unknown) Total Creatine (units (unknown) date) Kinase (30-135) U/L unknown) (unknown) (no (unknown) (unknown) Total Creatine (units (unknown) date) Kinase 30 (30-135) unknown) U/L (unknown) (no (unknown) (unknown) Total Protein (units ( unknown) date) (6.3-8.2) g/dL unknown) (unknown) (no (unknown) (unknown) Total Protein 7.3 (units (unknown) date) (6.3-8.2) g/dL unknown) (unknown) (no (unknown) (unknown) Trop I [Troponin (units (unknown) date) I] Stat unknown) (unknown) (no (unknown) (unknown) Troponin + CK (units ( unknown) date) Cardiac Panel Stat unknown) (unknown) (no (unknown) (unknown) Troponin I (units (unk nown) date) (0.01-0.034) ng/mL unknown) (unknown) (no (unknown) (unknown) Troponin I 0.017 (units (unknown) date) (0.01-0.034) ng/mL unknown) (unknown) (no (unknown) (unknown) Unstable angina (units (unknown) date) unknown) (unknown) (no (unknown) (unknown) Valvular heart (units (unknown) date) disease unknown) (unknown) (no (unknown) (unknown) Vital Signs - 8 hr (units (unknown) date) unknown) (unknown) (no (unknown) (unknown) Vital Signs (units (un known) date) unknown) (unknown) (no (unknown) (unknown) Vital signs: (units (u nknown) date) unknown) (unknown) (no (unknown) (unknown) WBC (4.5-11.0) (units (unknown) date) X103/uL unknown) (unknown) (no (unknown) (unknown) WBC 12.8 H (units (unk nown) date) (4.5-11.0) X103/uL unknown) (unknown) (no (unknown) (unknown) Katy Salazar, (units (unknown) date) 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 [Primary Care unknown) Provider] (unknown) (no (unknown) (unknown) XR chest 1V Stat (units (unknown) date) unknown) (unknown) (no (unknown) (unknown) XRay Report (units (un known) date) unknown) (unknown) (no (unknown) (unknown) [Embedded Image (units (unknown) date) Not Available] unknown) (unknown) (no (unknown) (unknown) [From Bactrim] (units (unknown) date) unknown) (unknown) (no (unknown) (unknown) [From Trilipix] (units (unknown) date) Upset unknown) (unknown) (no (unknown) (unknown) acarbose Allergy (units (unknown) date) Intermediate unknown) Abdominal Verified 02/09/23 18:21 (unknown) (no (unknown) (unknown) albuterol 90 (units (u nknown) date) mcg/actuation unknown) Aerosol (unknown) (no (unknown) (unknown) albuterol 90 (units (u nknown) date) mcg/actuation unknown) aerosol 90 mcg inhalation PRN Shortness Of 07/24/22 (unknown) (no (unknown) (unknown) albuterol just (units (unknown) date) before arriving unknown) which he states has significantly improved her (unknown) (no (unknown) (unknown) alcohol intake (units (unknown) date) frequency: 0-2 unknown) drinks per day (unknown) (no (unknown) (unknown) alcohol intake: (units (unknown) date) never unknown) (unknown) (no (unknown) (unknown) alcohol, no (units (un known) date) illicit. 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 unknown) She notes it got better after she used her (unknown) (no (unknown) (unknown) and below (units (unkn own) date) unknown) (unknown) (no (unknown) (unknown) any new swelling (units (unknown) date) in her extremities. unknown) She states she went to the walk-in clinic (unknown) (no (unknown) (unknown) appear (units (unkno wn) date) unknown) (unknown) (no (unknown) (unknown) appears similar (units (unknown) date) with no acute or unknown) dynamic changes. (unknown) (no (unknown) (unknown) aspirin 81 MG (units ( unknown) date) tablet,delayed unknown) release (DR/EC) (unknown) (no (unknown) (unknown) aspirin 81 mg (units ( unknown) date) tablet,delayed 81 unknown) mg PO QDAY ##0 09/14/17 07/24/22 (unknown) (no (unknown) (unknown) atorvastatin 20 mg (units (unknown) date) tablet (Lipitor) 40 unknown) mg PO QPM 07/08/22 07/24/22 (unknown) (no (unknown) (unknown) atorvastatin (units (u nknown) date) [Lipitor] 20 mg unknown) tablet (unknown) (no (unknown) (unknown) because she could (units (unknown) date) not get a hold of unknown) her primary care at the manager service desk referral. (unknown) (no (unknown) (unknown) better when she (units (unknown) date) uses her inhaler. unknown) She tried to reach her physician was not able (unknown) (no (unknown) (unknown) bilaterally lower (units (unknown) date) extremities. unknown) Neurovascularly intact (unknown) (no (unknown) (unknown) budesonide [From (units (unknown) date) Symbicort] Allergy unknown) Mild Anxiety Verified 02/09/23 18:21 (unknown) (no (unknown) (unknown) but she is (units (unk nown) date) asymptomatic unknown) otherwise negative LFTs. Initial troponin is negative. (unknown) (no (unknown) (unknown) capsule,extended (units (unknown) date) release 24 hr unknown) (unknown) (no (unknown) (unknown) carvedilol Allergy (units (unknown) date) Mild Rash Verified unknown) 02/09/23 18:21 (unknown) (no (unknown) (unknown) chest with (units (unk nown) date) exertion. She unknown) denies diaphoresis, she states it does seem to get (unknown) (no (unknown) (unknown) chlorthalidone (units (unknown) date) Allergy unknown) Intermediate Redness of Verified 02/09/23 18:21 (unknown) (no (unknown) (unknown) choline (units (unkno wn) date) fenofibrate Allergy unknown) Mild Gastrointestinal Verified 02/09/23 18:21 (unknown) (no (unknown) (unknown) clopidogrel 75 mg (units (unknown) date) tablet 75 mg PO QAM unknown) 07/24/22 07/24/22 (unknown) (no (unknown) (unknown) clopidogrel 75 mg (units (unknown) date) tablet unknown) (unknown) (no (unknown) (unknown) cyclobenzaprine 10 (units (unknown) date) mg Tablet unknown) (unknown) (no (unknown) (unknown) cyclobenzaprine 10 (units (unknown) date) mg tablet 10 mg PO unknown) TID PRN Muscle Spasm 07/24/22 07/24/22 (unknown) (no (unknown) (unknown) denies any fevers, (units (unknown) date) no chills, no cold, unknown) cough or congestion she is had some more (unknown) (no (unknown) (unknown) diaphoretic with (units (unknown) date) it. No nausea no unknown) vomiting. No abdominal back or flank pain, (unknown) (no (unknown) (unknown) diltiazem HCl 120 (units (unknown) date) mg 120 mg PO QAM unknown) 07/08/22 07/24/22 (unknown) (no (unknown) (unknown) diltiazem HCl (units ( unknown) date) [Cartia XT] 120 mg unknown) capsule,extended release 24hr (unknown) (no (unknown) (unknown) does use Advair (units (unknown) date) twice daily, she unknown) states she typically uses her albuterol couple (unknown) (no (unknown) (unknown) doxazosin [From (units (unknown) date) Cardura] Allergy unknown) Intermediate Rash Verified 02/09/23 18:21 (unknown) (no (unknown) (unknown) doxycycline (units (un known) date) Allergy unknown) Intermediate Rash Verified 02/09/23 18:21 (unknown) (no (unknown) (unknown) elevated than her (units (unknown) date) usual, normal unknown) electrolytes no significant anemia, no (unknown) (no (unknown) (unknown) enlarged, stable. (units (unknown) date) Interstitial unknown) prominence is unchanged compared to the prior (unknown) (no (unknown) (unknown) evaluation. She (units (unknown) date) has a history unknown) significant for COPD on 2 L nasal cannula at all (unknown) (no (unknown) (unknown) extremities (units (un known) date) unknown) (unknown) (no (unknown) (unknown) flare. She is had (units (unknown) date) a little bit unknown) increased shortness of breath and heaviness in (unknown) (no (unknown) (unknown) formoterol [From (units (unknown) date) Symbicort] Allergy unknown) Mild Anxiety Verified 02/09/23 18:21 (unknown) (no (unknown) (unknown) frequent belching. (units (unknown) date) She states it is unknown) always substernal not radiating it is worse (unknown) (no (unknown) (unknown) frequently but (units (unknown) date) states no dysuria, unknown) urgency or other changes. Patient has not had (unknown) (no (unknown) (unknown) furosemide 40 mg (units (unknown) date) tablet 40 mg PO QAM unknown) 07/08/22 07/08/22 (unknown) (no (unknown) (unknown) furosemide 40 mg (units (unknown) date) tablet unknown) (unknown) (no (unknown) (unknown) gemfibrozil (units (un known) date) Allergy unknown) Intermediate Rash Verified 02/09/23 18:21 (unknown) (no (unknown) (unknown) guarding or (units (un known) date) rebound, rigidity, unknown) no mass (unknown) (no (unknown) (unknown) has some shortness (units (unknown) date) of breath, and does unknown) sometimes have a heavy feeling in her (unknown) (no (unknown) (unknown) her substernal (units (unknown) date) chest for the past unknown) 1-2 days and while walking at [employer] the (unknown) (no (unknown) (unknown) history. Initial (units (unknown) date) workup CBC, coags, unknown) CMP shows creatinine of 1.06 slightly (unknown) (no (unknown) (unknown) household members: (units (unknown) date) family and children unknown) (unknown) (no (unknown) (unknown) improved from the (units (unknown) date) 5000 range she was unknown) at previously. Repeat EKG and troponin (unknown) (no (unknown) (unknown) inhaler Breath (units (unknown) date) unknown) (unknown) (no (unknown) (unknown) inhaler. She did (units (unknown) date) stop her prednisone unknown) on February 06. Patient states she always (unknown) (no (unknown) (unknown) ipratropium 0.5 (units (unknown) date) mg-albuterol 3 mg unknown) ml inhalation PRN Shortness Of 07/24/22 (unknown) (no (unknown) (unknown) ipratropium-albute (units (unknown) date) rol 0.5 mg-3 mg(2.5 unknown) mg base)/3 mL solution for nebulization (unknown) (no (unknown) (unknown) isosorbide (units (unk nown) date) mononitrate 120 mg unknown) 120 mg PO QAM 07/08/22 07/24/22 (unknown) (no (unknown) (unknown) isosorbide (units (unk nown) date) mononitrate 120 mg unknown) tablet extended release 24 hr (unknown) (no (unknown) (unknown) leukocytosis, (units ( unknown) date) bilirubin slightly unknown) elevated 2.7 has been intermittently elevated (unknown) (no (unknown) (unknown) levofloxacin (units (u nknown) date) Allergy unknown) Intermediate Rash Verified 02/09/23 18:21 (unknown) (no (unknown) (unknown) levothyroxine 88 (units (unknown) date) mcg tablet 88 mcg unknown) PO QAM 07/08/22 07/24/22 (unknown) (no (unknown) (unknown) levothyroxine 88 (units (unknown) date) mcg tablet unknown) (unknown) (no (unknown) (unknown) likely chronic.? (units (unknown) date) unknown) (unknown) (no (unknown) (unknown) lisinopril 40 mg (units (unknown) date) tablet 20 mg PO QAM unknown) 07/08/22 07/24/22 (unknown) (no (unknown) (unknown) lisinopril 40 mg (units (unknown) date) tablet unknown) (unknown) (no (unknown) (unknown) losartan Allergy (units (unknown) date) Intermediate Rash unknown) Verified 02/09/23 18:21 (unknown) (no (unknown) (unknown) metoprolol AdvReac (units (unknown) date) Intermediate unknown) Verified 02/09/23 18:21 (unknown) (no (unknown) (unknown) metoprolol (units (unk nown) date) succinate 25 mg 25 unknown) mg PO DAILY 07/24/22 07/24/22 (unknown) (no (unknown) (unknown) metoprolol (units (unk nown) date) succinate 25 mg unknown) tablet extended release 24 hr (unknown) (no (unknown) (unknown) moist mucous (units (u nknown) date) membranes unknown) (unknown) (no (unknown) (unknown) montelukast [From (units (unknown) date) Singulair] Allergy unknown) Intermediate Difficulty Verified 02/09/23 (unknown) (no (unknown) (unknown) morning (units (unkno wn) date) unknown) (unknown) (no (unknown) (unknown) multiple (units (unkno wn) date) allergies. She unknown) smoked for about 17 years quitting in the 70s. No (unknown) (no (unknown) (unknown) multivitamin 1 tab (units (unknown) date) PO DAILY 09/10/18 unknown) 07/24/22 (unknown) (no (unknown) (unknown) multivitamin (units (u nknown) date) Tablet,Chewable unknown) (unknown) (no (unknown) (unknown) nifedipine Allergy (units (unknown) date) Intermediate Chills unknown) Verified 02/09/23 18:21 (unknown) (no (unknown) (unknown) nitroglycerin 0.4 (units (unknown) date) mg sublingual 0.4 unknown) mg sublingual Q5-15M PRN Chest 09/10/18 (unknown) (no (unknown) (unknown) nitroglycerin (units ( unknown) date) [Nitrostat] 0.4 mg unknown) Tablet, Sublingual (unknown) (no (unknown) (unknown) no issues with (units (unknown) date) bowel movements. unknown) She is on water pills so she urinates (unknown) (no (unknown) (unknown) omega (units (unkno wn) date) 0-dfv-cpt-fish oil unknown) 1,000 mg 1,000 mg PO DAILY 09/10/18 07/24/22 (unknown) (no (unknown) (unknown) omega (units (unkno wn) date) 3-qis-qsb-fish oil unknown) [Fish Oil] 1,000 mg (120 mg-180 mg) Capsule (unknown) (no (unknown) (unknown) other day while (units (unknown) date) shopping felt a unknown) little bit more heaviness. 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 unknown) d/c 07/14/22 (unknown) (no (unknown) (unknown) release (units (unkno wn) date) unknown) (unknown) (no (unknown) (unknown) she forgets to use (units (unknown) date) her inhaler unknown) frequently and has not been using that. She (unknown) (no (unknown) (unknown) show (units (unkno wn) date) unknown) (unknown) (no (unknown) (unknown) soln (units (unkno wn) date) unknown) (unknown) (no (unknown) (unknown) statin medication (units (unknown) date) for hypothyroidism, unknown) blood pressure. Patient states she has (unknown) (no (unknown) (unknown) study and is (units (u nknown) date) unknown) (unknown) (no (unknown) (unknown) sulfamethoxazole (units (unknown) date) Allergy unknown) Intermediate Rash Verified 02/09/23 18:21 (unknown) (no (unknown) (unknown) symptoms are more (units (unknown) date) secondary to her unknown) airway disease. (unknown) (no (unknown) (unknown) symptoms. She (units ( unknown) date) denies any symptoms unknown) currently. Patient does have a cardiac (unknown) (no (unknown) (unknown) tablet (Nitrostat) (units (unknown) date) Pain unknown) (unknown) (no (unknown) (unknown) tablet,extended (units (unknown) date) release 24 hr unknown) (unknown) (no (unknown) (unknown) tachypnea. Speaks (units (unknown) date) in full sentences. unknown) Easy work of breathing. (unknown) (no (unknown) (unknown) times a week but (units (unknown) date) typically also unknown) forgets to use it. She is on aspirin, Plavix, (unknown) (no (unknown) (unknown) times, CABG, CHF (units (unknown) date) she is on her unknown) Advair b.i.d., she has stopped prednisone on the (unknown) (no (unknown) (unknown) to see them was (units (unknown) date) referred to the unknown) walk-in clinic who sent her here for (unknown) (no (unknown) (unknown) tobacco type: (units ( unknown) date) cigarettes unknown) (unknown) (no (unknown) (unknown) torsemide 20 mg (units (unknown) date) Tablet unknown) (unknown) (no (unknown) (unknown) torsemide 20 mg (units (unknown) date) tablet 20 mg PO unknown) DAILY 07/24/22 07/24/22 (unknown) (no (unknown) (unknown) trimethoprim [From (units (unknown) date) Bactrim] Allergy unknown) Intermediate Rash Verified 02/09/23 18:21 (unknown) (no (unknown) (unknown) unremarkable.? (units (unknown) date) unknown) (unknown) (no (unknown) (unknown) vitamin E 268 mg (units (unknown) date) (400 unit) capsule unknown) 400 unit PO DAILY 09/10/18 07/24/22 (unknown) (no (unknown) (unknown) vitamin E 400 unit (units (unknown) date) Capsule unknown) (unknown) (no (unknown) (unknown) weekly. Her (units (un known) date) primary care is unknown) Katy Salazar. She has not been following (unknown) (no (unknown) (unknown) with exertion she (units (unknown) date) has a little bit unknown) more shortness of breath. She does not get (unknown) (no (unknown) (unknown) with pulmonology (units (unknown) date) regularly but has unknown) been seen, she sees cardiology. Result panel [id number] (unknown) (no date) (unknown) (unknown) 0.021 ng/ml (unkn own) (unknown) (no date) (unknown) (unknown) 0.021 ng/ml (unkn own) Result panel 1786 (unknown) (no (unknown) (unknown) (no value) (units (unk nown) date) unknown) (unknown) (no (unknown) (unknown) (120 mg-180 mg) (units (unknown) date) capsule (Fish Oil) unknown) (unknown) (no (unknown) (unknown) (2.5 mg base)/3 mL (units (unknown) date) nebulization Breath unknown) Or Wheezing (unknown) (no (unknown) (unknown) (Cartia XT) (units (un known) date) unknown) (unknown) (no (unknown) (unknown) 0.4 mg SUBLINGUAL (units (unknown) date) Q5-15M PRN (Reason: unknown) Chest Pain) (unknown) (no (unknown) (unknown) [id number] (units (unkno wn) date) unknown) (unknown) (no (unknown) (unknown) 02/09/23 02/09/23 (units (unknown) date) 02/09/23 unknown) Range/Units (unknown) (no (unknown) (unknown) 02/09/23 02/09/23 (units (unknown) date) Range/Units unknown) (unknown) (no (unknown) (unknown) 02/09/23 18:21 (units (unknown) date) unknown) (unknown) (no (unknown) (unknown) 02/09/23 18:30 (units (unknown) date) unknown) (unknown) (no (unknown) (unknown) 02/09/23 20:30 (units (unknown) date) unknown) (unknown) (no (unknown) (unknown) 02/09/23 21:00 (units (unknown) date) unknown) (unknown) (no (unknown) (unknown) 02/09/23 (units (unkno wn) date) unknown) (unknown) (no (unknown) (unknown) 07/24/22 (units (unkno wn) date) unknown) (unknown) (no (unknown) (unknown) 1 tab PO DAILY (units (unknown) date) unknown) (unknown) (no (unknown) (unknown) 1,000 mg PO DAILY (units (unknown) date) unknown) (unknown) (no (unknown) (unknown) 1. No acute (units (un known) date) cardiopulmonary unknown) abnormality. (unknown) (no (unknown) (unknown) 10 mg PO TID PRN (units (unknown) date) (Reason: Muscle unknown) Spasm) (unknown) (no (unknown) (unknown) 10 ml PO PRN (units (u nknown) date) (Reason: Cough) unknown) (unknown) (no (unknown) (unknown) 10-100mg/5ml (units (u nknown) date) liquid. take 10ml unknown) by mouth every 4 hrs as needed for cough (unknown) (no (unknown) (unknown) 06 of February she (units (unknown) date) is not wheezy unknown) initially on exam but had used 2 puffs of her (unknown) (no (unknown) (unknown) 120 mg PO QAM (units ( unknown) date) unknown) (unknown) (no (unknown) (unknown) [address] [place] [address] (units (unknown) date) unknown) (unknown) (no (unknown) (unknown) 18:15 02/09/23 (units (unknown) date) unknown) (unknown) (no (unknown) (unknown) 18:21 (units (unkno wn) date) unknown) (unknown) (no (unknown) (unknown) 18:30 18:30 18:30 (units (unknown) date) unknown) (unknown) (no (unknown) (unknown) 18:30 20:30 (units (un known) date) unknown) (unknown) (no (unknown) (unknown) 19:18 (units (unkno wn) date) unknown) (unknown) (no (unknown) (unknown) 2. Stable (units (unkn own) date) cardiomegaly.? unknown) (unknown) (no (unknown) (unknown) 20 mg PO DAILY (units (unknown) date) unknown) (unknown) (no (unknown) (unknown) 20 mg PO QAM (units (u nknown) date) unknown) (unknown) (no (unknown) (unknown) 25 mg PO DAILY (units (unknown) date) unknown) (unknown) (no (unknown) (unknown) 40 mg PO QAM (units (u nknown) date) unknown) (unknown) (no (unknown) (unknown) 40 mg PO QPM (units (u nknown) date) unknown) (unknown) (no (unknown) (unknown) 400 unit PO DAILY (units (unknown) date) unknown) (unknown) (no (unknown) (unknown) 74 [place] 172 QRS of (units (unknown) date) 158 QTC of 479. unknown) Patient does have Q-wave in lead 3 and AVF. (unknown) (no (unknown) (unknown) 75 mg PO QAM (units (u nknown) date) unknown) (unknown) (no (unknown) (unknown) 81 mg PO QDAY Qty: (units (unknown) date) 0 unknown) (unknown) (no (unknown) (unknown) 88 mcg PO QAM (units ( unknown) date) unknown) (unknown) (no (unknown) (unknown) 90 mcg INHALATION (units (unknown) date) PRN (Reason: unknown) Shortness Of Breath) (unknown) (no (unknown) (unknown) ? (units (unkno wn) date) unknown) (unknown) (no (unknown) (unknown) ABDOMEN: Soft, (units (unknown) date) nontender. unknown) Normoactive bowel sounds all 4 quadrants. No (unknown) (no (unknown) (unknown) ALT (<35) IU/L (units (unknown) date) unknown) (unknown) (no (unknown) (unknown) ALT 22 (<35) IU/L (units (unknown) date) unknown) (unknown) (no (unknown) (unknown) APTT (26-36) (units (u nknown) date) SECONDS unknown) (unknown) (no (unknown) (unknown) APTT 30 (26-36) (units (unknown) date) SECONDS unknown) (unknown) (no (unknown) (unknown) AST (14-36) IU/L (units (unknown) date) unknown) (unknown) (no (unknown) (unknown) AST 28 (14-36) (units (unknown) date) IU/L unknown) (unknown) (no (unknown) (unknown) Accession Number: (units (unknown) date) [id number] ?? unknown) (unknown) (no (unknown) (unknown) Acct:[id number] (units (unknown) date) unknown) (unknown) (no (unknown) (unknown) Activity (units (unkno wn) date) Restrictions/Additi unknown) onal Instructions: (unknown) (no (unknown) (unknown) Acute exacerbation (units (unknown) date) of chronic unknown) obstructive pulmonary disease (unknown) (no (unknown) (unknown) Age/Sex: 87 / F (units (unknown) date) unknown) (unknown) (no (unknown) (unknown) Albumin (3.5-5.0) (units (unknown) date) g/dL unknown) (unknown) (no (unknown) (unknown) Albumin 4.1 (units (un known) date) (3.5-5.0) g/dL unknown) (unknown) (no (unknown) (unknown) Albumin/Globulin (units (unknown) date) Ratio (1.0-2.8) unknown) (unknown) (no (unknown) (unknown) Albumin/Globulin (units (unknown) date) Ratio 1.3 (1.0-2.8) unknown) (unknown) (no (unknown) (unknown) Alkaline (units (unkno wn) date) Phosphatase unknown) (38-126) U/L (unknown) (no (unknown) (unknown) Alkaline (units (unkno wn) date) Phosphatase 76 unknown) (38-126) U/L (unknown) (no (unknown) (unknown) Allergies (units (unkn own) date) unknown) (unknown) (no (unknown) (unknown) Allergy/AdvReac (units (unknown) date) Type Severity unknown) Reaction Status Date / Time (unknown) (no (unknown) (unknown) [place], [place] (units ( unknown) date) [id number] unknown) (unknown) (no (unknown) (unknown) 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 on 02/09/2023 at 19:58?? (unknown) (no (unknown) (unknown) Aspirin (Aspirin (units (unknown) date) 81 Mg Chew Tab) 324 unknown) mg PO NOW ONE (unknown) (no (unknown) (unknown) Attestation: I (units (unknown) date) personally reviewed unknown) and interpreted this ECG as follows: (unknown) (no (unknown) (unknown) BNP [NT-proBNP (units (unknown) date) (BNP-Adult 18+)] unknown) Stat (unknown) (no (unknown) (unknown) BUN (7-17) mg/dL (units (unknown) date) unknown) (unknown) (no (unknown) (unknown) BUN 26 H (7-17) (units (unknown) date) mg/dL unknown) (unknown) (no (unknown) (unknown) BUN/Creatinine (units (unknown) date) Ratio (6-22) unknown) (unknown) (no (unknown) (unknown) BUN/Creatinine (units (unknown) date) Ratio 24.5 H (6-22) unknown) (unknown) (no (unknown) (unknown) Baso # (Auto) (units ( unknown) date) (0-100) /uL unknown) (unknown) (no (unknown) (unknown) Baso # (Auto) 100 (units (unknown) date) (0-100) /uL unknown) (unknown) (no (unknown) (unknown) Baso % (Auto) (units ( unknown) date) (0-2) % unknown) (unknown) (no (unknown) (unknown) Baso % (Auto) 0.4 (units (unknown) date) (0-2) % unknown) (unknown) (no (unknown) (unknown) 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 No unknown) suspicious bony lesions.? Overlying soft tissues (unknown) (no (unknown) (unknown) Breathing (units (unkn own) date) unknown) (unknown) (no (unknown) (unknown) CABG, CHF, (units (unk nown) date) hypertension, unknown) dyslipidemia anticoagulated on aspirin and Plavix. (unknown) (no (unknown) (unknown) 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) unknown) (unknown) (no (unknown) (unknown) CARDIOVASCULAR: (units (unknown) date) Regular rate and unknown) rhythm without murmurs, rubs or gallops. No (unknown) (no (unknown) (unknown) CK-MB (CK-2) Rel (units (unknown) date) Index TNP unknown) (unknown) (no (unknown) (unknown) CK-MB (CK-2) Rel (units (unknown) date) Index unknown) (unknown) (no (unknown) (unknown) CK-MB (CK-2) TNP (units (unknown) date) unknown) (unknown) (no (unknown) (unknown) CK-MB (CK-2) (units (u nknown) date) unknown) (unknown) (no (unknown) (unknown) COMPARISON:? (units (u nknown) date) [facility], unknown) CR, XR CHEST 1V, 12/06/2022, 13:21. 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 unknown) BNP is elevated in the 2000 range but is (unknown) (no (unknown) (unknown) Chest x-ray: (units (u nknown) date) unknown) (unknown) (no (unknown) (unknown) Chief Complaint: (units (unknown) date) Chest Pain unknown) (unknown) (no (unknown) (unknown) Chloride (98-107) (units (unknown) date) mmol/L unknown) (unknown) (no (unknown) (unknown) Chloride 95 L (units ( unknown) date) (98-107) mmol/L unknown) (unknown) (no (unknown) (unknown) Clinical (units (unkno wn) date) Impression: unknown) (unknown) (no (unknown) (unknown) Complete Blood (units (unknown) date) Count AUTO DIFF unknown) Stat (unknown) (no (unknown) (unknown) Comprehensive (units ( unknown) date) Metabolic Panel unknown) Stat (unknown) (no (unknown) (unknown) Continue to use (units (unknown) date) her albuterol you unknown) can do 2 puffs every 4 hours as needed. (unknown) (no (unknown) (unknown) Continue your home (units (unknown) date) medications as unknown) prescribed. (unknown) (no (unknown) (unknown) Course (units (unkno wn) date) unknown) (unknown) (no (unknown) (unknown) Creatinine (units (unk nown) date) (0.52-1.04) mg/dL unknown) (unknown) (no (unknown) (unknown) Creatinine 1.06 H (units (unknown) date) (0.52-1.04) mg/dL unknown) (unknown) (no (unknown) (unknown) : 1935 (units (unknown) date) Acct:[id number] unknown) (unknown) (no (unknown) (unknown) : 1935 (units (unknown) date) unknown) (unknown) (no (unknown) (unknown) Date of Service: (units (unknown) date) 02/09/23 unknown) (unknown) (no (unknown) (unknown) Departure (units (unkn own) date) unknown) (unknown) (no (unknown) (unknown) Dictated by: (units (u nknown) date) ramona Contreras M.D. on 02/09/2023 at 19:57 ? ? (unknown) (no (unknown) (unknown) Discharge Plan (units (unknown) date) unknown) (unknown) (no (unknown) (unknown) Discontinued (units (u nknown) date) Medications unknown) (unknown) (no (unknown) (unknown) Discussed with (units (unknown) date) patient she does unknown) have cardiac risk factors but I suspect her (unknown) (no (unknown) (unknown) Documented By: KLS (units (unknown) date) unknown) (unknown) (no (unknown) (unknown) ECG Data (units (unkno wn) date) unknown) (unknown) (no (unknown) (unknown) ED Orders (units (unkn own) date) unknown) (unknown) (no (unknown) (unknown) EKG-12 Lead Stat (units (unknown) date) unknown) (unknown) (no (unknown) (unknown) EKG2/sinus rhythm, (units (unknown) date) premature atrial unknown) complex, right bundle-branch, LVH. Rate of (unknown) (no (unknown) (unknown) ER Physician: (units ( unknown) date) Glo Vela D.O. unknown) (unknown) (no (unknown) (unknown) EXTREMITIES: (units (u nknown) date) Normal range of unknown) motion, no clubbing or edema. 2+ pulses (unknown) (no (unknown) (unknown) Elevated TSH (units (u nknown) date) unknown) (unknown) (no (unknown) (unknown) Emergency Report (units (unknown) date) unknown) (unknown) (no (unknown) (unknown) Eos # (Auto) (units (u nknown) date) (0-450) /uL unknown) (unknown) (no (unknown) (unknown) Eos # (Auto) 100 (units (unknown) date) (0-450) /uL unknown) (unknown) (no (unknown) (unknown) Eos % (Auto) (2-4) (units (unknown) date) % unknown) (unknown) (no (unknown) (unknown) Eos % (Auto) 0.9 L (units (unknown) date) (2-4) % unknown) (unknown) (no (unknown) (unknown) Estimated GFR (units ( unknown) date) (>60) mL/min unknown) (unknown) (no (unknown) (unknown) Estimated GFR 51 L (units (unknown) date) (>60) mL/min unknown) (unknown) (no (unknown) (unknown) Exam Narrative: (units (unknown) date) unknown) (unknown) (no (unknown) (unknown) Exam (units (unkno wn) date) unknown) (unknown) (no (unknown) (unknown) FINDINGS:? (units (unk nown) date) unknown) (unknown) (no (unknown) (unknown) Family History (units (unknown) date) (Reviewed 02/09/23 unknown) @ 19:35 by Glo Vela DO) (unknown) (no (unknown) (unknown) Father Lung cancer (units (unknown) date) unknown) (unknown) (no (unknown) (unknown) Flonase 50 mcg (units (unknown) date) unknown) (unknown) (no (unknown) (unknown) Flonase PRN Dry (units (unknown) date) Nasal Passages unknown) 07/24/22 (unknown) (no (unknown) (unknown) GENERAL: Alert and (units (unknown) date) oriented x three, unknown) elderly female in no acute distress. (unknown) (no (unknown) (unknown) : No CVA (units (unk nown) date) tenderness unknown) (unknown) (no (unknown) (unknown) General (units (unkno wn) date) unknown) (unknown) (no (unknown) (unknown) Globulin (1.7-4.1) (units (unknown) date) g/dL unknown) (unknown) (no (unknown) (unknown) Globulin 3.2 (units (u nknown) date) (1.7-4.1) g/dL unknown) (unknown) (no (unknown) (unknown) Glucose (80-110) (units (unknown) date) mg/dL unknown) (unknown) (no (unknown) (unknown) Glucose 167 H (units ( unknown) date) (80-110) mg/dL unknown) (unknown) (no (unknown) (unknown) H/O hysterectomy (units (unknown) date) with oophorectomy unknown) (unknown) (no (unknown) (unknown) 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 (unknown) (no (unknown) (unknown) HEENT: Head (units (un known) date) normocephalic, unknown) atraumatic, EOMI, pupils reactive, face symmetric, (unknown) (no (unknown) (unknown) HPI - Chest Pain (units (unknown) date) unknown) (unknown) (no (unknown) (unknown) HPI narrative: (units (unknown) date) unknown) (unknown) (no (unknown) (unknown) HTN (hypertension) (units (unknown) date) unknown) (unknown) (no (unknown) (unknown) Hct (36-46) % (units ( unknown) date) unknown) (unknown) (no (unknown) (unknown) Hct 41.3 (36-46) % (units (unknown) date) unknown) (unknown) (no (unknown) (unknown) Hgb (12.0-16.0) (units (unknown) date) g/dL unknown) (unknown) (no (unknown) (unknown) Hgb 13.8 (units (unkno wn) date) (12.0-16.0) g/dL unknown) (unknown) (no (unknown) (unknown) History of Present (units (unknown) date) Illness unknown) (unknown) (no (unknown) (unknown) Home Medications (units (unknown) date) unknown) (unknown) (no (unknown) (unknown) Hx of heart artery (units (unknown) date) stent unknown) (unknown) (no (unknown) (unknown) Hyperlipidemia (units (unknown) date) unknown) (unknown) (no (unknown) (unknown) IMPRESSION:? (units (u nknown) date) unknown) (unknown) (no (unknown) (unknown) INDICATIONS:? (units ( unknown) date) chest pain unknown) (unknown) (no (unknown) (unknown) INHALATION PRN (units (unknown) date) (Reason: Shortness unknown) Of Breath Or Wheezing) (unknown) (no (unknown) (unknown) INR (0.9-1.3) (units ( unknown) date) unknown) (unknown) (no (unknown) (unknown) INR 1.1 (0.9-1.3) (units (unknown) date) unknown) (unknown) (no (unknown) (unknown) If you are needing (units (unknown) date) to use your unknown) albuterol more than 1 or 2 times daily or have (unknown) (no (unknown) (unknown) Imaging Data (units (u nknown) date) unknown) (unknown) (no (unknown) (unknown) Initial Vital (units ( unknown) date) Signs unknown) (unknown) (no (unknown) (unknown) Initial Vital (units ( unknown) date) Signs: unknown) (unknown) (no (unknown) (unknown) Instructions: (units ( unknown) date) Chronic Obstructive unknown) Pulmonary Disease (Alternative Therapy) (unknown) (no (unknown) (unknown) Interpretation: (units (unknown) date) unknown) (unknown) (no (unknown) (unknown) [facility] (units (unknown) date) [address] unknown) [place] [address] (unknown) (no (unknown) (unknown) [facility] (units (unknown) date) unknown) (unknown) (no (unknown) (unknown) JVD. No swelling (units (unknown) date) bilateral lower unknown) extremities. (unknown) (no (unknown) (unknown) Lab Data (units (unkno wn) date) unknown) (unknown) (no (unknown) (unknown) Lab Results (units (un known) date) unknown) (unknown) (no (unknown) (unknown) Labs: (units (unkno wn) date) unknown) (unknown) (no (unknown) (unknown) Last Admin: (units (un known) date) 02/09/23 19:28 unknown) Dose: Not Given (unknown) (no (unknown) (unknown) Lateral leads this (units (unknown) date) appears similar to unknown) today's earlier EKG and prior. (unknown) (no (unknown) (unknown) Limitations: no (units (unknown) date) limitations unknown) (unknown) (no (unknown) (unknown) Lipase (23-300) (units (unknown) date) U/L unknown) (unknown) (no (unknown) (unknown) Lipase 45 (23-300) (units (unknown) date) U/L unknown) (unknown) (no (unknown) (unknown) Lipase Stat (units (un known) date) unknown) (unknown) (no (unknown) (unknown) Loc: ED (units (unkno wn) date) unknown) (unknown) (no (unknown) (unknown) Lungs and pleura:? (units (unknown) date) Lungs are clear.? unknown) No pleural effusions or pneumothorax.? (unknown) (no (unknown) (unknown) Lymph # (Auto) (units (unknown) date) (1387-2808) /uL unknown) (unknown) (no (unknown) (unknown) Lymph # (Auto) (units (unknown) date) 1200 (2349-7803) unknown) /uL (unknown) (no (unknown) (unknown) Lymph % (Auto) (units (unknown) date) (25-40) % unknown) (unknown) (no (unknown) (unknown) Lymph % (Auto) 9.2 (units (unknown) date) L (25-40) % unknown) (unknown) (no (unknown) (unknown) MCH (26-34) PG (units (unknown) date) unknown) (unknown) (no (unknown) (unknown) MCH 28.7 (26-34) (units (unknown) date) PG unknown) (unknown) (no (unknown) (unknown) MCHC (30-36) % (units (unknown) date) unknown) (unknown) (no (unknown) (unknown) MCHC 33.6 (30-36) (units (unknown) date) % unknown) (unknown) (no (unknown) (unknown) MCV (80-100) fL (units (unknown) date) unknown) (unknown) (no (unknown) (unknown) MCV 85.4 (80-100) (units (unknown) date) fL unknown) (unknown) (no (unknown) (unknown) MDM - Chest Pain (units (unknown) date) unknown) (unknown) (no (unknown) (unknown) MDM Narrative (units ( unknown) date) unknown) (unknown) (no (unknown) (unknown) MR#: [id number] (units (unknown) date) unknown) (unknown) (no (unknown) (unknown) Magnesium (units (unkn own) date) (1.6-2.3) mg/dL unknown) (unknown) (no (unknown) (unknown) Magnesium 1.9 (units ( unknown) date) (1.6-2.3) mg/dL unknown) (unknown) (no (unknown) (unknown) Magnesium Stat (units (unknown) date) unknown) (unknown) (no (unknown) (unknown) Mediastinum:? (units (u nknown) date) Normal mediastinal unknown) contours.? The aorta is tortuous.? The heart is (unknown) (no (unknown) (unknown) Medical History (units (unknown) date) (Updated 02/09/23 @ unknown) 21:15 by Glo Vela DO) (unknown) (no (unknown) (unknown) Medical decision (units (unknown) date) making narrative: unknown) (unknown) (no (unknown) (unknown) Medication (units (unk nown) date) Instructions unknown) Recorded Confirmed (unknown) (no (unknown) (unknown) Mode of arrival: (units (unknown) date) Ambulatory unknown) (unknown) (no (unknown) (unknown) Trigg # (Auto) (units ( unknown) date) (0-900) /uL unknown) (unknown) (no (unknown) (unknown) Trigg # (Auto) 700 (units (unknown) date) (0-900) /uL unknown) (unknown) (no (unknown) (unknown) Trigg % (Auto) (units ( unknown) date) (3-14) % unknown) (unknown) (no (unknown) (unknown) Trigg % (Auto) 5.1 (units (unknown) date) (3-14) % unknown) (unknown) (no (unknown) (unknown) Mother COPD (units (un known) date) (chronic unknown) obstructive pulmonary disease) (unknown) (no (unknown) (unknown) NECK: Supple, full (units (unknown) date) range of motion unknown) (unknown) (no (unknown) (unknown) NEUROLOGICAL: (units ( unknown) date) Cranial nerves II unknown) through XII grossly intact. Moving all (unknown) (no (unknown) (unknown) NT-Pro-B Natriuret (units (unknown) date) Pep (<450) pg/mL unknown) (unknown) (no (unknown) (unknown) NT-Pro-B Natriuret (units (unknown) date) Pep 2300 H (<450) unknown) pg/mL (unknown) (no (unknown) (unknown) Narrative (units (unkn own) date) unknown) (unknown) (no (unknown) (unknown) Neut # (Auto) (units ( unknown) date) (0187-4786) /uL unknown) (unknown) (no (unknown) (unknown) Neut # (Auto) (units ( unknown) date) 88764 H (4838-7589) unknown) /uL (unknown) (no (unknown) (unknown) Neut % (Auto) (units ( unknown) date) (50-75) % unknown) (unknown) (no (unknown) (unknown) Neut % (Auto) 84.4 (units (unknown) date) H (50-75) % unknown) (unknown) (no (unknown) (unknown) No Action (units (unkn own) date) unknown) (unknown) (no (unknown) (unknown) Ordered: (units (unkno wn) date) unknown) (unknown) (no (unknown) (unknown) Ordering Provider: (units (unknown) date) Glo Vela D.O. unknown) (unknown) (no (unknown) (unknown) Orders (units (unkno wn) date) unknown) (unknown) (no (unknown) (unknown) Oxygen Delivery (units (unknown) date) Method Room Air unknown) 02/09/23 18:15 (unknown) (no (unknown) (unknown) Oxygen Delivery (units (unknown) date) Method Room Air unknown) Nasal Cannula (unknown) (no (unknown) (unknown) Oxygen Flow Rate 2 (units (unknown) date) unknown) (unknown) (no (unknown) (unknown) PRN (Reason: Dry (units (unknown) date) Nasal Passages) unknown) (unknown) (no (unknown) (unknown) PROCEDURE:? XR (units (unknown) date) CHEST 1V unknown) (unknown) (no (unknown) (unknown) PT (10.1-12.7) (units (unknown) date) SECONDS unknown) (unknown) (no (unknown) (unknown) PT 12.8 H (units (unkn own) date) (10.1-12.7) SECONDS unknown) (unknown) (no (unknown) (unknown) PTT Partial (units (un known) date) Thromboplastin Jorge Luis unknown) Stat (unknown) (no (unknown) (unknown) Pain (units (unkno wn) date) unknown) (unknown) (no (unknown) (unknown) Patient Comments: (units (unknown) date) unknown) (unknown) (no (unknown) (unknown) Patient (units (unkno wn) date) Disposition: Home unknown) (unknown) (no (unknown) (unknown) Patient History (units (unknown) date) unknown) (unknown) (no (unknown) (unknown) Patient has sinus (units (unknown) date) rhythm occasional unknown) PVC, right bundle-branch, LVH, patient has (unknown) (no (unknown) (unknown) Patient states (units (unknown) date) that she had unknown) stopped her prednisone on the after a recent (unknown) (no (unknown) (unknown) Patient: (units (unkno wn) date) Roselyn Mejia unknown) MR#: [id number] (unknown) (no (unknown) (unknown) Patient: (units (unkno wn) date) Roselyn Mejia unknown) (unknown) (no (unknown) (unknown) Please follow-up (units (unknown) date) for recheck. unknown) (unknown) (no (unknown) (unknown) Please return for (units (unknown) date) new or worsening unknown) chest pain or pressure, shortness of breath, (unknown) (no (unknown) (unknown) Plt Count (units (unkn own) date) (150-400) X103/uL unknown) (unknown) (no (unknown) (unknown) Plt Count 244 (units ( unknown) date) (150-400) X103/uL unknown) (unknown) (no (unknown) (unknown) Potassium (units (unkn own) date) (3.4-5.1) mmol/L unknown) (unknown) (no (unknown) (unknown) Potassium 4.0 (units ( unknown) date) (3.4-5.1) mmol/L unknown) (unknown) (no (unknown) (unknown) Prescription sent (units (unknown) date) to unknown) (unknown) (no (unknown) (unknown) Prescriptions: (units (unknown) date) unknown) (unknown) (no (unknown) (unknown) Prior ECG (units (unkn own) date) tracings: available unknown) for review (unknown) (no (unknown) (unknown) Procedure: XR (units ( unknown) date) chest 1V unknown) (unknown) (no (unknown) (unknown) Prothrombin Time (units (unknown) date) INR Stat unknown) (unknown) (no (unknown) (unknown) Pulse Oximetry 96 (units (unknown) date) 02/09/23 18:15 unknown) (unknown) (no (unknown) (unknown) Pulse Oximetry 96 (units (unknown) date) 94 unknown) (unknown) (no (unknown) (unknown) Pulse Rate 84 (units ( unknown) date) 02/09/23 18:15 unknown) (unknown) (no (unknown) (unknown) Pulse Rate 84 77 (units (unknown) date) unknown) (unknown) (no (unknown) (unknown) Q-waves 3 and AVF. (units (unknown) date) Lateral leads. unknown) Patient has EKG from 12/06/2022 which (unknown) (no (unknown) (unknown) RBC (4.0-5.2) (units ( unknown) date) X106/uL unknown) (unknown) (no (unknown) (unknown) RBC 4.83 (4.0-5.2) (units (unknown) date) X106/uL unknown) (unknown) (no (unknown) (unknown) RDW (11.6-14.8) % (units (unknown) date) unknown) (unknown) (no (unknown) (unknown) RDW 16.3 H (units (unk nown) date) (11.6-14.8) % unknown) (unknown) (no (unknown) (unknown) RESPIRATORY: (units (u nknown) date) Breath sounds equal unknown) bilaterally, no wheezes rales or rhonchi. No (unknown) (no (unknown) (unknown) ROS Unobtainable: (units (unknown) date) All systems unknown) reviewed + are unremarkable except as noted in HPI (unknown) (no (unknown) (unknown) Radiologist's (units ( unknown) date) Impression: unknown) (unknown) (no (unknown) (unknown) Referrals: (units (unk nown) date) unknown) (unknown) (no (unknown) (unknown) Related Data (units (u nknown) date) unknown) (unknown) (no (unknown) (unknown) Respiratory Rate (units (unknown) date) 20 02/09/23 18:15 unknown) (unknown) (no (unknown) (unknown) Respiratory Rate (units (unknown) date) 20 18 unknown) (unknown) (no (unknown) (unknown) Review of Systems (units (unknown) date) unknown) (unknown) (no (unknown) (unknown) Robitussin DM To (units (unknown) date) Go 10 ml PO PRN unknown) Cough 07/24/22 (unknown) (no (unknown) (unknown) Robitussin DM To (units (unknown) date) Go unknown) (unknown) (no (unknown) (unknown) Rx Instructions: (units (unknown) date) unknown) (unknown) (no (unknown) (unknown) SKIN: Warm, dry, (units (unknown) date) no petechiae, no unknown) rashes or lesions. (unknown) (no (unknown) (unknown) She took took (units ( unknown) date) puffs on the way unknown) over here and it helped her symptoms. Patient (unknown) (no (unknown) (unknown) Signed By: (units (unk nown) date) unknown) (unknown) (no (unknown) (unknown) Signed (units (unkno wn) date) unknown) (unknown) (no (unknown) (unknown) Skin (units (unkno wn) date) unknown) (unknown) (no (unknown) (unknown) Smoking Status: (units (unknown) date) Former smoker unknown) (unknown) (no (unknown) (unknown) Social History (units (unknown) date) (Reviewed 02/09/23 unknown) @ 19:35 by Glo Vela DO) (unknown) (no (unknown) (unknown) Sodium (137-145) (units (unknown) date) mmol/L unknown) (unknown) (no (unknown) (unknown) Sodium 135 L (units (u nknown) date) (137-145) mmol/L unknown) (unknown) (no (unknown) (unknown) Source: patient (units (unknown) date) unknown) (unknown) (no (unknown) (unknown) Stand Alone Forms: (units (unknown) date) Patient Portal/API unknown) (unknown) (no (unknown) (unknown) Stated Complaint: (units (unknown) date) has COPD, sent [facility] unknown) (unknown) (no (unknown) (unknown) Status post (units (un known) date) cholecystectomy unknown) (unknown) (no (unknown) (unknown) Stop: 02/09/23 (units (unknown) date) 18:22 unknown) (unknown) (no (unknown) (unknown) Substance Use (units ( unknown) date) Type: does not use unknown) (unknown) (no (unknown) (unknown) Sulfa (Sulfonamide (units (unknown) date) Allergy unknown) Intermediate rash Verified 02/09/23 18:21 (unknown) (no (unknown) (unknown) Surgical History (units (unknown) date) (Reviewed 02/09/23 unknown) @ 19:35 by Glo Vela DO) (unknown) (no (unknown) (unknown) Surgical changes (units (unknown) date) and devices:? unknown) Status post median sternotomy. (unknown) (no (unknown) (unknown) TAKE 1 CAPSULE BY (units (unknown) date) MOUTH ONCE DAILY unknown) (unknown) (no (unknown) (unknown) TAKE 1 TABLET BY (units (unknown) date) MOUTH ONCE DAILY IN unknown) THE MORNING (unknown) (no (unknown) (unknown) TAKE 1 TABLET BY (units (unknown) date) MOUTH ONCE DAILY unknown) (unknown) (no (unknown) (unknown) TECHNIQUE:? One (units (unknown) date) view of the chest unknown) was acquired.? (unknown) (no (unknown) (unknown) Temperature 98.1 F (units (unknown) date) 02/09/23 18:15 unknown) (unknown) (no (unknown) (unknown) Temperature 98.1 F (units (unknown) date) unknown) (unknown) (no (unknown) (unknown) They recommended (units (unknown) date) she come for unknown) evaluation but also told her to try her inhaler. (unknown) (no (unknown) (unknown) This is an (units (unk nown) date) 87-year-old female unknown) who comes with complaint of shortness of breath (unknown) (no (unknown) (unknown) This is an (units (unkn own) date) 87-year-old with unknown) history of COPD on 2 L nasal cannula 24 hours a day, (unknown) (no (unknown) (unknown) Time Seen by (units (u nknown) date) Provider: 02/09/23 unknown) 19:10 (unknown) (no (unknown) (unknown) Total Bilirubin (units (unknown) date) (0.2-1.3) mg/dL unknown) (unknown) (no (unknown) (unknown) Total Bilirubin (units (unknown) date) 2.7 H (0.2-1.3) unknown) mg/dL (unknown) (no (unknown) (unknown) Total Creatine (units (unknown) date) Kinase (30-135) U/L unknown) (unknown) (no (unknown) (unknown) Total Creatine (units (unknown) date) Kinase 30 (30-135) unknown) U/L (unknown) (no (unknown) (unknown) Total Protein (units ( unknown) date) (6.3-8.2) g/dL unknown) (unknown) (no (unknown) (unknown) Total Protein 7.3 (units (unknown) date) (6.3-8.2) g/dL unknown) (unknown) (no (unknown) (unknown) Trop I [Troponin (units (unknown) date) I] Stat unknown) (unknown) (no (unknown) (unknown) Troponin + CK (units ( unknown) date) Cardiac Panel Stat unknown) (unknown) (no (unknown) (unknown) Troponin I 0.017 (units (unknown) date) (0.01-0.034) ng/mL unknown) (unknown) (no (unknown) (unknown) Troponin I 0.021 (units (unknown) date) (0.01-0.034) ng/mL unknown) (unknown) (no (unknown) (unknown) Unstable angina (units (unknown) date) unknown) (unknown) (no (unknown) (unknown) Valvular heart (units (unknown) date) disease unknown) (unknown) (no (unknown) (unknown) Vital Signs - 8 hr (units (unknown) date) unknown) (unknown) (no (unknown) (unknown) Vital Signs (units (un known) date) unknown) (unknown) (no (unknown) (unknown) Vital signs: (units (u nknown) date) unknown) (unknown) (no (unknown) (unknown) WBC (4.5-11.0) (units (unknown) date) X103/uL unknown) (unknown) (no (unknown) (unknown) WBC 12.8 H (units (unk nown) date) (4.5-11.0) X103/uL unknown) (unknown) (no (unknown) (unknown) Katy Salazar, (units (unknown) date) 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 [Primary Care unknown) Provider] (unknown) (no (unknown) (unknown) XR chest 1V Stat (units (unknown) date) unknown) (unknown) (no (unknown) (unknown) XRay Report (units (un known) date) unknown) (unknown) (no (unknown) (unknown) Your renal function (units (unknown) date) was slightly unknown) elevated today follow up with your physician to (unknown) (no (unknown) (unknown) [Embedded Image (units (unknown) date) Not Available] unknown) (unknown) (no (unknown) (unknown) [From Bactrim] (units (unknown) date) unknown) (unknown) (no (unknown) (unknown) [From Trilipix] (units (unknown) date) Upset unknown) (unknown) (no (unknown) (unknown) acarbose Allergy (units (unknown) date) Intermediate unknown) Abdominal Verified 02/09/23 18:21 (unknown) (no (unknown) (unknown) albuterol 90 (units (u nknown) date) mcg/actuation unknown) Aerosol (unknown) (no (unknown) (unknown) albuterol 90 (units (u nknown) date) mcg/actuation unknown) aerosol 90 mcg inhalation PRN Shortness Of 07/24/22 (unknown) (no (unknown) (unknown) albuterol just (units (unknown) date) before arriving unknown) which he states has significantly improved her (unknown) (no (unknown) (unknown) alcohol intake (units (unknown) date) frequency: 0-2 unknown) drinks per day (unknown) (no (unknown) (unknown) alcohol intake: (units (unknown) date) never unknown) (unknown) (no (unknown) (unknown) alcohol, no (units (un known) date) illicit. 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 unknown) She notes it got better after she used her (unknown) (no (unknown) (unknown) and below (units (unkn own) date) unknown) (unknown) (no (unknown) (unknown) any new swelling (units (unknown) date) in her extremities. unknown) She states she went to the walk-in clinic (unknown) (no (unknown) (unknown) appear (units (unkno wn) date) unknown) (unknown) (no (unknown) (unknown) appears similar (units (unknown) date) with no acute or unknown) dynamic changes. (unknown) (no (unknown) (unknown) aspirin 81 MG (units ( unknown) date) tablet,delayed unknown) release (DR/EC) (unknown) (no (unknown) (unknown) aspirin 81 mg (units ( unknown) date) tablet,delayed 81 unknown) mg PO QDAY ##0 09/14/17 07/24/22 (unknown) (no (unknown) (unknown) atorvastatin 20 mg (units (unknown) date) tablet (Lipitor) 40 unknown) mg PO QPM 07/08/22 07/24/22 (unknown) (no (unknown) (unknown) atorvastatin (units (u nknown) date) [Lipitor] 20 mg unknown) tablet (unknown) (no (unknown) (unknown) because she could (units (unknown) date) not get a hold of unknown) her primary care at the manager service desk referral. (unknown) (no (unknown) (unknown) better when she (units (unknown) date) uses her inhaler. unknown) She tried to reach her physician was not able (unknown) (no (unknown) (unknown) bilaterally lower (units (unknown) date) extremities. unknown) Neurovascularly intact (unknown) (no (unknown) (unknown) budesonide [From (units (unknown) date) Symbicort] Allergy unknown) Mild Anxiety Verified 02/09/23 18:21 (unknown) (no (unknown) (unknown) but she is (units (unk nown) date) asymptomatic unknown) otherwise negative LFTs. Initial troponin is negative. (unknown) (no (unknown) (unknown) capsule,extended (units (unknown) date) release 24 hr unknown) (unknown) (no (unknown) (unknown) carvedilol Allergy (units (unknown) date) Mild Rash Verified unknown) 02/09/23 18:21 (unknown) (no (unknown) (unknown) changes. Troponin (units (unknown) date) is negative. unknown) (unknown) (no (unknown) (unknown) chest with (units (unk nown) date) exertion. She unknown) denies diaphoresis, she states it does seem to get (unknown) (no (unknown) (unknown) chlorthalidone (units (unknown) date) Allergy unknown) Intermediate Redness of Verified 02/09/23 18:21 (unknown) (no (unknown) (unknown) choline (units (unkno wn) date) fenofibrate Allergy unknown) Mild Gastrointestinal Verified 02/09/23 18:21 (unknown) (no (unknown) (unknown) clopidogrel 75 mg (units (unknown) date) tablet 75 mg PO QAM unknown) 07/24/22 07/24/22 (unknown) (no (unknown) (unknown) clopidogrel 75 mg (units (unknown) date) tablet unknown) (unknown) (no (unknown) (unknown) concerning (units (unk nown) date) symptoms. unknown) (unknown) (no (unknown) (unknown) cyclobenzaprine 10 (units (unknown) date) mg Tablet unknown) (unknown) (no (unknown) (unknown) cyclobenzaprine 10 (units (unknown) date) mg tablet 10 mg PO unknown) TID PRN Muscle Spasm 07/24/22 07/24/22 (unknown) (no (unknown) (unknown) denies any fevers, (units (unknown) date) no chills, no cold, unknown) cough or congestion she is had some more (unknown) (no (unknown) (unknown) diaphoretic with (units (unknown) date) it. No nausea no unknown) vomiting. No abdominal back or flank pain, (unknown) (no (unknown) (unknown) diltiazem HCl 120 (units (unknown) date) mg 120 mg PO QAM unknown) 07/08/22 07/24/22 (unknown) (no (unknown) (unknown) diltiazem HCl (units ( unknown) date) [Cartia XT] 120 mg unknown) capsule,extended release 24hr (unknown) (no (unknown) (unknown) does use Advair (units (unknown) date) twice daily, she unknown) states she typically uses her albuterol couple (unknown) (no (unknown) (unknown) doxazosin [From (units (unknown) date) Cardura] Allergy unknown) Intermediate Rash Verified 02/09/23 18:21 (unknown) (no (unknown) (unknown) doxycycline (units (un known) date) Allergy unknown) Intermediate Rash Verified 02/09/23 18:21 (unknown) (no (unknown) (unknown) elevated than her (units (unknown) date) usual, normal unknown) electrolytes no significant anemia, no (unknown) (no (unknown) (unknown) enlarged, stable. (units (unknown) date) Interstitial unknown) prominence is unchanged compared to the prior (unknown) (no (unknown) (unknown) evaluation. She (units (unknown) date) has a history unknown) significant for COPD on 2 L nasal cannula at all (unknown) (no (unknown) (unknown) extremities (units (un known) date) unknown) (unknown) (no (unknown) (unknown) flare. She is had (units (unknown) date) a little bit unknown) increased shortness of breath and heaviness in (unknown) (no (unknown) (unknown) formoterol [From (units (unknown) date) Symbicort] Allergy unknown) Mild Anxiety Verified 02/09/23 18:21 (unknown) (no (unknown) (unknown) frequent belching. (units (unknown) date) She states it is unknown) always substernal not radiating it is worse (unknown) (no (unknown) (unknown) frequently but (units (unknown) date) states no dysuria, unknown) urgency or other changes. Patient has not had (unknown) (no (unknown) (unknown) furosemide 40 mg (units (unknown) date) tablet 40 mg PO QAM unknown) 07/08/22 07/08/22 (unknown) (no (unknown) (unknown) furosemide 40 mg (units (unknown) date) tablet unknown) (unknown) (no (unknown) (unknown) gemfibrozil (units (un known) date) Allergy unknown) Intermediate Rash Verified 02/09/23 18:21 (unknown) (no (unknown) (unknown) guarding or (units (un known) date) rebound, rigidity, unknown) no mass (unknown) (no (unknown) (unknown) has some shortness (units (unknown) date) of breath, and does unknown) sometimes have a heavy feeling in her (unknown) (no (unknown) (unknown) her substernal (units (unknown) date) chest for the past unknown) 1-2 days and while walking at [employer] the (unknown) (no (unknown) (unknown) history. Initial (units (unknown) date) workup CBC, coags, unknown) CMP shows creatinine of 1.06 slightly (unknown) (no (unknown) (unknown) household members: (units (unknown) date) family and children unknown) (unknown) (no (unknown) (unknown) improved from the (units (unknown) date) 5000 range she was unknown) at previously. Repeat EKG show no acute (unknown) (no (unknown) (unknown) increasing (units (unk nown) date) frequency of use unknown) please start the prednisone script provided. (unknown) (no (unknown) (unknown) inhaler Breath (units (unknown) date) unknown) (unknown) (no (unknown) (unknown) inhaler. She did (units (unknown) date) stop her prednisone unknown) on February 06. Patient states she always (unknown) (no (unknown) (unknown) ipratropium 0.5 (units (unknown) date) mg-albuterol 3 mg unknown) ml inhalation PRN Shortness Of 07/24/22 (unknown) (no (unknown) (unknown) ipratropium-albute (units (unknown) date) rol 0.5 mg-3 mg(2.5 unknown) mg base)/3 mL solution for nebulization (unknown) (no (unknown) (unknown) isosorbide (units (unk nown) date) mononitrate 120 mg unknown) 120 mg PO QAM 07/08/22 07/24/22 (unknown) (no (unknown) (unknown) isosorbide (units (unk nown) date) mononitrate 120 mg unknown) tablet extended release 24 hr (unknown) (no (unknown) (unknown) leukocytosis, (units ( unknown) date) bilirubin slightly unknown) elevated 2.7 has been intermittently elevated (unknown) (no (unknown) (unknown) levofloxacin (units (u nknown) date) Allergy unknown) Intermediate Rash Verified 02/09/23 18:21 (unknown) (no (unknown) (unknown) levothyroxine 88 (units (unknown) date) mcg tablet 88 mcg unknown) PO QAM 07/08/22 07/24/22 (unknown) (no (unknown) (unknown) levothyroxine 88 (units (unknown) date) mcg tablet unknown) (unknown) (no (unknown) (unknown) lightheadedness or (units (unknown) date) passing out, unknown) swelling in her extremities or other new or (unknown) (no (unknown) (unknown) likely chronic.? (units (unknown) date) unknown) (unknown) (no (unknown) (unknown) lisinopril 40 mg (units (unknown) date) tablet 20 mg PO QAM unknown) 07/08/22 07/24/22 (unknown) (no (unknown) (unknown) lisinopril 40 mg (units (unknown) date) tablet unknown) (unknown) (no (unknown) (unknown) losartan Allergy (units (unknown) date) Intermediate Rash unknown) Verified 02/09/23 18:21 (unknown) (no (unknown) (unknown) make sure it is (units (unknown) date) not continuing to unknown) increase. (unknown) (no (unknown) (unknown) metoprolol AdvReac (units (unknown) date) Intermediate unknown) Verified 02/09/23 18:21 (unknown) (no (unknown) (unknown) metoprolol (units (unk nown) date) succinate 25 mg 25 unknown) mg PO DAILY 07/24/22 07/24/22 (unknown) (no (unknown) (unknown) metoprolol (units (unk nown) date) succinate 25 mg unknown) tablet extended release 24 hr (unknown) (no (unknown) (unknown) moist mucous (units (u nknown) date) membranes unknown) (unknown) (no (unknown) (unknown) montelukast [From (units (unknown) date) Singulair] Allergy unknown) Intermediate Difficulty Verified 02/09/23 (unknown) (no (unknown) (unknown) morning (units (unkno wn) date) unknown) (unknown) (no (unknown) (unknown) multiple (units (unkno wn) date) allergies. She unknown) smoked for about 17 years quitting in the 70s. No (unknown) (no (unknown) (unknown) multivitamin 1 tab (units (unknown) date) PO DAILY 09/10/18 unknown) 07/24/22 (unknown) (no (unknown) (unknown) multivitamin (units (u nknown) date) Tablet,Chewable unknown) (unknown) (no (unknown) (unknown) nifedipine Allergy (units (unknown) date) Intermediate Chills unknown) Verified 02/09/23 18:21 (unknown) (no (unknown) (unknown) nitroglycerin 0.4 (units (unknown) date) mg sublingual 0.4 unknown) mg sublingual Q5-15M PRN Chest 09/10/18 (unknown) (no (unknown) (unknown) nitroglycerin (units ( unknown) date) [Nitrostat] 0.4 mg unknown) Tablet, Sublingual (unknown) (no (unknown) (unknown) no issues with (units (unknown) date) bowel movements. unknown) She is on water pills so she urinates (unknown) (no (unknown) (unknown) omega (units (unkno wn) date) 6-ssu-esi-fish oil unknown) 1,000 mg 1,000 mg PO DAILY 09/10/18 07/24/22 (unknown) (no (unknown) (unknown) omega (units (unkno wn) date) 2-epa-jyb-fish oil unknown) [Fish Oil] 1,000 mg (120 mg-180 mg) Capsule (unknown) (no (unknown) (unknown) other day while (units (unknown) date) shopping felt a unknown) little bit more heaviness. 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 unknown) d/c 07/14/22 (unknown) (no (unknown) (unknown) release (units (unkno wn) date) unknown) (unknown) (no (unknown) (unknown) she forgets to use (units (unknown) date) her inhaler unknown) frequently and has not been using that. She (unknown) (no (unknown) (unknown) soln (units (unkno wn) date) unknown) (unknown) (no (unknown) (unknown) statin medication (units (unknown) date) for hypothyroidism, unknown) blood pressure. Patient states she has (unknown) (no (unknown) (unknown) study and is (units (u nknown) date) unknown) (unknown) (no (unknown) (unknown) sulfamethoxazole (units (unknown) date) Allergy unknown) Intermediate Rash Verified 02/09/23 18:21 (unknown) (no (unknown) (unknown) symptoms are more (units (unknown) date) secondary to her unknown) airway disease. (unknown) (no (unknown) (unknown) symptoms. She (units ( unknown) date) denies any symptoms unknown) currently. Patient does have a cardiac (unknown) (no (unknown) (unknown) tablet (Nitrostat) (units (unknown) date) Pain unknown) (unknown) (no (unknown) (unknown) tablet,extended (units (unknown) date) release 24 hr unknown) (unknown) (no (unknown) (unknown) tachypnea. Speaks (units (unknown) date) in full sentences. unknown) Easy work of breathing. (unknown) (no (unknown) (unknown) times a week but (units (unknown) date) typically also unknown) forgets to use it. She is on aspirin, Plavix, (unknown) (no (unknown) (unknown) times, CABG, CHF (units (unknown) date) she is on her unknown) Advair b.i.d., she has stopped prednisone on the (unknown) (no (unknown) (unknown) to see them was (units (unknown) date) referred to the unknown) walk-in clinic who sent her here for (unknown) (no (unknown) (unknown) tobacco type: (units ( unknown) date) cigarettes unknown) (unknown) (no (unknown) (unknown) torsemide 20 mg (units (unknown) date) Tablet unknown) (unknown) (no (unknown) (unknown) torsemide 20 mg (units (unknown) date) tablet 20 mg PO unknown) DAILY 07/24/22 07/24/22 (unknown) (no (unknown) (unknown) trimethoprim [From (units (unknown) date) Bactrim] Allergy unknown) Intermediate Rash Verified 02/09/23 18:21 (unknown) (no (unknown) (unknown) unremarkable.? (units (unknown) date) unknown) (unknown) (no (unknown) (unknown) vitamin E 268 mg (units (unknown) date) (400 unit) capsule unknown) 400 unit PO DAILY 09/10/18 07/24/22 (unknown) (no (unknown) (unknown) vitamin E 400 unit (units (unknown) date) Capsule unknown) (unknown) (no (unknown) (unknown) weekly. Her (units (un known) date) primary care is unknown) Katy Salazar. She has not been following (unknown) (no (unknown) (unknown) with exertion she (units (unknown) date) has a little bit unknown) more shortness of breath. She does not get (unknown) (no (unknown) (unknown) with pulmonology (units (unknown) date) regularly but has unknown) been seen, she sees cardiology. Result panel [id number] (unknown) (no date) (unknown) (unknown) Negative (units (unkn own) unknown) (unknown) (no date) (unknown) (unknown) Negative (units (unkn own) unknown) Result panel [id number] (unknown) (no (unknown) (unknown) (no value) (units (unk nown) date) unknown) (unknown) (no (unknown) (unknown) <Electronically (units (unknown) date) signed by Glo Hernandez unknown) Esperanza Vela> (unknown) (no (unknown) (unknown) (120 mg-180 mg) (units (unknown) date) capsule (Fish Oil) unknown) (unknown) (no (unknown) (unknown) (2.5 mg base)/3 mL (units (unknown) date) nebulization Breath unknown) Or Wheezing (unknown) (no (unknown) (unknown) (Cartia XT) (units (un known) date) unknown) (unknown) (no (unknown) (unknown) 0.4 mg SUBLINGUAL (units (unknown) date) Q5-15M PRN (Reason: unknown) Chest Pain) (unknown) (no (unknown) (unknown) [id number] (units (unkno wn) date) unknown) (unknown) (no (unknown) (unknown) 02/09/23 02/09/23 (units (unknown) date) 02/09/23 unknown) Range/Units (unknown) (no (unknown) (unknown) 02/09/23 18:30 (units (unknown) date) unknown) (unknown) (no (unknown) (unknown) 02/09/23 21:00 (units (unknown) date) unknown) (unknown) (no (unknown) (unknown) 02/09/23 (units (unkno wn) date) unknown) (unknown) (no (unknown) (unknown) 02/10/23 0534 (units ( unknown) date) unknown) (unknown) (no (unknown) (unknown) 07/24/22 (units (unkno wn) date) unknown) (unknown) (no (unknown) (unknown) 1 tab PO DAILY (units (unknown) date) unknown) (unknown) (no (unknown) (unknown) 1,000 mg PO DAILY (units (unknown) date) unknown) (unknown) (no (unknown) (unknown) 1. No acute (units (un known) date) cardiopulmonary unknown) abnormality. (unknown) (no (unknown) (unknown) 10 mg PO TID PRN (units (unknown) date) (Reason: Muscle unknown) Spasm) (unknown) (no (unknown) (unknown) 10 ml PO PRN (units (u nknown) date) (Reason: Cough) unknown) (unknown) (no (unknown) (unknown) 10-100mg/5ml (units (u nknown) date) liquid. take 10ml unknown) by mouth every 4 hrs as needed for cough (unknown) (no (unknown) (unknown) 06 of February she (units (unknown) date) is not wheezy unknown) initially on exam but had used 2 puffs of her (unknown) (no (unknown) (unknown) 120 mg PO QAM (units ( unknown) date) unknown) (unknown) (no (unknown) (unknown) [id number] 21 [place] (units (unknown) date) unknown) (unknown) (no (unknown) (unknown) 18:21 (units (unkno wn) date) unknown) (unknown) (no (unknown) (unknown) 18:30 18:30 18:30 (units (unknown) date) unknown) (unknown) (no (unknown) (unknown) 18:30 20:30 21:00 (units (unknown) date) unknown) (unknown) (no (unknown) (unknown) 2. Stable (units (unkn own) date) cardiomegaly.? unknown) (unknown) (no (unknown) (unknown) 20 mg PO DAILY (units (unknown) date) unknown) (unknown) (no (unknown) (unknown) 20 mg PO QAM (units (u nknown) date) unknown) (unknown) (no (unknown) (unknown) 21:40 (units (unkno wn) date) unknown) (unknown) (no (unknown) (unknown) 25 mg PO DAILY (units (unknown) date) unknown) (unknown) (no (unknown) (unknown) 40 mg PO QAM (units (u nknown) date) unknown) (unknown) (no (unknown) (unknown) 40 mg PO QPM (units (u nknown) date) unknown) (unknown) (no (unknown) (unknown) 400 unit PO DAILY (units (unknown) date) unknown) (unknown) (no (unknown) (unknown) 74 [place] 172 QRS of (units (unknown) date) 158 QTC of 479. unknown) Patient does have Q-wave in lead 3 and AVF. (unknown) (no (unknown) (unknown) 75 mg PO QAM (units (u nknown) date) unknown) (unknown) (no (unknown) (unknown) 81 mg PO QDAY Qty: (units (unknown) date) 0 unknown) (unknown) (no (unknown) (unknown) 88 mcg PO QAM (units ( unknown) date) unknown) (unknown) (no (unknown) (unknown) 90 mcg INHALATION (units (unknown) date) PRN (Reason: unknown) Shortness Of Breath) (unknown) (no (unknown) (unknown) ? (units (unkno wn) date) unknown) (unknown) (no (unknown) (unknown) ABDOMEN: Soft, (units (unknown) date) nontender. unknown) Normoactive bowel sounds all 4 quadrants. No (unknown) (no (unknown) (unknown) ALT (<35) IU/L (units (unknown) date) unknown) (unknown) (no (unknown) (unknown) ALT 22 (<35) IU/L (units (unknown) date) unknown) (unknown) (no (unknown) (unknown) APTT (26-36) (units (u nknown) date) SECONDS unknown) (unknown) (no (unknown) (unknown) APTT 30 (26-36) (units (unknown) date) SECONDS unknown) (unknown) (no (unknown) (unknown) AST (14-36) IU/L (units (unknown) date) unknown) (unknown) (no (unknown) (unknown) AST 28 (14-36) (units (unknown) date) IU/L unknown) (unknown) (no (unknown) (unknown) Accession Number: (units (unknown) date) [id number] ?? unknown) (unknown) (no (unknown) (unknown) Acct:[id number] (units (unknown) date) unknown) (unknown) (no (unknown) (unknown) Activity (units (unkno wn) date) Restrictions/Additi unknown) onal Instructions: (unknown) (no (unknown) (unknown) Acute exacerbation (units (unknown) date) of chronic unknown) obstructive pulmonary disease (unknown) (no (unknown) (unknown) Age/Sex: 87 / F (units (unknown) date) unknown) (unknown) (no (unknown) (unknown) Albumin (3.5-5.0) (units (unknown) date) g/dL unknown) (unknown) (no (unknown) (unknown) Albumin 4.1 (units (un known) date) (3.5-5.0) g/dL unknown) (unknown) (no (unknown) (unknown) Albumin/Globulin (units (unknown) date) Ratio (1.0-2.8) unknown) (unknown) (no (unknown) (unknown) Albumin/Globulin (units (unknown) date) Ratio 1.3 (1.0-2.8) unknown) (unknown) (no (unknown) (unknown) Alkaline (units (unkno wn) date) Phosphatase unknown) (38-126) U/L (unknown) (no (unknown) (unknown) Alkaline (units (unkno wn) date) Phosphatase 76 unknown) (38-126) U/L (unknown) (no (unknown) (unknown) Allergies (units (unkn own) date) unknown) (unknown) (no (unknown) (unknown) Allergy/AdvReac (units (unknown) date) Type Severity unknown) Reaction Status Date / Time (unknown) (no (unknown) (unknown) JENN Lopez (units ( unknown) date) [id number] unknown) (unknown) (no (unknown) (unknown) 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 (unknown) (no (unknown) (unknown) Aspirin (Aspirin (units (unknown) date) 81 Mg Chew Tab) 324 unknown) mg PO NOW ONE (unknown) (no (unknown) (unknown) Attestation: I (units (unknown) date) personally reviewed unknown) and interpreted this ECG as follows: (unknown) (no (unknown) (unknown) BUN (7-17) mg/dL (units (unknown) date) unknown) (unknown) (no (unknown) (unknown) BUN 26 H (7-17) (units (unknown) date) mg/dL unknown) (unknown) (no (unknown) (unknown) BUN/Creatinine (units (unknown) date) Ratio (6-22) unknown) (unknown) (no (unknown) (unknown) BUN/Creatinine (units (unknown) date) Ratio 24.5 H (6-22) unknown) (unknown) (no (unknown) (unknown) Baso # (Auto) (units ( unknown) date) (0-100) /uL unknown) (unknown) (no (unknown) (unknown) Baso # (Auto) 100 (units (unknown) date) (0-100) /uL unknown) (unknown) (no (unknown) (unknown) Baso % (Auto) (units ( unknown) date) (0-2) % unknown) (unknown) (no (unknown) (unknown) Baso % (Auto) 0.4 (units (unknown) date) (0-2) % unknown) (unknown) (no (unknown) (unknown) 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 No unknown) suspicious bony lesions.? Overlying soft tissues (unknown) (no (unknown) (unknown) Breathing (units (unkn own) date) unknown) (unknown) (no (unknown) (unknown) CABG, CHF, (units (unk nown) date) hypertension, unknown) dyslipidemia anticoagulated on aspirin and Plavix. (unknown) (no (unknown) (unknown) 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) unknown) (unknown) (no (unknown) (unknown) CARDIOVASCULAR: (units (unknown) date) Regular rate and unknown) rhythm without murmurs, rubs or gallops. No (unknown) (no (unknown) (unknown) CK-MB (CK-2) Rel (units (unknown) date) Index TNP unknown) (unknown) (no (unknown) (unknown) CK-MB (CK-2) Rel (units (unknown) date) Index unknown) (unknown) (no (unknown) (unknown) CK-MB (CK-2) TNP (units (unknown) date) unknown) (unknown) (no (unknown) (unknown) CK-MB (CK-2) (units (u nknown) date) unknown) (unknown) (no (unknown) (unknown) COMPARISON:? (units (u nknown) date) [facility], unknown) CR, XR CHEST 1V, 12/06/2022, 13:21. 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 unknown) BNP is elevated in the 2000 range but is (unknown) (no (unknown) (unknown) Chest x-ray: (units (u nknown) date) unknown) (unknown) (no (unknown) (unknown) Chief Complaint: (units (unknown) date) Chest Pain unknown) (unknown) (no (unknown) (unknown) Chloride (98-107) (units (unknown) date) mmol/L unknown) (unknown) (no (unknown) (unknown) Chloride 95 L (units ( unknown) date) (98-107) mmol/L unknown) (unknown) (no (unknown) (unknown) Clinical (units (unkno wn) date) Impression: unknown) (unknown) (no (unknown) (unknown) Continue to use (units (unknown) date) her albuterol you unknown) can do 2 puffs every 4 hours as needed. (unknown) (no (unknown) (unknown) Continue your home (units (unknown) date) medications as unknown) prescribed. (unknown) (no (unknown) (unknown) Course (units (unkno wn) date) unknown) (unknown) (no (unknown) (unknown) Creatinine (units (unk nown) date) (0.52-1.04) mg/dL unknown) (unknown) (no (unknown) (unknown) Creatinine 1.06 H (units (unknown) date) (0.52-1.04) mg/dL unknown) (unknown) (no (unknown) (unknown) : 1935 (units (unknown) date) Acct:[id number] unknown) (unknown) (no (unknown) (unknown) : 1935 (units (unknown) date) unknown) (unknown) (no (unknown) (unknown) Date of Service: (units (unknown) date) 02/09/23 unknown) (unknown) (no (unknown) (unknown) Departure (units (unkn own) date) unknown) (unknown) (no (unknown) (unknown) Dictated by: (units (u nknown) date) ramona Contreras M.D. on 02/09/2023 at 19:57 ? ? (unknown) (no (unknown) (unknown) Discharge Plan (units (unknown) date) unknown) (unknown) (no (unknown) (unknown) Discontinued (units (u nknown) date) Medications unknown) (unknown) (no (unknown) (unknown) Discussed with (units (unknown) date) patient she does unknown) have cardiac risk factors but I suspect her (unknown) (no (unknown) (unknown) Documented By: KLS (units (unknown) date) unknown) (unknown) (no (unknown) (unknown) ECG Data (units (unkno wn) date) unknown) (unknown) (no (unknown) (unknown) ED Orders (units (unkn own) date) unknown) (unknown) (no (unknown) (unknown) EKG2/sinus rhythm, (units (unknown) date) premature atrial unknown) complex, right bundle-branch, LVH. Rate of (unknown) (no (unknown) (unknown) ER Physician: (units ( unknown) date) Glo Vela D.O. unknown) (unknown) (no (unknown) (unknown) EXTREMITIES: (units (u nknown) date) Normal range of unknown) motion, no clubbing or edema. 2+ pulses (unknown) (no (unknown) (unknown) Elevated TSH (units (u nknown) date) unknown) (unknown) (no (unknown) (unknown) Emergency Report (units (unknown) date) unknown) (unknown) (no (unknown) (unknown) Eos # (Auto) (units (u nknown) date) (0-450) /uL unknown) (unknown) (no (unknown) (unknown) Eos # (Auto) 100 (units (unknown) date) (0-450) /uL unknown) (unknown) (no (unknown) (unknown) Eos % (Auto) (2-4) (units (unknown) date) % unknown) (unknown) (no (unknown) (unknown) Eos % (Auto) 0.9 L (units (unknown) date) (2-4) % unknown) (unknown) (no (unknown) (unknown) Estimated GFR (units ( unknown) date) (>60) mL/min unknown) (unknown) (no (unknown) (unknown) Estimated GFR 51 L (units (unknown) date) (>60) mL/min unknown) (unknown) (no (unknown) (unknown) Exam Narrative: (units (unknown) date) unknown) (unknown) (no (unknown) (unknown) Exam (units (unkno wn) date) unknown) (unknown) (no (unknown) (unknown) FINDINGS:? (units (unk nown) date) unknown) (unknown) (no (unknown) (unknown) Family History (units (unknown) date) (Reviewed 02/09/23 unknown) @ 19:35 by Glo Vela DO) (unknown) (no (unknown) (unknown) Father Lung cancer (units (unknown) date) unknown) (unknown) (no (unknown) (unknown) Flonase 50 mcg (units (unknown) date) unknown) (unknown) (no (unknown) (unknown) Flonase PRN Dry (units (unknown) date) Nasal Passages unknown) 07/24/22 (unknown) (no (unknown) (unknown) GENERAL: Alert and (units (unknown) date) oriented x three, unknown) elderly female in no acute distress. (unknown) (no (unknown) (unknown) : No CVA (units (unk nown) date) tenderness unknown) (unknown) (no (unknown) (unknown) General (units (unkno wn) date) unknown) (unknown) (no (unknown) (unknown) Globulin (1.7-4.1) (units (unknown) date) g/dL unknown) (unknown) (no (unknown) (unknown) Globulin 3.2 (units (u nknown) date) (1.7-4.1) g/dL unknown) (unknown) (no (unknown) (unknown) Glucose (80-110) (units (unknown) date) mg/dL unknown) (unknown) (no (unknown) (unknown) Glucose 167 H (units ( unknown) date) (80-110) mg/dL unknown) (unknown) (no (unknown) (unknown) H/O hysterectomy (units (unknown) date) with oophorectomy unknown) (unknown) (no (unknown) (unknown) 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 (unknown) (no (unknown) (unknown) HEENT: Head (units (un known) date) normocephalic, unknown) atraumatic, EOMI, pupils reactive, face symmetric, (unknown) (no (unknown) (unknown) HPI - Chest Pain (units (unknown) date) unknown) (unknown) (no (unknown) (unknown) HPI narrative: (units (unknown) date) unknown) (unknown) (no (unknown) (unknown) HTN (hypertension) (units (unknown) date) unknown) (unknown) (no (unknown) (unknown) Hct (36-46) % (units ( unknown) date) unknown) (unknown) (no (unknown) (unknown) Hct 41.3 (36-46) % (units (unknown) date) unknown) (unknown) (no (unknown) (unknown) Hgb (12.0-16.0) (units (unknown) date) g/dL unknown) (unknown) (no (unknown) (unknown) Hgb 13.8 (units (unkno wn) date) (12.0-16.0) g/dL unknown) (unknown) (no (unknown) (unknown) History of Present (units (unknown) date) Illness unknown) (unknown) (no (unknown) (unknown) Home Medications (units (unknown) date) unknown) (unknown) (no (unknown) (unknown) Hx of heart artery (units (unknown) date) stent unknown) (unknown) (no (unknown) (unknown) Hyperlipidemia (units (unknown) date) unknown) (unknown) (no (unknown) (unknown) IMPRESSION:? (units (u nknown) date) unknown) (unknown) (no (unknown) (unknown) INDICATIONS:? (units ( unknown) date) chest pain unknown) (unknown) (no (unknown) (unknown) INHALATION PRN (units (unknown) date) (Reason: Shortness unknown) Of Breath Or Wheezing) (unknown) (no (unknown) (unknown) INR (0.9-1.3) (units ( unknown) date) unknown) (unknown) (no (unknown) (unknown) INR 1.1 (0.9-1.3) (units (unknown) date) unknown) (unknown) (no (unknown) (unknown) If you are needing (units (unknown) date) to use your unknown) albuterol more than 1 or 2 times daily or have (unknown) (no (unknown) (unknown) Imaging Data (units (u nknown) date) unknown) (unknown) (no (unknown) (unknown) Initial Vital (units ( unknown) date) Signs unknown) (unknown) (no (unknown) (unknown) Initial Vital (units ( unknown) date) Signs: unknown) (unknown) (no (unknown) (unknown) Instructions: (units ( unknown) date) Chronic Obstructive unknown) Pulmonary Disease (Alternative Therapy) (unknown) (no (unknown) (unknown) Interpretation: (units (unknown) date) unknown) (unknown) (no (unknown) (unknown) [facility] (units (unknown) date) [address] [place] [address] unknown) [place] [address] (unknown) (no (unknown) (unknown) [facility] (units (unknown) date) unknown) (unknown) (no (unknown) (unknown) JVD. No swelling (units (unknown) date) bilateral lower unknown) extremities. (unknown) (no (unknown) (unknown) Lab Data (units (unkno wn) date) unknown) (unknown) (no (unknown) (unknown) Lab Results (units (un known) date) unknown) (unknown) (no (unknown) (unknown) Labs: (units (unkno wn) date) unknown) (unknown) (no (unknown) (unknown) Last Admin: (units (un known) date) 02/09/23 19:28 unknown) Dose: Not Given (unknown) (no (unknown) (unknown) Lateral leads this (units (unknown) date) appears similar to unknown) today's earlier EKG and prior. (unknown) (no (unknown) (unknown) Limitations: no (units (unknown) date) limitations unknown) (unknown) (no (unknown) (unknown) Lipase (23-300) (units (unknown) date) U/L unknown) (unknown) (no (unknown) (unknown) Lipase 45 (23-300) (units (unknown) date) U/L unknown) (unknown) (no (unknown) (unknown) Loc: ED (units (unkno wn) date) unknown) (unknown) (no (unknown) (unknown) Lungs and pleura:? (units (unknown) date) Lungs are clear.? unknown) No pleural effusions or pneumothorax.? (unknown) (no (unknown) (unknown) Lymph # (Auto) (units (unknown) date) (3201-4168) /uL unknown) (unknown) (no (unknown) (unknown) Lymph # (Auto) (units (unknown) date) 1200 (3053-6933) unknown) /uL (unknown) (no (unknown) (unknown) Lymph % (Auto) (units (unknown) date) (25-40) % unknown) (unknown) (no (unknown) (unknown) Lymph % (Auto) 9.2 (units (unknown) date) L (25-40) % unknown) (unknown) (no (unknown) (unknown) MCH (26-34) PG (units (unknown) date) unknown) (unknown) (no (unknown) (unknown) MCH 28.7 (26-34) (units (unknown) date) PG unknown) (unknown) (no (unknown) (unknown) MCHC (30-36) % (units (unknown) date) unknown) (unknown) (no (unknown) (unknown) MCHC 33.6 (30-36) (units (unknown) date) % unknown) (unknown) (no (unknown) (unknown) MCV (80-100) fL (units (unknown) date) unknown) (unknown) (no (unknown) (unknown) MCV 85.4 (80-100) (units (unknown) date) fL unknown) (unknown) (no (unknown) (unknown) MDM - Chest Pain (units (unknown) date) unknown) (unknown) (no (unknown) (unknown) MDM Narrative (units ( unknown) date) unknown) (unknown) (no (unknown) (unknown) MR#: [id number] (units (unknown) date) unknown) (unknown) (no (unknown) (unknown) Magnesium (units (unkn own) date) (1.6-2.3) mg/dL unknown) (unknown) (no (unknown) (unknown) Magnesium 1.9 (units ( unknown) date) (1.6-2.3) mg/dL unknown) (unknown) (no (unknown) (unknown) Mediastinum:? (units (u nknown) date) Normal mediastinal unknown) contours.? The aorta is tortuous.? The heart is (unknown) (no (unknown) (unknown) Medical History (units (unknown) date) (Updated 02/09/23 @ unknown) 21:15 by Glo Vela DO) (unknown) (no (unknown) (unknown) Medical decision (units (unknown) date) making narrative: unknown) (unknown) (no (unknown) (unknown) Medication (units (unk nown) date) Instructions unknown) Recorded Confirmed (unknown) (no (unknown) (unknown) Medication (units (unk nown) date) Instructions unknown) Recorded (unknown) (no (unknown) (unknown) Mode of arrival: (units (unknown) date) Ambulatory unknown) (unknown) (no (unknown) (unknown) Trigg # (Auto) (units ( unknown) date) (0-900) /uL unknown) (unknown) (no (unknown) (unknown) Trigg # (Auto) 700 (units (unknown) date) (0-900) /uL unknown) (unknown) (no (unknown) (unknown) Trigg % (Auto) (units ( unknown) date) (3-14) % unknown) (unknown) (no (unknown) (unknown) Trigg % (Auto) 5.1 (units (unknown) date) (3-14) % unknown) (unknown) (no (unknown) (unknown) Mother COPD (units (un known) date) (chronic unknown) obstructive pulmonary disease) (unknown) (no (unknown) (unknown) NECK: Supple, full (units (unknown) date) range of motion unknown) (unknown) (no (unknown) (unknown) NEUROLOGICAL: (units ( unknown) date) Cranial nerves II unknown) through XII grossly intact. Moving all (unknown) (no (unknown) (unknown) NT-Pro-B Natriuret (units (unknown) date) Pep (<450) pg/mL unknown) (unknown) (no (unknown) (unknown) NT-Pro-B Natriuret (units (unknown) date) Pep 2300 H (<450) unknown) pg/mL (unknown) (no (unknown) (unknown) Narrative (units (unkn own) date) unknown) (unknown) (no (unknown) (unknown) Neut # (Auto) (units ( unknown) date) (3228-3419) /uL unknown) (unknown) (no (unknown) (unknown) Neut # (Auto) (units ( unknown) date) 74655 H (1317-3955) unknown) /uL (unknown) (no (unknown) (unknown) Neut % (Auto) (units ( unknown) date) (50-75) % unknown) (unknown) (no (unknown) (unknown) Neut % (Auto) 84.4 (units (unknown) date) H (50-75) % unknown) (unknown) (no (unknown) (unknown) New (units (unkno wn) date) unknown) (unknown) (no (unknown) (unknown) No Action (units (unkn own) date) unknown) (unknown) (no (unknown) (unknown) Ordered: (units (unkno wn) date) unknown) (unknown) (no (unknown) (unknown) Ordering Provider: (units (unknown) date) Glo Vela D.O. unknown) (unknown) (no (unknown) (unknown) Orders (units (unkno wn) date) unknown) (unknown) (no (unknown) (unknown) Oxygen Delivery (units (unknown) date) Method Nasal unknown) Cannula (unknown) (no (unknown) (unknown) Oxygen Delivery (units (unknown) date) Method Room Air unknown) 02/09/23 18:15 (unknown) (no (unknown) (unknown) Oxygen Flow Rate 2 (units (unknown) date) unknown) (unknown) (no (unknown) (unknown) PRN (Reason: Dry (units (unknown) date) Nasal Passages) unknown) (unknown) (no (unknown) (unknown) PROCEDURE:? XR (units (unknown) date) CHEST 1V unknown) (unknown) (no (unknown) (unknown) PT (10.1-12.7) (units (unknown) date) SECONDS unknown) (unknown) (no (unknown) (unknown) PT 12.8 H (units (unkn own) date) (10.1-12.7) SECONDS unknown) (unknown) (no (unknown) (unknown) Pain (units (unkno wn) date) unknown) (unknown) (no (unknown) (unknown) Patient Comments: (units (unknown) date) unknown) (unknown) (no (unknown) (unknown) Patient (units (unkno wn) date) Disposition: Home unknown) (unknown) (no (unknown) (unknown) Patient History (units (unknown) date) unknown) (unknown) (no (unknown) (unknown) Patient has sinus (units (unknown) date) rhythm occasional unknown) PVC, right bundle-branch, LVH, patient has (unknown) (no (unknown) (unknown) Patient states (units (unknown) date) that she had unknown) stopped her prednisone on the after a recent (unknown) (no (unknown) (unknown) Patient: (units (unkno wn) date) Roselyn Mejia unknown) MR#: [id number] (unknown) (no (unknown) (unknown) Patient: (units (unkno wn) date) Roselyn Mejia unknown) (unknown) (no (unknown) (unknown) Please follow-up (units (unknown) date) for recheck. unknown) (unknown) (no (unknown) (unknown) Please return for (units (unknown) date) new or worsening unknown) chest pain or pressure, shortness of breath, (unknown) (no (unknown) (unknown) Plt Count (units (unkn own) date) (150-400) X103/uL unknown) (unknown) (no (unknown) (unknown) Plt Count 244 (units ( unknown) date) (150-400) X103/uL unknown) (unknown) (no (unknown) (unknown) Potassium (units (unkn own) date) (3.4-5.1) mmol/L unknown) (unknown) (no (unknown) (unknown) Potassium 4.0 (units ( unknown) date) (3.4-5.1) mmol/L unknown) (unknown) (no (unknown) (unknown) Prescription sent (units (unknown) date) to [facility] unknown) [place]. (unknown) (no (unknown) (unknown) Prescriptions: (units (unknown) date) unknown) (unknown) (no (unknown) (unknown) Previous Rx's (units ( unknown) date) unknown) (unknown) (no (unknown) (unknown) Prior ECG (units (unkn own) date) tracings: available unknown) for review (unknown) (no (unknown) (unknown) Procedure: XR (units ( unknown) date) chest 1V unknown) (unknown) (no (unknown) (unknown) Pulse Oximetry 96 (units (unknown) date) 02/09/23 18:15 unknown) (unknown) (no (unknown) (unknown) Pulse Oximetry 97 (units (unknown) date) unknown) (unknown) (no (unknown) (unknown) Pulse Rate 75 (units ( unknown) date) unknown) (unknown) (no (unknown) (unknown) Pulse Rate 84 (units ( unknown) date) 02/09/23 18:15 unknown) (unknown) (no (unknown) (unknown) Q-waves 3 and AVF. (units (unknown) date) Lateral leads. unknown) Patient has EKG from 12/06/2022 which (unknown) (no (unknown) (unknown) RBC (4.0-5.2) (units ( unknown) date) X106/uL unknown) (unknown) (no (unknown) (unknown) RBC 4.83 (4.0-5.2) (units (unknown) date) X106/uL unknown) (unknown) (no (unknown) (unknown) RDW (11.6-14.8) % (units (unknown) date) unknown) (unknown) (no (unknown) (unknown) RDW 16.3 H (units (unk nown) date) (11.6-14.8) % unknown) (unknown) (no (unknown) (unknown) RESPIRATORY: (units (u nknown) date) Breath sounds equal unknown) bilaterally, no wheezes rales or rhonchi. No (unknown) (no (unknown) (unknown) ROS Unobtainable: (units (unknown) date) All systems unknown) reviewed + are unremarkable except as noted in HPI (unknown) (no (unknown) (unknown) Radiologist's (units ( unknown) date) Impression: unknown) (unknown) (no (unknown) (unknown) Referrals: (units (unk nown) date) unknown) (unknown) (no (unknown) (unknown) Related Data (units (u nknown) date) unknown) (unknown) (no (unknown) (unknown) Respiratory Rate (units (unknown) date) 18 unknown) (unknown) (no (unknown) (unknown) Respiratory Rate (units (unknown) date) 20 02/09/23 18:15 unknown) (unknown) (no (unknown) (unknown) Review of Systems (units (unknown) date) unknown) (unknown) (no (unknown) (unknown) Robitussin DM To (units (unknown) date) Go 10 ml PO PRN unknown) Cough 07/24/22 (unknown) (no (unknown) (unknown) Robitussin DM To (units (unknown) date) Go unknown) (unknown) (no (unknown) (unknown) Rx Instructions: (units (unknown) date) unknown) (unknown) (no (unknown) (unknown) SARS-CoV-2 (PCR) (units (unknown) date) (Negative) unknown) (unknown) (no (unknown) (unknown) SARS-CoV-2 (PCR) (units (unknown) date) Negative (Negative) unknown) (unknown) (no (unknown) (unknown) SKIN: Warm, dry, (units (unknown) date) no petechiae, no unknown) rashes or lesions. (unknown) (no (unknown) (unknown) See Rx (units (unkno wn) date) Instructions .ROUTE unknown) .COMPLEX Qty: 21 0RF (unknown) (no (unknown) (unknown) She took took (units ( unknown) date) puffs on the way unknown) over here and it helped her symptoms. Patient (unknown) (no (unknown) (unknown) Signed By: (units (unk nown) date) unknown) (unknown) (no (unknown) (unknown) Signed (units (unkno wn) date) unknown) (unknown) (no (unknown) (unknown) Skin (units (unkno wn) date) unknown) (unknown) (no (unknown) (unknown) Smoking Status: (units (unknown) date) Former smoker unknown) (unknown) (no (unknown) (unknown) Social History (units (unknown) date) (Reviewed 02/09/23 unknown) @ 19:35 by Glo Vela DO) (unknown) (no (unknown) (unknown) Sodium (137-145) (units (unknown) date) mmol/L unknown) (unknown) (no (unknown) (unknown) Sodium 135 L (units (u nknown) date) (137-145) mmol/L unknown) (unknown) (no (unknown) (unknown) Source: patient (units (unknown) date) unknown) (unknown) (no (unknown) (unknown) Stand Alone Forms: (units (unknown) date) Patient Portal/API unknown) (unknown) (no (unknown) (unknown) Stated Complaint: (units (unknown) date) has COPD, sent [facility] unknown) (unknown) (no (unknown) (unknown) Status post (units (un known) date) cholecystectomy unknown) (unknown) (no (unknown) (unknown) Stop: 02/09/23 (units (unknown) date) 18:22 unknown) (unknown) (no (unknown) (unknown) Substance Use (units ( unknown) date) Type: does not use unknown) (unknown) (no (unknown) (unknown) Sulfa (Sulfonamide (units (unknown) date) Allergy unknown) Intermediate rash Verified 02/09/23 18:21 (unknown) (no (unknown) (unknown) Surgical History (units (unknown) date) (Reviewed 02/09/23 unknown) @ 19:35 by Glo Vela DO) (unknown) (no (unknown) (unknown) Surgical changes (units (unknown) date) and devices:? unknown) Status post median sternotomy. (unknown) (no (unknown) (unknown) TAKE 1 CAPSULE BY (units (unknown) date) MOUTH ONCE DAILY unknown) (unknown) (no (unknown) (unknown) TAKE 1 TABLET BY (units (unknown) date) MOUTH ONCE DAILY IN unknown) THE MORNING (unknown) (no (unknown) (unknown) TAKE 1 TABLET BY (units (unknown) date) MOUTH ONCE DAILY unknown) (unknown) (no (unknown) (unknown) TECHNIQUE:? One (units (unknown) date) view of the chest unknown) was acquired.? (unknown) (no (unknown) (unknown) Take 6 tablets (units (unknown) date) p.o. x1 day, then 5 unknown) tablets p.o. x1 day, then 4 tablets p.o. (unknown) (no (unknown) (unknown) Temperature 98.1 F (units (unknown) date) 02/09/23 18:15 unknown) (unknown) (no (unknown) (unknown) They recommended (units (unknown) date) she come for unknown) evaluation but also told her to try her inhaler. (unknown) (no (unknown) (unknown) This is an (units (unk nown) date) 87-year-old female unknown) who comes with complaint of shortness of breath (unknown) (no (unknown) (unknown) This is an (units (unkn own) date) 87-year-old with unknown) history of COPD on 2 L nasal cannula 24 hours a day, (unknown) (no (unknown) (unknown) Time Seen by (units (u nknown) date) Provider: 02/09/23 unknown) 19:10 (unknown) (no (unknown) (unknown) Total Bilirubin (units (unknown) date) (0.2-1.3) mg/dL unknown) (unknown) (no (unknown) (unknown) Total Bilirubin (units (unknown) date) 2.7 H (0.2-1.3) unknown) mg/dL (unknown) (no (unknown) (unknown) Total Creatine (units (unknown) date) Kinase (30-135) U/L unknown) (unknown) (no (unknown) (unknown) Total Creatine (units (unknown) date) Kinase 30 (30-135) unknown) U/L (unknown) (no (unknown) (unknown) Total Protein (units ( unknown) date) (6.3-8.2) g/dL unknown) (unknown) (no (unknown) (unknown) Total Protein 7.3 (units (unknown) date) (6.3-8.2) g/dL unknown) (unknown) (no (unknown) (unknown) Troponin I 0.017 (units (unknown) date) (0.01-0.034) ng/mL unknown) (unknown) (no (unknown) (unknown) Troponin I 0.021 (units (unknown) date) (0.01-0.034) ng/mL unknown) (unknown) (no (unknown) (unknown) Unstable angina (units (unknown) date) unknown) (unknown) (no (unknown) (unknown) Valvular heart (units (unknown) date) disease unknown) (unknown) (no (unknown) (unknown) Vital Signs - 8 hr (units (unknown) date) unknown) (unknown) (no (unknown) (unknown) Vital Signs (units (un known) date) unknown) (unknown) (no (unknown) (unknown) Vital signs: (units (u nknown) date) unknown) (unknown) (no (unknown) (unknown) WBC (4.5-11.0) (units (unknown) date) X103/uL unknown) (unknown) (no (unknown) (unknown) WBC 12.8 H (units (unk nown) date) (4.5-11.0) X103/uL unknown) (unknown) (no (unknown) (unknown) Katy Salazar, (units (unknown) date) 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 [Primary Care unknown) Provider] (unknown) (no (unknown) (unknown) XRay Report (units (un known) date) unknown) (unknown) (no (unknown) (unknown) Your renal function (units (unknown) date) was slightly unknown) elevated today follow up with your physician to (unknown) (no (unknown) (unknown) [Embedded Image (units (unknown) date) Not Available] unknown) (unknown) (no (unknown) (unknown) [From Bactrim] (units (unknown) date) unknown) (unknown) (no (unknown) (unknown) [From Trilipix] (units (unknown) date) Upset unknown) (unknown) (no (unknown) (unknown) acarbose Allergy (units (unknown) date) Intermediate unknown) Abdominal Verified 02/09/23 18:21 (unknown) (no (unknown) (unknown) albuterol 90 (units (u nknown) date) mcg/actuation unknown) Aerosol (unknown) (no (unknown) (unknown) albuterol 90 (units (u nknown) date) mcg/actuation unknown) aerosol 90 mcg inhalation PRN Shortness Of 07/24/22 (unknown) (no (unknown) (unknown) albuterol just (units (unknown) date) before arriving unknown) which he states has significantly improved her (unknown) (no (unknown) (unknown) alcohol intake (units (unknown) date) frequency: 0-2 unknown) drinks per day (unknown) (no (unknown) (unknown) alcohol intake: (units (unknown) date) never unknown) (unknown) (no (unknown) (unknown) alcohol, no (units (un known) date) illicit. 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 unknown) She notes it got better after she used her (unknown) (no (unknown) (unknown) and below (units (unkn own) date) unknown) (unknown) (no (unknown) (unknown) any new swelling (units (unknown) date) in her extremities. unknown) She states she went to the walk-in clinic (unknown) (no (unknown) (unknown) appear (units (unkno wn) date) unknown) (unknown) (no (unknown) (unknown) appears similar (units (unknown) date) with no acute or unknown) dynamic changes. (unknown) (no (unknown) (unknown) aspirin 81 MG (units ( unknown) date) tablet,delayed unknown) release (DR/EC) (unknown) (no (unknown) (unknown) aspirin 81 mg (units ( unknown) date) tablet,delayed 81 unknown) mg PO QDAY ##0 09/14/17 07/24/22 (unknown) (no (unknown) (unknown) atorvastatin 20 mg (units (unknown) date) tablet (Lipitor) 40 unknown) mg PO QPM 07/08/22 07/24/22 (unknown) (no (unknown) (unknown) atorvastatin (units (u nknown) date) [Lipitor] 20 mg unknown) tablet (unknown) (no (unknown) (unknown) because she could (units (unknown) date) not get a hold of unknown) her primary care at the manager service desk referral. (unknown) (no (unknown) (unknown) better when she (units (unknown) date) uses her inhaler. unknown) She tried to reach her physician was not able (unknown) (no (unknown) (unknown) bilaterally lower (units (unknown) date) extremities. unknown) Neurovascularly intact (unknown) (no (unknown) (unknown) budesonide [From (units (unknown) date) Symbicort] Allergy unknown) Mild Anxiety Verified 02/09/23 18:21 (unknown) (no (unknown) (unknown) but she is (units (unk nown) date) asymptomatic unknown) otherwise negative LFTs. Initial troponin is negative. (unknown) (no (unknown) (unknown) capsule,extended (units (unknown) date) release 24 hr unknown) (unknown) (no (unknown) (unknown) carvedilol Allergy (units (unknown) date) Mild Rash Verified unknown) 02/09/23 18:21 (unknown) (no (unknown) (unknown) changes. Troponin (units (unknown) date) is negative. unknown) (unknown) (no (unknown) (unknown) chest with (units (unk nown) date) exertion. She unknown) denies diaphoresis, she states it does seem to get (unknown) (no (unknown) (unknown) chlorthalidone (units (unknown) date) Allergy unknown) Intermediate Redness of Verified 02/09/23 18:21 (unknown) (no (unknown) (unknown) choline (units (unkno wn) date) fenofibrate Allergy unknown) Mild Gastrointestinal Verified 02/09/23 18:21 (unknown) (no (unknown) (unknown) clopidogrel 75 mg (units (unknown) date) tablet 75 mg PO QAM unknown) 07/24/22 07/24/22 (unknown) (no (unknown) (unknown) clopidogrel 75 mg (units (unknown) date) tablet unknown) (unknown) (no (unknown) (unknown) concerning (units (unk nown) date) symptoms. unknown) (unknown) (no (unknown) (unknown) cyclobenzaprine 10 (units (unknown) date) mg Tablet unknown) (unknown) (no (unknown) (unknown) cyclobenzaprine 10 (units (unknown) date) mg tablet 10 mg PO unknown) TID PRN Muscle Spasm 07/24/22 07/24/22 (unknown) (no (unknown) (unknown) denies any fevers, (units (unknown) date) no chills, no cold, unknown) cough or congestion she is had some more (unknown) (no (unknown) (unknown) diaphoretic with (units (unknown) date) it. No nausea no unknown) vomiting. No abdominal back or flank pain, (unknown) (no (unknown) (unknown) diltiazem HCl 120 (units (unknown) date) mg 120 mg PO QAM unknown) 07/08/22 07/24/22 (unknown) (no (unknown) (unknown) diltiazem HCl (units ( unknown) date) [Cartia XT] 120 mg unknown) capsule,extended release 24hr (unknown) (no (unknown) (unknown) does not region on (units (unknown) date) examination but had unknown) used her albuterol prior to arrival (unknown) (no (unknown) (unknown) does use Advair (units (unknown) date) twice daily, she unknown) states she typically uses her albuterol couple (unknown) (no (unknown) (unknown) doxazosin [From (units (unknown) date) Cardura] Allergy unknown) Intermediate Rash Verified 02/09/23 18:21 (unknown) (no (unknown) (unknown) doxycycline (units (un known) date) Allergy unknown) Intermediate Rash Verified 02/09/23 18:21 (unknown) (no (unknown) (unknown) elevated than her (units (unknown) date) usual, normal unknown) electrolytes no significant anemia, no (unknown) (no (unknown) (unknown) enlarged, stable. (units (unknown) date) Interstitial unknown) prominence is unchanged compared to the prior (unknown) (no (unknown) (unknown) evaluation. She (units (unknown) date) has a history unknown) significant for COPD on 2 L nasal cannula at all (unknown) (no (unknown) (unknown) extremities (units (un known) date) unknown) (unknown) (no (unknown) (unknown) flare. She is had (units (unknown) date) a little bit unknown) increased shortness of breath and heaviness in (unknown) (no (unknown) (unknown) formoterol [From (units (unknown) date) Symbicort] Allergy unknown) Mild Anxiety Verified 02/09/23 18:21 (unknown) (no (unknown) (unknown) frequent belching. (units (unknown) date) She states it is unknown) always substernal not radiating it is worse (unknown) (no (unknown) (unknown) frequently but (units (unknown) date) states no dysuria, unknown) urgency or other changes. Patient has not had (unknown) (no (unknown) (unknown) function slightly (units (unknown) date) increased. unknown) (unknown) (no (unknown) (unknown) furosemide 40 mg (units (unknown) date) tablet 40 mg PO QAM unknown) 07/08/22 07/08/22 (unknown) (no (unknown) (unknown) furosemide 40 mg (units (unknown) date) tablet unknown) (unknown) (no (unknown) (unknown) gemfibrozil (units (un known) date) Allergy unknown) Intermediate Rash Verified 02/09/23 18:21 (unknown) (no (unknown) (unknown) guarding or (units (un known) date) rebound, rigidity, unknown) no mass (unknown) (no (unknown) (unknown) has some shortness (units (unknown) date) of breath, and does unknown) sometimes have a heavy feeling in her (unknown) (no (unknown) (unknown) her substernal (units (unknown) date) chest for the past unknown) 1-2 days and while walking at [employer] the (unknown) (no (unknown) (unknown) history. Initial (units (unknown) date) workup CBC, coags, unknown) CMP shows creatinine of 1.06 slightly (unknown) (no (unknown) (unknown) household members: (units (unknown) date) family and children unknown) (unknown) (no (unknown) (unknown) if she is having (units (unknown) date) any worsening unknown) change. Also asked her to follow-up as her renal (unknown) (no (unknown) (unknown) improved from the (units (unknown) date) 5000 range she was unknown) at previously. Repeat EKG show no acute (unknown) (no (unknown) (unknown) increasing (units (unk nown) date) frequency of use unknown) please start the prednisone script provided. (unknown) (no (unknown) (unknown) inhaler Breath (units (unknown) date) unknown) (unknown) (no (unknown) (unknown) inhaler. She did (units (unknown) date) stop her prednisone unknown) on February 06. Patient states she always (unknown) (no (unknown) (unknown) ipratropium 0.5 (units (unknown) date) mg-albuterol 3 mg unknown) ml inhalation PRN Shortness Of 07/24/22 (unknown) (no (unknown) (unknown) ipratropium-albute (units (unknown) date) rol 0.5 mg-3 mg(2.5 unknown) mg base)/3 mL solution for nebulization (unknown) (no (unknown) (unknown) isosorbide (units (unk nown) date) mononitrate 120 mg unknown) 120 mg PO QAM 07/08/22 07/24/22 (unknown) (no (unknown) (unknown) isosorbide (units (unk nown) date) mononitrate 120 mg unknown) tablet extended release 24 hr (unknown) (no (unknown) (unknown) leukocytosis, (units ( unknown) date) bilirubin slightly unknown) elevated 2.7 has been intermittently elevated (unknown) (no (unknown) (unknown) levofloxacin (units (u nknown) date) Allergy unknown) Intermediate Rash Verified 02/09/23 18:21 (unknown) (no (unknown) (unknown) levothyroxine 88 (units (unknown) date) mcg tablet 88 mcg unknown) PO QAM 07/08/22 07/24/22 (unknown) (no (unknown) (unknown) levothyroxine 88 (units (unknown) date) mcg tablet unknown) (unknown) (no (unknown) (unknown) lightheadedness or (units (unknown) date) passing out, unknown) swelling in her extremities or other new or (unknown) (no (unknown) (unknown) likely chronic.? (units (unknown) date) unknown) (unknown) (no (unknown) (unknown) lisinopril 40 mg (units (unknown) date) tablet 20 mg PO QAM unknown) 07/08/22 07/24/22 (unknown) (no (unknown) (unknown) lisinopril 40 mg (units (unknown) date) tablet unknown) (unknown) (no (unknown) (unknown) losartan Allergy (units (unknown) date) Intermediate Rash unknown) Verified 02/09/23 18:21 (unknown) (no (unknown) (unknown) make sure it is (units (unknown) date) not continuing to unknown) increase. (unknown) (no (unknown) (unknown) metoprolol AdvReac (units (unknown) date) Intermediate unknown) Verified 02/09/23 18:21 (unknown) (no (unknown) (unknown) metoprolol (units (unk nown) date) succinate 25 mg 25 unknown) mg PO DAILY 07/24/22 07/24/22 (unknown) (no (unknown) (unknown) metoprolol (units (unk nown) date) succinate 25 mg unknown) tablet extended release 24 hr (unknown) (no (unknown) (unknown) moist mucous (units (u nknown) date) membranes unknown) (unknown) (no (unknown) (unknown) montelukast [From (units (unknown) date) Singulair] Allergy unknown) Intermediate Difficulty Verified 02/09/23 (unknown) (no (unknown) (unknown) morning (units (unkno wn) date) unknown) (unknown) (no (unknown) (unknown) multiple (units (unkno wn) date) allergies. She unknown) smoked for about 17 years quitting in the 70s. No (unknown) (no (unknown) (unknown) multivitamin 1 tab (units (unknown) date) PO DAILY 09/10/18 unknown) 07/24/22 (unknown) (no (unknown) (unknown) multivitamin (units (u nknown) date) Tablet,Chewable unknown) (unknown) (no (unknown) (unknown) nifedipine Allergy (units (unknown) date) Intermediate Chills unknown) Verified 02/09/23 18:21 (unknown) (no (unknown) (unknown) nitroglycerin 0.4 (units (unknown) date) mg sublingual 0.4 unknown) mg sublingual Q5-15M PRN Chest 09/10/18 (unknown) (no (unknown) (unknown) nitroglycerin (units ( unknown) date) [Nitrostat] 0.4 mg unknown) Tablet, Sublingual (unknown) (no (unknown) (unknown) no issues with (units (unknown) date) bowel movements. unknown) She is on water pills so she urinates (unknown) (no (unknown) (unknown) omega (units (unkno wn) date) 0-wbn-mww-fish oil unknown) 1,000 mg 1,000 mg PO DAILY 09/10/18 07/24/22 (unknown) (no (unknown) (unknown) omega (units (unkno wn) date) 5-rwp-apw-fish oil unknown) [Fish Oil] 1,000 mg (120 mg-180 mg) Capsule (unknown) (no (unknown) (unknown) other day while (units (unknown) date) shopping felt a unknown) little bit more heaviness. She did note that (unknown) (no (unknown) (unknown) p.o. 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 unknown) d/c 07/14/22 (unknown) (no (unknown) (unknown) release (units (unkno wn) date) unknown) (unknown) (no (unknown) (unknown) seemed to improve (units (unknown) date) her symptoms. unknown) Patient was given prescription for prednisone (unknown) (no (unknown) (unknown) she forgets to use (units (unknown) date) her inhaler unknown) frequently and has not been using that. She (unknown) (no (unknown) (unknown) soln (units (unkno wn) date) unknown) (unknown) (no (unknown) (unknown) statin medication (units (unknown) date) for hypothyroidism, unknown) blood pressure. Patient states she has (unknown) (no (unknown) (unknown) study and is (units (u nknown) date) unknown) (unknown) (no (unknown) (unknown) sulfamethoxazole (units (unknown) date) Allergy unknown) Intermediate Rash Verified 02/09/23 18:21 (unknown) (no (unknown) (unknown) symptoms are more (units (unknown) date) secondary to her unknown) airway disease. Plan for patient to continue (unknown) (no (unknown) (unknown) symptoms. She (units ( unknown) date) denies any symptoms unknown) currently. Patient does have a cardiac (unknown) (no (unknown) (unknown) tablet (Nitrostat) (units (unknown) date) Pain unknown) (unknown) (no (unknown) (unknown) tablet,extended (units (unknown) date) release 24 hr unknown) (unknown) (no (unknown) (unknown) tachypnea. Speaks (units (unknown) date) in full sentences. unknown) Easy work of breathing. (unknown) (no (unknown) (unknown) times a week but (units (unknown) date) typically also unknown) forgets to use it. She is on aspirin, Plavix, (unknown) (no (unknown) (unknown) times, CABG, CHF (units (unknown) date) she is on her unknown) Advair b.i.d., she has stopped prednisone on the (unknown) (no (unknown) (unknown) to see them was (units (unknown) date) referred to the unknown) walk-in clinic who sent her here for (unknown) (no (unknown) (unknown) to use albuterol (units (unknown) date) as needed. She is unknown) not had any increasing O2 requirements and (unknown) (no (unknown) (unknown) tobacco type: (units ( unknown) date) cigarettes unknown) (unknown) (no (unknown) (unknown) torsemide 20 mg (units (unknown) date) Tablet unknown) (unknown) (no (unknown) (unknown) torsemide 20 mg (units (unknown) date) tablet 20 mg PO unknown) DAILY 07/24/22 07/24/22 (unknown) (no (unknown) (unknown) trimethoprim [From (units (unknown) date) Bactrim] Allergy unknown) Intermediate Rash Verified 02/09/23 18:21 (unknown) (no (unknown) (unknown) unremarkable.? (units (unknown) date) unknown) (unknown) (no (unknown) (unknown) vitamin E 268 mg (units (unknown) date) (400 unit) capsule unknown) 400 unit PO DAILY 09/10/18 07/24/22 (unknown) (no (unknown) (unknown) vitamin E 400 unit (units (unknown) date) Capsule unknown) (unknown) (no (unknown) (unknown) weekly. Her (units (un known) date) primary care is unknown) Katy Salazar. She has not been following (unknown) (no (unknown) (unknown) with exertion she (units (unknown) date) has a little bit unknown) more shortness of breath. She does not get (unknown) (no (unknown) (unknown) with pulmonology (units (unknown) date) regularly but has unknown) been seen, she sees cardiology. (unknown) (no (unknown) (unknown) x1 day, then 3 (units (unknown) date) tablets p.o. x1 unknown) day, then 2 tablets p.o. x1 day, then 1 tablet Result panel 1789 (unknown) (no (unknown) (unknown) (no value) (units (unk nown) date) unknown) (unknown) (no (unknown) (unknown) [id number] (units (unkno wn) date) unknown) (unknown) (no (unknown) (unknown) 02/16/23 (units (unkno wn) date) unknown) (unknown) (no (unknown) (unknown) [address] [place] [address] (units (unknown) date) unknown) (unknown) (no (unknown) (unknown) Accession Number: (units (unknown) date) [id number] unknown) (unknown) (no (unknown) (unknown) Age/Sex: 87 / F (units (unknown) date) Date of Service: unknown) (unknown) (no (unknown) (unknown) JENN Lopez (units ( unknown) date) [id number] unknown) (unknown) (no (unknown) (unknown) Approved by: (units (u nknown) date) Hilario Oconnell M.D. 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 (unknown) (no (unknown) (unknown) Bones and chest (units (unknown) date) wall: No unknown) suspicious bony lesions. Overlying soft tissues (unknown) (no (unknown) (unknown) COMPARISON: (units (un known) date) [facility], unknown) CR, XR CHEST 1V, 02/09/2023, 18:32. (unknown) (no (unknown) (unknown) : 1935 (units (unknown) date) Acct:[id number] unknown) (unknown) (no (unknown) (unknown) Dictated by: (units (u nknown) date) Hilario Oconnell M.D. on unknown) 02/16/2023 at 17:45 (unknown) (no (unknown) (unknown) FINDINGS: (units (unkn own) date) unknown) (unknown) (no (unknown) (unknown) IMPRESSION: (units (un known) date) Interval unknown) development of right mid lung zone focal airspace (unknown) (no (unknown) (unknown) INDICATIONS: (units (u nknown) date) chest pain unknown) (unknown) (no (unknown) (unknown) [facility] (units (unknown) date) unknown) (unknown) (no (unknown) (unknown) Loc: ED (units (unkno wn) date) unknown) (unknown) (no (unknown) (unknown) Lungs and pleura: (units (unknown) date) Patchy unknown) consolidation of the right mid lung zone which has (unknown) (no (unknown) (unknown) Mediastinum: (units (u nknown) date) Mediastinal unknown) contours appear normal. Heart size is enlarged. (unknown) (no (unknown) (unknown) No (units (unkno wn) date) unknown) (unknown) (no (unknown) (unknown) Ordering (units (unkno wn) date) Provider: unknown) Simon Smith MD (unknown) (no (unknown) (unknown) PROCEDURE: XR (units ( unknown) date) CHEST 1V unknown) (unknown) (no (unknown) (unknown) Patient: (units (unkno wn) date) Roselyn Mejia A unknown) MR#: [id number] (unknown) (no (unknown) (unknown) Procedure: XR (units ( unknown) date) chest 1V unknown) (unknown) (no (unknown) (unknown) Recommend follow (units (unknown) date) up chest unknown) radiograph 4-6 weeks after treatment to document (unknown) (no (unknown) (unknown) Signed (units (unkno wn) date) unknown) (unknown) (no (unknown) (unknown) Stable (units (unkno wn) date) cardiomegaly. unknown) (unknown) (no (unknown) (unknown) Surgical changes (units (unknown) date) and devices: unknown) Median sternotomy wires are present and appear (unknown) (no (unknown) (unknown) TECHNIQUE: One (units (unknown) date) view of the chest unknown) was acquired. (unknown) (no (unknown) (unknown) XRay Report (units (un known) date) unknown) (unknown) (no (unknown) (unknown) appear (units (unkno wn) date) unknown) (unknown) (no (unknown) (unknown) compared to the (units (unknown) date) prior study. unknown) Patchy left basilar opacities also more prominent. (unknown) (no (unknown) (unknown) consolidations in (units (unknown) date) the left unknown) hemithorax. No pneumothorax. No substantial pleural (unknown) (no (unknown) (unknown) disease/pneumonia (units (unknown) date) . unknown) (unknown) (no (unknown) (unknown) effusion. (units (unkn own) date) Background chronic unknown) interstitial changes as before. (unknown) (no (unknown) (unknown) findings and/or (units (unknown) date) return to baseline unknown) examination. (unknown) (no (unknown) (unknown) intact. (units (unkno wn) date) unknown) (unknown) (no (unknown) (unknown) progressed (units (unk nown) date) unknown) (unknown) (no (unknown) (unknown) resolution of (units ( unknown) date) unknown) (unknown) (no (unknown) (unknown) unremarkable. (units ( unknown) date) unknown) Result panel 1790 (unknown) (no date) (unknown) (unknown) 0 /ul (unkn own) (unknown) (no date) (unknown) (unknown) 0.2 % (unkn own) (unknown) (no date) (unknown) (unknown) 0.3 % (unkn own) (unknown) (no date) (unknown) (unknown) 100 /ul (unkn own) (unknown) (no date) (unknown) (unknown) 12.8 g/dl (unkn own) (unknown) (no date) (unknown) (unknown) 1200 /ul (unkn own) (unknown) (no date) (unknown) (unknown) 15.6 % (unkn own) (unknown) (no date) (unknown) (unknown) 11553 /ul (unkn own) (unknown) (no date) (unknown) (unknown) 18.8 x10 3/ul (unkn own) (unknown) (no date) (unknown) (unknown) 247 x10 3/ul (unkn own) (unknown) (no date) (unknown) (unknown) 28.5 pg (unkn own) (unknown) (no date) (unknown) (unknown) 33.4 % (unkn own) (unknown) (no date) (unknown) (unknown) 38.4 % (unkn own) (unknown) (no date) (unknown) (unknown) 4.49 x10 6/ul (unkn own) (unknown) (no date) (unknown) (unknown) 4.9 % (unkn own) (unknown) (no date) (unknown) (unknown) 6.6 % (unkn own) (unknown) (no date) (unknown) (unknown) 85.5 fl (unkn own) (unknown) (no date) (unknown) (unknown) 88.0 % (unkn own) (unknown) (no date) (unknown) (unknown) 900 /ul (unkn own) Result panel 1791 (unknown) (no date) (unknown) (unknown) 1.3 (units unknown) (unknown) (unknown) (no date) (unknown) (unknown) 15.3 seconds (unkn own) (unknown) (no date) (unknown) (unknown) 31 seconds (unkn own) (unknown) (no date) (unknown) (unknown) 31 seconds (unkn own) Result panel 1792 (unknown) (no date) (unknown) (unknown) Negative (units (unkn own) unknown) (unknown) (no date) (unknown) (unknown) Negative (units (unkn own) unknown) Result panel 1793 (unknown) (no date) (unknown) (unknown) 1.06 mg/dl (unkn own) (unknown) (no date) (unknown) (unknown) 1.2 (units (unkn own) unknown) (unknown) (no date) (unknown) (unknown) 1.9 mg/dl (unkn own) (unknown) (no date) (unknown) (unknown) 105 mg/dl (unkn own) (unknown) (no date) (unknown) (unknown) 105 mg/dl (unkn own) (unknown) (no date) (unknown) (unknown) 130 mmol/l (unkn own) (unknown) (no date) (unknown) (unknown) 17.0 (units (unkn own) unknown) (unknown) (no date) (unknown) (unknown) 18 iu/l (unkn own) (unknown) (no date) (unknown) (unknown) 18 mg/dl (unkn own) (unknown) (no date) (unknown) (unknown) 2.6 mg/dl (unkn own) (unknown) (no date) (unknown) (unknown) 22 iu/l (unkn own) (unknown) (no date) (unknown) (unknown) 24 u/l (unkn own) (unknown) (no date) (unknown) (unknown) 3.1 g/dl (unkn own) (unknown) (no date) (unknown) (unknown) 3.8 g/dl (unkn own) (unknown) (no date) (unknown) (unknown) 31 u/l (unkn own) (unknown) (no date) (unknown) (unknown) 32 mmol/l (unkn own) (unknown) (no date) (unknown) (unknown) 4.0 mmol/l (unkn own) (unknown) (no date) (unknown) (unknown) 51 ml/min (unkn own) (unknown) (no date) (unknown) (unknown) 51 ml/min (unkn own) (unknown) (no date) (unknown) (unknown) 6.9 g/dl (unkn own) (unknown) (no date) (unknown) (unknown) 82 u/l (unkn own) (unknown) (no date) (unknown) (unknown) 9.5 mg/dl (unkn own) (unknown) (no date) (unknown) (unknown) 93 mmol/l (unkn own) (unknown) (no date) (unknown) (unknown) Test not % (unkn own) performed (unknown) (no date) (unknown) (unknown) Test not % (unkn own) performed (unknown) (no date) (unknown) (unknown) Test not ng/ml (unkn own) performed (unknown) (no date) (unknown) (unknown) Test not ng/ml (unkn own) performed Result panel 1794 (unknown) (no date) (unknown) (unknown) 0.030 ng/ml (unkn own) (unknown) (no date) (unknown) (unknown) 0.030 ng/ml (unkn own) (unknown) (no date) (unknown) (unknown) 1.06 mg/dl (unkn own) (unknown) (no date) (unknown) (unknown) 1.2 (units (unkn own) unknown) (unknown) (no date) (unknown) (unknown) 1.9 mg/dl (unkn own) (unknown) (no date) (unknown) (unknown) 105 mg/dl (unkn own) (unknown) (no date) (unknown) (unknown) 105 mg/dl (unkn own) (unknown) (no date) (unknown) (unknown) 130 mmol/l (unkn own) (unknown) (no date) (unknown) (unknown) 17.0 (units (unkn own) unknown) (unknown) (no date) (unknown) (unknown) 18 iu/l (unkn own) (unknown) (no date) (unknown) (unknown) 18 mg/dl (unkn own) (unknown) (no date) (unknown) (unknown) 2.6 mg/dl (unkn own) (unknown) (no date) (unknown) (unknown) 22 iu/l (unkn own) (unknown) (no date) (unknown) (unknown) 24 u/l (unkn own) (unknown) (no date) (unknown) (unknown) 3.1 g/dl (unkn own) (unknown) (no date) (unknown) (unknown) 3.8 g/dl (unkn own) (unknown) (no date) (unknown) (unknown) 31 u/l (unkn own) (unknown) (no date) (unknown) (unknown) 32 mmol/l (unkn own) (unknown) (no date) (unknown) (unknown) 4.0 mmol/l (unkn own) (unknown) (no date) (unknown) (unknown) 51 ml/min (unkn own) (unknown) (no date) (unknown) (unknown) 51 ml/min (unkn own) (unknown) (no date) (unknown) (unknown) 6.9 g/dl (unkn own) (unknown) (no date) (unknown) (unknown) 82 u/l (unkn own) (unknown) (no date) (unknown) (unknown) 9.5 mg/dl (unkn own) (unknown) (no date) (unknown) (unknown) 93 mmol/l (unkn own) (unknown) (no date) (unknown) (unknown) Test not % (unkn own) performed (unknown) (no date) (unknown) (unknown) Test not % (unkn own) performed (unknown) (no date) (unknown) (unknown) Test not ng/ml (unkn own) performed (unknown) (no date) (unknown) (unknown) Test not ng/ml (unkn own) performed Result panel 1795 (unknown) (no (unknown) (unknown) (no value) (units (unk nown) date) unknown) (unknown) (no (unknown) (unknown) (120 mg-180 mg) (units (unknown) date) capsule (Fish Oil) unknown) (unknown) (no (unknown) (unknown) (2.5 mg base)/3 mL (units (unknown) date) nebulization Breath unknown) Or Wheezing (unknown) (no (unknown) (unknown) (Cartia XT) (units (un known) date) unknown) (unknown) (no (unknown) (unknown) 0.4 mg SUBLINGUAL (units (unknown) date) Q5-15M PRN (Reason: unknown) Chest Pain) (unknown) (no (unknown) (unknown) [id number] (units (unkno wn) date) unknown) (unknown) (no (unknown) (unknown) 02/16/23 02/16/23 (units (unknown) date) 02/16/23 unknown) Range/Units (unknown) (no (unknown) (unknown) 02/16/23 17:07 (units (unknown) date) unknown) (unknown) (no (unknown) (unknown) 02/16/23 17:08 (units (unknown) date) unknown) (unknown) (no (unknown) (unknown) 02/16/23 18:00 (units (unknown) date) unknown) (unknown) (no (unknown) (unknown) 02/16/23 18:05 (units (unknown) date) unknown) (unknown) (no (unknown) (unknown) 02/16/23 (units (unkno wn) date) Range/Units unknown) (unknown) (no (unknown) (unknown) 02/16/23 (units (unkno wn) date) unknown) (unknown) (no (unknown) (unknown) 07/24/22 (units (unkno wn) date) unknown) (unknown) (no (unknown) (unknown) 1 tab PO DAILY (units (unknown) date) unknown) (unknown) (no (unknown) (unknown) 1,000 mg PO DAILY (units (unknown) date) unknown) (unknown) (no (unknown) (unknown) 10 mg PO TID PRN (units (unknown) date) (Reason: Muscle unknown) Spasm) (unknown) (no (unknown) (unknown) 10 ml PO PRN (units (u nknown) date) (Reason: Cough) unknown) (unknown) (no (unknown) (unknown) 10-100mg/5ml (units (u nknown) date) liquid. take 10ml unknown) by mouth every 4 hrs as needed for cough (unknown) (no (unknown) (unknown) 120 mg PO QAM (units ( unknown) date) unknown) (unknown) (no (unknown) (unknown) 16:59 02/16/23 (units (unknown) date) unknown) (unknown) (no (unknown) (unknown) 18:00 18:00 18:00 (units (unknown) date) unknown) (unknown) (no (unknown) (unknown) 18:05 (units (unkno wn) date) unknown) (unknown) (no (unknown) (unknown) 18:20 02/16/23 (units (unknown) date) unknown) (unknown) (no (unknown) (unknown) 18:21 (units (unkno wn) date) unknown) (unknown) (no (unknown) (unknown) 18:22 02/16/23 (units (unknown) date) unknown) (unknown) (no (unknown) (unknown) 18:22 (units (unkno wn) date) unknown) (unknown) (no (unknown) (unknown) 18:29 (units (unkno wn) date) unknown) (unknown) (no (unknown) (unknown) 20 mg PO DAILY (units (unknown) date) unknown) (unknown) (no (unknown) (unknown) 20 mg PO QAM (units (u nknown) date) unknown) (unknown) (no (unknown) (unknown) 25 mg PO DAILY (units (unknown) date) unknown) (unknown) (no (unknown) (unknown) 40 mg PO QAM (units (u nknown) date) unknown) (unknown) (no (unknown) (unknown) 40 mg PO QPM (units (u nknown) date) unknown) (unknown) (no (unknown) (unknown) 400 unit PO DAILY (units (unknown) date) unknown) (unknown) (no (unknown) (unknown) 75 mg PO QAM (units (u nknown) date) unknown) (unknown) (no (unknown) (unknown) 81 mg PO QDAY Qty: (units (unknown) date) 0 unknown) (unknown) (no (unknown) (unknown) 88 mcg PO QAM (units ( unknown) date) unknown) (unknown) (no (unknown) (unknown) 90 mcg INHALATION (units (unknown) date) PRN (Reason: unknown) Shortness Of Breath) (unknown) (no (unknown) (unknown) ALT (<35) IU/L (units (unknown) date) unknown) (unknown) (no (unknown) (unknown) ALT 18 (<35) IU/L (units (unknown) date) unknown) (unknown) (no (unknown) (unknown) APTT (26-36) (units (u nknown) date) SECONDS unknown) (unknown) (no (unknown) (unknown) APTT 31 (26-36) (units (unknown) date) SECONDS unknown) (unknown) (no (unknown) (unknown) AST (14-36) IU/L (units (unknown) date) unknown) (unknown) (no (unknown) (unknown) AST 22 (14-36) (units (unknown) date) IU/L unknown) (unknown) (no (unknown) (unknown) Age/Sex: 87 / F (units (unknown) date) unknown) (unknown) (no (unknown) (unknown) Albumin (3.5-5.0) (units (unknown) date) g/dL unknown) (unknown) (no (unknown) (unknown) Albumin 3.8 (units (un known) date) (3.5-5.0) g/dL unknown) (unknown) (no (unknown) (unknown) Albumin/Globulin (units (unknown) date) Ratio (1.0-2.8) unknown) (unknown) (no (unknown) (unknown) Albumin/Globulin (units (unknown) date) Ratio 1.2 (1.0-2.8) unknown) (unknown) (no (unknown) (unknown) Alkaline (units (unkno wn) date) Phosphatase unknown) (38-126) U/L (unknown) (no (unknown) (unknown) Alkaline (units (unkno wn) date) Phosphatase 82 unknown) (38-126) U/L (unknown) (no (unknown) (unknown) Allergies (units (unkn own) date) unknown) (unknown) (no (unknown) (unknown) Allergy/AdvReac (units (unknown) date) Type Severity unknown) Reaction Status Date / Time (unknown) (no (unknown) (unknown) 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 (unknown) (no (unknown) (unknown) Antibiotics) (units (u nknown) date) unknown) (unknown) (no (unknown) (unknown) BUN (7-17) mg/dL (units (unknown) date) unknown) (unknown) (no (unknown) (unknown) BUN 18 H (7-17) (units (unknown) date) mg/dL unknown) (unknown) (no (unknown) (unknown) BUN/Creatinine (units (unknown) date) Ratio (6-22) unknown) (unknown) (no (unknown) (unknown) BUN/Creatinine (units (unknown) date) Ratio 17.0 (6-22) unknown) (unknown) (no (unknown) (unknown) Baso # (Auto) (units ( unknown) date) (0-100) /uL unknown) (unknown) (no (unknown) (unknown) Baso # (Auto) 100 (units (unknown) date) (0-100) /uL unknown) (unknown) (no (unknown) (unknown) Baso % (Auto) (units ( unknown) date) (0-2) % unknown) (unknown) (no (unknown) (unknown) Baso % (Auto) 0.3 (units (unknown) date) (0-2) % unknown) (unknown) (no (unknown) (unknown) 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 unknown) (unknown) (no (unknown) (unknown) Blood Pressure (units (unknown) date) 140/72 02/16/23 unknown) 16:59 (unknown) (no (unknown) (unknown) Blood Pressure (units (unknown) date) 140/72 129/60 unknown) (unknown) (no (unknown) (unknown) Blood Pressure (units (unknown) date) unknown) (unknown) (no (unknown) (unknown) Breathing (units (unkn own) date) unknown) (unknown) (no (unknown) (unknown) 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) unknown) (unknown) (no (unknown) (unknown) CK-MB (CK-2) Rel (units (unknown) date) Index TNP unknown) (unknown) (no (unknown) (unknown) CK-MB (CK-2) Rel (units (unknown) date) Index unknown) (unknown) (no (unknown) (unknown) CK-MB (CK-2) TNP (units (unknown) date) unknown) (unknown) (no (unknown) (unknown) CK-MB (CK-2) (units (u nknown) date) unknown) 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 (unknown) (no (unknown) (unknown) COVID19 -Nasal (units (unknown) date) RAPID Stat unknown) (unknown) (no (unknown) (unknown) Calcium (8.4-10.2) (units (unknown) date) mg/dL unknown) (unknown) (no (unknown) (unknown) Calcium 9.5 (units (un known) date) (8.4-10.2) mg/dL unknown) (unknown) (no (unknown) (unknown) Carbon Dioxide (units (unknown) date) (22-32) mmol/L unknown) (unknown) (no (unknown) (unknown) Carbon Dioxide 32 (units (unknown) date) (22-32) mmol/L unknown) (unknown) (no (unknown) (unknown) Chief complaint: (units (unknown) date) Weakness unknown) (unknown) (no (unknown) (unknown) Chloride (98-107) (units (unknown) date) mmol/L unknown) (unknown) (no (unknown) (unknown) Chloride 93 L (units ( unknown) date) (98-107) mmol/L unknown) (unknown) (no (unknown) (unknown) Complete Blood (units (unknown) date) Count AUTO DIFF unknown) Stat (unknown) (no (unknown) (unknown) Comprehensive (units ( unknown) date) Metabolic Panel unknown) Stat (unknown) (no (unknown) (unknown) Course (units (unkno wn) date) unknown) (unknown) (no (unknown) (unknown) Creatinine (units (unk nown) date) (0.52-1.04) mg/dL unknown) (unknown) (no (unknown) (unknown) Creatinine 1.06 H (units (unknown) date) (0.52-1.04) mg/dL unknown) (unknown) (no (unknown) (unknown) : 1935 (units (unknown) date) Acct:[id number] unknown) (unknown) (no (unknown) (unknown) Date of Service: (units (unknown) date) 02/16/23 unknown) (unknown) (no (unknown) (unknown) Departure (units (unkn own) date) unknown) (unknown) (no (unknown) (unknown) Discharge Plan (units (unknown) date) unknown) (unknown) (no (unknown) (unknown) ED Orders (units (unkn own) date) unknown) (unknown) (no (unknown) (unknown) EKG-12 Lead Stat (units (unknown) date) unknown) (unknown) (no (unknown) (unknown) ER Physician: (units ( unknown) date) Tan Fink D.O. unknown) (unknown) (no (unknown) (unknown) Elevated TSH (units (u nknown) date) unknown) (unknown) (no (unknown) (unknown) Emergency Report (units (unknown) date) unknown) (unknown) (no (unknown) (unknown) Eos # (Auto) (units (u nknown) date) (0-450) /uL unknown) (unknown) (no (unknown) (unknown) Eos # (Auto) 0 (units (unknown) date) (0-450) /uL unknown) (unknown) (no (unknown) (unknown) Eos % (Auto) (2-4) (units (unknown) date) % unknown) (unknown) (no (unknown) (unknown) Eos % (Auto) 0.2 L (units (unknown) date) (2-4) % unknown) (unknown) (no (unknown) (unknown) Estimated GFR (units ( unknown) date) (>60) mL/min unknown) (unknown) (no (unknown) (unknown) Estimated GFR 51 L (units (unknown) date) (>60) mL/min unknown) (unknown) (no (unknown) (unknown) Exam (units (unkno wn) date) unknown) (unknown) (no (unknown) (unknown) Family History (units (unknown) date) (Reviewed 02/09/23 unknown) @ 19:35 by Glo Vela DO) (unknown) (no (unknown) (unknown) Father Lung cancer (units (unknown) date) unknown) (unknown) (no (unknown) (unknown) Flonase 50 mcg (units (unknown) date) unknown) (unknown) (no (unknown) (unknown) Flonase PRN Dry (units (unknown) date) Nasal Passages unknown) 07/24/22 (unknown) (no (unknown) (unknown) General (units (unkno wn) date) unknown) (unknown) (no (unknown) (unknown) Globulin (1.7-4.1) (units (unknown) date) g/dL unknown) (unknown) (no (unknown) (unknown) Globulin 3.1 (units (u nknown) date) (1.7-4.1) g/dL unknown) (unknown) (no (unknown) (unknown) Glucose (80-110) (units (unknown) date) mg/dL unknown) (unknown) (no (unknown) (unknown) Glucose 105 (units (un known) date) (80-110) mg/dL unknown) (unknown) (no (unknown) (unknown) H/O hysterectomy (units (unknown) date) with oophorectomy unknown) (unknown) (no (unknown) (unknown) 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 (unknown) (no (unknown) (unknown) HPI - General (units ( unknown) date) Adult unknown) (unknown) (no (unknown) (unknown) HTN (hypertension) (units (unknown) date) unknown) (unknown) (no (unknown) (unknown) Hct (36-46) % (units ( unknown) date) unknown) (unknown) (no (unknown) (unknown) Hct 38.4 (36-46) % (units (unknown) date) unknown) (unknown) (no (unknown) (unknown) Hgb (12.0-16.0) (units (unknown) date) g/dL unknown) (unknown) (no (unknown) (unknown) Hgb 12.8 (units (unkno wn) date) (12.0-16.0) g/dL unknown) (unknown) (no (unknown) (unknown) Home Medications (units (unknown) date) unknown) (unknown) (no (unknown) (unknown) Hx of heart artery (units (unknown) date) stent unknown) (unknown) (no (unknown) (unknown) Hyperlipidemia (units (unknown) date) unknown) (unknown) (no (unknown) (unknown) INHALATION PRN (units (unknown) date) (Reason: Shortness unknown) Of Breath Or Wheezing) (unknown) (no (unknown) (unknown) INR (0.9-1.3) (units ( unknown) date) unknown) (unknown) (no (unknown) (unknown) INR 1.3 (0.9-1.3) (units (unknown) date) unknown) (unknown) (no (unknown) (unknown) Initial Vital (units ( unknown) date) Signs unknown) (unknown) (no (unknown) (unknown) Initial Vital (units ( unknown) date) Signs: unknown) (unknown) (no (unknown) (unknown) [facility] (units (unknown) date) [address] [place] [address] unknown) [place] [address] (unknown) (no (unknown) (unknown) Lab Data (units (unkno wn) date) unknown) (unknown) (no (unknown) (unknown) Lab Results (units (un known) date) unknown) (unknown) (no (unknown) (unknown) Labs: (units (unkno wn) date) unknown) (unknown) (no (unknown) (unknown) Lipase (23-300) (units (unknown) date) U/L unknown) (unknown) (no (unknown) (unknown) Lipase 31 (23-300) (units (unknown) date) U/L unknown) (unknown) (no (unknown) (unknown) Lipase Stat (units (un known) date) unknown) (unknown) (no (unknown) (unknown) Lymph # (Auto) (units (unknown) date) (1563-7403) /uL unknown) (unknown) (no (unknown) (unknown) Lymph # (Auto) 900 (units (unknown) date) L (2105-4257) /uL unknown) (unknown) (no (unknown) (unknown) Lymph % (Auto) (units (unknown) date) (25-40) % unknown) (unknown) (no (unknown) (unknown) Lymph % (Auto) 4.9 (units (unknown) date) L (25-40) % unknown) (unknown) (no (unknown) (unknown) MCH (26-34) PG (units (unknown) date) unknown) (unknown) (no (unknown) (unknown) MCH 28.5 (26-34) (units (unknown) date) PG unknown) (unknown) (no (unknown) (unknown) MCHC (30-36) % (units (unknown) date) unknown) (unknown) (no (unknown) (unknown) MCHC 33.4 (30-36) (units (unknown) date) % unknown) (unknown) (no (unknown) (unknown) MCV (80-100) fL (units (unknown) date) unknown) (unknown) (no (unknown) (unknown) MCV 85.5 (80-100) (units (unknown) date) fL unknown) (unknown) (no (unknown) (unknown) Magnesium (units (unkn own) date) (1.6-2.3) mg/dL unknown) (unknown) (no (unknown) (unknown) Magnesium 1.9 (units ( unknown) date) (1.6-2.3) mg/dL unknown) (unknown) (no (unknown) (unknown) Magnesium Stat (units (unknown) date) unknown) (unknown) (no (unknown) (unknown) Medical Decision (units (unknown) date) Making unknown) (unknown) (no (unknown) (unknown) Medical History (units (unknown) date) (Updated 02/09/23 @ unknown) 21:15 by Glo Vela DO) (unknown) (no (unknown) (unknown) Medication (units (unk nown) date) Instructions unknown) Recorded Confirmed (unknown) (no (unknown) (unknown) Medication (units (unk nown) date) Instructions unknown) Recorded (unknown) (no (unknown) (unknown) Mode of arrival: (units (unknown) date) EMS unknown) (unknown) (no (unknown) (unknown) Trigg # (Auto) (units ( unknown) date) (0-900) /uL unknown) (unknown) (no (unknown) (unknown) Trigg # (Auto) 1200 (units (unknown) date) H (0-900) /uL unknown) (unknown) (no (unknown) (unknown) Trigg % (Auto) (units ( unknown) date) (3-14) % unknown) (unknown) (no (unknown) (unknown) Trigg % (Auto) 6.6 (units (unknown) date) (3-14) % unknown) (unknown) (no (unknown) (unknown) Mother COPD (units (un known) date) (chronic unknown) obstructive pulmonary disease) (unknown) (no (unknown) (unknown) Neut # (Auto) (units ( unknown) date) (6049-6484) /uL unknown) (unknown) (no (unknown) (unknown) Neut # (Auto) (units ( unknown) date) 82864 H (7472-5466) unknown) /uL (unknown) (no (unknown) (unknown) Neut % (Auto) (units ( unknown) date) (50-75) % unknown) (unknown) (no (unknown) (unknown) Neut % (Auto) 88.0 (units (unknown) date) H (50-75) % unknown) (unknown) (no (unknown) (unknown) No Action (units (unkn own) date) unknown) (unknown) (no (unknown) (unknown) Ordered: (units (unkno wn) date) unknown) (unknown) (no (unknown) (unknown) Orders (units (unkno wn) date) unknown) (unknown) (no (unknown) (unknown) Oxygen Delivery (units (unknown) date) Method Nasal unknown) Cannula 02/16/23 16:59 (unknown) (no (unknown) (unknown) Oxygen Delivery (units (unknown) date) Method Nasal unknown) Cannula (unknown) (no (unknown) (unknown) Oxygen Flow Rate 2 (units (unknown) date) 02/16/23 16:59 unknown) (unknown) (no (unknown) (unknown) Oxygen Flow Rate 2 (units (unknown) date) unknown) (unknown) (no (unknown) (unknown) PRN (Reason: Dry (units (unknown) date) Nasal Passages) unknown) (unknown) (no (unknown) (unknown) PT (10.1-12.7) (units (unknown) date) SECONDS unknown) (unknown) (no (unknown) (unknown) PT 15.3 H (units (unkn own) date) (10.1-12.7) SECONDS unknown) (unknown) (no (unknown) (unknown) PTT Partial (units (un known) date) Thromboplastin Jorge Luis unknown) Stat (unknown) (no (unknown) (unknown) Pain (units (unkno wn) date) unknown) (unknown) (no (unknown) (unknown) Patient Comments: (units (unknown) date) unknown) (unknown) (no (unknown) (unknown) Patient History (units (unknown) date) unknown) (unknown) (no (unknown) (unknown) Patient: (units (unkno wn) date) Roselyn Mejia unknown) MR#: [id number] (unknown) (no (unknown) (unknown) Plt Count (units (unkn own) date) (150-400) X103/uL unknown) (unknown) (no (unknown) (unknown) Plt Count 247 (units ( unknown) date) (150-400) X103/uL unknown) (unknown) (no (unknown) (unknown) Potassium (units (unkn own) date) (3.4-5.1) mmol/L unknown) (unknown) (no (unknown) (unknown) Potassium 4.0 (units ( unknown) date) (3.4-5.1) mmol/L unknown) (unknown) (no (unknown) (unknown) Prescriptions: (units (unknown) date) unknown) (unknown) (no (unknown) (unknown) Previous Rx's (units ( unknown) date) unknown) (unknown) (no (unknown) (unknown) Prothrombin Time (units (unknown) date) INR Stat unknown) (unknown) (no (unknown) (unknown) Pulse Oximetry 94 (units (unknown) date) 02/16/23 16:59 unknown) (unknown) (no (unknown) (unknown) Pulse Oximetry 94 (units (unknown) date) unknown) (unknown) (no (unknown) (unknown) Pulse Oximetry 95 (units (unknown) date) unknown) (unknown) (no (unknown) (unknown) Pulse Rate 76 (units ( unknown) date) unknown) (unknown) (no (unknown) (unknown) Pulse Rate 82 (units ( unknown) date) 02/16/23 16:59 unknown) (unknown) (no (unknown) (unknown) Pulse Rate 82 77 (units (unknown) date) unknown) (unknown) (no (unknown) (unknown) RBC (4.0-5.2) (units ( unknown) date) X106/uL unknown) (unknown) (no (unknown) (unknown) RBC 4.49 (4.0-5.2) (units (unknown) date) X106/uL unknown) (unknown) (no (unknown) (unknown) RDW (11.6-14.8) % (units (unknown) date) unknown) (unknown) (no (unknown) (unknown) RDW 15.6 H (units (unk nown) date) (11.6-14.8) % unknown) (unknown) (no (unknown) (unknown) Referrals: (units (unk nown) date) unknown) (unknown) (no (unknown) (unknown) Related Data (units (u nknown) date) unknown) (unknown) (no (unknown) (unknown) Respiratory Rate (units (unknown) date) 24 02/16/23 16:59 unknown) (unknown) (no (unknown) (unknown) Respiratory Rate (units (unknown) date) 24 unknown) (unknown) (no (unknown) (unknown) Respiratory Rate (units (unknown) date) 31 H unknown) (unknown) (no (unknown) (unknown) Robitussin DM To (units (unknown) date) Go 10 ml PO PRN unknown) Cough 07/24/22 (unknown) (no (unknown) (unknown) Robitussin DM To (units (unknown) date) Go unknown) (unknown) (no (unknown) (unknown) Rx Instructions: (units (unknown) date) unknown) (unknown) (no (unknown) (unknown) SARS-CoV-2 (PCR) (units (unknown) date) (Negative) unknown) (unknown) (no (unknown) (unknown) SARS-CoV-2 (PCR) (units (unknown) date) Negative (Negative) unknown) (unknown) (no (unknown) (unknown) See Rx (units (unkno wn) date) Instructions .ROUTE unknown) .COMPLEX Qty: 21 0RF (unknown) (no (unknown) (unknown) Signed By: (units (unk nown) date) unknown) (unknown) (no (unknown) (unknown) Skin (units (unkno wn) date) unknown) (unknown) (no (unknown) (unknown) Smoking Status: (units (unknown) date) Former smoker unknown) (unknown) (no (unknown) (unknown) Social History (units (unknown) date) (Reviewed 02/09/23 unknown) @ 19:35 by Glo Vela DO) (unknown) (no (unknown) (unknown) Sodium (137-145) (units (unknown) date) mmol/L unknown) (unknown) (no (unknown) (unknown) Sodium 130 L (units (u nknown) date) (137-145) mmol/L unknown) (unknown) (no (unknown) (unknown) Source: patient (units (unknown) date) and EMS unknown) (unknown) (no (unknown) (unknown) Stated complaint: (units (unknown) date) Gen weak/ unknown) cough/could (unknown) (no (unknown) (unknown) Status post (units (un known) date) cholecystectomy unknown) (unknown) (no (unknown) (unknown) Substance Use (units ( unknown) date) Type: does not use unknown) (unknown) (no (unknown) (unknown) Sulfa (Sulfonamide (units (unknown) date) Allergy unknown) Intermediate rash Verified 02/09/23 18:21 (unknown) (no (unknown) (unknown) Surgical History (units (unknown) date) (Reviewed 02/09/23 unknown) @ 19:35 by Glo Vela DO) (unknown) (no (unknown) (unknown) TAKE 1 CAPSULE BY (units (unknown) date) MOUTH ONCE DAILY unknown) (unknown) (no (unknown) (unknown) TAKE 1 TABLET BY (units (unknown) date) MOUTH ONCE DAILY IN unknown) THE MORNING (unknown) (no (unknown) (unknown) TAKE 1 TABLET BY (units (unknown) date) MOUTH ONCE DAILY unknown) (unknown) (no (unknown) (unknown) Take 6 tablets (units (unknown) date) p.o. x1 day, then 5 unknown) tablets p.o. x1 day, then 4 tablets p.o. (unknown) (no (unknown) (unknown) Temperature 98.2 F (units (unknown) date) unknown) (unknown) (no (unknown) (unknown) Temperature (units (un known) date) unknown) (unknown) (no (unknown) (unknown) Time Seen by (units (u nknown) date) Provider: 02/16/23 unknown) 18:03 (unknown) (no (unknown) (unknown) Total Bilirubin (units (unknown) date) (0.2-1.3) mg/dL unknown) (unknown) (no (unknown) (unknown) Total Bilirubin (units (unknown) date) 2.6 H (0.2-1.3) unknown) mg/dL (unknown) (no (unknown) (unknown) Total Creatine (units (unknown) date) Kinase (30-135) U/L unknown) (unknown) (no (unknown) (unknown) Total Creatine (units (unknown) date) Kinase 24 L unknown) (30-135) U/L (unknown) (no (unknown) (unknown) Total Protein (units ( unknown) date) (6.3-8.2) g/dL unknown) (unknown) (no (unknown) (unknown) Total Protein 6.9 (units (unknown) date) (6.3-8.2) g/dL unknown) (unknown) (no (unknown) (unknown) Troponin + CK (units ( unknown) date) Cardiac Panel Stat unknown) (unknown) (no (unknown) (unknown) Troponin I (units (unk nown) date) (0.01-0.034) ng/mL unknown) (unknown) (no (unknown) (unknown) Troponin I 0.030 (units (unknown) date) (0.01-0.034) ng/mL unknown) (unknown) (no (unknown) (unknown) Unstable angina (units (unknown) date) unknown) (unknown) (no (unknown) (unknown) Valvular heart (units (unknown) date) disease unknown) (unknown) (no (unknown) (unknown) Vital Signs - 8 hr (units (unknown) date) unknown) (unknown) (no (unknown) (unknown) Vital Signs (units (un known) date) unknown) (unknown) (no (unknown) (unknown) Vital signs: (units (u nknown) date) unknown) (unknown) (no (unknown) (unknown) WBC (4.5-11.0) (units (unknown) date) X103/uL unknown) (unknown) (no (unknown) (unknown) WBC 18.8 H (units (unk nown) date) (4.5-11.0) X103/uL unknown) (unknown) (no (unknown) (unknown) Katy Salazar, (units (unknown) date) 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 [Primary Care unknown) Provider] (unknown) (no (unknown) (unknown) XR chest 1V Stat (units (unknown) date) unknown) (unknown) (no (unknown) (unknown) [Embedded Image (units (unknown) date) Not Available] unknown) (unknown) (no (unknown) (unknown) [From Bactrim] (units (unknown) date) unknown) (unknown) (no (unknown) (unknown) [From Trilipix] (units (unknown) date) Upset unknown) (unknown) (no (unknown) (unknown) acarbose Allergy (units (unknown) date) Intermediate unknown) Abdominal Verified 02/09/23 18:21 (unknown) (no (unknown) (unknown) albuterol 90 (units (u nknown) date) mcg/actuation unknown) Aerosol (unknown) (no (unknown) (unknown) albuterol 90 (units (u nknown) date) mcg/actuation unknown) aerosol 90 mcg inhalation PRN Shortness Of 07/24/22 (unknown) (no (unknown) (unknown) alcohol intake (units (unknown) date) frequency: 0-2 unknown) drinks per day (unknown) (no (unknown) (unknown) alcohol intake: (units (unknown) date) never unknown) (unknown) (no (unknown) (unknown) amlodipine Allergy (units (unknown) date) Intermediate unknown) Verified 02/09/23 18:21 (unknown) (no (unknown) (unknown) aspirin 81 MG (units ( unknown) date) tablet,delayed unknown) release (DR/EC) (unknown) (no (unknown) (unknown) aspirin 81 mg (units ( unknown) date) tablet,delayed 81 unknown) mg PO QDAY ##0 09/14/17 07/24/22 (unknown) (no (unknown) (unknown) atorvastatin 20 mg (units (unknown) date) tablet (Lipitor) 40 unknown) mg PO QPM 07/08/22 07/24/22 (unknown) (no (unknown) (unknown) atorvastatin (units (u nknown) date) [Lipitor] 20 mg unknown) tablet (unknown) (no (unknown) (unknown) budesonide [From (units (unknown) date) Symbicort] Allergy unknown) Mild Anxiety Verified 02/09/23 18:21 (unknown) (no (unknown) (unknown) capsule,extended (units (unknown) date) release 24 hr unknown) (unknown) (no (unknown) (unknown) carvedilol Allergy (units (unknown) date) Mild Rash Verified unknown) 02/09/23 18:21 (unknown) (no (unknown) (unknown) chlorthalidone (units (unknown) date) Allergy unknown) Intermediate Redness of Verified 02/09/23 18:21 (unknown) (no (unknown) (unknown) choline (units (unkno wn) date) fenofibrate Allergy unknown) Mild Gastrointestinal Verified 02/09/23 18:21 (unknown) (no (unknown) (unknown) clopidogrel 75 mg (units (unknown) date) tablet 75 mg PO QAM unknown) 07/24/22 07/24/22 (unknown) (no (unknown) (unknown) clopidogrel 75 mg (units (unknown) date) tablet unknown) (unknown) (no (unknown) (unknown) cyclobenzaprine 10 (units (unknown) date) mg Tablet unknown) (unknown) (no (unknown) (unknown) cyclobenzaprine 10 (units (unknown) date) mg tablet 10 mg PO unknown) TID PRN Muscle Spasm 07/24/22 07/24/22 (unknown) (no (unknown) (unknown) diltiazem HCl 120 (units (unknown) date) mg 120 mg PO QAM unknown) 07/08/22 07/24/22 (unknown) (no (unknown) (unknown) diltiazem HCl (units ( unknown) date) [Cartia XT] 120 mg unknown) capsule,extended release 24hr (unknown) (no (unknown) (unknown) doxazosin [From (units (unknown) date) Cardura] Allergy unknown) Intermediate Rash Verified 02/09/23 18:21 (unknown) (no (unknown) (unknown) doxycycline (units (un known) date) Allergy unknown) Intermediate Rash Verified 02/09/23 18:21 (unknown) (no (unknown) (unknown) formoterol [From (units (unknown) date) Symbicort] Allergy unknown) Mild Anxiety Verified 02/09/23 18:21 (unknown) (no (unknown) (unknown) furosemide 40 mg (units (unknown) date) tablet 40 mg PO QAM unknown) 07/08/22 07/08/22 (unknown) (no (unknown) (unknown) furosemide 40 mg (units (unknown) date) tablet unknown) (unknown) (no (unknown) (unknown) gemfibrozil (units (un known) date) Allergy unknown) Intermediate Rash Verified 02/09/23 18:21 (unknown) (no (unknown) (unknown) household members: (units (unknown) date) family and children unknown) (unknown) (no (unknown) (unknown) inhaler Breath (units (unknown) date) unknown) (unknown) (no (unknown) (unknown) ipratropium 0.5 (units (unknown) date) mg-albuterol 3 mg unknown) ml inhalation PRN Shortness Of 07/24/22 (unknown) (no (unknown) (unknown) ipratropium-albute (units (unknown) date) rol 0.5 mg-3 mg(2.5 unknown) mg base)/3 mL solution for nebulization (unknown) (no (unknown) (unknown) isosorbide (units (unk nown) date) mononitrate 120 mg unknown) 120 mg PO QAM 07/08/22 07/24/22 (unknown) (no (unknown) (unknown) isosorbide (units (unk nown) date) mononitrate 120 mg unknown) tablet extended release 24 hr (unknown) (no (unknown) (unknown) levofloxacin (units (u nknown) date) Allergy unknown) Intermediate Rash Verified 02/09/23 18:21 (unknown) (no (unknown) (unknown) levothyroxine 88 (units (unknown) date) mcg tablet 88 mcg unknown) PO QAM 07/08/22 07/24/22 (unknown) (no (unknown) (unknown) levothyroxine 88 (units (unknown) date) mcg tablet unknown) (unknown) (no (unknown) (unknown) lisinopril 40 mg (units (unknown) date) tablet 20 mg PO QAM unknown) 07/08/22 07/24/22 (unknown) (no (unknown) (unknown) lisinopril 40 mg (units (unknown) date) tablet unknown) (unknown) (no (unknown) (unknown) losartan Allergy (units (unknown) date) Intermediate Rash unknown) Verified 02/09/23 18:21 (unknown) (no (unknown) (unknown) metoprolol AdvReac (units (unknown) date) Intermediate unknown) Verified 02/09/23 18:21 (unknown) (no (unknown) (unknown) metoprolol (units (unk nown) date) succinate 25 mg 25 unknown) mg PO DAILY 07/24/22 07/24/22 (unknown) (no (unknown) (unknown) metoprolol (units (unk nown) date) succinate 25 mg unknown) tablet extended release 24 hr (unknown) (no (unknown) (unknown) montelukast [From (units (unknown) date) Singulair] Allergy unknown) Intermediate Difficulty Verified 02/09/23 (unknown) (no (unknown) (unknown) morning (units (unkno wn) date) unknown) (unknown) (no (unknown) (unknown) multivitamin 1 tab (units (unknown) date) PO DAILY 09/10/18 unknown) 07/24/22 (unknown) (no (unknown) (unknown) multivitamin (units (u nknown) date) Tablet,Chewable unknown) (unknown) (no (unknown) (unknown) nifedipine Allergy (units (unknown) date) Intermediate Chills unknown) Verified 02/09/23 18:21 (unknown) (no (unknown) (unknown) nitroglycerin 0.4 (units (unknown) date) mg sublingual 0.4 unknown) mg sublingual Q5-15M PRN Chest 09/10/18 (unknown) (no (unknown) (unknown) nitroglycerin (units ( unknown) date) [Nitrostat] 0.4 mg unknown) Tablet, Sublingual (unknown) (no (unknown) (unknown) omega (units (unkno wn) date) [id number]-fish oil unknown) 1,000 mg 1,000 mg PO DAILY 09/10/18 07/24/22 (unknown) (no (unknown) (unknown) omega (units (unkno wn) date) [id number]-fish oil unknown) [Fish Oil] 1,000 mg (120 mg-180 mg) Capsule (unknown) (no (unknown) (unknown) p.o. 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 unknown) d/c 07/14/22 (unknown) (no (unknown) (unknown) release (units (unkno wn) date) unknown) (unknown) (no (unknown) (unknown) soln (units (unkno wn) date) unknown) (unknown) (no (unknown) (unknown) sulfamethoxazole (units (unknown) date) Allergy unknown) Intermediate Rash Verified 02/09/23 18:21 (unknown) (no (unknown) (unknown) tablet (Nitrostat) (units (unknown) date) Pain unknown) (unknown) (no (unknown) (unknown) tablet,extended (units (unknown) date) release 24 hr unknown) (unknown) (no (unknown) (unknown) tobacco type: (units ( unknown) date) cigarettes unknown) (unknown) (no (unknown) (unknown) torsemide 20 mg (units (unknown) date) Tablet unknown) (unknown) (no (unknown) (unknown) torsemide 20 mg (units (unknown) date) tablet 20 mg PO unknown) DAILY 07/24/22 07/24/22 (unknown) (no (unknown) (unknown) trimethoprim [From (units (unknown) date) Bactrim] Allergy unknown) Intermediate Rash Verified 02/09/23 18:21 (unknown) (no (unknown) (unknown) vitamin E 268 mg (units (unknown) date) (400 unit) capsule unknown) 400 unit PO DAILY 09/10/18 07/24/22 (unknown) (no (unknown) (unknown) vitamin E 400 unit (units (unknown) date) Capsule unknown) (unknown) (no (unknown) (unknown) x1 day, then 3 (units (unknown) date) tablets p.o. x1 unknown) day, then 2 tablets p.o. x1 day, then 1 tablet Result panel [id number] (unknown) (no (unknown) (unknown) (no value) (units (unk nown) date) unknown) (unknown) (no (unknown) (unknown) <Electronically (units (unknown) date) signed by Tan Fink D.O.> (unknown) (no (unknown) (unknown) (120 mg-180 mg) (units (unknown) date) capsule (Fish Oil) unknown) (unknown) (no (unknown) (unknown) (2.5 mg base)/3 mL (units (unknown) date) nebulization Breath unknown) Or Wheezing (unknown) (no (unknown) (unknown) (Cartia XT) (units (un known) date) unknown) (unknown) (no (unknown) (unknown) 0.4 mg SUBLINGUAL (units (unknown) date) Q5-15M PRN (Reason: unknown) Chest Pain) (unknown) (no (unknown) (unknown) [id number] (units (unkno wn) date) unknown) (unknown) (no (unknown) (unknown) 02/16/23 02/16/23 (units (unknown) date) 02/16/23 unknown) Range/Units (unknown) (no (unknown) (unknown) 02/16/23 17:07 (units (unknown) date) unknown) (unknown) (no (unknown) (unknown) 02/16/23 17:08 (units (unknown) date) unknown) (unknown) (no (unknown) (unknown) 02/16/23 18:00 (units (unknown) date) unknown) (unknown) (no (unknown) (unknown) 02/16/23 18:05 (units (unknown) date) unknown) (unknown) (no (unknown) (unknown) 02/16/23 2039 (units ( unknown) date) unknown) (unknown) (no (unknown) (unknown) 02/16/23 (units (unkno wn) date) Range/Units unknown) (unknown) (no (unknown) (unknown) 02/16/23 (units (unkno wn) date) unknown) (unknown) (no (unknown) (unknown) 07/24/22 (units (unkno wn) date) unknown) (unknown) (no (unknown) (unknown) 1 tab PO DAILY (units (unknown) date) unknown) (unknown) (no (unknown) (unknown) 1,000 mg PO DAILY (units (unknown) date) unknown) (unknown) (no (unknown) (unknown) 10 mg PO TID PRN (units (unknown) date) (Reason: Muscle unknown) Spasm) (unknown) (no (unknown) (unknown) 10 ml PO PRN (units (u nknown) date) (Reason: Cough) unknown) (unknown) (no (unknown) (unknown) 10-100mg/5ml (units (u nknown) date) liquid. take 10ml unknown) by mouth every 4 hrs as needed for cough (unknown) (no (unknown) (unknown) 120 mg PO QAM (units ( unknown) date) unknown) (unknown) (no (unknown) (unknown) 16:59 02/16/23 (units (unknown) date) unknown) (unknown) (no (unknown) (unknown) 18:00 18:00 18:00 (units (unknown) date) unknown) (unknown) (no (unknown) (unknown) 18:05 (units (unkno wn) date) unknown) (unknown) (no (unknown) (unknown) 18:20 02/16/23 (units (unknown) date) unknown) (unknown) (no (unknown) (unknown) 18:21 (units (unkno wn) date) unknown) (unknown) (no (unknown) (unknown) 18:22 02/16/23 (units (unknown) date) unknown) (unknown) (no (unknown) (unknown) 18:22 (units (unkno wn) date) unknown) (unknown) (no (unknown) (unknown) 18:29 02/16/23 (units (unknown) date) unknown) (unknown) (no (unknown) (unknown) 18:30 02/16/23 (units (unknown) date) unknown) (unknown) (no (unknown) (unknown) 18:30 (units (unkno wn) date) unknown) (unknown) (no (unknown) (unknown) 19:00 02/16/23 (units (unknown) date) unknown) (unknown) (no (unknown) (unknown) 19:00 (units (unkno wn) date) unknown) (unknown) (no (unknown) (unknown) 20 mg PO DAILY (units (unknown) date) unknown) (unknown) (no (unknown) (unknown) 20 mg PO QAM (units (u nknown) date) unknown) (unknown) (no (unknown) (unknown) 25 mg PO DAILY (units (unknown) date) unknown) (unknown) (no (unknown) (unknown) 250 mg PO DAILY 4 (units (unknown) date) Days Qty: 4 0RF unknown) (unknown) (no (unknown) (unknown) 40 mg PO QAM (units (u nknown) date) unknown) (unknown) (no (unknown) (unknown) 40 mg PO QPM (units (u nknown) date) unknown) (unknown) (no (unknown) (unknown) 400 unit PO DAILY (units (unknown) date) unknown) (unknown) (no (unknown) (unknown) 75 mg PO QAM (units (u nknown) date) unknown) (unknown) (no (unknown) (unknown) 81 mg PO QDAY Qty: (units (unknown) date) 0 unknown) (unknown) (no (unknown) (unknown) 88 mcg PO QAM (units ( unknown) date) unknown) (unknown) (no (unknown) (unknown) 90 mcg INHALATION (units (unknown) date) PRN (Reason: unknown) Shortness Of Breath) (unknown) (no (unknown) (unknown) ? (units (unkno wn) date) unknown) (unknown) (no (unknown) (unknown) ALT (<35) IU/L (units (unknown) date) unknown) (unknown) (no (unknown) (unknown) ALT 18 (<35) IU/L (units (unknown) date) unknown) (unknown) (no (unknown) (unknown) APTT (26-36) (units (u nknown) date) SECONDS unknown) (unknown) (no (unknown) (unknown) APTT 31 (26-36) (units (unknown) date) SECONDS unknown) (unknown) (no (unknown) (unknown) AST (14-36) IU/L (units (unknown) date) unknown) (unknown) (no (unknown) (unknown) AST 22 (14-36) (units (unknown) date) IU/L unknown) (unknown) (no (unknown) (unknown) Activity (units (unkno wn) date) Restrictions/Additi unknown) onal Instructions: (unknown) (no (unknown) (unknown) Age/Sex: 87 / F (units (unknown) date) unknown) (unknown) (no (unknown) (unknown) Albumin (3.5-5.0) (units (unknown) date) g/dL unknown) (unknown) (no (unknown) (unknown) Albumin 3.8 (units (un known) date) (3.5-5.0) g/dL unknown) (unknown) (no (unknown) (unknown) Albumin/Globulin (units (unknown) date) Ratio (1.0-2.8) unknown) (unknown) (no (unknown) (unknown) Albumin/Globulin (units (unknown) date) Ratio 1.2 (1.0-2.8) unknown) (unknown) (no (unknown) (unknown) Alkaline (units (unkno wn) date) Phosphatase unknown) (38-126) U/L (unknown) (no (unknown) (unknown) Alkaline (units (unkno wn) date) Phosphatase 82 unknown) (38-126) U/L (unknown) (no (unknown) (unknown) Allergies (units (unkn own) date) unknown) (unknown) (no (unknown) (unknown) Allergy/AdvReac (units (unknown) date) Type Severity unknown) Reaction Status Date / Time (unknown) (no (unknown) (unknown) 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 (unknown) (no (unknown) (unknown) Attestation: I (units (unknown) date) personally reviewed unknown) and interpreted this ECG as follows: (unknown) (no (unknown) (unknown) Auscultation: (units ( unknown) date) clear to unknown) auscultation bilaterally (unknown) (no (unknown) (unknown) Azithromycin (units (u nknown) date) (Azithromycin 250 unknown) Mg Tablet) 500 mg PO NOW ONE (unknown) (no (unknown) (unknown) BUN (7-17) mg/dL (units (unknown) date) unknown) (unknown) (no (unknown) (unknown) BUN 18 H (7-17) (units (unknown) date) mg/dL unknown) (unknown) (no (unknown) (unknown) BUN/Creatinine (units (unknown) date) Ratio (6-22) unknown) (unknown) (no (unknown) (unknown) BUN/Creatinine (units (unknown) date) Ratio 17.0 (6-22) unknown) (unknown) (no (unknown) (unknown) Baso # (Auto) (units ( unknown) date) (0-100) /uL unknown) (unknown) (no (unknown) (unknown) Baso # (Auto) 100 (units (unknown) date) (0-100) /uL unknown) (unknown) (no (unknown) (unknown) Baso % (Auto) (units ( unknown) date) (0-2) % unknown) (unknown) (no (unknown) (unknown) Baso % (Auto) 0.3 (units (unknown) date) (0-2) % unknown) (unknown) (no (unknown) (unknown) 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 No unknown) suspicious bony lesions.? 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 (units (u nknown) date) [facility], unknown) CR, XR CHEST 1V, 02/09/2023, 18:32. 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 (unknown) (no (unknown) (unknown) COVID19 -Nasal (units (unknown) date) RAPID Stat unknown) (unknown) (no (unknown) (unknown) Calcium (8.4-10.2) (units (unknown) date) mg/dL unknown) (unknown) (no (unknown) (unknown) Calcium 9.5 (units (un known) date) (8.4-10.2) mg/dL unknown) (unknown) (no (unknown) (unknown) Carbon Dioxide (units (unknown) date) (22-32) mmol/L unknown) (unknown) (no (unknown) (unknown) Carbon Dioxide 32 (units (unknown) date) (22-32) mmol/L unknown) (unknown) (no (unknown) (unknown) Cardio (units (unkno wn) date) unknown) (unknown) (no (unknown) (unknown) Chest x-ray: (units (u nknown) date) unknown) (unknown) (no (unknown) (unknown) Chief complaint: (units (unknown) date) Weakness unknown) (unknown) (no (unknown) (unknown) Chloride (98-107) (units (unknown) date) mmol/L unknown) (unknown) (no (unknown) (unknown) Chloride 93 L (units ( unknown) date) (98-107) mmol/L unknown) (unknown) (no (unknown) (unknown) Clinical (units (unkno wn) date) Impression: unknown) (unknown) (no (unknown) (unknown) Complete Blood (units (unknown) date) Count AUTO DIFF unknown) Stat (unknown) (no (unknown) (unknown) Comprehensive (units ( unknown) date) Metabolic Panel unknown) Stat (unknown) (no (unknown) (unknown) Const (units (unkno wn) date) unknown) (unknown) (no (unknown) (unknown) Course (units (unkno wn) date) unknown) (unknown) (no (unknown) (unknown) Creatinine (units (unk nown) date) (0.52-1.04) mg/dL unknown) (unknown) (no (unknown) (unknown) Creatinine 1.06 H (units (unknown) date) (0.52-1.04) mg/dL unknown) (unknown) (no (unknown) (unknown) : 1935 (units (unknown) date) Acct:[id number] unknown) (unknown) (no (unknown) (unknown) Date of Service: (units (unknown) date) 02/16/23 unknown) (unknown) (no (unknown) (unknown) Departure (units (unkn own) date) unknown) (unknown) (no (unknown) (unknown) Discharge Plan (units (unknown) date) unknown) (unknown) (no (unknown) (unknown) Discontinued (units (u nknown) date) Medications unknown) (unknown) (no (unknown) (unknown) Documented By: DKB (units (unknown) date) unknown) (unknown) (no (unknown) (unknown) ECG Data (units (unkno wn) date) unknown) (unknown) (no (unknown) (unknown) ED Orders (units (unkn own) date) unknown) (unknown) (no (unknown) (unknown) EKG-12 Lead Stat (units (unknown) date) unknown) (unknown) (no (unknown) (unknown) ER Physician: (units ( unknown) date) Tan Fink D.O. unknown) (unknown) (no (unknown) (unknown) Effort + (units (unkno wn) date) Inspection: unknown) respiratory effort not decreased and tachypneic (unknown) (no (unknown) (unknown) Elevated TSH (units (u nknown) date) unknown) (unknown) (no (unknown) (unknown) Emergency Report (units (unknown) date) unknown) (unknown) (no (unknown) (unknown) Eos # (Auto) (units (u nknown) date) (0-450) /uL unknown) (unknown) (no (unknown) (unknown) Eos # (Auto) 0 (units (unknown) date) (0-450) /uL unknown) (unknown) (no (unknown) (unknown) Eos % (Auto) (2-4) (units (unknown) date) % unknown) (unknown) (no (unknown) (unknown) Eos % (Auto) 0.2 L (units (unknown) date) (2-4) % unknown) (unknown) (no (unknown) (unknown) Estimated GFR (units ( unknown) date) (>60) mL/min unknown) (unknown) (no (unknown) (unknown) Estimated GFR 51 L (units (unknown) date) (>60) mL/min unknown) (unknown) (no (unknown) (unknown) Exam (units (unkno wn) date) unknown) (unknown) (no (unknown) (unknown) Extrem (units (unkno wn) date) unknown) (unknown) (no (unknown) (unknown) FINDINGS:? (units (unk nown) date) unknown) (unknown) (no (unknown) (unknown) Family History (units (unknown) date) (Reviewed 02/09/23 unknown) @ 19:35 by Glo Vela DO) (unknown) (no (unknown) (unknown) Father Lung cancer (units (unknown) date) unknown) (unknown) (no (unknown) (unknown) Flonase 50 mcg (units (unknown) date) unknown) (unknown) (no (unknown) (unknown) Flonase PRN Dry (units (unknown) date) Nasal Passages unknown) 07/24/22 (unknown) (no (unknown) (unknown) GCS (units (unkno wn) date) unknown) (unknown) (no (unknown) (unknown) GI (units (unkno wn) date) unknown) (unknown) (no (unknown) (unknown) General (units (unkno wn) date) unknown) (unknown) (no (unknown) (unknown) General: No edema (units (unknown) date) unknown) (unknown) (no (unknown) (unknown) General: No ill (units (unknown) date) appearing unknown) (unknown) (no (unknown) (unknown) General: no rashes (units (unknown) date) or lesions noted unknown) (unknown) (no (unknown) (unknown) General: patient (units (unknown) date) alert, patient unknown) awake, patient oriented x3 and moves all (unknown) (no (unknown) (unknown) Adi coma scale (units (unknown) date) eye opening: unknown) Spontaneous (unknown) (no (unknown) (unknown) [place] coma scale (units (unknown) date) motor response: unknown) Obey commands (unknown) (no (unknown) (unknown) [place] coma scale (units (unknown) date) total score: 15 unknown) (unknown) (no (unknown) (unknown) [place] coma scale (units (unknown) date) verbal response: unknown) Orientated (unknown) (no (unknown) (unknown) Globulin (1.7-4.1) (units (unknown) date) g/dL unknown) (unknown) (no (unknown) (unknown) Globulin 3.1 (units (u nknown) date) (1.7-4.1) g/dL unknown) (unknown) (no (unknown) (unknown) Glucose (80-110) (units (unknown) date) mg/dL unknown) (unknown) (no (unknown) (unknown) Glucose 105 (units (un known) date) (80-110) mg/dL unknown) (unknown) (no (unknown) (unknown) H/O hysterectomy (units (unknown) date) with oophorectomy unknown) (unknown) (no (unknown) (unknown) 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 (unknown) (no (unknown) (unknown) HENMT (units (unkno wn) date) unknown) (unknown) (no (unknown) (unknown) HPI - General (units ( unknown) date) Adult unknown) (unknown) (no (unknown) (unknown) HPI narrative: (units (unknown) date) unknown) (unknown) (no (unknown) (unknown) HTN (hypertension) (units (unknown) date) unknown) (unknown) (no (unknown) (unknown) Hct (36-46) % (units ( unknown) date) unknown) (unknown) (no (unknown) (unknown) Hct 38.4 (36-46) % (units (unknown) date) unknown) (unknown) (no (unknown) (unknown) Head: normal to (units (unknown) date) inspection and unknown) normocephalic (unknown) (no (unknown) (unknown) Hgb (12.0-16.0) (units (unknown) date) g/dL unknown) (unknown) (no (unknown) (unknown) Hgb 12.8 (units (unkno wn) date) (12.0-16.0) g/dL unknown) (unknown) (no (unknown) (unknown) History of Present (units (unknown) date) Illness unknown) (unknown) (no (unknown) (unknown) Home Medications (units (unknown) date) unknown) (unknown) (no (unknown) (unknown) Hx of heart artery (units (unknown) date) stent unknown) (unknown) (no (unknown) (unknown) Hyperlipidemia (units (unknown) date) unknown) (unknown) (no (unknown) (unknown) IMPRESSION:? (units (u nknown) date) Interval unknown) development of right mid lung zone focal airspace (unknown) (no (unknown) (unknown) INDICATIONS:? (units ( unknown) date) chest pain unknown) (unknown) (no (unknown) (unknown) INHALATION PRN (units (unknown) date) (Reason: Shortness unknown) Of Breath Or Wheezing) (unknown) (no (unknown) (unknown) INR (0.9-1.3) (units ( unknown) date) unknown) (unknown) (no (unknown) (unknown) INR 1.3 (0.9-1.3) (units (unknown) date) unknown) (unknown) (no (unknown) (unknown) Imaging Data (units (u nknown) date) unknown) (unknown) (no (unknown) (unknown) Initial Vital (units ( unknown) date) Signs unknown) (unknown) (no (unknown) (unknown) Initial Vital (units ( unknown) date) Signs: unknown) (unknown) (no (unknown) (unknown) Inspection: (units (un known) date) non-distended unknown) (unknown) (no (unknown) (unknown) Instructions: DI (units (unknown) date) for Pneumonia -- unknown) Adult (unknown) (no (unknown) (unknown) Interpretation: (units (unknown) date) unknown) (unknown) (no (unknown) (unknown) [facility] (units (unknown) date) [address] unknown) [place] [address] (unknown) (no (unknown) (unknown) LVH (units (unkno wn) date) unknown) (unknown) (no (unknown) (unknown) Lab Data (units (unkno wn) date) unknown) (unknown) (no (unknown) (unknown) Lab Results (units (un known) date) unknown) (unknown) (no (unknown) (unknown) Lab results (units (un known) date) reviewed: Yes I unknown) reviewed the patient's lab results. (unknown) (no (unknown) (unknown) Labs: (units (unkno wn) date) unknown) (unknown) (no (unknown) (unknown) Last Admin: (units (un known) date) 02/16/23 19:07 unknown) Dose: 500 mg (unknown) (no (unknown) (unknown) Limitations: no (units (unknown) date) limitations unknown) (unknown) (no (unknown) (unknown) Lipase (23-300) (units (unknown) date) U/L unknown) (unknown) (no (unknown) (unknown) Lipase 31 (23-300) (units (unknown) date) U/L unknown) (unknown) (no (unknown) (unknown) Lipase Stat (units (un known) date) unknown) (unknown) (no (unknown) (unknown) Lungs and pleura:? (units (unknown) date) Patch[place] unknown) consolidation of the right mid lung zone which has (unknown) (no (unknown) (unknown) Lymph # (Auto) (units (unknown) date) (1878-9785) /uL unknown) (unknown) (no (unknown) (unknown) Lymph # (Auto) 900 (units (unknown) date) L (2039-3533) /uL unknown) (unknown) (no (unknown) (unknown) Lymph % (Auto) (units (unknown) date) (25-40) % unknown) (unknown) (no (unknown) (unknown) Lymph % (Auto) 4.9 (units (unknown) date) L (25-40) % unknown) (unknown) (no (unknown) (unknown) MCH (26-34) PG (units (unknown) date) unknown) (unknown) (no (unknown) (unknown) MCH 28.5 (26-34) (units (unknown) date) PG unknown) (unknown) (no (unknown) (unknown) MCHC (30-36) % (units (unknown) date) unknown) (unknown) (no (unknown) (unknown) MCHC 33.4 (30-36) (units (unknown) date) % unknown) (unknown) (no (unknown) (unknown) MCV (80-100) fL (units (unknown) date) unknown) (unknown) (no (unknown) (unknown) MCV 85.5 (80-100) (units (unknown) date) fL unknown) (unknown) (no (unknown) (unknown) MDM Narrative (units ( unknown) date) unknown) (unknown) (no (unknown) (unknown) Magnesium (units (unkn own) date) (1.6-2.3) mg/dL unknown) (unknown) (no (unknown) (unknown) Magnesium 1.9 (units ( unknown) date) (1.6-2.3) mg/dL unknown) (unknown) (no (unknown) (unknown) Magnesium Stat (units (unknown) date) unknown) (unknown) (no (unknown) (unknown) [place] per your (units ( unknown) date) request. Continue unknown) to use your oxygen as needed. Continue the (unknown) (no (unknown) (unknown) Mediastinum:? (units ( unknown) date) Mediastinal unknown) contours appear normal.? Heart size is enlarged.? (unknown) (no (unknown) (unknown) Medical Decision (units (unknown) date) Making unknown) (unknown) (no (unknown) (unknown) Medical History (units (unknown) date) (Reviewed 02/16/23 unknown) @ 20:37 by Tan Fink DO) (unknown) (no (unknown) (unknown) Medical Records (units (unknown) date) unknown) (unknown) (no (unknown) (unknown) Medical decision (units (unknown) date) making narrative: unknown) (unknown) (no (unknown) (unknown) Medical records (units (unknown) date) reviewed: Yes I unknown) reviewed the patient's medical records. (unknown) (no (unknown) (unknown) Medication (units (unk nown) date) Instructions unknown) Recorded Confirmed (unknown) (no (unknown) (unknown) Medication (units (unk nown) date) Instructions unknown) Recorded (unknown) (no (unknown) (unknown) Mode of arrival: (units (unknown) date) EMS unknown) (unknown) (no (unknown) (unknown) [place] # (Auto) (units ( unknown) date) (0-900) /uL unknown) (unknown) (no (unknown) (unknown) [place] # (Auto) 1200 (units (unknown) date) H (0-900) /uL unknown) (unknown) (no (unknown) (unknown) [place] % (Auto) (units ( unknown) date) (3-14) % unknown) (unknown) (no (unknown) (unknown) [place] % (Auto) 6.6 (units (unknown) date) (3-14) % unknown) (unknown) (no (unknown) (unknown) Mother COPD (units (un known) date) (chronic unknown) obstructive pulmonary disease) (unknown) (no (unknown) (unknown) Neuro (units (unkno wn) date) unknown) (unknown) (no (unknown) (unknown) Neut # (Auto) (units ( unknown) date) (8378-7126) /uL unknown) (unknown) (no (unknown) (unknown) Neut # (Auto) (units ( unknown) date) 65129 H (8374-3871) unknown) /uL (unknown) (no (unknown) (unknown) Neut % (Auto) (units ( unknown) date) (50-75) % unknown) (unknown) (no (unknown) (unknown) Neut % (Auto) 88.0 (units (unknown) date) H (50-75) % unknown) (unknown) (no (unknown) (unknown) New (units (unkno wn) date) unknown) (unknown) (no (unknown) (unknown) No Action (units (unkn own) date) unknown) (unknown) (no (unknown) (unknown) Nonspecific ST T (units (unknown) date) wave changes unknown) (unknown) (no (unknown) (unknown) Normal axis (units (un known) date) unknown) (unknown) (no (unknown) (unknown) Ordered: (units (unkno wn) date) unknown) (unknown) (no (unknown) (unknown) Orders (units (unkno wn) date) unknown) (unknown) (no (unknown) (unknown) Oxygen Delivery (units (unknown) date) Method Nasal unknown) Cannula 02/16/23 16:59 (unknown) (no (unknown) (unknown) Oxygen Delivery (units (unknown) date) Method Nasal unknown) Cannula Nasal Cannula (unknown) (no (unknown) (unknown) Oxygen Delivery (units (unknown) date) Method Nasal unknown) Cannula (unknown) (no (unknown) (unknown) Oxygen Flow Rate 2 (units (unknown) date) 02/16/23 16:59 unknown) (unknown) (no (unknown) (unknown) Oxygen Flow Rate 2 (units (unknown) date) 2 unknown) (unknown) (no (unknown) (unknown) Oxygen Flow Rate 2 (units (unknown) date) unknown) (unknown) (no (unknown) (unknown) PRN (Reason: Dry (units (unknown) date) Nasal Passages) unknown) (unknown) (no (unknown) (unknown) PROCEDURE:? XR (units (unknown) date) CHEST 1V unknown) (unknown) (no (unknown) (unknown) PT (10.1-12.7) (units (unknown) date) SECONDS unknown) (unknown) (no (unknown) (unknown) PT 15.3 H (units (unkn own) date) (10.1-12.7) SECONDS unknown) (unknown) (no (unknown) (unknown) PTT Partial (units (un known) date) Thromboplastin Jorge Luis unknown) Stat (unknown) (no (unknown) (unknown) Pain (units (unkno wn) date) unknown) (unknown) (no (unknown) (unknown) Patient Comments: (units (unknown) date) unknown) (unknown) (no (unknown) (unknown) Patient (units (unkno wn) date) Disposition: Home unknown) (unknown) (no (unknown) (unknown) Patient History (units (unknown) date) unknown) (unknown) (no (unknown) (unknown) Patient does have (units (unknown) date) leukocytosis unknown) however she is on steroids and her chest x-ray (unknown) (no (unknown) (unknown) Patient is an (units ( unknown) date) 87-year-old female. unknown) Does have history of COPD. Is on home (unknown) (no (unknown) (unknown) Patient: (units (unkno wn) date) RobertoJuneRoselyn Karen unknown) MR#: [id number] (unknown) (no (unknown) (unknown) Plt Count (units (unkn own) date) (150-400) X103/uL unknown) (unknown) (no (unknown) (unknown) Plt Count 247 (units ( unknown) date) (150-400) X103/uL unknown) (unknown) (no (unknown) (unknown) Pneumonia (units (unkn own) date) unknown) (unknown) (no (unknown) (unknown) Potassium (units (unkn own) date) (3.4-5.1) mmol/L unknown) (unknown) (no (unknown) (unknown) Potassium 4.0 (units ( unknown) date) (3.4-5.1) mmol/L unknown) (unknown) (no (unknown) (unknown) Prescriptions: (units (unknown) date) unknown) (unknown) (no (unknown) (unknown) Previous Rx's (units ( unknown) date) unknown) (unknown) (no (unknown) (unknown) Prothrombin Time (units (unknown) date) INR Stat unknown) (unknown) (no (unknown) (unknown) Psych (units (unkno wn) date) unknown) (unknown) (no (unknown) (unknown) Pulse Oximetry 94 (units (unknown) date) 02/16/23 16:59 unknown) (unknown) (no (unknown) (unknown) Pulse Oximetry 94 (units (unknown) date) unknown) (unknown) (no (unknown) (unknown) Pulse Oximetry 95 (units (unknown) date) 95 unknown) (unknown) (no (unknown) (unknown) Pulse Oximetry 95 (units (unknown) date) unknown) (unknown) (no (unknown) (unknown) Pulse Rate 76 74 (units (unknown) date) unknown) (unknown) (no (unknown) (unknown) Pulse Rate 76 (units ( unknown) date) unknown) (unknown) (no (unknown) (unknown) Pulse Rate 82 (units ( unknown) date) 02/16/23 16:59 unknown) (unknown) (no (unknown) (unknown) Pulse Rate 82 77 (units (unknown) date) unknown) (unknown) (no (unknown) (unknown) RBC (4.0-5.2) (units ( unknown) date) X106/uL unknown) (unknown) (no (unknown) (unknown) RBC 4.49 (4.0-5.2) (units (unknown) date) X106/uL unknown) (unknown) (no (unknown) (unknown) RDW (11.6-14.8) % (units (unknown) date) unknown) (unknown) (no (unknown) (unknown) RDW 15.6 H (units (unk nown) date) (11.6-14.8) % unknown) (unknown) (no (unknown) (unknown) ROS Unobtainable: (units (unknown) date) All systems unknown) reviewed + are unremarkable except as noted in HPI (unknown) (no (unknown) (unknown) Radiologist's (units ( unknown) date) Impression: unknown) (unknown) (no (unknown) (unknown) Rate: regular rate (units (unknown) date) unknown) (unknown) (no (unknown) (unknown) Recommend follow (units (unknown) date) up chest radiograph unknown) 4-6 weeks after treatment to document (unknown) (no (unknown) (unknown) Referrals: (units (unk nown) date) unknown) (unknown) (no (unknown) (unknown) Related Data (units (u nknown) date) unknown) (unknown) (no (unknown) (unknown) Resp (units (unkno wn) date) unknown) (unknown) (no (unknown) (unknown) Respiratory Rate (units (unknown) date) 24 02/16/23 16:59 unknown) (unknown) (no (unknown) (unknown) Respiratory Rate (units (unknown) date) 24 unknown) (unknown) (no (unknown) (unknown) Respiratory Rate (units (unknown) date) 30 H 30 H unknown) (unknown) (no (unknown) (unknown) Respiratory Rate (units (unknown) date) 31 H unknown) (unknown) (no (unknown) (unknown) Review of Systems (units (unknown) date) unknown) (unknown) (no (unknown) (unknown) 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 unknown) (unknown) (no (unknown) (unknown) Robitussin DM To (units (unknown) date) Go 10 ml PO PRN unknown) Cough 07/24/22 (unknown) (no (unknown) (unknown) Robitussin DM To (units (unknown) date) Go unknown) (unknown) (no (unknown) (unknown) Rx Instructions: (units (unknown) date) unknown) (unknown) (no (unknown) (unknown) SARS-CoV-2 (PCR) (units (unknown) date) (Negative) unknown) (unknown) (no (unknown) (unknown) SARS-CoV-2 (PCR) (units (unknown) date) Negative (Negative) unknown) (unknown) (no (unknown) (unknown) Scores (units (unkno wn) date) unknown) (unknown) (no (unknown) (unknown) See Rx (units (unkno wn) date) Instructions .ROUTE unknown) .COMPLEX Qty: 21 0RF (unknown) (no (unknown) (unknown) She did tolerate (units (unknown) date) an oral dose of unknown) azithromycin. She is allergic to (unknown) (no (unknown) (unknown) Signed By: (units (unk nown) date) unknown) (unknown) (no (unknown) (unknown) Sinus rhythm (units (u nknown) date) unknown) (unknown) (no (unknown) (unknown) Skin (units (unkno wn) date) unknown) (unknown) (no (unknown) (unknown) Smoking Status: (units (unknown) date) Former smoker unknown) (unknown) (no (unknown) (unknown) Social History (units (unknown) date) (Reviewed 02/16/23 unknown) @ 20:37 by Tan Fink DO) (unknown) (no (unknown) (unknown) Sodium (137-145) (units (unknown) date) mmol/L unknown) (unknown) (no (unknown) (unknown) Sodium 130 L (units (u nknown) date) (137-145) mmol/L unknown) (unknown) (no (unknown) (unknown) Source: patient (units (unknown) date) and EMS unknown) (unknown) (no (unknown) (unknown) Stable (units (unkno wn) date) cardiomegaly. unknown) (unknown) (no (unknown) (unknown) Stand Alone Forms: (units (unknown) date) Patient Portal/API unknown) (unknown) (no (unknown) (unknown) Stated complaint: (units (unknown) date) Gen weak/ unknown) cough/could (unknown) (no (unknown) (unknown) Status post (units (un known) date) cholecystectomy unknown) (unknown) (no (unknown) (unknown) Stop: 02/16/23 (units (unknown) date) 18:46 unknown) (unknown) (no (unknown) (unknown) Substance Use (units ( unknown) date) Type: does not use unknown) (unknown) (no (unknown) (unknown) Sulfa (Sulfonamide (units (unknown) date) Allergy unknown) Intermediate rash Verified 02/09/23 18:21 (unknown) (no (unknown) (unknown) Surgical History (units (unknown) date) (Reviewed 02/09/23 unknown) @ 19:35 by Glo Vela DO) (unknown) (no (unknown) (unknown) Surgical changes (units (unknown) date) and devices:? unknown) Median sternotomy wires are present and appear (unknown) (no (unknown) (unknown) TAKE 1 CAPSULE BY (units (unknown) date) MOUTH ONCE DAILY unknown) (unknown) (no (unknown) (unknown) TAKE 1 TABLET BY (units (unknown) date) MOUTH ONCE DAILY IN unknown) THE MORNING (unknown) (no (unknown) (unknown) TAKE 1 TABLET BY (units (unknown) date) MOUTH ONCE DAILY unknown) (unknown) (no (unknown) (unknown) TECHNIQUE:? One (units (unknown) date) view of the chest unknown) was acquired.? (unknown) (no (unknown) (unknown) Take 6 tablets (units (unknown) date) p.o. x1 day, then 5 unknown) tablets p.o. x1 day, then 4 tablets p.o. (unknown) (no (unknown) (unknown) Temperature 98.2 F (units (unknown) date) unknown) (unknown) (no (unknown) (unknown) Temperature (units (un known) date) unknown) (unknown) (no (unknown) (unknown) Time Seen by (units (u nknown) date) Provider: 02/16/23 unknown) 18:03 (unknown) (no (unknown) (unknown) Total Bilirubin (units (unknown) date) (0.2-1.3) mg/dL unknown) (unknown) (no (unknown) (unknown) Total Bilirubin (units (unknown) date) 2.6 H (0.2-1.3) unknown) mg/dL (unknown) (no (unknown) (unknown) Total Creatine (units (unknown) date) Kinase (30-135) U/L unknown) (unknown) (no (unknown) (unknown) Total Creatine (units (unknown) date) Kinase 24 L unknown) (30-135) U/L (unknown) (no (unknown) (unknown) Total Protein (units ( unknown) date) (6.3-8.2) g/dL unknown) (unknown) (no (unknown) (unknown) Total Protein 6.9 (units (unknown) date) (6.3-8.2) g/dL unknown) (unknown) (no (unknown) (unknown) Troponin + CK (units ( unknown) date) Cardiac Panel Stat unknown) (unknown) (no (unknown) (unknown) Troponin I (units (unk nown) date) (0.01-0.034) ng/mL unknown) (unknown) (no (unknown) (unknown) Troponin I 0.030 (units (unknown) date) (0.01-0.034) ng/mL unknown) (unknown) (no (unknown) (unknown) Unstable angina (units (unknown) date) unknown) (unknown) (no (unknown) (unknown) Valvular heart (units (unknown) date) disease unknown) (unknown) (no (unknown) (unknown) Vital Signs - 8 hr (units (unknown) date) unknown) (unknown) (no (unknown) (unknown) Vital Signs (units (un known) date) unknown) (unknown) (no (unknown) (unknown) Vital signs: (units (u nknown) date) unknown) (unknown) (no (unknown) (unknown) WBC (4.5-11.0) (units (unknown) date) X103/uL unknown) (unknown) (no (unknown) (unknown) WBC 18.8 H (units (unk nown) date) (4.5-11.0) X103/uL unknown) (unknown) (no (unknown) (unknown) Katy Salazar, (units (unknown) date) 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 [Primary Care unknown) Provider] (unknown) (no (unknown) (unknown) We gave you your (units (unknown) date) 1st dose of unknown) antibiotics here in the emergency department. Your (unknown) (no (unknown) (unknown) XR chest 1V Stat (units (unknown) date) unknown) (unknown) (no (unknown) (unknown) [Embedded Image (units (unknown) date) Not Available] unknown) (unknown) (no (unknown) (unknown) [From Bactrim] (units (unknown) date) unknown) (unknown) (no (unknown) (unknown) [From Trilipix] (units (unknown) date) Upset unknown) (unknown) (no (unknown) (unknown) acarbose Allergy (units (unknown) date) Intermediate unknown) Abdominal Verified 02/09/23 18:21 (unknown) (no (unknown) (unknown) albuterol 90 (units (u nknown) date) mcg/actuation unknown) Aerosol (unknown) (no (unknown) (unknown) albuterol 90 (units (u nknown) date) mcg/actuation unknown) aerosol 90 mcg inhalation PRN Shortness Of 07/24/22 (unknown) (no (unknown) (unknown) alcohol intake (units (unknown) date) frequency: 0-2 unknown) drinks per day (unknown) (no (unknown) (unknown) alcohol intake: (units (unknown) date) never unknown) (unknown) (no (unknown) (unknown) amlodipine Allergy (units (unknown) date) Intermediate unknown) Verified 02/09/23 18:21 (unknown) (no (unknown) (unknown) and below (units (unkn own) date) unknown) (unknown) (no (unknown) (unknown) antibiotics. Given (units (unknown) date) the fact that she unknown) has oxygen at home. Is at her baseline (unknown) (no (unknown) (unknown) appear (units (unkno wn) date) unknown) (unknown) (no (unknown) (unknown) as directed. She (units (unknown) date) lives at home with unknown) her son. (unknown) (no (unknown) (unknown) aspirin 81 MG (units ( unknown) date) tablet,delayed unknown) release (DR/EC) (unknown) (no (unknown) (unknown) aspirin 81 mg (units ( unknown) date) tablet,delayed 81 unknown) mg PO QDAY ##0 09/14/17 07/24/22 (unknown) (no (unknown) (unknown) atorvastatin 20 mg (units (unknown) date) tablet (Lipitor) 40 unknown) mg PO QPM 07/08/22 07/24/22 (unknown) (no (unknown) (unknown) atorvastatin (units (u nknown) date) [Lipitor] 20 mg unknown) tablet (unknown) (no (unknown) (unknown) azithromycin 250 (units (unknown) date) mg tablet 250 mg PO unknown) DAILY 4 days #4 tabs 02/16/23 (unknown) (no (unknown) (unknown) azithromycin 250 (units (unknown) date) mg tablet unknown) (unknown) (no (unknown) (unknown) baseline for her. (units (unknown) date) She is not in any unknown) respiratory distress. Not tachycardic. (unknown) (no (unknown) (unknown) budesonide [From (units (unknown) date) Symbicort] Allergy unknown) Mild Anxiety Verified 02/09/23 18:21 (unknown) (no (unknown) (unknown) capsule,extended (units (unknown) date) release 24 hr unknown) (unknown) (no (unknown) (unknown) carvedilol Allergy (units (unknown) date) Mild Rash Verified unknown) 02/09/23 18:21 (unknown) (no (unknown) (unknown) chlorthalidone (units (unknown) date) Allergy unknown) Intermediate Redness of Verified 02/09/23 18:21 (unknown) (no (unknown) (unknown) choline (units (unkno wn) date) fenofibrate Allergy unknown) Mild Gastrointestinal Verified 02/09/23 18:21 (unknown) (no (unknown) (unknown) clopidogrel 75 mg (units (unknown) date) tablet 75 mg PO QAM unknown) 07/24/22 07/24/22 (unknown) (no (unknown) (unknown) clopidogrel 75 mg (units (unknown) date) tablet unknown) (unknown) (no (unknown) (unknown) compared to the (units (unknown) date) prior study.? unknown) Patchy left basilar opacities also more (unknown) (no (unknown) (unknown) consolidations in (units (unknown) date) the left unknown) hemithorax.? No pneumothorax.? No substantial pleural (unknown) (no (unknown) (unknown) cyclobenzaprine 10 (units (unknown) date) mg Tablet unknown) (unknown) (no (unknown) (unknown) cyclobenzaprine 10 (units (unknown) date) mg tablet 10 mg PO unknown) TID PRN Muscle Spasm 07/24/22 07/24/22 (unknown) (no (unknown) (unknown) diltiazem HCl 120 (units (unknown) date) mg 120 mg PO QAM unknown) 07/08/22 07/24/22 (unknown) (no (unknown) (unknown) diltiazem HCl (units ( unknown) date) [Cartia XT] 120 mg unknown) capsule,extended release 24hr (unknown) (no (unknown) (unknown) disease/pneumonia. (units (unknown) date) unknown) (unknown) (no (unknown) (unknown) doxazosin [From (units (unknown) date) Cardura] Allergy unknown) Intermediate Rash Verified 02/09/23 18:21 (unknown) (no (unknown) (unknown) doxycycline (units (un known) date) Allergy unknown) Intermediate Rash Verified 02/09/23 18:21 (unknown) (no (unknown) (unknown) effusion.? (units (unk nown) date) Background chronic unknown) interstitial changes as before. (unknown) (no (unknown) (unknown) extremities (units (un known) date) unknown) (unknown) (no (unknown) (unknown) findings and/or (units (unknown) date) return to baseline unknown) examination. (unknown) (no (unknown) (unknown) fluoroquinolones. (units (unknown) date) It appears that the unknown) pneumonia on the x-ray today is new. 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 (units (unkno wn) date) unknown) (unknown) (no (unknown) (unknown) ipratropium 0.5 (units (unknown) date) mg-albuterol 3 mg unknown) ml inhalation PRN Shortness Of 07/24/22 (unknown) (no (unknown) (unknown) ipratropium-albute (units (unknown) date) rol 0.5 mg-3 mg(2.5 unknown) mg base)/3 mL solution for nebulization (unknown) (no (unknown) (unknown) isosorbide (units (unk nown) date) mononitrate 120 mg unknown) 120 mg PO QAM 07/08/22 07/24/22 (unknown) (no (unknown) (unknown) isosorbide (units (unk nown) date) mononitrate 120 mg unknown) tablet extended release 24 hr (unknown) (no (unknown) (unknown) levofloxacin (units (u nknown) date) Allergy unknown) Intermediate Rash Verified 02/09/23 18:21 (unknown) (no (unknown) (unknown) levothyroxine 88 (units (unknown) date) mcg tablet 88 mcg unknown) PO QAM 07/08/22 07/24/22 (unknown) (no (unknown) (unknown) levothyroxine 88 (units (unknown) date) mcg tablet unknown) (unknown) (no (unknown) (unknown) lisinopril 40 mg (units (unknown) date) tablet 20 mg PO QAM unknown) 07/08/22 07/24/22 (unknown) (no (unknown) (unknown) lisinopril 40 mg (units (unknown) date) tablet unknown) (unknown) (no (unknown) (unknown) losartan Allergy (units (unknown) date) Intermediate Rash unknown) Verified 02/09/23 18:21 (unknown) (no (unknown) (unknown) metoprolol AdvReac (units (unknown) date) Intermediate unknown) Verified 02/09/23 18:21 (unknown) (no (unknown) (unknown) metoprolol (units (unk nown) date) succinate 25 mg 25 unknown) mg PO DAILY 07/24/22 07/24/22 (unknown) (no (unknown) (unknown) metoprolol (units (unk nown) date) succinate 25 mg unknown) tablet extended release 24 hr (unknown) (no (unknown) (unknown) montelukast [From (units (unknown) date) Singulair] Allergy unknown) Intermediate Difficulty Verified 02/09/23 (unknown) (no (unknown) (unknown) morning (units (unkno wn) date) unknown) (unknown) (no (unknown) (unknown) most likely what (units (unknown) date) is causing her unknown) presenting symptoms today. She does require an (unknown) (no (unknown) (unknown) multivitamin 1 tab (units (unknown) date) PO DAILY 09/10/18 unknown) 07/24/22 (unknown) (no (unknown) (unknown) multivitamin (units (u nknown) date) Tablet,Chewable unknown) (unknown) (no (unknown) (unknown) new or worsening (units (unknown) date) symptoms. unknown) (unknown) (no (unknown) (unknown) next dose will be (units (unknown) date) tomorrow Sunday unknown) 02/17. The prescription was sent to [facility] (unknown) (no (unknown) (unknown) nifedipine Allergy (units (unknown) date) Intermediate Chills unknown) Verified 02/09/23 18:21 (unknown) (no (unknown) (unknown) nitroglycerin 0.4 (units (unknown) date) mg sublingual 0.4 unknown) mg sublingual Q5-15M PRN Chest 09/10/18 (unknown) (no (unknown) (unknown) nitroglycerin (units ( unknown) date) [Nitrostat] 0.4 mg unknown) Tablet, Sublingual (unknown) (no (unknown) (unknown) nontoxic appearing (units (unknown) date) we will discharge unknown) home with oral antibiotics. Since she was (unknown) (no (unknown) (unknown) not having any (units (unknown) date) chest pain but does unknown) have some shortness of breath. No abdominal (unknown) (no (unknown) (unknown) omega (units (unkno wn) date) 6-ghz-ifn-fish oil unknown) 1,000 mg 1,000 mg PO DAILY 09/10/18 07/24/22 (unknown) (no (unknown) (unknown) omega (units (unkno wn) date) 6-req-vka-fish oil unknown) [Fish Oil] 1,000 mg (120 mg-180 mg) Capsule (unknown) (no (unknown) (unknown) ouple days ago. (units (unknown) date) She is on 2 L of unknown) oxygen satting in the mid upper 90s. This is (unknown) (no (unknown) (unknown) oxygen. Was seen (units (unknown) date) here in the unknown) emergency department a couple days ago for what (unknown) (no (unknown) (unknown) p.o. x1 day (units (un known) date) unknown) (unknown) (no (unknown) (unknown) pack #21 ea (units (un known) date) unknown) (unknown) (no (unknown) (unknown) pain. No swelling (units (unknown) date) in her legs. She unknown) states she is taking all of her medications (unknown) (no (unknown) (unknown) patient states she (units (unknown) date) forgets to take unknown) (unknown) (no (unknown) (unknown) poorly. Has had a (units (unknown) date) cough. Has not had unknown) to increase her oxygen at home. She is (unknown) (no (unknown) (unknown) prednisone 10 mg (units (unknown) date) tablets in a dose unknown) See Rx Instructions PO .COMPLEX 02/09/23 (unknown) (no (unknown) (unknown) prednisone 10 mg (units (unknown) date) tablets,dose pack unknown) (unknown) (no (unknown) (unknown) primary doctor. (units (unknown) date) She stated that unknown) over the past 12-24 hours she is felt more (unknown) (no (unknown) (unknown) progressed (units (unk nown) date) unknown) (unknown) (no (unknown) (unknown) prominent.? 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 unknown) d/c 07/14/22 (unknown) (no (unknown) (unknown) release (units (unkno wn) date) unknown) (unknown) (no (unknown) (unknown) required more (units ( unknown) date) oxygen. She unknown) expressed understanding and agreement with plan. (unknown) (no (unknown) (unknown) resolution of (units ( unknown) date) unknown) (unknown) (no (unknown) (unknown) respiratory (units (un known) date) status. Is able to unknown) tolerate oral intake. In the fact she is (unknown) (no (unknown) (unknown) rest of your (units (u nknown) date) medications as unknown) directed. Return to the emergency department for (unknown) (no (unknown) (unknown) return precautions (units (unknown) date) and told to return unknown) if any of her symptoms worsen or if she (unknown) (no (unknown) (unknown) soln (units (unkno wn) date) unknown) (unknown) (no (unknown) (unknown) start on day 2 of (units (unknown) date) therapy unknown) (unknown) (no (unknown) (unknown) steroids but no (units (unknown) date) antibiotics. unknown) Patient states she is on steroids but is unsure (unknown) (no (unknown) (unknown) sulfamethoxazole (units (unknown) date) Allergy unknown) Intermediate Rash Verified 02/09/23 18:21 (unknown) (no (unknown) (unknown) tablet (Nitrostat) (units (unknown) date) Pain unknown) (unknown) (no (unknown) (unknown) tablet,extended (units (unknown) date) release 24 hr unknown) (unknown) (no (unknown) (unknown) tobacco type: (units ( unknown) date) cigarettes unknown) (unknown) (no (unknown) (unknown) today does appear (units (unknown) date) to have a new unknown) pneumonia from comparison of a chest x-ray a c (unknown) (no (unknown) (unknown) tomorrow. They (units (unknown) date) were sent to the unknown) pharmacy of her choice. She was given strict (unknown) (no (unknown) (unknown) torsemide 20 mg (units (unknown) date) Tablet unknown) (unknown) (no (unknown) (unknown) torsemide 20 mg (units (unknown) date) tablet 20 mg PO unknown) DAILY 07/24/22 07/24/22 (unknown) (no (unknown) (unknown) trimethoprim [From (units (unknown) date) Bactrim] Allergy unknown) Intermediate Rash Verified 02/09/23 18:21 (unknown) (no (unknown) (unknown) unremarkable.? (units (unknown) date) unknown) (unknown) (no (unknown) (unknown) vitamin E 268 mg (units (unknown) date) (400 unit) capsule unknown) 400 unit PO DAILY 09/10/18 07/24/22 (unknown) (no (unknown) (unknown) vitamin E 400 unit (units (unknown) date) Capsule unknown) (unknown) (no (unknown) (unknown) was described as a (units (unknown) date) COPD exacerbation unknown) according to the note. Was sent home with (unknown) (no (unknown) (unknown) whether not she (units (unknown) date) got them from here unknown) in the emergency department or from her (unknown) (no (unknown) (unknown) x1 day, then 3 (units (unknown) date) tablets p.o. x1 unknown) day, then 2 tablets p.o. x1 day, then 1 tablet Social History date description facility 2022-12-06 00:00 Ex-smoker (finding) [facility] 2022-12-29 00:00 Ex-smoker (finding) [facility] 2023-02-09 00:00 Ex-smoker (finding) [facility] 2023-02-16 00:00 Ex-smoker (finding) [facility] Vital Signs date measurement value units 2022-12-06 00:00 BMI 25.4 kg/m2 2022-12-06 00:00 BP_diastolic 85 mmHg 2022-12-06 00:00 BP_systolic 183 mmHg 2022-12-06 00:00 heart_rate 88 /min 2022-12-06 00:00 height_metric 149.86 cm 2022-12-06 00:00 height_standard 59 in 2022-12-06 00:00 o2_saturation 98 % 2022-12-06 00:00 respiration_rate 22 /min 2022-12-06 00:00 temperature_metric 36.67 C 2022-12-06 00:00 temperature_standard 98 F 2022-12-06 00:00 weight_metric 57.15 kg 2022-12-06 00:00 weight_standard 125.99 lb 2022-12-29 00:00 BMI 25.4 kg/m2 2022-12-29 00:00 BP_diastolic 71 mmHg 2022-12-29 00:00 BP_systolic 139 mmHg 2022-12-29 00:00 heart_rate 74 /min 2022-12-29 00:00 height_metric 149.86 cm 2022-12-29 00:00 height_standard 59 in 2022-12-29 00:00 o2_saturation 97 % 2022-12-29 00:00 respiration_rate 16 /min 2022-12-29 00:00 temperature_metric 36.61 C 2022-12-29 00:00 temperature_standard 97.9 F 2022-12-29 00:00 weight_metric 57.15 kg 2022-12-29 00:00 weight_standard 125.99 lb 2023-02-09 00:00 BMI 25.6 kg/m2 2023-02-09 00:00 BP_diastolic 74 mmHg 2023-02-09 00:00 BP_systolic 163 mmHg 2023-02-09 00:00 heart_rate 75 /min 2023-02-09 00:00 height_metric 149.86 cm 2023-02-09 00:00 height_standard 59 in 2023-02-09 00:00 o2_saturation 97 % 2023-02-09 00:00 respiration_rate 18 /min 2023-02-09 00:00 temperature_metric 36.72 C 2023-02-09 00:00 temperature_standard 98.1 F 2023-02-09 00:00 weight_metric 57.6 kg 2023-02-09 00:00 weight_standard 126.99 lb 2023-02-16 00:00 BMI 25.4 kg/m2 2023-02-16 00:00 BP_diastolic 63 mmHg 2023-02-16 00:00 BP_systolic 133 mmHg 2023-02-16 00:00 heart_rate 74 /min 2023-02-16 00:00 height_metric 149.86 cm 2023-02-16 00:00 height_standard 59 in 2023-02-16 00:00 o2_saturation 95 % 2023-02-16 00:00 respiration_rate 30 /min 2023-02-16 00:00 temperature_metric 36.78 C 2023-02-16 00:00 temperature_standard 98.2 F 2023-02-16 00:00 weight_metric 57.15 kg 2023-02-16 00:00 weight_standard 125.99 lb
--- NOTE | 2023-02-19 16:02 | XRAY Report ---
PROCEDURE: Chest 1 View X-Ray INDICATIONS: cough TECHNIQUE: One view of the chest was acquired. COMPARISON: 11/19/2021 FINDINGS: Surgical changes and devices: Midline sternotomy Lungs and pleura: No pleural effusions or pneumothorax. Focal pneumonia, right upper lobe. Mediastinum: Mediastinal contours appear normal. Cardiomegaly. Bones and chest wall: No suspicious bony lesions. Overlying soft tissues appear unremarkable. IMPRESSION: 1. Cardiomegaly, as before. 2. Focal pneumonia, right upper lobe. Progress films are recommended until clear. Reviewed by: Memo Pelletier MD on 02/19/2023 4:00 PM PDT Approved by: Memo Pelletier MD on 02/19/2023 4:00 PM PDT Station ID: [id number]
--- NOTE | 2023-02-19 16:03 | XRAY Report ---
PROCEDURE: Foot 3 View LT INDICATIONS: foot pain TECHNIQUE: 3 views of the foot were acquired. COMPARISON: None. FINDINGS: Bones: No fractures or dislocations. No suspicious bony lesions. Plantar calcaneal spur. Mild bun ion. Mild tailor bunion. Soft tissues: No suspicious soft tissue calcifications or masses. IMPRESSION: 1. No evidence of acute bony abnormality of the left foot. 2. Plantar calcaneal spur. 3. Mild bunion and mild tailor bunion. Reviewed by: Memo Pelletier MD on 02/19/2023 4:02 PM PDT Approved by: Memo Pelletier MD on 02/19/2023 4:02 PM PDT Station ID: [id number]
[2023-02-19] MEDS ORDERED: cefTRIAXone 1 GM VIAL IVP STA (16:10)
[2023-02-19 16:34] VITALS: BP 105/67
== END 2023-02-19 17:00 | disposition home or self-care (01) ==
LOC: EDUNIT# → ED 14:25
DX: J18.9 Pneumonia, unspecified organism (principal); J44.9 Chronic obstructive pulmonary disease, unspecified; E03.9 Hypothyroidism, unspecified; I25.810 Atherosclerosis of coronary artery bypass graft(s) without angina pectoris; Z95.1 Presence of aortocoronary bypass graft; Z79.82 Long term (current) use of aspirin; Z79.899 Other long term (current) drug therapy
CPT/HCPCS: 36415; 71045; 73630; 80053; 83605; 85025; 96374; 99284; A9270

== ENCOUNTER 2023-03-12 09:20 | Outpatient (CLI) | payer MEDICARE ==
--- NOTE | 2023-03-12 10:36 | XRAY Report ---
PROCEDURE: Foot 3 View LT INDICATIONS: PAIN IN LEFT FOOT TECHNIQUE: 3 views of the foot were acquired. COMPARISON: 02/19/2023 FINDINGS: Bones: No fractures or dislocations. No suspicious bony lesions. Again noted is mild hallux valgus, mild bunion formation, and mild tailor bunion formation. Again noted is a plantar calcaneal spur. Soft tissues: No suspicious soft tissue calcifications or masses. IMPRESSION: Stable findings. No acute bony abnormality. Comment: If symptoms persist, consider foot MRI. Reviewed by: Memo Pelletier MD on 03/12/2023 10:34 AM PDT Approved by: Memo Pelletier MD on 03/12/2023 10:34 AM PDT Station ID: [id number]
== END 2023-03-12 09:21 | disposition home or self-care (01) ==
LOC: DI.N 09:20
PROVIDERS: ATTEND Physician Assistant Medical
DX: M20.12 Hallux valgus (acquired), left foot (principal); M21.612 Bunion of left foot; M77.32 Calcaneal spur, left foot

== ENCOUNTER 2023-03-20 11:47 | Outpatient (CLI) | payer MEDICARE ==
--- NOTE | 2023-03-20 12:38 | XRAY Report ---
PROCEDURE: Chest 2 View X-Ray INDICATIONS: PNEUMONIA TECHNIQUE: 2 views of the chest were acquired. COMPARISON: Chest x-ray 02/19/2023 FINDINGS: Surgical changes and devices: Sternal wires. Lungs and pleura: Previous right upper lobe pneumonia has markedly improved although mild residual p ersists. Mediastinum: Mediastinal contours appear normal. Heart size is enlarged. Bones and chest wall: No suspicious bony lesions. Overlying soft tissues appear unremarkable. IMPRESSION: Markedly improved with minimal residual right upper lobe opacity suggestive of incomplete pneumonia r esolution. Recommend follow-up imaging to document complete resolution and exclude presence of underl gerardo mass lesion. Reviewed by: Katheryn Hall MD on 03/20/2023 12:37 PM PDT Approved by: Katheryn Hall MD on 03/20/2023 12:37 PM PDT Station ID: [id number]
== END 2023-03-20 11:48 | disposition home or self-care (01) ==
LOC: LAB.N 11:47 → DI.N 11:48
PROVIDERS: ATTEND Nurse Practitioner Family
DX: J18.9 Pneumonia, unspecified organism (principal); M79.672 Pain in left foot
CPT/HCPCS: 36415; 84550; 85651; 86140; 86225; 86235; 86430

== ENCOUNTER 2023-03-20 12:06 | Outpatient (CLI) | payer MEDICARE ==
[2023-03-20 18:20] LABS: URIC ACID 8.6 mg/dL (2.6-7.2)
[2023-03-20 18:34] LABS: CRP - C-REACTIVE PROTEIN < 1.0 mg/dL (0-1.0)
[2023-03-20 19:58] LABS: RHEUMATOID FACTOR NEGATIVE (Negative)
[2023-03-21 18:07] LABS: ANTI-DNA (DS) AB QN <1 IU/mL (0-9); CENTROMERE B ANTIBODIES <0.2 AI (0.0-0.9); CHROMATIN ANTIBODIES <0.2 AI (0.0-0.9); JO-1 AB <0.2 AI (0.0-0.9); RIBOSOMAL P ANTIBODIES <0.2 AI (0.0-0.9); RNP ANTIBODIES <0.2 AI (0.0-0.9); SCLERODERMA-70 ANTIBODIES <0.2 AI (0.0-0.9); SJOGREN'S ANTI-SS-A <0.2 AI (0.0-0.9); SJOGREN'S ANTI-SS-B <0.2 AI (0.0-0.9); SMITH ANTIBODIES <0.2 AI (0.0-0.9); SMITH/RNP ANTIBODIES <0.2 AI (0.0-0.9)
== END 2023-03-20 12:07 | disposition home or self-care (01) ==
LOC: LAB.N 12:06
PROVIDERS: ATTEND Nurse Practitioner Family
DX: M79.672 Pain in left foot (principal)
CPT/HCPCS: 36415; 84550; 85651; 86140; 86225; 86235; 86430

== ENCOUNTER 2023-03-23 10:09 | Outpatient (CLI) | payer MEDICARE ==
[2023-03-23 11:49] LABS: BASOPHILS # (AUTO) 0.1 10^3/uL (0.0-0.1); EOSINOPHILS # (AUTO) 0.1 10^3/uL (0.0-0.7); EOSINOPHILS % (AUTO) 1.4 %; HCT - HEMATOCRIT 39.4 % (37.0-47.0); HGB - HEMOGLOBIN 12.4 g/dL (12.0-16.0); LYMPHOCYTES % (AUTO) 13.9 %; MEAN CORPUSCULAR HEMOGLOBIN 28.7 pg (27.0-31.0); MEAN CORPUSCULAR HGB CONC 31.5 g/dL (32.0-36.0); MEAN CORPUSCULAR VOLUME 91.2 fL (81.0-99.0); MEAN PLATELET VOLUME 10.5 fL (7.9-10.8); MONOCYTES # (AUTO) 0.3 10^3/uL (0.0-1.0); MONOCYTES % (AUTO) 4.3 %; NEUTROPHILS # (AUTO) 5.5 10^3/uL (1.5-6.6); PLT - PLATELET COUNT 227 10^3/uL (130-450); RED BLOOD COUNT 4.32 10^6/uL (4.20-5.40); RED CELL DISTRIBUTION WIDTH 13.9 % (12.0-15.0)
[2023-03-23 11:52] LABS: BILIRUBIN,URINE NEGATIVE (NEGATIVE); GLUCOSE, URINE (UA) NEGATIVE (NEGATIVE); KETONES,URINE (UA) NEGATIVE (NEGATIVE); LEUKOCYTE ESTERASE, URINE NEGATIVE (NEGATIVE); NITRITE,URINE NEGATIVE (NEGATIVE); OCCULT BLOOD,URINE TRACE-INTA (NEGATIVE); PROTEIN,URINE NEGATIVE (NEGATIVE); UROBILINOGEN,URINE 0.2 (NORMAL) E.U./dL (NORMAL)
[2023-03-23 11:53] LABS: CLARITY,URINE CLEAR (CLEAR)
[2023-03-23 12:06] LABS: RBC,URINE 0-5 /HPF (0-5); SQUAMOUS EPITHELIAL CELL,UR RARE Squamous (<= Few)
[2023-03-23 12:07] LABS: AMORPHOUS SEDIMENT,UR Few /LPF; BACTERIA,URINE Many /HPF (None Seen); CASTS, URINE >50 Hyaline Casts /LPF
[2023-03-23 12:11] LABS: THYROID STIMULATING HORMONE 3.79 uIU/mL (0.34-5.60)
[2023-03-23 14:31] LABS: ALBUMIN 3.7 g/dL (3.2-5.5); ALBUMIN/GLOBULIN RATIO 1.1 (1.0-2.2); BILIRUBIN,TOTAL 0.7 mg/dL (0.2-1.0); CALCIUM 10.2 mg/dL (8.5-10.3); POTASSIUM 4.3 mmol/L (3.5-5.0); TOTAL PROTEIN 7.2 g/dL (6.7-8.2)
== END 2023-03-23 10:10 | disposition home or self-care (01) ==
LOC: LAB.N 10:09
PROVIDERS: ATTEND Nurse Practitioner Family
DX: R11.0 Nausea (principal); R14.0 Abdominal distension (gaseous)
CPT/HCPCS: 36415; 80053; 81001; 83690; 84443; 85025; 87086

== ENCOUNTER 2023-04-04 13:33 | Outpatient (CLI) | payer MEDICARE | END 2023-04-04 13:34 | disposition critical access hospital (66) | LOC: EMS 13:33 | DX: R42 Dizziness and giddiness (principal); R41.0 Disorientation, unspecified | CPT/HCPCS: A0425; A0429 ==

== ENCOUNTER 2023-04-04 13:50 | Emergency (ER) | payer MEDICARE ==
--- NOTE | 2023-04-04 14:16 | ED Physician Documentation ---
History of Present Illness - Stated complaint Stated Complaint: LIGHT HEADED - Chief complaint Chief Complaint: Neuro - History obtained from History obtained from: Patient - Additonal information Additional information: This is a desean 87-year-old woman with history of coronary bypass and oxygen dependent COPD. She lives here locally with her son. He is blind. She presents after an episode of lightheadedness while grocery shopping today. Almost immediately after initial discussion she states she thinks it is because she is anxious. She has an upcoming trip to [place] in a few days and does not know if she should go or not. If she did go she would leave her blind son here by himself, so she is very anxious about going but also really wants to go. 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: Hysterectomy Cardiovascular: CABG HEENT: Tonsil/Adenoidectomy - Present Medications Home Medications: Ambulatory Orders Medication Instructions Recorded Confirmed Aspirin 162 mg PO DAILY 07/12/17 09/11/17 Levothyroxine Sodium [Synthroid] 50 mcg PO DAILY 07/12/17 09/11/17 lisinopriL [Lisinopril] 40 mg PO DAILY 07/12/17 09/11/17 Albuterol 2.5 mg INH BID PRN 09/11/17 09/11/17 Amlodipine Besylate 10 mg PO DAILY 09/11/17 09/11/17 [place]-3 Acid Ethyl Esters [Lovaza] 1 gm PO DAILY 09/11/17 09/11/17 Triamterene/Hydrochlorothiazid 1 tab PO DAILY 09/11/17 09/11/17 [Triamterene-Hctz 37.5-25 mg Tb] Azithromycin [Zithromax] 1 gm PO UD #1 packet 09/13/17 methylPREDNISolone [Medrol] 4 mg PO UD #1 tab.ds.pk 09/13/17 Doxycycline Monohydrate 100 mg PO BID #14 tablet 07/03/20 predniSONE [Deltasone] 10 mg PO DAILY #14 tablet 07/03/20 Amoxicillin 2 tab PO TID #30 cap 04/24/23 HYDROcod/ACETAM 5/325 [Seminary 5/325] 1 - 2 tab PO Q6H PRN #15 tablet 02/19/23 - Allergies Allergies/Adverse Reactions: Allergies Allergy/AdvReac Type Severity Reaction Status Date / Time unknown antibiotic Allergy Unknown Uncoded 04/04/23 14:04 - Social History Does the pt smoke?: No Smoking Status: Never smoker Does the pt drink ETOH?: No Does the pt have substance abuse?: No - Immunizations Immunizations are current?: Yes - POLST Patient has POLST: No PD ED PE NORMAL - Vitals Vital signs reviewed: Yes - General General: Alert and oriented X 3, No acute distress - HEENT HEENT: PERRL, EOMI - Neck Neck: Supple, no meningeal sign, No bony TTP - Cardiac Cardiac: RRR, Other (There is a 3 out of 6 decrescendo holosystolic murmur heard at the right upper sternal border) - Respiratory Respiratory: No respiratory distress, Clear bilaterally - Abdomen Abdomen: Non tender - Extremities Extremities: No edema, No calf tenderness / cord - Neuro Neuro: Alert and oriented X 3, Normal speech - Psych Psych: Normal mood, Normal affect Results - Vitals Vitals: Vital Signs - 24 hr 04/04/23 04/04/23 04/04/23 14:02 14:04 14:25 Temperature 36.5 C Heart Rate 63 64 62 Respiratory 19 19 Rate Blood Pressure 183/70 H 190/92 H O2 Saturation 97 100 100 If not protocol 2 2 : Oxygen Flow, liters/minute Oxygen O2 Source Nasal cannula - EKG (time done) 1439 EKG releavant findings:: EKG personally interpreted by author of this note. Relevant findings are: Rate: Rate (enter#) (58) Rhythm: NSR Intervals: RBBB QRS: LVH Ischemia: Non specific changes. No: ST elevation c/w ischemia Compare to prior EKG: Unchanged from prior EKG (Compared with September 11, 2017, she has fewer PVCs now, otherwise no significant change) - Labs Labs: Laboratory Tests 04/04/23 04/04/23 14:39 14:39 WBC 6.4 RBC 4.52 Hgb 13.0 Hct 40.7 MCV 90.0 MCH 28.8 MCHC 31.9 L RDW 13.8 Plt Count 221 MPV 10.3 Neut # (Auto) 4.8 Lymph # (Auto) 1.0 L Gregory # (Auto) 0.5 Eos # (Auto) 0.1 Baso # (Auto) 0.0 Absolute Nucleated RBC 0.00 Nucleated RBC % 0.0 Sodium 138 Potassium 4.5 Chloride 101 Carbon Dioxide 30 Anion Gap 7.0 BUN 16 Creatinine 1.0 Estimated GFR (MDRD) 53 L Glucose 113 H Calcium 10.0 PD Medical Decision Making - ED course ED course: This is a desean 87-year-old woman after an episode of nonspecific dizziness with negative work-up here, unchanged EKG, normal CBC, normal BMP. She thinks this is related to anxiety about a potential upcoming trip to [place]. She is very excited to go but worried about leaving her son who can actually care for himself and has a lot of support in the community. I encouraged her to go. Departure - Departure Disposition: Home, Self Care Clinical Impression: Dizziness Condition: Good Record reviewed to determine appropriate education?: Yes Instructions: ED Dizziness [facility] Comments: You should take the trip. I do not think you will regret it. Work-up here was unremarkable with normal labs and EKG unchanged from prior. Call your doctor to arrange a follow-up appointment, make the next available appointment. In the interim, return anytime if worse or if new symptoms develop.
[2023-04-04 14:35] VITALS: BP 190/92
[2023-04-04 14:43] LABS: BASOPHILS % (AUTO) 0.3 %; EOSINOPHILS # (AUTO) 0.1 10^3/uL (0.0-0.7); EOSINOPHILS % (AUTO) 1.7 %; HCT - HEMATOCRIT 40.7 % (37.0-47.0); LYMPHOCYTES % (AUTO) 15.3 %; MEAN CORPUSCULAR HEMOGLOBIN 28.8 pg (27.0-31.0); MEAN CORPUSCULAR HGB CONC 31.9 g/dL (32.0-36.0); MEAN PLATELET VOLUME 10.3 fL (7.9-10.8); MONOCYTES # (AUTO) 0.5 10^3/uL (0.0-1.0); NEUTROPHILS # (AUTO) 4.8 10^3/uL (1.5-6.6); NEUTROPHILS % (AUTO) 74.5 %; PLT - PLATELET COUNT 221 10^3/uL (130-450); RED BLOOD COUNT 4.52 10^6/uL (4.20-5.40); RED CELL DISTRIBUTION WIDTH 13.8 % (12.0-15.0); WHITE BLOOD COUNT 6.4 x10^3/uL (4.8-10.8)
[2023-04-04 14:52] LABS: POTASSIUM 4.5 mmol/L (3.5-5.0)
== END 2023-04-04 15:40 | disposition home or self-care (01) ==
LOC: EDUNIT# → ED 13:50
DX: R42 Dizziness and giddiness (principal); I10 Essential (primary) hypertension; J44.9 Chronic obstructive pulmonary disease, unspecified; E03.9 Hypothyroidism, unspecified; I25.810 Atherosclerosis of coronary artery bypass graft(s) without angina pectoris; Z99.81 Dependence on supplemental oxygen; Z79.899 Other long term (current) drug therapy; Z95.1 Presence of aortocoronary bypass graft; Z79.82 Long term (current) use of aspirin
CPT/HCPCS: 36415; 80048; 85025; 93005; 99283

== ENCOUNTER 2023-04-10 09:00 | Outpatient (CLI) | payer MEDICARE ==
[2023-04-10 11:50] LABS: BILIRUBIN,URINE NEGATIVE (NEGATIVE); GLUCOSE, URINE (UA) NEGATIVE (NEGATIVE); KETONES,URINE (UA) NEGATIVE (NEGATIVE); LEUKOCYTE ESTERASE, URINE SMALL (NEGATIVE); NITRITE,URINE NEGATIVE (NEGATIVE); OCCULT BLOOD,URINE NEGATIVE (NEGATIVE); PROTEIN,URINE NEGATIVE (NEGATIVE); UROBILINOGEN,URINE 0.2 (NORMAL) E.U./dL (NORMAL)
[2023-04-10 11:59] LABS: WBC,URINE >25 /HPF (0-5)
[2023-04-10 12:00] LABS: BACTERIA,URINE Few /HPF (None Seen); CLARITY,URINE CLEAR (CLEAR); MUCUS,URINE Moderate Strands; RBC,URINE 0-5 /HPF (0-5); SQUAMOUS EPITHELIAL CELL,UR FEW Squamous (<= Few)
== END 2023-04-10 09:15 | disposition home or self-care (01) ==
LOC: LAB.N 09:00
PROVIDERS: ATTEND Specialist
DX: R30.0 Dysuria (principal)
CPT/HCPCS: 81001; 87086

== ENCOUNTER 2023-04-20 22:29 | Outpatient (CLI) | payer MEDICARE | END 2023-04-20 23:59 | disposition critical access hospital (66) | LOC: EMS 22:29 | DX: R05.9 Cough, unspecified (principal); R07.89 Other chest pain; R09.89 Other specified symptoms and signs involving the circulatory and respiratory systems; R11.10 Vomiting, unspecified | CPT/HCPCS: A0425; A0429 ==

== ENCOUNTER 2023-04-20 22:53 | Emergency (ER) | payer MEDICARE ==
--- OUTSIDE RECORDS SUMMARY | 2023-04-20 23:17 | EXTERNAL MEDICAL SUMMARY RPT | Continuity of Care Document ---
Author Name Unknown Address [address] [place] [address] Phone Organization [facility] Address [address] [place] [address] Phone Care Team Providers Care Budder Name Role Phone Unavailable Unavailable Unavailable Ramón Azul Unavailable Unavailable Allergies and Intolerances date description facility type (no date) Mild [facility] (unknown) (no date) Sulfa (Sulfonamide Antibiotics) [facility] (unknown) (no date) acarbose [facility] (unknown) (no date) amlodipine [facility] (unknown) (no date) budesonide [facility] (unknown) (no date) carvedilol [facility] (unknown) (no date) chlorthalidone [facility] (unknown) (no date) choline fenofibrate [facility] (unkn own) (no date) doxazosin [facility] (unknown) (no date) doxycycline [facility] (unknown) (no date) formoterol [facility] (unknown) (no date) gemfibrozil [facility] (unknown) (no date) levofloxacin [facility] (unknown) (no date) losartan [facility] (unknown) (no date) metoprolol [facility] (unknown) (no date) montelukast [facility] (unknown) (no date) nifedipine [facility] (unknown) (no date) sulfamethoxazole [facility] (unknown ) (no date) trimethoprim [facility] (unknown) Medications date description facility 2023-02-16 00:00 Azithromycin [facility] 2023-02-09 00:00 Prednisone [facility] Problems date description facility 2023-02-09 00:00 Acute exacerbation o f chronic obstructive pulmonary disease [facility] 2023-02-16 00:00 Pneumonia [facility] Procedures date description facility 2023-02-09 00:00 X-ray of chest, [facility] 2023-02-16 00:00 X-ray of chest, [facility] Results/Labs test date author facility value unit interpretation Result panel 1 (unknown) (no date) (unknown) [facility] (no value) (units unknown) (unknown) Result panel 2 (unknown) (no date) (unknown) [facility] (no value) (units unknown) (unknown) Result panel 3 (unknown) (no date) (unknown) [facility] (no value) (units unknown) (unknown) Result panel 4 (unknown) (no date) (unknown) [facility] (no value) (units unknown) (unknown) Result panel 5 (unknown) (no date) (unknown) [facility] (no value) (units unknown) (unknown) Result panel 6 (unknown) (no date) (unknown) [facility] (no value) (units unknown) (unknown) Result panel 7 (unknown) (no date) (unknown) [facility] (no value) (units unknown) (unknown) Result panel 8 (unknown) (no date) (unknown) [facility] (no value) (units unknown) (unknown) Result panel 9 (unknown) (no date) (unknown) [facility] (no value) (units unknown) (unknown) Result panel 10 (unknown) (no date) (unknown) [facility] (no value) (units unknown) (unknown) Result panel 11 (unknown) (no date) (unknown) [facility] (no value) (units unknown) (unknown) Result panel 12 (unknown) (no date) (unknown) [facility] (no value) (units unknown) (unknown) Result panel 13 (unknown) (no date) (unknown) [facility] (no value) (units unknown) (unknown) Result panel 14 (unknown) (no date) (unknown) [facility] (no value) (units unknown) (unknown) Result panel 15 (unknown) (no date) (unknown) [facility] (no value) (units unknown) (unknown) Result panel 16 (unknown) (no date) (unknown) [facility] (no value) (units unknown) (unknown) Result panel 17 (unknown) (no date) (unknown) [facility] (no value) (units unknown) (unknown) Result panel 18 (unknown) (no date) (unknown) [facility] (no value) (units unknown) (unknown) Result panel 19 (unknown) (no date) (unknown) [facility] (no value) (units unknown) (unknown) Result panel 20 (unknown) (no date) (unknown) [facility] (no value) (units unknown) (unknown) Result panel 21 (unknown) (no date) (unknown) [facility] (no value) (units unknown) (unknown) Result panel 22 (unknown) (no date) (unknown) [facility] (no value) (units unknown) (unknown) Result panel 23 (unknown) (no date) (unknown) [facility] (no value) (units unknown) (unknown) Result panel 24 (unknown) (no date) (unknown) [facility] (no value) (units unknown) (unknown) Result panel 25 (unknown) (no date) (unknown) [facility] (no value) (units unknown) (unknown) Result panel 26 (unknown) (no date) (unknown) [facility] (no value) (units unknown) (unknown) Result panel 27 (unknown) (no date) (unknown) [facility] (no value) (units unknown) (unknown) Result panel 28 (unknown) (no date) (unknown) [facility] (no value) (units unknown) (unknown) Result panel 29 (unknown) (no date) (unknown) [facility] (no value) (units unknown) (unknown) Result panel 30 (unknown) (no date) (unknown) [facility] (no value) (units unknown) (unknown) Result panel 31 (unknown) (no date) (unknown) [facility] (no value) (units unknown) (unknown) Result panel 32 (unknown) (no date) (unknown) [facility] (no value) (units unknown) (unknown) Result panel 33 (unknown) (no date) (unknown) [facility] (no value) (units unknown) (unknown) Result panel 34 (unknown) (no date) (unknown) [facility] (no value) (units unknown) (unknown) Result panel 35 (unknown) (no date) (unknown) [facility] (no value) (units unknown) (unknown) Result panel 36 (unknown) (no date) (unknown) [facility] (no value) (units unknown) (unknown) Result panel 37 (unknown) (no date) (unknown) [facility] (no value) (units unknown) (unknown) Result panel 38 (unknown) (no date) (unknown) [facility] (no value) (units unknown) (unknown) Result panel 39 (unknown) (no date) (unknown) [facility] (no value) (units unknown) (unknown) Result panel 40 (unknown) (no date) (unknown) [facility] (no value) (units unknown) (unknown) Result panel 41 (unknown) (no date) (unknown) [facility] (no value) (units unknown) (unknown) Result panel 42 (unknown) (no date) (unknown) [facility] (no value) (units unknown) (unknown) Result panel 43 (unknown) (no date) (unknown) [facility] (no value) (units unknown) (unknown) Result panel 44 (unknown) (no date) (unknown) [facility] (no value) (units unknown) (unknown) Result panel 45 (unknown) (no date) (unknown) [facility] (no value) (units unknown) (unknown) Result panel 46 (unknown) (no date) (unknown) [facility] (no value) (units unknown) (unknown) Result panel 47 (unknown) (no date) (unknown) [facility] (no value) (units unknown) (unknown) Result panel 48 (unknown) (no date) (unknown) [facility] (no value) (units unknown) (unknown) Result panel 49 (unknown) (no date) (unknown) [facility] (no value) (units unknown) (unknown) Result panel 50 (unknown) (no date) (unknown) [facility] (no value) (units unknown) (unknown) Result panel 51 (unknown) (no date) (unknown) [facility] (no value) (units unknown) (unknown) Result panel 52 (unknown) (no date) (unknown) [facility] (no value) (units unknown) (unknown) Result panel 53 (unknown) (no date) (unknown) [facility] (no value) (units unknown) (unknown) Result panel 54 (unknown) (no date) (unknown) [facility] (no value) (units unknown) (unknown) Result panel 55 (unknown) (no date) (unknown) [facility] (no value) (units unknown) (unknown) Result panel 56 (unknown) (no date) (unknown) [facility] (no value) (units unknown) (unknown) Result panel 57 (unknown) (no date) (unknown) [facility] (no value) (units unknown) (unknown) Result panel 58 (unknown) (no date) (unknown) [facility] (no value) (units unknown) (unknown) Result panel 59 (unknown) (no date) (unknown) [facility] (no value) (units unknown) (unknown) Result panel 60 (unknown) (no date) (unknown) [facility] (no value) (units unknown) (unknown) Result panel 61 (unknown) (no date) (unknown) [facility] (no value) (units unknown) (unknown) Result panel 62 (unknown) (no date) (unknown) [facility] (no value) (units unknown) (unknown) Result panel 63 (unknown) (no date) (unknown) [facility] (no value) (units unknown) (unknown) Result panel 64 (unknown) (no date) (unknown) [facility] (no value) (units unknown) (unknown) Result panel 65 (unknown) (no date) (unknown) [facility] (no value) (units unknown) (unknown) Result panel 66 (unknown) (no date) (unknown) [facility] (no value) (units unknown) (unknown) Result panel 67 (unknown) (no date) (unknown) [facility] (no value) (units unknown) (unknown) Result panel 68 (unknown) (no date) (unknown) [facility] (no value) (units unknown) (unknown) Result panel 69 (unknown) (no date) (unknown) [facility] (no value) (units unknown) (unknown) Result panel 70 (unknown) (no date) (unknown) [facility] (no value) (units unknown) (unknown) Result panel 71 (unknown) (no date) (unknown) [facility] (no value) (units unknown) (unknown) Result panel 72 (unknown) (no date) (unknown) [facility] (no value) (units unknown) (unknown) Result panel 73 (unknown) (no date) (unknown) [facility] (no value) (units unknown) (unknown) Result panel 74 (unknown) (no date) (unknown) [facility] (no value) (units unknown) (unknown) Result panel 75 (unknown) (no date) (unknown) [facility] (no value) (units unknown) (unknown) Result panel 76 (unknown) (no date) (unknown) [facility] (no value) (units unknown) (unknown) Result panel 77 (unknown) (no date) (unknown) [facility] (no value) (units unknown) (unknown) Result panel 78 (unknown) (no date) (unknown) [facility] (no value) (units unknown) (unknown) Result panel 79 (unknown) (no date) (unknown) [facility] (no value) (units unknown) (unknown) Result panel 80 (unknown) (no date) (unknown) [facility] (no value) (units unknown) (unknown) Result panel 81 (unknown) (no date) (unknown) [facility] (no value) (units unknown) (unknown) Result panel 82 (unknown) (no date) (unknown) [facility] (no value) (units unknown) (unknown) Result panel 83 (unknown) (no date) (unknown) [facility] (no value) (units unknown) (unknown) Result panel 84 (unknown) (no date) (unknown) [facility] (no value) (units unknown) (unknown) Result panel 85 (unknown) (no date) (unknown) [facility] (no value) (units unknown) (unknown) Result panel 86 (unknown) (no date) (unknown) [facility] (no value) (units unknown) (unknown) Result panel 87 (unknown) (no date) (unknown) [facility] (no value) (units unknown) (unknown) Result panel 88 (unknown) (no date) (unknown) [facility] (no value) (units unknown) (unknown) Result panel 89 (unknown) (no date) (unknown) [facility] (no value) (units unknown) (unknown) Result panel 90 (unknown) (no date) (unknown) [facility] (no value) (units unknown) (unknown) Result panel 91 (unknown) (no date) (unknown) [facility] (no value) (units unknown) (unknown) Result panel 92 (unknown) (no date) (unknown) [facility] (no value) (units unknown) (unknown) Result panel 93 (unknown) (no date) (unknown) [facility] (no value) (units unknown) (unknown) Result panel 94 (unknown) (no date) (unknown) [facility] (no value) (units unknown) (unknown) Result panel 95 (unknown) (no date) (unknown) [facility] (no value) (units unknown) (unknown) Result panel 96 (unknown) (no date) (unknown) [facility] (no value) (units unknown) (unknown) Result panel 97 (unknown) (no date) (unknown) [facility] (no value) (units unknown) (unknown) Result panel 98 (unknown) (no date) (unknown) [facility] (no value) (units unknown) (unknown) Result panel 99 (unknown) (no date) (unknown) [facility] (no value) (units unknown) (unknown) Result panel 100 (unknown) (no date) (unknown) [facility] (no value) (units unknown) (unknown) Result panel 101 (unknown) (no date) (unknown) [facility] (no value) (units unknown) (unknown) Result panel 102 (unknown) (no date) (unknown) [facility] (no value) (units unknown) (unknown) Result panel 103 (unknown) (no date) (unknown) [facility] (no value) (units unknown) (unknown) Result panel 104 (unknown) (no date) (unknown) [facility] (no value) (units unknown) (unknown) Result panel 105 (unknown) (no date) (unknown) [facility] (no value) (units unknown) (unknown) Result panel 106 (unknown) (no date) (unknown) [facility] (no value) (units unknown) (unknown) Result panel 107 (unknown) (no date) (unknown) [facility] (no value) (units unknown) (unknown) Result panel 108 (unknown) (no date) (unknown) [facility] (no value) (units unknown) (unknown) Result panel 109 (unknown) (no date) (unknown) [facility] (no value) (units unknown) (unknown) Result panel 110 (unknown) (no date) (unknown) [facility] (no value) (units unknown) (unknown) Result panel 111 (unknown) (no date) (unknown) [facility] (no value) (units unknown) (unknown) Result panel 112 (unknown) (no date) (unknown) [facility] (no value) (units unknown) (unknown) Result panel 113 (unknown) (no date) (unknown) [facility] (no value) (units unknown) (unknown) Result panel 114 (unknown) (no date) (unknown) [facility] (no value) (units unknown) (unknown) Result panel 115 (unknown) (no date) (unknown) [facility] (no value) (units unknown) (unknown) Result panel 116 (unknown) (no date) (unknown) [facility] (no value) (units unknown) (unknown) Result panel 117 (unknown) (no date) (unknown) [facility] (no value) (units unknown) (unknown) Result panel 118 (unknown) (no date) (unknown) [facility] (no value) (units unknown) (unknown) Result panel 119 (unknown) (no date) (unknown) [facility] (no value) (units unknown) (unknown) Result panel 120 (unknown) (no date) (unknown) [facility] (no value) (units unknown) (unknown) Result panel 121 (unknown) (no date) (unknown) [facility] (no value) (units unknown) (unknown) Result panel 122 (unknown) (no date) (unknown) [facility] (no value) (units unknown) (unknown) Result panel 123 (unknown) (no date) (unknown) [facility] (no value) (units unknown) (unknown) Result panel 124 (unknown) (no date) (unknown) [facility] (no value) (units unknown) (unknown) Result panel 125 (unknown) (no date) (unknown) [facility] (no value) (units unknown) (unknown) Result panel 126 (unknown) (no date) (unknown) [facility] (no value) (units unknown) (unknown) Result panel 127 (unknown) (no date) (unknown) [facility] (no value) (units unknown) (unknown) Result panel 128 (unknown) (no date) (unknown) [facility] (no value) (units unknown) (unknown) Result panel 129 (unknown) (no date) (unknown) [facility] (no value) (units unknown) (unknown) Result panel 130 (unknown) (no date) (unknown) [facility] (no value) (units unknown) (unknown) Result panel 131 (unknown) (no date) (unknown) [facility] (no value) (units unknown) (unknown) Result panel 132 (unknown) (no date) (unknown) [facility] (no value) (units unknown) (unknown) Result panel 133 (unknown) (no date) (unknown) [facility] (no value) (units unknown) (unknown) Result panel 134 (unknown) (no date) (unknown) [facility] (no value) (units unknown) (unknown) Result panel 135 (unknown) (no date) (unknown) [facility] (no value) (units unknown) (unknown) Result panel 136 (unknown) (no date) (unknown) [facility] (no value) (units unknown) (unknown) Result panel 137 (unknown) (no date) (unknown) [facility] (no value) (units unknown) (unknown) Result panel 138 (unknown) (no date) (unknown) [facility] (no value) (units unknown) (unknown) Result panel 139 (unknown) (no date) (unknown) [facility] (no value) (units unknown) (unknown) Result panel 140 (unknown) (no date) (unknown) [facility] (no value) (units unknown) (unknown) Result panel 141 (unknown) (no date) (unknown) [facility] (no value) (units unknown) (unknown) Result panel 142 (unknown) (no date) (unknown) [facility] (no value) (units unknown) (unknown) Result panel 143 (unknown) (no date) (unknown) [facility] (no value) (units unknown) (unknown) Result panel 144 (unknown) (no date) (unknown) [facility] (no value) (units unknown) (unknown) Result panel 145 (unknown) (no date) (unknown) [facility] (no value) (units unknown) (unknown) Result panel 146 (unknown) (no date) (unknown) [facility] (no value) (units unknown) (unknown) Result panel 147 (unknown) (no date) (unknown) [facility] (no value) (units unknown) (unknown) Result panel 148 (unknown) (no date) (unknown) [facility] (no value) (units unknown) (unknown) Result panel 149 (unknown) (no date) (unknown) [facility] (no value) (units unknown) (unknown) Result panel 150 (unknown) (no date) (unknown) [facility] (no value) (units unknown) (unknown) Result panel 151 (unknown) (no date) (unknown) [facility] (no value) (units unknown) (unknown) Result panel 152 (unknown) (no date) (unknown) [facility] (no value) (units unknown) (unknown) Result panel 153 (unknown) (no date) (unknown) [facility] (no value) (units unknown) (unknown) Result panel 154 (unknown) (no date) (unknown) [facility] (no value) (units unknown) (unknown) Result panel 155 (unknown) (no date) (unknown) [facility] (no value) (units unknown) (unknown) Result panel 156 (unknown) (no date) (unknown) [facility] (no value) (units unknown) (unknown) Result panel 157 (unknown) (no date) (unknown) [facility] (no value) (units unknown) (unknown) Result panel 158 (unknown) (no date) (unknown) [facility] (no value) (units unknown) (unknown) Result panel 159 (unknown) (no date) (unknown) [facility] (no value) (units unknown) (unknown) Result panel 160 (unknown) (no date) (unknown) [facility] (no value) (units unknown) (unknown) Result panel 161 (unknown) (no date) (unknown) [facility] (no value) (units unknown) (unknown) Result panel 162 (unknown) (no date) (unknown) [facility] (no value) (units unknown) (unknown) Result panel 163 (unknown) (no date) (unknown) [facility] (no value) (units unknown) (unknown) Result panel 164 (unknown) (no date) (unknown) [facility] (no value) (units unknown) (unknown) Result panel 165 (unknown) (no date) (unknown) [facility] (no value) (units unknown) (unknown) Result panel 166 (unknown) (no date) (unknown) [facility] (no value) (units unknown) (unknown) Result panel 167 (unknown) (no date) (unknown) [facility] (no value) (units unknown) (unknown) Result panel 168 (unknown) (no date) (unknown) [facility] (no value) (units unknown) (unknown) Result panel 169 (unknown) (no date) (unknown) [facility] (no value) (units unknown) (unknown) Result panel 170 (unknown) (no date) (unknown) [facility] (no value) (units unknown) (unknown) Result panel 171 (unknown) (no date) (unknown) [facility] (no value) (units unknown) (unknown) Result panel 172 (unknown) (no date) (unknown) [facility] (no value) (units unknown) (unknown) Result panel 173 (unknown) (no date) (unknown) [facility] (no value) (units unknown) (unknown) Result panel 174 (unknown) (no date) (unknown) [facility] (no value) (units unknown) (unknown) Result panel 175 (unknown) (no date) (unknown) [facility] (no value) (units unknown) (unknown) Result panel 176 (unknown) (no date) (unknown) [facility] (no value) (units unknown) (unknown) Result panel 177 (unknown) (no date) (unknown) [facility] (no value) (units unknown) (unknown) Result panel 178 (unknown) (no date) (unknown) [facility] (no value) (units unknown) (unknown) Result panel 179 (unknown) (no date) (unknown) [facility] (no value) (units unknown) (unknown) Result panel 180 (unknown) (no date) (unknown) [facility] (no value) (units unknown) (unknown) Result panel 181 (unknown) (no date) (unknown) [facility] (no value) (units unknown) (unknown) Result panel 182 (unknown) (no date) (unknown) [facility] (no value) (units unknown) (unknown) Result panel 183 (unknown) (no date) (unknown) [facility] (no value) (units unknown) (unknown) Result panel 184 (unknown) (no date) (unknown) [facility] (no value) (units unknown) (unknown) Result panel 185 (unknown) (no date) (unknown) [facility] (no value) (units unknown) (unknown) Result panel 186 (unknown) (no date) (unknown) [facility] (no value) (units unknown) (unknown) Result panel 187 (unknown) (no date) (unknown) [facility] (no value) (units unknown) (unknown) Result panel 188 (unknown) (no date) (unknown) [facility] (no value) (units unknown) (unknown) Result panel 189 (unknown) (no date) (unknown) [facility] (no value) (units unknown) (unknown) Result panel 190 (unknown) (no date) (unknown) [facility] (no value) (units unknown) (unknown) Result panel 191 (unknown) (no date) (unknown) [facility] (no value) (units unknown) (unknown) Result panel 192 (unknown) (no date) (unknown) [facility] (no value) (units unknown) (unknown) Result panel 193 (unknown) (no date) (unknown) [facility] (no value) (units unknown) (unknown) Result panel 194 (unknown) (no date) (unknown) [facility] (no value) (units unknown) (unknown) Result panel 195 (unknown) (no date) (unknown) [facility] (no value) (units unknown) (unknown) Result panel 196 (unknown) (no date) (unknown) [facility] (no value) (units unknown) (unknown) Result panel 197 (unknown) (no date) (unknown) [facility] (no value) (units unknown) (unknown) Result panel 198 (unknown) (no date) (unknown) [facility] (no value) (units unknown) (unknown) Result panel 199 (unknown) (no date) (unknown) [facility] (no value) (units unknown) (unknown) Result panel 200 (unknown) (no date) (unknown) [facility] (no value) (units unknown) (unknown) Result panel 201 (unknown) (no date) (unknown) [facility] (no value) (units unknown) (unknown) Result panel 202 (unknown) (no date) (unknown) [facility] (no value) (units unknown) (unknown) Result panel 203 (unknown) (no date) (unknown) [facility] (no value) (units unknown) (unknown) Result panel 204 (unknown) (no date) (unknown) [facility] (no value) (units unknown) (unknown) Result panel 205 (unknown) (no date) (unknown) [facility] (no value) (units unknown) (unknown) Result panel 206 (unknown) (no date) (unknown) [facility] (no value) (units unknown) (unknown) Result panel 207 (unknown) (no date) (unknown) [facility] (no value) (units unknown) (unknown) Result panel 208 (unknown) (no date) (unknown) [facility] (no value) (units unknown) (unknown) Result panel 209 (unknown) (no date) (unknown) [facility] (no value) (units unknown) (unknown) Result panel 210 (unknown) (no date) (unknown) [facility] (no value) (units unknown) (unknown) Result panel 211 (unknown) (no date) (unknown) [facility] (no value) (units unknown) (unknown) Result panel 212 (unknown) (no date) (unknown) [facility] (no value) (units unknown) (unknown) Result panel 213 (unknown) (no date) (unknown) [facility] (no value) (units unknown) (unknown) Result panel 214 (unknown) (no date) (unknown) [facility] (no value) (units unknown) (unknown) Result panel 215 (unknown) (no date) (unknown) [facility] (no value) (units unknown) (unknown) Result panel 216 (unknown) (no date) (unknown) [facility] (no value) (units unknown) (unknown) Result panel 217 (unknown) (no date) (unknown) [facility] (no value) (units unknown) (unknown) Result panel 218 (unknown) (no date) (unknown) [facility] (no value) (units unknown) (unknown) Result panel 219 (unknown) (no date) (unknown) [facility] (no value) (units unknown) (unknown) Result panel 220 (unknown) (no date) (unknown) [facility] (no value) (units unknown) (unknown) Result panel 221 (unknown) (no date) (unknown) [facility] (no value) (units unknown) (unknown) Result panel 222 (unknown) (no date) (unknown) [facility] (no value) (units unknown) (unknown) Result panel 223 (unknown) (no date) (unknown) [facility] (no value) (units unknown) (unknown) Result panel 224 (unknown) (no date) (unknown) [facility] (no value) (units unknown) (unknown) Result panel 225 (unknown) (no date) (unknown) [facility] (no value) (units unknown) (unknown) Result panel 226 (unknown) (no date) (unknown) [facility] (no value) (units unknown) (unknown) Result panel 227 (unknown) (no date) (unknown) [facility] (no value) (units unknown) (unknown) Result panel 228 (unknown) (no date) (unknown) [facility] (no value) (units unknown) (unknown) Result panel 229 (unknown) (no date) (unknown) [facility] (no value) (units unknown) (unknown) Result panel 230 (unknown) (no date) (unknown) [facility] (no value) (units unknown) (unknown) Result panel 231 (unknown) (no date) (unknown) [facility] (no value) (units unknown) (unknown) Result panel 232 (unknown) (no date) (unknown) [facility] (no value) (units unknown) (unknown) Result panel 233 (unknown) (no date) (unknown) [facility] (no value) (units unknown) (unknown) Result panel 234 (unknown) (no date) (unknown) [facility] (no value) (units unknown) (unknown) Result panel 235 (unknown) (no date) (unknown) [facility] (no value) (units unknown) (unknown) Result panel 236 (unknown) (no date) (unknown) [facility] (no value) (units unknown) (unknown) Result panel 237 (unknown) (no date) (unknown) [facility] (no value) (units unknown) (unknown) Result panel 238 (unknown) (no date) (unknown) [facility] (no value) (units unknown) (unknown) Result panel 239 (unknown) (no date) (unknown) [facility] (no value) (units unknown) (unknown) Result panel 240 (unknown) (no date) (unknown) [facility] (no value) (units unknown) (unknown) Result panel 241 (unknown) (no date) (unknown) [facility] (no value) (units unknown) (unknown) Result panel 242 (unknown) (no date) (unknown) [facility] (no value) (units unknown) (unknown) Result panel 243 (unknown) (no date) (unknown) [facility] (no value) (units unknown) (unknown) Result panel 244 (unknown) (no date) (unknown) [facility] (no value) (units unknown) (unknown) Result panel 245 (unknown) (no date) (unknown) [facility] (no value) (units unknown) (unknown) Result panel 246 (unknown) (no date) (unknown) [facility] (no value) (units unknown) (unknown) Result panel 247 (unknown) (no date) (unknown) [facility] (no value) (units unknown) (unknown) Result panel 248 (unknown) (no date) (unknown) [facility] (no value) (units unknown) (unknown) Result panel 249 (unknown) (no date) (unknown) [facility] (no value) (units unknown) (unknown) Result panel 250 (unknown) (no date) (unknown) [facility] (no value) (units unknown) (unknown) Result panel 251 (unknown) (no date) (unknown) [facility] (no value) (units unknown) (unknown) Result panel 252 (unknown) (no date) (unknown) [facility] (no value) (units unknown) (unknown) Result panel 253 (unknown) (no date) (unknown) [facility] (no value) (units unknown) (unknown) Result panel 254 (unknown) (no date) (unknown) [facility] (no value) (units unknown) (unknown) Result panel 255 (unknown) (no date) (unknown) [facility] (no value) (units unknown) (unknown) Result panel 256 (unknown) (no date) (unknown) [facility] (no value) (units unknown) (unknown) Result panel 257 (unknown) (no date) (unknown) [facility] (no value) (units unknown) (unknown) Result panel 258 (unknown) (no date) (unknown) [facility] (no value) (units unknown) (unknown) Result panel 259 (unknown) (no date) (unknown) [facility] (no value) (units unknown) (unknown) Result panel 260 (unknown) (no date) (unknown) [facility] (no value) (units unknown) (unknown) Result panel 261 (unknown) (no date) (unknown) [facility] (no value) (units unknown) (unknown) Result panel 262 (unknown) (no date) (unknown) [facility] (no value) (units unknown) (unknown) Result panel 263 (unknown) (no date) (unknown) [facility] (no value) (units unknown) (unknown) Result panel 264 (unknown) (no date) (unknown) [facility] (no value) (units unknown) (unknown) Result panel 265 (unknown) (no date) (unknown) [facility] (no value) (units unknown) (unknown) Result panel 266 (unknown) (no date) (unknown) [facility] (no value) (units unknown) (unknown) Result panel 267 (unknown) (no date) (unknown) [facility] (no value) (units unknown) (unknown) Result panel 268 (unknown) (no date) (unknown) [facility] (no value) (units unknown) (unknown) Result panel 269 (unknown) (no date) (unknown) [facility] (no value) (units unknown) (unknown) Result panel 270 (unknown) (no date) (unknown) [facility] (no value) (units unknown) (unknown) Result panel 271 (unknown) (no date) (unknown) [facility] (no value) (units unknown) (unknown) Result panel 272 (unknown) (no date) (unknown) [facility] (no value) (units unknown) (unknown) Result panel 273 (unknown) (no date) (unknown) [facility] (no value) (units unknown) (unknown) Result panel 274 (unknown) (no date) (unknown) [facility] (no value) (units unknown) (unknown) Result panel 275 (unknown) (no date) (unknown) [facility] (no value) (units unknown) (unknown) Result panel 276 (unknown) (no date) (unknown) [facility] (no value) (units unknown) (unknown) Result panel 277 (unknown) (no date) (unknown) [facility] (no value) (units unknown) (unknown) Result panel 278 (unknown) (no date) (unknown) [facility] (no value) (units unknown) (unknown) Result panel 279 (unknown) (no date) (unknown) [facility] (no value) (units unknown) (unknown) Result panel 280 (unknown) (no date) (unknown) [facility] (no value) (units unknown) (unknown) Result panel 281 (unknown) (no date) (unknown) [facility] (no value) (units unknown) (unknown) Result panel 282 (unknown) (no date) (unknown) [facility] (no value) (units unknown) (unknown) Result panel 283 (unknown) (no date) (unknown) [facility] (no value) (units unknown) (unknown) Result panel 284 (unknown) (no date) (unknown) [facility] (no value) (units unknown) (unknown) Result panel 285 (unknown) (no date) (unknown) [facility] (no value) (units unknown) (unknown) Result panel 286 (unknown) (no date) (unknown) [facility] (no value) (units unknown) (unknown) Result panel 287 (unknown) (no date) (unknown) [facility] (no value) (units unknown) (unknown) Result panel 288 (unknown) (no date) (unknown) [facility] (no value) (units unknown) (unknown) Result panel 289 (unknown) (no date) (unknown) [facility] (no value) (units unknown) (unknown) Result panel 290 (unknown) (no date) (unknown) [facility] (no value) (units unknown) (unknown) Result panel 291 (unknown) (no date) (unknown) [facility] (no value) (units unknown) (unknown) Result panel 292 (unknown) (no date) (unknown) [facility] (no value) (units unknown) (unknown) Result panel 293 (unknown) (no date) (unknown) [facility] (no value) (units unknown) (unknown) Result panel 294 (unknown) (no date) (unknown) [facility] (no value) (units unknown) (unknown) Result panel 295 (unknown) (no date) (unknown) [facility] (no value) (units unknown) (unknown) Result panel 296 (unknown) (no date) (unknown) [facility] (no value) (units unknown) (unknown) Result panel 297 (unknown) (no date) (unknown) [facility] (no value) (units unknown) (unknown) Result panel 298 (unknown) (no date) (unknown) [facility] (no value) (units unknown) (unknown) Result panel 299 (unknown) (no date) (unknown) [facility] (no value) (units unknown) (unknown) Result panel 300 (unknown) (no date) (unknown) [facility] (no value) (units unknown) (unknown) Result panel 301 (unknown) (no date) (unknown) [facility] (no value) (units unknown) (unknown) Result panel 302 (unknown) (no date) (unknown) [facility] (no value) (units unknown) (unknown) Result panel 303 (unknown) (no date) (unknown) [facility] (no value) (units unknown) (unknown) Result panel 304 (unknown) (no date) (unknown) [facility] (no value) (units unknown) (unknown) Result panel 305 (unknown) (no date) (unknown) [facility] (no value) (units unknown) (unknown) Result panel 306 (unknown) (no date) (unknown) [facility] (no value) (units unknown) (unknown) Result panel 307 (unknown) (no date) (unknown) [facility] (no value) (units unknown) (unknown) Result panel 308 (unknown) (no date) (unknown) [facility] (no value) (units unknown) (unknown) Result panel 309 (unknown) (no date) (unknown) [facility] (no value) (units unknown) (unknown) Result panel 310 (unknown) (no date) (unknown) [facility] (no value) (units unknown) (unknown) Result panel 311 (unknown) (no date) (unknown) [facility] (no value) (units unknown) (unknown) Result panel 312 (unknown) (no date) (unknown) [facility] (no value) (units unknown) (unknown) Result panel 313 (unknown) (no date) (unknown) [facility] (no value) (units unknown) (unknown) Result panel 314 (unknown) (no date) (unknown) [facility] (no value) (units unknown) (unknown) Result panel 315 (unknown) (no date) (unknown) [facility] (no value) (units unknown) (unknown) Result panel 316 (unknown) (no date) (unknown) [facility] (no value) (units unknown) (unknown) Result panel 317 (unknown) (no date) (unknown) [facility] (no value) (units unknown) (unknown) Result panel 318 (unknown) (no date) (unknown) [facility] (no value) (units unknown) (unknown) Result panel 319 (unknown) (no date) (unknown) [facility] (no value) (units unknown) (unknown) Result panel 320 (unknown) (no date) (unknown) [facility] (no value) (units unknown) (unknown) Result panel 321 (unknown) (no date) (unknown) [facility] (no value) (units unknown) (unknown) Result panel 322 (unknown) (no date) (unknown) [facility] (no value) (units unknown) (unknown) Result panel 323 (unknown) (no date) (unknown) [facility] (no value) (units unknown) (unknown) Result panel 324 (unknown) (no date) (unknown) [facility] (no value) (units unknown) (unknown) Result panel 325 (unknown) (no date) (unknown) [facility] (no value) (units unknown) (unknown) Result panel 326 (unknown) (no date) (unknown) [facility] (no value) (units unknown) (unknown) Result panel 327 (unknown) (no date) (unknown) [facility] (no value) (units unknown) (unknown) Result panel 328 (unknown) (no date) (unknown) [facility] (no value) (units unknown) (unknown) Result panel 329 (unknown) (no date) (unknown) [facility] (no value) (units unknown) (unknown) Result panel 330 (unknown) (no date) (unknown) [facility] (no value) (units unknown) (unknown) Result panel 331 (unknown) (no date) (unknown) [facility] (no value) (units unknown) (unknown) Result panel 332 (unknown) (no date) (unknown) [facility] (no value) (units unknown) (unknown) Result panel 333 (unknown) (no date) (unknown) [facility] (no value) (units unknown) (unknown) Result panel 334 (unknown) (no date) (unknown) [facility] (no value) (units unknown) (unknown) Result panel 335 (unknown) (no date) (unknown) [facility] (no value) (units unknown) (unknown) Result panel 336 (unknown) (no date) (unknown) [facility] (no value) (units unknown) (unknown) Result panel 337 (unknown) (no date) (unknown) [facility] (no value) (units unknown) (unknown) Result panel 338 (unknown) (no date) (unknown) [facility] (no value) (units unknown) (unknown) Result panel 339 (unknown) (no date) (unknown) [facility] (no value) (units unknown) (unknown) Result panel 340 (unknown) (no date) (unknown) [facility] (no value) (units unknown) (unknown) Result panel 341 (unknown) (no date) (unknown) [facility] (no value) (units unknown) (unknown) Result panel 342 (unknown) (no date) (unknown) [facility] (no value) (units unknown) (unknown) Result panel 343 (unknown) (no date) (unknown) [facility] (no value) (units unknown) (unknown) Result panel 344 (unknown) (no date) (unknown) [facility] (no value) (units unknown) (unknown) Result panel 345 (unknown) (no date) (unknown) [facility] (no value) (units unknown) (unknown) Result panel 346 (unknown) (no date) (unknown) [facility] (no value) (units unknown) (unknown) Result panel 347 (unknown) (no date) (unknown) [facility] (no value) (units unknown) (unknown) Result panel 348 (unknown) (no date) (unknown) [facility] (no value) (units unknown) (unknown) Result panel 349 (unknown) (no date) (unknown) [facility] (no value) (units unknown) (unknown) Result panel 350 (unknown) (no date) (unknown) [facility] (no value) (units unknown) (unknown) Result panel 351 (unknown) (no date) (unknown) [facility] (no value) (units unknown) (unknown) Result panel 352 (unknown) (no date) (unknown) [facility] (no value) (units unknown) (unknown) Result panel 353 (unknown) (no date) (unknown) [facility] (no value) (units unknown) (unknown) Result panel 354 (unknown) (no date) (unknown) [facility] (no value) (units unknown) (unknown) Result panel 355 (unknown) (no date) (unknown) [facility] (no value) (units unknown) (unknown) Result panel 356 (unknown) (no date) (unknown) [facility] (no value) (units unknown) (unknown) Result panel 357 (unknown) (no date) (unknown) [facility] (no value) (units unknown) (unknown) Result panel 358 (unknown) (no date) (unknown) [facility] (no value) (units unknown) (unknown) Result panel 359 (unknown) (no date) (unknown) [facility] (no value) (units unknown) (unknown) Result panel 360 (unknown) (no date) (unknown) [facility] (no value) (units unknown) (unknown) Result panel 361 (unknown) (no date) (unknown) [facility] (no value) (units unknown) (unknown) Result panel 362 (unknown) (no date) (unknown) [facility] (no value) (units unknown) (unknown) Result panel 363 (unknown) (no date) (unknown) [facility] (no value) (units unknown) (unknown) Result panel 364 (unknown) (no date) (unknown) [facility] (no value) (units unknown) (unknown) Result panel 365 (unknown) (no date) (unknown) [facility] (no value) (units unknown) (unknown) Result panel 366 (unknown) (no date) (unknown) [facility] (no value) (units unknown) (unknown) Result panel 367 (unknown) (no date) (unknown) [facility] (no value) (units unknown) (unknown) Result panel 368 (unknown) (no date) (unknown) [facility] (no value) (units unknown) (unknown) Result panel 369 (unknown) (no date) (unknown) [facility] (no value) (units unknown) (unknown) Result panel 370 (unknown) (no date) (unknown) [facility] (no value) (units unknown) (unknown) Result panel 371 (unknown) (no date) (unknown) [facility] (no value) (units unknown) (unknown) Result panel 372 (unknown) (no date) (unknown) [facility] (no value) (units unknown) (unknown) Result panel 373 (unknown) (no date) (unknown) [facility] (no value) (units unknown) (unknown) Result panel 374 (unknown) (no date) (unknown) [facility] (no value) (units unknown) (unknown) Result panel 375 (unknown) (no date) (unknown) [facility] (no value) (units unknown) (unknown) Result panel 376 (unknown) (no date) (unknown) [facility] (no value) (units unknown) (unknown) Result panel 377 (unknown) (no date) (unknown) [facility] (no value) (units unknown) (unknown) Result panel 378 (unknown) (no date) (unknown) [facility] (no value) (units unknown) (unknown) Result panel 379 (unknown) (no date) (unknown) [facility] (no value) (units unknown) (unknown) Result panel 380 (unknown) (no date) (unknown) [facility] (no value) (units unknown) (unknown) Result panel 381 (unknown) (no date) (unknown) [facility] (no value) (units unknown) (unknown) Result panel 382 (unknown) (no date) (unknown) [facility] (no value) (units unknown) (unknown) Result panel 383 (unknown) (no date) (unknown) [facility] (no value) (units unknown) (unknown) Result panel 384 (unknown) (no date) (unknown) [facility] (no value) (units unknown) (unknown) Result panel 385 (unknown) (no date) (unknown) [facility] (no value) (units unknown) (unknown) Result panel 386 (unknown) (no date) (unknown) [facility] (no value) (units unknown) (unknown) Result panel 387 (unknown) (no date) (unknown) [facility] (no value) (units unknown) (unknown) Result panel 388 (unknown) (no date) (unknown) [facility] (no value) (units unknown) (unknown) Result panel 389 (unknown) (no date) (unknown) [facility] (no value) (units unknown) (unknown) Result panel 390 (unknown) (no date) (unknown) [facility] (no value) (units unknown) (unknown) Result panel 391 (unknown) (no date) (unknown) [facility] (no value) (units unknown) (unknown) Result panel 392 (unknown) (no date) (unknown) [facility] (no value) (units unknown) (unknown) Result panel 393 (unknown) (no date) (unknown) [facility] (no value) (units unknown) (unknown) Result panel 394 (unknown) (no date) (unknown) [facility] (no value) (units unknown) (unknown) Result panel 395 (unknown) (no date) (unknown) [facility] (no value) (units unknown) (unknown) Result panel 396 (unknown) (no date) (unknown) [facility] (no value) (units unknown) (unknown) Result panel 397 (unknown) (no date) (unknown) [facility] (no value) (units unknown) (unknown) Result panel 398 (unknown) (no date) (unknown) [facility] (no value) (units unknown) (unknown) Result panel 399 (unknown) (no date) (unknown) [facility] (no value) (units unknown) (unknown) Result panel 400 (unknown) (no date) (unknown) [facility] (no value) (units unknown) (unknown) Result panel 401 (unknown) (no date) (unknown) [facility] (no value) (units unknown) (unknown) Result panel 402 (unknown) (no date) (unknown) [facility] (no value) (units unknown) (unknown) Result panel 403 (unknown) (no date) (unknown) [facility] (no value) (units unknown) (unknown) Result panel 404 (unknown) (no date) (unknown) [facility] (no value) (units unknown) (unknown) Result panel 405 (unknown) (no date) (unknown) [facility] (no value) (units unknown) (unknown) Result panel 406 (unknown) (no date) (unknown) [facility] (no value) (units unknown) (unknown) Result panel 407 (unknown) (no date) (unknown) [facility] (no value) (units unknown) (unknown) Result panel 408 (unknown) (no date) (unknown) [facility] (no value) (units unknown) (unknown) Result panel 409 (unknown) (no date) (unknown) [facility] (no value) (units unknown) (unknown) Result panel 410 (unknown) (no date) (unknown) [facility] (no value) (units unknown) (unknown) Result panel 411 (unknown) (no date) (unknown) [facility] (no value) (units unknown) (unknown) Result panel 412 (unknown) (no date) (unknown) [facility] (no value) (units unknown) (unknown) Result panel 413 (unknown) (no date) (unknown) [facility] (no value) (units unknown) (unknown) Result panel 414 (unknown) (no date) (unknown) [facility] (no value) (units unknown) (unknown) Result panel 415 (unknown) (no date) (unknown) [facility] (no value) (units unknown) (unknown) Result panel 416 (unknown) (no date) (unknown) [facility] (no value) (units unknown) (unknown) Result panel 417 (unknown) (no date) (unknown) [facility] (no value) (units unknown) (unknown) Result panel 418 (unknown) (no date) (unknown) [facility] (no value) (units unknown) (unknown) Result panel 419 (unknown) (no date) (unknown) [facility] (no value) (units unknown) (unknown) Result panel 420 (unknown) (no date) (unknown) [facility] (no value) (units unknown) (unknown) Result panel 421 (unknown) (no date) (unknown) [facility] (no value) (units unknown) (unknown) Result panel 422 (unknown) (no date) (unknown) [facility] (no value) (units unknown) (unknown) Result panel 423 (unknown) (no date) (unknown) [facility] (no value) (units unknown) (unknown) Result panel 424 (unknown) (no date) (unknown) [facility] (no value) (units unknown) (unknown) Result panel 425 (unknown) (no date) (unknown) [facility] (no value) (units unknown) (unknown) Result panel 426 (unknown) (no date) (unknown) [facility] (no value) (units unknown) (unknown) Result panel 427 (unknown) (no date) (unknown) [facility] (no value) (units unknown) (unknown) Result panel 428 (unknown) (no date) (unknown) [facility] (no value) (units unknown) (unknown) Result panel 429 (unknown) (no date) (unknown) [facility] (no value) (units unknown) (unknown) Result panel 430 (unknown) (no date) (unknown) [facility] (no value) (units unknown) (unknown) Result panel 431 (unknown) (no date) (unknown) [facility] (no value) (units unknown) (unknown) Result panel 432 (unknown) (no date) (unknown) [facility] (no value) (units unknown) (unknown) Result panel 433 (unknown) (no date) (unknown) [facility] (no value) (units unknown) (unknown) Result panel 434 (unknown) (no date) (unknown) [facility] (no value) (units unknown) (unknown) Result panel 435 (unknown) (no date) (unknown) [facility] (no value) (units unknown) (unknown) Result panel 436 (unknown) (no date) (unknown) [facility] (no value) (units unknown) (unknown) Result panel 437 (unknown) (no date) (unknown) [facility] (no value) (units unknown) (unknown) Result panel 438 (unknown) (no date) (unknown) [facility] (no value) (units unknown) (unknown) Result panel 439 (unknown) (no date) (unknown) [facility] (no value) (units unknown) (unknown) Result panel 440 (unknown) (no date) (unknown) [facility] (no value) (units unknown) (unknown) Result panel 441 (unknown) (no date) (unknown) [facility] (no value) (units unknown) (unknown) Result panel 442 (unknown) (no date) (unknown) [facility] (no value) (units unknown) (unknown) Result panel 443 (unknown) (no date) (unknown) [facility] (no value) (units unknown) (unknown) Result panel 444 (unknown) (no date) (unknown) [facility] (no value) (units unknown) (unknown) Result panel 445 (unknown) (no date) (unknown) [facility] (no value) (units unknown) (unknown) Result panel 446 (unknown) (no date) (unknown) [facility] (no value) (units unknown) (unknown) Result panel 447 (unknown) (no date) (unknown) [facility] (no value) (units unknown) (unknown) Result panel 448 (unknown) (no date) (unknown) [facility] (no value) (units unknown) (unknown) Result panel 449 (unknown) (no date) (unknown) [facility] (no value) (units unknown) (unknown) Result panel 450 (unknown) (no date) (unknown) [facility] (no value) (units unknown) (unknown) Result panel 451 (unknown) (no date) (unknown) [facility] (no value) (units unknown) (unknown) Result panel 452 (unknown) (no date) (unknown) [facility] (no value) (units unknown) (unknown) Result panel 453 (unknown) (no date) (unknown) [facility] (no value) (units unknown) (unknown) Result panel 454 (unknown) (no date) (unknown) [facility] (no value) (units unknown) (unknown) Result panel 455 (unknown) (no date) (unknown) [facility] (no value) (units unknown) (unknown) Result panel 456 (unknown) (no date) (unknown) [facility] (no value) (units unknown) (unknown) Result panel 457 (unknown) (no date) (unknown) [facility] (no value) (units unknown) (unknown) Result panel 458 (unknown) (no date) (unknown) [facility] (no value) (units unknown) (unknown) Result panel 459 (unknown) (no date) (unknown) [facility] (no value) (units unknown) (unknown) Result panel 460 (unknown) (no date) (unknown) [facility] (no value) (units unknown) (unknown) Result panel 461 (unknown) (no date) (unknown) [facility] (no value) (units unknown) (unknown) Result panel 462 (unknown) (no date) (unknown) [facility] (no value) (units unknown) (unknown) Result panel 463 (unknown) (no date) (unknown) [facility] (no value) (units unknown) (unknown) Result panel 464 (unknown) (no date) (unknown) [facility] (no value) (units unknown) (unknown) Result panel 465 (unknown) (no date) (unknown) [facility] (no value) (units unknown) (unknown) Result panel 466 (unknown) (no date) (unknown) [facility] (no value) (units unknown) (unknown) Result panel 467 (unknown) (no date) (unknown) [facility] (no value) (units unknown) (unknown) Result panel 468 (unknown) (no date) (unknown) [facility] (no value) (units unknown) (unknown) Result panel 469 (unknown) (no date) (unknown) [facility] (no value) (units unknown) (unknown) Result panel 470 (unknown) (no date) (unknown) [facility] (no value) (units unknown) (unknown) Result panel 471 (unknown) (no date) (unknown) [facility] (no value) (units unknown) (unknown) Result panel 472 (unknown) (no date) (unknown) [facility] (no value) (units unknown) (unknown) Result panel 473 (unknown) (no date) (unknown) [facility] (no value) (units unknown) (unknown) Result panel 474 (unknown) (no date) (unknown) [facility] (no value) (units unknown) (unknown) Result panel 475 (unknown) (no date) (unknown) [facility] (no value) (units unknown) (unknown) Result panel 476 (unknown) (no date) (unknown) [facility] (no value) (units unknown) (unknown) Result panel 477 (unknown) (no date) (unknown) [facility] (no value) (units unknown) (unknown) Result panel 478 (unknown) (no date) (unknown) [facility] (no value) (units unknown) (unknown) Result panel 479 (unknown) (no date) (unknown) [facility] (no value) (units unknown) (unknown) Result panel 480 (unknown) (no date) (unknown) [facility] (no value) (units unknown) (unknown) Result panel 481 (unknown) (no date) (unknown) [facility] (no value) (units unknown) (unknown) Result panel 482 (unknown) (no date) (unknown) [facility] (no value) (units unknown) (unknown) Result panel 483 (unknown) (no date) (unknown) [facility] (no value) (units unknown) (unknown) Result panel 484 (unknown) (no date) (unknown) [facility] (no value) (units unknown) (unknown) Result panel 485 (unknown) (no date) (unknown) [facility] (no value) (units unknown) (unknown) Result panel 486 (unknown) (no date) (unknown) [facility] (no value) (units unknown) (unknown) Result panel 487 (unknown) (no date) (unknown) [facility] (no value) (units unknown) (unknown) Result panel 488 (unknown) (no date) (unknown) [facility] (no value) (units unknown) (unknown) Result panel 489 (unknown) (no date) (unknown) [facility] (no value) (units unknown) (unknown) Result panel 490 (unknown) (no date) (unknown) [facility] (no value) (units unknown) (unknown) Result panel 491 (unknown) (no date) (unknown) [facility] (no value) (units unknown) (unknown) Result panel 492 (unknown) (no date) (unknown) [facility] (no value) (units unknown) (unknown) Result panel 493 (unknown) (no date) (unknown) [facility] (no value) (units unknown) (unknown) Result panel 494 (unknown) (no date) (unknown) [facility] (no value) (units unknown) (unknown) Result panel 495 (unknown) (no date) (unknown) [facility] (no value) (units unknown) (unknown) Result panel 496 (unknown) (no date) (unknown) [facility] (no value) (units unknown) (unknown) Result panel 497 (unknown) (no date) (unknown) [facility] (no value) (units unknown) (unknown) Result panel 498 (unknown) (no date) (unknown) [facility] (no value) (units unknown) (unknown) Result panel 499 (unknown) (no date) (unknown) [facility] (no value) (units unknown) (unknown) Result panel 500 (unknown) (no date) (unknown) [facility] (no value) (units unknown) (unknown) Result panel 501 (unknown) (no date) (unknown) [facility] (no value) (units unknown) (unknown) Result panel 502 (unknown) (no date) (unknown) [facility] (no value) (units unknown) (unknown) Result panel 503 (unknown) (no date) (unknown) [facility] (no value) (units unknown) (unknown) Result panel 504 (unknown) (no date) (unknown) [facility] (no value) (units unknown) (unknown) Result panel 505 (unknown) (no date) (unknown) [facility] (no value) (units unknown) (unknown) Result panel 506 (unknown) (no date) (unknown) [facility] (no value) (units unknown) (unknown) Result panel 507 (unknown) (no date) (unknown) [facility] (no value) (units unknown) (unknown) Result panel 508 (unknown) (no date) (unknown) [facility] (no value) (units unknown) (unknown) Result panel 509 (unknown) (no date) (unknown) [facility] (no value) (units unknown) (unknown) Result panel 510 (unknown) (no date) (unknown) [facility] (no value) (units unknown) (unknown) Result panel 511 (unknown) (no date) (unknown) [facility] (no value) (units unknown) (unknown) Result panel 512 (unknown) (no date) (unknown) [facility] (no value) (units unknown) (unknown) Result panel 513 (unknown) (no date) (unknown) [facility] (no value) (units unknown) (unknown) Result panel 514 (unknown) (no date) (unknown) [facility] (no value) (units unknown) (unknown) Result panel 515 (unknown) (no date) (unknown) [facility] (no value) (units unknown) (unknown) Result panel 516 (unknown) (no date) (unknown) [facility] (no value) (units unknown) (unknown) Result panel 517 (unknown) (no date) (unknown) [facility] (no value) (units unknown) (unknown) Result panel 518 (unknown) (no date) (unknown) [facility] (no value) (units unknown) (unknown) Result panel 519 (unknown) (no date) (unknown) [facility] (no value) (units unknown) (unknown) Result panel 520 (unknown) (no date) (unknown) [facility] (no value) (units unknown) (unknown) Result panel 521 (unknown) (no date) (unknown) [facility] (no value) (units unknown) (unknown) Result panel 522 (unknown) (no date) (unknown) [facility] (no value) (units unknown) (unknown) Result panel 523 (unknown) (no date) (unknown) [facility] (no value) (units unknown) (unknown) Result panel 524 (unknown) (no date) (unknown) [facility] (no value) (units unknown) (unknown) Result panel 525 (unknown) (no date) (unknown) [facility] (no value) (units unknown) (unknown) Result panel 526 (unknown) (no date) (unknown) [facility] (no value) (units unknown) (unknown) Result panel 527 (unknown) (no date) (unknown) [facility] (no value) (units unknown) (unknown) Result panel 528 (unknown) (no date) (unknown) [facility] (no value) (units unknown) (unknown) Result panel 529 (unknown) (no date) (unknown) [facility] (no value) (units unknown) (unknown) Result panel 530 (unknown) (no date) (unknown) [facility] (no value) (units unknown) (unknown) Result panel 531 (unknown) (no date) (unknown) [facility] (no value) (units unknown) (unknown) Result panel 532 (unknown) (no date) (unknown) [facility] (no value) (units unknown) (unknown) Result panel 533 (unknown) (no date) (unknown) [facility] (no value) (units unknown) (unknown) Result panel 534 (unknown) (no date) (unknown) [facility] (no value) (units unknown) (unknown) Result panel 535 (unknown) (no date) (unknown) [facility] (no value) (units unknown) (unknown) Result panel 536 (unknown) (no date) (unknown) [facility] (no value) (units unknown) (unknown) Result panel 537 (unknown) (no date) (unknown) [facility] (no value) (units unknown) (unknown) Result panel 538 (unknown) (no date) (unknown) [facility] (no value) (units unknown) (unknown) Result panel 539 (unknown) (no date) (unknown) [facility] (no value) (units unknown) (unknown) Result panel 540 (unknown) (no date) (unknown) [facility] (no value) (units unknown) (unknown) Result panel 541 (unknown) (no date) (unknown) [facility] (no value) (units unknown) (unknown) Result panel 542 (unknown) (no date) (unknown) [facility] (no value) (units unknown) (unknown) Result panel 543 (unknown) (no date) (unknown) [facility] (no value) (units unknown) (unknown) Result panel 544 (unknown) (no date) (unknown) [facility] (no value) (units unknown) (unknown) Result panel 545 (unknown) (no date) (unknown) [facility] (no value) (units unknown) (unknown) Result panel 546 (unknown) (no date) (unknown) [facility] (no value) (units unknown) (unknown) Result panel 547 (unknown) (no date) (unknown) [facility] (no value) (units unknown) (unknown) Result panel 548 (unknown) (no date) (unknown) [facility] (no value) (units unknown) (unknown) Result panel 549 (unknown) (no date) (unknown) [facility] (no value) (units unknown) (unknown) Result panel 550 (unknown) (no date) (unknown) [facility] (no value) (units unknown) (unknown) Result panel 551 (unknown) (no date) (unknown) [facility] (no value) (units unknown) (unknown) Result panel 552 (unknown) (no date) (unknown) [facility] (no value) (units unknown) (unknown) Result panel 553 (unknown) (no date) (unknown) [facility] (no value) (units unknown) (unknown) Result panel 554 (unknown) (no date) (unknown) [facility] (no value) (units unknown) (unknown) Result panel 555 (unknown) (no date) (unknown) [facility] (no value) (units unknown) (unknown) Result panel 556 (unknown) (no date) (unknown) [facility] (no value) (units unknown) (unknown) Result panel 557 (unknown) (no date) (unknown) [facility] (no value) (units unknown) (unknown) Result panel 558 (unknown) (no date) (unknown) [facility] (no value) (units unknown) (unknown) Result panel 559 (unknown) (no date) (unknown) [facility] (no value) (units unknown) (unknown) Result panel 560 (unknown) (no date) (unknown) [facility] (no value) (units unknown) (unknown) Result panel 561 (unknown) (no date) (unknown) [facility] (no value) (units unknown) (unknown) Result panel 562 (unknown) (no date) (unknown) [facility] (no value) (units unknown) (unknown) Result panel 563 (unknown) (no date) (unknown) [facility] (no value) (units unknown) (unknown) Result panel 564 (unknown) (no date) (unknown) [facility] (no value) (units unknown) (unknown) Result panel 565 (unknown) (no date) (unknown) [facility] (no value) (units unknown) (unknown) Result panel 566 (unknown) (no date) (unknown) [facility] (no value) (units unknown) (unknown) Result panel 567 (unknown) (no date) (unknown) [facility] (no value) (units unknown) (unknown) Result panel 568 (unknown) (no date) (unknown) [facility] (no value) (units unknown) (unknown) Result panel 569 (unknown) (no date) (unknown) [facility] (no value) (units unknown) (unknown) Result panel 570 (unknown) (no date) (unknown) [facility] (no value) (units unknown) (unknown) Result panel 571 (unknown) (no date) (unknown) [facility] (no value) (units unknown) (unknown) Result panel 572 (unknown) (no date) (unknown) [facility] (no value) (units unknown) (unknown) Result panel 573 (unknown) (no date) (unknown) [facility] (no value) (units unknown) (unknown) Result panel 574 (unknown) (no date) (unknown) [facility] (no value) (units unknown) (unknown) Result panel 575 (unknown) (no date) (unknown) [facility] (no value) (units unknown) (unknown) Result panel 576 (unknown) (no date) (unknown) [facility] (no value) (units unknown) (unknown) Result panel 577 (unknown) (no date) (unknown) [facility] (no value) (units unknown) (unknown) Result panel 578 (unknown) (no date) (unknown) [facility] (no value) (units unknown) (unknown) Result panel 579 (unknown) (no date) (unknown) [facility] (no value) (units unknown) (unknown) Result panel 580 (unknown) (no date) (unknown) [facility] (no value) (units unknown) (unknown) Result panel 581 (unknown) (no date) (unknown) [facility] (no value) (units unknown) (unknown) Result panel 582 (unknown) (no date) (unknown) [facility] (no value) (units unknown) (unknown) Result panel 583 (unknown) (no date) (unknown) [facility] (no value) (units unknown) (unknown) Result panel 584 (unknown) (no date) (unknown) [facility] (no value) (units unknown) (unknown) Result panel 585 (unknown) (no date) (unknown) [facility] (no value) (units unknown) (unknown) Result panel 586 (unknown) (no date) (unknown) [facility] (no value) (units unknown) (unknown) Result panel 587 (unknown) (no date) (unknown) [facility] (no value) (units unknown) (unknown) Result panel 588 (unknown) (no date) (unknown) [facility] (no value) (units unknown) (unknown) Result panel 589 (unknown) (no date) (unknown) [facility] (no value) (units unknown) (unknown) Result panel 590 (unknown) (no date) (unknown) [facility] (no value) (units unknown) (unknown) Result panel 591 (unknown) (no date) (unknown) [facility] (no value) (units unknown) (unknown) Result panel 592 (unknown) (no date) (unknown) [facility] (no value) (units unknown) (unknown) Result panel 593 (unknown) (no date) (unknown) [facility] (no value) (units unknown) (unknown) Result panel 594 (unknown) (no date) (unknown) [facility] (no value) (units unknown) (unknown) Result panel 595 (unknown) (no date) (unknown) [facility] (no value) (units unknown) (unknown) Result panel 596 (unknown) (no date) (unknown) [facility] (no value) (units unknown) (unknown) Result panel 597 (unknown) (no date) (unknown) [facility] (no value) (units unknown) (unknown) Result panel 598 (unknown) (no date) (unknown) [facility] (no value) (units unknown) (unknown) Result panel 599 (unknown) (no date) (unknown) [facility] (no value) (units unknown) (unknown) Result panel 600 (unknown) (no date) (unknown) [facility] (no value) (units unknown) (unknown) Result panel 601 (unknown) (no date) (unknown) [facility] (no value) (units unknown) (unknown) Result panel 602 (unknown) (no date) (unknown) [facility] (no value) (units unknown) (unknown) Result panel 603 (unknown) (no date) (unknown) [facility] (no value) (units unknown) (unknown) Result panel 604 (unknown) (no date) (unknown) [facility] (no value) (units unknown) (unknown) Result panel 605 (unknown) (no date) (unknown) [facility] (no value) (units unknown) (unknown) Result panel 606 (unknown) (no date) (unknown) [facility] (no value) (units unknown) (unknown) Result panel 607 (unknown) (no date) (unknown) [facility] (no value) (units unknown) (unknown) Result panel 608 (unknown) (no date) (unknown) [facility] (no value) (units unknown) (unknown) Result panel 609 (unknown) (no date) (unknown) [facility] (no value) (units unknown) (unknown) Result panel 610 (unknown) (no date) (unknown) [facility] (no value) (units unknown) (unknown) Result panel 611 (unknown) (no date) (unknown) [facility] (no value) (units unknown) (unknown) Result panel 612 (unknown) (no date) (unknown) [facility] (no value) (units unknown) (unknown) Result panel 613 (unknown) (no date) (unknown) [facility] (no value) (units unknown) (unknown) Result panel 614 (unknown) (no date) (unknown) [facility] (no value) (units unknown) (unknown) Result panel 615 (unknown) (no date) (unknown) [facility] (no value) (units unknown) (unknown) Result panel 616 (unknown) (no date) (unknown) [facility] (no value) (units unknown) (unknown) Result panel 617 (unknown) (no date) (unknown) [facility] (no value) (units unknown) (unknown) Result panel 618 (unknown) (no date) (unknown) [facility] (no value) (units unknown) (unknown) Result panel 619 (unknown) (no date) (unknown) [facility] (no value) (units unknown) (unknown) Result panel 620 (unknown) (no date) (unknown) [facility] (no value) (units unknown) (unknown) Result panel 621 (unknown) (no date) (unknown) [facility] (no value) (units unknown) (unknown) Result panel 622 (unknown) (no date) (unknown) [facility] (no value) (units unknown) (unknown) Result panel 623 (unknown) (no date) (unknown) [facility] (no value) (units unknown) (unknown) Result panel 624 (unknown) (no date) (unknown) [facility] (no value) (units unknown) (unknown) Result panel 625 (unknown) (no date) (unknown) [facility] (no value) (units unknown) (unknown) Result panel 626 (unknown) (no date) (unknown) [facility] (no value) (units unknown) (unknown) Result panel 627 (unknown) (no date) (unknown) [facility] (no value) (units unknown) (unknown) Result panel 628 (unknown) (no date) (unknown) [facility] (no value) (units unknown) (unknown) Result panel 629 (unknown) (no date) (unknown) [facility] (no value) (units unknown) (unknown) Result panel 630 (unknown) (no date) (unknown) [facility] (no value) (units unknown) (unknown) Result panel 631 (unknown) (no date) (unknown) [facility] (no value) (units unknown) (unknown) Result panel 632 (unknown) (no date) (unknown) [facility] (no value) (units unknown) (unknown) Result panel 633 (unknown) (no date) (unknown) [facility] (no value) (units unknown) (unknown) Result panel 634 (unknown) (no date) (unknown) [facility] (no value) (units unknown) (unknown) Result panel 635 (unknown) (no date) (unknown) [facility] (no value) (units unknown) (unknown) Result panel 636 (unknown) (no date) (unknown) [facility] (no value) (units unknown) (unknown) Result panel 637 (unknown) (no date) (unknown) [facility] (no value) (units unknown) (unknown) Result panel 638 (unknown) (no date) (unknown) [facility] (no value) (units unknown) (unknown) Result panel 639 (unknown) (no date) (unknown) [facility] (no value) (units unknown) (unknown) Result panel 640 (unknown) (no date) (unknown) [facility] (no value) (units unknown) (unknown) Result panel 641 (unknown) (no date) (unknown) [facility] (no value) (units unknown) (unknown) Result panel 642 (unknown) (no date) (unknown) [facility] (no value) (units unknown) (unknown) Result panel 643 (unknown) (no date) (unknown) [facility] (no value) (units unknown) (unknown) Result panel 644 (unknown) (no date) (unknown) [facility] (no value) (units unknown) (unknown) Result panel 645 (unknown) (no date) (unknown) [facility] (no value) (units unknown) (unknown) Result panel 646 (unknown) (no date) (unknown) [facility] (no value) (units unknown) (unknown) Result panel 647 (unknown) (no date) (unknown) [facility] (no value) (units unknown) (unknown) Result panel 648 (unknown) (no date) (unknown) [facility] (no value) (units unknown) (unknown) Result panel 649 (unknown) (no date) (unknown) [facility] (no value) (units unknown) (unknown) Result panel 650 (unknown) (no date) (unknown) [facility] (no value) (units unknown) (unknown) Result panel 651 (unknown) (no date) (unknown) [facility] (no value) (units unknown) (unknown) Result panel 652 (unknown) (no date) (unknown) [facility] (no value) (units unknown) (unknown) Result panel 653 (unknown) (no date) (unknown) [facility] (no value) (units unknown) (unknown) Result panel 654 (unknown) (no date) (unknown) [facility] (no value) (units unknown) (unknown) Result panel 655 (unknown) (no date) (unknown) [facility] (no value) (units unknown) (unknown) Result panel 656 (unknown) (no date) (unknown) [facility] (no value) (units unknown) (unknown) Result panel 657 (unknown) (no date) (unknown) [facility] (no value) (units unknown) (unknown) Result panel 658 (unknown) (no date) (unknown) [facility] (no value) (units unknown) (unknown) Result panel 659 (unknown) (no date) (unknown) [facility] (no value) (units unknown) (unknown) Result panel 660 (unknown) (no date) (unknown) [facility] (no value) (units unknown) (unknown) Result panel 661 (unknown) (no date) (unknown) [facility] (no value) (units unknown) (unknown) Result panel 662 (unknown) (no date) (unknown) [facility] (no value) (units unknown) (unknown) Result panel 663 (unknown) (no date) (unknown) [facility] (no value) (units unknown) (unknown) Result panel 664 (unknown) (no date) (unknown) [facility] (no value) (units unknown) (unknown) Result panel 665 (unknown) (no date) (unknown) [facility] (no value) (units unknown) (unknown) Result panel 666 (unknown) (no date) (unknown) [facility] (no value) (units unknown) (unknown) Result panel 667 (unknown) (no date) (unknown) [facility] (no value) (units unknown) (unknown) Result panel 668 (unknown) (no date) (unknown) [facility] (no value) (units unknown) (unknown) Result panel 669 (unknown) (no date) (unknown) [facility] (no value) (units unknown) (unknown) Result panel 670 (unknown) (no date) (unknown) [facility] (no value) (units unknown) (unknown) Result panel 671 (unknown) (no date) (unknown) [facility] (no value) (units unknown) (unknown) Result panel 672 (unknown) (no date) (unknown) [facility] (no value) (units unknown) (unknown) Result panel 673 (unknown) (no date) (unknown) [facility] (no value) (units unknown) (unknown) Result panel 674 (unknown) (no date) (unknown) [facility] (no value) (units unknown) (unknown) Result panel 675 (unknown) (no date) (unknown) [facility] (no value) (units unknown) (unknown) Result panel 676 (unknown) (no date) (unknown) [facility] (no value) (units unknown) (unknown) Result panel 677 (unknown) (no date) (unknown) [facility] (no value) (units unknown) (unknown) Result panel 678 (unknown) (no date) (unknown) [facility] (no value) (units unknown) (unknown) Result panel 679 (unknown) (no date) (unknown) [facility] (no value) (units unknown) (unknown) Result panel 680 (unknown) (no date) (unknown) [facility] (no value) (units unknown) (unknown) Result panel 681 (unknown) (no date) (unknown) [facility] (no value) (units unknown) (unknown) Result panel 682 (unknown) (no date) (unknown) [facility] (no value) (units unknown) (unknown) Result panel 683 (unknown) (no date) (unknown) [facility] (no value) (units unknown) (unknown) Result panel 684 (unknown) (no date) (unknown) [facility] (no value) (units unknown) (unknown) Result panel 685 (unknown) (no date) (unknown) [facility] (no value) (units unknown) (unknown) Result panel 686 (unknown) (no date) (unknown) [facility] (no value) (units unknown) (unknown) Result panel 687 (unknown) (no date) (unknown) [facility] (no value) (units unknown) (unknown) Result panel 688 (unknown) (no date) (unknown) [facility] (no value) (units unknown) (unknown) Result panel 689 (unknown) (no date) (unknown) [facility] (no value) (units unknown) (unknown) Result panel 690 (unknown) (no date) (unknown) [facility] (no value) (units unknown) (unknown) Result panel 691 (unknown) (no date) (unknown) [facility] (no value) (units unknown) (unknown) Result panel 692 (unknown) (no date) (unknown) [facility] (no value) (units unknown) (unknown) Result panel 693 (unknown) (no date) (unknown) [facility] (no value) (units unknown) (unknown) Result panel 694 (unknown) (no date) (unknown) [facility] (no value) (units unknown) (unknown) Result panel 695 (unknown) (no date) (unknown) [facility] (no value) (units unknown) (unknown) Result panel 696 (unknown) (no date) (unknown) [facility] (no value) (units unknown) (unknown) Result panel 697 (unknown) (no date) (unknown) [facility] (no value) (units unknown) (unknown) Result panel 698 (unknown) (no date) (unknown) [facility] (no value) (units unknown) (unknown) Result panel 699 (unknown) (no date) (unknown) [facility] (no value) (units unknown) (unknown) Result panel 700 (unknown) (no date) (unknown) [facility] (no value) (units unknown) (unknown) Result panel 701 (unknown) (no date) (unknown) [facility] (no value) (units unknown) (unknown) Result panel 702 (unknown) (no date) (unknown) [facility] (no value) (units unknown) (unknown) Result panel 703 (unknown) (no date) (unknown) [facility] (no value) (units unknown) (unknown) Result panel 704 (unknown) (no date) (unknown) [facility] (no value) (units unknown) (unknown) Result panel 705 (unknown) (no date) (unknown) [facility] (no value) (units unknown) (unknown) Result panel 706 (unknown) (no date) (unknown) [facility] (no value) (units unknown) (unknown) Result panel 707 (unknown) (no date) (unknown) [facility] (no value) (units unknown) (unknown) Result panel 708 (unknown) (no date) (unknown) [facility] (no value) (units unknown) (unknown) Result panel 709 (unknown) (no date) (unknown) [facility] (no value) (units unknown) (unknown) Result panel 710 (unknown) (no date) (unknown) [facility] (no value) (units unknown) (unknown) Result panel 711 (unknown) (no date) (unknown) [facility] (no value) (units unknown) (unknown) Result panel 712 (unknown) (no date) (unknown) [facility] (no value) (units unknown) (unknown) Result panel 713 (unknown) (no date) (unknown) [facility] (no value) (units unknown) (unknown) Result panel 714 (unknown) (no date) (unknown) [facility] (no value) (units unknown) (unknown) Result panel 715 (unknown) (no date) (unknown) [facility] (no value) (units unknown) (unknown) Result panel 716 (unknown) (no date) (unknown) [facility] (no value) (units unknown) (unknown) Result panel 717 (unknown) (no date) (unknown) [facility] (no value) (units unknown) (unknown) Result panel 718 (unknown) (no date) (unknown) [facility] (no value) (units unknown) (unknown) Result panel 719 (unknown) (no date) (unknown) [facility] (no value) (units unknown) (unknown) Result panel 720 (unknown) (no date) (unknown) [facility] (no value) (units unknown) (unknown) Result panel 721 (unknown) (no date) (unknown) [facility] (no value) (units unknown) (unknown) Result panel 722 (unknown) (no date) (unknown) [facility] (no value) (units unknown) (unknown) Result panel 723 (unknown) (no date) (unknown) [facility] (no value) (units unknown) (unknown) Result panel 724 (unknown) (no date) (unknown) [facility] (no value) (units unknown) (unknown) Result panel 725 (unknown) (no date) (unknown) [facility] (no value) (units unknown) (unknown) Result panel 726 (unknown) (no date) (unknown) [facility] (no value) (units unknown) (unknown) Result panel 727 (unknown) (no date) (unknown) [facility] (no value) (units unknown) (unknown) Result panel 728 (unknown) (no date) (unknown) [facility] (no value) (units unknown) (unknown) Result panel 729 (unknown) (no date) (unknown) [facility] (no value) (units unknown) (unknown) Result panel 730 (unknown) (no date) (unknown) [facility] (no value) (units unknown) (unknown) Result panel 731 (unknown) (no date) (unknown) [facility] (no value) (units unknown) (unknown) Result panel 732 (unknown) (no date) (unknown) [facility] (no value) (units unknown) (unknown) Result panel 733 (unknown) (no date) (unknown) [facility] (no value) (units unknown) (unknown) Result panel 734 (unknown) (no date) (unknown) [facility] (no value) (units unknown) (unknown) Result panel 735 (unknown) (no date) (unknown) [facility] (no value) (units unknown) (unknown) Result panel 736 (unknown) (no date) (unknown) [facility] (no value) (units unknown) (unknown) Result panel 737 (unknown) (no date) (unknown) [facility] (no value) (units unknown) (unknown) Result panel 738 (unknown) (no date) (unknown) [facility] (no value) (units unknown) (unknown) Result panel 739 (unknown) (no date) (unknown) [facility] (no value) (units unknown) (unknown) Result panel 740 (unknown) (no date) (unknown) [facility] (no value) (units unknown) (unknown) Result panel 741 (unknown) (no date) (unknown) [facility] (no value) (units unknown) (unknown) Result panel 742 (unknown) (no date) (unknown) [facility] (no value) (units unknown) (unknown) Result panel 743 (unknown) (no date) (unknown) [facility] (no value) (units unknown) (unknown) Result panel 744 (unknown) (no date) (unknown) [facility] (no value) (units unknown) (unknown) Result panel 745 (unknown) (no date) (unknown) [facility] (no value) (units unknown) (unknown) Result panel 746 (unknown) (no date) (unknown) [facility] (no value) (units unknown) (unknown) Result panel 747 (unknown) (no date) (unknown) [facility] (no value) (units unknown) (unknown) Result panel 748 (unknown) (no date) (unknown) [facility] (no value) (units unknown) (unknown) Result panel 749 (unknown) (no date) (unknown) [facility] (no value) (units unknown) (unknown) Result panel 750 (unknown) (no date) (unknown) [facility] (no value) (units unknown) (unknown) Result panel 751 (unknown) (no date) (unknown) [facility] (no value) (units unknown) (unknown) Result panel 752 (unknown) (no date) (unknown) [facility] (no value) (units unknown) (unknown) Result panel 753 (unknown) (no date) (unknown) [facility] (no value) (units unknown) (unknown) Result panel 754 (unknown) (no date) (unknown) [facility] (no value) (units unknown) (unknown) Result panel 755 (unknown) (no date) (unknown) [facility] (no value) (units unknown) (unknown) Result panel 756 (unknown) (no date) (unknown) [facility] (no value) (units unknown) (unknown) Result panel 757 (unknown) (no date) (unknown) [facility] (no value) (units unknown) (unknown) Result panel 758 (unknown) (no date) (unknown) [facility] (no value) (units unknown) (unknown) Result panel 759 (unknown) (no date) (unknown) [facility] (no value) (units unknown) (unknown) Result panel 760 (unknown) (no date) (unknown) [facility] (no value) (units unknown) (unknown) Result panel 761 (unknown) (no date) (unknown) [facility] (no value) (units unknown) (unknown) Result panel 762 (unknown) (no date) (unknown) [facility] (no value) (units unknown) (unknown) Result panel 763 (unknown) (no date) (unknown) [facility] (no value) (units unknown) (unknown) Result panel 764 (unknown) (no date) (unknown) [facility] (no value) (units unknown) (unknown) Result panel 765 (unknown) (no date) (unknown) [facility] (no value) (units unknown) (unknown) Result panel 766 (unknown) (no date) (unknown) [facility] (no value) (units unknown) (unknown) Result panel 767 (unknown) (no date) (unknown) [facility] (no value) (units unknown) (unknown) Result panel 768 (unknown) (no date) (unknown) [facility] (no value) (units unknown) (unknown) Result panel 769 (unknown) (no date) (unknown) [facility] (no value) (units unknown) (unknown) Result panel 770 (unknown) (no date) (unknown) [facility] (no value) (units unknown) (unknown) Result panel 771 (unknown) (no date) (unknown) [facility] (no value) (units unknown) (unknown) Result panel 772 (unknown) (no date) (unknown) [facility] (no value) (units unknown) (unknown) Result panel 773 (unknown) (no date) (unknown) [facility] (no value) (units unknown) (unknown) Result panel 774 (unknown) (no date) (unknown) [facility] (no value) (units unknown) (unknown) Result panel 775 (unknown) (no date) (unknown) [facility] (no value) (units unknown) (unknown) Result panel 776 (unknown) (no date) (unknown) [facility] (no value) (units unknown) (unknown) Result panel 777 (unknown) (no date) (unknown) [facility] (no value) (units unknown) (unknown) Result panel 778 (unknown) (no date) (unknown) [facility] (no value) (units unknown) (unknown) Result panel 779 (unknown) (no date) (unknown) [facility] (no value) (units unknown) (unknown) Result panel 780 (unknown) (no date) (unknown) [facility] (no value) (units unknown) (unknown) Result panel 781 (unknown) (no date) (unknown) [facility] (no value) (units unknown) (unknown) Result panel 782 (unknown) (no date) (unknown) [facility] (no value) (units unknown) (unknown) Result panel 783 (unknown) (no date) (unknown) [facility] (no value) (units unknown) (unknown) Result panel 784 (unknown) (no date) (unknown) [facility] (no value) (units unknown) (unknown) Result panel 785 (unknown) (no date) (unknown) [facility] (no value) (units unknown) (unknown) Result panel 786 (unknown) (no date) (unknown) [facility] (no value) (units unknown) (unknown) Result panel 787 (unknown) (no date) (unknown) [facility] (no value) (units unknown) (unknown) Result panel 788 (unknown) (no date) (unknown) [facility] (no value) (units unknown) (unknown) Result panel 789 (unknown) (no date) (unknown) [facility] (no value) (units unknown) (unknown) Result panel 790 (unknown) (no date) (unknown) [facility] (no value) (units unknown) (unknown) Result panel 791 (unknown) (no date) (unknown) [facility] (no value) (units unknown) (unknown) Result panel 792 (unknown) (no date) (unknown) [facility] (no value) (units unknown) (unknown) Result panel 793 (unknown) (no date) (unknown) [facility] (no value) (units unknown) (unknown) Result panel 794 (unknown) (no date) (unknown) [facility] (no value) (units unknown) (unknown) Result panel 795 (unknown) (no date) (unknown) [facility] (no value) (units unknown) (unknown) Result panel 796 (unknown) (no date) (unknown) [facility] (no value) (units unknown) (unknown) Result panel 797 (unknown) (no date) (unknown) [facility] (no value) (units unknown) (unknown) Result panel 798 (unknown) (no date) (unknown) [facility] (no value) (units unknown) (unknown) Result panel 799 (unknown) (no date) (unknown) [facility] (no value) (units unknown) (unknown) Result panel 800 (unknown) (no date) (unknown) [facility] (no value) (units unknown) (unknown) Result panel 801 (unknown) (no date) (unknown) [facility] (no value) (units unknown) (unknown) Result panel 802 (unknown) (no date) (unknown) [facility] (no value) (units unknown) (unknown) Result panel 803 (unknown) (no date) (unknown) [facility] (no value) (units unknown) (unknown) Result panel 804 (unknown) (no date) (unknown) [facility] (no value) (units unknown) (unknown) Result panel 805 (unknown) (no date) (unknown) [facility] (no value) (units unknown) (unknown) Result panel 806 (unknown) (no date) (unknown) [facility] (no value) (units unknown) (unknown) Result panel 807 (unknown) (no date) (unknown) [facility] (no value) (units unknown) (unknown) Result panel 808 (unknown) (no date) (unknown) [facility] (no value) (units unknown) (unknown) Result panel 809 (unknown) (no date) (unknown) [facility] (no value) (units unknown) (unknown) Result panel 810 (unknown) (no date) (unknown) [facility] (no value) (units unknown) (unknown) Result panel 811 (unknown) (no date) (unknown) [facility] (no value) (units unknown) (unknown) Result panel 812 (unknown) (no date) (unknown) [facility] (no value) (units unknown) (unknown) Result panel 813 (unknown) (no date) (unknown) [facility] (no value) (units unknown) (unknown) Result panel 814 (unknown) (no date) (unknown) [facility] (no value) (units unknown) (unknown) Result panel 815 (unknown) (no date) (unknown) [facility] (no value) (units unknown) (unknown) Result panel 816 (unknown) (no date) (unknown) [facility] (no value) (units unknown) (unknown) Result panel 817 (unknown) (no date) (unknown) [facility] (no value) (units unknown) (unknown) Result panel 818 (unknown) (no date) (unknown) [facility] (no value) (units unknown) (unknown) Result panel 819 (unknown) (no date) (unknown) [facility] (no value) (units unknown) (unknown) Result panel 820 (unknown) (no date) (unknown) [facility] (no value) (units unknown) (unknown) Result panel 821 (unknown) (no date) (unknown) [facility] (no value) (units unknown) (unknown) Result panel 822 (unknown) (no date) (unknown) [facility] (no value) (units unknown) (unknown) Result panel 823 (unknown) (no date) (unknown) [facility] (no value) (units unknown) (unknown) Result panel 824 (unknown) (no date) (unknown) [facility] (no value) (units unknown) (unknown) Result panel 825 (unknown) (no date) (unknown) [facility] (no value) (units unknown) (unknown) Result panel 826 (unknown) (no date) (unknown) [facility] (no value) (units unknown) (unknown) Result panel 827 (unknown) (no date) (unknown) [facility] (no value) (units unknown) (unknown) Result panel 828 (unknown) (no date) (unknown) [facility] (no value) (units unknown) (unknown) Result panel 829 (unknown) (no date) (unknown) [facility] (no value) (units unknown) (unknown) Result panel 830 (unknown) (no date) (unknown) [facility] (no value) (units unknown) (unknown) Result panel 831 (unknown) (no date) (unknown) [facility] (no value) (units unknown) (unknown) Result panel 832 (unknown) (no date) (unknown) [facility] (no value) (units unknown) (unknown) Result panel 833 (unknown) (no date) (unknown) [facility] (no value) (units unknown) (unknown) Result panel 834 (unknown) (no date) (unknown) [facility] (no value) (units unknown) (unknown) Result panel 835 (unknown) (no date) (unknown) [facility] (no value) (units unknown) (unknown) Result panel 836 (unknown) (no date) (unknown) [facility] (no value) (units unknown) (unknown) Result panel 837 (unknown) (no date) (unknown) [facility] (no value) (units unknown) (unknown) Result panel 838 (unknown) (no date) (unknown) [facility] (no value) (units unknown) (unknown) Result panel 839 (unknown) (no date) (unknown) [facility] (no value) (units unknown) (unknown) Result panel 840 (unknown) (no date) (unknown) [facility] (no value) (units unknown) (unknown) Result panel 841 (unknown) (no date) (unknown) [facility] (no value) (units unknown) (unknown) Result panel 842 (unknown) (no date) (unknown) [facility] (no value) (units unknown) (unknown) Result panel 843 (unknown) (no date) (unknown) [facility] (no value) (units unknown) (unknown) Result panel 844 (unknown) (no date) (unknown) [facility] (no value) (units unknown) (unknown) Result panel 845 (unknown) (no date) (unknown) [facility] (no value) (units unknown) (unknown) Result panel 846 (unknown) (no date) (unknown) [facility] (no value) (units unknown) (unknown) Result panel 847 (unknown) (no date) (unknown) [facility] (no value) (units unknown) (unknown) Result panel 848 (unknown) (no date) (unknown) [facility] (no value) (units unknown) (unknown) Result panel 849 (unknown) (no date) (unknown) [facility] (no value) (units unknown) (unknown) Result panel 850 (unknown) (no date) (unknown) [facility] (no value) (units unknown) (unknown) Result panel 851 (unknown) (no date) (unknown) [facility] (no value) (units unknown) (unknown) Result panel 852 (unknown) (no date) (unknown) [facility] (no value) (units unknown) (unknown) Result panel 853 (unknown) (no date) (unknown) [facility] (no value) (units unknown) (unknown) Result panel 854 (unknown) (no date) (unknown) [facility] (no value) (units unknown) (unknown) Result panel 855 (unknown) (no date) (unknown) [facility] (no value) (units unknown) (unknown) Result panel 856 (unknown) (no date) (unknown) [facility] (no value) (units unknown) (unknown) Result panel 857 (unknown) (no date) (unknown) [facility] (no value) (units unknown) (unknown) Result panel 858 (unknown) (no date) (unknown) [facility] (no value) (units unknown) (unknown) Result panel 859 (unknown) (no date) (unknown) [facility] (no value) (units unknown) (unknown) Result panel 860 (unknown) (no date) (unknown) [facility] (no value) (units unknown) (unknown) Result panel 861 (unknown) (no date) (unknown) [facility] (no value) (units unknown) (unknown) Result panel 862 (unknown) (no date) (unknown) [facility] (no value) (units unknown) (unknown) Result panel 863 (unknown) (no date) (unknown) [facility] (no value) (units unknown) (unknown) Result panel 864 (unknown) (no date) (unknown) [facility] (no value) (units unknown) (unknown) Result panel 865 (unknown) (no date) (unknown) [facility] (no value) (units unknown) (unknown) Result panel 866 (unknown) (no date) (unknown) [facility] (no value) (units unknown) (unknown) Result panel 867 (unknown) (no date) (unknown) [facility] (no value) (units unknown) (unknown) Result panel 868 (unknown) (no date) (unknown) [facility] (no value) (units unknown) (unknown) Result panel 869 (unknown) (no date) (unknown) [facility] (no value) (units unknown) (unknown) Result panel 870 (unknown) (no date) (unknown) [facility] (no value) (units unknown) (unknown) Result panel 871 (unknown) (no date) (unknown) [facility] (no value) (units unknown) (unknown) Result panel 872 (unknown) (no date) (unknown) [facility] (no value) (units unknown) (unknown) Result panel 873 (unknown) (no date) (unknown) [facility] (no value) (units unknown) (unknown) Result panel 874 (unknown) (no date) (unknown) [facility] (no value) (units unknown) (unknown) Result panel 875 (unknown) (no date) (unknown) [facility] (no value) (units unknown) (unknown) Result panel 876 (unknown) (no date) (unknown) [facility] (no value) (units unknown) (unknown) Result panel 877 (unknown) (no date) (unknown) [facility] (no value) (units unknown) (unknown) Result panel 878 (unknown) (no date) (unknown) [facility] (no value) (units unknown) (unknown) Result panel 879 (unknown) (no date) (unknown) [facility] (no value) (units unknown) (unknown) Result panel 880 (unknown) (no date) (unknown) [facility] (no value) (units unknown) (unknown) Result panel 881 (unknown) (no date) (unknown) [facility] (no value) (units unknown) (unknown) Result panel 882 (unknown) (no date) (unknown) [facility] (no value) (units unknown) (unknown) Result panel 883 (unknown) (no date) (unknown) [facility] (no value) (units unknown) (unknown) Result panel 884 (unknown) (no date) (unknown) [facility] (no value) (units unknown) (unknown) Result panel 885 (unknown) (no date) (unknown) [facility] (no value) (units unknown) (unknown) Result panel 886 (unknown) (no date) (unknown) [facility] (no value) (units unknown) (unknown) Result panel 887 (unknown) (no date) (unknown) [facility] (no value) (units unknown) (unknown) Result panel 888 (unknown) (no date) (unknown) [facility] (no value) (units unknown) (unknown) Result panel 889 (unknown) (no date) (unknown) [facility] (no value) (units unknown) (unknown) Result panel 890 (unknown) (no date) (unknown) [facility] (no value) (units unknown) (unknown) Result panel 891 (unknown) (no date) (unknown) [facility] (no value) (units unknown) (unknown) Result panel 892 (unknown) (no date) (unknown) [facility] (no value) (units unknown) (unknown) Result panel 893 (unknown) (no date) (unknown) [facility] (no value) (units unknown) (unknown) Result panel 894 (unknown) (no date) (unknown) [facility] (no value) (units unknown) (unknown) Result panel 895 (unknown) (no date) (unknown) [facility] (no value) (units unknown) (unknown) Result panel 896 (unknown) (no date) (unknown) [facility] (no value) (units unknown) (unknown) Result panel 897 (unknown) (no date) (unknown) [facility] (no value) (units unknown) (unknown) Result panel 898 (unknown) (no date) (unknown) [facility] (no value) (units unknown) (unknown) Result panel 899 (unknown) (no date) (unknown) [facility] (no value) (units unknown) (unknown) Result panel 900 (unknown) (no date) (unknown) [facility] (no value) (units unknown) (unknown) Result panel 901 (unknown) (no date) (unknown) [facility] (no value) (units unknown) (unknown) Result panel 902 (unknown) (no date) (unknown) [facility] (no value) (units unknown) (unknown) Result panel 903 (unknown) (no date) (unknown) [facility] (no value) (units unknown) (unknown) Result panel 904 (unknown) (no date) (unknown) [facility] (no value) (units unknown) (unknown) Result panel 905 (unknown) (no date) (unknown) [facility] (no value) (units unknown) (unknown) Result panel 906 (unknown) (no date) (unknown) [facility] (no value) (units unknown) (unknown) Result panel 907 (unknown) (no date) (unknown) [facility] (no value) (units unknown) (unknown) Result panel 908 (unknown) (no date) (unknown) [facility] (no value) (units unknown) (unknown) Result panel 909 (unknown) (no date) (unknown) [facility] (no value) (units unknown) (unknown) Result panel 910 (unknown) (no date) (unknown) [facility] (no value) (units unknown) (unknown) Result panel 911 (unknown) (no date) (unknown) [facility] (no value) (units unknown) (unknown) Result panel 912 (unknown) (no date) (unknown) [facility] (no value) (units unknown) (unknown) Result panel 913 (unknown) (no date) (unknown) [facility] (no value) (units unknown) (unknown) Result panel 914 (unknown) (no date) (unknown) [facility] (no value) (units unknown) (unknown) Result panel 915 (unknown) (no date) (unknown) [facility] (no value) (units unknown) (unknown) Result panel 916 (unknown) (no date) (unknown) [facility] (no value) (units unknown) (unknown) Result panel 917 (unknown) (no date) (unknown) [facility] (no value) (units unknown) (unknown) Result panel 918 (unknown) (no date) (unknown) [facility] (no value) (units unknown) (unknown) Result panel 919 (unknown) (no date) (unknown) [facility] (no value) (units unknown) (unknown) Result panel 920 (unknown) (no date) (unknown) [facility] (no value) (units unknown) (unknown) Result panel 921 (unknown) (no date) (unknown) [facility] (no value) (units unknown) (unknown) Result panel 922 (unknown) (no date) (unknown) [facility] (no value) (units unknown) (unknown) Result panel 923 (unknown) (no date) (unknown) [facility] (no value) (units unknown) (unknown) Result panel 924 (unknown) (no date) (unknown) [facility] (no value) (units unknown) (unknown) Result panel 925 (unknown) (no date) (unknown) [facility] (no value) (units unknown) (unknown) Result panel 926 (unknown) (no date) (unknown) [facility] (no value) (units unknown) (unknown) Result panel 927 (unknown) (no date) (unknown) [facility] (no value) (units unknown) (unknown) Result panel 928 (unknown) (no date) (unknown) [facility] (no value) (units unknown) (unknown) Result panel 929 (unknown) (no date) (unknown) [facility] (no value) (units unknown) (unknown) Result panel 930 (unknown) (no date) (unknown) [facility] (no value) (units unknown) (unknown) Result panel 931 (unknown) (no date) (unknown) [facility] (no value) (units unknown) (unknown) Result panel 932 (unknown) (no date) (unknown) [facility] (no value) (units unknown) (unknown) Result panel 933 (unknown) (no date) (unknown) [facility] (no value) (units unknown) (unknown) Result panel 934 (unknown) (no date) (unknown) [facility] (no value) (units unknown) (unknown) Result panel 935 (unknown) (no date) (unknown) [facility] (no value) (units unknown) (unknown) Result panel 936 (unknown) (no date) (unknown) [facility] (no value) (units unknown) (unknown) Result panel 937 (unknown) (no date) (unknown) [facility] (no value) (units unknown) (unknown) Result panel 938 (unknown) (no date) (unknown) [facility] (no value) (units unknown) (unknown) Result panel 939 (unknown) (no date) (unknown) [facility] (no value) (units unknown) (unknown) Result panel 940 (unknown) (no date) (unknown) [facility] (no value) (units unknown) (unknown) Result panel 941 (unknown) (no date) (unknown) [facility] (no value) (units unknown) (unknown) Result panel 942 (unknown) (no date) (unknown) [facility] (no value) (units unknown) (unknown) Result panel 943 (unknown) (no date) (unknown) [facility] (no value) (units unknown) (unknown) Result panel 944 (unknown) (no date) (unknown) [facility] (no value) (units unknown) (unknown) Result panel 945 (unknown) (no date) (unknown) [facility] (no value) (units unknown) (unknown) Result panel 946 (unknown) (no date) (unknown) [facility] (no value) (units unknown) (unknown) Result panel 947 (unknown) (no date) (unknown) [facility] (no value) (units unknown) (unknown) Result panel 948 (unknown) (no date) (unknown) [facility] (no value) (units unknown) (unknown) Result panel 949 (unknown) (no date) (unknown) [facility] (no value) (units unknown) (unknown) Result panel 950 (unknown) (no date) (unknown) [facility] (no value) (units unknown) (unknown) Result panel 951 (unknown) (no date) (unknown) [facility] (no value) (units unknown) (unknown) Result panel 952 (unknown) (no date) (unknown) [facility] (no value) (units unknown) (unknown) Result panel 953 (unknown) (no date) (unknown) [facility] (no value) (units unknown) (unknown) Result panel 954 (unknown) (no date) (unknown) [facility] (no value) (units unknown) (unknown) Result panel 955 (unknown) (no date) (unknown) [facility] (no value) (units unknown) (unknown) Result panel 956 (unknown) (no date) (unknown) [facility] (no value) (units unknown) (unknown) Result panel 957 (unknown) (no date) (unknown) [facility] (no value) (units unknown) (unknown) Result panel 958 (unknown) (no date) (unknown) [facility] (no value) (units unknown) (unknown) Result panel 959 (unknown) (no date) (unknown) [facility] (no value) (units unknown) (unknown) Result panel 960 (unknown) (no date) (unknown) [facility] (no value) (units unknown) (unknown) Result panel 961 (unknown) (no date) (unknown) [facility] (no value) (units unknown) (unknown) Result panel 962 (unknown) (no date) (unknown) [facility] (no value) (units unknown) (unknown) Result panel 963 (unknown) (no date) (unknown) [facility] (no value) (units unknown) (unknown) Result panel 964 (unknown) (no date) (unknown) [facility] (no value) (units unknown) (unknown) Result panel 965 (unknown) (no date) (unknown) [facility] (no value) (units unknown) (unknown) Result panel 966 (unknown) (no date) (unknown) [facility] (no value) (units unknown) (unknown) Result panel 967 (unknown) (no date) (unknown) [facility] (no value) (units unknown) (unknown) Result panel 968 (unknown) (no date) (unknown) [facility] (no value) (units unknown) (unknown) Result panel 969 (unknown) (no date) (unknown) [facility] (no value) (units unknown) (unknown) Result panel 970 (unknown) (no date) (unknown) [facility] (no value) (units unknown) (unknown) Result panel 971 (unknown) (no date) (unknown) [facility] (no value) (units unknown) (unknown) Result panel 972 (unknown) (no date) (unknown) [facility] (no value) (units unknown) (unknown) Result panel 973 (unknown) (no date) (unknown) [facility] (no value) (units unknown) (unknown) Result panel 974 (unknown) (no date) (unknown) [facility] (no value) (units unknown) (unknown) Result panel 975 (unknown) (no date) (unknown) [facility] (no value) (units unknown) (unknown) Result panel 976 (unknown) (no date) (unknown) [facility] (no value) (units unknown) (unknown) Result panel 977 (unknown) (no date) (unknown) [facility] (no value) (units unknown) (unknown) Result panel 978 (unknown) (no date) (unknown) [facility] (no value) (units unknown) (unknown) Result panel 979 (unknown) (no date) (unknown) [facility] (no value) (units unknown) (unknown) Result panel 980 (unknown) (no date) (unknown) [facility] (no value) (units unknown) (unknown) Result panel 981 (unknown) (no date) (unknown) [facility] (no value) (units unknown) (unknown) Result panel 982 (unknown) (no date) (unknown) [facility] (no value) (units unknown) (unknown) Result panel 983 (unknown) (no date) (unknown) [facility] (no value) (units unknown) (unknown) Result panel 984 (unknown) (no date) (unknown) [facility] (no value) (units unknown) (unknown) Result panel 985 (unknown) (no date) (unknown) [facility] (no value) (units unknown) (unknown) Result panel 986 (unknown) (no date) (unknown) [facility] (no value) (units unknown) (unknown) Result panel 987 (unknown) (no date) (unknown) [facility] (no value) (units unknown) (unknown) Result panel 988 (unknown) (no date) (unknown) [facility] (no value) (units unknown) (unknown) Result panel 989 (unknown) (no date) (unknown) [facility] (no value) (units unknown) (unknown) Result panel 990 (unknown) (no date) (unknown) [facility] (no value) (units unknown) (unknown) Result panel 991 (unknown) (no date) (unknown) [facility] (no value) (units unknown) (unknown) Result panel 992 (unknown) (no date) (unknown) [facility] (no value) (units unknown) (unknown) Result panel 993 (unknown) (no date) (unknown) [facility] (no value) (units unknown) (unknown) Result panel 994 (unknown) (no date) (unknown) [facility] (no value) (units unknown) (unknown) Result panel 995 (unknown) (no date) (unknown) [facility] (no value) (units unknown) (unknown) Result panel 996 (unknown) (no date) (unknown) [facility] (no value) (units unknown) (unknown) Result panel 997 (unknown) (no date) (unknown) [facility] (no value) (units unknown) (unknown) Result panel 998 (unknown) (no date) (unknown) [facility] (no value) (units unknown) (unknown) Result panel 999 (unknown) (no date) (unknown) [facility] (no value) (units unknown) (unknown) Result panel 1000 (unknown) (no date) (unknown) [facility] (no value) (units unknown) (unknown) Result panel 1001 (unknown) (no date) (unknown) [facility] (no value) (units unknown) (unknown) Result panel 1002 (unknown) (no date) (unknown) [facility] (no value) (units unknown) (unknown) Result panel 1003 (unknown) (no date) (unknown) [facility] (no value) (units unknown) (unknown) Result panel 1004 (unknown) (no date) (unknown) [facility] (no value) (units unknown) (unknown) Result panel 1005 (unknown) (no date) (unknown) [facility] (no value) (units unknown) (unknown) Result panel 1006 (unknown) (no date) (unknown) [facility] (no value) (units unknown) (unknown) Result panel 1007 (unknown) (no date) (unknown) [facility] (no value) (units unknown) (unknown) Result panel 1008 (unknown) (no date) (unknown) [facility] (no value) (units unknown) (unknown) Result panel 1009 (unknown) (no date) (unknown) [facility] (no value) (units unknown) (unknown) Result panel 1010 (unknown) (no date) (unknown) [facility] (no value) (units unknown) (unknown) Result panel 1011 (unknown) (no date) (unknown) [facility] (no value) (units unknown) (unknown) Result panel 1012 (unknown) (no date) (unknown) [facility] (no value) (units unknown) (unknown) Result panel 1013 (unknown) (no date) (unknown) [facility] (no value) (units unknown) (unknown) Result panel 1014 (unknown) (no date) (unknown) [facility] (no value) (units unknown) (unknown) Result panel 1015 (unknown) (no date) (unknown) [facility] (no value) (units unknown) (unknown) Result panel 1016 (unknown) (no date) (unknown) [facility] (no value) (units unknown) (unknown) Result panel 1017 (unknown) (no date) (unknown) [facility] (no value) (units unknown) (unknown) Result panel 1018 (unknown) (no date) (unknown) [facility] (no value) (units unknown) (unknown) Result panel 1019 (unknown) (no date) (unknown) [facility] (no value) (units unknown) (unknown) Result panel 1020 (unknown) (no date) (unknown) [facility] (no value) (units unknown) (unknown) Result panel 1021 (unknown) (no date) (unknown) [facility] (no value) (units unknown) (unknown) Result panel 1022 (unknown) (no date) (unknown) [facility] (no value) (units unknown) (unknown) Result panel 1023 (unknown) (no date) (unknown) [facility] (no value) (units unknown) (unknown) Result panel 1024 (unknown) (no date) (unknown) [facility] (no value) (units unknown) (unknown) Result panel 1025 (unknown) (no date) (unknown) [facility] (no value) (units unknown) (unknown) Result panel 1026 (unknown) (no date) (unknown) [facility] (no value) (units unknown) (unknown) Result panel 1027 (unknown) (no date) (unknown) [facility] (no value) (units unknown) (unknown) Result panel 1028 (unknown) (no date) (unknown) [facility] (no value) (units unknown) (unknown) Result panel 1029 (unknown) (no date) (unknown) [facility] (no value) (units unknown) (unknown) Result panel 1030 (unknown) (no date) (unknown) [facility] (no value) (units unknown) (unknown) Result panel 1031 (unknown) (no date) (unknown) [facility] (no value) (units unknown) (unknown) Result panel 1032 (unknown) (no date) (unknown) [facility] (no value) (units unknown) (unknown) Result panel 1033 (unknown) (no date) (unknown) [facility] (no value) (units unknown) (unknown) Result panel 1034 (unknown) (no date) (unknown) [facility] (no value) (units unknown) (unknown) Result panel 1035 (unknown) (no date) (unknown) [facility] (no value) (units unknown) (unknown) Result panel 1036 (unknown) (no date) (unknown) [facility] (no value) (units unknown) (unknown) Result panel 1037 (unknown) (no date) (unknown) [facility] (no value) (units unknown) (unknown) Result panel 1038 (unknown) (no date) (unknown) [facility] (no value) (units unknown) (unknown) Result panel 1039 (unknown) (no date) (unknown) [facility] (no value) (units unknown) (unknown) Result panel 1040 (unknown) (no date) (unknown) [facility] (no value) (units unknown) (unknown) Result panel 1041 (unknown) (no date) (unknown) [facility] (no value) (units unknown) (unknown) Result panel 1042 (unknown) (no date) (unknown) [facility] (no value) (units unknown) (unknown) Result panel 1043 (unknown) (no date) (unknown) [facility] (no value) (units unknown) (unknown) Result panel 1044 (unknown) (no date) (unknown) [facility] (no value) (units unknown) (unknown) Result panel 1045 (unknown) (no date) (unknown) [facility] (no value) (units unknown) (unknown) Result panel 1046 (unknown) (no date) (unknown) [facility] (no value) (units unknown) (unknown) Result panel 1047 (unknown) (no date) (unknown) [facility] (no value) (units unknown) (unknown) Result panel 1048 (unknown) (no date) (unknown) [facility] (no value) (units unknown) (unknown) Result panel 1049 (unknown) (no date) (unknown) [facility] (no value) (units unknown) (unknown) Result panel 1050 (unknown) (no date) (unknown) [facility] (no value) (units unknown) (unknown) Result panel 1051 (unknown) (no date) (unknown) [facility] (no value) (units unknown) (unknown) Result panel 1052 (unknown) (no date) (unknown) [facility] (no value) (units unknown) (unknown) Result panel 1053 (unknown) (no date) (unknown) [facility] (no value) (units unknown) (unknown) Result panel 1054 (unknown) (no date) (unknown) [facility] (no value) (units unknown) (unknown) Result panel 1055 (unknown) (no date) (unknown) [facility] (no value) (units unknown) (unknown) Result panel 1056 (unknown) (no date) (unknown) [facility] (no value) (units unknown) (unknown) Result panel 1057 (unknown) (no date) (unknown) [facility] (no value) (units unknown) (unknown) Result panel 1058 (unknown) (no date) (unknown) [facility] (no value) (units unknown) (unknown) Result panel 1059 (unknown) (no date) (unknown) [facility] (no value) (units unknown) (unknown) Result panel 1060 (unknown) (no date) (unknown) [facility] (no value) (units unknown) (unknown) Result panel 1061 (unknown) (no date) (unknown) [facility] (no value) (units unknown) (unknown) Result panel 1062 (unknown) (no date) (unknown) [facility] (no value) (units unknown) (unknown) Result panel 1063 (unknown) (no date) (unknown) [facility] (no value) (units unknown) (unknown) Result panel 1064 (unknown) (no date) (unknown) [facility] (no value) (units unknown) (unknown) Result panel 1065 (unknown) (no date) (unknown) [facility] (no value) (units unknown) (unknown) Result panel 1066 (unknown) (no date) (unknown) [facility] (no value) (units unknown) (unknown) Result panel 1067 (unknown) (no date) (unknown) [facility] (no value) (units unknown) (unknown) Result panel 1068 (unknown) (no date) (unknown) [facility] (no value) (units unknown) (unknown) Result panel 1069 (unknown) (no date) (unknown) [facility] (no value) (units unknown) (unknown) Result panel 1070 (unknown) (no date) (unknown) [facility] (no value) (units unknown) (unknown) Result panel 1071 (unknown) (no date) (unknown) [facility] (no value) (units unknown) (unknown) Result panel 1072 (unknown) (no date) (unknown) [facility] (no value) (units unknown) (unknown) Result panel 1073 (unknown) (no date) (unknown) [facility] (no value) (units unknown) (unknown) Result panel 1074 (unknown) (no date) (unknown) [facility] (no value) (units unknown) (unknown) Result panel 1075 (unknown) (no date) (unknown) [facility] (no value) (units unknown) (unknown) Result panel 1076 (unknown) (no date) (unknown) [facility] (no value) (units unknown) (unknown) Result panel 1077 (unknown) (no date) (unknown) [facility] (no value) (units unknown) (unknown) Result panel 1078 (unknown) (no date) (unknown) [facility] (no value) (units unknown) (unknown) Result panel 1079 (unknown) (no date) (unknown) [facility] (no value) (units unknown) (unknown) Result panel 1080 (unknown) (no date) (unknown) [facility] (no value) (units unknown) (unknown) Result panel 1081 (unknown) (no date) (unknown) [facility] (no value) (units unknown) (unknown) Result panel 1082 (unknown) (no date) (unknown) [facility] (no value) (units unknown) (unknown) Result panel 1083 (unknown) (no date) (unknown) [facility] (no value) (units unknown) (unknown) Result panel 1084 (unknown) (no date) (unknown) [facility] (no value) (units unknown) (unknown) Result panel 1085 (unknown) (no date) (unknown) [facility] (no value) (units unknown) (unknown) Result panel 1086 (unknown) (no date) (unknown) [facility] (no value) (units unknown) (unknown) Result panel 1087 (unknown) (no date) (unknown) [facility] (no value) (units unknown) (unknown) Result panel 1088 (unknown) (no date) (unknown) [facility] (no value) (units unknown) (unknown) Result panel 1089 (unknown) (no date) (unknown) [facility] (no value) (units unknown) (unknown) Result panel 1090 (unknown) (no date) (unknown) [facility] (no value) (units unknown) (unknown) Result panel 1091 (unknown) (no date) (unknown) [facility] (no value) (units unknown) (unknown) Result panel 1092 (unknown) (no date) (unknown) [facility] (no value) (units unknown) (unknown) Result panel 1093 (unknown) (no date) (unknown) [facility] (no value) (units unknown) (unknown) Result panel 1094 (unknown) (no date) (unknown) [facility] (no value) (units unknown) (unknown) Result panel 1095 (unknown) (no date) (unknown) [facility] (no value) (units unknown) (unknown) Result panel 1096 (unknown) (no date) (unknown) [facility] (no value) (units unknown) (unknown) Result panel 1097 (unknown) (no date) (unknown) [facility] (no value) (units unknown) (unknown) Result panel 1098 (unknown) (no date) (unknown) [facility] (no value) (units unknown) (unknown) Result panel 1099 (unknown) (no date) (unknown) [facility] (no value) (units unknown) (unknown) Result panel 1100 (unknown) (no date) (unknown) [facility] (no value) (units unknown) (unknown) Result panel 1101 (unknown) (no date) (unknown) [facility] (no value) (units unknown) (unknown) Result panel 1102 (unknown) (no date) (unknown) [facility] (no value) (units unknown) (unknown) Result panel 1103 (unknown) (no date) (unknown) [facility] (no value) (units unknown) (unknown) Result panel 1104 (unknown) (no date) (unknown) [facility] (no value) (units unknown) (unknown) Result panel 1105 (unknown) (no date) (unknown) [facility] (no value) (units unknown) (unknown) Result panel 1106 (unknown) (no date) (unknown) [facility] (no value) (units unknown) (unknown) Result panel 1107 (unknown) (no date) (unknown) [facility] (no value) (units unknown) (unknown) Result panel 1108 (unknown) (no date) (unknown) [facility] (no value) (units unknown) (unknown) Result panel 1109 (unknown) (no date) (unknown) [facility] (no value) (units unknown) (unknown) Result panel 1110 (unknown) (no date) (unknown) [facility] (no value) (units unknown) (unknown) Result panel 1111 (unknown) (no date) (unknown) [facility] (no value) (units unknown) (unknown) Result panel 1112 (unknown) (no date) (unknown) [facility] (no value) (units unknown) (unknown) Result panel 1113 (unknown) (no date) (unknown) [facility] (no value) (units unknown) (unknown) Result panel 1114 (unknown) (no date) (unknown) [facility] (no value) (units unknown) (unknown) Result panel 1115 (unknown) (no date) (unknown) [facility] (no value) (units unknown) (unknown) Result panel 1116 (unknown) (no date) (unknown) [facility] (no value) (units unknown) (unknown) Result panel 1117 (unknown) (no date) (unknown) [facility] (no value) (units unknown) (unknown) Result panel 1118 (unknown) (no date) (unknown) [facility] (no value) (units unknown) (unknown) Result panel 1119 (unknown) (no date) (unknown) [facility] (no value) (units unknown) (unknown) Result panel 1120 (unknown) (no date) (unknown) [facility] (no value) (units unknown) (unknown) Result panel 1121 (unknown) (no date) (unknown) [facility] (no value) (units unknown) (unknown) Result panel 1122 (unknown) (no date) (unknown) [facility] (no value) (units unknown) (unknown) Result panel 1123 (unknown) (no date) (unknown) [facility] (no value) (units unknown) (unknown) Result panel 1124 (unknown) (no date) (unknown) [facility] (no value) (units unknown) (unknown) Result panel 1125 (unknown) (no date) (unknown) [facility] (no value) (units unknown) (unknown) Result panel 1126 (unknown) (no date) (unknown) [facility] (no value) (units unknown) (unknown) Result panel 1127 (unknown) (no date) (unknown) [facility] (no value) (units unknown) (unknown) Result panel 1128 (unknown) (no date) (unknown) [facility] (no value) (units unknown) (unknown) Result panel 1129 (unknown) (no date) (unknown) [facility] (no value) (units unknown) (unknown) Result panel 1130 (unknown) (no date) (unknown) [facility] (no value) (units unknown) (unknown) Result panel 1131 (unknown) (no date) (unknown) [facility] (no value) (units unknown) (unknown) Result panel 1132 (unknown) (no date) (unknown) [facility] (no value) (units unknown) (unknown) Result panel 1133 (unknown) (no date) (unknown) [facility] (no value) (units unknown) (unknown) Result panel 1134 (unknown) (no date) (unknown) [facility] (no value) (units unknown) (unknown) Result panel 1135 (unknown) (no date) (unknown) [facility] (no value) (units unknown) (unknown) Result panel 1136 (unknown) (no date) (unknown) [facility] (no value) (units unknown) (unknown) Result panel 1137 (unknown) (no date) (unknown) [facility] (no value) (units unknown) (unknown) Result panel 1138 (unknown) (no date) (unknown) [facility] (no value) (units unknown) (unknown) Result panel 1139 (unknown) (no date) (unknown) [facility] (no value) (units unknown) (unknown) Result panel 1140 (unknown) (no date) (unknown) [facility] (no value) (units unknown) (unknown) Result panel 1141 (unknown) (no date) (unknown) [facility] (no value) (units unknown) (unknown) Result panel 1142 (unknown) (no date) (unknown) [facility] (no value) (units unknown) (unknown) Result panel 1143 (unknown) (no date) (unknown) [facility] (no value) (units unknown) (unknown) Result panel 1144 (unknown) (no date) (unknown) [facility] (no value) (units unknown) (unknown) Result panel 1145 (unknown) (no date) (unknown) [facility] (no value) (units unknown) (unknown) Result panel 1146 (unknown) (no date) (unknown) [facility] (no value) (units unknown) (unknown) Result panel 1147 (unknown) (no date) (unknown) [facility] (no value) (units unknown) (unknown) Result panel 1148 (unknown) (no date) (unknown) [facility] (no value) (units unknown) (unknown) Result panel 1149 (unknown) (no date) (unknown) [facility] (no value) (units unknown) (unknown) Result panel 1150 (unknown) (no date) (unknown) [facility] (no value) (units unknown) (unknown) Result panel 1151 (unknown) (no date) (unknown) [facility] (no value) (units unknown) (unknown) Result panel 1152 (unknown) (no date) (unknown) [facility] (no value) (units unknown) (unknown) Result panel 1153 (unknown) (no date) (unknown) [facility] (no value) (units unknown) (unknown) Result panel 1154 (unknown) (no date) (unknown) [facility] (no value) (units unknown) (unknown) Result panel 1155 (unknown) (no date) (unknown) [facility] (no value) (units unknown) (unknown) Result panel 1156 (unknown) (no date) (unknown) [facility] (no value) (units unknown) (unknown) Result panel 1157 (unknown) (no date) (unknown) [facility] (no value) (units unknown) (unknown) Result panel 1158 (unknown) (no date) (unknown) [facility] (no value) (units unknown) (unknown) Result panel 1159 (unknown) (no date) (unknown) (unknown) (no value) (units unknown) (unknown) (unknown) (no date) (unknown) (unknown) [id number] (units unknown) (unknown) (unknown) (no date) (unknown) (unknown) 02/09/23 (units unknown) (unknown) (unknown) (no date) (unknown) (unknown) 1. No acute cardiopulmonary abnormality. (units unknown) (unknown) (unknown) (no date) (unknown) (unknown) [address] [place] [address] (units unknown) (unknown) (unknown) (no date) (unknown) (unknown) 2. Stable cardiomegaly. (units unknown) (unknown) (unknown) (no date) (unknown) (unknown) Accession Number: [id number] (units unknown) (unknown) (unknown) (no date) (unknown) (unknown) Age/Sex: 87 / F Date of Service: (units unknown) (unknown) (unknown) (no date) (unknown) (unknown) JENN Lopez [id number] (units unknown) (unknown) (unknown) (no date) (unknown) (unknown) Approved by: Gamaliel Dobbins M.D. on 02/09/2023 at 19:58 (units unknown) (unknown) (unknown) (no date) (unknown) (unknown) Bones and chest wall: No suspicious bony lesions. Overlying soft tissues (units unknown) (unknown) (unknown) (no date) (unknown) (unknown) COMPARISON: [facility], CR, XR CHEST 1V, 12/06/2022, 13:21. (units unknown) (unknown) (unknown) (no date) (unknown) (unknown) : 1935 Acct:[id number] (units unknown) (unknown) (unknown) (no date) (unknown) (unknown) Dictated by: Gamaliel Dobbins M.D. on 02/09/2023 at 19:57 (units unknown) (unknown) (unknown) (no date) (unknown) (unknown) FINDINGS: (units unknown) (unknown) (unknown) (no date) (unknown) (unknown) IMPRESSION: (units unknown) (unknown) (unknown) (no date) (unknown) (unknown) INDICATIONS: chest pain (units unknown) (unknown) (unknown) (no date) (unknown) (unknown) [facility] (units unknown) (unknown) (unknown) (no date) (unknown) (unknown) Loc: ED (units unknown) (unknown) (unknown) (no date) (unknown) (unknown) Lungs and pleura: Lungs are clear. No pleural effusions or pneumothorax. (units unknown) (unknown) (unknown) (no date) (unknown) (unknown) Mediastinum: Normal mediastinal contours. The aorta is tortuous. The heart is (units unknown) (unknown) (unknown) (no date) (unknown) (unknown) Ordering Provider: Glo Vela D.O. (units unknown) (unknown) (unknown) (no date) (unknown) (unknown) PROCEDURE: XR CHEST 1V (units unknown) (unknown) (unknown) (no date) (unknown) (unknown) Patient: Roselyn Mejia MR#: [id number] (units unknown) (unknown) (unknown) (no date) (unknown) (unknown) Procedure: XR chest 1V (units unknown) (unknown) (unknown) (no date) (unknown) (unknown) Signed (units unknown) (unknown) (unknown) (no date) (unknown) (unknown) Surgical changes and devices: Status post median sternotomy. (units unknown) (unknown) (unknown) (no date) (unknown) (unknown) TECHNIQUE: One view of the chest was acquired. (units unknown) (unknown) (unknown) (no date) (unknown) (unknown) XRay Report (units unknown) (unknown) (unknown) (no date) (unknown) (unknown) appear (units unknown) (unknown) (unknown) (no date) (unknown) (unknown) enlarged, stable. Interstitial prominence is unchanged compared to the prior (units unknown) (unknown) (unknown) (no date) (unknown) (unknown) likely chronic. (units unknown) (unknown) (unknown) (no date) (unknown) (unknown) study and is (units unknown) (unknown) (unknown) (no date) (unknown) (unknown) unremarkable. (units unknown) (unknown) Result panel 1160 (unknown) (no date) (unknown) (unknown) 0.4 % (unknown) (unknown) (no date) (unknown) (unknown) 0.9 % (unknown) (unknown) (no date) (unknown) (unknown) 100 /ul (unknown) (unknown) (no date) (unknown) (unknown) 100 /ul (unknown) (unknown) (no date) (unknown) (unknown) 64769 /ul (unknown) (unknown) (no date) (unknown) (unknown) 12.8 x10 3/ul (unknown) (unknown) (no date) (unknown) (unknown) 1200 /ul (unknown) (unknown) (no date) (unknown) (unknown) 13.8 g/dl (unknown) (unknown) (no date) (unknown) (unknown) 16.3 % (unknown) (unknown) (no date) (unknown) (unknown) 244 x10 3/ul (unknown) (unknown) (no date) (unknown) (unknown) 28.7 pg (unknown) (unknown) (no date) (unknown) (unknown) 33.6 % (unknown) (unknown) (no date) (unknown) (unknown) 4.83 x10 6/ul (unknown) (unknown) (no date) (unknown) (unknown) 41.3 % (unknown) (unknown) (no date) (unknown) (unknown) 5.1 % (unknown) (unknown) (no date) (unknown) (unknown) 700 /ul (unknown) (unknown) (no date) (unknown) (unknown) 84.4 % (unknown) (unknown) (no date) (unknown) (unknown) 85.4 fl (unknown) (unknown) (no date) (unknown) (unknown) 9.2 % (unknown) Result panel 1161 (unknown) (no date) (unknown) (unknown) 1.1 (units unknown) (unknown) (unknown) (no date) (unknown) (unknown) 12.8 seconds (unknown) (unknown) (no date) (unknown) (unknown) 30 seconds (unknown) (unknown) (no date) (unknown) (unknown) 30 seconds (unknown) Result panel 1162 (unknown) (no date) (unknown) (unknown) 1.06 mg/dl (unknown) (unknown) (no date) (unknown) (unknown) 1.3 (units unknown) (unknown) (unknown) (no date) (unknown) (unknown) 1.9 mg/dl (unknown) (unknown) (no date) (unknown) (unknown) 10.0 mg/dl (unknown) (unknown) (no date) (unknown) (unknown) 135 mmol/l (unknown) (unknown) (no date) (unknown) (unknown) 167 mg/dl (unknown) (unknown) (no date) (unknown) (unknown) 167 mg/dl (unknown) (unknown) (no date) (unknown) (unknown) 2.7 mg/dl (unknown) (unknown) (no date) (unknown) (unknown) 22 iu/l (unknown) (unknown) (no date) (unknown) (unknown) 24.5 (units unknown) (unknown) (unknown) (no date) (unknown) (unknown) 26 mg/dl (unknown) (unknown) (no date) (unknown) (unknown) 28 iu/l (unknown) (unknown) (no date) (unknown) (unknown) 3.2 g/dl (unknown) (unknown) (no date) (unknown) (unknown) 30 u/l (unknown) (unknown) (no date) (unknown) (unknown) 33 mmol/l (unknown) (unknown) (no date) (unknown) (unknown) 4.0 mmol/l (unknown) (unknown) (no date) (unknown) (unknown) 4.1 g/dl (unknown) (unknown) (no date) (unknown) (unknown) 45 u/l (unknown) (unknown) (no date) (unknown) (unknown) 51 ml/min (unknown) (unknown) (no date) (unknown) (unknown) 51 ml/min (unknown) (unknown) (no date) (unknown) (unknown) 7.3 g/dl (unknown) (unknown) (no date) (unknown) (unknown) 76 u/l (unknown) (unknown) (no date) (unknown) (unknown) 95 mmol/l (unknown) (unknown) (no date) (unknown) (unknown) Test not performed % (unknown) (unknown) (no date) (unknown) (unknown) Test not performed % (unknown) (unknown) (no date) (unknown) (unknown) Test not performed ng/ml (unknown) (unknown) (no date) (unknown) (unknown) Test not performed ng/ml (unknown) Result panel 1163 (unknown) (no date) (unknown) (unknown) 0.017 ng/ml (unknown) (unknown) (no date) (unknown) (unknown) 0.017 ng/ml (unknown) (unknown) (no date) (unknown) (unknown) 1.06 mg/dl (unknown) (unknown) (no date) (unknown) (unknown) 1.3 (units unknown) (unknown) (unknown) (no date) (unknown) (unknown) 1.9 mg/dl (unknown) (unknown) (no date) (unknown) (unknown) 10.0 mg/dl (unknown) (unknown) (no date) (unknown) (unknown) 135 mmol/l (unknown) (unknown) (no date) (unknown) (unknown) 167 mg/dl (unknown) (unknown) (no date) (unknown) (unknown) 167 mg/dl (unknown) (unknown) (no date) (unknown) (unknown) 2.7 mg/dl (unknown) (unknown) (no date) (unknown) (unknown) 22 iu/l (unknown) (unknown) (no date) (unknown) (unknown) 24.5 (units unknown) (unknown) (unknown) (no date) (unknown) (unknown) 26 mg/dl (unknown) (unknown) (no date) (unknown) (unknown) 28 iu/l (unknown) (unknown) (no date) (unknown) (unknown) 3.2 g/dl (unknown) (unknown) (no date) (unknown) (unknown) 30 u/l (unknown) (unknown) (no date) (unknown) (unknown) 33 mmol/l (unknown) (unknown) (no date) (unknown) (unknown) 4.0 mmol/l (unknown) (unknown) (no date) (unknown) (unknown) 4.1 g/dl (unknown) (unknown) (no date) (unknown) (unknown) 45 u/l (unknown) (unknown) (no date) (unknown) (unknown) 51 ml/min (unknown) (unknown) (no date) (unknown) (unknown) 51 ml/min (unknown) (unknown) (no date) (unknown) (unknown) 7.3 g/dl (unknown) (unknown) (no date) (unknown) (unknown) 76 u/l (unknown) (unknown) (no date) (unknown) (unknown) 95 mmol/l (unknown) (unknown) (no date) (unknown) (unknown) Test not performed % (unknown) (unknown) (no date) (unknown) (unknown) Test not performed % (unknown) (unknown) (no date) (unknown) (unknown) Test not performed ng/ml (unknown) (unknown) (no date) (unknown) (unknown) Test not performed ng/ml (unknown) Result panel 1164 (unknown) (no date) (unknown) (unknown) (no value) (units unknown) (unknown) (unknown) (no date) (unknown) (unknown) (120 mg-180 mg) capsule (Fish Oil) (units unknown) (unknown) (unknown) (no date) (unknown) (unknown) (2.5 mg base)/3 mL nebulization Breath Or Wheezing (units unknown) (unknown) (unknown) (no date) (unknown) (unknown) (Cartia XT) (units unknown) (unknown) (unknown) (no date) (unknown) (unknown) 0.4 mg SUBLINGUAL Q5-15M PRN (Reason: Chest Pain) (units unknown) (unknown) (unknown) (no date) (unknown) (unknown) [id number] (units unknown) (unknown) (unknown) (no date) (unknown) (unknown) 02/09/23 02/09/23 02/09/23 Range/Units (units unknown) (unknown) (unknown) (no date) (unknown) (unknown) 02/09/23 18:21 (units unknown) (unknown) (unknown) (no date) (unknown) (unknown) 02/09/23 18:30 (units unknown) (unknown) (unknown) (no date) (unknown) (unknown) 02/09/23 (units unknown) (unknown) (unknown) (no date) (unknown) (unknown) 07/24/22 (units unknown) (unknown) (unknown) (no date) (unknown) (unknown) 1 tab PO DAILY (units unknown) (unknown) (unknown) (no date) (unknown) (unknown) 1,000 mg PO DAILY (units unknown) (unknown) (unknown) (no date) (unknown) (unknown) 10 mg PO TID PRN (Reason: Muscle Spasm) (units unknown) (unknown) (unknown) (no date) (unknown) (unknown) 10 ml PO PRN (Reason: Cough) (units unknown) (unknown) (unknown) (no date) (unknown) (unknown) 10-100mg/5ml liquid. take 10ml by mouth every 4 hrs as needed for cough (units unknown) (unknown) (unknown) (no date) (unknown) (unknown) 120 mg PO QAM (units unknown) (unknown) (unknown) (no date) (unknown) (unknown) 18:15 (units unknown) (unknown) (unknown) (no date) (unknown) (unknown) 18:21 (units unknown) (unknown) (unknown) (no date) (unknown) (unknown) 18:30 18:30 18:30 (units unknown) (unknown) (unknown) (no date) (unknown) (unknown) 20 mg PO DAILY (units unknown) (unknown) (unknown) (no date) (unknown) (unknown) 20 mg PO QAM (units unknown) (unknown) (unknown) (no date) (unknown) (unknown) 25 mg PO DAILY (units unknown) (unknown) (unknown) (no date) (unknown) (unknown) 40 mg PO QAM (units unknown) (unknown) (unknown) (no date) (unknown) (unknown) 40 mg PO QPM (units unknown) (unknown) (unknown) (no date) (unknown) (unknown) 400 unit PO DAILY (units unknown) (unknown) (unknown) (no date) (unknown) (unknown) 75 mg PO QAM (units unknown) (unknown) (unknown) (no date) (unknown) (unknown) 81 mg PO QDAY Qty: 0 (units unknown) (unknown) (unknown) (no date) (unknown) (unknown) 88 mcg PO QAM (units unknown) (unknown) (unknown) (no date) (unknown) (unknown) 90 mcg INHALATION PRN (Reason: Shortness Of Breath) (units unknown) (unknown) (unknown) (no date) (unknown) (unknown) ALT 22 (<35) IU/L (units unknown) (unknown) (unknown) (no date) (unknown) (unknown) APTT 30 (26-36) SECONDS (units unknown) (unknown) (unknown) (no date) (unknown) (unknown) AST 28 (14-36) IU/L (units unknown) (unknown) (unknown) (no date) (unknown) (unknown) Age/Sex: 87 / F (units unknown) (unknown) (unknown) (no date) (unknown) (unknown) Albumin 4.1 (3.5-5.0) g/dL (units unknown) (unknown) (unknown) (no date) (unknown) (unknown) Albumin/Globulin Ratio 1.3 (1.0-2.8) (units unknown) (unknown) (unknown) (no date) (unknown) (unknown) Alkaline Phosphatase 76 (38-126) U/L (units unknown) (unknown) (unknown) (no date) (unknown) (unknown) Allergies (units unknown) (unknown) (unknown) (no date) (unknown) (unknown) Allergy/AdvReac Type Severity Reaction Status Date / Time (units unknown) (unknown) (unknown) (no date) (unknown) (unknown) Aneurysm of infrarenal abdominal aorta (units unknown) (unknown) (unknown) (no date) (unknown) (unknown) Antibiotics) (units unknown) (unknown) (unknown) (no date) (unknown) (unknown) Aspirin (Aspirin 81 Mg Chew Tab) 324 mg PO NOW ONE (units unknown) (unknown) (unknown) (no date) (unknown) (unknown) BUN 26 H (7-17) mg/dL (units unknown) (unknown) (unknown) (no date) (unknown) (unknown) BUN/Creatinine Ratio 24.5 H (6-22) (units unknown) (unknown) (unknown) (no date) (unknown) (unknown) Baso # (Auto) 100 (0-100) /uL (units unknown) (unknown) (unknown) (no date) (unknown) (unknown) Baso % (Auto) 0.4 (0-2) % (units unknown) (unknown) (unknown) (no date) (unknown) (unknown) Bilateral carpal tunnel syndrome (units unknown) (unknown) (unknown) (no date) (unknown) (unknown) Blood Pressure 141/61 H 02/09/23 18:15 (units unknown) (unknown) (unknown) (no date) (unknown) (unknown) Blood Pressure 141/61 H (units unknown) (unknown) (unknown) (no date) (unknown) (unknown) Breathing (units unknown) (unknown) (unknown) (no date) (unknown) (unknown) CAD (coronary artery disease) (units unknown) (unknown) (unknown) (no date) (unknown) (unknown) CK-MB (CK-2) Rel Index TNP (units unknown) (unknown) (unknown) (no date) (unknown) (unknown) CK-MB (CK-2) TNP (units unknown) (unknown) (unknown) (no date) (unknown) (unknown) COPD (chronic obstructive pulmonary disease) with emphysema (units unknown) (unknown) (unknown) (no date) (unknown) (unknown) COVID19 -Nasal RAPID Stat (units unknown) (unknown) (unknown) (no date) (unknown) (unknown) Calcium 10.0 (8.4-10.2) mg/dL (units unknown) (unknown) (unknown) (no date) (unknown) (unknown) Carbon Dioxide 33 H (22-32) mmol/L (units unknown) (unknown) (unknown) (no date) (unknown) (unknown) Chief Complaint: Chest Pain (units unknown) (unknown) (unknown) (no date) (unknown) (unknown) Chloride 95 L (98-107) mmol/L (units unknown) (unknown) (unknown) (no date) (unknown) (unknown) Complete Blood Count AUTO DIFF Stat (units unknown) (unknown) (unknown) (no date) (unknown) (unknown) Comprehensive Metabolic Panel Stat (units unknown) (unknown) (unknown) (no date) (unknown) (unknown) Course (units unknown) (unknown) (unknown) (no date) (unknown) (unknown) Creatinine 1.06 H (0.52-1.04) mg/dL (units unknown) (unknown) (unknown) (no date) (unknown) (unknown) : 1935 Acct:[id number] (units unknown) (unknown) (unknown) (no date) (unknown) (unknown) Date of Service: 02/09/23 (units unknown) (unknown) (unknown) (no date) (unknown) (unknown) Departure (units unknown) (unknown) (unknown) (no date) (unknown) (unknown) Discharge Plan (units unknown) (unknown) (unknown) (no date) (unknown) (unknown) Discontinued Medications (units unknown) (unknown) (unknown) (no date) (unknown) (unknown) ED Orders (units unknown) (unknown) (unknown) (no date) (unknown) (unknown) EKG-12 Lead Stat (units unknown) (unknown) (unknown) (no date) (unknown) (unknown) ER Physician: Glo Vela D.O. (units unknown) (unknown) (unknown) (no date) (unknown) (unknown) Elevated TSH (units unknown) (unknown) (unknown) (no date) (unknown) (unknown) Emergency Report (units unknown) (unknown) (unknown) (no date) (unknown) (unknown) Eos # (Auto) 100 (0-450) /uL (units unknown) (unknown) (unknown) (no date) (unknown) (unknown) Eos % (Auto) 0.9 L (2-4) % (units unknown) (unknown) (unknown) (no date) (unknown) (unknown) Estimated GFR 51 L (>60) mL/min (units unknown) (unknown) (unknown) (no date) (unknown) (unknown) Exam (units unknown) (unknown) (unknown) (no date) (unknown) (unknown) Family History (units unknown) (unknown) (unknown) (no date) (unknown) (unknown) Father Lung cancer (units unknown) (unknown) (unknown) (no date) (unknown) (unknown) Flonase 50 mcg (units unknown) (unknown) (unknown) (no date) (unknown) (unknown) Flonase PRN Dry Nasal Passages 07/24/22 (units unknown) (unknown) (unknown) (no date) (unknown) (unknown) General (units unknown) (unknown) (unknown) (no date) (unknown) (unknown) Globulin 3.2 (1.7-4.1) g/dL (units unknown) (unknown) (unknown) (no date) (unknown) (unknown) Glucose 167 H (80-110) mg/dL (units unknown) (unknown) (unknown) (no date) (unknown) (unknown) H/O hysterectomy with oophorectomy (units unknown) (unknown) (unknown) (no date) (unknown) (unknown) H/O three vessel coronary artery bypass (units unknown) (unknown) (unknown) (no date) (unknown) (unknown) HPI - Chest Pain (units unknown) (unknown) (unknown) (no date) (unknown) (unknown) HTN (hypertension) (units unknown) (unknown) (unknown) (no date) (unknown) (unknown) Hct 41.3 (36-46) % (units unknown) (unknown) (unknown) (no date) (unknown) (unknown) Hgb 13.8 (12.0-16.0) g/dL (units unknown) (unknown) (unknown) (no date) (unknown) (unknown) Home Medications (units unknown) (unknown) (unknown) (no date) (unknown) (unknown) Hx of heart artery stent (units unknown) (unknown) (unknown) (no date) (unknown) (unknown) Hyperlipidemia (units unknown) (unknown) (unknown) (no date) (unknown) (unknown) INHALATION PRN (Reason: Shortness Of Breath Or Wheezing) (units unknown) (unknown) (unknown) (no date) (unknown) (unknown) INR 1.1 (0.9-1.3) (units unknown) (unknown) (unknown) (no date) (unknown) (unknown) Initial Vital Signs (units unknown) (unknown) (unknown) (no date) (unknown) (unknown) Initial Vital Signs: (units unknown) (unknown) (unknown) (no date) (unknown) (unknown) [address] [address] (units unknown) (unknown) (unknown) (no date) (unknown) (unknown) Lab Data (units unknown) (unknown) (unknown) (no date) (unknown) (unknown) Lab Results (units unknown) (unknown) (unknown) (no date) (unknown) (unknown) Labs: (units unknown) (unknown) (unknown) (no date) (unknown) (unknown) Limitations: no limitations (units unknown) (unknown) (unknown) (no date) (unknown) (unknown) Lipase 45 (23-300) U/L (units unknown) (unknown) (unknown) (no date) (unknown) (unknown) Lipase Stat (units unknown) (unknown) (unknown) (no date) (unknown) (unknown) Lymph # (Auto) 1200 (9212-5651) /uL (units unknown) (unknown) (unknown) (no date) (unknown) (unknown) Lymph % (Auto) 9.2 L (25-40) % (units unknown) (unknown) (unknown) (no date) (unknown) (unknown) MCH 28.7 (26-34) PG (units unknown) (unknown) (unknown) (no date) (unknown) (unknown) MCHC 33.6 (30-36) % (units unknown) (unknown) (unknown) (no date) (unknown) (unknown) MCV 85.4 (80-100) fL (units unknown) (unknown) (unknown) (no date) (unknown) (unknown) MDM - Chest Pain (units unknown) (unknown) (unknown) (no date) (unknown) (unknown) Magnesium 1.9 (1.6-2.3) mg/dL (units unknown) (unknown) (unknown) (no date) (unknown) (unknown) Magnesium Stat (units unknown) (unknown) (unknown) (no date) (unknown) (unknown) Medical History (units unknown) (unknown) (unknown) (no date) (unknown) (unknown) Medication Instructions Recorded Confirmed (units unknown) (unknown) (unknown) (no date) (unknown) (unknown) Mode of arrival: Ambulatory (units unknown) (unknown) (unknown) (no date) (unknown) (unknown) [place] # (Auto) 700 (0-900) /uL (units unknown) (unknown) (unknown) (no date) (unknown) (unknown) [place] % (Auto) 5.1 (3-14) % (units unknown) (unknown) (unknown) (no date) (unknown) (unknown) Mother COPD (chronic obstructive pulmonary disease) (units unknown) (unknown) (unknown) (no date) (unknown) (unknown) Neut # (Auto) 79480 H (0536-1795) /uL (units unknown) (unknown) (unknown) (no date) (unknown) (unknown) Neut % (Auto) 84.4 H (50-75) % (units unknown) (unknown) (unknown) (no date) (unknown) (unknown) No Action (units unknown) (unknown) (unknown) (no date) (unknown) (unknown) Ordered: (units unknown) (unknown) (unknown) (no date) (unknown) (unknown) Orders (units unknown) (unknown) (unknown) (no date) (unknown) (unknown) Oxygen Delivery Method Room Air 02/09/23 18:15 (units unknown) (unknown) (unknown) (no date) (unknown) (unknown) Oxygen Delivery Method Room Air (units unknown) (unknown) (unknown) (no date) (unknown) (unknown) PRN (Reason: Dry Nasal Passages) (units unknown) (unknown) (unknown) (no date) (unknown) (unknown) PT 12.8 H (10.1-12.7) SECONDS (units unknown) (unknown) (unknown) (no date) (unknown) (unknown) PTT Partial Thromboplastin Jorge Luis Stat (units unknown) (unknown) (unknown) (no date) (unknown) (unknown) Pain (units unknown) (unknown) (unknown) (no date) (unknown) (unknown) Patient Comments: (units unknown) (unknown) (unknown) (no date) (unknown) (unknown) Patient History (units unknown) (unknown) (unknown) (no date) (unknown) (unknown) Patient: Roselyn Mejia MR#: [id number] (units unknown) (unknown) (unknown) (no date) (unknown) (unknown) Plt Count 244 (150-400) X103/uL (units unknown) (unknown) (unknown) (no date) (unknown) (unknown) Potassium 4.0 (3.4-5.1) mmol/L (units unknown) (unknown) (unknown) (no date) (unknown) (unknown) Prescriptions: (units unknown) (unknown) (unknown) (no date) (unknown) (unknown) Prothrombin Time INR Stat (units unknown) (unknown) (unknown) (no date) (unknown) (unknown) Pulse Oximetry 96 02/09/23 18:15 (units unknown) (unknown) (unknown) (no date) (unknown) (unknown) Pulse Oximetry 96 (units unknown) (unknown) (unknown) (no date) (unknown) (unknown) Pulse Rate 84 02/09/23 18:15 (units unknown) (unknown) (unknown) (no date) (unknown) (unknown) Pulse Rate 84 (units unknown) (unknown) (unknown) (no date) (unknown) (unknown) RBC 4.83 (4.0-5.2) X106/uL (units unknown) (unknown) (unknown) (no date) (unknown) (unknown) RDW 16.3 H (11.6-14.8) % (units unknown) (unknown) (unknown) (no date) (unknown) (unknown) ROS Unobtainable: All systems reviewed + are unremarkable except as noted in HPI (units unknown) (unknown) (unknown) (no date) (unknown) (unknown) Referrals: (units unknown) (unknown) (unknown) (no date) (unknown) (unknown) Related Data (units unknown) (unknown) (unknown) (no date) (unknown) (unknown) Respiratory Rate 20 02/09/23 18:15 (units unknown) (unknown) (unknown) (no date) (unknown) (unknown) Respiratory Rate 20 (units unknown) (unknown) (unknown) (no date) (unknown) (unknown) Review of Systems (units unknown) (unknown) (unknown) (no date) (unknown) (unknown) Robitussin DM To Go 10 ml PO PRN Cough 07/24/22 (units unknown) (unknown) (unknown) (no date) (unknown) (unknown) Robitussin DM To Go (units unknown) (unknown) (unknown) (no date) (unknown) (unknown) Rx Instructions: (units unknown) (unknown) (unknown) (no date) (unknown) (unknown) Signed By: (units unknown) (unknown) (unknown) (no date) (unknown) (unknown) Skin (units unknown) (unknown) (unknown) (no date) (unknown) (unknown) Smoking Status: Former smoker (units unknown) (unknown) (unknown) (no date) (unknown) (unknown) Social History (units unknown) (unknown) (unknown) (no date) (unknown) (unknown) Sodium 135 L (137-145) mmol/L (units unknown) (unknown) (unknown) (no date) (unknown) (unknown) Source: patient (units unknown) (unknown) (unknown) (no date) (unknown) (unknown) Stated Complaint: has COPD, sent [facility], heaviness in chest,'enzyme mary alice (units unknown) (unknown) (unknown) (no date) (unknown) (unknown) Status post cholecystectomy (units unknown) (unknown) (unknown) (no date) (unknown) (unknown) Stop: 02/09/23 18:22 (units unknown) (unknown) (unknown) (no date) (unknown) (unknown) Substance Use Type: does not use (units unknown) (unknown) (unknown) (no date) (unknown) (unknown) Sulfa (Sulfonamide Allergy Intermediate rash Verified 02/09/23 18:21 (units unknown) (unknown) (unknown) (no date) (unknown) (unknown) Surgical History (units unknown) (unknown) (unknown) (no date) (unknown) (unknown) TAKE 1 CAPSULE BY MOUTH ONCE DAILY (units unknown) (unknown) (unknown) (no date) (unknown) (unknown) TAKE 1 TABLET BY MOUTH ONCE DAILY IN THE MORNING (units unknown) (unknown) (unknown) (no date) (unknown) (unknown) TAKE 1 TABLET BY MOUTH ONCE DAILY (units unknown) (unknown) (unknown) (no date) (unknown) (unknown) Temperature 98.1 F 02/09/23 18:15 (units unknown) (unknown) (unknown) (no date) (unknown) (unknown) Temperature 98.1 F (units unknown) (unknown) (unknown) (no date) (unknown) (unknown) Time Seen by Provider: 02/09/23 19:10 (units unknown) (unknown) (unknown) (no date) (unknown) (unknown) Total Bilirubin 2.7 H (0.2-1.3) mg/dL (units unknown) (unknown) (unknown) (no date) (unknown) (unknown) Total Creatine Kinase 30 (30-135) U/L (units unknown) (unknown) (unknown) (no date) (unknown) (unknown) Total Protein 7.3 (6.3-8.2) g/dL (units unknown) (unknown) (unknown) (no date) (unknown) (unknown) Troponin + CK Cardiac Panel Stat (units unknown) (unknown) (unknown) (no date) (unknown) (unknown) Troponin I 0.017 (0.01-0.034) ng/mL (units unknown) (unknown) (unknown) (no date) (unknown) (unknown) Unstable angina (units unknown) (unknown) (unknown) (no date) (unknown) (unknown) Valvular heart disease (units unknown) (unknown) (unknown) (no date) (unknown) (unknown) Vital Signs - 8 hr (units unknown) (unknown) (unknown) (no date) (unknown) (unknown) Vital Signs (units unknown) (unknown) (unknown) (no date) (unknown) (unknown) Vital signs: (units unknown) (unknown) (unknown) (no date) (unknown) (unknown) WBC 12.8 H (4.5-11.0) X103/uL (units unknown) (unknown) (unknown) (no date) (unknown) (unknown) Katy Salazar, WELL TESTING OPERATOR [Primary Care Provider] (units unknown) (unknown) (unknown) (no date) (unknown) (unknown) XR chest 1V Stat (units unknown) (unknown) (unknown) (no date) (unknown) (unknown) [Embedded Image Not Available] (units unknown) (unknown) (unknown) (no date) (unknown) (unknown) [From Bactrim] (units unknown) (unknown) (unknown) (no date) (unknown) (unknown) [From Trilipix] Upset (units unknown) (unknown) (unknown) (no date) (unknown) (unknown) acarbose Allergy Intermediate Abdominal Verified 02/09/23 18:21 (units unknown) (unknown) (unknown) (no date) (unknown) (unknown) albuterol 90 mcg/actuation Aerosol (units unknown) (unknown) (unknown) (no date) (unknown) (unknown) albuterol 90 mcg/actuation aerosol 90 mcg inhalation PRN Shortness Of 07/24/22 (units unknown) (unknown) (unknown) (no date) (unknown) (unknown) alcohol intake frequency: 0-2 drinks per day (units unknown) (unknown) (unknown) (no date) (unknown) (unknown) alcohol intake: never (units unknown) (unknown) (unknown) (no date) (unknown) (unknown) amlodipine Allergy Intermediate Verified 02/09/23 18:21 (units unknown) (unknown) (unknown) (no date) (unknown) (unknown) and below (units unknown) (unknown) (unknown) (no date) (unknown) (unknown) aspirin 81 MG tablet,delayed release (DR/EC) (units unknown) (unknown) (unknown) (no date) (unknown) (unknown) aspirin 81 mg tablet,delayed 81 mg PO QDAY ##0 09/14/17 07/24/22 (units unknown) (unknown) (unknown) (no date) (unknown) (unknown) atorvastatin 20 mg tablet (Lipitor) 40 mg PO QPM 07/08/22 07/24/22 (units unknown) (unknown) (unknown) (no date) (unknown) (unknown) atorvastatin [Lipitor] 20 mg tablet (units unknown) (unknown) (unknown) (no date) (unknown) (unknown) budesonide [From Symbicort] Allergy Mild Anxiety Verified 02/09/23 18:21 (units unknown) (unknown) (unknown) (no date) (unknown) (unknown) capsule,extended release 24 hr (units unknown) (unknown) (unknown) (no date) (unknown) (unknown) carvedilol Allergy Mild Rash Verified 02/09/23 18:21 (units unknown) (unknown) (unknown) (no date) (unknown) (unknown) chlorthalidone Allergy Intermediate Redness of Verified 02/09/23 18:21 (units unknown) (unknown) (unknown) (no date) (unknown) (unknown) choline fenofibrate Allergy Mild Gastrointestinal Verified 02/09/23 18:21 (units unknown) (unknown) (unknown) (no date) (unknown) (unknown) clopidogrel 75 mg tablet 75 mg PO QA 07/24/22 07/24/22 (units unknown) (unknown) (unknown) (no date) (unknown) (unknown) clopidogrel 75 mg tablet (units unknown) (unknown) (unknown) (no date) (unknown) (unknown) cyclobenzaprine 10 mg Tablet (units unknown) (unknown) (unknown) (no date) (unknown) (unknown) cyclobenzaprine 10 mg tablet 10 mg PO TID PRN Muscle Spasm 07/24/22 07/24/22 (units unknown) (unknown) (unknown) (no date) (unknown) (unknown) diltiazem HCl 120 mg 120 mg PO QAM 07/08/22 07/24/22 (units unknown) (unknown) (unknown) (no date) (unknown) (unknown) diltiazem HCl [Cartia XT] 120 mg capsule,extended release 24hr (units unknown) (unknown) (unknown) (no date) (unknown) (unknown) doxazosin [From Cardura] Allergy Intermediate Rash Verified 02/09/23 18:21 (units unknown) (unknown) (unknown) (no date) (unknown) (unknown) doxycycline Allergy Intermediate Rash Verified 02/09/23 18:21 (units unknown) (unknown) (unknown) (no date) (unknown) (unknown) formoterol [From Symbicort] Allergy Mild Anxiety Verified 02/09/23 18:21 (units unknown) (unknown) (unknown) (no date) (unknown) (unknown) furosemide 40 mg tablet 40 mg PO QAM 07/08/22 07/08/22 (units unknown) (unknown) (unknown) (no date) (unknown) (unknown) furosemide 40 mg tablet (units unknown) (unknown) (unknown) (no date) (unknown) (unknown) gemfibrozil Allergy Intermediate Rash Verified 02/09/23 18:21 (units unknown) (unknown) (unknown) (no date) (unknown) (unknown) household members: family and children (units unknown) (unknown) (unknown) (no date) (unknown) (unknown) inhaler Breath (units unknown) (unknown) (unknown) (no date) (unknown) (unknown) ipratropium 0.5 mg-albuterol 3 mg ml inhalation PRN Shortness Of 07/24/22 (units unknown) (unknown) (unknown) (no date) (unknown) (unknown) ipratropium-albutero l 0.5 mg-3 mg(2.5 mg base)/3 mL solution for nebulization (units unknown) (unknown) (unknown) (no date) (unknown) (unknown) isosorbide mononitrate 120 mg 120 mg PO QAM 07/08/22 07/24/22 (units unknown) (unknown) (unknown) (no date) (unknown) (unknown) isosorbide mononitrate 120 mg tablet extended release 24 hr (units unknown) (unknown) (unknown) (no date) (unknown) (unknown) levofloxacin Allergy Intermediate Rash Verified 02/09/23 18:21 (units unknown) (unknown) (unknown) (no date) (unknown) (unknown) levothyroxine 88 mcg tablet 88 mcg PO QAM 07/08/22 07/24/22 (units unknown) (unknown) (unknown) (no date) (unknown) (unknown) levothyroxine 88 mcg tablet (units unknown) (unknown) (unknown) (no date) (unknown) (unknown) lisinopril 40 mg tablet 20 mg PO QAM 07/08/22 07/24/22 (units unknown) (unknown) (unknown) (no date) (unknown) (unknown) lisinopril 40 mg tablet (units unknown) (unknown) (unknown) (no date) (unknown) (unknown) losartan Allergy Intermediate Rash Verified 02/09/23 18:21 (units unknown) (unknown) (unknown) (no date) (unknown) (unknown) metoprolol AdvReac Intermediate Verified 02/09/23 18:21 (units unknown) (unknown) (unknown) (no date) (unknown) (unknown) metoprolol succinate 25 mg 25 mg PO DAILY 07/24/22 07/24/22 (units unknown) (unknown) (unknown) (no date) (unknown) (unknown) metoprolol succinate 25 mg tablet extended release 24 hr (units unknown) (unknown) (unknown) (no date) (unknown) (unknown) [facility] Allergy Intermediate Difficulty Verified 02/09/23 (units unknown) (unknown) (unknown) (no date) (unknown) (unknown) morning (units unknown) (unknown) (unknown) (no date) (unknown) (unknown) multivitamin 1 tab PO DAILY 09/10/18 07/24/22 (units unknown) (unknown) (unknown) (no date) (unknown) (unknown) multivitamin Tablet,Chewable (units unknown) (unknown) (unknown) (no date) (unknown) (unknown) nifedipine Allergy Intermediate Chills Verified 02/09/23 18:21 (units unknown) (unknown) (unknown) (no date) (unknown) (unknown) nitroglycerin 0.4 mg sublingual 0.4 mg sublingual Q5-15M PRN Chest 09/10/18 (units unknown) (unknown) (unknown) (no date) (unknown) (unknown) nitroglycerin [Nitrostat] 0.4 mg Tablet, Sublingual (units unknown) (unknown) (unknown) (no date) (unknown) (unknown) omega 3-lqq-llb-fish oil 1,000 mg 1,000 mg PO DAILY 09/10/18 07/24/22 (units unknown) (unknown) (unknown) (no date) (unknown) (unknown) omega 0-rla-bay-fish oil [Fish Oil] 1,000 mg (120 mg-180 mg) Capsule (units unknown) (unknown) (unknown) (no date) (unknown) (unknown) patient states she forgets to take (units unknown) (unknown) (unknown) (no date) (unknown) (unknown) pt has not started, it is at the pharmacy for her to picker (units unknown) (unknown) (unknown) (no date) (unknown) (unknown) pt instructed to stop medications. d/c 07/14/22 (units unknown) (unknown) (unknown) (no date) (unknown) (unknown) release (units unknown) (unknown) (unknown) (no date) (unknown) (unknown) soln (units unknown) (unknown) (unknown) (no date) (unknown) (unknown) sulfamethoxazole Allergy Intermediate Rash Verified 02/09/23 18:21 (units unknown) (unknown) (unknown) (no date) (unknown) (unknown) tablet (Nitrostat) Pain (units unknown) (unknown) (unknown) (no date) (unknown) (unknown) tablet,extended release 24 hr (units unknown) (unknown) (unknown) (no date) (unknown) (unknown) tobacco type: cigarettes (units unknown) (unknown) (unknown) (no date) (unknown) (unknown) torsemide 20 mg Tablet (units unknown) (unknown) (unknown) (no date) (unknown) (unknown) torsemide 20 mg tablet 20 mg PO DAILY 07/24/22 07/24/22 (units unknown) (unknown) (unknown) (no date) (unknown) (unknown) trimethoprim [From Bactrim] Allergy Intermediate Rash Verified 02/09/23 18:21 (units unknown) (unknown) (unknown) (no date) (unknown) (unknown) vitamin E 268 mg (400 unit) capsule 400 unit PO DAILY 09/10/18 07/24/22 (units unknown) (unknown) (unknown) (no date) (unknown) (unknown) vitamin E 400 unit Capsule (units unknown) (unknown) Result panel [id number] (unknown) (no date) (unknown) (unknown) (no value) (units unknown) (unknown) (unknown) (no date) (unknown) (unknown) (120 mg-180 mg) capsule (Fish Oil) (units unknown) (unknown) (unknown) (no date) (unknown) (unknown) (2.5 mg base)/3 mL nebulization Breath Or Wheezing (units unknown) (unknown) (unknown) (no date) (unknown) (unknown) (Cartia XT) (units unknown) (unknown) (unknown) (no date) (unknown) (unknown) 0.4 mg SUBLINGUAL Q5-15M PRN (Reason: Chest Pain) (units unknown) (unknown) (unknown) (no date) (unknown) (unknown) [id number] (units unknown) (unknown) (unknown) (no date) (unknown) (unknown) 02/09/23 02/09/23 02/09/23 Range/Units (units unknown) (unknown) (unknown) (no date) (unknown) (unknown) 02/09/23 18:21 (units unknown) (unknown) (unknown) (no date) (unknown) (unknown) 02/09/23 18:30 (units unknown) (unknown) (unknown) (no date) (unknown) (unknown) 02/09/23 (units unknown) (unknown) (unknown) (no date) (unknown) (unknown) 07/24/22 (units unknown) (unknown) (unknown) (no date) (unknown) (unknown) 1 tab PO DAILY (units unknown) (unknown) (unknown) (no date) (unknown) (unknown) 1,000 mg PO DAILY (units unknown) (unknown) (unknown) (no date) (unknown) (unknown) 10 mg PO TID PRN (Reason: Muscle Spasm) (units unknown) (unknown) (unknown) (no date) (unknown) (unknown) 10 ml PO PRN (Reason: Cough) (units unknown) (unknown) (unknown) (no date) (unknown) (unknown) 10-100mg/5ml liquid. take 10ml by mouth every 4 hrs as needed for cough (units unknown) (unknown) (unknown) (no date) (unknown) (unknown) 120 mg PO QAM (units unknown) (unknown) (unknown) (no date) (unknown) (unknown) 18:15 (units unknown) (unknown) (unknown) (no date) (unknown) (unknown) 18:21 (units unknown) (unknown) (unknown) (no date) (unknown) (unknown) 18:30 18:30 18:30 (units unknown) (unknown) (unknown) (no date) (unknown) (unknown) 20 mg PO DAILY (units unknown) (unknown) (unknown) (no date) (unknown) (unknown) 20 mg PO QAM (units unknown) (unknown) (unknown) (no date) (unknown) (unknown) 25 mg PO DAILY (units unknown) (unknown) (unknown) (no date) (unknown) (unknown) 40 mg PO QAM (units unknown) (unknown) (unknown) (no date) (unknown) (unknown) 40 mg PO QPM (units unknown) (unknown) (unknown) (no date) (unknown) (unknown) 400 unit PO DAILY (units unknown) (unknown) (unknown) (no date) (unknown) (unknown) 75 mg PO QAM (units unknown) (unknown) (unknown) (no date) (unknown) (unknown) 81 mg PO QDAY Qty: 0 (units unknown) (unknown) (unknown) (no date) (unknown) (unknown) 88 mcg PO QAM (units unknown) (unknown) (unknown) (no date) (unknown) (unknown) 90 mcg INHALATION PRN (Reason: Shortness Of Breath) (units unknown) (unknown) (unknown) (no date) (unknown) (unknown) ALT 22 (<35) IU/L (units unknown) (unknown) (unknown) (no date) (unknown) (unknown) APTT 30 (26-36) SECONDS (units unknown) (unknown) (unknown) (no date) (unknown) (unknown) AST 28 (14-36) IU/L (units unknown) (unknown) (unknown) (no date) (unknown) (unknown) Age/Sex: 87 / F (units unknown) (unknown) (unknown) (no date) (unknown) (unknown) Albumin 4.1 (3.5-5.0) g/dL (units unknown) (unknown) (unknown) (no date) (unknown) (unknown) Albumin/Globulin Ratio 1.3 (1.0-2.8) (units unknown) (unknown) (unknown) (no date) (unknown) (unknown) Alkaline Phosphatase 76 (38-126) U/L (units unknown) (unknown) (unknown) (no date) (unknown) (unknown) Allergies (units unknown) (unknown) (unknown) (no date) (unknown) (unknown) Allergy/AdvReac Type Severity Reaction Status Date / Time (units unknown) (unknown) (unknown) (no date) (unknown) (unknown) Aneurysm of infrarenal abdominal aorta (units unknown) (unknown) (unknown) (no date) (unknown) (unknown) Antibiotics) (units unknown) (unknown) (unknown) (no date) (unknown) (unknown) Aspirin (Aspirin 81 Mg Chew Tab) 324 mg PO NOW ONE (units unknown) (unknown) (unknown) (no date) (unknown) (unknown) BUN 26 H (7-17) mg/dL (units unknown) (unknown) (unknown) (no date) (unknown) (unknown) BUN/Creatinine Ratio 24.5 H (6-22) (units unknown) (unknown) (unknown) (no date) (unknown) (unknown) Baso # (Auto) 100 (0-100) /uL (units unknown) (unknown) (unknown) (no date) (unknown) (unknown) Baso % (Auto) 0.4 (0-2) % (units unknown) (unknown) (unknown) (no date) (unknown) (unknown) Bilateral carpal tunnel syndrome (units unknown) (unknown) (unknown) (no date) (unknown) (unknown) Blood Pressure 141/61 H 02/09/23 18:15 (units unknown) (unknown) (unknown) (no date) (unknown) (unknown) Blood Pressure 141/61 H (units unknown) (unknown) (unknown) (no date) (unknown) (unknown) Breathing (units unknown) (unknown) (unknown) (no date) (unknown) (unknown) CAD (coronary artery disease) (units unknown) (unknown) (unknown) (no date) (unknown) (unknown) CK-MB (CK-2) Rel Index TNP (units unknown) (unknown) (unknown) (no date) (unknown) (unknown) CK-MB (CK-2) TNP (units unknown) (unknown) (unknown) (no date) (unknown) (unknown) COPD (chronic obstructive pulmonary disease) with emphysema (units unknown) (unknown) (unknown) (no date) (unknown) (unknown) COVID19 -Nasal RAPID Stat (units unknown) (unknown) (unknown) (no date) (unknown) (unknown) Calcium 10.0 (8.4-10.2) mg/dL (units unknown) (unknown) (unknown) (no date) (unknown) (unknown) Carbon Dioxide 33 H (22-32) mmol/L (units unknown) (unknown) (unknown) (no date) (unknown) (unknown) Chief Complaint: Chest Pain (units unknown) (unknown) (unknown) (no date) (unknown) (unknown) Chloride 95 L (98-107) mmol/L (units unknown) (unknown) (unknown) (no date) (unknown) (unknown) Complete Blood Count AUTO DIFF Stat (units unknown) (unknown) (unknown) (no date) (unknown) (unknown) Comprehensive Metabolic Panel Stat (units unknown) (unknown) (unknown) (no date) (unknown) (unknown) Course (units unknown) (unknown) (unknown) (no date) (unknown) (unknown) Creatinine 1.06 H (0.52-1.04) mg/dL (units unknown) (unknown) (unknown) (no date) (unknown) (unknown) : 1935 Acct:[id number] (units unknown) (unknown) (unknown) (no date) (unknown) (unknown) Date of Service: 02/09/23 (units unknown) (unknown) (unknown) (no date) (unknown) (unknown) Departure (units unknown) (unknown) (unknown) (no date) (unknown) (unknown) Discharge Plan (units unknown) (unknown) (unknown) (no date) (unknown) (unknown) Discontinued Medications (units unknown) (unknown) (unknown) (no date) (unknown) (unknown) ED Orders (units unknown) (unknown) (unknown) (no date) (unknown) (unknown) EKG-12 Lead Stat (units unknown) (unknown) (unknown) (no date) (unknown) (unknown) ER Physician: Glo Vela D.O. (units unknown) (unknown) (unknown) (no date) (unknown) (unknown) Elevated TSH (units unknown) (unknown) (unknown) (no date) (unknown) (unknown) Emergency Report (units unknown) (unknown) (unknown) (no date) (unknown) (unknown) Eos # (Auto) 100 (0-450) /uL (units unknown) (unknown) (unknown) (no date) (unknown) (unknown) Eos % (Auto) 0.9 L (2-4) % (units unknown) (unknown) (unknown) (no date) (unknown) (unknown) Estimated GFR 51 L (>60) mL/min (units unknown) (unknown) (unknown) (no date) (unknown) (unknown) Exam (units unknown) (unknown) (unknown) (no date) (unknown) (unknown) Family History (units unknown) (unknown) (unknown) (no date) (unknown) (unknown) Father Lung cancer (units unknown) (unknown) (unknown) (no date) (unknown) (unknown) Flonase 50 mcg (units unknown) (unknown) (unknown) (no date) (unknown) (unknown) Flonase PRN Dry Nasal Passages 07/24/22 (units unknown) (unknown) (unknown) (no date) (unknown) (unknown) General (units unknown) (unknown) (unknown) (no date) (unknown) (unknown) Globulin 3.2 (1.7-4.1) g/dL (units unknown) (unknown) (unknown) (no date) (unknown) (unknown) Glucose 167 H (80-110) mg/dL (units unknown) (unknown) (unknown) (no date) (unknown) (unknown) H/O hysterectomy with oophorectomy (units unknown) (unknown) (unknown) (no date) (unknown) (unknown) H/O three vessel coronary artery bypass (units unknown) (unknown) (unknown) (no date) (unknown) (unknown) HPI - Chest Pain (units unknown) (unknown) (unknown) (no date) (unknown) (unknown) HTN (hypertension) (units unknown) (unknown) (unknown) (no date) (unknown) (unknown) Hct 41.3 (36-46) % (units unknown) (unknown) (unknown) (no date) (unknown) (unknown) Hgb 13.8 (12.0-16.0) g/dL (units unknown) (unknown) (unknown) (no date) (unknown) (unknown) Home Medications (units unknown) (unknown) (unknown) (no date) (unknown) (unknown) Hx of heart artery stent (units unknown) (unknown) (unknown) (no date) (unknown) (unknown) Hyperlipidemia (units unknown) (unknown) (unknown) (no date) (unknown) (unknown) INHALATION PRN (Reason: Shortness Of Breath Or Wheezing) (units unknown) (unknown) (unknown) (no date) (unknown) (unknown) INR 1.1 (0.9-1.3) (units unknown) (unknown) (unknown) (no date) (unknown) (unknown) Initial Vital Signs (units unknown) (unknown) (unknown) (no date) (unknown) (unknown) Initial Vital Signs: (units unknown) (unknown) (unknown) (no date) (unknown) (unknown) [address] [address] (units unknown) (unknown) (unknown) (no date) (unknown) (unknown) Lab Data (units unknown) (unknown) (unknown) (no date) (unknown) (unknown) Lab Results (units unknown) (unknown) (unknown) (no date) (unknown) (unknown) Labs: (units unknown) (unknown) (unknown) (no date) (unknown) (unknown) Limitations: no limitations (units unknown) (unknown) (unknown) (no date) (unknown) (unknown) Lipase 45 (23-300) U/L (units unknown) (unknown) (unknown) (no date) (unknown) (unknown) Lipase Stat (units unknown) (unknown) (unknown) (no date) (unknown) (unknown) Lymph # (Auto) 1200 (5499-2024) /uL (units unknown) (unknown) (unknown) (no date) (unknown) (unknown) Lymph % (Auto) 9.2 L (25-40) % (units unknown) (unknown) (unknown) (no date) (unknown) (unknown) MCH 28.7 (26-34) PG (units unknown) (unknown) (unknown) (no date) (unknown) (unknown) MCHC 33.6 (30-36) % (units unknown) (unknown) (unknown) (no date) (unknown) (unknown) MCV 85.4 (80-100) fL (units unknown) (unknown) (unknown) (no date) (unknown) (unknown) MDM - Chest Pain (units unknown) (unknown) (unknown) (no date) (unknown) (unknown) Magnesium 1.9 (1.6-2.3) mg/dL (units unknown) (unknown) (unknown) (no date) (unknown) (unknown) Magnesium Stat (units unknown) (unknown) (unknown) (no date) (unknown) (unknown) Medical History (units unknown) (unknown) (unknown) (no date) (unknown) (unknown) Medication Instructions Recorded Confirmed (units unknown) (unknown) (unknown) (no date) (unknown) (unknown) Mode of arrival: Ambulatory (units unknown) (unknown) (unknown) (no date) (unknown) (unknown) [place] # (Auto) 700 (0-900) /uL (units unknown) (unknown) (unknown) (no date) (unknown) (unknown) [place] % (Auto) 5.1 (3-14) % (units unknown) (unknown) (unknown) (no date) (unknown) (unknown) Mother COPD (chronic obstructive pulmonary disease) (units unknown) (unknown) (unknown) (no date) (unknown) (unknown) Neut # (Auto) 06255 H (6627-1157) /uL (units unknown) (unknown) (unknown) (no date) (unknown) (unknown) Neut % (Auto) 84.4 H (50-75) % (units unknown) (unknown) (unknown) (no date) (unknown) (unknown) No Action (units unknown) (unknown) (unknown) (no date) (unknown) (unknown) Ordered: (units unknown) (unknown) (unknown) (no date) (unknown) (unknown) Orders (units unknown) (unknown) (unknown) (no date) (unknown) (unknown) Oxygen Delivery Method Room Air 02/09/23 18:15 (units unknown) (unknown) (unknown) (no date) (unknown) (unknown) Oxygen Delivery Method Room Air (units unknown) (unknown) (unknown) (no date) (unknown) (unknown) PRN (Reason: Dry Nasal Passages) (units unknown) (unknown) (unknown) (no date) (unknown) (unknown) PT 12.8 H (10.1-12.7) SECONDS (units unknown) (unknown) (unknown) (no date) (unknown) (unknown) PTT Partial Thromboplastin Jorge Luis Stat (units unknown) (unknown) (unknown) (no date) (unknown) (unknown) Pain (units unknown) (unknown) (unknown) (no date) (unknown) (unknown) Patient Comments: (units unknown) (unknown) (unknown) (no date) (unknown) (unknown) Patient History (units unknown) (unknown) (unknown) (no date) (unknown) (unknown) Patient: Roselyn Mejia MR#: [id number] (units unknown) (unknown) (unknown) (no date) (unknown) (unknown) Plt Count 244 (150-400) X103/uL (units unknown) (unknown) (unknown) (no date) (unknown) (unknown) Potassium 4.0 (3.4-5.1) mmol/L (units unknown) (unknown) (unknown) (no date) (unknown) (unknown) Prescriptions: (units unknown) (unknown) (unknown) (no date) (unknown) (unknown) Prothrombin Time INR Stat (units unknown) (unknown) (unknown) (no date) (unknown) (unknown) Pulse Oximetry 96 02/09/23 18:15 (units unknown) (unknown) (unknown) (no date) (unknown) (unknown) Pulse Oximetry 96 (units unknown) (unknown) (unknown) (no date) (unknown) (unknown) Pulse Rate 84 02/09/23 18:15 (units unknown) (unknown) (unknown) (no date) (unknown) (unknown) Pulse Rate 84 (units unknown) (unknown) (unknown) (no date) (unknown) (unknown) RBC 4.83 (4.0-5.2) X106/uL (units unknown) (unknown) (unknown) (no date) (unknown) (unknown) RDW 16.3 H (11.6-14.8) % (units unknown) (unknown) (unknown) (no date) (unknown) (unknown) ROS Unobtainable: All systems reviewed + are unremarkable except as noted in HPI (units unknown) (unknown) (unknown) (no date) (unknown) (unknown) Referrals: (units unknown) (unknown) (unknown) (no date) (unknown) (unknown) Related Data (units unknown) (unknown) (unknown) (no date) (unknown) (unknown) Respiratory Rate 20 02/09/23 18:15 (units unknown) (unknown) (unknown) (no date) (unknown) (unknown) Respiratory Rate 20 (units unknown) (unknown) (unknown) (no date) (unknown) (unknown) Review of Systems (units unknown) (unknown) (unknown) (no date) (unknown) (unknown) Robitussin DM To Go 10 ml PO PRN Cough 07/24/22 (units unknown) (unknown) (unknown) (no date) (unknown) (unknown) Robitussin DM To Go (units unknown) (unknown) (unknown) (no date) (unknown) (unknown) Rx Instructions: (units unknown) (unknown) (unknown) (no date) (unknown) (unknown) Signed By: (units unknown) (unknown) (unknown) (no date) (unknown) (unknown) Skin (units unknown) (unknown) (unknown) (no date) (unknown) (unknown) Smoking Status: Former smoker (units unknown) (unknown) (unknown) (no date) (unknown) (unknown) Social History (units unknown) (unknown) (unknown) (no date) (unknown) (unknown) Sodium 135 L (137-145) mmol/L (units unknown) (unknown) (unknown) (no date) (unknown) (unknown) Source: patient (units unknown) (unknown) (unknown) (no date) (unknown) (unknown) Stated Complaint: has COPD, sent [facility], heaviness in chest,'enzyme mray alice (units unknown) (unknown) (unknown) (no date) (unknown) (unknown) Status post cholecystectomy (units unknown) (unknown) (unknown) (no date) (unknown) (unknown) Stop: 02/09/23 18:22 (units unknown) (unknown) (unknown) (no date) (unknown) (unknown) Substance Use Type: does not use (units unknown) (unknown) (unknown) (no date) (unknown) (unknown) Sulfa (Sulfonamide Allergy Intermediate rash Verified 02/09/23 18:21 (units unknown) (unknown) (unknown) (no date) (unknown) (unknown) Surgical History (units unknown) (unknown) (unknown) (no date) (unknown) (unknown) TAKE 1 CAPSULE BY MOUTH ONCE DAILY (units unknown) (unknown) (unknown) (no date) (unknown) (unknown) TAKE 1 TABLET BY MOUTH ONCE DAILY IN THE MORNING (units unknown) (unknown) (unknown) (no date) (unknown) (unknown) TAKE 1 TABLET BY MOUTH ONCE DAILY (units unknown) (unknown) (unknown) (no date) (unknown) (unknown) Temperature 98.1 F 02/09/23 18:15 (units unknown) (unknown) (unknown) (no date) (unknown) (unknown) Temperature 98.1 F (units unknown) (unknown) (unknown) (no date) (unknown) (unknown) Time Seen by Provider: 02/09/23 19:10 (units unknown) (unknown) (unknown) (no date) (unknown) (unknown) Total Bilirubin 2.7 H (0.2-1.3) mg/dL (units unknown) (unknown) (unknown) (no date) (unknown) (unknown) Total Creatine Kinase 30 (30-135) U/L (units unknown) (unknown) (unknown) (no date) (unknown) (unknown) Total Protein 7.3 (6.3-8.2) g/dL (units unknown) (unknown) (unknown) (no date) (unknown) (unknown) Troponin + CK Cardiac Panel Stat (units unknown) (unknown) (unknown) (no date) (unknown) (unknown) Troponin I 0.017 (0.01-0.034) ng/mL (units unknown) (unknown) (unknown) (no date) (unknown) (unknown) Unstable angina (units unknown) (unknown) (unknown) (no date) (unknown) (unknown) Valvular heart disease (units unknown) (unknown) (unknown) (no date) (unknown) (unknown) Vital Signs - 8 hr (units unknown) (unknown) (unknown) (no date) (unknown) (unknown) Vital Signs (units unknown) (unknown) (unknown) (no date) (unknown) (unknown) Vital signs: (units unknown) (unknown) (unknown) (no date) (unknown) (unknown) WBC 12.8 H (4.5-11.0) X103/uL (units unknown) (unknown) (unknown) (no date) (unknown) (unknown) Katy Salazar, BECKY [Primary Care Provider] (units unknown) (unknown) (unknown) (no date) (unknown) (unknown) XR chest 1V Stat (units unknown) (unknown) (unknown) (no date) (unknown) (unknown) [Embedded Image Not Available] (units unknown) (unknown) (unknown) (no date) (unknown) (unknown) [From Bactrim] (units unknown) (unknown) (unknown) (no date) (unknown) (unknown) [From Trilipix] Upset (units unknown) (unknown) (unknown) (no date) (unknown) (unknown) acarbose Allergy Intermediate Abdominal Verified 02/09/23 18:21 (units unknown) (unknown) (unknown) (no date) (unknown) (unknown) albuterol 90 mcg/actuation Aerosol (units unknown) (unknown) (unknown) (no date) (unknown) (unknown) albuterol 90 mcg/actuation aerosol 90 mcg inhalation PRN Shortness Of 07/24/22 (units unknown) (unknown) (unknown) (no date) (unknown) (unknown) alcohol intake frequency: 0-2 drinks per day (units unknown) (unknown) (unknown) (no date) (unknown) (unknown) alcohol intake: never (units unknown) (unknown) (unknown) (no date) (unknown) (unknown) amlodipine Allergy Intermediate Verified 02/09/23 18:21 (units unknown) (unknown) (unknown) (no date) (unknown) (unknown) and below (units unknown) (unknown) (unknown) (no date) (unknown) (unknown) aspirin 81 MG tablet,delayed release (DR/EC) (units unknown) (unknown) (unknown) (no date) (unknown) (unknown) aspirin 81 mg tablet,delayed 81 mg PO QDAY ##0 09/14/17 07/24/22 (units unknown) (unknown) (unknown) (no date) (unknown) (unknown) atorvastatin 20 mg tablet (Lipitor) 40 mg PO QPM 07/08/22 07/24/22 (units unknown) (unknown) (unknown) (no date) (unknown) (unknown) atorvastatin [Lipitor] 20 mg tablet (units unknown) (unknown) (unknown) (no date) (unknown) (unknown) budesonide [From Symbicort] Allergy Mild Anxiety Verified 02/09/23 18:21 (units unknown) (unknown) (unknown) (no date) (unknown) (unknown) capsule,extended release 24 hr (units unknown) (unknown) (unknown) (no date) (unknown) (unknown) carvedilol Allergy Mild Rash Verified 02/09/23 18:21 (units unknown) (unknown) (unknown) (no date) (unknown) (unknown) chlorthalidone Allergy Intermediate Redness of Verified 02/09/23 18:21 (units unknown) (unknown) (unknown) (no date) (unknown) (unknown) choline fenofibrate Allergy Mild Gastrointestinal Verified 02/09/23 18:21 (units unknown) (unknown) (unknown) (no date) (unknown) (unknown) clopidogrel 75 mg tablet 75 mg PO [facility] 07/24/22 07/24/22 (units unknown) (unknown) (unknown) (no date) (unknown) (unknown) clopidogrel 75 mg tablet (units unknown) (unknown) (unknown) (no date) (unknown) (unknown) cyclobenzaprine 10 mg Tablet (units unknown) (unknown) (unknown) (no date) (unknown) (unknown) cyclobenzaprine 10 mg tablet 10 mg PO TID PRN Muscle Spasm 07/24/22 07/24/22 (units unknown) (unknown) (unknown) (no date) (unknown) (unknown) diltiazem HCl 120 mg 120 mg PO [facility] 07/08/22 07/24/22 (units unknown) (unknown) (unknown) (no date) (unknown) (unknown) diltiazem HCl [Cartia XT] 120 mg capsule,extended release 24hr (units unknown) (unknown) (unknown) (no date) (unknown) (unknown) doxazosin [From Cardura] Allergy Intermediate Rash Verified 02/09/23 18:21 (units unknown) (unknown) (unknown) (no date) (unknown) (unknown) doxycycline Allergy Intermediate Rash Verified 02/09/23 18:21 (units unknown) (unknown) (unknown) (no date) (unknown) (unknown) formoterol [From Symbicort] Allergy Mild Anxiety Verified 02/09/23 18:21 (units unknown) (unknown) (unknown) (no date) (unknown) (unknown) furosemide 40 mg tablet 40 mg PO QAM 07/08/22 07/08/22 (units unknown) (unknown) (unknown) (no date) (unknown) (unknown) furosemide 40 mg tablet (units unknown) (unknown) (unknown) (no date) (unknown) (unknown) gemfibrozil Allergy Intermediate Rash Verified 02/09/23 18:21 (units unknown) (unknown) (unknown) (no date) (unknown) (unknown) household members: family and children (units unknown) (unknown) (unknown) (no date) (unknown) (unknown) inhaler Breath (units unknown) (unknown) (unknown) (no date) (unknown) (unknown) ipratropium 0.5 mg-albuterol 3 mg ml inhalation PRN Shortness Of 07/24/22 (units unknown) (unknown) (unknown) (no date) (unknown) (unknown) ipratropium-albutero l 0.5 mg-3 mg(2.5 mg base)/3 mL solution for nebulization (units unknown) (unknown) (unknown) (no date) (unknown) (unknown) isosorbide mononitrate 120 mg 120 mg PO QAM 07/08/22 07/24/22 (units unknown) (unknown) (unknown) (no date) (unknown) (unknown) isosorbide mononitrate 120 mg tablet extended release 24 hr (units unknown) (unknown) (unknown) (no date) (unknown) (unknown) levofloxacin Allergy Intermediate Rash Verified 02/09/23 18:21 (units unknown) (unknown) (unknown) (no date) (unknown) (unknown) levothyroxine 88 mcg tablet 88 mcg PO QAM 07/08/22 07/24/22 (units unknown) (unknown) (unknown) (no date) (unknown) (unknown) levothyroxine 88 mcg tablet (units unknown) (unknown) (unknown) (no date) (unknown) (unknown) lisinopril 40 mg tablet 20 mg PO QAM 07/08/22 07/24/22 (units unknown) (unknown) (unknown) (no date) (unknown) (unknown) lisinopril 40 mg tablet (units unknown) (unknown) (unknown) (no date) (unknown) (unknown) losartan Allergy Intermediate Rash Verified 02/09/23 18:21 (units unknown) (unknown) (unknown) (no date) (unknown) (unknown) metoprolol AdvReac Intermediate Verified 02/09/23 18:21 (units unknown) (unknown) (unknown) (no date) (unknown) (unknown) metoprolol succinate 25 mg 25 mg PO DAILY 07/24/22 07/24/22 (units unknown) (unknown) (unknown) (no date) (unknown) (unknown) metoprolol succinate 25 mg tablet extended release 24 hr (units unknown) (unknown) (unknown) (no date) (unknown) (unknown) montelukast [From Singulair] Allergy Intermediate Difficulty Verified 02/09/23 (units unknown) (unknown) (unknown) (no date) (unknown) (unknown) morning (units unknown) (unknown) (unknown) (no date) (unknown) (unknown) multivitamin 1 tab PO DAILY 09/10/18 07/24/22 (units unknown) (unknown) (unknown) (no date) (unknown) (unknown) multivitamin Tablet,Chewable (units unknown) (unknown) (unknown) (no date) (unknown) (unknown) nifedipine Allergy Intermediate Chills Verified 02/09/23 18:21 (units unknown) (unknown) (unknown) (no date) (unknown) (unknown) nitroglycerin 0.4 mg sublingual 0.4 mg sublingual Q5-15M PRN Chest 09/10/18 (units unknown) (unknown) (unknown) (no date) (unknown) (unknown) nitroglycerin [Nitrostat] 0.4 mg Tablet, Sublingual (units unknown) (unknown) (unknown) (no date) (unknown) (unknown) omega 5-jdo-hsw-fish oil 1,000 mg 1,000 mg PO DAILY 09/10/18 07/24/22 (units unknown) (unknown) (unknown) (no date) (unknown) (unknown) omega 3-yea-fxe-fish oil [Fish Oil] 1,000 mg (120 mg-180 mg) Capsule (units unknown) (unknown) (unknown) (no date) (unknown) (unknown) patient states she forgets to take (units unknown) (unknown) (unknown) (no date) (unknown) (unknown) pt has not started, it is at the pharmacy for her to picker (units unknown) (unknown) (unknown) (no date) (unknown) (unknown) pt instructed to stop medications. d/c 07/14/22 (units unknown) (unknown) (unknown) (no date) (unknown) (unknown) release (units unknown) (unknown) (unknown) (no date) (unknown) (unknown) soln (units unknown) (unknown) (unknown) (no date) (unknown) (unknown) sulfamethoxazole Allergy Intermediate Rash Verified 02/09/23 18:21 (units unknown) (unknown) (unknown) (no date) (unknown) (unknown) tablet (Nitrostat) Pain (units unknown) (unknown) (unknown) (no date) (unknown) (unknown) tablet,extended release 24 hr (units unknown) (unknown) (unknown) (no date) (unknown) (unknown) tobacco type: cigarettes (units unknown) (unknown) (unknown) (no date) (unknown) (unknown) torsemide 20 mg Tablet (units unknown) (unknown) (unknown) (no date) (unknown) (unknown) torsemide 20 mg tablet 20 mg PO DAILY 07/24/22 07/24/22 (units unknown) (unknown) (unknown) (no date) (unknown) (unknown) trimethoprim [From Bactrim] Allergy Intermediate Rash Verified 02/09/23 18:21 (units unknown) (unknown) (unknown) (no date) (unknown) (unknown) vitamin E 268 mg (400 unit) capsule 400 unit PO DAILY 09/10/18 07/24/22 (units unknown) (unknown) (unknown) (no date) (unknown) (unknown) vitamin E 400 unit Capsule (units unknown) (unknown) Result panel [id number] (unknown) (no date) (unknown) (unknown) (no value) (units unknown) (unknown) (unknown) (no date) (unknown) (unknown) (120 mg-180 mg) capsule (Fish Oil) (units unknown) (unknown) (unknown) (no date) (unknown) (unknown) (2.5 mg base)/3 mL nebulization Breath Or Wheezing (units unknown) (unknown) (unknown) (no date) (unknown) (unknown) (Cartia XT) (units unknown) (unknown) (unknown) (no date) (unknown) (unknown) 0.4 mg SUBLINGUAL Q5-15M PRN (Reason: Chest Pain) (units unknown) (unknown) (unknown) (no date) (unknown) (unknown) [id number] (units unknown) (unknown) (unknown) (no date) (unknown) (unknown) 02/09/23 02/09/23 02/09/23 Range/Units (units unknown) (unknown) (unknown) (no date) (unknown) (unknown) 02/09/23 18:21 (units unknown) (unknown) (unknown) (no date) (unknown) (unknown) 02/09/23 18:30 (units unknown) (unknown) (unknown) (no date) (unknown) (unknown) 02/09/23 (units unknown) (unknown) (unknown) (no date) (unknown) (unknown) 07/24/22 (units unknown) (unknown) (unknown) (no date) (unknown) (unknown) 1 tab PO DAILY (units unknown) (unknown) (unknown) (no date) (unknown) (unknown) 1,000 mg PO DAILY (units unknown) (unknown) (unknown) (no date) (unknown) (unknown) 10 mg PO TID PRN (Reason: Muscle Spasm) (units unknown) (unknown) (unknown) (no date) (unknown) (unknown) 10 ml PO PRN (Reason: Cough) (units unknown) (unknown) (unknown) (no date) (unknown) (unknown) 10-100mg/5ml liquid. take 10ml by mouth every 4 hrs as needed for cough (units unknown) (unknown) (unknown) (no date) (unknown) (unknown) 120 mg PO QAM (units unknown) (unknown) (unknown) (no date) (unknown) (unknown) 18:15 (units unknown) (unknown) (unknown) (no date) (unknown) (unknown) 18:21 (units unknown) (unknown) (unknown) (no date) (unknown) (unknown) 18:30 18:30 18:30 (units unknown) (unknown) (unknown) (no date) (unknown) (unknown) 20 mg PO DAILY (units unknown) (unknown) (unknown) (no date) (unknown) (unknown) 20 mg PO QAM (units unknown) (unknown) (unknown) (no date) (unknown) (unknown) 25 mg PO DAILY (units unknown) (unknown) (unknown) (no date) (unknown) (unknown) 40 mg PO QAM (units unknown) (unknown) (unknown) (no date) (unknown) (unknown) 40 mg PO QPM (units unknown) (unknown) (unknown) (no date) (unknown) (unknown) 400 unit PO DAILY (units unknown) (unknown) (unknown) (no date) (unknown) (unknown) 75 mg PO QAM (units unknown) (unknown) (unknown) (no date) (unknown) (unknown) 81 mg PO QDAY Qty: 0 (units unknown) (unknown) (unknown) (no date) (unknown) (unknown) 88 mcg PO QAM (units unknown) (unknown) (unknown) (no date) (unknown) (unknown) 90 mcg INHALATION PRN (Reason: Shortness Of Breath) (units unknown) (unknown) (unknown) (no date) (unknown) (unknown) ABDOMEN: Soft, nontender. Normoactive bowel sounds all 4 quadrants. No (units unknown) (unknown) (unknown) (no date) (unknown) (unknown) ALT 22 (<35) IU/L (units unknown) (unknown) (unknown) (no date) (unknown) (unknown) APTT 30 (26-36) SECONDS (units unknown) (unknown) (unknown) (no date) (unknown) (unknown) AST 28 (14-36) IU/L (units unknown) (unknown) (unknown) (no date) (unknown) (unknown) Age/Sex: 87 / F (units unknown) (unknown) (unknown) (no date) (unknown) (unknown) Albumin 4.1 (3.5-5.0) g/dL (units unknown) (unknown) (unknown) (no date) (unknown) (unknown) Albumin/Globulin Ratio 1.3 (1.0-2.8) (units unknown) (unknown) (unknown) (no date) (unknown) (unknown) Alkaline Phosphatase 76 (38-126) U/L (units unknown) (unknown) (unknown) (no date) (unknown) (unknown) Allergies (units unknown) (unknown) (unknown) (no date) (unknown) (unknown) Allergy/AdvReac Type Severity Reaction Status Date / Time (units unknown) (unknown) (unknown) (no date) (unknown) (unknown) Aneurysm of infrarenal abdominal aorta (units unknown) (unknown) (unknown) (no date) (unknown) (unknown) Antibiotics) (units unknown) (unknown) (unknown) (no date) (unknown) (unknown) Aspirin (Aspirin 81 Mg Chew Tab) 324 mg PO NOW ONE (units unknown) (unknown) (unknown) (no date) (unknown) (unknown) BUN 26 H (7-17) mg/dL (units unknown) (unknown) (unknown) (no date) (unknown) (unknown) BUN/Creatinine Ratio 24.5 H (6-22) (units unknown) (unknown) (unknown) (no date) (unknown) (unknown) Baso # (Auto) 100 (0-100) /uL (units unknown) (unknown) (unknown) (no date) (unknown) (unknown) Baso % (Auto) 0.4 (0-2) % (units unknown) (unknown) (unknown) (no date) (unknown) (unknown) Bilateral carpal tunnel syndrome (units unknown) (unknown) (unknown) (no date) (unknown) (unknown) Blood Pressure 141/61 H 02/09/23 18:15 (units unknown) (unknown) (unknown) (no date) (unknown) (unknown) Blood Pressure 141/61 H (units unknown) (unknown) (unknown) (no date) (unknown) (unknown) Breathing (units unknown) (unknown) (unknown) (no date) (unknown) (unknown) CABG, CHF, hypertension, dyslipidemia anticoagulated on aspirin and Plavix. (units unknown) (unknown) (unknown) (no date) (unknown) (unknown) CAD (coronary artery disease) (units unknown) (unknown) (unknown) (no date) (unknown) (unknown) CARDIOVASCULAR: Regular rate and rhythm without murmurs, rubs or gallops. No (units unknown) (unknown) (unknown) (no date) (unknown) (unknown) CK-MB (CK-2) Rel Index TNP (units unknown) (unknown) (unknown) (no date) (unknown) (unknown) CK-MB (CK-2) TNP (units unknown) (unknown) (unknown) (no date) (unknown) (unknown) COPD (chronic obstructive pulmonary disease) with emphysema (units unknown) (unknown) (unknown) (no date) (unknown) (unknown) COVID19 -Nasal RAPID Stat (units unknown) (unknown) (unknown) (no date) (unknown) (unknown) Calcium 10.0 (8.4-10.2) mg/dL (units unknown) (unknown) (unknown) (no date) (unknown) (unknown) Carbon Dioxide 33 H (22-32) mmol/L (units unknown) (unknown) (unknown) (no date) (unknown) (unknown) Chief Complaint: Chest Pain (units unknown) (unknown) (unknown) (no date) (unknown) (unknown) Chloride 95 L (98-107) mmol/L (units unknown) (unknown) (unknown) (no date) (unknown) (unknown) Complete Blood Count AUTO DIFF Stat (units unknown) (unknown) (unknown) (no date) (unknown) (unknown) Comprehensive Metabolic Panel Stat (units unknown) (unknown) (unknown) (no date) (unknown) (unknown) Course (units unknown) (unknown) (unknown) (no date) (unknown) (unknown) Creatinine 1.06 H (0.52-1.04) mg/dL (units unknown) (unknown) (unknown) (no date) (unknown) (unknown) : 1935 Acct:[id number] (units unknown) (unknown) (unknown) (no date) (unknown) (unknown) Date of Service: 02/09/23 (units unknown) (unknown) (unknown) (no date) (unknown) (unknown) Departure (units unknown) (unknown) (unknown) (no date) (unknown) (unknown) Discharge Plan (units unknown) (unknown) (unknown) (no date) (unknown) (unknown) Discontinued Medications (units unknown) (unknown) (unknown) (no date) (unknown) (unknown) ED Orders (units unknown) (unknown) (unknown) (no date) (unknown) (unknown) EKG-12 Lead Stat (units unknown) (unknown) (unknown) (no date) (unknown) (unknown) ER Physician: Glo Vela D.O. (units unknown) (unknown) (unknown) (no date) (unknown) (unknown) EXTREMITIES: Normal range of motion, no clubbing or edema. 2+ pulses (units unknown) (unknown) (unknown) (no date) (unknown) (unknown) Elevated TSH (units unknown) (unknown) (unknown) (no date) (unknown) (unknown) Emergency Report (units unknown) (unknown) (unknown) (no date) (unknown) (unknown) Eos # (Auto) 100 (0-450) /uL (units unknown) (unknown) (unknown) (no date) (unknown) (unknown) Eos % (Auto) 0.9 L (2-4) % (units unknown) (unknown) (unknown) (no date) (unknown) (unknown) Estimated GFR 51 L (>60) mL/min (units unknown) (unknown) (unknown) (no date) (unknown) (unknown) Exam Narrative: (units unknown) (unknown) (unknown) (no date) (unknown) (unknown) Exam (units unknown) (unknown) (unknown) (no date) (unknown) (unknown) Family History (units unknown) (unknown) (unknown) (no date) (unknown) (unknown) Father Lung cancer (units unknown) (unknown) (unknown) (no date) (unknown) (unknown) Flonase 50 mcg (units unknown) (unknown) (unknown) (no date) (unknown) (unknown) Flonase PRN Dry Nasal Passages 07/24/22 (units unknown) (unknown) (unknown) (no date) (unknown) (unknown) GENERAL: Alert and oriented x three, elderly female in no acute distress. (units unknown) (unknown) (unknown) (no date) (unknown) (unknown) : No CVA tenderness (units unknown) (unknown) (unknown) (no date) (unknown) (unknown) General (units unknown) (unknown) (unknown) (no date) (unknown) (unknown) Globulin 3.2 (1.7-4.1) g/dL (units unknown) (unknown) (unknown) (no date) (unknown) (unknown) Glucose 167 H (80-110) mg/dL (units unknown) (unknown) (unknown) (no date) (unknown) (unknown) H/O hysterectomy with oophorectomy (units unknown) (unknown) (unknown) (no date) (unknown) (unknown) H/O three vessel coronary artery bypass (units unknown) (unknown) (unknown) (no date) (unknown) (unknown) HEENT: Head normocephalic, atraumatic, EOMI, pupils reactive, face symmetric, (units unknown) (unknown) (unknown) (no date) (unknown) (unknown) HPI - Chest Pain (units unknown) (unknown) (unknown) (no date) (unknown) (unknown) HPI narrative: (units unknown) (unknown) (unknown) (no date) (unknown) (unknown) HTN (hypertension) (units unknown) (unknown) (unknown) (no date) (unknown) (unknown) Hct 41.3 (36-46) % (units unknown) (unknown) (unknown) (no date) (unknown) (unknown) Hgb 13.8 (12.0-16.0) g/dL (units unknown) (unknown) (unknown) (no date) (unknown) (unknown) History of Present Illness (units unknown) (unknown) (unknown) (no date) (unknown) (unknown) Home Medications (units unknown) (unknown) (unknown) (no date) (unknown) (unknown) Hx of heart artery stent (units unknown) (unknown) (unknown) (no date) (unknown) (unknown) Hyperlipidemia (units unknown) (unknown) (unknown) (no date) (unknown) (unknown) INHALATION PRN (Reason: Shortness Of Breath Or Wheezing) (units unknown) (unknown) (unknown) (no date) (unknown) (unknown) INR 1.1 (0.9-1.3) (units unknown) (unknown) (unknown) (no date) (unknown) (unknown) Initial Vital Signs (units unknown) (unknown) (unknown) (no date) (unknown) (unknown) Initial Vital Signs: (units unknown) (unknown) (unknown) (no date) (unknown) (unknown) [address] [address] (units unknown) (unknown) (unknown) (no date) (unknown) (unknown) JVD. No swelling bilateral lower extremities. (units unknown) (unknown) (unknown) (no date) (unknown) (unknown) Lab Data (units unknown) (unknown) (unknown) (no date) (unknown) (unknown) Lab Results (units unknown) (unknown) (unknown) (no date) (unknown) (unknown) Labs: (units unknown) (unknown) (unknown) (no date) (unknown) (unknown) Limitations: no limitations (units unknown) (unknown) (unknown) (no date) (unknown) (unknown) Lipase 45 (23-300) U/L (units unknown) (unknown) (unknown) (no date) (unknown) (unknown) Lipase Stat (units unknown) (unknown) (unknown) (no date) (unknown) (unknown) Lymph # (Auto) 1200 (9544-9475) /uL (units unknown) (unknown) (unknown) (no date) (unknown) (unknown) Lymph % (Auto) 9.2 L (25-40) % (units unknown) (unknown) (unknown) (no date) (unknown) (unknown) MCH 28.7 (26-34) PG (units unknown) (unknown) (unknown) (no date) (unknown) (unknown) MCHC 33.6 (30-36) % (units unknown) (unknown) (unknown) (no date) (unknown) (unknown) MCV 85.4 (80-100) fL (units unknown) (unknown) (unknown) (no date) (unknown) (unknown) MDM - Chest Pain (units unknown) (unknown) (unknown) (no date) (unknown) (unknown) Magnesium 1.9 (1.6-2.3) mg/dL (units unknown) (unknown) (unknown) (no date) (unknown) (unknown) Magnesium Stat (units unknown) (unknown) (unknown) (no date) (unknown) (unknown) Medical History (units unknown) (unknown) (unknown) (no date) (unknown) (unknown) Medication Instructions Recorded Confirmed (units unknown) (unknown) (unknown) (no date) (unknown) (unknown) Mode of arrival: Ambulatory (units unknown) (unknown) (unknown) (no date) (unknown) (unknown) [place] # (Auto) 700 (0-900) /uL (units unknown) (unknown) (unknown) (no date) (unknown) (unknown) [place] % (Auto) 5.1 (3-14) % (units unknown) (unknown) (unknown) (no date) (unknown) (unknown) Mother COPD (chronic obstructive pulmonary disease) (units unknown) (unknown) (unknown) (no date) (unknown) (unknown) NECK: Supple, full range of motion (units unknown) (unknown) (unknown) (no date) (unknown) (unknown) NEUROLOGICAL: Cranial nerves II through XII grossly intact. Moving all (units unknown) (unknown) (unknown) (no date) (unknown) (unknown) Narrative (units unknown) (unknown) (unknown) (no date) (unknown) (unknown) Neut # (Auto) 55398 H (8612-8162) /uL (units unknown) (unknown) (unknown) (no date) (unknown) (unknown) Neut % (Auto) 84.4 H (50-75) % (units unknown) (unknown) (unknown) (no date) (unknown) (unknown) No Action (units unknown) (unknown) (unknown) (no date) (unknown) (unknown) Ordered: (units unknown) (unknown) (unknown) (no date) (unknown) (unknown) Orders (units unknown) (unknown) (unknown) (no date) (unknown) (unknown) Oxygen Delivery Method Room Air 02/09/23 18:15 (units unknown) (unknown) (unknown) (no date) (unknown) (unknown) Oxygen Delivery Method Room Air (units unknown) (unknown) (unknown) (no date) (unknown) (unknown) PRN (Reason: Dry Nasal Passages) (units unknown) (unknown) (unknown) (no date) (unknown) (unknown) PT 12.8 H (10.1-12.7) SECONDS (units unknown) (unknown) (unknown) (no date) (unknown) (unknown) PTT Partial Thromboplastin Jorge Luis Stat (units unknown) (unknown) (unknown) (no date) (unknown) (unknown) Pain (units unknown) (unknown) (unknown) (no date) (unknown) (unknown) Patient Comments: (units unknown) (unknown) (unknown) (no date) (unknown) (unknown) Patient History (units unknown) (unknown) (unknown) (no date) (unknown) (unknown) Patient states that she had stopped her prednisone on the 11th after a recent (units unknown) (unknown) (unknown) (no date) (unknown) (unknown) Patient: Roselyn Mejia MR#: [id number] (units unknown) (unknown) (unknown) (no date) (unknown) (unknown) Plt Count 244 (150-400) X103/uL (units unknown) (unknown) (unknown) (no date) (unknown) (unknown) Potassium 4.0 (3.4-5.1) mmol/L (units unknown) (unknown) (unknown) (no date) (unknown) (unknown) Prescriptions: (units unknown) (unknown) (unknown) (no date) (unknown) (unknown) Prothrombin Time INR Stat (units unknown) (unknown) (unknown) (no date) (unknown) (unknown) Pulse Oximetry 96 02/09/23 18:15 (units unknown) (unknown) (unknown) (no date) (unknown) (unknown) Pulse Oximetry 96 (units unknown) (unknown) (unknown) (no date) (unknown) (unknown) Pulse Rate 84 02/09/23 18:15 (units unknown) (unknown) (unknown) (no date) (unknown) (unknown) Pulse Rate 84 (units unknown) (unknown) (unknown) (no date) (unknown) (unknown) RBC 4.83 (4.0-5.2) X106/uL (units unknown) (unknown) (unknown) (no date) (unknown) (unknown) RDW 16.3 H (11.6-14.8) % (units unknown) (unknown) (unknown) (no date) (unknown) (unknown) RESPIRATORY: Breath sounds equal bilaterally, no wheezes rales or rhonchi. No (units unknown) (unknown) (unknown) (no date) (unknown) (unknown) ROS Unobtainable: All systems reviewed + are unremarkable except as noted in HPI (units unknown) (unknown) (unknown) (no date) (unknown) (unknown) Referrals: (units unknown) (unknown) (unknown) (no date) (unknown) (unknown) Related Data (units unknown) (unknown) (unknown) (no date) (unknown) (unknown) Respiratory Rate 20 02/09/23 18:15 (units unknown) (unknown) (unknown) (no date) (unknown) (unknown) Respiratory Rate 20 (units unknown) (unknown) (unknown) (no date) (unknown) (unknown) Review of Systems (units unknown) (unknown) (unknown) (no date) (unknown) (unknown) Robitussin DM To Go 10 ml PO PRN Cough 07/24/22 (units unknown) (unknown) (unknown) (no date) (unknown) (unknown) Robitussin DM To Go (units unknown) (unknown) (unknown) (no date) (unknown) (unknown) Rx Instructions: (units unknown) (unknown) (unknown) (no date) (unknown) (unknown) SKIN: Warm, dry, no petechiae, no rashes or lesions. (units unknown) (unknown) (unknown) (no date) (unknown) (unknown) She took took puffs on the way over here and it helped her symptoms. Patient (units unknown) (unknown) (unknown) (no date) (unknown) (unknown) Signed By: (units unknown) (unknown) (unknown) (no date) (unknown) (unknown) Skin (units unknown) (unknown) (unknown) (no date) (unknown) (unknown) Smoking Status: Former smoker (units unknown) (unknown) (unknown) (no date) (unknown) (unknown) Social History (units unknown) (unknown) (unknown) (no date) (unknown) (unknown) Sodium 135 L (137-145) mmol/L (units unknown) (unknown) (unknown) (no date) (unknown) (unknown) Source: patient (units unknown) (unknown) (unknown) (no date) (unknown) (unknown) Stated Complaint: has COPD, sent [facility] (units unknown) (unknown) (unknown) (no date) (unknown) (unknown) Status post cholecystectomy (units unknown) (unknown) (unknown) (no date) (unknown) (unknown) Stop: 02/09/23 18:22 (units unknown) (unknown) (unknown) (no date) (unknown) (unknown) Substance Use Type: does not use (units unknown) (unknown) (unknown) (no date) (unknown) (unknown) Sulfa (Sulfonamide Allergy Intermediate rash Verified 02/09/23 18:21 (units unknown) (unknown) (unknown) (no date) (unknown) (unknown) Surgical History (units unknown) (unknown) (unknown) (no date) (unknown) (unknown) TAKE 1 CAPSULE BY MOUTH ONCE DAILY (units unknown) (unknown) (unknown) (no date) (unknown) (unknown) TAKE 1 TABLET BY MOUTH ONCE DAILY IN THE MORNING (units unknown) (unknown) (unknown) (no date) (unknown) (unknown) TAKE 1 TABLET BY MOUTH ONCE DAILY (units unknown) (unknown) (unknown) (no date) (unknown) (unknown) Temperature 98.1 F 02/09/23 18:15 (units unknown) (unknown) (unknown) (no date) (unknown) (unknown) Temperature 98.1 F (units unknown) (unknown) (unknown) (no date) (unknown) (unknown) They recommended she come for evaluation but also told her to try her inhaler. (units unknown) (unknown) (unknown) (no date) (unknown) (unknown) This is an 87-year-old with history of COPD on 2 L nasal cannula 24 hours a day, (units unknown) (unknown) (unknown) (no date) (unknown) (unknown) Time Seen by Provider: 02/09/23 19:10 (units unknown) (unknown) (unknown) (no date) (unknown) (unknown) Total Bilirubin 2.7 H (0.2-1.3) mg/dL (units unknown) (unknown) (unknown) (no date) (unknown) (unknown) Total Creatine Kinase 30 (30-135) U/L (units unknown) (unknown) (unknown) (no date) (unknown) (unknown) Total Protein 7.3 (6.3-8.2) g/dL (units unknown) (unknown) (unknown) (no date) (unknown) (unknown) Troponin + CK Cardiac Panel Stat (units unknown) (unknown) (unknown) (no date) (unknown) (unknown) Troponin I 0.017 (0.01-0.034) ng/mL (units unknown) (unknown) (unknown) (no date) (unknown) (unknown) Unstable angina (units unknown) (unknown) (unknown) (no date) (unknown) (unknown) Valvular heart disease (units unknown) (unknown) (unknown) (no date) (unknown) (unknown) Vital Signs - 8 hr (units unknown) (unknown) (unknown) (no date) (unknown) (unknown) Vital Signs (units unknown) (unknown) (unknown) (no date) (unknown) (unknown) Vital signs: (units unknown) (unknown) (unknown) (no date) (unknown) (unknown) WBC 12.8 H (4.5-11.0) X103/uL (units unknown) (unknown) (unknown) (no date) (unknown) (unknown) Katy Salazar ARNP [Primary Care Provider] (units unknown) (unknown) (unknown) (no date) (unknown) (unknown) XR chest 1V Stat (units unknown) (unknown) (unknown) (no date) (unknown) (unknown) [Embedded Image Not Available] (units unknown) (unknown) (unknown) (no date) (unknown) (unknown) [From Bactrim] (units unknown) (unknown) (unknown) (no date) (unknown) (unknown) [From Trilipix] Upset (units unknown) (unknown) (unknown) (no date) (unknown) (unknown) acarbose Allergy Intermediate Abdominal Verified 02/09/23 18:21 (units unknown) (unknown) (unknown) (no date) (unknown) (unknown) albuterol 90 mcg/actuation Aerosol (units unknown) (unknown) (unknown) (no date) (unknown) (unknown) albuterol 90 mcg/actuation aerosol 90 mcg inhalation PRN Shortness Of 07/24/22 (units unknown) (unknown) (unknown) (no date) (unknown) (unknown) alcohol intake frequency: 0-2 drinks per day (units unknown) (unknown) (unknown) (no date) (unknown) (unknown) alcohol intake: never (units unknown) (unknown) (unknown) (no date) (unknown) (unknown) alcohol, no illicit. 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 She states she went to the walk-in clinic (units unknown) (unknown) (unknown) (no date) (unknown) (unknown) aspirin 81 MG tablet,delayed release (DR/EC) (units unknown) (unknown) (unknown) (no date) (unknown) (unknown) aspirin 81 mg tablet,delayed 81 mg PO QDAY ##0 09/14/17 07/24/22 (units unknown) (unknown) (unknown) (no date) (unknown) (unknown) atorvastatin 20 mg tablet (Lipitor) 40 mg PO QPM 07/08/22 07/24/22 (units unknown) (unknown) (unknown) (no date) (unknown) (unknown) atorvastatin [Lipitor] 20 mg tablet (units unknown) (unknown) (unknown) (no date) (unknown) (unknown) because she could not get a hold of her primary care at the front office administrator referral. (units unknown) (unknown) (unknown) (no date) (unknown) (unknown) bilaterally lower extremities. Neurovascularly intact (units unknown) (unknown) (unknown) (no date) (unknown) (unknown) budesonide [From Symbicort] Allergy Mild Anxiety Verified 02/09/23 18:21 (units unknown) (unknown) (unknown) (no date) (unknown) (unknown) capsule,extended release 24 hr (units unknown) (unknown) (unknown) (no date) (unknown) (unknown) carvedilol Allergy Mild Rash Verified 02/09/23 18:21 (units unknown) (unknown) (unknown) (no date) (unknown) (unknown) chlorthalidone Allergy Intermediate Redness of Verified 02/09/23 18:21 (units unknown) (unknown) (unknown) (no date) (unknown) (unknown) choline fenofibrate Allergy Mild Gastrointestinal Verified 02/09/23 18:21 (units unknown) (unknown) (unknown) (no date) (unknown) (unknown) clopidogrel 75 mg tablet 75 mg PO QAM 07/24/22 07/24/22 (units unknown) (unknown) (unknown) (no date) (unknown) (unknown) clopidogrel 75 mg tablet (units unknown) (unknown) (unknown) (no date) (unknown) (unknown) cyclobenzaprine 10 mg Tablet (units unknown) (unknown) (unknown) (no date) (unknown) (unknown) cyclobenzaprine 10 mg tablet 10 mg PO TID PRN Muscle Spasm 07/24/22 07/24/22 (units unknown) (unknown) (unknown) (no date) (unknown) (unknown) denies any fevers, no chills, no cold, cough or congestion she is had some more (units unknown) (unknown) (unknown) (no date) (unknown) (unknown) diaphoretic with it. No nausea no vomiting. No abdominal back or flank pain, (units unknown) (unknown) (unknown) (no date) (unknown) (unknown) diltiazem HCl 120 mg 120 mg PO QAM 07/08/22 07/24/22 (units unknown) (unknown) (unknown) (no date) (unknown) (unknown) diltiazem HCl [Cartia XT] 120 mg capsule,extended release 24hr (units unknown) (unknown) (unknown) (no date) (unknown) (unknown) does use Advair twice daily, she states she typically uses her albuterol couple (units unknown) (unknown) (unknown) (no date) (unknown) (unknown) doxazosin [From Cardura] Allergy Intermediate Rash Verified 02/09/23 18:21 (units unknown) (unknown) (unknown) (no date) (unknown) (unknown) doxycycline Allergy Intermediate Rash Verified 02/09/23 18:21 (units unknown) (unknown) (unknown) (no date) (unknown) (unknown) extremities (units unknown) (unknown) (unknown) (no date) (unknown) (unknown) flare. She is had a little bit increased shortness of breath and heaviness in (units unknown) (unknown) (unknown) (no date) (unknown) (unknown) formoterol [From Symbicort] Allergy Mild Anxiety Verified 02/09/23 18:21 (units unknown) (unknown) (unknown) (no date) (unknown) (unknown) frequent belching. She states it is always substernal not radiating it is worse (units unknown) (unknown) (unknown) (no date) (unknown) (unknown) frequently but states no dysuria, urgency or other changes. Patient has not had (units unknown) (unknown) (unknown) (no date) (unknown) (unknown) furosemide 40 mg tablet 40 mg PO QAM 07/08/22 07/08/22 (units unknown) (unknown) (unknown) (no date) (unknown) (unknown) furosemide 40 mg tablet (units unknown) (unknown) (unknown) (no date) (unknown) (unknown) gemfibrozil Allergy Intermediate Rash Verified 02/09/23 18:21 (units unknown) (unknown) (unknown) (no date) (unknown) (unknown) guarding or rebound, rigidity, no mass (units unknown) (unknown) (unknown) (no date) (unknown) (unknown) her substernal chest for the past 1-2 days and while walking at [employer] the (units unknown) (unknown) (unknown) (no date) (unknown) (unknown) household members: family and children (units unknown) (unknown) (unknown) (no date) (unknown) (unknown) inhaler Breath (units unknown) (unknown) (unknown) (no date) (unknown) (unknown) ipratropium 0.5 mg-albuterol 3 mg ml inhalation PRN Shortness Of 07/24/22 (units unknown) (unknown) (unknown) (no date) (unknown) (unknown) ipratropium-albutero l 0.5 mg-3 mg(2.5 mg base)/3 mL solution for nebulization (units unknown) (unknown) (unknown) (no date) (unknown) (unknown) isosorbide mononitrate 120 mg 120 mg PO QAM 07/08/22 07/24/22 (units unknown) (unknown) (unknown) (no date) (unknown) (unknown) isosorbide mononitrate 120 mg tablet extended release 24 hr (units unknown) (unknown) (unknown) (no date) (unknown) (unknown) levofloxacin Allergy Intermediate Rash Verified 02/09/23 18:21 (units unknown) (unknown) (unknown) (no date) (unknown) (unknown) levothyroxine 88 mcg tablet 88 mcg PO QAM 07/08/22 07/24/22 (units unknown) (unknown) (unknown) (no date) (unknown) (unknown) levothyroxine 88 mcg tablet (units unknown) (unknown) (unknown) (no date) (unknown) (unknown) lisinopril 40 mg tablet 20 mg PO QAM 07/08/22 07/24/22 (units unknown) (unknown) (unknown) (no date) (unknown) (unknown) lisinopril 40 mg tablet (units unknown) (unknown) (unknown) (no date) (unknown) (unknown) losartan Allergy Intermediate Rash Verified 02/09/23 18:21 (units unknown) (unknown) (unknown) (no date) (unknown) (unknown) metoprolol AdvReac Intermediate Verified 02/09/23 18:21 (units unknown) (unknown) (unknown) (no date) (unknown) (unknown) metoprolol succinate 25 mg 25 mg PO DAILY 07/24/22 07/24/22 (units unknown) (unknown) (unknown) (no date) (unknown) (unknown) metoprolol succinate 25 mg tablet extended release 24 hr (units unknown) (unknown) (unknown) (no date) (unknown) (unknown) moist mucous membranes (units unknown) (unknown) (unknown) (no date) (unknown) (unknown) montelukast [From [facility]] Allergy Intermediate Difficulty Verified 02/09/23 (units unknown) (unknown) (unknown) (no date) (unknown) (unknown) morning (units unknown) (unknown) (unknown) (no date) (unknown) (unknown) multiple allergies. She smoked for about 17 years quitting in the 70s. No (units unknown) (unknown) (unknown) (no date) (unknown) (unknown) multivitamin 1 tab PO DAILY 09/10/18 07/24/22 (units unknown) (unknown) (unknown) (no date) (unknown) (unknown) multivitamin Tablet,Chewable (units unknown) (unknown) (unknown) (no date) (unknown) (unknown) nifedipine Allergy Intermediate Chills Verified 02/09/23 18:21 (units unknown) (unknown) (unknown) (no date) (unknown) (unknown) nitroglycerin 0.4 mg sublingual 0.4 mg sublingual Q5-15M PRN Chest 09/10/18 (units unknown) (unknown) (unknown) (no date) (unknown) (unknown) nitroglycerin [Nitrostat] 0.4 mg Tablet, Sublingual (units unknown) (unknown) (unknown) (no date) (unknown) (unknown) no issues with bowel movements. She is on water pills so she urinates (units unknown) (unknown) (unknown) (no date) (unknown) (unknown) omega 1-ety-qhb-fish oil 1,000 mg 1,000 mg PO DAILY 09/10/18 07/24/22 (units unknown) (unknown) (unknown) (no date) (unknown) (unknown) omega 9-xwr-tip-fish oil [Fish Oil] 1,000 mg (120 mg-180 mg) Capsule (units unknown) (unknown) (unknown) (no date) (unknown) (unknown) other day while shopping felt a little bit more heaviness. She did note that (units unknown) (unknown) (unknown) (no date) (unknown) (unknown) patient states she forgets to take (units unknown) (unknown) (unknown) (no date) (unknown) (unknown) pt has not started, it is at the pharmacy for her to picker (units unknown) (unknown) (unknown) (no date) (unknown) (unknown) pt instructed to stop medications. d/c 07/14/22 (units unknown) (unknown) (unknown) (no date) (unknown) (unknown) release (units unknown) (unknown) (unknown) (no date) (unknown) (unknown) she forgets to use her inhaler frequently and has not been using that. She (units unknown) (unknown) (unknown) (no date) (unknown) (unknown) soln (units unknown) (unknown) (unknown) (no date) (unknown) (unknown) statin medication for hypothyroidism, blood pressure. Patient states she has (units unknown) (unknown) (unknown) (no date) (unknown) (unknown) sulfamethoxazole Allergy Intermediate Rash Verified 02/09/23 18:21 (units unknown) (unknown) (unknown) (no date) (unknown) (unknown) tablet (Nitrostat) Pain (units unknown) (unknown) (unknown) (no date) (unknown) (unknown) tablet,extended release 24 hr (units unknown) (unknown) (unknown) (no date) (unknown) (unknown) tachypnea. Speaks in full sentences. Easy work of breathing. (units unknown) (unknown) (unknown) (no date) (unknown) (unknown) times a week but typically also forgets to use it. She is on aspirin, Plavix, (units unknown) (unknown) (unknown) (no date) (unknown) (unknown) tobacco type: cigarettes (units unknown) (unknown) (unknown) (no date) (unknown) (unknown) torsemide 20 mg Tablet (units unknown) (unknown) (unknown) (no date) (unknown) (unknown) torsemide 20 mg tablet 20 mg PO DAILY 07/24/22 07/24/22 (units unknown) (unknown) (unknown) (no date) (unknown) (unknown) trimethoprim [From Bactrim] Allergy Intermediate Rash Verified 02/09/23 18:21 (units unknown) (unknown) (unknown) (no date) (unknown) (unknown) vitamin E 268 mg (400 unit) capsule 400 unit PO DAILY 09/10/18 07/24/22 (units unknown) (unknown) (unknown) (no date) (unknown) (unknown) vitamin E 400 unit Capsule (units unknown) (unknown) (unknown) (no date) (unknown) (unknown) weekly. Her primary care is Dr. Katy Salazar. She has not been following (units unknown) (unknown) (unknown) (no date) (unknown) (unknown) with exertion she has a little bit more shortness of breath. She does not get (units unknown) (unknown) (unknown) (no date) (unknown) (unknown) with pulmonology regularly but has been seen, she sees cardiology. (units unknown) (unknown) Result panel [id number] (unknown) (no date) (unknown) (unknown) 2300 pg/ml (unknown) (unknown) (no date) (unknown) (unknown) 2300 pg/ml (unknown) Result panel [id number] (unknown) (no date) (unknown) (unknown) (no value) (units unknown) (unknown) (unknown) (no date) (unknown) (unknown) (120 mg-180 mg) capsule (Fish Oil) (units unknown) (unknown) (unknown) (no date) (unknown) (unknown) (2.5 mg base)/3 mL nebulization Breath Or Wheezing (units unknown) (unknown) (unknown) (no date) (unknown) (unknown) (Cartia XT) (units unknown) (unknown) (unknown) (no date) (unknown) (unknown) 0.4 mg SUBLINGUAL Q5-15M PRN (Reason: Chest Pain) (units unknown) (unknown) (unknown) (no date) (unknown) (unknown) [id number] (units unknown) (unknown) (unknown) (no date) (unknown) (unknown) 02/09/23 02/09/23 02/09/23 Range/Units (units unknown) (unknown) (unknown) (no date) (unknown) (unknown) 02/09/23 18:21 (units unknown) (unknown) (unknown) (no date) (unknown) (unknown) 02/09/23 18:30 (units unknown) (unknown) (unknown) (no date) (unknown) (unknown) 02/09/23 20:30 (units unknown) (unknown) (unknown) (no date) (unknown) (unknown) 02/09/23 Range/Units (units unknown) (unknown) (unknown) (no date) (unknown) (unknown) 02/09/23 (units unknown) (unknown) (unknown) (no date) (unknown) (unknown) 07/24/22 (units unknown) (unknown) (unknown) (no date) (unknown) (unknown) 1 tab PO DAILY (units unknown) (unknown) (unknown) (no date) (unknown) (unknown) 1,000 mg PO DAILY (units unknown) (unknown) (unknown) (no date) (unknown) (unknown) 1. No acute cardiopulmonary abnormality. (units unknown) (unknown) (unknown) (no date) (unknown) (unknown) 10 mg PO TID PRN (Reason: Muscle Spasm) (units unknown) (unknown) (unknown) (no date) (unknown) (unknown) 10 ml PO PRN (Reason: Cough) (units unknown) (unknown) (unknown) (no date) (unknown) (unknown) 10-100mg/5ml liquid. take 10ml by mouth every 4 hrs as needed for cough (units unknown) (unknown) (unknown) (no date) (unknown) (unknown) 06 of February she is not wheezy initially on exam but had used 2 puffs of her (units unknown) (unknown) (unknown) (no date) (unknown) (unknown) 120 mg PO QAM (units unknown) (unknown) (unknown) (no date) (unknown) (unknown) [address] [place] (units unknown) (unknown) (unknown) (no date) (unknown) (unknown) 18:15 02/09/23 (units unknown) (unknown) (unknown) (no date) (unknown) (unknown) 18:21 (units unknown) (unknown) (unknown) (no date) (unknown) (unknown) 18:30 18:30 18:30 (units unknown) (unknown) (unknown) (no date) (unknown) (unknown) 18:30 (units unknown) (unknown) (unknown) (no date) (unknown) (unknown) 19:18 (units unknown) (unknown) (unknown) (no date) (unknown) (unknown) 2. Stable cardiomegaly.? (units unknown) (unknown) (unknown) (no date) (unknown) (unknown) 20 mg PO DAILY (units unknown) (unknown) (unknown) (no date) (unknown) (unknown) 20 mg PO QAM (units unknown) (unknown) (unknown) (no date) (unknown) (unknown) 25 mg PO DAILY (units unknown) (unknown) (unknown) (no date) (unknown) (unknown) 40 mg PO QAM (units unknown) (unknown) (unknown) (no date) (unknown) (unknown) 40 mg PO QPM (units unknown) (unknown) (unknown) (no date) (unknown) (unknown) 400 unit PO DAILY (units unknown) (unknown) (unknown) (no date) (unknown) (unknown) 75 mg PO QAM (units unknown) (unknown) (unknown) (no date) (unknown) (unknown) 81 mg PO QDAY Qty: 0 (units unknown) (unknown) (unknown) (no date) (unknown) (unknown) 88 mcg PO QAM (units unknown) (unknown) (unknown) (no date) (unknown) (unknown) 90 mcg INHALATION PRN (Reason: Shortness Of Breath) (units unknown) (unknown) (unknown) (no date) (unknown) (unknown) ? (units unknown) (unknown) (unknown) (no date) (unknown) (unknown) ABDOMEN: Soft, nontender. Normoactive bowel sounds all 4 quadrants. No (units unknown) (unknown) (unknown) (no date) (unknown) (unknown) ALT (<35) IU/L (units unknown) (unknown) (unknown) (no date) (unknown) (unknown) ALT 22 (<35) IU/L (units unknown) (unknown) (unknown) (no date) (unknown) (unknown) APTT (26-36) SECONDS (units unknown) (unknown) (unknown) (no date) (unknown) (unknown) APTT 30 (26-36) SECONDS (units unknown) (unknown) (unknown) (no date) (unknown) (unknown) AST (14-36) IU/L (units unknown) (unknown) (unknown) (no date) (unknown) (unknown) AST 28 (14-36) IU/L (units unknown) (unknown) (unknown) (no date) (unknown) (unknown) Accession Number: [id number] ?? (units unknown) (unknown) (unknown) (no date) (unknown) (unknown) Acct:[id number] (units unknown) (unknown) (unknown) (no date) (unknown) (unknown) Age/Sex: 87 / F (units unknown) (unknown) (unknown) (no date) (unknown) (unknown) Albumin (3.5-5.0) g/dL (units unknown) (unknown) (unknown) (no date) (unknown) (unknown) Albumin 4.1 (3.5-5.0) g/dL (units unknown) (unknown) (unknown) (no date) (unknown) (unknown) Albumin/Globulin Ratio (1.0-2.8) (units unknown) (unknown) (unknown) (no date) (unknown) (unknown) Albumin/Globulin Ratio 1.3 (1.0-2.8) (units unknown) (unknown) (unknown) (no date) (unknown) (unknown) Alkaline Phosphatase (38-126) U/L (units unknown) (unknown) (unknown) (no date) (unknown) (unknown) Alkaline Phosphatase 76 (38-126) U/L (units unknown) (unknown) (unknown) (no date) (unknown) (unknown) Allergies (units unknown) (unknown) (unknown) (no date) (unknown) (unknown) Allergy/AdvReac Type Severity Reaction Status Date / Time (units unknown) (unknown) (unknown) (no date) (unknown) (unknown) [place] [address] (units unknown) (unknown) (unknown) (no date) (unknown) (unknown) Aneurysm of infrarenal abdominal aorta (units unknown) (unknown) (unknown) (no date) (unknown) (unknown) Antibiotics) (units unknown) (unknown) (unknown) (no date) (unknown) (unknown) Approved by: Gamaliel Dobbins M.D. on 02/09/2023 at 19:58?? (units unknown) (unknown) (unknown) (no date) (unknown) (unknown) Aspirin (Aspirin 81 Mg Chew Tab) 324 mg PO NOW ONE (units unknown) (unknown) (unknown) (no date) (unknown) (unknown) Attestation: I personally reviewed and interpreted this ECG as follows: (units unknown) (unknown) (unknown) (no date) (unknown) (unknown) BNP [NT-proBNP (BNP-Adult 18+)] Stat (units unknown) (unknown) (unknown) (no date) (unknown) (unknown) BUN (7-17) mg/dL (units unknown) (unknown) (unknown) (no date) (unknown) (unknown) BUN 26 H (7-17) mg/dL (units unknown) (unknown) (unknown) (no date) (unknown) (unknown) BUN/Creatinine Ratio (6-22) (units unknown) (unknown) (unknown) (no date) (unknown) (unknown) BUN/Creatinine Ratio 24.5 H (6-22) (units unknown) (unknown) (unknown) (no date) (unknown) (unknown) Baso # (Auto) (0-100) /uL (units unknown) (unknown) (unknown) (no date) (unknown) (unknown) Baso # (Auto) 100 (0-100) /uL (units unknown) (unknown) (unknown) (no date) (unknown) (unknown) Baso % (Auto) (0-2) % (units unknown) (unknown) (unknown) (no date) (unknown) (unknown) Baso % (Auto) 0.4 (0-2) % (units unknown) (unknown) (unknown) (no date) (unknown) (unknown) Bilateral carpal tunnel syndrome (units unknown) (unknown) (unknown) (no date) (unknown) (unknown) Blood Pressure 141/61 H 02/09/23 18:15 (units unknown) (unknown) (unknown) (no date) (unknown) (unknown) Blood Pressure 141/61 H 132/64 (units unknown) (unknown) (unknown) (no date) (unknown) (unknown) Bones and chest wall:? No suspicious bony lesions.? Overlying soft tissues (units unknown) (unknown) (unknown) (no date) (unknown) (unknown) Breathing (units unknown) (unknown) (unknown) (no date) (unknown) (unknown) CABG, CHF, hypertension, dyslipidemia anticoagulated on aspirin and Plavix. (units unknown) (unknown) (unknown) (no date) (unknown) (unknown) CAD (coronary artery disease) (units unknown) (unknown) (unknown) (no date) (unknown) (unknown) CARDIOVASCULAR: Regular rate and rhythm without murmurs, rubs or gallops. No (units unknown) (unknown) (unknown) (no date) (unknown) (unknown) CK-MB (CK-2) Rel Index TNP (units unknown) (unknown) (unknown) (no date) (unknown) (unknown) CK-MB (CK-2) Rel Index (units unknown) (unknown) (unknown) (no date) (unknown) (unknown) CK-MB (CK-2) TNP (units unknown) (unknown) (unknown) (no date) (unknown) (unknown) CK-MB (CK-2) (units unknown) (unknown) (unknown) (no date) (unknown) (unknown) COMPARISON:[facility], CR, XR CHEST 1V, 12/06/2022, 13:21. (units unknown) (unknown) (unknown) (no date) (unknown) (unknown) COPD (chronic obstructive pulmonary disease) with emphysema (units unknown) (unknown) (unknown) (no date) (unknown) (unknown) COVID19 -Nasal RAPID Stat (units unknown) (unknown) (unknown) (no date) (unknown) (unknown) Calcium (8.4-10.2) mg/dL (units unknown) (unknown) (unknown) (no date) (unknown) (unknown) Calcium 10.0 (8.4-10.2) mg/dL (units unknown) (unknown) (unknown) (no date) (unknown) (unknown) Carbon Dioxide (22-32) mmol/L (units unknown) (unknown) (unknown) (no date) (unknown) (unknown) Carbon Dioxide 33 H (22-32) mmol/L (units unknown) (unknown) (unknown) (no date) (unknown) (unknown) Chest x-ray shows no acute change. BNP is elevated in the 2000 range but is (units unknown) (unknown) (unknown) (no date) (unknown) (unknown) Chest x-ray: (units unknown) (unknown) (unknown) (no date) (unknown) (unknown) Chief Complaint: Chest Pain (units unknown) (unknown) (unknown) (no date) (unknown) (unknown) Chloride (98-107) mmol/L (units unknown) (unknown) (unknown) (no date) (unknown) (unknown) Chloride 95 L (98-107) mmol/L (units unknown) (unknown) (unknown) (no date) (unknown) (unknown) Complete Blood Count AUTO DIFF Stat (units unknown) (unknown) (unknown) (no date) (unknown) (unknown) Comprehensive Metabolic Panel Stat (units unknown) (unknown) (unknown) (no date) (unknown) (unknown) Course (units unknown) (unknown) (unknown) (no date) (unknown) (unknown) Creatinine (0.52-1.04) mg/dL (units unknown) (unknown) (unknown) (no date) (unknown) (unknown) Creatinine 1.06 H (0.52-1.04) mg/dL (units unknown) (unknown) (unknown) (no date) (unknown) (unknown) : 1935 Acct:[id number] (units unknown) (unknown) (unknown) (no date) (unknown) (unknown) : 1935 (units unknown) (unknown) (unknown) (no date) (unknown) (unknown) Date of Service: 02/09/23 (units unknown) (unknown) (unknown) (no date) (unknown) (unknown) Departure (units unknown) (unknown) (unknown) (no date) (unknown) (unknown) Dictated by: Gamaliel Dobbins M.D. on 02/09/2023 at 19:57 ? ? (units unknown) (unknown) (unknown) (no date) (unknown) (unknown) Discharge Plan (units unknown) (unknown) (unknown) (no date) (unknown) (unknown) Discontinued Medications (units unknown) (unknown) (unknown) (no date) (unknown) (unknown) Discussed with patient she does have cardiac risk factors but I suspect her (units unknown) (unknown) (unknown) (no date) (unknown) (unknown) Documented By: KLS (units unknown) (unknown) (unknown) (no date) (unknown) (unknown) ECG Data (units unknown) (unknown) (unknown) (no date) (unknown) (unknown) ED Orders (units unknown) (unknown) (unknown) (no date) (unknown) (unknown) EKG-12 Lead Stat (units unknown) (unknown) (unknown) (no date) (unknown) (unknown) ER Physician: Glo Vela D.O. (units unknown) (unknown) (unknown) (no date) (unknown) (unknown) EXTREMITIES: Normal range of motion, no clubbing or edema. 2+ pulses (units unknown) (unknown) (unknown) (no date) (unknown) (unknown) Elevated TSH (units unknown) (unknown) (unknown) (no date) (unknown) (unknown) Emergency Report (units unknown) (unknown) (unknown) (no date) (unknown) (unknown) Eos # (Auto) (0-450) /uL (units unknown) (unknown) (unknown) (no date) (unknown) (unknown) Eos # (Auto) 100 (0-450) /uL (units unknown) (unknown) (unknown) (no date) (unknown) (unknown) Eos % (Auto) (2-4) % (units unknown) (unknown) (unknown) (no date) (unknown) (unknown) Eos % (Auto) 0.9 L (2-4) % (units unknown) (unknown) (unknown) (no date) (unknown) (unknown) Estimated GFR (>60) mL/min (units unknown) (unknown) (unknown) (no date) (unknown) (unknown) Estimated GFR 51 L (>60) mL/min (units unknown) (unknown) (unknown) (no date) (unknown) (unknown) Exam Narrative: (units unknown) (unknown) (unknown) (no date) (unknown) (unknown) Exam (units unknown) (unknown) (unknown) (no date) (unknown) (unknown) FINDINGS:? (units unknown) (unknown) (unknown) (no date) (unknown) (unknown) Family History (units unknown) (unknown) (unknown) (no date) (unknown) (unknown) Father Lung cancer (units unknown) (unknown) (unknown) (no date) (unknown) (unknown) Flonase 50 mcg (units unknown) (unknown) (unknown) (no date) (unknown) (unknown) Flonase PRN Dry Nasal Passages 07/24/22 (units unknown) (unknown) (unknown) (no date) (unknown) (unknown) GENERAL: Alert and oriented x three, elderly female in no acute distress. (units unknown) (unknown) (unknown) (no date) (unknown) (unknown) : No CVA tenderness (units unknown) (unknown) (unknown) (no date) (unknown) (unknown) General (units unknown) (unknown) (unknown) (no date) (unknown) (unknown) Globulin (1.7-4.1) g/dL (units unknown) (unknown) (unknown) (no date) (unknown) (unknown) Globulin 3.2 (1.7-4.1) g/dL (units unknown) (unknown) (unknown) (no date) (unknown) (unknown) Glucose (80-110) mg/dL (units unknown) (unknown) (unknown) (no date) (unknown) (unknown) Glucose 167 H (80-110) mg/dL (units unknown) (unknown) (unknown) (no date) (unknown) (unknown) H/O hysterectomy with oophorectomy (units unknown) (unknown) (unknown) (no date) (unknown) (unknown) H/O three vessel coronary artery bypass (units unknown) (unknown) (unknown) (no date) (unknown) (unknown) HEENT: Head normocephalic, atraumatic, EOMI, pupils reactive, face symmetric, (units unknown) (unknown) (unknown) (no date) (unknown) (unknown) HPI - Chest Pain (units unknown) (unknown) (unknown) (no date) (unknown) (unknown) HPI narrative: (units unknown) (unknown) (unknown) (no date) (unknown) (unknown) HTN (hypertension) (units unknown) (unknown) (unknown) (no date) (unknown) (unknown) Hct (36-46) % (units unknown) (unknown) (unknown) (no date) (unknown) (unknown) Hct 41.3 (36-46) % (units unknown) (unknown) (unknown) (no date) (unknown) (unknown) Hgb (12.0-16.0) g/dL (units unknown) (unknown) (unknown) (no date) (unknown) (unknown) Hgb 13.8 (12.0-16.0) g/dL (units unknown) (unknown) (unknown) (no date) (unknown) (unknown) History of Present Illness (units unknown) (unknown) (unknown) (no date) (unknown) (unknown) Home Medications (units unknown) (unknown) (unknown) (no date) (unknown) (unknown) Hx of heart artery stent (units unknown) (unknown) (unknown) (no date) (unknown) (unknown) Hyperlipidemia (units unknown) (unknown) (unknown) (no date) (unknown) (unknown) IMPRESSION:? (units unknown) (unknown) (unknown) (no date) (unknown) (unknown) INDICATIONS:? chest pain (units unknown) (unknown) (unknown) (no date) (unknown) (unknown) INHALATION PRN (Reason: Shortness Of Breath Or Wheezing) (units unknown) (unknown) (unknown) (no date) (unknown) (unknown) INR (0.9-1.3) (units unknown) (unknown) (unknown) (no date) (unknown) (unknown) INR 1.1 (0.9-1.3) (units unknown) (unknown) (unknown) (no date) (unknown) (unknown) Imaging Data (units unknown) (unknown) (unknown) (no date) (unknown) (unknown) Initial Vital Signs (units unknown) (unknown) (unknown) (no date) (unknown) (unknown) Initial Vital Signs: (units unknown) (unknown) (unknown) (no date) (unknown) (unknown) Interpretation: (units unknown) (unknown) (unknown) (no date) (unknown) (unknown) [address] [address] (units unknown) (unknown) (unknown) (no date) (unknown) (unknown) [facility] (units unknown) (unknown) (unknown) (no date) (unknown) (unknown) JVD. No swelling bilateral lower extremities. (units unknown) (unknown) (unknown) (no date) (unknown) (unknown) Lab Data (units unknown) (unknown) (unknown) (no date) (unknown) (unknown) Lab Results (units unknown) (unknown) (unknown) (no date) (unknown) (unknown) Labs: (units unknown) (unknown) (unknown) (no date) (unknown) (unknown) Last Admin: 02/09/23 19:28 Dose: Not Given (units unknown) (unknown) (unknown) (no date) (unknown) (unknown) Limitations: no limitations (units unknown) (unknown) (unknown) (no date) (unknown) (unknown) Lipase (23-300) U/L (units unknown) (unknown) (unknown) (no date) (unknown) (unknown) Lipase 45 (23-300) U/L (units unknown) (unknown) (unknown) (no date) (unknown) (unknown) Lipase Stat (units unknown) (unknown) (unknown) (no date) (unknown) (unknown) Loc: ED (units unknown) (unknown) (unknown) (no date) (unknown) (unknown) Lungs and pleura:? Lungs are clear.? No pleural effusions or pneumothorax.? (units unknown) (unknown) (unknown) (no date) (unknown) (unknown) Lymph # (Auto) (5815-1829) /uL (units unknown) (unknown) (unknown) (no date) (unknown) (unknown) Lymph # (Auto) 1200 (3608-9940) /uL (units unknown) (unknown) (unknown) (no date) (unknown) (unknown) Lymph % (Auto) (25-40) % (units unknown) (unknown) (unknown) (no date) (unknown) (unknown) Lymph % (Auto) 9.2 L (25-40) % (units unknown) (unknown) (unknown) (no date) (unknown) (unknown) MCH (26-34) PG (units unknown) (unknown) (unknown) (no date) (unknown) (unknown) MCH 28.7 (26-34) PG (units unknown) (unknown) (unknown) (no date) (unknown) (unknown) MCHC (30-36) % (units unknown) (unknown) (unknown) (no date) (unknown) (unknown) MCHC 33.6 (30-36) % (units unknown) (unknown) (unknown) (no date) (unknown) (unknown) MCV (80-100) fL (units unknown) (unknown) (unknown) (no date) (unknown) (unknown) MCV 85.4 (80-100) fL (units unknown) (unknown) (unknown) (no date) (unknown) (unknown) MDM - Chest Pain (units unknown) (unknown) (unknown) (no date) (unknown) (unknown) MDM Narrative (units unknown) (unknown) (unknown) (no date) (unknown) (unknown) MR#: [id number] (units unknown) (unknown) (unknown) (no date) (unknown) (unknown) Magnesium (1.6-2.3) mg/dL (units unknown) (unknown) (unknown) (no date) (unknown) (unknown) Magnesium 1.9 (1.6-2.3) mg/dL (units unknown) (unknown) (unknown) (no date) (unknown) (unknown) Magnesium Stat (units unknown) (unknown) (unknown) (no date) (unknown) (unknown) Mediastinum:? Normal mediastinal contours.? The aorta is tortuous.? The heart is (units unknown) (unknown) (unknown) (no date) (unknown) (unknown) Medical History (units unknown) (unknown) (unknown) (no date) (unknown) (unknown) Medical decision making narrative: (units unknown) (unknown) (unknown) (no date) (unknown) (unknown) Medication Instructions Recorded Confirmed (units unknown) (unknown) (unknown) (no date) (unknown) (unknown) Mode of arrival: Ambulatory (units unknown) (unknown) (unknown) (no date) (unknown) (unknown) [place] # (Auto) (0-900) /uL (units unknown) (unknown) (unknown) (no date) (unknown) (unknown) [place] # (Auto) 700 (0-900) /uL (units unknown) (unknown) (unknown) (no date) (unknown) (unknown) [place] % (Auto) (3-14) % (units unknown) (unknown) (unknown) (no date) (unknown) (unknown) [place] % (Auto) 5.1 (3-14) % (units unknown) (unknown) (unknown) (no date) (unknown) (unknown) Mother COPD (chronic obstructive pulmonary disease) (units unknown) (unknown) (unknown) (no date) (unknown) (unknown) NECK: Supple, full range of motion (units unknown) (unknown) (unknown) (no date) (unknown) (unknown) NEUROLOGICAL: Cranial nerves II through XII grossly intact. Moving all (units unknown) (unknown) (unknown) (no date) (unknown) (unknown) NT-Pro-B Natriuret Pep (<450) pg/mL (units unknown) (unknown) (unknown) (no date) (unknown) (unknown) NT-Pro-B Natriuret Pep 2300 H (<450) pg/mL (units unknown) (unknown) (unknown) (no date) (unknown) (unknown) Narrative (units unknown) (unknown) (unknown) (no date) (unknown) (unknown) Neut # (Auto) (2801-3440) /uL (units unknown) (unknown) (unknown) (no date) (unknown) (unknown) Neut # (Auto) 54440 H (0021-8306) /uL (units unknown) (unknown) (unknown) (no date) (unknown) (unknown) Neut % (Auto) (50-75) % (units unknown) (unknown) (unknown) (no date) (unknown) (unknown) Neut % (Auto) 84.4 H (50-75) % (units unknown) (unknown) (unknown) (no date) (unknown) (unknown) No Action (units unknown) (unknown) (unknown) (no date) (unknown) (unknown) Ordered: (units unknown) (unknown) (unknown) (no date) (unknown) (unknown) Ordering Provider: Glo Vela D.O. (units unknown) (unknown) (unknown) (no date) (unknown) (unknown) Orders (units unknown) (unknown) (unknown) (no date) (unknown) (unknown) Oxygen Delivery Method Room Air 02/09/23 18:15 (units unknown) (unknown) (unknown) (no date) (unknown) (unknown) Oxygen Delivery Method Room Air Nasal Cannula (units unknown) (unknown) (unknown) (no date) (unknown) (unknown) Oxygen Flow Rate 2 (units unknown) (unknown) (unknown) (no date) (unknown) (unknown) PRN (Reason: Dry Nasal Passages) (units unknown) (unknown) (unknown) (no date) (unknown) (unknown) PROCEDURE:? XR CHEST 1V (units unknown) (unknown) (unknown) (no date) (unknown) (unknown) PT (10.1-12.7) SECONDS (units unknown) (unknown) (unknown) (no date) (unknown) (unknown) PT 12.8 H (10.1-12.7) SECONDS (units unknown) (unknown) (unknown) (no date) (unknown) (unknown) PTT Partial Thromboplastin Jorge Luis Stat (units unknown) (unknown) (unknown) (no date) (unknown) (unknown) Pain (units unknown) (unknown) (unknown) (no date) (unknown) (unknown) Patient Comments: (units unknown) (unknown) (unknown) (no date) (unknown) (unknown) Patient History (units unknown) (unknown) (unknown) (no date) (unknown) (unknown) Patient has sinus rhythm occasional PVC, right bundle-branch, LVH, patient has (units unknown) (unknown) (unknown) (no date) (unknown) (unknown) Patient states that she had stopped her prednisone on the after a recent (units unknown) (unknown) (unknown) (no date) (unknown) (unknown) Patient: Roselyn Mejia MR#: [id number] (units unknown) (unknown) (unknown) (no date) (unknown) (unknown) Patient: Roselyn Mejia (units unknown) (unknown) (unknown) (no date) (unknown) (unknown) Plt Count (150-400) X103/uL (units unknown) (unknown) (unknown) (no date) (unknown) (unknown) Plt Count 244 (150-400) X103/uL (units unknown) (unknown) (unknown) (no date) (unknown) (unknown) Potassium (3.4-5.1) mmol/L (units unknown) (unknown) (unknown) (no date) (unknown) (unknown) Potassium 4.0 (3.4-5.1) mmol/L (units unknown) (unknown) (unknown) (no date) (unknown) (unknown) Prescriptions: (units unknown) (unknown) (unknown) (no date) (unknown) (unknown) Prior ECG tracings: available for review (units unknown) (unknown) (unknown) (no date) (unknown) (unknown) Procedure: XR chest 1V (units unknown) (unknown) (unknown) (no date) (unknown) (unknown) Prothrombin Time INR Stat (units unknown) (unknown) (unknown) (no date) (unknown) (unknown) Pulse Oximetry 96 02/09/23 18:15 (units unknown) (unknown) (unknown) (no date) (unknown) (unknown) Pulse Oximetry 96 94 (units unknown) (unknown) (unknown) (no date) (unknown) (unknown) Pulse Rate 84 02/09/23 18:15 (units unknown) (unknown) (unknown) (no date) (unknown) (unknown) Pulse Rate 84 77 (units unknown) (unknown) (unknown) (no date) (unknown) (unknown) Q-waves 3 and AVF. Lateral leads. Patient has EKG from 12/06/2022 which (units unknown) (unknown) (unknown) (no date) (unknown) (unknown) RBC (4.0-5.2) X106/uL (units unknown) (unknown) (unknown) (no date) (unknown) (unknown) RBC 4.83 (4.0-5.2) X106/uL (units unknown) (unknown) (unknown) (no date) (unknown) (unknown) RDW (11.6-14.8) % (units unknown) (unknown) (unknown) (no date) (unknown) (unknown) RDW 16.3 H (11.6-14.8) % (units unknown) (unknown) (unknown) (no date) (unknown) (unknown) RESPIRATORY: Breath sounds equal bilaterally, no wheezes rales or rhonchi. No (units unknown) (unknown) (unknown) (no date) (unknown) (unknown) ROS Unobtainable: All systems reviewed + are unremarkable except as noted in HPI (units unknown) (unknown) (unknown) (no date) (unknown) (unknown) Radiologist's Impression: (units unknown) (unknown) (unknown) (no date) (unknown) (unknown) Referrals: (units unknown) (unknown) (unknown) (no date) (unknown) (unknown) Related Data (units unknown) (unknown) (unknown) (no date) (unknown) (unknown) Respiratory Rate 20 02/09/23 18:15 (units unknown) (unknown) (unknown) (no date) (unknown) (unknown) Respiratory Rate 20 18 (units unknown) (unknown) (unknown) (no date) (unknown) (unknown) Review of Systems (units unknown) (unknown) (unknown) (no date) (unknown) (unknown) Robitussin DM To Go 10 ml PO PRN Cough 07/24/22 (units unknown) (unknown) (unknown) (no date) (unknown) (unknown) Robitussin DM To Go (units unknown) (unknown) (unknown) (no date) (unknown) (unknown) Rx Instructions: (units unknown) (unknown) (unknown) (no date) (unknown) (unknown) SKIN: Warm, dry, no petechiae, no rashes or lesions. (units unknown) (unknown) (unknown) (no date) (unknown) (unknown) She took took puffs on the way over here and it helped her symptoms. Patient (units unknown) (unknown) (unknown) (no date) (unknown) (unknown) Signed By: (units unknown) (unknown) (unknown) (no date) (unknown) (unknown) Signed (units unknown) (unknown) (unknown) (no date) (unknown) (unknown) Skin (units unknown) (unknown) (unknown) (no date) (unknown) (unknown) Smoking Status: Former smoker (units unknown) (unknown) (unknown) (no date) (unknown) (unknown) Social History (units unknown) (unknown) (unknown) (no date) (unknown) (unknown) Sodium (137-145) mmol/L (units unknown) (unknown) (unknown) (no date) (unknown) (unknown) Sodium 135 L (137-145) mmol/L (units unknown) (unknown) (unknown) (no date) (unknown) (unknown) Source: patient (units unknown) (unknown) (unknown) (no date) (unknown) (unknown) Stated Complaint: has COPD, sent [facility] (units unknown) (unknown) (unknown) (no date) (unknown) (unknown) Status post cholecystectomy (units unknown) (unknown) (unknown) (no date) (unknown) (unknown) Stop: 02/09/23 18:22 (units unknown) (unknown) (unknown) (no date) (unknown) (unknown) Substance Use Type: does not use (units unknown) (unknown) (unknown) (no date) (unknown) (unknown) Sulfa (Sulfonamide Allergy Intermediate rash Verified 02/09/23 18:21 (units unknown) (unknown) (unknown) (no date) (unknown) (unknown) Surgical History (units unknown) (unknown) (unknown) (no date) (unknown) (unknown) Surgical changes and devices:? Status post median sternotomy. (units unknown) (unknown) (unknown) (no date) (unknown) (unknown) TAKE 1 CAPSULE BY MOUTH ONCE DAILY (units unknown) (unknown) (unknown) (no date) (unknown) (unknown) TAKE 1 TABLET BY MOUTH ONCE DAILY IN THE MORNING (units unknown) (unknown) (unknown) (no date) (unknown) (unknown) TAKE 1 TABLET BY MOUTH ONCE DAILY (units unknown) (unknown) (unknown) (no date) (unknown) (unknown) TECHNIQUE:? One view of the chest was acquired.? (units unknown) (unknown) (unknown) (no date) (unknown) (unknown) Temperature 98.1 F 02/09/23 18:15 (units unknown) (unknown) (unknown) (no date) (unknown) (unknown) Temperature 98.1 F (units unknown) (unknown) (unknown) (no date) (unknown) (unknown) They recommended she come for evaluation but also told her to try her inhaler. 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 24 hours a day, (units unknown) (unknown) (unknown) (no date) (unknown) (unknown) Time Seen by Provider: 02/09/23 19:10 (units unknown) (unknown) (unknown) (no date) (unknown) (unknown) Total Bilirubin (0.2-1.3) mg/dL (units unknown) (unknown) (unknown) (no date) (unknown) (unknown) Total Bilirubin 2.7 H (0.2-1.3) mg/dL (units unknown) (unknown) (unknown) (no date) (unknown) (unknown) Total Creatine Kinase (30-135) U/L (units unknown) (unknown) (unknown) (no date) (unknown) (unknown) Total Creatine Kinase 30 (30-135) U/L (units unknown) (unknown) (unknown) (no date) (unknown) (unknown) Total Protein (6.3-8.2) g/dL (units unknown) (unknown) (unknown) (no date) (unknown) (unknown) Total Protein 7.3 (6.3-8.2) g/dL (units unknown) (unknown) (unknown) (no date) (unknown) (unknown) Trop I [Troponin I] Stat (units unknown) (unknown) (unknown) (no date) (unknown) (unknown) Troponin + CK Cardiac Panel Stat (units unknown) (unknown) (unknown) (no date) (unknown) (unknown) Troponin I (0.01-0.034) ng/mL (units unknown) (unknown) (unknown) (no date) (unknown) (unknown) Troponin I 0.017 (0.01-0.034) ng/mL (units unknown) (unknown) (unknown) (no date) (unknown) (unknown) Unstable angina (units unknown) (unknown) (unknown) (no date) (unknown) (unknown) Valvular heart disease (units unknown) (unknown) (unknown) (no date) (unknown) (unknown) Vital Signs - 8 hr (units unknown) (unknown) (unknown) (no date) (unknown) (unknown) Vital Signs (units unknown) (unknown) (unknown) (no date) (unknown) (unknown) Vital signs: (units unknown) (unknown) (unknown) (no date) (unknown) (unknown) WBC (4.5-11.0) X103/uL (units unknown) (unknown) (unknown) (no date) (unknown) (unknown) WBC 12.8 H (4.5-11.0) X103/uL (units unknown) (unknown) (unknown) (no date) (unknown) (unknown) Katy Salazar, WELL TESTING OPERATOR [Primary Care Provider] (units unknown) (unknown) (unknown) (no date) (unknown) (unknown) XR chest 1V Stat (units unknown) (unknown) (unknown) (no date) (unknown) (unknown) XRay Report (units unknown) (unknown) (unknown) (no date) (unknown) (unknown) [Embedded Image Not Available] (units unknown) (unknown) (unknown) (no date) (unknown) (unknown) [From Bactrim] (units unknown) (unknown) (unknown) (no date) (unknown) (unknown) [From Trilipix] Upset (units unknown) (unknown) (unknown) (no date) (unknown) (unknown) acarbose Allergy Intermediate Abdominal Verified 02/09/23 18:21 (units unknown) (unknown) (unknown) (no date) (unknown) (unknown) albuterol 90 mcg/actuation Aerosol (units unknown) (unknown) (unknown) (no date) (unknown) (unknown) albuterol 90 mcg/actuation aerosol 90 mcg inhalation PRN Shortness Of 07/24/22 (units unknown) (unknown) (unknown) (no date) (unknown) (unknown) albuterol just before arriving which he states has significantly improved her (units unknown) (unknown) (unknown) (no date) (unknown) (unknown) alcohol intake frequency: 0-2 drinks per day (units unknown) (unknown) (unknown) (no date) (unknown) (unknown) alcohol intake: never (units unknown) (unknown) (unknown) (no date) (unknown) (unknown) alcohol, no illicit. 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 She notes it got better after she used her (units unknown) (unknown) (unknown) (no date) (unknown) (unknown) and below (units unknown) (unknown) (unknown) (no date) (unknown) (unknown) any new swelling in her extremities. She states she went to the walk-in clinic (units unknown) (unknown) (unknown) (no date) (unknown) (unknown) appear (units unknown) (unknown) (unknown) (no date) (unknown) (unknown) appears similar with no acute or dynamic changes. (units unknown) (unknown) (unknown) (no date) (unknown) (unknown) aspirin 81 MG tablet,delayed release (DR/EC) (units unknown) (unknown) (unknown) (no date) (unknown) (unknown) aspirin 81 mg tablet,delayed 81 mg PO QDAY ##0 09/14/17 07/24/22 (units unknown) (unknown) (unknown) (no date) (unknown) (unknown) atorvastatin 20 mg tablet (Lipitor) 40 mg PO QPM 07/08/22 07/24/22 (units unknown) (unknown) (unknown) (no date) (unknown) (unknown) atorvastatin [Lipitor] 20 mg tablet (units unknown) (unknown) (unknown) (no date) (unknown) (unknown) because she could not get a hold of her primary care at the front office administrator referral. (units unknown) (unknown) (unknown) (no date) (unknown) (unknown) better when she uses her inhaler. She tried to reach her physician was not able (units unknown) (unknown) (unknown) (no date) (unknown) (unknown) bilaterally lower extremities. Neurovascularly intact (units unknown) (unknown) (unknown) (no date) (unknown) (unknown) budesonide [From Symbicort] Allergy Mild Anxiety Verified 02/09/23 18:21 (units unknown) (unknown) (unknown) (no date) (unknown) (unknown) but she is asymptomatic otherwise negative LFTs. Initial troponin is negative. (units unknown) (unknown) (unknown) (no date) (unknown) (unknown) capsule,extended release 24 hr (units unknown) (unknown) (unknown) (no date) (unknown) (unknown) carvedilol Allergy Mild Rash Verified 02/09/23 18:21 (units unknown) (unknown) (unknown) (no date) (unknown) (unknown) chest with exertion. She denies diaphoresis, she states it does seem to get (units unknown) (unknown) (unknown) (no date) (unknown) (unknown) chlorthalidone Allergy Intermediate Redness of Verified 02/09/23 18:21 (units unknown) (unknown) (unknown) (no date) (unknown) (unknown) choline fenofibrate Allergy Mild Gastrointestinal Verified 02/09/23 18:21 (units unknown) (unknown) (unknown) (no date) (unknown) (unknown) clopidogrel 75 mg tablet 75 mg PO QAM 07/24/22 07/24/22 (units unknown) (unknown) (unknown) (no date) (unknown) (unknown) clopidogrel 75 mg tablet (units unknown) (unknown) (unknown) (no date) (unknown) (unknown) cyclobenzaprine 10 mg Tablet (units unknown) (unknown) (unknown) (no date) (unknown) (unknown) cyclobenzaprine 10 mg tablet 10 mg PO TID PRN Muscle Spasm 09/26/22 09/26/22 (units unknown) (unknown) (unknown) (no date) (unknown) (unknown) denies any fevers, no chills, no cold, cough or congestion she is had some more (units unknown) (unknown) (unknown) (no date) (unknown) (unknown) diaphoretic with it. No nausea no vomiting. No abdominal back or flank pain, (units unknown) (unknown) (unknown) (no date) (unknown) (unknown) diltiazem HCl 120 mg 120 mg PO QAM 07/08/22 07/24/22 (units unknown) (unknown) (unknown) (no date) (unknown) (unknown) diltiazem HCl [Cartia XT] 120 mg capsule,extended release 24hr (units unknown) (unknown) (unknown) (no date) (unknown) (unknown) does use Advair twice daily, she states she typically uses her albuterol couple (units unknown) (unknown) (unknown) (no date) (unknown) (unknown) doxazosin [From Cardura] Allergy Intermediate Rash Verified 02/09/23 18:21 (units unknown) (unknown) (unknown) (no date) (unknown) (unknown) doxycycline Allergy Intermediate Rash Verified 02/09/23 18:21 (units unknown) (unknown) (unknown) (no date) (unknown) (unknown) elevated than her usual, normal electrolytes no significant anemia, no (units unknown) (unknown) (unknown) (no date) (unknown) (unknown) enlarged, stable. Interstitial prominence is unchanged compared to the prior (units unknown) (unknown) (unknown) (no date) (unknown) (unknown) evaluation. She has a history significant for COPD on 2 L nasal cannula at all (units unknown) (unknown) (unknown) (no date) (unknown) (unknown) extremities (units unknown) (unknown) (unknown) (no date) (unknown) (unknown) flare. She is had a little bit increased shortness of breath and heaviness in (units unknown) (unknown) (unknown) (no date) (unknown) (unknown) formoterol [From Symbicort] Allergy Mild Anxiety Verified 02/09/23 18:21 (units unknown) (unknown) (unknown) (no date) (unknown) (unknown) frequent belching. She states it is always substernal not radiating it is worse (units unknown) (unknown) (unknown) (no date) (unknown) (unknown) frequently but states no dysuria, urgency or other changes. Patient has not had (units unknown) (unknown) (unknown) (no date) (unknown) (unknown) furosemide 40 mg tablet 40 mg PO QAM 07/08/22 07/08/22 (units unknown) (unknown) (unknown) (no date) (unknown) (unknown) furosemide 40 mg tablet (units unknown) (unknown) (unknown) (no date) (unknown) (unknown) gemfibrozil Allergy Intermediate Rash Verified 02/09/23 18:21 (units unknown) (unknown) (unknown) (no date) (unknown) (unknown) guarding or rebound, rigidity, no mass (units unknown) (unknown) (unknown) (no date) (unknown) (unknown) has some shortness of breath, and does sometimes have a heavy feeling in her (units unknown) (unknown) (unknown) (no date) (unknown) (unknown) her substernal chest for the past 1-2 days and while walking [place] [employer] [place] (units unknown) (unknown) (unknown) (no date) (unknown) (unknown) history. Initial workup CBC, coags, CMP shows creatinine of 1.06 slightly (units unknown) (unknown) (unknown) (no date) (unknown) (unknown) household members: family and children (units unknown) (unknown) (unknown) (no date) (unknown) (unknown) improved from the 5000 range she was at previously. Repeat EKG and troponin (units unknown) (unknown) (unknown) (no date) (unknown) (unknown) inhaler Breath (units unknown) (unknown) (unknown) (no date) (unknown) (unknown) inhaler. She did stop her prednisone on February 06. Patient states she always (units unknown) (unknown) (unknown) (no date) (unknown) (unknown) ipratropium 0.5 mg-albuterol 3 mg ml inhalation PRN Shortness Of 07/24/22 (units unknown) (unknown) (unknown) (no date) (unknown) (unknown) ipratropium-albutero l 0.5 mg-3 mg(2.5 mg base)/3 mL solution for nebulization (units unknown) (unknown) (unknown) (no date) (unknown) (unknown) isosorbide mononitrate 120 mg 120 mg PO QAM 07/08/22 07/24/22 (units unknown) (unknown) (unknown) (no date) (unknown) (unknown) isosorbide mononitrate 120 mg tablet extended release 24 hr (units unknown) (unknown) (unknown) (no date) (unknown) (unknown) leukocytosis, bilirubin slightly elevated 2.7 has been intermittently elevated (units unknown) (unknown) (unknown) (no date) (unknown) (unknown) levofloxacin Allergy Intermediate Rash Verified 02/09/23 18:21 (units unknown) (unknown) (unknown) (no date) (unknown) (unknown) levothyroxine 88 mcg tablet 88 mcg PO QAM 07/08/22 07/24/22 (units unknown) (unknown) (unknown) (no date) (unknown) (unknown) levothyroxine 88 mcg tablet (units unknown) (unknown) (unknown) (no date) (unknown) (unknown) likely chronic.? (units unknown) (unknown) (unknown) (no date) (unknown) (unknown) lisinopril 40 mg tablet 20 mg PO QAM 07/08/22 07/24/22 (units unknown) (unknown) (unknown) (no date) (unknown) (unknown) lisinopril 40 mg tablet (units unknown) (unknown) (unknown) (no date) (unknown) (unknown) losartan Allergy Intermediate Rash Verified 02/09/23 18:21 (units unknown) (unknown) (unknown) (no date) (unknown) (unknown) metoprolol AdvReac Intermediate Verified 02/09/23 18:21 (units unknown) (unknown) (unknown) (no date) (unknown) (unknown) metoprolol succinate 25 mg 25 mg PO DAILY 07/24/22 07/24/22 (units unknown) (unknown) (unknown) (no date) (unknown) (unknown) metoprolol succinate 25 mg tablet extended release 24 hr (units unknown) (unknown) (unknown) (no date) (unknown) (unknown) moist mucous membranes (units unknown) (unknown) (unknown) (no date) (unknown) (unknown) montelukast [From Singulair] Allergy Intermediate Difficulty Verified 02/09/23 (units unknown) (unknown) (unknown) (no date) (unknown) (unknown) morning (units unknown) (unknown) (unknown) (no date) (unknown) (unknown) multiple allergies. She smoked for about 17 years quitting in the 70s. No (units unknown) (unknown) (unknown) (no date) (unknown) (unknown) multivitamin 1 tab PO DAILY 09/10/18 07/24/22 (units unknown) (unknown) (unknown) (no date) (unknown) (unknown) multivitamin Tablet,Chewable (units unknown) (unknown) (unknown) (no date) (unknown) (unknown) nifedipine Allergy Intermediate Chills Verified 02/09/23 18:21 (units unknown) (unknown) (unknown) (no date) (unknown) (unknown) nitroglycerin 0.4 mg sublingual 0.4 mg sublingual Q5-15M PRN Chest 09/10/18 (units unknown) (unknown) (unknown) (no date) (unknown) (unknown) nitroglycerin [Nitrostat] 0.4 mg Tablet, Sublingual (units unknown) (unknown) (unknown) (no date) (unknown) (unknown) no issues with bowel movements. She is on water pills so she urinates (units unknown) (unknown) (unknown) (no date) (unknown) (unknown) omega [id number]-fish oil 1,000 mg 1,000 mg PO DAILY 09/10/18 07/24/22 (units unknown) (unknown) (unknown) (no date) (unknown) (unknown) omega 0-oou-syb-fish oil [Fish Oil] 1,000 mg (120 mg-180 mg) Capsule (units unknown) (unknown) (unknown) (no date) (unknown) (unknown) other day while shopping felt a little bit more heaviness. She did note that (units unknown) (unknown) (unknown) (no date) (unknown) (unknown) patient states she forgets to take (units unknown) (unknown) (unknown) (no date) (unknown) (unknown) pt has not started, it is at the pharmacy for her to picker (units unknown) (unknown) (unknown) (no date) (unknown) (unknown) pt instructed to stop medications. d/c 9/16/22 (units unknown) (unknown) (unknown) (no date) (unknown) (unknown) release (units unknown) (unknown) (unknown) (no date) (unknown) (unknown) she forgets to use her inhaler frequently and has not been using that. She (units unknown) (unknown) (unknown) (no date) (unknown) (unknown) show (units unknown) (unknown) (unknown) (no date) (unknown) (unknown) soln (units unknown) (unknown) (unknown) (no date) (unknown) (unknown) statin medication for hypothyroidism, blood pressure. Patient states she has (units unknown) (unknown) (unknown) (no date) (unknown) (unknown) study and is (units unknown) (unknown) (unknown) (no date) (unknown) (unknown) sulfamethoxazole Allergy Intermediate Rash Verified 02/09/23 18:21 (units unknown) (unknown) (unknown) (no date) (unknown) (unknown) symptoms are more secondary to her airway disease. (units unknown) (unknown) (unknown) (no date) (unknown) (unknown) symptoms. She denies any symptoms currently. Patient does have a cardiac (units unknown) (unknown) (unknown) (no date) (unknown) (unknown) tablet (Nitrostat) Pain (units unknown) (unknown) (unknown) (no date) (unknown) (unknown) tablet,extended release 24 hr (units unknown) (unknown) (unknown) (no date) (unknown) (unknown) tachypnea. Speaks in full sentences. Easy work of breathing. (units unknown) (unknown) (unknown) (no date) (unknown) (unknown) times a week but typically also forgets to use it. She is on aspirin, Plavix, (units unknown) (unknown) (unknown) (no date) (unknown) (unknown) times, CABG, CHF she is on her Advair b.i.d., she has stopped prednisone on the (units unknown) (unknown) (unknown) (no date) (unknown) (unknown) to see them was referred to the walk-in clinic who sent her here for (units unknown) (unknown) (unknown) (no date) (unknown) (unknown) tobacco type: cigarettes (units unknown) (unknown) (unknown) (no date) (unknown) (unknown) torsemide 20 mg Tablet (units unknown) (unknown) (unknown) (no date) (unknown) (unknown) torsemide 20 mg tablet 20 mg PO DAILY 07/24/22 07/24/22 (units unknown) (unknown) (unknown) (no date) (unknown) (unknown) trimethoprim [From Bactrim] Allergy Intermediate Rash Verified 02/09/23 18:21 (units unknown) (unknown) (unknown) (no date) (unknown) (unknown) unremarkable.? (units unknown) (unknown) (unknown) (no date) (unknown) (unknown) vitamin E 268 mg (400 unit) capsule 400 unit PO DAILY 09/10/18 07/24/22 (units unknown) (unknown) (unknown) (no date) (unknown) (unknown) vitamin E 400 unit Capsule (units unknown) (unknown) (unknown) (no date) (unknown) (unknown) weekly. Her primary care is Dr. Katy Salazar. She has not been following (units unknown) (unknown) (unknown) (no date) (unknown) (unknown) with exertion she has a little bit more shortness of breath. She does not get (units unknown) (unknown) (unknown) (no date) (unknown) (unknown) with pulmonology regularly but has been seen, she sees cardiology. (units unknown) (unknown) Result panel [id number] (unknown) (no date) (unknown) (unknown) 0.021 ng/ml (unknown) (unknown) (no date) (unknown) (unknown) 0.021 ng/ml (unknown) Result panel [id number] (unknown) (no date) (unknown) (unknown) (no value) (units unknown) (unknown) (unknown) (no date) (unknown) (unknown) (120 mg-180 mg) capsule (Fish Oil) (units unknown) (unknown) (unknown) (no date) (unknown) (unknown) (2.5 mg base)/3 mL nebulization Breath Or Wheezing (units unknown) (unknown) (unknown) (no date) (unknown) (unknown) (Cartia XT) (units unknown) (unknown) (unknown) (no date) (unknown) (unknown) 0.4 mg SUBLINGUAL Q5-15M PRN (Reason: Chest Pain) (units unknown) (unknown) (unknown) (no date) (unknown) (unknown) [id number] (units unknown) (unknown) (unknown) (no date) (unknown) (unknown) 02/09/23 02/09/23 02/09/23 Range/Units (units unknown) (unknown) (unknown) (no date) (unknown) (unknown) 02/09/23 02/09/23 Range/Units (units unknown) (unknown) (unknown) (no date) (unknown) (unknown) 02/09/23 18:21 (units unknown) (unknown) (unknown) (no date) (unknown) (unknown) 02/09/23 18:30 (units unknown) (unknown) (unknown) (no date) (unknown) (unknown) 02/09/23 20:30 (units unknown) (unknown) (unknown) (no date) (unknown) (unknown) 02/09/23 21:00 (units unknown) (unknown) (unknown) (no date) (unknown) (unknown) 02/09/23 (units unknown) (unknown) (unknown) (no date) (unknown) (unknown) 07/24/22 (units unknown) (unknown) (unknown) (no date) (unknown) (unknown) 1 tab PO DAILY (units unknown) (unknown) (unknown) (no date) (unknown) (unknown) 1,000 mg PO DAILY (units unknown) (unknown) (unknown) (no date) (unknown) (unknown) 1. No acute cardiopulmonary abnormality. (units unknown) (unknown) (unknown) (no date) (unknown) (unknown) 10 mg PO TID PRN (Reason: Muscle Spasm) (units unknown) (unknown) (unknown) (no date) (unknown) (unknown) 10 ml PO PRN (Reason: Cough) (units unknown) (unknown) (unknown) (no date) (unknown) (unknown) 10-100mg/5ml liquid. take 10ml by mouth every 4 hrs as needed for cough (units unknown) (unknown) (unknown) (no date) (unknown) (unknown) 06 of February she is not wheezy initially on exam but had used 2 puffs of her (units unknown) (unknown) (unknown) (no date) (unknown) (unknown) 120 mg PO QAM (units unknown) (unknown) (unknown) (no date) (unknown) (unknown) [address] (units unknown) (unknown) (unknown) (no date) (unknown) (unknown) 18:15 02/09/23 (units unknown) (unknown) (unknown) (no date) (unknown) (unknown) 18:21 (units unknown) (unknown) (unknown) (no date) (unknown) (unknown) 18:30 18:30 18:30 (units unknown) (unknown) (unknown) (no date) (unknown) (unknown) 18:30 20:30 (units unknown) (unknown) (unknown) (no date) (unknown) (unknown) 19:18 (units unknown) (unknown) (unknown) (no date) (unknown) (unknown) 2. Stable cardiomegaly.? (units unknown) (unknown) (unknown) (no date) (unknown) (unknown) 20 mg PO DAILY (units unknown) (unknown) (unknown) (no date) (unknown) (unknown) 20 mg PO QAM (units unknown) (unknown) (unknown) (no date) (unknown) (unknown) 25 mg PO DAILY (units unknown) (unknown) (unknown) (no date) (unknown) (unknown) 40 mg PO QAM (units unknown) (unknown) (unknown) (no date) (unknown) (unknown) 40 mg PO QPM (units unknown) (unknown) (unknown) (no date) (unknown) (unknown) 400 unit PO DAILY (units unknown) (unknown) (unknown) (no date) (unknown) (unknown) 74 SC 172 QRS of 158 QTC of 479. Patient does have Q-wave in lead 3 and AVF. (units unknown) (unknown) (unknown) (no date) (unknown) (unknown) 75 mg PO QAM (units unknown) (unknown) (unknown) (no date) (unknown) (unknown) 81 mg PO QDAY Qty: 0 (units unknown) (unknown) (unknown) (no date) (unknown) (unknown) 88 mcg PO QAM (units unknown) (unknown) (unknown) (no date) (unknown) (unknown) 90 mcg INHALATION PRN (Reason: Shortness Of Breath) (units unknown) (unknown) (unknown) (no date) (unknown) (unknown) ? (units unknown) (unknown) (unknown) (no date) (unknown) (unknown) ABDOMEN: Soft, nontender. Normoactive bowel sounds all 4 quadrants. No (units unknown) (unknown) (unknown) (no date) (unknown) (unknown) ALT (<35) IU/L (units unknown) (unknown) (unknown) (no date) (unknown) (unknown) ALT 22 (<35) IU/L (units unknown) (unknown) (unknown) (no date) (unknown) (unknown) APTT (26-36) SECONDS (units unknown) (unknown) (unknown) (no date) (unknown) (unknown) APTT 30 (26-36) SECONDS (units unknown) (unknown) (unknown) (no date) (unknown) (unknown) AST (14-36) IU/L (units unknown) (unknown) (unknown) (no date) (unknown) (unknown) AST 28 (14-36) IU/L (units unknown) (unknown) (unknown) (no date) (unknown) (unknown) Accession Number: [id number] ?? (units unknown) (unknown) (unknown) (no date) (unknown) (unknown) Acct:[id number] (units unknown) (unknown) (unknown) (no date) (unknown) (unknown) Activity Restrictions/Additio nal Instructions: (units unknown) (unknown) (unknown) (no date) (unknown) (unknown) Acute exacerbation of chronic obstructive pulmonary disease (units unknown) (unknown) (unknown) (no date) (unknown) (unknown) Age/Sex: 87 / F (units unknown) (unknown) (unknown) (no date) (unknown) (unknown) Albumin (3.5-5.0) g/dL (units unknown) (unknown) (unknown) (no date) (unknown) (unknown) Albumin 4.1 (3.5-5.0) g/dL (units unknown) (unknown) (unknown) (no date) (unknown) (unknown) Albumin/Globulin Ratio (1.0-2.8) (units unknown) (unknown) (unknown) (no date) (unknown) (unknown) Albumin/Globulin Ratio 1.3 (1.0-2.8) (units unknown) (unknown) (unknown) (no date) (unknown) (unknown) Alkaline Phosphatase (38-126) U/L (units unknown) (unknown) (unknown) (no date) (unknown) (unknown) Alkaline Phosphatase 76 (38-126) U/L (units unknown) (unknown) (unknown) (no date) (unknown) (unknown) Allergies (units unknown) (unknown) (unknown) (no date) (unknown) (unknown) Allergy/AdvReac Type Severity Reaction Status Date / Time (units unknown) (unknown) (unknown) (no date) (unknown) (unknown) [place] [address] (units unknown) (unknown) (unknown) (no date) (unknown) (unknown) Aneurysm of infrarenal abdominal aorta (units unknown) (unknown) (unknown) (no date) (unknown) (unknown) Antibiotics) (units unknown) (unknown) (unknown) (no date) (unknown) (unknown) Approved by: Gamaliel Dobbins M.D. on 02/09/2023 at 19:58?? (units unknown) (unknown) (unknown) (no date) (unknown) (unknown) Aspirin (Aspirin 81 Mg Chew Tab) 324 mg PO NOW ONE (units unknown) (unknown) (unknown) (no date) (unknown) (unknown) Attestation: I personally reviewed and interpreted this ECG as follows: (units unknown) (unknown) (unknown) (no date) (unknown) (unknown) BNP [NT-proBNP (BNP-Adult 18+)] Stat (units unknown) (unknown) (unknown) (no date) (unknown) (unknown) BUN (7-17) mg/dL (units unknown) (unknown) (unknown) (no date) (unknown) (unknown) BUN 26 H (7-17) mg/dL (units unknown) (unknown) (unknown) (no date) (unknown) (unknown) BUN/Creatinine Ratio (6-22) (units unknown) (unknown) (unknown) (no date) (unknown) (unknown) BUN/Creatinine Ratio 24.5 H (6-22) (units unknown) (unknown) (unknown) (no date) (unknown) (unknown) Baso # (Auto) (0-100) /uL (units unknown) (unknown) (unknown) (no date) (unknown) (unknown) Baso # (Auto) 100 (0-100) /uL (units unknown) (unknown) (unknown) (no date) (unknown) (unknown) Baso % (Auto) (0-2) % (units unknown) (unknown) (unknown) (no date) (unknown) (unknown) Baso % (Auto) 0.4 (0-2) % (units unknown) (unknown) (unknown) (no date) (unknown) (unknown) Bilateral carpal tunnel syndrome (units unknown) (unknown) (unknown) (no date) (unknown) (unknown) Blood Pressure 141/61 H 02/09/23 18:15 (units unknown) (unknown) (unknown) (no date) (unknown) (unknown) Blood Pressure 141/61 H 132/64 (units unknown) (unknown) (unknown) (no date) (unknown) (unknown) Bones and chest wall:? No suspicious bony lesions.? Overlying soft tissues (units unknown) (unknown) (unknown) (no date) (unknown) (unknown) Breathing (units unknown) (unknown) (unknown) (no date) (unknown) (unknown) CABG, CHF, hypertension, dyslipidemia anticoagulated on aspirin and Plavix. (units unknown) (unknown) (unknown) (no date) (unknown) (unknown) CAD (coronary artery disease) (units unknown) (unknown) (unknown) (no date) (unknown) (unknown) CARDIOVASCULAR: Regular rate and rhythm without murmurs, rubs or gallops. No (units unknown) (unknown) (unknown) (no date) (unknown) (unknown) CK-MB (CK-2) Rel Index TNP (units unknown) (unknown) (unknown) (no date) (unknown) (unknown) CK-MB (CK-2) Rel Index (units unknown) (unknown) (unknown) (no date) (unknown) (unknown) CK-MB (CK-2) TNP (units unknown) (unknown) (unknown) (no date) (unknown) (unknown) CK-MB (CK-2) (units unknown) (unknown) (unknown) (no date) (unknown) (unknown) COMPARISON:[facility], CR, XR CHEST 1V, 12/06/2022, 13:21. (units unknown) (unknown) (unknown) (no date) (unknown) (unknown) COPD (chronic obstructive pulmonary disease) with emphysema (units unknown) (unknown) (unknown) (no date) (unknown) (unknown) COVID19 -Nasal RAPID Stat (units unknown) (unknown) (unknown) (no date) (unknown) (unknown) Calcium (8.4-10.2) mg/dL (units unknown) (unknown) (unknown) (no date) (unknown) (unknown) Calcium 10.0 (8.4-10.2) mg/dL (units unknown) (unknown) (unknown) (no date) (unknown) (unknown) Carbon Dioxide (22-32) mmol/L (units unknown) (unknown) (unknown) (no date) (unknown) (unknown) Carbon Dioxide 33 H (22-32) mmol/L (units unknown) (unknown) (unknown) (no date) (unknown) (unknown) Chest x-ray shows no acute change. BNP is elevated in the 2000 range but is (units unknown) (unknown) (unknown) (no date) (unknown) (unknown) Chest x-ray: (units unknown) (unknown) (unknown) (no date) (unknown) (unknown) Chief Complaint: Chest Pain (units unknown) (unknown) (unknown) (no date) (unknown) (unknown) Chloride (98-107) mmol/L (units unknown) (unknown) (unknown) (no date) (unknown) (unknown) Chloride 95 L (98-107) mmol/L (units unknown) (unknown) (unknown) (no date) (unknown) (unknown) Clinical Impression: (units unknown) (unknown) (unknown) (no date) (unknown) (unknown) Complete Blood Count AUTO DIFF Stat (units unknown) (unknown) (unknown) (no date) (unknown) (unknown) Comprehensive Metabolic Panel Stat (units unknown) (unknown) (unknown) (no date) (unknown) (unknown) Continue to use her albuterol you can do 2 puffs every 4 hours as needed. (units unknown) (unknown) (unknown) (no date) (unknown) (unknown) Continue your home medications as prescribed. (units unknown) (unknown) (unknown) (no date) (unknown) (unknown) Course (units unknown) (unknown) (unknown) (no date) (unknown) (unknown) Creatinine (0.52-1.04) mg/dL (units unknown) (unknown) (unknown) (no date) (unknown) (unknown) Creatinine 1.06 H (0.52-1.04) mg/dL (units unknown) (unknown) (unknown) (no date) (unknown) (unknown) : 1935 Acct:[id number] (units unknown) (unknown) (unknown) (no date) (unknown) (unknown) : 1935 (units unknown) (unknown) (unknown) (no date) (unknown) (unknown) Date of Service: 02/09/23 (units unknown) (unknown) (unknown) (no date) (unknown) (unknown) Departure (units unknown) (unknown) (unknown) (no date) (unknown) (unknown) Dictated by: Gamaliel Dobbins M.D. on 02/09/2023 at 19:57 ? ? (units unknown) (unknown) (unknown) (no date) (unknown) (unknown) Discharge Plan (units unknown) (unknown) (unknown) (no date) (unknown) (unknown) Discontinued Medications (units unknown) (unknown) (unknown) (no date) (unknown) (unknown) Discussed with patient she does have cardiac risk factors but I suspect her (units unknown) (unknown) (unknown) (no date) (unknown) (unknown) Documented By: BO (units unknown) (unknown) (unknown) (no date) (unknown) (unknown) ECG Data (units unknown) (unknown) (unknown) (no date) (unknown) (unknown) ED Orders (units unknown) (unknown) (unknown) (no date) (unknown) (unknown) EKG-12 Lead Stat (units unknown) (unknown) (unknown) (no date) (unknown) (unknown) EKG2/sinus rhythm, premature atrial complex, right bundle-branch, LVH. Rate of (units unknown) (unknown) (unknown) (no date) (unknown) (unknown) ER Physician: Glo Vela D.O. (units unknown) (unknown) (unknown) (no date) (unknown) (unknown) EXTREMITIES: Normal range of motion, no clubbing or edema. 2+ pulses (units unknown) (unknown) (unknown) (no date) (unknown) (unknown) Elevated TSH (units unknown) (unknown) (unknown) (no date) (unknown) (unknown) Emergency Report (units unknown) (unknown) (unknown) (no date) (unknown) (unknown) Eos # (Auto) (0-450) /uL (units unknown) (unknown) (unknown) (no date) (unknown) (unknown) Eos # (Auto) 100 (0-450) /uL (units unknown) (unknown) (unknown) (no date) (unknown) (unknown) Eos % (Auto) (2-4) % (units unknown) (unknown) (unknown) (no date) (unknown) (unknown) Eos % (Auto) 0.9 L (2-4) % (units unknown) (unknown) (unknown) (no date) (unknown) (unknown) Estimated GFR (>60) mL/min (units unknown) (unknown) (unknown) (no date) (unknown) (unknown) Estimated GFR 51 L (>60) mL/min (units unknown) (unknown) (unknown) (no date) (unknown) (unknown) Exam Narrative: (units unknown) (unknown) (unknown) (no date) (unknown) (unknown) Exam (units unknown) (unknown) (unknown) (no date) (unknown) (unknown) FINDINGS:? (units unknown) (unknown) (unknown) (no date) (unknown) (unknown) Family History (units unknown) (unknown) (unknown) (no date) (unknown) (unknown) Father Lung cancer (units unknown) (unknown) (unknown) (no date) (unknown) (unknown) Flonase 50 mcg (units unknown) (unknown) (unknown) (no date) (unknown) (unknown) Flonase PRN Dry Nasal Passages 07/24/22 (units unknown) (unknown) (unknown) (no date) (unknown) (unknown) GENERAL: Alert and oriented x three, elderly female in no acute distress. (units unknown) (unknown) (unknown) (no date) (unknown) (unknown) : No CVA tenderness (units unknown) (unknown) (unknown) (no date) (unknown) (unknown) General (units unknown) (unknown) (unknown) (no date) (unknown) (unknown) Globulin (1.7-4.1) g/dL (units unknown) (unknown) (unknown) (no date) (unknown) (unknown) Globulin 3.2 (1.7-4.1) g/dL (units unknown) (unknown) (unknown) (no date) (unknown) (unknown) Glucose (80-110) mg/dL (units unknown) (unknown) (unknown) (no date) (unknown) (unknown) Glucose 167 H (80-110) mg/dL (units unknown) (unknown) (unknown) (no date) (unknown) (unknown) H/O hysterectomy with oophorectomy (units unknown) (unknown) (unknown) (no date) (unknown) (unknown) H/O three vessel coronary artery bypass (units unknown) (unknown) (unknown) (no date) (unknown) (unknown) HEENT: Head normocephalic, atraumatic, EOMI, pupils reactive, face symmetric, (units unknown) (unknown) (unknown) (no date) (unknown) (unknown) HPI - Chest Pain (units unknown) (unknown) (unknown) (no date) (unknown) (unknown) HPI narrative: (units unknown) (unknown) (unknown) (no date) (unknown) (unknown) HTN (hypertension) (units unknown) (unknown) (unknown) (no date) (unknown) (unknown) Hct (36-46) % (units unknown) (unknown) (unknown) (no date) (unknown) (unknown) Hct 41.3 (36-46) % (units unknown) (unknown) (unknown) (no date) (unknown) (unknown) Hgb (12.0-16.0) g/dL (units unknown) (unknown) (unknown) (no date) (unknown) (unknown) Hgb 13.8 (12.0-16.0) g/dL (units unknown) (unknown) (unknown) (no date) (unknown) (unknown) History of Present Illness (units unknown) (unknown) (unknown) (no date) (unknown) (unknown) Home Medications (units unknown) (unknown) (unknown) (no date) (unknown) (unknown) Hx of heart artery stent (units unknown) (unknown) (unknown) (no date) (unknown) (unknown) Hyperlipidemia (units unknown) (unknown) (unknown) (no date) (unknown) (unknown) IMPRESSION:? (units unknown) (unknown) (unknown) (no date) (unknown) (unknown) INDICATIONS:? chest pain (units unknown) (unknown) (unknown) (no date) (unknown) (unknown) INHALATION PRN (Reason: Shortness Of Breath Or Wheezing) (units unknown) (unknown) (unknown) (no date) (unknown) (unknown) INR (0.9-1.3) (units unknown) (unknown) (unknown) (no date) (unknown) (unknown) INR 1.1 (0.9-1.3) (units unknown) (unknown) (unknown) (no date) (unknown) (unknown) If you are needing to use your albuterol more than 1 or 2 times daily or have (units unknown) (unknown) (unknown) (no date) (unknown) (unknown) Imaging Data (units unknown) (unknown) (unknown) (no date) (unknown) (unknown) Initial Vital Signs (units unknown) (unknown) (unknown) (no date) (unknown) (unknown) Initial Vital Signs: (units unknown) (unknown) (unknown) (no date) (unknown) (unknown) Instructions: Chronic Obstructive Pulmonary Disease (Alternative Therapy) (units unknown) (unknown) (unknown) (no date) (unknown) (unknown) Interpretation: (units unknown) (unknown) (unknown) (no date) (unknown) (unknown) [address] [address] (units unknown) (unknown) (unknown) (no date) (unknown) (unknown) [facility] (units unknown) (unknown) (unknown) (no date) (unknown) (unknown) JVD. No swelling bilateral lower extremities. (units unknown) (unknown) (unknown) (no date) (unknown) (unknown) Lab Data (units unknown) (unknown) (unknown) (no date) (unknown) (unknown) Lab Results (units unknown) (unknown) (unknown) (no date) (unknown) (unknown) Labs: (units unknown) (unknown) (unknown) (no date) (unknown) (unknown) Last Admin: 02/09/23 19:28 Dose: Not Given (units unknown) (unknown) (unknown) (no date) (unknown) (unknown) Lateral leads this appears similar to today's earlier EKG and prior. (units unknown) (unknown) (unknown) (no date) (unknown) (unknown) Limitations: no limitations (units unknown) (unknown) (unknown) (no date) (unknown) (unknown) Lipase (23-300) U/L (units unknown) (unknown) (unknown) (no date) (unknown) (unknown) Lipase 45 (23-300) U/L (units unknown) (unknown) (unknown) (no date) (unknown) (unknown) Lipase Stat (units unknown) (unknown) (unknown) (no date) (unknown) (unknown) Loc: ED (units unknown) (unknown) (unknown) (no date) (unknown) (unknown) Lungs and pleura:? Lungs are clear.? No pleural effusions or pneumothorax.? (units unknown) (unknown) (unknown) (no date) (unknown) (unknown) Lymph # (Auto) (0812-0292) /uL (units unknown) (unknown) (unknown) (no date) (unknown) (unknown) Lymph # (Auto) 1200 (4759-5657) /uL (units unknown) (unknown) (unknown) (no date) (unknown) (unknown) Lymph % (Auto) (25-40) % (units unknown) (unknown) (unknown) (no date) (unknown) (unknown) Lymph % (Auto) 9.2 L (25-40) % (units unknown) (unknown) (unknown) (no date) (unknown) (unknown) MCH (26-34) PG (units unknown) (unknown) (unknown) (no date) (unknown) (unknown) MCH 28.7 (26-34) PG (units unknown) (unknown) (unknown) (no date) (unknown) (unknown) MCHC (30-36) % (units unknown) (unknown) (unknown) (no date) (unknown) (unknown) MCHC 33.6 (30-36) % (units unknown) (unknown) (unknown) (no date) (unknown) (unknown) MCV (80-100) fL (units unknown) (unknown) (unknown) (no date) (unknown) (unknown) MCV 85.4 (80-100) fL (units unknown) (unknown) (unknown) (no date) (unknown) (unknown) MDM - Chest Pain (units unknown) (unknown) (unknown) (no date) (unknown) (unknown) MDM Narrative (units unknown) (unknown) (unknown) (no date) (unknown) (unknown) MR#: [id number] (units unknown) (unknown) (unknown) (no date) (unknown) (unknown) Magnesium (1.6-2.3) mg/dL (units unknown) (unknown) (unknown) (no date) (unknown) (unknown) Magnesium 1.9 (1.6-2.3) mg/dL (units unknown) (unknown) (unknown) (no date) (unknown) (unknown) Magnesium Stat (units unknown) (unknown) (unknown) (no date) (unknown) (unknown) Mediastinum:? Normal mediastinal contours.? The aorta is tortuous.? The heart is (units unknown) (unknown) (unknown) (no date) (unknown) (unknown) Medical History (Updated 02/09/23 @ 21:15 by Glo Vela DO) (units unknown) (unknown) (unknown) (no date) (unknown) (unknown) Medical decision making narrative: (units unknown) (unknown) (unknown) (no date) (unknown) (unknown) Medication Instructions Recorded Confirmed (units unknown) (unknown) (unknown) (no date) (unknown) (unknown) Mode of arrival: Ambulatory (units unknown) (unknown) (unknown) (no date) (unknown) (unknown) [place] # (Auto) (0-900) /uL (units unknown) (unknown) (unknown) (no date) (unknown) (unknown) [place] # (Auto) 700 (0-900) /uL (units unknown) (unknown) (unknown) (no date) (unknown) (unknown) [place] % (Auto) (3-14) % (units unknown) (unknown) (unknown) (no date) (unknown) (unknown) [place] % (Auto) 5.1 (3-14) % (units unknown) (unknown) (unknown) (no date) (unknown) (unknown) Mother COPD (chronic obstructive pulmonary disease) (units unknown) (unknown) (unknown) (no date) (unknown) (unknown) NECK: Supple, full range of motion (units unknown) (unknown) (unknown) (no date) (unknown) (unknown) NEUROLOGICAL: Cranial nerves II through XII grossly intact. Moving all (units unknown) (unknown) (unknown) (no date) (unknown) (unknown) NT-Pro-B Natriuret Pep (<450) pg/mL (units unknown) (unknown) (unknown) (no date) (unknown) (unknown) NT-Pro-B Natriuret Pep 2300 H (<450) pg/mL (units unknown) (unknown) (unknown) (no date) (unknown) (unknown) Narrative (units unknown) (unknown) (unknown) (no date) (unknown) (unknown) Neut # (Auto) (6634-9547) /uL (units unknown) (unknown) (unknown) (no date) (unknown) (unknown) Neut # (Auto) 72109 H (5627-9791) /uL (units unknown) (unknown) (unknown) (no date) (unknown) (unknown) Neut % (Auto) (50-75) % (units unknown) (unknown) (unknown) (no date) (unknown) (unknown) Neut % (Auto) 84.4 H (50-75) % (units unknown) (unknown) (unknown) (no date) (unknown) (unknown) No Action (units unknown) (unknown) (unknown) (no date) (unknown) (unknown) Ordered: (units unknown) (unknown) (unknown) (no date) (unknown) (unknown) Ordering Provider: Glo Vela D.O. (units unknown) (unknown) (unknown) (no date) (unknown) (unknown) Orders (units unknown) (unknown) (unknown) (no date) (unknown) (unknown) Oxygen Delivery Method Room Air 02/09/23 18:15 (units unknown) (unknown) (unknown) (no date) (unknown) (unknown) Oxygen Delivery Method Room Air Nasal Cannula (units unknown) (unknown) (unknown) (no date) (unknown) (unknown) Oxygen Flow Rate 2 (units unknown) (unknown) (unknown) (no date) (unknown) (unknown) PRN (Reason: Dry Nasal Passages) (units unknown) (unknown) (unknown) (no date) (unknown) (unknown) PROCEDURE:? XR CHEST 1V (units unknown) (unknown) (unknown) (no date) (unknown) (unknown) PT (10.1-12.7) SECONDS (units unknown) (unknown) (unknown) (no date) (unknown) (unknown) PT 12.8 H (10.1-12.7) SECONDS (units unknown) (unknown) (unknown) (no date) (unknown) (unknown) PTT Partial Thromboplastin Jorge Luis Stat (units unknown) (unknown) (unknown) (no date) (unknown) (unknown) Pain (units unknown) (unknown) (unknown) (no date) (unknown) (unknown) Patient Comments: (units unknown) (unknown) (unknown) (no date) (unknown) (unknown) Patient Disposition: Home (units unknown) (unknown) (unknown) (no date) (unknown) (unknown) Patient History (units unknown) (unknown) (unknown) (no date) (unknown) (unknown) Patient has sinus rhythm occasional PVC, right bundle-branch, LVH, patient has (units unknown) (unknown) (unknown) (no date) (unknown) (unknown) Patient states that she had stopped her prednisone on the after a recent (units unknown) (unknown) (unknown) (no date) (unknown) (unknown) Patient: Roselyn Mejia MR#: [id number] (units unknown) (unknown) (unknown) (no date) (unknown) (unknown) Patient: Roselyn Mejia (units unknown) (unknown) (unknown) (no date) (unknown) (unknown) Please follow-up for recheck. (units unknown) (unknown) (unknown) (no date) (unknown) (unknown) Please return for new or worsening chest pain or pressure, shortness of breath, (units unknown) (unknown) (unknown) (no date) (unknown) (unknown) Plt Count (150-400) X103/uL (units unknown) (unknown) (unknown) (no date) (unknown) (unknown) Plt Count 244 (150-400) X103/uL (units unknown) (unknown) (unknown) (no date) (unknown) (unknown) Potassium (3.4-5.1) mmol/L (units unknown) (unknown) (unknown) (no date) (unknown) (unknown) Potassium 4.0 (3.4-5.1) mmol/L (units unknown) (unknown) (unknown) (no date) (unknown) (unknown) Prescription sent to (units unknown) (unknown) (unknown) (no date) (unknown) (unknown) Prescriptions: (units unknown) (unknown) (unknown) (no date) (unknown) (unknown) Prior ECG tracings: available for review (units unknown) (unknown) (unknown) (no date) (unknown) (unknown) Procedure: XR chest 1V (units unknown) (unknown) (unknown) (no date) (unknown) (unknown) Prothrombin Time INR Stat (units unknown) (unknown) (unknown) (no date) (unknown) (unknown) Pulse Oximetry 96 02/09/23 18:15 (units unknown) (unknown) (unknown) (no date) (unknown) (unknown) Pulse Oximetry 96 94 (units unknown) (unknown) (unknown) (no date) (unknown) (unknown) Pulse Rate 84 02/09/23 18:15 (units unknown) (unknown) (unknown) (no date) (unknown) (unknown) Pulse Rate 84 77 (units unknown) (unknown) (unknown) (no date) (unknown) (unknown) Q-waves 3 and AVF. Lateral leads. Patient has EKG from 12/06/2022 which (units unknown) (unknown) (unknown) (no date) (unknown) (unknown) RBC (4.0-5.2) X106/uL (units unknown) (unknown) (unknown) (no date) (unknown) (unknown) RBC 4.83 (4.0-5.2) X106/uL (units unknown) (unknown) (unknown) (no date) (unknown) (unknown) RDW (11.6-14.8) % (units unknown) (unknown) (unknown) (no date) (unknown) (unknown) RDW 16.3 H (11.6-14.8) % (units unknown) (unknown) (unknown) (no date) (unknown) (unknown) RESPIRATORY: Breath sounds equal bilaterally, no wheezes rales or rhonchi. No (units unknown) (unknown) (unknown) (no date) (unknown) (unknown) ROS Unobtainable: All systems reviewed + are unremarkable except as noted in HPI (units unknown) (unknown) (unknown) (no date) (unknown) (unknown) Radiologist's Impression: (units unknown) (unknown) (unknown) (no date) (unknown) (unknown) Referrals: (units unknown) (unknown) (unknown) (no date) (unknown) (unknown) Related Data (units unknown) (unknown) (unknown) (no date) (unknown) (unknown) Respiratory Rate 20 02/09/23 18:15 (units unknown) (unknown) (unknown) (no date) (unknown) (unknown) Respiratory Rate 20 18 (units unknown) (unknown) (unknown) (no date) (unknown) (unknown) Review of Systems (units unknown) (unknown) (unknown) (no date) (unknown) (unknown) Robitussin DM To Go 10 ml PO PRN Cough 07/24/22 (units unknown) (unknown) (unknown) (no date) (unknown) (unknown) Robitussin DM To Go (units unknown) (unknown) (unknown) (no date) (unknown) (unknown) Rx Instructions: (units unknown) (unknown) (unknown) (no date) (unknown) (unknown) SKIN: Warm, dry, no petechiae, no rashes or lesions. (units unknown) (unknown) (unknown) (no date) (unknown) (unknown) She took took puffs on the way over here and it helped her symptoms. Patient (units unknown) (unknown) (unknown) (no date) (unknown) (unknown) Signed By: (units unknown) (unknown) (unknown) (no date) (unknown) (unknown) Signed (units unknown) (unknown) (unknown) (no date) (unknown) (unknown) Skin (units unknown) (unknown) (unknown) (no date) (unknown) (unknown) Smoking Status: Former smoker (units unknown) (unknown) (unknown) (no date) (unknown) (unknown) Social History (units unknown) (unknown) (unknown) (no date) (unknown) (unknown) Sodium (137-145) mmol/L (units unknown) (unknown) (unknown) (no date) (unknown) (unknown) Sodium 135 L (137-145) mmol/L (units unknown) (unknown) (unknown) (no date) (unknown) (unknown) Source: patient (units unknown) (unknown) (unknown) (no date) (unknown) (unknown) Stand Alone Forms: Patient Portal/API (units unknown) (unknown) (unknown) (no date) (unknown) (unknown) Stated Complaint: has COPD, sent [facility] (units unknown) (unknown) (unknown) (no date) (unknown) (unknown) Status post cholecystectomy (units unknown) (unknown) (unknown) (no date) (unknown) (unknown) Stop: 02/09/23 18:22 (units unknown) (unknown) (unknown) (no date) (unknown) (unknown) Substance Use Type: does not use (units unknown) (unknown) (unknown) (no date) (unknown) (unknown) Sulfa (Sulfonamide Allergy Intermediate rash Verified 02/09/23 18:21 (units unknown) (unknown) (unknown) (no date) (unknown) (unknown) Surgical History (units unknown) (unknown) (unknown) (no date) (unknown) (unknown) Surgical changes and devices:? Status post median sternotomy. (units unknown) (unknown) (unknown) (no date) (unknown) (unknown) TAKE 1 CAPSULE BY MOUTH ONCE DAILY (units unknown) (unknown) (unknown) (no date) (unknown) (unknown) TAKE 1 TABLET BY MOUTH ONCE DAILY IN THE MORNING (units unknown) (unknown) (unknown) (no date) (unknown) (unknown) TAKE 1 TABLET BY MOUTH ONCE DAILY (units unknown) (unknown) (unknown) (no date) (unknown) (unknown) TECHNIQUE:? One view of the chest was acquired.? (units unknown) (unknown) (unknown) (no date) (unknown) (unknown) Temperature 98.1 F 02/09/23 18:15 (units unknown) (unknown) (unknown) (no date) (unknown) (unknown) Temperature 98.1 F (units unknown) (unknown) (unknown) (no date) (unknown) (unknown) They recommended she come for evaluation but also told her to try her inhaler. 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 24 hours a day, (units unknown) (unknown) (unknown) (no date) (unknown) (unknown) Time Seen by Provider: 02/09/23 19:10 (units unknown) (unknown) (unknown) (no date) (unknown) (unknown) Total Bilirubin (0.2-1.3) mg/dL (units unknown) (unknown) (unknown) (no date) (unknown) (unknown) Total Bilirubin 2.7 H (0.2-1.3) mg/dL (units unknown) (unknown) (unknown) (no date) (unknown) (unknown) Total Creatine Kinase (30-135) U/L (units unknown) (unknown) (unknown) (no date) (unknown) (unknown) Total Creatine Kinase 30 (30-135) U/L (units unknown) (unknown) (unknown) (no date) (unknown) (unknown) Total Protein (6.3-8.2) g/dL (units unknown) (unknown) (unknown) (no date) (unknown) (unknown) Total Protein 7.3 (6.3-8.2) g/dL (units unknown) (unknown) (unknown) (no date) (unknown) (unknown) Trop I [Troponin I] Stat (units unknown) (unknown) (unknown) (no date) (unknown) (unknown) Troponin + CK Cardiac Panel Stat (units unknown) (unknown) (unknown) (no date) (unknown) (unknown) Troponin I 0.017 (0.01-0.034) ng/mL (units unknown) (unknown) (unknown) (no date) (unknown) (unknown) Troponin I 0.021 (0.01-0.034) ng/mL (units unknown) (unknown) (unknown) (no date) (unknown) (unknown) Unstable angina (units unknown) (unknown) (unknown) (no date) (unknown) (unknown) Valvular heart disease (units unknown) (unknown) (unknown) (no date) (unknown) (unknown) Vital Signs - 8 hr (units unknown) (unknown) (unknown) (no date) (unknown) (unknown) Vital Signs (units unknown) (unknown) (unknown) (no date) (unknown) (unknown) Vital signs: (units unknown) (unknown) (unknown) (no date) (unknown) (unknown) WBC (4.5-11.0) X103/uL (units unknown) (unknown) (unknown) (no date) (unknown) (unknown) WBC 12.8 H (4.5-11.0) X103/uL (units unknown) (unknown) (unknown) (no date) (unknown) (unknown) Katy Salazar, BECKY [Primary Care Provider] (units unknown) (unknown) (unknown) (no date) (unknown) (unknown) XR chest 1V Stat (units unknown) (unknown) (unknown) (no date) (unknown) (unknown) XRay Report (units unknown) (unknown) (unknown) (no date) (unknown) (unknown) Your renal function was slightly elevated today follow up with your physician to (units unknown) (unknown) (unknown) (no date) (unknown) (unknown) [Embedded Image Not Available] (units unknown) (unknown) (unknown) (no date) (unknown) (unknown) [From Bactrim] (units unknown) (unknown) (unknown) (no date) (unknown) (unknown) [From Trilipix] Upset (units unknown) (unknown) (unknown) (no date) (unknown) (unknown) acarbose Allergy Intermediate Abdominal Verified 02/09/23 18:21 (units unknown) (unknown) (unknown) (no date) (unknown) (unknown) albuterol 90 mcg/actuation Aerosol (units unknown) (unknown) (unknown) (no date) (unknown) (unknown) albuterol 90 mcg/actuation aerosol 90 mcg inhalation PRN Shortness Of 07/24/22 (units unknown) (unknown) (unknown) (no date) (unknown) (unknown) albuterol just before arriving which he states has significantly improved her (units unknown) (unknown) (unknown) (no date) (unknown) (unknown) alcohol intake frequency: 0-2 drinks per day (units unknown) (unknown) (unknown) (no date) (unknown) (unknown) alcohol intake: never (units unknown) (unknown) (unknown) (no date) (unknown) (unknown) alcohol, no illicit. 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 She notes it got better after she used her (units unknown) (unknown) (unknown) (no date) (unknown) (unknown) and below (units unknown) (unknown) (unknown) (no date) (unknown) (unknown) any new swelling in her extremities. She states she went to the walk-in clinic (units unknown) (unknown) (unknown) (no date) (unknown) (unknown) appear (units unknown) (unknown) (unknown) (no date) (unknown) (unknown) appears similar with no acute or dynamic changes. (units unknown) (unknown) (unknown) (no date) (unknown) (unknown) aspirin 81 MG tablet,delayed release (DR/EC) (units unknown) (unknown) (unknown) (no date) (unknown) (unknown) aspirin 81 mg tablet,delayed 81 mg PO QDAY ##0 09/14/17 07/24/22 (units unknown) (unknown) (unknown) (no date) (unknown) (unknown) atorvastatin 20 mg tablet (Lipitor) 40 mg PO QPM 07/08/22 07/24/22 (units unknown) (unknown) (unknown) (no date) (unknown) (unknown) atorvastatin [Lipitor] 20 mg tablet (units unknown) (unknown) (unknown) (no date) (unknown) (unknown) because she could not get a hold of her primary care at the front office administrator referral. (units unknown) (unknown) (unknown) (no date) (unknown) (unknown) better when she uses her inhaler. She tried to reach her physician was not able (units unknown) (unknown) (unknown) (no date) (unknown) (unknown) bilaterally lower extremities. Neurovascularly intact (units unknown) (unknown) (unknown) (no date) (unknown) (unknown) budesonide [From Symbicort] Allergy Mild Anxiety Verified 02/09/23 18:21 (units unknown) (unknown) (unknown) (no date) (unknown) (unknown) but she is asymptomatic otherwise negative LFTs. Initial troponin is negative. (units unknown) (unknown) (unknown) (no date) (unknown) (unknown) capsule,extended release 24 hr (units unknown) (unknown) (unknown) (no date) (unknown) (unknown) carvedilol Allergy Mild Rash Verified 02/09/23 18:21 (units unknown) (unknown) (unknown) (no date) (unknown) (unknown) changes. Troponin is negative. (units unknown) (unknown) (unknown) (no date) (unknown) (unknown) chest with exertion. She denies diaphoresis, she states it does seem to get (units unknown) (unknown) (unknown) (no date) (unknown) (unknown) chlorthalidone Allergy Intermediate Redness of Verified 02/09/23 18:21 (units unknown) (unknown) (unknown) (no date) (unknown) (unknown) choline fenofibrate Allergy Mild Gastrointestinal Verified 02/09/23 18:21 (units unknown) (unknown) (unknown) (no date) (unknown) (unknown) clopidogrel 75 mg tablet 75 mg PO QAM 07/24/22 07/24/22 (units unknown) (unknown) (unknown) (no date) (unknown) (unknown) clopidogrel 75 mg tablet (units unknown) (unknown) (unknown) (no date) (unknown) (unknown) concerning symptoms. (units unknown) (unknown) (unknown) (no date) (unknown) (unknown) cyclobenzaprine 10 mg Tablet (units unknown) (unknown) (unknown) (no date) (unknown) (unknown) cyclobenzaprine 10 mg tablet 10 mg PO TID PRN Muscle Spasm 07/24/22 07/24/22 (units unknown) (unknown) (unknown) (no date) (unknown) (unknown) denies any fevers, no chills, no cold, cough or congestion she is had some more (units unknown) (unknown) (unknown) (no date) (unknown) (unknown) diaphoretic with it. No nausea no vomiting. No abdominal back or flank pain, (units unknown) (unknown) (unknown) (no date) (unknown) (unknown) diltiazem HCl 120 mg 120 mg PO QAM 07/08/22 07/24/22 (units unknown) (unknown) (unknown) (no date) (unknown) (unknown) diltiazem HCl [Cartia XT] 120 mg capsule,extended release 24hr (units unknown) (unknown) (unknown) (no date) (unknown) (unknown) does use Advair twice daily, she states she typically uses her albuterol couple (units unknown) (unknown) (unknown) (no date) (unknown) (unknown) doxazosin [From Cardura] Allergy Intermediate Rash Verified 02/09/23 18:21 (units unknown) (unknown) (unknown) (no date) (unknown) (unknown) doxycycline Allergy Intermediate Rash Verified 02/09/23 18:21 (units unknown) (unknown) (unknown) (no date) (unknown) (unknown) elevated than her usual, normal electrolytes no significant anemia, no (units unknown) (unknown) (unknown) (no date) (unknown) (unknown) enlarged, stable. Interstitial prominence is unchanged compared to the prior (units unknown) (unknown) (unknown) (no date) (unknown) (unknown) evaluation. She has a history significant for COPD on 2 L nasal cannula at all (units unknown) (unknown) (unknown) (no date) (unknown) (unknown) extremities (units unknown) (unknown) (unknown) (no date) (unknown) (unknown) flare. She is had a little bit increased shortness of breath and heaviness in (units unknown) (unknown) (unknown) (no date) (unknown) (unknown) formoterol [From Symbicort] Allergy Mild Anxiety Verified 02/09/23 18:21 (units unknown) (unknown) (unknown) (no date) (unknown) (unknown) frequent belching. She states it is always substernal not radiating it is worse (units unknown) (unknown) (unknown) (no date) (unknown) (unknown) frequently but states no dysuria, urgency or other changes. Patient has not had (units unknown) (unknown) (unknown) (no date) (unknown) (unknown) furosemide 40 mg tablet 40 mg PO QAM 07/08/22 07/08/22 (units unknown) (unknown) (unknown) (no date) (unknown) (unknown) furosemide 40 mg tablet (units unknown) (unknown) (unknown) (no date) (unknown) (unknown) gemfibrozil Allergy Intermediate Rash Verified 02/09/23 18:21 (units unknown) (unknown) (unknown) (no date) (unknown) (unknown) guarding or rebound, rigidity, no mass (units unknown) (unknown) (unknown) (no date) (unknown) (unknown) has some shortness of breath, and does sometimes have a heavy feeling in her (units unknown) (unknown) (unknown) (no date) (unknown) (unknown) her substernal chest for the past 1-2 days and while walking at [employer] the (units unknown) (unknown) (unknown) (no date) (unknown) (unknown) history. Initial workup CBC, coags, CMP shows creatinine of 1.06 slightly (units unknown) (unknown) (unknown) (no date) (unknown) (unknown) household members: family and children (units unknown) (unknown) (unknown) (no date) (unknown) (unknown) improved from the 5000 range she was at previously. Repeat EKG show no acute (units unknown) (unknown) (unknown) (no date) (unknown) (unknown) increasing frequency of use please start the prednisone script provided. (units unknown) (unknown) (unknown) (no date) (unknown) (unknown) inhaler Breath (units unknown) (unknown) (unknown) (no date) (unknown) (unknown) inhaler. She did stop her prednisone on February 06. Patient states she always (units unknown) (unknown) (unknown) (no date) (unknown) (unknown) ipratropium 0.5 mg-albuterol 3 mg ml inhalation PRN Shortness Of 07/24/22 (units unknown) (unknown) (unknown) (no date) (unknown) (unknown) ipratropium-albutero l 0.5 mg-3 mg(2.5 mg base)/3 mL solution for nebulization (units unknown) (unknown) (unknown) (no date) (unknown) (unknown) isosorbide mononitrate 120 mg 120 mg PO QAM 07/08/22 07/24/22 (units unknown) (unknown) (unknown) (no date) (unknown) (unknown) isosorbide mononitrate 120 mg tablet extended release 24 hr (units unknown) (unknown) (unknown) (no date) (unknown) (unknown) leukocytosis, bilirubin slightly elevated 2.7 has been intermittently elevated (units unknown) (unknown) (unknown) (no date) (unknown) (unknown) levofloxacin Allergy Intermediate Rash Verified 02/09/23 18:21 (units unknown) (unknown) (unknown) (no date) (unknown) (unknown) levothyroxine 88 mcg tablet 88 mcg PO QAM 07/08/22 07/24/22 (units unknown) (unknown) (unknown) (no date) (unknown) (unknown) levothyroxine 88 mcg tablet (units unknown) (unknown) (unknown) (no date) (unknown) (unknown) lightheadedness or passing out, swelling in her extremities or other new or (units unknown) (unknown) (unknown) (no date) (unknown) (unknown) likely chronic.? (units unknown) (unknown) (unknown) (no date) (unknown) (unknown) lisinopril 40 mg tablet 20 mg PO QAM 07/08/22 07/24/22 (units unknown) (unknown) (unknown) (no date) (unknown) (unknown) lisinopril 40 mg tablet (units unknown) (unknown) (unknown) (no date) (unknown) (unknown) losartan Allergy Intermediate Rash Verified 02/09/23 18:21 (units unknown) (unknown) (unknown) (no date) (unknown) (unknown) make sure it is not continuing to increase. (units unknown) (unknown) (unknown) (no date) (unknown) (unknown) metoprolol AdvReac Intermediate Verified 02/09/23 18:21 (units unknown) (unknown) (unknown) (no date) (unknown) (unknown) metoprolol succinate 25 mg 25 mg PO DAILY 07/24/22 07/24/22 (units unknown) (unknown) (unknown) (no date) (unknown) (unknown) metoprolol succinate 25 mg tablet extended release 24 hr (units unknown) (unknown) (unknown) (no date) (unknown) (unknown) moist mucous membranes (units unknown) (unknown) (unknown) (no date) (unknown) (unknown) montelukast [From Singulair] Allergy Intermediate Difficulty Verified 02/09/23 (units unknown) (unknown) (unknown) (no date) (unknown) (unknown) morning (units unknown) (unknown) (unknown) (no date) (unknown) (unknown) multiple allergies. She smoked for about 17 years quitting in the 70s. No (units unknown) (unknown) (unknown) (no date) (unknown) (unknown) multivitamin 1 tab PO DAILY 09/10/18 07/24/22 (units unknown) (unknown) (unknown) (no date) (unknown) (unknown) multivitamin Tablet,Chewable (units unknown) (unknown) (unknown) (no date) (unknown) (unknown) nifedipine Allergy Intermediate Chills Verified 02/09/23 18:21 (units unknown) (unknown) (unknown) (no date) (unknown) (unknown) nitroglycerin 0.4 mg sublingual 0.4 mg sublingual Q5-15M PRN Chest 09/10/18 (units unknown) (unknown) (unknown) (no date) (unknown) (unknown) nitroglycerin [Nitrostat] 0.4 mg Tablet, Sublingual (units unknown) (unknown) (unknown) (no date) (unknown) (unknown) no issues with bowel movements. She is on water pills so she urinates (units unknown) (unknown) (unknown) (no date) (unknown) (unknown) omega 8-gpc-wkj-fish oil 1,000 mg 1,000 mg PO DAILY 09/10/18 07/24/22 (units unknown) (unknown) (unknown) (no date) (unknown) (unknown) omega 3-anh-lwr-fish oil [Fish Oil] 1,000 mg (120 mg-180 mg) Capsule (units unknown) (unknown) (unknown) (no date) (unknown) (unknown) other day while shopping felt a little bit more heaviness. She did note that (units unknown) (unknown) (unknown) (no date) (unknown) (unknown) patient states she forgets to take (units unknown) (unknown) (unknown) (no date) (unknown) (unknown) pt has not started, it is at the pharmacy for her to picker (units unknown) (unknown) (unknown) (no date) (unknown) (unknown) pt instructed to stop medications. d/c 07/14/22 (units unknown) (unknown) (unknown) (no date) (unknown) (unknown) release (units unknown) (unknown) (unknown) (no date) (unknown) (unknown) she forgets to use her inhaler frequently and has not been using that. She (units unknown) (unknown) (unknown) (no date) (unknown) (unknown) soln (units unknown) (unknown) (unknown) (no date) (unknown) (unknown) statin medication for hypothyroidism, blood pressure. Patient states she has (units unknown) (unknown) (unknown) (no date) (unknown) (unknown) study and is (units unknown) (unknown) (unknown) (no date) (unknown) (unknown) sulfamethoxazole Allergy Intermediate Rash Verified 02/09/23 18:21 (units unknown) (unknown) (unknown) (no date) (unknown) (unknown) symptoms are more secondary to her airway disease. (units unknown) (unknown) (unknown) (no date) (unknown) (unknown) symptoms. She denies any symptoms currently. Patient does have a cardiac (units unknown) (unknown) (unknown) (no date) (unknown) (unknown) tablet (Nitrostat) Pain (units unknown) (unknown) (unknown) (no date) (unknown) (unknown) tablet,extended release 24 hr (units unknown) (unknown) (unknown) (no date) (unknown) (unknown) tachypnea. Speaks in full sentences. Easy work of breathing. (units unknown) (unknown) (unknown) (no date) (unknown) (unknown) times a week but typically also forgets to use it. She is on aspirin, Plavix, (units unknown) (unknown) (unknown) (no date) (unknown) (unknown) times, CABG, CHF she is on her Advair b.i.d., she has stopped prednisone on the (units unknown) (unknown) (unknown) (no date) (unknown) (unknown) to see them was referred to the walk-in clinic who sent her here for (units unknown) (unknown) (unknown) (no date) (unknown) (unknown) tobacco type: cigarettes (units unknown) (unknown) (unknown) (no date) (unknown) (unknown) torsemide 20 mg Tablet (units unknown) (unknown) (unknown) (no date) (unknown) (unknown) torsemide 20 mg tablet 20 mg PO DAILY 07/24/22 07/24/22 (units unknown) (unknown) (unknown) (no date) (unknown) (unknown) trimethoprim [From Bactrim] Allergy Intermediate Rash Verified 02/09/23 18:21 (units unknown) (unknown) (unknown) (no date) (unknown) (unknown) unremarkable.? (units unknown) (unknown) (unknown) (no date) (unknown) (unknown) vitamin E 268 mg (400 unit) capsule 400 unit PO DAILY 09/10/18 07/24/22 (units unknown) (unknown) (unknown) (no date) (unknown) (unknown) vitamin E 400 unit Capsule (units unknown) (unknown) (unknown) (no date) (unknown) (unknown) weekly. Her primary care is Dr. Katy Salazar. She has not been following (units unknown) (unknown) (unknown) (no date) (unknown) (unknown) with exertion she has a little bit more shortness of breath. She does not get (units unknown) (unknown) (unknown) (no date) (unknown) (unknown) with pulmonology regularly but has been seen, she sees cardiology. (units unknown) (unknown) Result panel 1171 (unknown) (no date) (unknown) (unknown) Negative (units unknown) (unknown) (unknown) (no date) (unknown) (unknown) Negative (units unknown) (unknown) Result panel 1172 (unknown) (no date) (unknown) (unknown) (no value) (units unknown) (unknown) (unknown) (no date) (unknown) (unknown) <Electronically signed by Glo Vela D.O.> (units unknown) (unknown) (unknown) (no date) (unknown) (unknown) (120 mg-180 mg) capsule (Fish Oil) (units unknown) (unknown) (unknown) (no date) (unknown) (unknown) (2.5 mg base)/3 mL nebulization Breath Or Wheezing (units unknown) (unknown) (unknown) (no date) (unknown) (unknown) (Cartia XT) (units unknown) (unknown) (unknown) (no date) (unknown) (unknown) 0.4 mg SUBLINGUAL Q5-15M PRN (Reason: Chest Pain) (units unknown) (unknown) (unknown) (no date) (unknown) (unknown) [id number] (units unknown) (unknown) (unknown) (no date) (unknown) (unknown) 02/09/23 02/09/23 02/09/23 Range/Units (units unknown) (unknown) (unknown) (no date) (unknown) (unknown) 02/09/23 18:30 (units unknown) (unknown) (unknown) (no date) (unknown) (unknown) 02/09/23 21:00 (units unknown) (unknown) (unknown) (no date) (unknown) (unknown) 02/09/23 (units unknown) (unknown) (unknown) (no date) (unknown) (unknown) 02/10/23 0534 (units unknown) (unknown) (unknown) (no date) (unknown) (unknown) 07/24/22 (units unknown) (unknown) (unknown) (no date) (unknown) (unknown) 1 tab PO DAILY (units unknown) (unknown) (unknown) (no date) (unknown) (unknown) 1,000 mg PO DAILY (units unknown) (unknown) (unknown) (no date) (unknown) (unknown) 1. No acute cardiopulmonary abnormality. (units unknown) (unknown) (unknown) (no date) (unknown) (unknown) 10 mg PO TID PRN (Reason: Muscle Spasm) (units unknown) (unknown) (unknown) (no date) (unknown) (unknown) 10 ml PO PRN (Reason: Cough) (units unknown) (unknown) (unknown) (no date) (unknown) (unknown) 10-100mg/5ml liquid. take 10ml by mouth every 4 hrs as needed for cough (units unknown) (unknown) (unknown) (no date) (unknown) (unknown) 06 of February she is not wheezy initially on exam but had used 2 puffs of her (units unknown) (unknown) (unknown) (no date) (unknown) (unknown) 120 mg PO QAM (units unknown) (unknown) (unknown) (no date) (unknown) (unknown) [address] (units unknown) (unknown) (unknown) (no date) (unknown) (unknown) 18:21 (units unknown) (unknown) (unknown) (no date) (unknown) (unknown) 18:30 18:30 18:30 (units unknown) (unknown) (unknown) (no date) (unknown) (unknown) 18:30 20:30 21:00 (units unknown) (unknown) (unknown) (no date) (unknown) (unknown) 2. Stable cardiomegaly.? (units unknown) (unknown) (unknown) (no date) (unknown) (unknown) 20 mg PO DAILY (units unknown) (unknown) (unknown) (no date) (unknown) (unknown) 20 mg PO QAM (units unknown) (unknown) (unknown) (no date) (unknown) (unknown) 21:40 (units unknown) (unknown) (unknown) (no date) (unknown) (unknown) 25 mg PO DAILY (units unknown) (unknown) (unknown) (no date) (unknown) (unknown) 40 mg PO QAM (units unknown) (unknown) (unknown) (no date) (unknown) (unknown) 40 mg PO QPM (units unknown) (unknown) (unknown) (no date) (unknown) (unknown) 400 unit PO DAILY (units unknown) (unknown) (unknown) (no date) (unknown) (unknown) 74 SC 172 QRS of 158 QTC of 479. Patient does have Q-wave in lead 3 and AVF. (units unknown) (unknown) (unknown) (no date) (unknown) (unknown) 75 mg PO QAM (units unknown) (unknown) (unknown) (no date) (unknown) (unknown) 81 mg PO QDAY Qty: 0 (units unknown) (unknown) (unknown) (no date) (unknown) (unknown) 88 mcg PO QAM (units unknown) (unknown) (unknown) (no date) (unknown) (unknown) 90 mcg INHALATION PRN (Reason: Shortness Of Breath) (units unknown) (unknown) (unknown) (no date) (unknown) (unknown) ? (units unknown) (unknown) (unknown) (no date) (unknown) (unknown) ABDOMEN: Soft, nontender. Normoactive bowel sounds all 4 quadrants. No (units unknown) (unknown) (unknown) (no date) (unknown) (unknown) ALT (<35) IU/L (units unknown) (unknown) (unknown) (no date) (unknown) (unknown) ALT 22 (<35) IU/L (units unknown) (unknown) (unknown) (no date) (unknown) (unknown) APTT (26-36) SECONDS (units unknown) (unknown) (unknown) (no date) (unknown) (unknown) APTT 30 (26-36) SECONDS (units unknown) (unknown) (unknown) (no date) (unknown) (unknown) AST (14-36) IU/L (units unknown) (unknown) (unknown) (no date) (unknown) (unknown) AST 28 (14-36) IU/L (units unknown) (unknown) (unknown) (no date) (unknown) (unknown) Accession Number: [id number] ?? (units unknown) (unknown) (unknown) (no date) (unknown) (unknown) Acct:[id number] (units unknown) (unknown) (unknown) (no date) (unknown) (unknown) Activity Restrictions/Additio nal Instructions: (units unknown) (unknown) (unknown) (no date) (unknown) (unknown) Acute exacerbation of chronic obstructive pulmonary disease (units unknown) (unknown) (unknown) (no date) (unknown) (unknown) Age/Sex: 87 / F (units unknown) (unknown) (unknown) (no date) (unknown) (unknown) Albumin (3.5-5.0) g/dL (units unknown) (unknown) (unknown) (no date) (unknown) (unknown) Albumin 4.1 (3.5-5.0) g/dL (units unknown) (unknown) (unknown) (no date) (unknown) (unknown) Albumin/Globulin Ratio (1.0-2.8) (units unknown) (unknown) (unknown) (no date) (unknown) (unknown) Albumin/Globulin Ratio 1.3 (1.0-2.8) (units unknown) (unknown) (unknown) (no date) (unknown) (unknown) Alkaline Phosphatase (38-126) U/L (units unknown) (unknown) (unknown) (no date) (unknown) (unknown) Alkaline Phosphatase 76 (38-126) U/L (units unknown) (unknown) (unknown) (no date) (unknown) (unknown) Allergies (units unknown) (unknown) (unknown) (no date) (unknown) (unknown) Allergy/AdvReac Type Severity Reaction Status Date / Time (units unknown) (unknown) (unknown) (no date) (unknown) (unknown) [place] [address] (units unknown) (unknown) (unknown) (no date) (unknown) (unknown) Aneurysm of infrarenal abdominal aorta (units unknown) (unknown) (unknown) (no date) (unknown) (unknown) Antibiotics) (units unknown) (unknown) (unknown) (no date) (unknown) (unknown) Approved by: Gamaliel Dobbins M.D. on 02/09/2023 at 19:58?? (units unknown) (unknown) (unknown) (no date) (unknown) (unknown) Aspirin (Aspirin 81 Mg Chew Tab) 324 mg PO NOW ONE (units unknown) (unknown) (unknown) (no date) (unknown) (unknown) Attestation: I personally reviewed and interpreted this ECG as follows: (units unknown) (unknown) (unknown) (no date) (unknown) (unknown) BUN (7-17) mg/dL (units unknown) (unknown) (unknown) (no date) (unknown) (unknown) BUN 26 H (7-17) mg/dL (units unknown) (unknown) (unknown) (no date) (unknown) (unknown) BUN/Creatinine Ratio (6-22) (units unknown) (unknown) (unknown) (no date) (unknown) (unknown) BUN/Creatinine Ratio 24.5 H (6-22) (units unknown) (unknown) (unknown) (no date) (unknown) (unknown) Baso # (Auto) (0-100) /uL (units unknown) (unknown) (unknown) (no date) (unknown) (unknown) Baso # (Auto) 100 (0-100) /uL (units unknown) (unknown) (unknown) (no date) (unknown) (unknown) Baso % (Auto) (0-2) % (units unknown) (unknown) (unknown) (no date) (unknown) (unknown) Baso % (Auto) 0.4 (0-2) % (units unknown) (unknown) (unknown) (no date) (unknown) (unknown) Bilateral carpal tunnel syndrome (units unknown) (unknown) (unknown) (no date) (unknown) (unknown) Blood Pressure 141/61 H 02/09/23 18:15 (units unknown) (unknown) (unknown) (no date) (unknown) (unknown) Blood Pressure 163/74 H (units unknown) (unknown) (unknown) (no date) (unknown) (unknown) Bones and chest wall:? No suspicious bony lesions.? Overlying soft tissues (units unknown) (unknown) (unknown) (no date) (unknown) (unknown) Breathing (units unknown) (unknown) (unknown) (no date) (unknown) (unknown) CABG, CHF, hypertension, dyslipidemia anticoagulated on aspirin and Plavix. (units unknown) (unknown) (unknown) (no date) (unknown) (unknown) CAD (coronary artery disease) (units unknown) (unknown) (unknown) (no date) (unknown) (unknown) CARDIOVASCULAR: Regular rate and rhythm without murmurs, rubs or gallops. No (units unknown) (unknown) (unknown) (no date) (unknown) (unknown) CK-MB (CK-2) Rel Index TNP (units unknown) (unknown) (unknown) (no date) (unknown) (unknown) CK-MB (CK-2) Rel Index (units unknown) (unknown) (unknown) (no date) (unknown) (unknown) CK-MB (CK-2) TNP (units unknown) (unknown) (unknown) (no date) (unknown) (unknown) CK-MB (CK-2) (units unknown) (unknown) (unknown) (no date) (unknown) (unknown) COMPARISON:[facility], CR, XR CHEST 1V, 12/06/2022, 13:21. (units unknown) (unknown) (unknown) (no date) (unknown) (unknown) COPD (chronic obstructive pulmonary disease) with emphysema (units unknown) (unknown) (unknown) (no date) (unknown) (unknown) COVID19 -Nasal RAPID Stat (units unknown) (unknown) (unknown) (no date) (unknown) (unknown) Calcium (8.4-10.2) mg/dL (units unknown) (unknown) (unknown) (no date) (unknown) (unknown) Calcium 10.0 (8.4-10.2) mg/dL (units unknown) (unknown) (unknown) (no date) (unknown) (unknown) Carbon Dioxide (22-32) mmol/L (units unknown) (unknown) (unknown) (no date) (unknown) (unknown) Carbon Dioxide 33 H (22-32) mmol/L (units unknown) (unknown) (unknown) (no date) (unknown) (unknown) Chest x-ray shows no acute change. BNP is elevated in the 2000 range but is (units unknown) (unknown) (unknown) (no date) (unknown) (unknown) Chest x-ray: (units unknown) (unknown) (unknown) (no date) (unknown) (unknown) Chief Complaint: Chest Pain (units unknown) (unknown) (unknown) (no date) (unknown) (unknown) Chloride (98-107) mmol/L (units unknown) (unknown) (unknown) (no date) (unknown) (unknown) Chloride 95 L (98-107) mmol/L (units unknown) (unknown) (unknown) (no date) (unknown) (unknown) Clinical Impression: (units unknown) (unknown) (unknown) (no date) (unknown) (unknown) Continue to use her albuterol you can do 2 puffs every 4 hours as needed. (units unknown) (unknown) (unknown) (no date) (unknown) (unknown) Continue your home medications as prescribed. (units unknown) (unknown) (unknown) (no date) (unknown) (unknown) Course (units unknown) (unknown) (unknown) (no date) (unknown) (unknown) Creatinine (0.52-1.04) mg/dL (units unknown) (unknown) (unknown) (no date) (unknown) (unknown) Creatinine 1.06 H (0.52-1.04) mg/dL (units unknown) (unknown) (unknown) (no date) (unknown) (unknown) : 1935 Acct:[id number] (units unknown) (unknown) (unknown) (no date) (unknown) (unknown) : 1935 (units unknown) (unknown) (unknown) (no date) (unknown) (unknown) Date of Service: 02/09/23 (units unknown) (unknown) (unknown) (no date) (unknown) (unknown) Departure (units unknown) (unknown) (unknown) (no date) (unknown) (unknown) Dictated by: Gamaliel Dobbins M.D. on 02/09/2023 at 19:57 ? ? (units unknown) (unknown) (unknown) (no date) (unknown) (unknown) Discharge Plan (units unknown) (unknown) (unknown) (no date) (unknown) (unknown) Discontinued Medications (units unknown) (unknown) (unknown) (no date) (unknown) (unknown) Discussed with patient she does have cardiac risk factors but I suspect her (units unknown) (unknown) (unknown) (no date) (unknown) (unknown) Documented By: KLS (units unknown) (unknown) (unknown) (no date) (unknown) (unknown) ECG Data (units unknown) (unknown) (unknown) (no date) (unknown) (unknown) ED Orders (units unknown) (unknown) (unknown) (no date) (unknown) (unknown) EKG2/sinus rhythm, premature atrial complex, right bundle-branch, LVH. Rate of (units unknown) (unknown) (unknown) (no date) (unknown) (unknown) ER Physician: Glo Vela D.O. (units unknown) (unknown) (unknown) (no date) (unknown) (unknown) EXTREMITIES: Normal range of motion, no clubbing or edema. 2+ pulses (units unknown) (unknown) (unknown) (no date) (unknown) (unknown) Elevated TSH (units unknown) (unknown) (unknown) (no date) (unknown) (unknown) Emergency Report (units unknown) (unknown) (unknown) (no date) (unknown) (unknown) Eos # (Auto) (0-450) /uL (units unknown) (unknown) (unknown) (no date) (unknown) (unknown) Eos # (Auto) 100 (0-450) /uL (units unknown) (unknown) (unknown) (no date) (unknown) (unknown) Eos % (Auto) (2-4) % (units unknown) (unknown) (unknown) (no date) (unknown) (unknown) Eos % (Auto) 0.9 L (2-4) % (units unknown) (unknown) (unknown) (no date) (unknown) (unknown) Estimated GFR (>60) mL/min (units unknown) (unknown) (unknown) (no date) (unknown) (unknown) Estimated GFR 51 L (>60) mL/min (units unknown) (unknown) (unknown) (no date) (unknown) (unknown) Exam Narrative: (units unknown) (unknown) (unknown) (no date) (unknown) (unknown) Exam (units unknown) (unknown) (unknown) (no date) (unknown) (unknown) FINDINGS:? (units unknown) (unknown) (unknown) (no date) (unknown) (unknown) Family History (units unknown) (unknown) (unknown) (no date) (unknown) (unknown) Father Lung cancer (units unknown) (unknown) (unknown) (no date) (unknown) (unknown) Flonase 50 mcg (units unknown) (unknown) (unknown) (no date) (unknown) (unknown) Flonase PRN Dry Nasal Passages 07/24/22 (units unknown) (unknown) (unknown) (no date) (unknown) (unknown) GENERAL: Alert and oriented x three, elderly female in no acute distress. (units unknown) (unknown) (unknown) (no date) (unknown) (unknown) : No CVA tenderness (units unknown) (unknown) (unknown) (no date) (unknown) (unknown) General (units unknown) (unknown) (unknown) (no date) (unknown) (unknown) Globulin (1.7-4.1) g/dL (units unknown) (unknown) (unknown) (no date) (unknown) (unknown) Globulin 3.2 (1.7-4.1) g/dL (units unknown) (unknown) (unknown) (no date) (unknown) (unknown) Glucose (80-110) mg/dL (units unknown) (unknown) (unknown) (no date) (unknown) (unknown) Glucose 167 H (80-110) mg/dL (units unknown) (unknown) (unknown) (no date) (unknown) (unknown) H/O hysterectomy with oophorectomy (units unknown) (unknown) (unknown) (no date) (unknown) (unknown) H/O three vessel coronary artery bypass (units unknown) (unknown) (unknown) (no date) (unknown) (unknown) HEENT: Head normocephalic, atraumatic, EOMI, pupils reactive, face symmetric, (units unknown) (unknown) (unknown) (no date) (unknown) (unknown) HPI - Chest Pain (units unknown) (unknown) (unknown) (no date) (unknown) (unknown) HPI narrative: (units unknown) (unknown) (unknown) (no date) (unknown) (unknown) HTN (hypertension) (units unknown) (unknown) (unknown) (no date) (unknown) (unknown) Hct (36-46) % (units unknown) (unknown) (unknown) (no date) (unknown) (unknown) Hct 41.3 (36-46) % (units unknown) (unknown) (unknown) (no date) (unknown) (unknown) Hgb (12.0-16.0) g/dL (units unknown) (unknown) (unknown) (no date) (unknown) (unknown) Hgb 13.8 (12.0-16.0) g/dL (units unknown) (unknown) (unknown) (no date) (unknown) (unknown) History of Present Illness (units unknown) (unknown) (unknown) (no date) (unknown) (unknown) Home Medications (units unknown) (unknown) (unknown) (no date) (unknown) (unknown) Hx of heart artery stent (units unknown) (unknown) (unknown) (no date) (unknown) (unknown) Hyperlipidemia (units unknown) (unknown) (unknown) (no date) (unknown) (unknown) IMPRESSION:? (units unknown) (unknown) (unknown) (no date) (unknown) (unknown) INDICATIONS:? chest pain (units unknown) (unknown) (unknown) (no date) (unknown) (unknown) INHALATION PRN (Reason: Shortness Of Breath Or Wheezing) (units unknown) (unknown) (unknown) (no date) (unknown) (unknown) INR (0.9-1.3) (units unknown) (unknown) (unknown) (no date) (unknown) (unknown) INR 1.1 (0.9-1.3) (units unknown) (unknown) (unknown) (no date) (unknown) (unknown) If you are needing to use your albuterol more than 1 or 2 times daily or have (units unknown) (unknown) (unknown) (no date) (unknown) (unknown) Imaging Data (units unknown) (unknown) (unknown) (no date) (unknown) (unknown) Initial Vital Signs (units unknown) (unknown) (unknown) (no date) (unknown) (unknown) Initial Vital Signs: (units unknown) (unknown) (unknown) (no date) (unknown) (unknown) Instructions: Chronic Obstructive Pulmonary Disease (Alternative Therapy) (units unknown) (unknown) (unknown) (no date) (unknown) (unknown) Interpretation: (units unknown) (unknown) (unknown) (no date) (unknown) (unknown) [address] [address] (units unknown) (unknown) (unknown) (no date) (unknown) (unknown) [facility] (units unknown) (unknown) (unknown) (no date) (unknown) (unknown) JVD. No swelling bilateral lower extremities. (units unknown) (unknown) (unknown) (no date) (unknown) (unknown) Lab Data (units unknown) (unknown) (unknown) (no date) (unknown) (unknown) Lab Results (units unknown) (unknown) (unknown) (no date) (unknown) (unknown) Labs: (units unknown) (unknown) (unknown) (no date) (unknown) (unknown) Last Admin: 02/09/23 19:28 Dose: Not Given (units unknown) (unknown) (unknown) (no date) (unknown) (unknown) Lateral leads this appears similar to today's earlier EKG and prior. (units unknown) (unknown) (unknown) (no date) (unknown) (unknown) Limitations: no limitations (units unknown) (unknown) (unknown) (no date) (unknown) (unknown) Lipase (23-300) U/L (units unknown) (unknown) (unknown) (no date) (unknown) (unknown) Lipase 45 (23-300) U/L (units unknown) (unknown) (unknown) (no date) (unknown) (unknown) Loc: ED (units unknown) (unknown) (unknown) (no date) (unknown) (unknown) Lungs and pleura:? Lungs are clear.? No pleural effusions or pneumothorax.? (units unknown) (unknown) (unknown) (no date) (unknown) (unknown) Lymph # (Auto) ([phone]) /uL (units unknown) (unknown) (unknown) (no date) (unknown) (unknown) Lymph # (Auto) 1200 (6209-1156) /uL (units unknown) (unknown) (unknown) (no date) (unknown) (unknown) Lymph % (Auto) (25-40) % (units unknown) (unknown) (unknown) (no date) (unknown) (unknown) Lymph % (Auto) 9.2 L (25-40) % (units unknown) (unknown) (unknown) (no date) (unknown) (unknown) MCH (26-34) PG (units unknown) (unknown) (unknown) (no date) (unknown) (unknown) MCH 28.7 (26-34) PG (units unknown) (unknown) (unknown) (no date) (unknown) (unknown) MCHC (30-36) % (units unknown) (unknown) (unknown) (no date) (unknown) (unknown) MCHC 33.6 (30-36) % (units unknown) (unknown) (unknown) (no date) (unknown) (unknown) MCV (80-100) fL (units unknown) (unknown) (unknown) (no date) (unknown) (unknown) MCV 85.4 (80-100) fL (units unknown) (unknown) (unknown) (no date) (unknown) (unknown) MDM - Chest Pain (units unknown) (unknown) (unknown) (no date) (unknown) (unknown) MDM Narrative (units unknown) (unknown) (unknown) (no date) (unknown) (unknown) MR#: [id number] (units unknown) (unknown) (unknown) (no date) (unknown) (unknown) Magnesium (1.6-2.3) mg/dL (units unknown) (unknown) (unknown) (no date) (unknown) (unknown) Magnesium 1.9 (1.6-2.3) mg/dL (units unknown) (unknown) (unknown) (no date) (unknown) (unknown) Mediastinum:? Normal mediastinal contours.? The aorta is tortuous.? The heart is (units unknown) (unknown) (unknown) (no date) (unknown) (unknown) Medical History (Updated 02/09/23 @ 21:15 by Glo Vela DO) (units unknown) (unknown) (unknown) (no date) (unknown) (unknown) Medical decision making narrative: (units unknown) (unknown) (unknown) (no date) (unknown) (unknown) Medication Instructions Recorded Confirmed (units unknown) (unknown) (unknown) (no date) (unknown) (unknown) Medication Instructions Recorded (units unknown) (unknown) (unknown) (no date) (unknown) (unknown) Mode of arrival: Ambulatory (units unknown) (unknown) (unknown) (no date) (unknown) (unknown) [place] # (Auto) (0-900) /uL (units unknown) (unknown) (unknown) (no date) (unknown) (unknown) [place] # (Auto) 700 (0-900) /uL (units unknown) (unknown) (unknown) (no date) (unknown) (unknown) [place] % (Auto) (3-14) % (units unknown) (unknown) (unknown) (no date) (unknown) (unknown) [place] % (Auto) 5.1 (3-14) % (units unknown) (unknown) (unknown) (no date) (unknown) (unknown) Mother COPD (chronic obstructive pulmonary disease) (units unknown) (unknown) (unknown) (no date) (unknown) (unknown) NECK: Supple, full range of motion (units unknown) (unknown) (unknown) (no date) (unknown) (unknown) NEUROLOGICAL: Cranial nerves II through XII grossly intact. Moving all (units unknown) (unknown) (unknown) (no date) (unknown) (unknown) NT-Pro-B Natriuret Pep (<450) pg/mL (units unknown) (unknown) (unknown) (no date) (unknown) (unknown) NT-Pro-B Natriuret Pep 2300 H (<450) pg/mL (units unknown) (unknown) (unknown) (no date) (unknown) (unknown) Narrative (units unknown) (unknown) (unknown) (no date) (unknown) (unknown) Neut # (Auto) (6322-5698) /uL (units unknown) (unknown) (unknown) (no date) (unknown) (unknown) Neut # (Auto) 59630 H (3599-2203) /uL (units unknown) (unknown) (unknown) (no date) (unknown) (unknown) Neut % (Auto) (50-75) % (units unknown) (unknown) (unknown) (no date) (unknown) (unknown) Neut % (Auto) 84.4 H (50-75) % (units unknown) (unknown) (unknown) (no date) (unknown) (unknown) New (units unknown) (unknown) (unknown) (no date) (unknown) (unknown) No Action (units unknown) (unknown) (unknown) (no date) (unknown) (unknown) Ordered: (units unknown) (unknown) (unknown) (no date) (unknown) (unknown) Ordering Provider: Glo Vela D.O. (units unknown) (unknown) (unknown) (no date) (unknown) (unknown) Orders (units unknown) (unknown) (unknown) (no date) (unknown) (unknown) Oxygen Delivery Method Nasal Cannula (units unknown) (unknown) (unknown) (no date) (unknown) (unknown) Oxygen Delivery Method Room Air 02/09/23 18:15 (units unknown) (unknown) (unknown) (no date) (unknown) (unknown) Oxygen Flow Rate 2 (units unknown) (unknown) (unknown) (no date) (unknown) (unknown) PRN (Reason: Dry Nasal Passages) (units unknown) (unknown) (unknown) (no date) (unknown) (unknown) PROCEDURE:? XR CHEST 1V (units unknown) (unknown) (unknown) (no date) (unknown) (unknown) PT (10.1-12.7) SECONDS (units unknown) (unknown) (unknown) (no date) (unknown) (unknown) PT 12.8 H (10.1-12.7) SECONDS (units unknown) (unknown) (unknown) (no date) (unknown) (unknown) Pain (units unknown) (unknown) (unknown) (no date) (unknown) (unknown) Patient Comments: (units unknown) (unknown) (unknown) (no date) (unknown) (unknown) Patient Disposition: Home (units unknown) (unknown) (unknown) (no date) (unknown) (unknown) Patient History (units unknown) (unknown) (unknown) (no date) (unknown) (unknown) Patient has sinus rhythm occasional PVC, right bundle-branch, LVH, patient has (units unknown) (unknown) (unknown) (no date) (unknown) (unknown) Patient states that she had stopped her prednisone on the after a recent (units unknown) (unknown) (unknown) (no date) (unknown) (unknown) Patient: Roselyn Mejia MR#: [id number] (units unknown) (unknown) (unknown) (no date) (unknown) (unknown) Patient: Roselyn Mejia (units unknown) (unknown) (unknown) (no date) (unknown) (unknown) Please follow-up for recheck. (units unknown) (unknown) (unknown) (no date) (unknown) (unknown) Please return for new or worsening chest pain or pressure, shortness of breath, (units unknown) (unknown) (unknown) (no date) (unknown) (unknown) Plt Count (150-400) X103/uL (units unknown) (unknown) (unknown) (no date) (unknown) (unknown) Plt Count 244 (150-400) X103/uL (units unknown) (unknown) (unknown) (no date) (unknown) (unknown) Potassium (3.4-5.1) mmol/L (units unknown) (unknown) (unknown) (no date) (unknown) (unknown) Potassium 4.0 (3.4-5.1) mmol/L (units unknown) (unknown) (unknown) (no date) (unknown) (unknown) Prescription sent to [facility] in [place]. (units unknown) (unknown) (unknown) (no date) (unknown) (unknown) Prescriptions: (units unknown) (unknown) (unknown) (no date) (unknown) (unknown) Previous Rx's (units unknown) (unknown) (unknown) (no date) (unknown) (unknown) Prior ECG tracings: available for review (units unknown) (unknown) (unknown) (no date) (unknown) (unknown) Procedure: XR chest 1V (units unknown) (unknown) (unknown) (no date) (unknown) (unknown) Pulse Oximetry 96 02/09/23 18:15 (units unknown) (unknown) (unknown) (no date) (unknown) (unknown) Pulse Oximetry 97 (units unknown) (unknown) (unknown) (no date) (unknown) (unknown) Pulse Rate 75 (units unknown) (unknown) (unknown) (no date) (unknown) (unknown) Pulse Rate 84 02/09/23 18:15 (units unknown) (unknown) (unknown) (no date) (unknown) (unknown) Q-waves 3 and AVF. Lateral leads. Patient has EKG from 12/06/2022 which (units unknown) (unknown) (unknown) (no date) (unknown) (unknown) RBC (4.0-5.2) X106/uL (units unknown) (unknown) (unknown) (no date) (unknown) (unknown) RBC 4.83 (4.0-5.2) X106/uL (units unknown) (unknown) (unknown) (no date) (unknown) (unknown) RDW (11.6-14.8) % (units unknown) (unknown) (unknown) (no date) (unknown) (unknown) RDW 16.3 H (11.6-14.8) % (units unknown) (unknown) (unknown) (no date) (unknown) (unknown) RESPIRATORY: Breath sounds equal bilaterally, no wheezes rales or rhonchi. No (units unknown) (unknown) (unknown) (no date) (unknown) (unknown) ROS Unobtainable: All systems reviewed + are unremarkable except as noted in HPI (units unknown) (unknown) (unknown) (no date) (unknown) (unknown) Radiologist's Impression: (units unknown) (unknown) (unknown) (no date) (unknown) (unknown) Referrals: (units unknown) (unknown) (unknown) (no date) (unknown) (unknown) Related Data (units unknown) (unknown) (unknown) (no date) (unknown) (unknown) Respiratory Rate 18 (units unknown) (unknown) (unknown) (no date) (unknown) (unknown) Respiratory Rate 20 02/09/23 18:15 (units unknown) (unknown) (unknown) (no date) (unknown) (unknown) Review of Systems (units unknown) (unknown) (unknown) (no date) (unknown) (unknown) Robitussin DM To Go 10 ml PO PRN Cough 07/24/22 (units unknown) (unknown) (unknown) (no date) (unknown) (unknown) Robitussin DM To Go (units unknown) (unknown) (unknown) (no date) (unknown) (unknown) Rx Instructions: (units unknown) (unknown) (unknown) (no date) (unknown) (unknown) SARS-CoV-2 (PCR) (Negative) (units unknown) (unknown) (unknown) (no date) (unknown) (unknown) SARS-CoV-2 (PCR) Negative (Negative) (units unknown) (unknown) (unknown) (no date) (unknown) (unknown) SKIN: Warm, dry, no petechiae, no rashes or lesions. (units unknown) (unknown) (unknown) (no date) (unknown) (unknown) See Rx Instructions .ROUTE .COMPLEX Qty: 21 0RF (units unknown) (unknown) (unknown) (no date) (unknown) (unknown) She took took puffs on the way over here and it helped her symptoms. Patient (units unknown) (unknown) (unknown) (no date) (unknown) (unknown) Signed By: (units unknown) (unknown) (unknown) (no date) (unknown) (unknown) Signed (units unknown) (unknown) (unknown) (no date) (unknown) (unknown) Skin (units unknown) (unknown) (unknown) (no date) (unknown) (unknown) Smoking Status: Former smoker (units unknown) (unknown) (unknown) (no date) (unknown) (unknown) Social History (units unknown) (unknown) (unknown) (no date) (unknown) (unknown) Sodium (137-145) mmol/L (units unknown) (unknown) (unknown) (no date) (unknown) (unknown) Sodium 135 L (137-145) mmol/L (units unknown) (unknown) (unknown) (no date) (unknown) (unknown) Source: patient (units unknown) (unknown) (unknown) (no date) (unknown) (unknown) Stand Alone Forms: Patient Portal/API (units unknown) (unknown) (unknown) (no date) (unknown) (unknown) Stated Complaint: has COPD, sent [facility] (units unknown) (unknown) (unknown) (no date) (unknown) (unknown) Status post cholecystectomy (units unknown) (unknown) (unknown) (no date) (unknown) (unknown) Stop: 02/09/23 18:22 (units unknown) (unknown) (unknown) (no date) (unknown) (unknown) Substance Use Type: does not use (units unknown) (unknown) (unknown) (no date) (unknown) (unknown) Sulfa (Sulfonamide Allergy Intermediate rash Verified 02/09/23 18:21 (units unknown) (unknown) (unknown) (no date) (unknown) (unknown) Surgical History (units unknown) (unknown) (unknown) (no date) (unknown) (unknown) Surgical changes and devices:? Status post median sternotomy. (units unknown) (unknown) (unknown) (no date) (unknown) (unknown) TAKE 1 CAPSULE BY MOUTH ONCE DAILY (units unknown) (unknown) (unknown) (no date) (unknown) (unknown) TAKE 1 TABLET BY MOUTH ONCE DAILY IN THE MORNING (units unknown) (unknown) (unknown) (no date) (unknown) (unknown) TAKE 1 TABLET BY MOUTH ONCE DAILY (units unknown) (unknown) (unknown) (no date) (unknown) (unknown) TECHNIQUE:? One view of the chest was acquired.? (units unknown) (unknown) (unknown) (no date) (unknown) (unknown) Take 6 tablets p.o. x1 day, then 5 tablets p.o. x1 day, then 4 tablets p.o. (units unknown) (unknown) (unknown) (no date) (unknown) (unknown) Temperature 98.1 F 02/09/23 18:15 (units unknown) (unknown) (unknown) (no date) (unknown) (unknown) They recommended she come for evaluation but also told her to try her inhaler. 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 24 hours a day, (units unknown) (unknown) (unknown) (no date) (unknown) (unknown) Time Seen by Provider: 02/09/23 19:10 (units unknown) (unknown) (unknown) (no date) (unknown) (unknown) Total Bilirubin (0.2-1.3) mg/dL (units unknown) (unknown) (unknown) (no date) (unknown) (unknown) Total Bilirubin 2.7 H (0.2-1.3) mg/dL (units unknown) (unknown) (unknown) (no date) (unknown) (unknown) Total Creatine Kinase (30-135) U/L (units unknown) (unknown) (unknown) (no date) (unknown) (unknown) Total Creatine Kinase 30 (30-135) U/L (units unknown) (unknown) (unknown) (no date) (unknown) (unknown) Total Protein (6.3-8.2) g/dL (units unknown) (unknown) (unknown) (no date) (unknown) (unknown) Total Protein 7.3 (6.3-8.2) g/dL (units unknown) (unknown) (unknown) (no date) (unknown) (unknown) Troponin I 0.017 (0.01-0.034) ng/mL (units unknown) (unknown) (unknown) (no date) (unknown) (unknown) Troponin I 0.021 (0.01-0.034) ng/mL (units unknown) (unknown) (unknown) (no date) (unknown) (unknown) Unstable angina (units unknown) (unknown) (unknown) (no date) (unknown) (unknown) Valvular heart disease (units unknown) (unknown) (unknown) (no date) (unknown) (unknown) Vital Signs - 8 hr (units unknown) (unknown) (unknown) (no date) (unknown) (unknown) Vital Signs (units unknown) (unknown) (unknown) (no date) (unknown) (unknown) Vital signs: (units unknown) (unknown) (unknown) (no date) (unknown) (unknown) WBC (4.5-11.0) X103/uL (units unknown) (unknown) (unknown) (no date) (unknown) (unknown) WBC 12.8 H (4.5-11.0) X103/uL (units unknown) (unknown) (unknown) (no date) (unknown) (unknown) Katy Salazar, WELL TESTING OPERATOR [Primary Care Provider] (units unknown) (unknown) (unknown) (no date) (unknown) (unknown) XRay Report (units unknown) (unknown) (unknown) (no date) (unknown) (unknown) Your renal function was slightly elevated today follow up with your physician to (units unknown) (unknown) (unknown) (no date) (unknown) (unknown) [Embedded Image Not Available] (units unknown) (unknown) (unknown) (no date) (unknown) (unknown) [From Bactrim] (units unknown) (unknown) (unknown) (no date) (unknown) (unknown) [From Trilipix] Upset (units unknown) (unknown) (unknown) (no date) (unknown) (unknown) acarbose Allergy Intermediate Abdominal Verified 02/09/23 18:21 (units unknown) (unknown) (unknown) (no date) (unknown) (unknown) albuterol 90 mcg/actuation Aerosol (units unknown) (unknown) (unknown) (no date) (unknown) (unknown) albuterol 90 mcg/actuation aerosol 90 mcg inhalation PRN Shortness Of 07/24/22 (units unknown) (unknown) (unknown) (no date) (unknown) (unknown) albuterol just before arriving which he states has significantly improved her (units unknown) (unknown) (unknown) (no date) (unknown) (unknown) alcohol intake frequency: 0-2 drinks per day (units unknown) (unknown) (unknown) (no date) (unknown) (unknown) alcohol intake: never (units unknown) (unknown) (unknown) (no date) (unknown) (unknown) alcohol, no illicit. 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 She notes it got better after she used her (units unknown) (unknown) (unknown) (no date) (unknown) (unknown) and below (units unknown) (unknown) (unknown) (no date) (unknown) (unknown) any new swelling in her extremities. She states she went to the walk-in clinic (units unknown) (unknown) (unknown) (no date) (unknown) (unknown) appear (units unknown) (unknown) (unknown) (no date) (unknown) (unknown) appears similar with no acute or dynamic changes. (units unknown) (unknown) (unknown) (no date) (unknown) (unknown) aspirin 81 MG tablet,delayed release (DR/EC) (units unknown) (unknown) (unknown) (no date) (unknown) (unknown) aspirin 81 mg tablet,delayed 81 mg PO QDAY ##0 09/14/17 07/24/22 (units unknown) (unknown) (unknown) (no date) (unknown) (unknown) atorvastatin 20 mg tablet (Lipitor) 40 mg PO QPM 07/08/22 07/24/22 (units unknown) (unknown) (unknown) (no date) (unknown) (unknown) atorvastatin [Lipitor] 20 mg tablet (units unknown) (unknown) (unknown) (no date) (unknown) (unknown) because she could not get a hold of her primary care at the front office administrator referral. (units unknown) (unknown) (unknown) (no date) (unknown) (unknown) better when she uses her inhaler. She tried to reach her physician was not able (units unknown) (unknown) (unknown) (no date) (unknown) (unknown) bilaterally lower extremities. Neurovascularly intact (units unknown) (unknown) (unknown) (no date) (unknown) (unknown) budesonide [From Symbicort] Allergy Mild Anxiety Verified 02/09/23 18:21 (units unknown) (unknown) (unknown) (no date) (unknown) (unknown) but she is asymptomatic otherwise negative LFTs. Initial troponin is negative. (units unknown) (unknown) (unknown) (no date) (unknown) (unknown) capsule,extended release 24 hr (units unknown) (unknown) (unknown) (no date) (unknown) (unknown) carvedilol Allergy Mild Rash Verified 02/09/23 18:21 (units unknown) (unknown) (unknown) (no date) (unknown) (unknown) changes. Troponin is negative. (units unknown) (unknown) (unknown) (no date) (unknown) (unknown) chest with exertion. She denies diaphoresis, she states it does seem to get (units unknown) (unknown) (unknown) (no date) (unknown) (unknown) chlorthalidone Allergy Intermediate Redness of Verified 02/09/23 18:21 (units unknown) (unknown) (unknown) (no date) (unknown) (unknown) choline fenofibrate Allergy Mild Gastrointestinal Verified 02/09/23 18:21 (units unknown) (unknown) (unknown) (no date) (unknown) (unknown) clopidogrel 75 mg tablet 75 mg PO QAM 07/24/22 07/24/22 (units unknown) (unknown) (unknown) (no date) (unknown) (unknown) clopidogrel 75 mg tablet (units unknown) (unknown) (unknown) (no date) (unknown) (unknown) concerning symptoms. (units unknown) (unknown) (unknown) (no date) (unknown) (unknown) cyclobenzaprine 10 mg Tablet (units unknown) (unknown) (unknown) (no date) (unknown) (unknown) cyclobenzaprine 10 mg tablet 10 mg PO TID PRN Muscle Spasm 07/24/22 07/24/22 (units unknown) (unknown) (unknown) (no date) (unknown) (unknown) denies any fevers, no chills, no cold, cough or congestion she is had some more (units unknown) (unknown) (unknown) (no date) (unknown) (unknown) diaphoretic with it. No nausea no vomiting. No abdominal back or flank pain, (units unknown) (unknown) (unknown) (no date) (unknown) (unknown) diltiazem HCl 120 mg 120 mg PO QAM 07/08/22 07/24/22 (units unknown) (unknown) (unknown) (no date) (unknown) (unknown) diltiazem HCl [Cartia XT] 120 mg capsule,extended release 24hr (units unknown) (unknown) (unknown) (no date) (unknown) (unknown) does not region on examination but had used her albuterol prior to arrival (units unknown) (unknown) (unknown) (no date) (unknown) (unknown) does use Advair twice daily, she states she typically uses her albuterol couple (units unknown) (unknown) (unknown) (no date) (unknown) (unknown) doxazosin [From Cardura] Allergy Intermediate Rash Verified 02/09/23 18:21 (units unknown) (unknown) (unknown) (no date) (unknown) (unknown) doxycycline Allergy Intermediate Rash Verified 02/09/23 18:21 (units unknown) (unknown) (unknown) (no date) (unknown) (unknown) elevated than her usual, normal electrolytes no significant anemia, no (units unknown) (unknown) (unknown) (no date) (unknown) (unknown) enlarged, stable. Interstitial prominence is unchanged compared to the prior (units unknown) (unknown) (unknown) (no date) (unknown) (unknown) evaluation. She has a history significant for COPD on 2 L nasal cannula at all (units unknown) (unknown) (unknown) (no date) (unknown) (unknown) extremities (units unknown) (unknown) (unknown) (no date) (unknown) (unknown) flare. She is had a little bit increased shortness of breath and heaviness in (units unknown) (unknown) (unknown) (no date) (unknown) (unknown) formoterol [From Symbicort] Allergy Mild Anxiety Verified 02/09/23 18:21 (units unknown) (unknown) (unknown) (no date) (unknown) (unknown) frequent belching. She states it is always substernal not radiating it is worse (units unknown) (unknown) (unknown) (no date) (unknown) (unknown) frequently but states no dysuria, urgency or other changes. Patient has not had (units unknown) (unknown) (unknown) (no date) (unknown) (unknown) function slightly increased. (units unknown) (unknown) (unknown) (no date) (unknown) (unknown) furosemide 40 mg tablet 40 mg PO QAM 07/08/22 07/08/22 (units unknown) (unknown) (unknown) (no date) (unknown) (unknown) furosemide 40 mg tablet (units unknown) (unknown) (unknown) (no date) (unknown) (unknown) gemfibrozil Allergy Intermediate Rash Verified 02/09/23 18:21 (units unknown) (unknown) (unknown) (no date) (unknown) (unknown) guarding or rebound, rigidity, no mass (units unknown) (unknown) (unknown) (no date) (unknown) (unknown) has some shortness of breath, and does sometimes have a heavy feeling in her (units unknown) (unknown) (unknown) (no date) (unknown) (unknown) her substernal chest for the past 1-2 days and while walking at [employer] the (units unknown) (unknown) (unknown) (no date) (unknown) (unknown) history. Initial workup CBC, coags, CMP shows creatinine of 1.06 slightly (units unknown) (unknown) (unknown) (no date) (unknown) (unknown) household members: family and children (units unknown) (unknown) (unknown) (no date) (unknown) (unknown) if she is having any worsening change. Also asked her to follow-up as her renal (units unknown) (unknown) (unknown) (no date) (unknown) (unknown) improved from the 5000 range she was at previously. Repeat EKG show no acute (units unknown) (unknown) (unknown) (no date) (unknown) (unknown) increasing frequency of use please start the prednisone script provided. (units unknown) (unknown) (unknown) (no date) (unknown) (unknown) inhaler Breath (units unknown) (unknown) (unknown) (no date) (unknown) (unknown) inhaler. She did stop her prednisone on February 06. Patient states she always (units unknown) (unknown) (unknown) (no date) (unknown) (unknown) ipratropium 0.5 mg-albuterol 3 mg ml inhalation PRN Shortness Of 07/24/22 (units unknown) (unknown) (unknown) (no date) (unknown) (unknown) ipratropium-albutero l 0.5 mg-3 mg(2.5 mg base)/3 mL solution for nebulization (units unknown) (unknown) (unknown) (no date) (unknown) (unknown) isosorbide mononitrate 120 mg 120 mg PO QAM 07/08/22 07/24/22 (units unknown) (unknown) (unknown) (no date) (unknown) (unknown) isosorbide mononitrate 120 mg tablet extended release 24 hr (units unknown) (unknown) (unknown) (no date) (unknown) (unknown) leukocytosis, bilirubin slightly elevated 2.7 has been intermittently elevated (units unknown) (unknown) (unknown) (no date) (unknown) (unknown) levofloxacin Allergy Intermediate Rash Verified 02/09/23 18:21 (units unknown) (unknown) (unknown) (no date) (unknown) (unknown) levothyroxine 88 mcg tablet 88 mcg PO QAM 07/08/22 07/24/22 (units unknown) (unknown) (unknown) (no date) (unknown) (unknown) levothyroxine 88 mcg tablet (units unknown) (unknown) (unknown) (no date) (unknown) (unknown) lightheadedness or passing out, swelling in her extremities or other new or (units unknown) (unknown) (unknown) (no date) (unknown) (unknown) likely chronic.? (units unknown) (unknown) (unknown) (no date) (unknown) (unknown) lisinopril 40 mg tablet 20 mg PO QAM 07/08/22 07/24/22 (units unknown) (unknown) (unknown) (no date) (unknown) (unknown) lisinopril 40 mg tablet (units unknown) (unknown) (unknown) (no date) (unknown) (unknown) losartan Allergy Intermediate Rash Verified 02/09/23 18:21 (units unknown) (unknown) (unknown) (no date) (unknown) (unknown) make sure it is not continuing to increase. (units unknown) (unknown) (unknown) (no date) (unknown) (unknown) metoprolol AdvReac Intermediate Verified 02/09/23 18:21 (units unknown) (unknown) (unknown) (no date) (unknown) (unknown) metoprolol succinate 25 mg 25 mg PO DAILY 07/24/22 07/24/22 (units unknown) (unknown) (unknown) (no date) (unknown) (unknown) metoprolol succinate 25 mg tablet extended release 24 hr (units unknown) (unknown) (unknown) (no date) (unknown) (unknown) moist mucous membranes (units unknown) (unknown) (unknown) (no date) (unknown) (unknown) montelukast [From Singulair] Allergy Intermediate Difficulty Verified 02/09/23 (units unknown) (unknown) (unknown) (no date) (unknown) (unknown) morning (units unknown) (unknown) (unknown) (no date) (unknown) (unknown) multiple allergies. She smoked for about 17 years quitting in the 70s. No (units unknown) (unknown) (unknown) (no date) (unknown) (unknown) multivitamin 1 tab PO DAILY 09/10/18 07/24/22 (units unknown) (unknown) (unknown) (no date) (unknown) (unknown) multivitamin Tablet,Chewable (units unknown) (unknown) (unknown) (no date) (unknown) (unknown) nifedipine Allergy Intermediate Chills Verified 02/09/23 18:21 (units unknown) (unknown) (unknown) (no date) (unknown) (unknown) nitroglycerin 0.4 mg sublingual 0.4 mg sublingual Q5-15M PRN Chest 09/10/18 (units unknown) (unknown) (unknown) (no date) (unknown) (unknown) nitroglycerin [Nitrostat] 0.4 mg Tablet, Sublingual (units unknown) (unknown) (unknown) (no date) (unknown) (unknown) no issues with bowel movements. She is on water pills so she urinates (units unknown) (unknown) (unknown) (no date) (unknown) (unknown) omega [id number] oil 1,000 mg 1,000 mg PO DAILY 09/10/18 07/24/22 (units unknown) (unknown) (unknown) (no date) (unknown) (unknown) omega 1-vcr-lli-fish oil [Fish Oil] 1,000 mg (120 mg-180 mg) Capsule (units unknown) (unknown) (unknown) (no date) (unknown) (unknown) other day while shopping felt a little bit more heaviness. She did note that (units unknown) (unknown) (unknown) (no date) (unknown) (unknown) p.o. x1 day (units unknown) (unknown) (unknown) (no date) (unknown) (unknown) pack #21 ea (units unknown) (unknown) (unknown) (no date) (unknown) (unknown) patient states she forgets to take (units unknown) (unknown) (unknown) (no date) (unknown) (unknown) prednisone 10 mg tablets in a dose See Rx Instructions PO .COMPLEX 02/09/23 (units unknown) (unknown) (unknown) (no date) (unknown) (unknown) prednisone 10 mg tablets,dose pack (units unknown) (unknown) (unknown) (no date) (unknown) (unknown) pt has not started, it is at the pharmacy for her to picker (units unknown) (unknown) (unknown) (no date) (unknown) (unknown) pt instructed to stop medications. d/c 07/14/22 (units unknown) (unknown) (unknown) (no date) (unknown) (unknown) release (units unknown) (unknown) (unknown) (no date) (unknown) (unknown) seemed to improve her symptoms. Patient was given prescription for prednisone (units unknown) (unknown) (unknown) (no date) (unknown) (unknown) she forgets to use her inhaler frequently and has not been using that. She (units unknown) (unknown) (unknown) (no date) (unknown) (unknown) soln (units unknown) (unknown) (unknown) (no date) (unknown) (unknown) statin medication for hypothyroidism, blood pressure. Patient states she has (units unknown) (unknown) (unknown) (no date) (unknown) (unknown) study and is (units unknown) (unknown) (unknown) (no date) (unknown) (unknown) sulfamethoxazole Allergy Intermediate Rash Verified 02/09/23 18:21 (units unknown) (unknown) (unknown) (no date) (unknown) (unknown) symptoms are more secondary to her airway disease. Plan for patient to continue (units unknown) (unknown) (unknown) (no date) (unknown) (unknown) symptoms. She denies any symptoms currently. Patient does have a cardiac (units unknown) (unknown) (unknown) (no date) (unknown) (unknown) tablet (Nitrostat) Pain (units unknown) (unknown) (unknown) (no date) (unknown) (unknown) tablet,extended release 24 hr (units unknown) (unknown) (unknown) (no date) (unknown) (unknown) tachypnea. Speaks in full sentences. Easy work of breathing. (units unknown) (unknown) (unknown) (no date) (unknown) (unknown) times a week but typically also forgets to use it. She is on aspirin, Plavix, (units unknown) (unknown) (unknown) (no date) (unknown) (unknown) times, CABG, CHF she is on her Advair b.i.d., she has stopped prednisone on the (units unknown) (unknown) (unknown) (no date) (unknown) (unknown) to see them was referred to the walk-in clinic who sent her here for (units unknown) (unknown) (unknown) (no date) (unknown) (unknown) to use albuterol as needed. She is not had any increasing O2 requirements and (units unknown) (unknown) (unknown) (no date) (unknown) (unknown) tobacco type: cigarettes (units unknown) (unknown) (unknown) (no date) (unknown) (unknown) torsemide 20 mg Tablet (units unknown) (unknown) (unknown) (no date) (unknown) (unknown) torsemide 20 mg tablet 20 mg PO DAILY 07/24/22 07/24/22 (units unknown) (unknown) (unknown) (no date) (unknown) (unknown) trimethoprim [From Bactrim] Allergy Intermediate Rash Verified 02/09/23 18:21 (units unknown) (unknown) (unknown) (no date) (unknown) (unknown) unremarkable.? (units unknown) (unknown) (unknown) (no date) (unknown) (unknown) vitamin E 268 mg (400 unit) capsule 400 unit PO DAILY 09/10/18 07/24/22 (units unknown) (unknown) (unknown) (no date) (unknown) (unknown) vitamin E 400 unit Capsule (units unknown) (unknown) (unknown) (no date) (unknown) (unknown) weekly. Her primary care is Dr. Katy Salazar. She has not been following (units unknown) (unknown) (unknown) (no date) (unknown) (unknown) with exertion she has a little bit more shortness of breath. She does not get (units unknown) (unknown) (unknown) (no date) (unknown) (unknown) with pulmonology regularly but has been seen, she sees cardiology. (units unknown) (unknown) (unknown) (no date) (unknown) (unknown) x1 day, then 3 tablets p.o. x1 day, then 2 tablets p.o. x1 day, then 1 tablet (units unknown) (unknown) Result panel 1173 (unknown) (no date) (unknown) (unknown) (no value) (units unknown) (unknown) (unknown) (no date) (unknown) (unknown) [id number] (units unknown) (unknown) (unknown) (no date) (unknown) (unknown) 02/16/23 (units unknown) (unknown) (unknown) (no date) (unknown) (unknown) [address] [place] [address] (units unknown) (unknown) (unknown) (no date) (unknown) (unknown) Accession Number: [id number] (units unknown) (unknown) (unknown) (no date) (unknown) (unknown) Age/Sex: 87 / F Date of Service: (units unknown) (unknown) (unknown) (no date) (unknown) (unknown) [place] [address] (units unknown) (unknown) (unknown) (no date) (unknown) (unknown) Approved by: Hilario Oconnell M.D. on 02/16/2023 at 17:46 (units unknown) (unknown) (unknown) (no date) (unknown) (unknown) Atherosclerotic calcifications of the aortic arch are present. (units unknown) (unknown) (unknown) (no date) (unknown) (unknown) Bones and chest wall: No suspicious bony lesions. Overlying soft tissues (units unknown) (unknown) (unknown) (no date) (unknown) (unknown) COMPARISON: [facility], CR, XR CHEST 1V, 02/09/2023, 18:32. (units unknown) (unknown) (unknown) (no date) (unknown) (unknown) : 1935 Acct:[id number] (units unknown) (unknown) (unknown) (no date) (unknown) (unknown) Dictated by: Hilario Oconnell M.D. on 02/16/2023 at 17:45 (units unknown) (unknown) (unknown) (no date) (unknown) (unknown) FINDINGS: (units unknown) (unknown) (unknown) (no date) (unknown) (unknown) IMPRESSION: Interval development of right mid lung zone focal airspace (units unknown) (unknown) (unknown) (no date) (unknown) (unknown) INDICATIONS: chest pain (units unknown) (unknown) (unknown) (no date) (unknown) (unknown) [facility] (units unknown) (unknown) (unknown) (no date) (unknown) (unknown) Loc: ED (units unknown) (unknown) (unknown) (no date) (unknown) (unknown) Lungs and pleura: Patchy consolidation of the right mid lung zone which has (units unknown) (unknown) (unknown) (no date) (unknown) (unknown) Mediastinum: Mediastinal contours appear normal. Heart size is enlarged. (units unknown) (unknown) (unknown) (no date) (unknown) (unknown) No (units unknown) (unknown) (unknown) (no date) (unknown) (unknown) Ordering Provider: Simon Smith MD (units unknown) (unknown) (unknown) (no date) (unknown) (unknown) PROCEDURE: XR CHEST 1V (units unknown) (unknown) (unknown) (no date) (unknown) (unknown) Patient: Roselyn Mejia MR#: [id number] (units unknown) (unknown) (unknown) (no date) (unknown) (unknown) Procedure: XR chest 1V (units unknown) (unknown) (unknown) (no date) (unknown) (unknown) Recommend follow up chest radiograph 4-6 weeks after treatment to document (units unknown) (unknown) (unknown) (no date) (unknown) (unknown) Signed (units unknown) (unknown) (unknown) (no date) (unknown) (unknown) Stable cardiomegaly. (units unknown) (unknown) (unknown) (no date) (unknown) (unknown) Surgical changes and devices: Median sternotomy wires are present and appear (units unknown) (unknown) (unknown) (no date) (unknown) (unknown) TECHNIQUE: One view of the chest was acquired. (units unknown) (unknown) (unknown) (no date) (unknown) (unknown) XRay Report (units unknown) (unknown) (unknown) (no date) (unknown) (unknown) appear (units unknown) (unknown) (unknown) (no date) (unknown) (unknown) compared to the prior study. Patchy left basilar opacities also more prominent. (units unknown) (unknown) (unknown) (no date) (unknown) (unknown) consolidations in the left hemithorax. No pneumothorax. No substantial pleural (units unknown) (unknown) (unknown) (no date) (unknown) (unknown) disease/pneumonia. (units unknown) (unknown) (unknown) (no date) (unknown) (unknown) effusion. Background chronic interstitial changes as before. (units unknown) (unknown) (unknown) (no date) (unknown) (unknown) findings and/or return to baseline examination. (units unknown) (unknown) (unknown) (no date) (unknown) (unknown) intact. (units unknown) (unknown) (unknown) (no date) (unknown) (unknown) progressed (units unknown) (unknown) (unknown) (no date) (unknown) (unknown) resolution of (units unknown) (unknown) (unknown) (no date) (unknown) (unknown) unremarkable. (units unknown) (unknown) Result panel 1174 (unknown) (no date) (unknown) (unknown) 0 /ul (unknown) (unknown) (no date) (unknown) (unknown) 0.2 % (unknown) (unknown) (no date) (unknown) (unknown) 0.3 % (unknown) (unknown) (no date) (unknown) (unknown) 100 /ul (unknown) (unknown) (no date) (unknown) (unknown) 12.8 g/dl (unknown) (unknown) (no date) (unknown) (unknown) 1200 /ul (unknown) (unknown) (no date) (unknown) (unknown) 15.6 % (unknown) (unknown) (no date) (unknown) (unknown) [id number] /ul (unknown) (unknown) (no date) (unknown) (unknown) 18.8 x10 3/ul (unknown) (unknown) (no date) (unknown) (unknown) 247 x10 3/ul (unknown) (unknown) (no date) (unknown) (unknown) 28.5 pg (unknown) (unknown) (no date) (unknown) (unknown) 33.4 % (unknown) (unknown) (no date) (unknown) (unknown) 38.4 % (unknown) (unknown) (no date) (unknown) (unknown) 4.49 x10 6/ul (unknown) (unknown) (no date) (unknown) (unknown) 4.9 % (unknown) (unknown) (no date) (unknown) (unknown) 6.6 % (unknown) (unknown) (no date) (unknown) (unknown) 85.5 fl (unknown) (unknown) (no date) (unknown) (unknown) 88.0 % (unknown) (unknown) (no date) (unknown) (unknown) 900 /ul (unknown) Result panel 1175 (unknown) (no date) (unknown) (unknown) 1.3 (units unknown) (unknown) (unknown) (no date) (unknown) (unknown) 15.3 seconds (unknown) (unknown) (no date) (unknown) (unknown) 31 seconds (unknown) (unknown) (no date) (unknown) (unknown) 31 seconds (unknown) Result panel 1176 (unknown) (no date) (unknown) (unknown) Negative (units unknown) (unknown) (unknown) (no date) (unknown) (unknown) Negative (units unknown) (unknown) Result panel 1177 (unknown) (no date) (unknown) (unknown) 1.06 mg/dl (unknown) (unknown) (no date) (unknown) (unknown) 1.2 (units unknown) (unknown) (unknown) (no date) (unknown) (unknown) 1.9 mg/dl (unknown) (unknown) (no date) (unknown) (unknown) 105 mg/dl (unknown) (unknown) (no date) (unknown) (unknown) 105 mg/dl (unknown) (unknown) (no date) (unknown) (unknown) 130 mmol/l (unknown) (unknown) (no date) (unknown) (unknown) 17.0 (units unknown) (unknown) (unknown) (no date) (unknown) (unknown) 18 iu/l (unknown) (unknown) (no date) (unknown) (unknown) 18 mg/dl (unknown) (unknown) (no date) (unknown) (unknown) 2.6 mg/dl (unknown) (unknown) (no date) (unknown) (unknown) 22 iu/l (unknown) (unknown) (no date) (unknown) (unknown) 24 u/l (unknown) (unknown) (no date) (unknown) (unknown) 3.1 g/dl (unknown) (unknown) (no date) (unknown) (unknown) 3.8 g/dl (unknown) (unknown) (no date) (unknown) (unknown) 31 u/l (unknown) (unknown) (no date) (unknown) (unknown) 32 mmol/l (unknown) (unknown) (no date) (unknown) (unknown) 4.0 mmol/l (unknown) (unknown) (no date) (unknown) (unknown) 51 ml/min (unknown) (unknown) (no date) (unknown) (unknown) 51 ml/min (unknown) (unknown) (no date) (unknown) (unknown) 6.9 g/dl (unknown) (unknown) (no date) (unknown) (unknown) 82 u/l (unknown) (unknown) (no date) (unknown) (unknown) 9.5 mg/dl (unknown) (unknown) (no date) (unknown) (unknown) 93 mmol/l (unknown) (unknown) (no date) (unknown) (unknown) Test not performed % (unknown) (unknown) (no date) (unknown) (unknown) Test not performed % (unknown) (unknown) (no date) (unknown) (unknown) Test not performed ng/ml (unknown) (unknown) (no date) (unknown) (unknown) Test not performed ng/ml (unknown) Result panel 1178 (unknown) (no date) (unknown) (unknown) 0.030 ng/ml (unknown) (unknown) (no date) (unknown) (unknown) 0.030 ng/ml (unknown) (unknown) (no date) (unknown) (unknown) 1.06 mg/dl (unknown) (unknown) (no date) (unknown) (unknown) 1.2 (units unknown) (unknown) (unknown) (no date) (unknown) (unknown) 1.9 mg/dl (unknown) (unknown) (no date) (unknown) (unknown) 105 mg/dl (unknown) (unknown) (no date) (unknown) (unknown) 105 mg/dl (unknown) (unknown) (no date) (unknown) (unknown) 130 mmol/l (unknown) (unknown) (no date) (unknown) (unknown) 17.0 (units unknown) (unknown) (unknown) (no date) (unknown) (unknown) 18 iu/l (unknown) (unknown) (no date) (unknown) (unknown) 18 mg/dl (unknown) (unknown) (no date) (unknown) (unknown) 2.6 mg/dl (unknown) (unknown) (no date) (unknown) (unknown) 22 iu/l (unknown) (unknown) (no date) (unknown) (unknown) 24 u/l (unknown) (unknown) (no date) (unknown) (unknown) 3.1 g/dl (unknown) (unknown) (no date) (unknown) (unknown) 3.8 g/dl (unknown) (unknown) (no date) (unknown) (unknown) 31 u/l (unknown) (unknown) (no date) (unknown) (unknown) 32 mmol/l (unknown) (unknown) (no date) (unknown) (unknown) 4.0 mmol/l (unknown) (unknown) (no date) (unknown) (unknown) 51 ml/min (unknown) (unknown) (no date) (unknown) (unknown) 51 ml/min (unknown) (unknown) (no date) (unknown) (unknown) 6.9 g/dl (unknown) (unknown) (no date) (unknown) (unknown) 82 u/l (unknown) (unknown) (no date) (unknown) (unknown) 9.5 mg/dl (unknown) (unknown) (no date) (unknown) (unknown) 93 mmol/l (unknown) (unknown) (no date) (unknown) (unknown) Test not performed % (unknown) (unknown) (no date) (unknown) (unknown) Test not performed % (unknown) (unknown) (no date) (unknown) (unknown) Test not performed ng/ml (unknown) (unknown) (no date) (unknown) (unknown) Test not performed ng/ml (unknown) Result panel 1179 (unknown) (no date) (unknown) (unknown) (no value) (units unknown) (unknown) (unknown) (no date) (unknown) (unknown) (120 mg-180 mg) capsule (Fish Oil) (units unknown) (unknown) (unknown) (no date) (unknown) (unknown) (2.5 mg base)/3 mL nebulization Breath Or Wheezing (units unknown) (unknown) (unknown) (no date) (unknown) (unknown) (Cartia XT) (units unknown) (unknown) (unknown) (no date) (unknown) (unknown) 0.4 mg SUBLINGUAL Q5-15M PRN (Reason: Chest Pain) (units unknown) (unknown) (unknown) (no date) (unknown) (unknown) [id number] (units unknown) (unknown) (unknown) (no date) (unknown) (unknown) 02/16/23 02/16/23 02/16/23 Range/Units (units unknown) (unknown) (unknown) (no date) (unknown) (unknown) 02/16/23 17:07 (units unknown) (unknown) (unknown) (no date) (unknown) (unknown) 02/16/23 17:08 (units unknown) (unknown) (unknown) (no date) (unknown) (unknown) 02/16/23 18:00 (units unknown) (unknown) (unknown) (no date) (unknown) (unknown) 02/16/23 18:05 (units unknown) (unknown) (unknown) (no date) (unknown) (unknown) 02/16/23 Range/Units (units unknown) (unknown) (unknown) (no date) (unknown) (unknown) 02/16/23 (units unknown) (unknown) (unknown) (no date) (unknown) (unknown) 07/24/22 (units unknown) (unknown) (unknown) (no date) (unknown) (unknown) 1 tab PO DAILY (units unknown) (unknown) (unknown) (no date) (unknown) (unknown) 1,000 mg PO DAILY (units unknown) (unknown) (unknown) (no date) (unknown) (unknown) 10 mg PO TID PRN (Reason: Muscle Spasm) (units unknown) (unknown) (unknown) (no date) (unknown) (unknown) 10 ml PO PRN (Reason: Cough) (units unknown) (unknown) (unknown) (no date) (unknown) (unknown) 10-100mg/5ml liquid. take 10ml by mouth every 4 hrs as needed for cough (units unknown) (unknown) (unknown) (no date) (unknown) (unknown) 120 mg PO QAM (units unknown) (unknown) (unknown) (no date) (unknown) (unknown) 16:59 02/16/23 (units unknown) (unknown) (unknown) (no date) (unknown) (unknown) 18:00 18:00 18:00 (units unknown) (unknown) (unknown) (no date) (unknown) (unknown) 18:05 (units unknown) (unknown) (unknown) (no date) (unknown) (unknown) 18:20 02/16/23 (units unknown) (unknown) (unknown) (no date) (unknown) (unknown) 18:21 (units unknown) (unknown) (unknown) (no date) (unknown) (unknown) 18:22 02/16/23 (units unknown) (unknown) (unknown) (no date) (unknown) (unknown) 18:22 (units unknown) (unknown) (unknown) (no date) (unknown) (unknown) 18:29 (units unknown) (unknown) (unknown) (no date) (unknown) (unknown) 20 mg PO DAILY (units unknown) (unknown) (unknown) (no date) (unknown) (unknown) 20 mg PO QAM (units unknown) (unknown) (unknown) (no date) (unknown) (unknown) 25 mg PO DAILY (units unknown) (unknown) (unknown) (no date) (unknown) (unknown) 40 mg PO QAM (units unknown) (unknown) (unknown) (no date) (unknown) (unknown) 40 mg PO QPM (units unknown) (unknown) (unknown) (no date) (unknown) (unknown) 400 unit PO DAILY (units unknown) (unknown) (unknown) (no date) (unknown) (unknown) 75 mg PO QAM (units unknown) (unknown) (unknown) (no date) (unknown) (unknown) 81 mg PO QDAY Qty: 0 (units unknown) (unknown) (unknown) (no date) (unknown) (unknown) 88 mcg PO QAM (units unknown) (unknown) (unknown) (no date) (unknown) (unknown) 90 mcg INHALATION PRN (Reason: Shortness Of Breath) (units unknown) (unknown) (unknown) (no date) (unknown) (unknown) ALT (<35) IU/L (units unknown) (unknown) (unknown) (no date) (unknown) (unknown) ALT 18 (<35) IU/L (units unknown) (unknown) (unknown) (no date) (unknown) (unknown) APTT (26-36) SECONDS (units unknown) (unknown) (unknown) (no date) (unknown) (unknown) APTT 31 (26-36) SECONDS (units unknown) (unknown) (unknown) (no date) (unknown) (unknown) AST (14-36) IU/L (units unknown) (unknown) (unknown) (no date) (unknown) (unknown) AST 22 (14-36) IU/L (units unknown) (unknown) (unknown) (no date) (unknown) (unknown) Age/Sex: 87 / F (units unknown) (unknown) (unknown) (no date) (unknown) (unknown) Albumin (3.5-5.0) g/dL (units unknown) (unknown) (unknown) (no date) (unknown) (unknown) Albumin 3.8 (3.5-5.0) g/dL (units unknown) (unknown) (unknown) (no date) (unknown) (unknown) Albumin/Globulin Ratio (1.0-2.8) (units unknown) (unknown) (unknown) (no date) (unknown) (unknown) Albumin/Globulin Ratio 1.2 (1.0-2.8) (units unknown) (unknown) (unknown) (no date) (unknown) (unknown) Alkaline Phosphatase (38-126) U/L (units unknown) (unknown) (unknown) (no date) (unknown) (unknown) Alkaline Phosphatase 82 (38-126) U/L (units unknown) (unknown) (unknown) (no date) (unknown) (unknown) Allergies (units unknown) (unknown) (unknown) (no date) (unknown) (unknown) Allergy/AdvReac Type Severity Reaction Status Date / Time (units unknown) (unknown) (unknown) (no date) (unknown) (unknown) Aneurysm of infrarenal abdominal aorta (units unknown) (unknown) (unknown) (no date) (unknown) (unknown) Antibiotics) (units unknown) (unknown) (unknown) (no date) (unknown) (unknown) BUN (7-17) mg/dL (units unknown) (unknown) (unknown) (no date) (unknown) (unknown) BUN 18 H (7-17) mg/dL (units unknown) (unknown) (unknown) (no date) (unknown) (unknown) BUN/Creatinine Ratio (6-22) (units unknown) (unknown) (unknown) (no date) (unknown) (unknown) BUN/Creatinine Ratio 17.0 (6-22) (units unknown) (unknown) (unknown) (no date) (unknown) (unknown) Baso # (Auto) (0-100) /uL (units unknown) (unknown) (unknown) (no date) (unknown) (unknown) Baso # (Auto) 100 (0-100) /uL (units unknown) (unknown) (unknown) (no date) (unknown) (unknown) Baso % (Auto) (0-2) % (units unknown) (unknown) (unknown) (no date) (unknown) (unknown) Baso % (Auto) 0.3 (0-2) % (units unknown) (unknown) (unknown) (no date) (unknown) (unknown) Bilateral carpal tunnel syndrome (units unknown) (unknown) (unknown) (no date) (unknown) (unknown) Blood Pressure 140/72 02/16/23 16:59 (units unknown) (unknown) (unknown) (no date) (unknown) (unknown) Blood Pressure 140/72 129/60 (units unknown) (unknown) (unknown) (no date) (unknown) (unknown) Blood Pressure (units unknown) (unknown) (unknown) (no date) (unknown) (unknown) Breathing (units unknown) (unknown) (unknown) (no date) (unknown) (unknown) CAD (coronary artery disease) (units unknown) (unknown) (unknown) (no date) (unknown) (unknown) CK-MB (CK-2) Rel Index TNP (units unknown) (unknown) (unknown) (no date) (unknown) (unknown) CK-MB (CK-2) Rel Index (units unknown) (unknown) (unknown) (no date) (unknown) (unknown) CK-MB (CK-2) TNP (units unknown) (unknown) (unknown) (no date) (unknown) (unknown) CK-MB (CK-2) (units unknown) (unknown) (unknown) (no date) (unknown) (unknown) COPD (chronic obstructive pulmonary disease) with emphysema (units unknown) (unknown) (unknown) (no date) (unknown) (unknown) COVID19 -Nasal RAPID Stat (units unknown) (unknown) (unknown) (no date) (unknown) (unknown) Calcium (8.4-10.2) mg/dL (units unknown) (unknown) (unknown) (no date) (unknown) (unknown) Calcium 9.5 (8.4-10.2) mg/dL (units unknown) (unknown) (unknown) (no date) (unknown) (unknown) Carbon Dioxide (22-32) mmol/L (units unknown) (unknown) (unknown) (no date) (unknown) (unknown) Carbon Dioxide 32 (22-32) mmol/L (units unknown) (unknown) (unknown) (no date) (unknown) (unknown) Chief complaint: Weakness (units unknown) (unknown) (unknown) (no date) (unknown) (unknown) Chloride (98-107) mmol/L (units unknown) (unknown) (unknown) (no date) (unknown) (unknown) Chloride 93 L (98-107) mmol/L (units unknown) (unknown) (unknown) (no date) (unknown) (unknown) Complete Blood Count AUTO DIFF Stat (units unknown) (unknown) (unknown) (no date) (unknown) (unknown) Comprehensive Metabolic Panel Stat (units unknown) (unknown) (unknown) (no date) (unknown) (unknown) Course (units unknown) (unknown) (unknown) (no date) (unknown) (unknown) Creatinine (0.52-1.04) mg/dL (units unknown) (unknown) (unknown) (no date) (unknown) (unknown) Creatinine 1.06 H (0.52-1.04) mg/dL (units unknown) (unknown) (unknown) (no date) (unknown) (unknown) : 1935 Acct:[id number] (units unknown) (unknown) (unknown) (no date) (unknown) (unknown) Date of Service: 02/16/23 (units unknown) (unknown) (unknown) (no date) (unknown) (unknown) Departure (units unknown) (unknown) (unknown) (no date) (unknown) (unknown) Discharge Plan (units unknown) (unknown) (unknown) (no date) (unknown) (unknown) ED Orders (units unknown) (unknown) (unknown) (no date) (unknown) (unknown) EKG-12 Lead Stat (units unknown) (unknown) (unknown) (no date) (unknown) (unknown) ER Physician: Tan Fink D.O. (units unknown) (unknown) (unknown) (no date) (unknown) (unknown) Elevated TSH (units unknown) (unknown) (unknown) (no date) (unknown) (unknown) Emergency Report (units unknown) (unknown) (unknown) (no date) (unknown) (unknown) Eos # (Auto) (0-450) /uL (units unknown) (unknown) (unknown) (no date) (unknown) (unknown) Eos # (Auto) 0 (0-450) /uL (units unknown) (unknown) (unknown) (no date) (unknown) (unknown) Eos % (Auto) (2-4) % (units unknown) (unknown) (unknown) (no date) (unknown) (unknown) Eos % (Auto) 0.2 L (2-4) % (units unknown) (unknown) (unknown) (no date) (unknown) (unknown) Estimated GFR (>60) mL/min (units unknown) (unknown) (unknown) (no date) (unknown) (unknown) Estimated GFR 51 L (>60) mL/min (units unknown) (unknown) (unknown) (no date) (unknown) (unknown) Exam (units unknown) (unknown) (unknown) (no date) (unknown) (unknown) Family History (units unknown) (unknown) (unknown) (no date) (unknown) (unknown) Father Lung cancer (units unknown) (unknown) (unknown) (no date) (unknown) (unknown) Flonase 50 mcg (units unknown) (unknown) (unknown) (no date) (unknown) (unknown) Flonase PRN Dry Nasal Passages 07/24/22 (units unknown) (unknown) (unknown) (no date) (unknown) (unknown) General (units unknown) (unknown) (unknown) (no date) (unknown) (unknown) Globulin (1.7-4.1) g/dL (units unknown) (unknown) (unknown) (no date) (unknown) (unknown) Globulin 3.1 (1.7-4.1) g/dL (units unknown) (unknown) (unknown) (no date) (unknown) (unknown) Glucose (80-110) mg/dL (units unknown) (unknown) (unknown) (no date) (unknown) (unknown) Glucose 105 (80-110) mg/dL (units unknown) (unknown) (unknown) (no date) (unknown) (unknown) H/O hysterectomy with oophorectomy (units unknown) (unknown) (unknown) (no date) (unknown) (unknown) H/O three vessel coronary artery bypass (units unknown) (unknown) (unknown) (no date) (unknown) (unknown) HPI - General Adult (units unknown) (unknown) (unknown) (no date) (unknown) (unknown) HTN (hypertension) (units unknown) (unknown) (unknown) (no date) (unknown) (unknown) Hct (36-46) % (units unknown) (unknown) (unknown) (no date) (unknown) (unknown) Hct 38.4 (36-46) % (units unknown) (unknown) (unknown) (no date) (unknown) (unknown) Hgb (12.0-16.0) g/dL (units unknown) (unknown) (unknown) (no date) (unknown) (unknown) Hgb 12.8 (12.0-16.0) g/dL (units unknown) (unknown) (unknown) (no date) (unknown) (unknown) Home Medications (units unknown) (unknown) (unknown) (no date) (unknown) (unknown) Hx of heart artery stent (units unknown) (unknown) (unknown) (no date) (unknown) (unknown) Hyperlipidemia (units unknown) (unknown) (unknown) (no date) (unknown) (unknown) INHALATION PRN (Reason: Shortness Of Breath Or Wheezing) (units unknown) (unknown) (unknown) (no date) (unknown) (unknown) INR (0.9-1.3) (units unknown) (unknown) (unknown) (no date) (unknown) (unknown) INR 1.3 (0.9-1.3) (units unknown) (unknown) (unknown) (no date) (unknown) (unknown) Initial Vital Signs (units unknown) (unknown) (unknown) (no date) (unknown) (unknown) Initial Vital Signs: (units unknown) (unknown) (unknown) (no date) (unknown) (unknown) [address] [address] (units unknown) (unknown) (unknown) (no date) (unknown) (unknown) Lab Data (units unknown) (unknown) (unknown) (no date) (unknown) (unknown) Lab Results (units unknown) (unknown) (unknown) (no date) (unknown) (unknown) Labs: (units unknown) (unknown) (unknown) (no date) (unknown) (unknown) Lipase (23-300) U/L (units unknown) (unknown) (unknown) (no date) (unknown) (unknown) Lipase 31 (23-300) U/L (units unknown) (unknown) (unknown) (no date) (unknown) (unknown) Lipase Stat (units unknown) (unknown) (unknown) (no date) (unknown) (unknown) Lymph # (Auto) (9173-5082) /uL (units unknown) (unknown) (unknown) (no date) (unknown) (unknown) Lymph # (Auto) 900 L (8163-3675) /uL (units unknown) (unknown) (unknown) (no date) (unknown) (unknown) Lymph % (Auto) (25-40) % (units unknown) (unknown) (unknown) (no date) (unknown) (unknown) Lymph % (Auto) 4.9 L (25-40) % (units unknown) (unknown) (unknown) (no date) (unknown) (unknown) MCH (26-34) PG (units unknown) (unknown) (unknown) (no date) (unknown) (unknown) MCH 28.5 (26-34) PG (units unknown) (unknown) (unknown) (no date) (unknown) (unknown) MCHC (30-36) % (units unknown) (unknown) (unknown) (no date) (unknown) (unknown) MCHC 33.4 (30-36) % (units unknown) (unknown) (unknown) (no date) (unknown) (unknown) MCV (80-100) fL (units unknown) (unknown) (unknown) (no date) (unknown) (unknown) MCV 85.5 (80-100) fL (units unknown) (unknown) (unknown) (no date) (unknown) (unknown) Magnesium (1.6-2.3) mg/dL (units unknown) (unknown) (unknown) (no date) (unknown) (unknown) Magnesium 1.9 (1.6-2.3) mg/dL (units unknown) (unknown) (unknown) (no date) (unknown) (unknown) Magnesium Stat (units unknown) (unknown) (unknown) (no date) (unknown) (unknown) Medical Decision Making (units unknown) (unknown) (unknown) (no date) (unknown) (unknown) Medical History (Updated 02/09/23 @ 21:15 by Glo Vela DO) (units unknown) (unknown) (unknown) (no date) (unknown) (unknown) Medication Instructions Recorded Confirmed (units unknown) (unknown) (unknown) (no date) (unknown) (unknown) Medication Instructions Recorded (units unknown) (unknown) (unknown) (no date) (unknown) (unknown) Mode of arrival: EMS (units unknown) (unknown) (unknown) (no date) (unknown) (unknown) [place] # (Auto) (0-900) /uL (units unknown) (unknown) (unknown) (no date) (unknown) (unknown) [place] # (Auto) 1200 H (0-900) /uL (units unknown) (unknown) (unknown) (no date) (unknown) (unknown) [place] % (Auto) (3-14) % (units unknown) (unknown) (unknown) (no date) (unknown) (unknown) [place] % (Auto) 6.6 (3-14) % (units unknown) (unknown) (unknown) (no date) (unknown) (unknown) Mother COPD (chronic obstructive pulmonary disease) (units unknown) (unknown) (unknown) (no date) (unknown) (unknown) Neut # (Auto) (5327-6856) /uL (units unknown) (unknown) (unknown) (no date) (unknown) (unknown) Neut # (Auto) 84155 H (4282-6286) /uL (units unknown) (unknown) (unknown) (no date) (unknown) (unknown) Neut % (Auto) (50-75) % (units unknown) (unknown) (unknown) (no date) (unknown) (unknown) Neut % (Auto) 88.0 H (50-75) % (units unknown) (unknown) (unknown) (no date) (unknown) (unknown) No Action (units unknown) (unknown) (unknown) (no date) (unknown) (unknown) Ordered: (units unknown) (unknown) (unknown) (no date) (unknown) (unknown) Orders (units unknown) (unknown) (unknown) (no date) (unknown) (unknown) Oxygen Delivery Method Nasal Cannula 02/16/23 16:59 (units unknown) (unknown) (unknown) (no date) (unknown) (unknown) Oxygen Delivery Method Nasal Cannula (units unknown) (unknown) (unknown) (no date) (unknown) (unknown) Oxygen Flow Rate 2 02/16/23 16:59 (units unknown) (unknown) (unknown) (no date) (unknown) (unknown) Oxygen Flow Rate 2 (units unknown) (unknown) (unknown) (no date) (unknown) (unknown) PRN (Reason: Dry Nasal Passages) (units unknown) (unknown) (unknown) (no date) (unknown) (unknown) PT (10.1-12.7) SECONDS (units unknown) (unknown) (unknown) (no date) (unknown) (unknown) PT 15.3 H (10.1-12.7) SECONDS (units unknown) (unknown) (unknown) (no date) (unknown) (unknown) PTT Partial Thromboplastin Jorge Luis Stat (units unknown) (unknown) (unknown) (no date) (unknown) (unknown) Pain (units unknown) (unknown) (unknown) (no date) (unknown) (unknown) Patient Comments: (units unknown) (unknown) (unknown) (no date) (unknown) (unknown) Patient History (units unknown) (unknown) (unknown) (no date) (unknown) (unknown) Patient: Roselyn Mejia MR#: [id number] (units unknown) (unknown) (unknown) (no date) (unknown) (unknown) Plt Count (150-400) X103/uL (units unknown) (unknown) (unknown) (no date) (unknown) (unknown) Plt Count 247 (150-400) X103/uL (units unknown) (unknown) (unknown) (no date) (unknown) (unknown) Potassium (3.4-5.1) mmol/L (units unknown) (unknown) (unknown) (no date) (unknown) (unknown) Potassium 4.0 (3.4-5.1) mmol/L (units unknown) (unknown) (unknown) (no date) (unknown) (unknown) Prescriptions: (units unknown) (unknown) (unknown) (no date) (unknown) (unknown) Previous Rx's (units unknown) (unknown) (unknown) (no date) (unknown) (unknown) Prothrombin Time INR Stat (units unknown) (unknown) (unknown) (no date) (unknown) (unknown) Pulse Oximetry 94 02/16/23 16:59 (units unknown) (unknown) (unknown) (no date) (unknown) (unknown) Pulse Oximetry 94 (units unknown) (unknown) (unknown) (no date) (unknown) (unknown) Pulse Oximetry 95 (units unknown) (unknown) (unknown) (no date) (unknown) (unknown) Pulse Rate 76 (units unknown) (unknown) (unknown) (no date) (unknown) (unknown) Pulse Rate 82 02/16/23 16:59 (units unknown) (unknown) (unknown) (no date) (unknown) (unknown) Pulse Rate 82 77 (units unknown) (unknown) (unknown) (no date) (unknown) (unknown) RBC (4.0-5.2) X106/uL (units unknown) (unknown) (unknown) (no date) (unknown) (unknown) RBC 4.49 (4.0-5.2) X106/uL (units unknown) (unknown) (unknown) (no date) (unknown) (unknown) RDW (11.6-14.8) % (units unknown) (unknown) (unknown) (no date) (unknown) (unknown) RDW 15.6 H (11.6-14.8) % (units unknown) (unknown) (unknown) (no date) (unknown) (unknown) Referrals: (units unknown) (unknown) (unknown) (no date) (unknown) (unknown) Related Data (units unknown) (unknown) (unknown) (no date) (unknown) (unknown) Respiratory Rate 24 02/16/23 16:59 (units unknown) (unknown) (unknown) (no date) (unknown) (unknown) Respiratory Rate 24 (units unknown) (unknown) (unknown) (no date) (unknown) (unknown) Respiratory Rate 31 H (units unknown) (unknown) (unknown) (no date) (unknown) (unknown) Robitussin DM To Go 10 ml PO PRN Cough 07/24/22 (units unknown) (unknown) (unknown) (no date) (unknown) (unknown) Robitussin DM To Go (units unknown) (unknown) (unknown) (no date) (unknown) (unknown) Rx Instructions: (units unknown) (unknown) (unknown) (no date) (unknown) (unknown) SARS-CoV-2 (PCR) (Negative) (units unknown) (unknown) (unknown) (no date) (unknown) (unknown) SARS-CoV-2 (PCR) Negative (Negative) (units unknown) (unknown) (unknown) (no date) (unknown) (unknown) See Rx Instructions .ROUTE .COMPLEX Qty: 21 0RF (units unknown) (unknown) (unknown) (no date) (unknown) (unknown) Signed By: (units unknown) (unknown) (unknown) (no date) (unknown) (unknown) Skin (units unknown) (unknown) (unknown) (no date) (unknown) (unknown) Smoking Status: Former smoker (units unknown) (unknown) (unknown) (no date) (unknown) (unknown) Social History (units unknown) (unknown) (unknown) (no date) (unknown) (unknown) Sodium (137-145) mmol/L (units unknown) (unknown) (unknown) (no date) (unknown) (unknown) Sodium 130 L (137-145) mmol/L (units unknown) (unknown) (unknown) (no date) (unknown) (unknown) Source: patient and EMS (units unknown) (unknown) (unknown) (no date) (unknown) (unknown) Stated complaint: Gen weak/ cough/could (units unknown) (unknown) (unknown) (no date) (unknown) (unknown) Status post cholecystectomy (units unknown) (unknown) (unknown) (no date) (unknown) (unknown) Substance Use Type: does not use (units unknown) (unknown) (unknown) (no date) (unknown) (unknown) Sulfa (Sulfonamide Allergy Intermediate rash Verified 02/09/23 18:21 (units unknown) (unknown) (unknown) (no date) (unknown) (unknown) Surgical History (units unknown) (unknown) (unknown) (no date) (unknown) (unknown) TAKE 1 CAPSULE BY MOUTH ONCE DAILY (units unknown) (unknown) (unknown) (no date) (unknown) (unknown) TAKE 1 TABLET BY MOUTH ONCE DAILY IN THE MORNING (units unknown) (unknown) (unknown) (no date) (unknown) (unknown) TAKE 1 TABLET BY MOUTH ONCE DAILY (units unknown) (unknown) (unknown) (no date) (unknown) (unknown) Take 6 tablets p.o. x1 day, then 5 tablets p.o. x1 day, then 4 tablets p.o. (units unknown) (unknown) (unknown) (no date) (unknown) (unknown) Temperature 98.2 F (units unknown) (unknown) (unknown) (no date) (unknown) (unknown) Temperature (units unknown) (unknown) (unknown) (no date) (unknown) (unknown) Time Seen by Provider: 02/16/23 18:03 (units unknown) (unknown) (unknown) (no date) (unknown) (unknown) Total Bilirubin (0.2-1.3) mg/dL (units unknown) (unknown) (unknown) (no date) (unknown) (unknown) Total Bilirubin 2.6 H (0.2-1.3) mg/dL (units unknown) (unknown) (unknown) (no date) (unknown) (unknown) Total Creatine Kinase (30-135) U/L (units unknown) (unknown) (unknown) (no date) (unknown) (unknown) Total Creatine Kinase 24 L (30-135) U/L (units unknown) (unknown) (unknown) (no date) (unknown) (unknown) Total Protein (6.3-8.2) g/dL (units unknown) (unknown) (unknown) (no date) (unknown) (unknown) Total Protein 6.9 (6.3-8.2) g/dL (units unknown) (unknown) (unknown) (no date) (unknown) (unknown) Troponin + CK Cardiac Panel Stat (units unknown) (unknown) (unknown) (no date) (unknown) (unknown) Troponin I (0.01-0.034) ng/mL (units unknown) (unknown) (unknown) (no date) (unknown) (unknown) Troponin I 0.030 (0.01-0.034) ng/mL (units unknown) (unknown) (unknown) (no date) (unknown) (unknown) Unstable angina (units unknown) (unknown) (unknown) (no date) (unknown) (unknown) Valvular heart disease (units unknown) (unknown) (unknown) (no date) (unknown) (unknown) Vital Signs - 8 hr (units unknown) (unknown) (unknown) (no date) (unknown) (unknown) Vital Signs (units unknown) (unknown) (unknown) (no date) (unknown) (unknown) Vital signs: (units unknown) (unknown) (unknown) (no date) (unknown) (unknown) WBC (4.5-11.0) X103/uL (units unknown) (unknown) (unknown) (no date) (unknown) (unknown) WBC 18.8 H (4.5-11.0) X103/uL (units unknown) (unknown) (unknown) (no date) (unknown) (unknown) Katy Salazar ARNP [Primary Care Provider] (units unknown) (unknown) (unknown) (no date) (unknown) (unknown) XR chest 1V Stat (units unknown) (unknown) (unknown) (no date) (unknown) (unknown) [Embedded Image Not Available] (units unknown) (unknown) (unknown) (no date) (unknown) (unknown) [From Bactrim] (units unknown) (unknown) (unknown) (no date) (unknown) (unknown) [From Trilipix] Upset (units unknown) (unknown) (unknown) (no date) (unknown) (unknown) acarbose Allergy Intermediate Abdominal Verified 02/09/23 18:21 (units unknown) (unknown) (unknown) (no date) (unknown) (unknown) albuterol 90 mcg/actuation Aerosol (units unknown) (unknown) (unknown) (no date) (unknown) (unknown) albuterol 90 mcg/actuation aerosol 90 mcg inhalation PRN Shortness Of 07/24/22 (units unknown) (unknown) (unknown) (no date) (unknown) (unknown) alcohol intake frequency: 0-2 drinks per day (units unknown) (unknown) (unknown) (no date) (unknown) (unknown) alcohol intake: never (units unknown) (unknown) (unknown) (no date) (unknown) (unknown) amlodipine Allergy Intermediate Verified 02/09/23 18:21 (units unknown) (unknown) (unknown) (no date) (unknown) (unknown) aspirin 81 MG tablet,delayed release (DR/EC) (units unknown) (unknown) (unknown) (no date) (unknown) (unknown) aspirin 81 mg tablet,delayed 81 mg PO QDAY ##0 09/14/17 07/24/22 (units unknown) (unknown) (unknown) (no date) (unknown) (unknown) atorvastatin 20 mg tablet (Lipitor) 40 mg PO QPM 07/08/22 07/24/22 (units unknown) (unknown) (unknown) (no date) (unknown) (unknown) atorvastatin [Lipitor] 20 mg tablet (units unknown) (unknown) (unknown) (no date) (unknown) (unknown) budesonide [From Symbicort] Allergy Mild Anxiety Verified 02/09/23 18:21 (units unknown) (unknown) (unknown) (no date) (unknown) (unknown) capsule,extended release 24 hr (units unknown) (unknown) (unknown) (no date) (unknown) (unknown) carvedilol Allergy Mild Rash Verified 02/09/23 18:21 (units unknown) (unknown) (unknown) (no date) (unknown) (unknown) chlorthalidone Allergy Intermediate Redness of Verified 02/09/23 18:21 (units unknown) (unknown) (unknown) (no date) (unknown) (unknown) choline fenofibrate Allergy Mild Gastrointestinal Verified 02/09/23 18:21 (units unknown) (unknown) (unknown) (no date) (unknown) (unknown) clopidogrel 75 mg tablet 75 mg PO QAM 07/24/22 07/24/22 (units unknown) (unknown) (unknown) (no date) (unknown) (unknown) clopidogrel 75 mg tablet (units unknown) (unknown) (unknown) (no date) (unknown) (unknown) cyclobenzaprine 10 mg Tablet (units unknown) (unknown) (unknown) (no date) (unknown) (unknown) cyclobenzaprine 10 mg tablet 10 mg PO TID PRN Muscle Spasm 07/24/22 07/24/22 (units unknown) (unknown) (unknown) (no date) (unknown) (unknown) diltiazem HCl 120 mg 120 mg PO QAM 07/08/22 07/24/22 (units unknown) (unknown) (unknown) (no date) (unknown) (unknown) diltiazem HCl [Cartia XT] 120 mg capsule,extended release 24hr (units unknown) (unknown) (unknown) (no date) (unknown) (unknown) doxazosin [From Cardura] Allergy Intermediate Rash Verified 02/09/23 18:21 (units unknown) (unknown) (unknown) (no date) (unknown) (unknown) doxycycline Allergy Intermediate Rash Verified 02/09/23 18:21 (units unknown) (unknown) (unknown) (no date) (unknown) (unknown) formoterol [From Symbicort] Allergy Mild Anxiety Verified 02/09/23 18:21 (units unknown) (unknown) (unknown) (no date) (unknown) (unknown) furosemide 40 mg tablet 40 mg PO QAM 07/08/22 07/08/22 (units unknown) (unknown) (unknown) (no date) (unknown) (unknown) furosemide 40 mg tablet (units unknown) (unknown) (unknown) (no date) (unknown) (unknown) gemfibrozil Allergy Intermediate Rash Verified 02/09/23 18:21 (units unknown) (unknown) (unknown) (no date) (unknown) (unknown) household members: family and children (units unknown) (unknown) (unknown) (no date) (unknown) (unknown) inhaler Breath (units unknown) (unknown) (unknown) (no date) (unknown) (unknown) ipratropium 0.5 mg-albuterol 3 mg ml inhalation PRN Shortness Of 09/26/22 (units unknown) (unknown) (unknown) (no date) (unknown) (unknown) ipratropium-albutero l 0.5 mg-3 mg(2.5 mg base)/3 mL solution for nebulization (units unknown) (unknown) (unknown) (no date) (unknown) (unknown) isosorbide mononitrate 120 mg 120 mg PO QAM 07/08/22 07/24/22 (units unknown) (unknown) (unknown) (no date) (unknown) (unknown) isosorbide mononitrate 120 mg tablet extended release 24 hr (units unknown) (unknown) (unknown) (no date) (unknown) (unknown) levofloxacin Allergy Intermediate Rash Verified 02/09/23 18:21 (units unknown) (unknown) (unknown) (no date) (unknown) (unknown) levothyroxine 88 mcg tablet 88 mcg PO QAM 07/08/22 07/24/22 (units unknown) (unknown) (unknown) (no date) (unknown) (unknown) levothyroxine 88 mcg tablet (units unknown) (unknown) (unknown) (no date) (unknown) (unknown) lisinopril 40 mg tablet 20 mg PO QAM 07/08/22 07/24/22 (units unknown) (unknown) (unknown) (no date) (unknown) (unknown) lisinopril 40 mg tablet (units unknown) (unknown) (unknown) (no date) (unknown) (unknown) losartan Allergy Intermediate Rash Verified 02/09/23 18:21 (units unknown) (unknown) (unknown) (no date) (unknown) (unknown) metoprolol AdvReac Intermediate Verified 02/09/23 18:21 (units unknown) (unknown) (unknown) (no date) (unknown) (unknown) metoprolol succinate 25 mg 25 mg PO DAILY 07/24/22 07/24/22 (units unknown) (unknown) (unknown) (no date) (unknown) (unknown) metoprolol succinate 25 mg tablet extended release 24 hr (units unknown) (unknown) (unknown) (no date) (unknown) (unknown) [facility] Allergy Intermediate Difficulty Verified 02/09/23 (units unknown) (unknown) (unknown) (no date) (unknown) (unknown) morning (units unknown) (unknown) (unknown) (no date) (unknown) (unknown) multivitamin 1 tab PO DAILY 09/10/18 07/24/22 (units unknown) (unknown) (unknown) (no date) (unknown) (unknown) multivitamin Tablet,Chewable (units unknown) (unknown) (unknown) (no date) (unknown) (unknown) nifedipine Allergy Intermediate Chills Verified 02/09/23 18:21 (units unknown) (unknown) (unknown) (no date) (unknown) (unknown) nitroglycerin 0.4 mg sublingual 0.4 mg sublingual Q5-15M PRN Chest 09/10/18 (units unknown) (unknown) (unknown) (no date) (unknown) (unknown) nitroglycerin [Nitrostat] 0.4 mg Tablet, Sublingual (units unknown) (unknown) (unknown) (no date) (unknown) (unknown) omega 4-uld-vob-fish oil 1,000 mg 1,000 mg PO DAILY 09/10/18 07/24/22 (units unknown) (unknown) (unknown) (no date) (unknown) (unknown) omega 0-gvg-kid-fish oil [Fish Oil] 1,000 mg (120 mg-180 mg) Capsule (units unknown) (unknown) (unknown) (no date) (unknown) (unknown) p.o. x1 day (units unknown) (unknown) (unknown) (no date) (unknown) (unknown) pack #21 ea (units unknown) (unknown) (unknown) (no date) (unknown) (unknown) patient states she forgets to take (units unknown) (unknown) (unknown) (no date) (unknown) (unknown) prednisone 10 mg tablets in a dose See Rx Instructions PO .COMPLEX 02/09/23 (units unknown) (unknown) (unknown) (no date) (unknown) (unknown) prednisone 10 mg tablets,dose pack (units unknown) (unknown) (unknown) (no date) (unknown) (unknown) pt has not started, it is at the pharmacy for her to picker (units unknown) (unknown) (unknown) (no date) (unknown) (unknown) pt instructed to stop medications. d/c 07/14/22 (units unknown) (unknown) (unknown) (no date) (unknown) (unknown) release (units unknown) (unknown) (unknown) (no date) (unknown) (unknown) soln (units unknown) (unknown) (unknown) (no date) (unknown) (unknown) sulfamethoxazole Allergy Intermediate Rash Verified 02/09/23 18:21 (units unknown) (unknown) (unknown) (no date) (unknown) (unknown) tablet (Nitrostat) Pain (units unknown) (unknown) (unknown) (no date) (unknown) (unknown) tablet,extended release 24 hr (units unknown) (unknown) (unknown) (no date) (unknown) (unknown) tobacco type: cigarettes (units unknown) (unknown) (unknown) (no date) (unknown) (unknown) torsemide 20 mg Tablet (units unknown) (unknown) (unknown) (no date) (unknown) (unknown) torsemide 20 mg tablet 20 mg PO DAILY 07/24/22 07/24/22 (units unknown) (unknown) (unknown) (no date) (unknown) (unknown) trimethoprim [From Bactrim] Allergy Intermediate Rash Verified 02/09/23 18:21 (units unknown) (unknown) (unknown) (no date) (unknown) (unknown) vitamin E 268 mg (400 unit) capsule 400 unit PO DAILY 09/10/18 07/24/22 (units unknown) (unknown) (unknown) (no date) (unknown) (unknown) vitamin E 400 unit Capsule (units unknown) (unknown) (unknown) (no date) (unknown) (unknown) x1 day, then 3 tablets p.o. x1 day, then 2 tablets p.o. x1 day, then 1 tablet (units unknown) (unknown) Result panel [id number] (unknown) (no date) (unknown) (unknown) (no value) (units unknown) (unknown) (unknown) (no date) (unknown) (unknown) <Electronically signed by Tan Fink D.O.> (units unknown) (unknown) (unknown) (no date) (unknown) (unknown) (120 mg-180 mg) capsule (Fish Oil) (units unknown) (unknown) (unknown) (no date) (unknown) (unknown) (2.5 mg base)/3 mL nebulization Breath Or Wheezing (units unknown) (unknown) (unknown) (no date) (unknown) (unknown) (Cartia XT) (units unknown) (unknown) (unknown) (no date) (unknown) (unknown) 0.4 mg SUBLINGUAL Q5-15M PRN (Reason: Chest Pain) (units unknown) (unknown) (unknown) (no date) (unknown) (unknown) [id number] (units unknown) (unknown) (unknown) (no date) (unknown) (unknown) 02/16/23 02/16/23 02/16/23 Range/Units (units unknown) (unknown) (unknown) (no date) (unknown) (unknown) 02/16/23 17:07 (units unknown) (unknown) (unknown) (no date) (unknown) (unknown) 02/16/23 17:08 (units unknown) (unknown) (unknown) (no date) (unknown) (unknown) 02/16/23 18:00 (units unknown) (unknown) (unknown) (no date) (unknown) (unknown) 02/16/23 18:05 (units unknown) (unknown) (unknown) (no date) (unknown) (unknown) 02/16/23 2039 (units unknown) (unknown) (unknown) (no date) (unknown) (unknown) 02/16/23 Range/Units (units unknown) (unknown) (unknown) (no date) (unknown) (unknown) 02/16/23 (units unknown) (unknown) (unknown) (no date) (unknown) (unknown) 07/24/22 (units unknown) (unknown) (unknown) (no date) (unknown) (unknown) 1 tab PO DAILY (units unknown) (unknown) (unknown) (no date) (unknown) (unknown) 1,000 mg PO DAILY (units unknown) (unknown) (unknown) (no date) (unknown) (unknown) 10 mg PO TID PRN (Reason: Muscle Spasm) (units unknown) (unknown) (unknown) (no date) (unknown) (unknown) 10 ml PO PRN (Reason: Cough) (units unknown) (unknown) (unknown) (no date) (unknown) (unknown) 10-100mg/5ml liquid. take 10ml by mouth every 4 hrs as needed for cough (units unknown) (unknown) (unknown) (no date) (unknown) (unknown) 120 mg PO QAM (units unknown) (unknown) (unknown) (no date) (unknown) (unknown) 16:59 02/16/23 (units unknown) (unknown) (unknown) (no date) (unknown) (unknown) 18:00 18:00 18:00 (units unknown) (unknown) (unknown) (no date) (unknown) (unknown) 18:05 (units unknown) (unknown) (unknown) (no date) (unknown) (unknown) 18:20 02/16/23 (units unknown) (unknown) (unknown) (no date) (unknown) (unknown) 18:21 (units unknown) (unknown) (unknown) (no date) (unknown) (unknown) 18:22 02/16/23 (units unknown) (unknown) (unknown) (no date) (unknown) (unknown) 18:22 (units unknown) (unknown) (unknown) (no date) (unknown) (unknown) 18:29 02/16/23 (units unknown) (unknown) (unknown) (no date) (unknown) (unknown) 18:30 02/16/23 (units unknown) (unknown) (unknown) (no date) (unknown) (unknown) 18:30 (units unknown) (unknown) (unknown) (no date) (unknown) (unknown) 19:00 02/16/23 (units unknown) (unknown) (unknown) (no date) (unknown) (unknown) 19:00 (units unknown) (unknown) (unknown) (no date) (unknown) (unknown) 20 mg PO DAILY (units unknown) (unknown) (unknown) (no date) (unknown) (unknown) 20 mg PO QAM (units unknown) (unknown) (unknown) (no date) (unknown) (unknown) 25 mg PO DAILY (units unknown) (unknown) (unknown) (no date) (unknown) (unknown) 250 mg PO DAILY 4 Days Qty: 4 0RF (units unknown) (unknown) (unknown) (no date) (unknown) (unknown) 40 mg PO QAM (units unknown) (unknown) (unknown) (no date) (unknown) (unknown) 40 mg PO QPM (units unknown) (unknown) (unknown) (no date) (unknown) (unknown) 400 unit PO DAILY (units unknown) (unknown) (unknown) (no date) (unknown) (unknown) 75 mg PO QAM (units unknown) (unknown) (unknown) (no date) (unknown) (unknown) 81 mg PO QDAY Qty: 0 (units unknown) (unknown) (unknown) (no date) (unknown) (unknown) 88 mcg PO QAM (units unknown) (unknown) (unknown) (no date) (unknown) (unknown) 90 mcg INHALATION PRN (Reason: Shortness Of Breath) (units unknown) (unknown) (unknown) (no date) (unknown) (unknown) ? (units unknown) (unknown) (unknown) (no date) (unknown) (unknown) ALT (<35) IU/L (units unknown) (unknown) (unknown) (no date) (unknown) (unknown) ALT 18 (<35) IU/L (units unknown) (unknown) (unknown) (no date) (unknown) (unknown) APTT (26-36) SECONDS (units unknown) (unknown) (unknown) (no date) (unknown) (unknown) APTT 31 (26-36) SECONDS (units unknown) (unknown) (unknown) (no date) (unknown) (unknown) AST (14-36) IU/L (units unknown) (unknown) (unknown) (no date) (unknown) (unknown) AST 22 (14-36) IU/L (units unknown) (unknown) (unknown) (no date) (unknown) (unknown) Activity Restrictions/Additio nal Instructions: (units unknown) (unknown) (unknown) (no date) (unknown) (unknown) Age/Sex: 87 / F (units unknown) (unknown) (unknown) (no date) (unknown) (unknown) Albumin (3.5-5.0) g/dL (units unknown) (unknown) (unknown) (no date) (unknown) (unknown) Albumin 3.8 (3.5-5.0) g/dL (units unknown) (unknown) (unknown) (no date) (unknown) (unknown) Albumin/Globulin Ratio (1.0-2.8) (units unknown) (unknown) (unknown) (no date) (unknown) (unknown) Albumin/Globulin Ratio 1.2 (1.0-2.8) (units unknown) (unknown) (unknown) (no date) (unknown) (unknown) Alkaline Phosphatase (38-126) U/L (units unknown) (unknown) (unknown) (no date) (unknown) (unknown) Alkaline Phosphatase 82 (38-126) U/L (units unknown) (unknown) (unknown) (no date) (unknown) (unknown) Allergies (units unknown) (unknown) (unknown) (no date) (unknown) (unknown) Allergy/AdvReac Type Severity Reaction Status Date / Time (units unknown) (unknown) (unknown) (no date) (unknown) (unknown) Aneurysm of infrarenal abdominal aorta (units unknown) (unknown) (unknown) (no date) (unknown) (unknown) Antibiotics) (units unknown) (unknown) (unknown) (no date) (unknown) (unknown) Appearance: grossly normal and well kempt (units unknown) (unknown) (unknown) (no date) (unknown) (unknown) Atherosclerotic calcifications of the aortic arch are present. (units unknown) (unknown) (unknown) (no date) (unknown) (unknown) Attestation: I personally reviewed and interpreted this ECG as follows: (units unknown) (unknown) (unknown) (no date) (unknown) (unknown) Auscultation: clear to auscultation bilaterally (units unknown) (unknown) (unknown) (no date) (unknown) (unknown) Azithromycin (Azithromycin 250 Mg Tablet) 500 mg PO NOW ONE (units unknown) (unknown) (unknown) (no date) (unknown) (unknown) BUN (7-17) mg/dL (units unknown) (unknown) (unknown) (no date) (unknown) (unknown) BUN 18 H (7-17) mg/dL (units unknown) (unknown) (unknown) (no date) (unknown) (unknown) BUN/Creatinine Ratio (6-22) (units unknown) (unknown) (unknown) (no date) (unknown) (unknown) BUN/Creatinine Ratio 17.0 (6-22) (units unknown) (unknown) (unknown) (no date) (unknown) (unknown) Baso # (Auto) (0-100) /uL (units unknown) (unknown) (unknown) (no date) (unknown) (unknown) Baso # (Auto) 100 (0-100) /uL (units unknown) (unknown) (unknown) (no date) (unknown) (unknown) Baso % (Auto) (0-2) % (units unknown) (unknown) (unknown) (no date) (unknown) (unknown) Baso % (Auto) 0.3 (0-2) % (units unknown) (unknown) (unknown) (no date) (unknown) (unknown) Bilateral carpal tunnel syndrome (units unknown) (unknown) (unknown) (no date) (unknown) (unknown) Blood Pressure 129/62 (units unknown) (unknown) (unknown) (no date) (unknown) (unknown) Blood Pressure 133/63 (units unknown) (unknown) (unknown) (no date) (unknown) (unknown) Blood Pressure 140/72 02/16/23 16:59 (units unknown) (unknown) (unknown) (no date) (unknown) (unknown) Blood Pressure 140/72 129/60 (units unknown) (unknown) (unknown) (no date) (unknown) (unknown) Bones and chest wall:? No suspicious bony lesions.? Overlying soft tissues (units unknown) (unknown) (unknown) (no date) (unknown) (unknown) Breathing (units unknown) (unknown) (unknown) (no date) (unknown) (unknown) CAD (coronary artery disease) (units unknown) (unknown) (unknown) (no date) (unknown) (unknown) CK-MB (CK-2) Rel Index TNP (units unknown) (unknown) (unknown) (no date) (unknown) (unknown) CK-MB (CK-2) Rel Index (units unknown) (unknown) (unknown) (no date) (unknown) (unknown) CK-MB (CK-2) TNP (units unknown) (unknown) (unknown) (no date) (unknown) (unknown) CK-MB (CK-2) (units unknown) (unknown) (unknown) (no date) (unknown) (unknown) COMPARISON:[facility], CR, XR CHEST 1V, 02/09/2023, 18:32. (units unknown) (unknown) (unknown) (no date) (unknown) (unknown) COPD (chronic obstructive pulmonary disease) with emphysema (units unknown) (unknown) (unknown) (no date) (unknown) (unknown) COVID19 -Nasal RAPID Stat (units unknown) (unknown) (unknown) (no date) (unknown) (unknown) Calcium (8.4-10.2) mg/dL (units unknown) (unknown) (unknown) (no date) (unknown) (unknown) Calcium 9.5 (8.4-10.2) mg/dL (units unknown) (unknown) (unknown) (no date) (unknown) (unknown) Carbon Dioxide (22-32) mmol/L (units unknown) (unknown) (unknown) (no date) (unknown) (unknown) Carbon Dioxide 32 (22-32) mmol/L (units unknown) (unknown) (unknown) (no date) (unknown) (unknown) Cardio (units unknown) (unknown) (unknown) (no date) (unknown) (unknown) Chest x-ray: (units unknown) (unknown) (unknown) (no date) (unknown) (unknown) Chief complaint: Weakness (units unknown) (unknown) (unknown) (no date) (unknown) (unknown) Chloride (98-107) mmol/L (units unknown) (unknown) (unknown) (no date) (unknown) (unknown) Chloride 93 L (98-107) mmol/L (units unknown) (unknown) (unknown) (no date) (unknown) (unknown) Clinical Impression: (units unknown) (unknown) (unknown) (no date) (unknown) (unknown) Complete Blood Count AUTO DIFF Stat (units unknown) (unknown) (unknown) (no date) (unknown) (unknown) Comprehensive Metabolic Panel Stat (units unknown) (unknown) (unknown) (no date) (unknown) (unknown) Const (units unknown) (unknown) (unknown) (no date) (unknown) (unknown) Course (units unknown) (unknown) (unknown) (no date) (unknown) (unknown) Creatinine (0.52-1.04) mg/dL (units unknown) (unknown) (unknown) (no date) (unknown) (unknown) Creatinine 1.06 H (0.52-1.04) mg/dL (units unknown) (unknown) (unknown) (no date) (unknown) (unknown) : 1935 Acct:[id number] (units unknown) (unknown) (unknown) (no date) (unknown) (unknown) Date of Service: 02/16/23 (units unknown) (unknown) (unknown) (no date) (unknown) (unknown) Departure (units unknown) (unknown) (unknown) (no date) (unknown) (unknown) Discharge Plan (units unknown) (unknown) (unknown) (no date) (unknown) (unknown) Discontinued Medications (units unknown) (unknown) (unknown) (no date) (unknown) (unknown) Documented By: DKB (units unknown) (unknown) (unknown) (no date) (unknown) (unknown) ECG Data (units unknown) (unknown) (unknown) (no date) (unknown) (unknown) ED Orders (units unknown) (unknown) (unknown) (no date) (unknown) (unknown) EKG-12 Lead Stat (units unknown) (unknown) (unknown) (no date) (unknown) (unknown) ER Physician: Tan Fink D.O. (units unknown) (unknown) (unknown) (no date) (unknown) (unknown) Effort + Inspection: respiratory effort not decreased and tachypneic (units unknown) (unknown) (unknown) (no date) (unknown) (unknown) Elevated TSH (units unknown) (unknown) (unknown) (no date) (unknown) (unknown) Emergency Report (units unknown) (unknown) (unknown) (no date) (unknown) (unknown) Eos # (Auto) (0-450) /uL (units unknown) (unknown) (unknown) (no date) (unknown) (unknown) Eos # (Auto) 0 (0-450) /uL (units unknown) (unknown) (unknown) (no date) (unknown) (unknown) Eos % (Auto) (2-4) % (units unknown) (unknown) (unknown) (no date) (unknown) (unknown) Eos % (Auto) 0.2 L (2-4) % (units unknown) (unknown) (unknown) (no date) (unknown) (unknown) Estimated GFR (>60) mL/min (units unknown) (unknown) (unknown) (no date) (unknown) (unknown) Estimated GFR 51 L (>60) mL/min (units unknown) (unknown) (unknown) (no date) (unknown) (unknown) Exam (units unknown) (unknown) (unknown) (no date) (unknown) (unknown) Extrem (units unknown) (unknown) (unknown) (no date) (unknown) (unknown) FINDINGS:? (units unknown) (unknown) (unknown) (no date) (unknown) (unknown) Family History (units unknown) (unknown) (unknown) (no date) (unknown) (unknown) Father Lung cancer (units unknown) (unknown) (unknown) (no date) (unknown) (unknown) Flonase 50 mcg (units unknown) (unknown) (unknown) (no date) (unknown) (unknown) Flonase PRN Dry Nasal Passages 07/24/22 (units unknown) (unknown) (unknown) (no date) (unknown) (unknown) GCS (units unknown) (unknown) (unknown) (no date) (unknown) (unknown) GI (units unknown) (unknown) (unknown) (no date) (unknown) (unknown) General (units unknown) (unknown) (unknown) (no date) (unknown) (unknown) General: No edema (units unknown) (unknown) (unknown) (no date) (unknown) (unknown) General: No ill appearing (units unknown) (unknown) (unknown) (no date) (unknown) (unknown) General: no rashes or lesions noted (units unknown) (unknown) (unknown) (no date) (unknown) (unknown) General: patient alert, patient awake, patient oriented x3 and moves all (units unknown) (unknown) (unknown) (no date) (unknown) (unknown) Bracey coma scale eye opening: Spontaneous (units unknown) (unknown) (unknown) (no date) (unknown) (unknown) Bracey coma scale motor response: Obey commands (units unknown) (unknown) (unknown) (no date) (unknown) (unknown) Adi coma scale total score: 15 (units unknown) (unknown) (unknown) (no date) (unknown) (unknown) Adi coma scale verbal response: Orientated (units unknown) (unknown) (unknown) (no date) (unknown) (unknown) Globulin (1.7-4.1) g/dL (units unknown) (unknown) (unknown) (no date) (unknown) (unknown) Globulin 3.1 (1.7-4.1) g/dL (units unknown) (unknown) (unknown) (no date) (unknown) (unknown) Glucose (80-110) mg/dL (units unknown) (unknown) (unknown) (no date) (unknown) (unknown) Glucose 105 (80-110) mg/dL (units unknown) (unknown) (unknown) (no date) (unknown) (unknown) H/O hysterectomy with oophorectomy (units unknown) (unknown) (unknown) (no date) (unknown) (unknown) H/O three vessel coronary artery bypass (units unknown) (unknown) (unknown) (no date) (unknown) (unknown) HENMT (units unknown) (unknown) (unknown) (no date) (unknown) (unknown) HPI - General Adult (units unknown) (unknown) (unknown) (no date) (unknown) (unknown) HPI narrative: (units unknown) (unknown) (unknown) (no date) (unknown) (unknown) HTN (hypertension) (units unknown) (unknown) (unknown) (no date) (unknown) (unknown) Hct (36-46) % (units unknown) (unknown) (unknown) (no date) (unknown) (unknown) Hct 38.4 (36-46) % (units unknown) (unknown) (unknown) (no date) (unknown) (unknown) Head: normal to inspection and normocephalic (units unknown) (unknown) (unknown) (no date) (unknown) (unknown) Hgb (12.0-16.0) g/dL (units unknown) (unknown) (unknown) (no date) (unknown) (unknown) Hgb 12.8 (12.0-16.0) g/dL (units unknown) (unknown) (unknown) (no date) (unknown) (unknown) History of Present Illness (units unknown) (unknown) (unknown) (no date) (unknown) (unknown) Home Medications (units unknown) (unknown) (unknown) (no date) (unknown) (unknown) Hx of heart artery stent (units unknown) (unknown) (unknown) (no date) (unknown) (unknown) Hyperlipidemia (units unknown) (unknown) (unknown) (no date) (unknown) (unknown) IMPRESSION:? Interval development of right mid lung zone focal airspace (units unknown) (unknown) (unknown) (no date) (unknown) (unknown) INDICATIONS:? chest pain (units unknown) (unknown) (unknown) (no date) (unknown) (unknown) INHALATION PRN (Reason: Shortness Of Breath Or Wheezing) (units unknown) (unknown) (unknown) (no date) (unknown) (unknown) INR (0.9-1.3) (units unknown) (unknown) (unknown) (no date) (unknown) (unknown) INR 1.3 (0.9-1.3) (units unknown) (unknown) (unknown) (no date) (unknown) (unknown) Imaging Data (units unknown) (unknown) (unknown) (no date) (unknown) (unknown) Initial Vital Signs (units unknown) (unknown) (unknown) (no date) (unknown) (unknown) Initial Vital Signs: (units unknown) (unknown) (unknown) (no date) (unknown) (unknown) Inspection: non-distended (units unknown) (unknown) (unknown) (no date) (unknown) (unknown) Instructions: DI for Pneumonia -- Adult (units unknown) (unknown) (unknown) (no date) (unknown) (unknown) Interpretation: (units unknown) (unknown) (unknown) (no date) (unknown) (unknown) [address] [address] (units unknown) (unknown) (unknown) (no date) (unknown) (unknown) LVH (units unknown) (unknown) (unknown) (no date) (unknown) (unknown) Lab Data (units unknown) (unknown) (unknown) (no date) (unknown) (unknown) Lab Results (units unknown) (unknown) (unknown) (no date) (unknown) (unknown) Lab results reviewed: Yes I reviewed the patient's lab results. (units unknown) (unknown) (unknown) (no date) (unknown) (unknown) Labs: (units unknown) (unknown) (unknown) (no date) (unknown) (unknown) Last Admin: 02/16/23 19:07 Dose: 500 mg (units unknown) (unknown) (unknown) (no date) (unknown) (unknown) Limitations: no limitations (units unknown) (unknown) (unknown) (no date) (unknown) (unknown) Lipase (23-300) U/L (units unknown) (unknown) (unknown) (no date) (unknown) (unknown) Lipase 31 (23-300) U/L (units unknown) (unknown) (unknown) (no date) (unknown) (unknown) Lipase Stat (units unknown) (unknown) (unknown) (no date) (unknown) (unknown) Lungs and pleura:? Patchy consolidation of the right mid lung zone which has (units unknown) (unknown) (unknown) (no date) (unknown) (unknown) Lymph # (Auto) (7362-2571) /uL (units unknown) (unknown) (unknown) (no date) (unknown) (unknown) Lymph # (Auto) 900 L (5233-1642) /uL (units unknown) (unknown) (unknown) (no date) (unknown) (unknown) Lymph % (Auto) (25-40) % (units unknown) (unknown) (unknown) (no date) (unknown) (unknown) Lymph % (Auto) 4.9 L (25-40) % (units unknown) (unknown) (unknown) (no date) (unknown) (unknown) MCH (26-34) PG (units unknown) (unknown) (unknown) (no date) (unknown) (unknown) MCH 28.5 (26-34) PG (units unknown) (unknown) (unknown) (no date) (unknown) (unknown) MCHC (30-36) % (units unknown) (unknown) (unknown) (no date) (unknown) (unknown) MCHC 33.4 (30-36) % (units unknown) (unknown) (unknown) (no date) (unknown) (unknown) MCV (80-100) fL (units unknown) (unknown) (unknown) (no date) (unknown) (unknown) MCV 85.5 (80-100) fL (units unknown) (unknown) (unknown) (no date) (unknown) (unknown) MDM Narrative (units unknown) (unknown) (unknown) (no date) (unknown) (unknown) Magnesium (1.6-2.3) mg/dL (units unknown) (unknown) (unknown) (no date) (unknown) (unknown) Magnesium 1.9 (1.6-2.3) mg/dL (units unknown) (unknown) (unknown) (no date) (unknown) (unknown) Magnesium Stat (units unknown) (unknown) (unknown) (no date) (unknown) (unknown) [place] per your request. Continue to use your oxygen as needed. Continue the (units unknown) (unknown) (unknown) (no date) (unknown) (unknown) Mediastinum:? Mediastinal contours appear normal.? Heart size is enlarged.? (units unknown) (unknown) (unknown) (no date) (unknown) (unknown) Medical Decision Making (units unknown) (unknown) (unknown) (no date) (unknown) (unknown) Medical History (units unknown) (unknown) (unknown) (no date) (unknown) (unknown) Medical Records (units unknown) (unknown) (unknown) (no date) (unknown) (unknown) Medical decision making narrative: (units unknown) (unknown) (unknown) (no date) (unknown) (unknown) Medical records reviewed: Yes I reviewed the patient's medical records. (units unknown) (unknown) (unknown) (no date) (unknown) (unknown) Medication Instructions Recorded Confirmed (units unknown) (unknown) (unknown) (no date) (unknown) (unknown) Medication Instructions Recorded (units unknown) (unknown) (unknown) (no date) (unknown) (unknown) Mode of arrival: EMS (units unknown) (unknown) (unknown) (no date) (unknown) (unknown) [place] # (Auto) (0-900) /uL (units unknown) (unknown) (unknown) (no date) (unknown) (unknown) [place] # (Auto) 1200 H (0-900) /uL (units unknown) (unknown) (unknown) (no date) (unknown) (unknown) [place] % (Auto) (3-14) % (units unknown) (unknown) (unknown) (no date) (unknown) (unknown) [place] % (Auto) 6.6 (3-14) % (units unknown) (unknown) (unknown) (no date) (unknown) (unknown) Mother COPD (chronic obstructive pulmonary disease) (units unknown) (unknown) (unknown) (no date) (unknown) (unknown) Neuro (units unknown) (unknown) (unknown) (no date) (unknown) (unknown) Neut # (Auto) (4063-4606) /uL (units unknown) (unknown) (unknown) (no date) (unknown) (unknown) Neut # (Auto) 50424 H (2584-2162) /uL (units unknown) (unknown) (unknown) (no date) (unknown) (unknown) Neut % (Auto) (50-75) % (units unknown) (unknown) (unknown) (no date) (unknown) (unknown) Neut % (Auto) 88.0 H (50-75) % (units unknown) (unknown) (unknown) (no date) (unknown) (unknown) New (units unknown) (unknown) (unknown) (no date) (unknown) (unknown) No Action (units unknown) (unknown) (unknown) (no date) (unknown) (unknown) Nonspecific ST T wave changes (units unknown) (unknown) (unknown) (no date) (unknown) (unknown) Normal axis (units unknown) (unknown) (unknown) (no date) (unknown) (unknown) Ordered: (units unknown) (unknown) (unknown) (no date) (unknown) (unknown) Orders (units unknown) (unknown) (unknown) (no date) (unknown) (unknown) Oxygen Delivery Method Nasal Cannula 02/16/23 16:59 (units unknown) (unknown) (unknown) (no date) (unknown) (unknown) Oxygen Delivery Method Nasal Cannula Nasal Cannula (units unknown) (unknown) (unknown) (no date) (unknown) (unknown) Oxygen Delivery Method Nasal Cannula (units unknown) (unknown) (unknown) (no date) (unknown) (unknown) Oxygen Flow Rate 2 02/16/23 16:59 (units unknown) (unknown) (unknown) (no date) (unknown) (unknown) Oxygen Flow Rate 2 2 (units unknown) (unknown) (unknown) (no date) (unknown) (unknown) Oxygen Flow Rate 2 (units unknown) (unknown) (unknown) (no date) (unknown) (unknown) PRN (Reason: Dry Nasal Passages) (units unknown) (unknown) (unknown) (no date) (unknown) (unknown) PROCEDURE:? XR CHEST 1V (units unknown) (unknown) (unknown) (no date) (unknown) (unknown) PT (10.1-12.7) SECONDS (units unknown) (unknown) (unknown) (no date) (unknown) (unknown) PT 15.3 H (10.1-12.7) SECONDS (units unknown) (unknown) (unknown) (no date) (unknown) (unknown) PTT Partial Thromboplastin Jorge Luis Stat (units unknown) (unknown) (unknown) (no date) (unknown) (unknown) Pain (units unknown) (unknown) (unknown) (no date) (unknown) (unknown) Patient Comments: (units unknown) (unknown) (unknown) (no date) (unknown) (unknown) Patient Disposition: Home (units unknown) (unknown) (unknown) (no date) (unknown) (unknown) Patient History (units unknown) (unknown) (unknown) (no date) (unknown) (unknown) Patient does have leukocytosis however she is on steroids and her chest x-ray (units unknown) (unknown) (unknown) (no date) (unknown) (unknown) Patient is an 87-year-old female. Does have history of COPD. Is on home (units unknown) (unknown) (unknown) (no date) (unknown) (unknown) Patient: Roselyn Mejia MR#: [id number] (units unknown) (unknown) (unknown) (no date) (unknown) (unknown) Plt Count (150-400) X103/uL (units unknown) (unknown) (unknown) (no date) (unknown) (unknown) Plt Count 247 (150-400) X103/uL (units unknown) (unknown) (unknown) (no date) (unknown) (unknown) Pneumonia (units unknown) (unknown) (unknown) (no date) (unknown) (unknown) Potassium (3.4-5.1) mmol/L (units unknown) (unknown) (unknown) (no date) (unknown) (unknown) Potassium 4.0 (3.4-5.1) mmol/L (units unknown) (unknown) (unknown) (no date) (unknown) (unknown) Prescriptions: (units unknown) (unknown) (unknown) (no date) (unknown) (unknown) Previous Rx's (units unknown) (unknown) (unknown) (no date) (unknown) (unknown) Prothrombin Time INR Stat (units unknown) (unknown) (unknown) (no date) (unknown) (unknown) Psych (units unknown) (unknown) (unknown) (no date) (unknown) (unknown) Pulse Oximetry 94 02/16/23 16:59 (units unknown) (unknown) (unknown) (no date) (unknown) (unknown) Pulse Oximetry 94 (units unknown) (unknown) (unknown) (no date) (unknown) (unknown) Pulse Oximetry 95 95 (units unknown) (unknown) (unknown) (no date) (unknown) (unknown) Pulse Oximetry 95 (units unknown) (unknown) (unknown) (no date) (unknown) (unknown) Pulse Rate 76 74 (units unknown) (unknown) (unknown) (no date) (unknown) (unknown) Pulse Rate 76 (units unknown) (unknown) (unknown) (no date) (unknown) (unknown) Pulse Rate 82 02/16/23 16:59 (units unknown) (unknown) (unknown) (no date) (unknown) (unknown) Pulse Rate 82 77 (units unknown) (unknown) (unknown) (no date) (unknown) (unknown) RBC (4.0-5.2) X106/uL (units unknown) (unknown) (unknown) (no date) (unknown) (unknown) RBC 4.49 (4.0-5.2) X106/uL (units unknown) (unknown) (unknown) (no date) (unknown) (unknown) RDW (11.6-14.8) % (units unknown) (unknown) (unknown) (no date) (unknown) (unknown) RDW 15.6 H (11.6-14.8) % (units unknown) (unknown) (unknown) (no date) (unknown) (unknown) ROS Unobtainable: All systems reviewed + are unremarkable except as noted in HPI (units unknown) (unknown) (unknown) (no date) (unknown) (unknown) Radiologist's Impression: (units unknown) (unknown) (unknown) (no date) (unknown) (unknown) Rate: regular rate (units unknown) (unknown) (unknown) (no date) (unknown) (unknown) Recommend follow up chest radiograph 4-6 weeks after treatment to document (units unknown) (unknown) (unknown) (no date) (unknown) (unknown) Referrals: (units unknown) (unknown) (unknown) (no date) (unknown) (unknown) Related Data (units unknown) (unknown) (unknown) (no date) (unknown) (unknown) Resp (units unknown) (unknown) (unknown) (no date) (unknown) (unknown) Respiratory Rate 24 02/16/23 16:59 (units unknown) (unknown) (unknown) (no date) (unknown) (unknown) Respiratory Rate 24 (units unknown) (unknown) (unknown) (no date) (unknown) (unknown) Respiratory Rate 30 H 30 H (units unknown) (unknown) (unknown) (no date) (unknown) (unknown) Respiratory Rate 31 H (units unknown) (unknown) (unknown) (no date) (unknown) (unknown) Review of Systems (units unknown) (unknown) (unknown) (no date) (unknown) (unknown) Right bundle-branch block (units unknown) (unknown) (unknown) (no date) (unknown) (unknown) Robitussin DM To Go 10 ml PO PRN Cough 07/24/22 (units unknown) (unknown) (unknown) (no date) (unknown) (unknown) Robitussin DM To Go (units unknown) (unknown) (unknown) (no date) (unknown) (unknown) Rx Instructions: (units unknown) (unknown) (unknown) (no date) (unknown) (unknown) SARS-CoV-2 (PCR) (Negative) (units unknown) (unknown) (unknown) (no date) (unknown) (unknown) SARS-CoV-2 (PCR) Negative (Negative) (units unknown) (unknown) (unknown) (no date) (unknown) (unknown) Scores (units unknown) (unknown) (unknown) (no date) (unknown) (unknown) See Rx Instructions .ROUTE .COMPLEX Qty: 21 0RF (units unknown) (unknown) (unknown) (no date) (unknown) (unknown) She did tolerate an oral dose of azithromycin. She is allergic to (units unknown) (unknown) (unknown) (no date) (unknown) (unknown) Signed By: (units unknown) (unknown) (unknown) (no date) (unknown) (unknown) Sinus rhythm (units unknown) (unknown) (unknown) (no date) (unknown) (unknown) Skin (units unknown) (unknown) (unknown) (no date) (unknown) (unknown) Smoking Status: Former smoker (units unknown) (unknown) (unknown) (no date) (unknown) (unknown) Social History (units unknown) (unknown) (unknown) (no date) (unknown) (unknown) Sodium (137-145) mmol/L (units unknown) (unknown) (unknown) (no date) (unknown) (unknown) Sodium 130 L (137-145) mmol/L (units unknown) (unknown) (unknown) (no date) (unknown) (unknown) Source: patient and EMS (units unknown) (unknown) (unknown) (no date) (unknown) (unknown) Stable cardiomegaly. (units unknown) (unknown) (unknown) (no date) (unknown) (unknown) Stand Alone Forms: Patient Portal/API (units unknown) (unknown) (unknown) (no date) (unknown) (unknown) Stated complaint: Gen weak/ cough/could (units unknown) (unknown) (unknown) (no date) (unknown) (unknown) Status post cholecystectomy (units unknown) (unknown) (unknown) (no date) (unknown) (unknown) Stop: 02/16/23 18:46 (units unknown) (unknown) (unknown) (no date) (unknown) (unknown) Substance Use Type: does not use (units unknown) (unknown) (unknown) (no date) (unknown) (unknown) Sulfa (Sulfonamide Allergy Intermediate rash Verified 02/09/23 18:21 (units unknown) (unknown) (unknown) (no date) (unknown) (unknown) Surgical History (units unknown) (unknown) (unknown) (no date) (unknown) (unknown) Surgical changes and devices:? Median sternotomy wires are present and appear (units unknown) (unknown) (unknown) (no date) (unknown) (unknown) TAKE 1 CAPSULE BY MOUTH ONCE DAILY (units unknown) (unknown) (unknown) (no date) (unknown) (unknown) TAKE 1 TABLET BY MOUTH ONCE DAILY IN THE MORNING (units unknown) (unknown) (unknown) (no date) (unknown) (unknown) TAKE 1 TABLET BY MOUTH ONCE DAILY (units unknown) (unknown) (unknown) (no date) (unknown) (unknown) TECHNIQUE:? One view of the chest was acquired.? (units unknown) (unknown) (unknown) (no date) (unknown) (unknown) Take 6 tablets p.o. x1 day, then 5 tablets p.o. x1 day, then 4 tablets p.o. (units unknown) (unknown) (unknown) (no date) (unknown) (unknown) Temperature 98.2 F (units unknown) (unknown) (unknown) (no date) (unknown) (unknown) Temperature (units unknown) (unknown) (unknown) (no date) (unknown) (unknown) Time Seen by Provider: 02/16/23 18:03 (units unknown) (unknown) (unknown) (no date) (unknown) (unknown) Total Bilirubin (0.2-1.3) mg/dL (units unknown) (unknown) (unknown) (no date) (unknown) (unknown) Total Bilirubin 2.6 H (0.2-1.3) mg/dL (units unknown) (unknown) (unknown) (no date) (unknown) (unknown) Total Creatine Kinase (30-135) U/L (units unknown) (unknown) (unknown) (no date) (unknown) (unknown) Total Creatine Kinase 24 L (30-135) U/L (units unknown) (unknown) (unknown) (no date) (unknown) (unknown) Total Protein (6.3-8.2) g/dL (units unknown) (unknown) (unknown) (no date) (unknown) (unknown) Total Protein 6.9 (6.3-8.2) g/dL (units unknown) (unknown) (unknown) (no date) (unknown) (unknown) Troponin + CK Cardiac Panel Stat (units unknown) (unknown) (unknown) (no date) (unknown) (unknown) Troponin I (0.01-0.034) ng/mL (units unknown) (unknown) (unknown) (no date) (unknown) (unknown) Troponin I 0.030 (0.01-0.034) ng/mL (units unknown) (unknown) (unknown) (no date) (unknown) (unknown) Unstable angina (units unknown) (unknown) (unknown) (no date) (unknown) (unknown) Valvular heart disease (units unknown) (unknown) (unknown) (no date) (unknown) (unknown) Vital Signs - 8 hr (units unknown) (unknown) (unknown) (no date) (unknown) (unknown) Vital Signs (units unknown) (unknown) (unknown) (no date) (unknown) (unknown) Vital signs: (units unknown) (unknown) (unknown) (no date) (unknown) (unknown) WBC (4.5-11.0) X103/uL (units unknown) (unknown) (unknown) (no date) (unknown) (unknown) WBC 18.8 H (4.5-11.0) X103/uL (units unknown) (unknown) (unknown) (no date) (unknown) (unknown) Katy Salazar, BECKY [Primary Care Provider] (units unknown) (unknown) (unknown) (no date) (unknown) (unknown) We gave you your 1st dose of antibiotics here in the emergency department. Your (units unknown) (unknown) (unknown) (no date) (unknown) (unknown) XR chest 1V Stat (units unknown) (unknown) (unknown) (no date) (unknown) (unknown) [Embedded Image Not Available] (units unknown) (unknown) (unknown) (no date) (unknown) (unknown) [From Bactrim] (units unknown) (unknown) (unknown) (no date) (unknown) (unknown) [From Trilipix] Upset (units unknown) (unknown) (unknown) (no date) (unknown) (unknown) acarbose Allergy Intermediate Abdominal Verified 02/09/23 18:21 (units unknown) (unknown) (unknown) (no date) (unknown) (unknown) albuterol 90 mcg/actuation Aerosol (units unknown) (unknown) (unknown) (no date) (unknown) (unknown) albuterol 90 mcg/actuation aerosol 90 mcg inhalation PRN Shortness Of 07/24/22 (units unknown) (unknown) (unknown) (no date) (unknown) (unknown) alcohol intake frequency: 0-2 drinks per day (units unknown) (unknown) (unknown) (no date) (unknown) (unknown) alcohol intake: never (units unknown) (unknown) (unknown) (no date) (unknown) (unknown) amlodipine Allergy Intermediate Verified 02/09/23 18:21 (units unknown) (unknown) (unknown) (no date) (unknown) (unknown) and below (units unknown) (unknown) (unknown) (no date) (unknown) (unknown) antibiotics. Given the fact that she has oxygen at home. Is at her baseline (units unknown) (unknown) (unknown) (no date) (unknown) (unknown) appear (units unknown) (unknown) (unknown) (no date) (unknown) (unknown) as directed. She lives at home with her son. (units unknown) (unknown) (unknown) (no date) (unknown) (unknown) aspirin 81 MG tablet,delayed release (DR/EC) (units unknown) (unknown) (unknown) (no date) (unknown) (unknown) aspirin 81 mg tablet,delayed 81 mg PO QDAY ##0 09/14/17 07/24/22 (units unknown) (unknown) (unknown) (no date) (unknown) (unknown) atorvastatin 20 mg tablet (Lipitor) 40 mg PO QPM 07/08/22 07/24/22 (units unknown) (unknown) (unknown) (no date) (unknown) (unknown) atorvastatin [Lipitor] 20 mg tablet (units unknown) (unknown) (unknown) (no date) (unknown) (unknown) azithromycin 250 mg tablet 250 mg PO DAILY 4 days #4 tabs 02/16/23 (units unknown) (unknown) (unknown) (no date) (unknown) (unknown) azithromycin 250 mg tablet (units unknown) (unknown) (unknown) (no date) (unknown) (unknown) baseline for her. She is not in any respiratory distress. Not tachycardic. (units unknown) (unknown) (unknown) (no date) (unknown) (unknown) budesonide [From Symbicort] Allergy Mild Anxiety Verified 02/09/23 18:21 (units unknown) (unknown) (unknown) (no date) (unknown) (unknown) capsule,extended release 24 hr (units unknown) (unknown) (unknown) (no date) (unknown) (unknown) carvedilol Allergy Mild Rash Verified 02/09/23 18:21 (units unknown) (unknown) (unknown) (no date) (unknown) (unknown) chlorthalidone Allergy Intermediate Redness of Verified 02/09/23 18:21 (units unknown) (unknown) (unknown) (no date) (unknown) (unknown) choline fenofibrate Allergy Mild Gastrointestinal Verified 02/09/23 18:21 (units unknown) (unknown) (unknown) (no date) (unknown) (unknown) clopidogrel 75 mg tablet 75 mg PO QAM 07/24/22 07/24/22 (units unknown) (unknown) (unknown) (no date) (unknown) (unknown) clopidogrel 75 mg tablet (units unknown) (unknown) (unknown) (no date) (unknown) (unknown) compared to the prior study.? Patchy left basilar opacities also more (units unknown) (unknown) (unknown) (no date) (unknown) (unknown) consolidations in the left hemithorax.? No pneumothorax.? No substantial pleural (units unknown) (unknown) (unknown) (no date) (unknown) (unknown) cyclobenzaprine 10 mg Tablet (units unknown) (unknown) (unknown) (no date) (unknown) (unknown) cyclobenzaprine 10 mg tablet 10 mg PO TID PRN Muscle Spasm 07/24/22 07/24/22 (units unknown) (unknown) (unknown) (no date) (unknown) (unknown) diltiazem HCl 120 mg 120 mg PO QAM 07/08/22 07/24/22 (units unknown) (unknown) (unknown) (no date) (unknown) (unknown) diltiazem HCl [Cartia XT] 120 mg capsule,extended release 24hr (units unknown) (unknown) (unknown) (no date) (unknown) (unknown) disease/pneumonia. (units unknown) (unknown) (unknown) (no date) (unknown) (unknown) doxazosin [From Cardura] Allergy Intermediate Rash Verified 02/09/23 18:21 (units unknown) (unknown) (unknown) (no date) (unknown) (unknown) doxycycline Allergy Intermediate Rash Verified 02/09/23 18:21 (units unknown) (unknown) (unknown) (no date) (unknown) (unknown) effusion.? Background chronic interstitial changes as before. (units unknown) (unknown) (unknown) (no date) (unknown) (unknown) extremities (units unknown) (unknown) (unknown) (no date) (unknown) (unknown) findings and/or return to baseline examination. (units unknown) (unknown) (unknown) (no date) (unknown) (unknown) fluoroquinolones. It appears that the pneumonia on the x-ray today is new. Is (units unknown) (unknown) (unknown) (no date) (unknown) (unknown) formoterol [From Symbicort] Allergy Mild Anxiety Verified 02/09/23 18:21 (units unknown) (unknown) (unknown) (no date) (unknown) (unknown) furosemide 40 mg tablet 40 mg PO QAM 07/08/22 07/08/22 (units unknown) (unknown) (unknown) (no date) (unknown) (unknown) furosemide 40 mg tablet (units unknown) (unknown) (unknown) (no date) (unknown) (unknown) gemfibrozil Allergy Intermediate Rash Verified 02/09/23 18:21 (units unknown) (unknown) (unknown) (no date) (unknown) (unknown) given her dose here today she will not need to picker her antibiotics until (units unknown) (unknown) (unknown) (no date) (unknown) (unknown) household members: family and children (units unknown) (unknown) (unknown) (no date) (unknown) (unknown) inhaler Breath (units unknown) (unknown) (unknown) (no date) (unknown) (unknown) intact. (units unknown) (unknown) (unknown) (no date) (unknown) (unknown) ipratropium 0.5 mg-albuterol 3 mg ml inhalation PRN Shortness Of 07/24/22 (units unknown) (unknown) (unknown) (no date) (unknown) (unknown) ipratropium-albutero l 0.5 mg-3 mg(2.5 mg base)/3 mL solution for nebulization (units unknown) (unknown) (unknown) (no date) (unknown) (unknown) isosorbide mononitrate 120 mg 120 mg PO QAM 07/08/22 07/24/22 (units unknown) (unknown) (unknown) (no date) (unknown) (unknown) isosorbide mononitrate 120 mg tablet extended release 24 hr (units unknown) (unknown) (unknown) (no date) (unknown) (unknown) levofloxacin Allergy Intermediate Rash Verified 02/09/23 18:21 (units unknown) (unknown) (unknown) (no date) (unknown) (unknown) levothyroxine 88 mcg tablet 88 mcg PO QAM 07/08/22 07/24/22 (units unknown) (unknown) (unknown) (no date) (unknown) (unknown) levothyroxine 88 mcg tablet (units unknown) (unknown) (unknown) (no date) (unknown) (unknown) lisinopril 40 mg tablet 20 mg PO QAM 07/08/22 07/24/22 (units unknown) (unknown) (unknown) (no date) (unknown) (unknown) lisinopril 40 mg tablet (units unknown) (unknown) (unknown) (no date) (unknown) (unknown) losartan Allergy Intermediate Rash Verified 02/09/23 18:21 (units unknown) (unknown) (unknown) (no date) (unknown) (unknown) metoprolol AdvReac Intermediate Verified 02/09/23 18:21 (units unknown) (unknown) (unknown) (no date) (unknown) (unknown) metoprolol succinate 25 mg 25 mg PO DAILY 07/24/22 07/24/22 (units unknown) (unknown) (unknown) (no date) (unknown) (unknown) metoprolol succinate 25 mg tablet extended release 24 hr (units unknown) (unknown) (unknown) (no date) (unknown) (unknown) montelukast [From [facility]] Allergy Intermediate Difficulty Verified 02/09/23 (units unknown) (unknown) (unknown) (no date) (unknown) (unknown) morning (units unknown) (unknown) (unknown) (no date) (unknown) (unknown) most likely what is causing her presenting symptoms today. She does require an (units unknown) (unknown) (unknown) (no date) (unknown) (unknown) multivitamin 1 tab PO DAILY 09/10/18 07/24/22 (units unknown) (unknown) (unknown) (no date) (unknown) (unknown) multivitamin Tablet,Chewable (units unknown) (unknown) (unknown) (no date) (unknown) (unknown) new or worsening symptoms. (units unknown) (unknown) (unknown) (no date) (unknown) (unknown) next dose will be tomorrow Saturday 02/17. The prescription was sent to [facility] (units unknown) (unknown) (unknown) (no date) (unknown) (unknown) nifedipine Allergy Intermediate Chills Verified 02/09/23 18:21 (units unknown) (unknown) (unknown) (no date) (unknown) (unknown) nitroglycerin 0.4 mg sublingual 0.4 mg sublingual Q5-15M PRN Chest 09/10/18 (units unknown) (unknown) (unknown) (no date) (unknown) (unknown) nitroglycerin [Nitrostat] 0.4 mg Tablet, Sublingual (units unknown) (unknown) (unknown) (no date) (unknown) (unknown) nontoxic appearing we will discharge home with oral antibiotics. Since she was (units unknown) (unknown) (unknown) (no date) (unknown) (unknown) not having any chest pain but does have some shortness of breath. No abdominal (units unknown) (unknown) (unknown) (no date) (unknown) (unknown) omega 6-ald-vub-fish oil 1,000 mg 1,000 mg PO DAILY 09/10/18 07/24/22 (units unknown) (unknown) (unknown) (no date) (unknown) (unknown) omega 0-vgz-pde-fish oil [Fish Oil] 1,000 mg (120 mg-180 mg) Capsule (units unknown) (unknown) (unknown) (no date) (unknown) (unknown) ouple days ago. She is on 2 L of oxygen satting in the mid upper 90s. This is (units unknown) (unknown) (unknown) (no date) (unknown) (unknown) oxygen. Was seen here in the emergency department a couple days ago for what (units unknown) (unknown) (unknown) (no date) (unknown) (unknown) p.o. x1 day (units unknown) (unknown) (unknown) (no date) (unknown) (unknown) pack #21 ea (units unknown) (unknown) (unknown) (no date) (unknown) (unknown) pain. No swelling in her legs. She states she is taking all of her medications (units unknown) (unknown) (unknown) (no date) (unknown) (unknown) patient states she forgets to take (units unknown) (unknown) (unknown) (no date) (unknown) (unknown) poorly. Has had a cough. Has not had to increase her oxygen at home. She is (units unknown) (unknown) (unknown) (no date) (unknown) (unknown) prednisone 10 mg tablets in a dose See Rx Instructions PO .COMPLEX 02/09/23 (units unknown) (unknown) (unknown) (no date) (unknown) (unknown) prednisone 10 mg tablets,dose pack (units unknown) (unknown) (unknown) (no date) (unknown) (unknown) primary doctor. She stated that over the past 12-24 hours she is felt more (units unknown) (unknown) (unknown) (no date) (unknown) (unknown) progressed (units unknown) (unknown) (unknown) (no date) (unknown) (unknown) prominent.? No (units unknown) (unknown) (unknown) (no date) (unknown) (unknown) pt has not started, it is at the pharmacy for her to picker (units unknown) (unknown) (unknown) (no date) (unknown) (unknown) pt instructed to stop medications. d/c 07/14/22 (units unknown) (unknown) (unknown) (no date) (unknown) (unknown) release (units unknown) (unknown) (unknown) (no date) (unknown) (unknown) required more oxygen. She expressed understanding and agreement with plan. (units unknown) (unknown) (unknown) (no date) (unknown) (unknown) resolution of (units unknown) (unknown) (unknown) (no date) (unknown) (unknown) respiratory status. Is able to tolerate oral intake. In the fact she is (units unknown) (unknown) (unknown) (no date) (unknown) (unknown) rest of your medications as directed. Return to the emergency department for (units unknown) (unknown) (unknown) (no date) (unknown) (unknown) return precautions and told to return if any of her symptoms worsen or if she (units unknown) (unknown) (unknown) (no date) (unknown) (unknown) soln (units unknown) (unknown) (unknown) (no date) (unknown) (unknown) start on day 2 of therapy (units unknown) (unknown) (unknown) (no date) (unknown) (unknown) steroids but no antibiotics. Patient states she is on steroids but is unsure (units unknown) (unknown) (unknown) (no date) (unknown) (unknown) sulfamethoxazole Allergy Intermediate Rash Verified 02/09/23 18:21 (units unknown) (unknown) (unknown) (no date) (unknown) (unknown) tablet (Nitrostat) Pain (units unknown) (unknown) (unknown) (no date) (unknown) (unknown) tablet,extended release 24 hr (units unknown) (unknown) (unknown) (no date) (unknown) (unknown) tobacco type: cigarettes (units unknown) (unknown) (unknown) (no date) (unknown) (unknown) today does appear to have a new pneumonia from comparison of a chest x-ray a c (units unknown) (unknown) (unknown) (no date) (unknown) (unknown) tomorrow. They were sent to the pharmacy of her choice. She was given strict (units unknown) (unknown) (unknown) (no date) (unknown) (unknown) torsemide 20 mg Tablet (units unknown) (unknown) (unknown) (no date) (unknown) (unknown) torsemide 20 mg tablet 20 mg PO DAILY 07/24/22 07/24/22 (units unknown) (unknown) (unknown) (no date) (unknown) (unknown) trimethoprim [From Bactrim] Allergy Intermediate Rash Verified 02/09/23 18:21 (units unknown) (unknown) (unknown) (no date) (unknown) (unknown) unremarkable.? (units unknown) (unknown) (unknown) (no date) (unknown) (unknown) vitamin E 268 mg (400 unit) capsule 400 unit PO DAILY 09/10/18 07/24/22 (units unknown) (unknown) (unknown) (no date) (unknown) (unknown) vitamin E 400 unit Capsule (units unknown) (unknown) (unknown) (no date) (unknown) (unknown) was described as a COPD exacerbation according to the note. Was sent home with (units unknown) (unknown) (unknown) (no date) (unknown) (unknown) whether not she got them from here in the emergency department or from her (units unknown) (unknown) (unknown) (no date) (unknown) (unknown) x1 day, then 3 tablets p.o. x1 day, then 2 tablets p.o. x1 day, then 1 tablet (units unknown) (unknown) Social History date description facility 2023-02-09 00:00 Ex-smoker (finding) [facility] 2023-02-16 00:00 Ex-smoker (finding) [facility] Vital Signs date measurement value units 2023-02-09 00:00 BMI 25.6 kg/m2 2023-02-09 00:00 [...]
--- NOTE | 2023-04-20 23:36 | ED Physician Documentation ---
PD HPI DYSPNEA - Stated complaint Stated Complaint: SOB - Chief complaint Chief Complaint: Resp - History obtained from History obtained from: Patient - Additional information Additional information: BIBA. Patient c/o productive cough with midline chest pain that is only with coughing. Has been coughing episodically over past week and a half, recently seen at [facility] and diagnosed with pneumonia, rx amoxicillin but she says she did not complete full course. Denies fever. Had emesis x 1 in ambulance but otherwise has not had nausea Review of Systems Constitutional: denies: Fever, Chills, Sweats Cardiac: reports: Chest pain / pressure. denies: Palpitations Respiratory: reports: Cough. denies: Dyspnea, Hemoptysis, Wheezing GI: reports: Vomiting (one episode en route in ambulance). 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 Cardiovascular: CABG HEENT: Tonsil/Adenoidectomy - Present Medications Home Medications: Ambulatory Orders Medication Instructions Recorded Confirmed Aspirin 162 mg PO DAILY 07/12/17 09/11/17 Levothyroxine Sodium [Synthroid] 50 mcg PO DAILY 07/12/17 09/11/17 lisinopriL [Lisinopril] 40 mg PO DAILY 07/12/17 09/11/17 Albuterol 2.5 mg INH BID PRN 09/11/17 09/11/17 Amlodipine Besylate 10 mg PO DAILY 09/11/17 09/11/17 [place]-3 Acid Ethyl Esters [Lovaza] 1 gm PO DAILY 09/11/17 09/11/17 Triamterene/Hydrochlorothiazid 1 tab PO DAILY 09/11/17 09/11/17 [Triamterene-Hctz 37.5-25 mg Tb] Azithromycin [Zithromax] 1 gm PO UD #1 packet 09/13/17 methylPREDNISolone [Medrol] 4 mg PO UD #1 tab.ds.pk 09/13/17 Doxycycline Monohydrate 100 mg PO BID #14 tablet 07/03/20 predniSONE [Deltasone] 10 mg PO DAILY #14 tablet 07/03/20 Amoxicillin 2 tab PO TID #30 cap 02/19/23 HYDROcod/ACETAM 5/325 [[place] 5/325] 1 - 2 tab PO Q6H PRN #15 tablet 02/19/23 Azithromycin [Zithromax] 250 mg PO DAILY #4 tablet 04/21/23 Codeine Phosphate/Guaifenesin 2.5 ml PO Q4HR PRN #30 ml 04/21/23 [Codeine-Guaifen 10-100 mg/5 ml] - Allergies Allergies/Adverse Reactions: Allergies Allergy/AdvReac Type Severity Reaction Status Date / Time Unable to Assess Allergy Verified 04/20/23 23:07 - Social History Does the pt smoke?: No Smoking Status: Never smoker Does the pt drink ETOH?: No Does the pt have substance abuse?: No - Immunizations Immunizations are current?: Yes - POLST Patient has POLST: No PD ED PE NORMAL - Vitals Vital signs reviewed: Yes - General General: Alert and oriented X 3, No acute distress, Well developed/nourished - HEENT HEENT: Moist mucous membranes - Neck Neck: Supple, no meningeal sign - Cardiac Cardiac: RRR (occasional extra beats that correlate with PVCs on monitor) - Respiratory Respiratory: No respiratory distress, Other (scattered rhonchi bilaterally) - Abdomen Abdomen: Soft, Non tender Results - Vitals Vitals: Oxygen O2 Source Nasal cannula Oxygen Flow Rate 2 - EKG (time done) No standard instances EKG releavant findings:: EKG personally interpreted by author of this note. Relevant findings are: Rate: Rate (enter#) (65) Rhythm: NSR [place]: Normal Intervals: RBBB QRS: LVH Ischemia: Normal ST segments Other comments: Other comments (pvcs) - Labs Labs: Laboratory Tests 04/21/23 04/21/23 04/21/23 00:22 00:22 00:45 WBC 5.9 RBC 4.13 L Hgb 11.7 L Hct 37.4 MCV 90.6 MCH 28.3 MCHC 31.3 L RDW 14.0 Plt Count 184 MPV 10.6 Neut # (Auto) 3.8 Lymph # (Auto) 1.2 L [place] # (Auto) 0.6 Eos # (Auto) 0.4 Baso # (Auto) 0.1 Absolute Nucleated RBC 0.00 Nucleated RBC % 0.0 Sodium 141 Potassium 4.2 Chloride 103 Carbon Dioxide 32 Anion Gap 6.0 BUN 15 Creatinine 1.1 H Estimated GFR (MDRD) 47 L Glucose 152 H Calcium 9.8 Total Bilirubin 0.6 AST 21 ALT 16 Alkaline Phosphatase 71 Total Protein 6.7 Albumin 3.6 Globulin 3.1 Albumin/Globulin Ratio 1.2 Lipase 39 Nasal Adenovirus (PCR) NOT DETECTED Nasal B. parapertussis DNA (PCR) NOT DETECTED Nasal Coronavir 229E PCR NOT DETECTED Nasal Coronavir HKU1 PCR NOT DETECTED Nasal Coronavir NL63 PCR NOT DETECTED Nasal Coronavir OC43 PCR NOT DETECTED Nasal Enterovir/Rhinovir PCR NOT DETECTED Nasal Influenza B PCR NOT DETECTED Nasal Influenza A PCR NOT DETECTED Nasal Parainfluen 1 PCR NOT DETECTED Nasal Parainfluen 2 PCR NOT DETECTED Nasal Parainfluen 3 PCR NOT DETECTED Nasal Parainfluen 4 PCR NOT DETECTED Nasal RSV (PCR) NOT DETECTED Nasal B.pertussis DNA PCR NOT DETECTED Nasal C.pneumoniae (PCR) NOT DETECTED [place] Human Metapneumo PCR NOT DETECTED Nasal M.pneumoniae (PCR) NOT DETECTED Nasal SARS-CoV-2 (PCR) NOT DETECTED - Rads (name of study) chest xray Relevant Findings:: Prelim report reviewed, See rad report PD Medical Decision Making - ED course Complexity details: reviewed results, re-evaluated patient, considered differential, d/w patient ED course: NAD during ED stay, negative respiratory PCR panel, mild bilateral perihilar streaking on cxr. She does have a frequent , productive cough in ED. Given her advanced age, abnormal breath sounds, recent but incomplete course of antibiotics, I am prescribing a 5-day course of zithromax for clinical p neumonia. Also given low-dose robitussin AC for both cough suppression and the chest pain that is clearly associated with coughing. I am prescribing a short course of short-acting opioid pain medication for this patient. 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 I have discussed that the opioids are for short term therapy only, and will not be refilled from the ED. Departure - Departure Disposition: 01 Home, Self Care Clinical Impression: Bronchitis Condition: Good Instructions: ED Upper Resp Infec Abx Tx Follow-Up: Katy Salazar ARNP [Primary Care Provider] - Within 1 week Prescriptions: Codeine Phosphate/Guaifenesin [Codeine-Guaifen 10-100 mg/5 ml] 2.5 ml PO Q4HR PRN #30 ml PRN Reason: Cough Azithromycin [Zithromax] 250 mg PO DAILY #4 tablet Comments: There were no concerning or diagnostic findings on tonight's tests. The nasal swab was tested for several different viruses including COVID and influenza, and the result was negative for these viruses. The chest x-ray shows a very mild haziness in both lungs that could represent a mild infection such as bronchitis or pneumonia, and thus I am prescribing a different antibiotic than the amoxicillin that you had been taking. You are given the first dose antibiotic (Zithromax, azithromycin) in the emergency department, and I am electronically submitting a prescription for another 4 days this antibiotic to the [facility] pharmacy in [place] along with a prescription for a codeine-containing cough syrup. You can use the codeine cough syrup to not only control the cough but also if you are experiencing chest pain associated with coughing. Because it contains codeine, realize you might have some drowsiness as a result of this medication. I am prescribing a short course of narcotic pain medication for you. These are potentially dangerous and addictive medications that should be used carefully. These medications may constipate you. Take an [id number] stool softener (docusate) twice daily with plenty of water while taking these medications. If you go 24 hours without a bowel movement, take [id number] miralax, per package instructions. Do not drink or drive while taking these medications. If you received narcotic or sedating medications while in the emergency department, do not drive for 24 hours. Store this medication in a safe, secure place and out of reach of children. It is a violation of federal law to give or sell this medication to another person or to use in a manner other than prescribed. The ED will not refill narcotic prescriptions, including prescriptions lost or stolen. To dispose of unwanted medications: 1. [facility] at [address] [place] in [place] has a medication drop box. They accept prescription medications (in pill form) Sunday through Sunday 9:00 a.m. to 5:00 p.m. 2. [facility] accepts prescription medications (in pill form only) for disposal year round. Call for more information. 3. Contact the [facility] for the next [facility] sponsored prescription drug collection event. , [phone], or [phone]; Discharge Date/Time: 04/21/23 06:22
[2023-04-21 00:33] LABS: BASOPHILS # (AUTO) 0.1 10^3/uL (0.0-0.1); BASOPHILS % (AUTO) 0.8 %; EOSINOPHILS # (AUTO) 0.4 10^3/uL (0.0-0.7); EOSINOPHILS % (AUTO) 6.1 %; HCT - HEMATOCRIT 37.4 % (37.0-47.0); HGB - HEMOGLOBIN 11.7 g/dL (12.0-16.0); LYMPHOCYTES # (AUTO) 1.2 10^3/uL (1.5-3.5); LYMPHOCYTES % (AUTO) 19.7 %; MEAN CORPUSCULAR HEMOGLOBIN 28.3 pg (27.0-31.0); MEAN CORPUSCULAR HGB CONC 31.3 g/dL (32.0-36.0); MEAN CORPUSCULAR VOLUME 90.6 fL (81.0-99.0); MEAN PLATELET VOLUME 10.6 fL (7.9-10.8); MONOCYTES # (AUTO) 0.6 10^3/uL (0.0-1.0); MONOCYTES % (AUTO) 9.4 %; NEUTROPHILS # (AUTO) 3.8 10^3/uL (1.5-6.6); NEUTROPHILS % (AUTO) 63.8 %; PLT - PLATELET COUNT 184 10^3/uL (130-450); RED BLOOD COUNT 4.13 10^6/uL (4.20-5.40); WHITE BLOOD COUNT 5.9 x10^3/uL (4.8-10.8)
[2023-04-21 00:42] LABS: ALBUMIN 3.6 g/dL (3.2-5.5); ALBUMIN/GLOBULIN RATIO 1.2 (1.0-2.2); BILIRUBIN,TOTAL 0.6 mg/dL (0.2-1.0); CALCIUM 9.8 mg/dL (8.5-10.3); CREATININE 1.1 mg/dL (0.4-1.0); POTASSIUM 4.2 mmol/L (3.5-5.0); TOTAL PROTEIN 6.7 g/dL (6.7-8.2)
--- NOTE | 2023-04-21 01:39 | XRAY Report ---
PROCEDURE: Chest 2 View X-Ray INDICATIONS: cough, dyspnea TECHNIQUE: 2 views of the chest were acquired. COMPARISON: 03/20/2023, 02/19/2023 FINDINGS: Surgical changes and devices: Sternotomy changes are noted. Cholecystectomy clips are seen. Appare nt epicardial leads are seen. Lungs and pleura: No pleural effusions or pneumothorax. Mild generalized interstitial prominence can be seen, which is similar to the prior. Mediastinum: The aorta is prominent and tortuous. The cardiac contours are mildly enlarged. Bones and chest wall: No suspicious bony lesions. Age-appropriate degenerative changes are seen. Overlying soft tissues appear unremarkable. IMPRESSION: Mild generalized interstitial prominence can be seen, which may be related to mild pulmonary edema or baseline parenchymal coarsening. Mild cardiomegaly. Prominent, tortuous aorta. Postoperative and degenerative changes are seen. Reviewed by: Darian Tamez MD on 04/21/2023 12:37 AM VIJAYA Approved by: Darian Tamez MD on 04/21/2023 12:37 AM VIJAYA Station ID: [id number]
[2023-04-21 01:43] LABS: CORONAVIRUS 229E-RESP PCR NOT DETECTED; CORONAVIRUS HKU1-RESP PCR NOT DETECTED; CORONAVIRUS NL63-RESP PCR NOT DETECTED; CORONAVIRUS OC43-RESP PCR NOT DETECTED; HUMAN METAPNEUMOVIRUS NOT DETECTED; INFLUENZA A- RESP PCR PANEL NOT DETECTED; INFLUENZA B - RESP PCR PANEL NOT DETECTED; PARAINFLUENZA VIRUS 1 NOT DETECTED; PARAINFLUENZA VIRUS 2 NOT DETECTED; PARAINFLUENZA VIRUS 3 NOT DETECTED; PARAINFLUENZA VIRUS 4 NOT DETECTED; RHINOVIRUS/ENTEROVIRUS NOT DETECTED; SARS-CoV-2 -RESP PCR PANEL NOT DETECTED
[2023-04-21 01:44] LABS: B. PARAPERTUSSIS- RESP PCR PAN NOT DETECTED; B. PERTUSSIS- RESP PCR PANEL NOT DETECTED; C. PNEUMONIAE- RESP PCR PANEL NOT DETECTED; M. PNEUMONIAE- RESP PCR PANEL NOT DETECTED; RSV- RESP PCR PANEL NOT DETECTED
[2023-04-21] MEDS ORDERED: AZITHROMYCIN 250 MG TABLET PO STA (04:32)
[2023-04-21] MEDS ORDERED: guaiFENesin/CODEINE 5 ML UDC PO STA (04:32)
[2023-04-21 06:24] VITALS: BP 165/63
== END 2023-04-21 06:22 | disposition home or self-care (01) ==
LOC: ED 22:53
DX: J40 Bronchitis, not specified as acute or chronic (principal); I10 Essential (primary) hypertension; Z95.1 Presence of aortocoronary bypass graft; Z20.822 Contact with and (suspected) exposure to COVID-19
CPT/HCPCS: 36415; 71046; 80053; 83690; 85025; 87633; 93005; 99284; A9270

== ENCOUNTER 2023-05-01 15:27 | Outpatient (CLI) | payer MEDICARE | END 2023-05-01 23:59 | disposition EMS.NT | LOC: EMS 15:27 | DX: Z03.89 Encounter for observation for other suspected diseases and conditions ruled out (principal) ==

== ENCOUNTER 2023-06-01 10:49 | Outpatient (CLI) | payer MEDICARE | END 2023-06-01 10:50 | disposition short-term general hospital (02) | LOC: EMS 10:49 | DX: R07.89 Other chest pain (principal) | CPT/HCPCS: A0425; A0427; A0888 ==

== ENCOUNTER 2023-08-09 07:35 | Outpatient (CLI) | payer MEDICARE | END 2023-08-09 07:36 | disposition short-term general hospital (02) | LOC: EMS 07:35 | DX: R07.89 Other chest pain (principal); I48.91 Unspecified atrial fibrillation; I45.10 Unspecified right bundle-branch block | CPT/HCPCS: A0425; A0427; A0888 ==

== ENCOUNTER 2023-08-16 10:54 | Outpatient (CLI) | payer MEDICARE | END 2023-08-16 10:55 | disposition short-term general hospital (02) | LOC: EMS 10:54 | DX: R53.1 Weakness (principal); R53.83 Other fatigue; R07.89 Other chest pain; R35.0 Frequency of micturition | CPT/HCPCS: A0425; A0429 ==

== ENCOUNTER 2023-09-27 03:43 | Outpatient (CLI) | payer MEDICARE | END 2023-09-27 03:44 | disposition EMS.NT | LOC: EMS 03:43 | DX: R04.0 Epistaxis (principal); Z79.02 Long term (current) use of antithrombotics/antiplatelets; Z79.82 Long term (current) use of aspirin ==

== ENCOUNTER 2023-09-27 05:05 | Outpatient (CLI) | payer MEDICARE | END 2023-09-27 05:06 | disposition critical access hospital (66) | LOC: EMS 05:05 | DX: R04.0 Epistaxis (principal); Z79.02 Long term (current) use of antithrombotics/antiplatelets | CPT/HCPCS: A0425; A0429 ==

== ENCOUNTER 2023-09-27 05:23 | Emergency (ER) | payer MEDICARE ==
[2023-09-27] MEDS ORDERED: BACITRACIN ZINC OINT 1 PACKET TOP STA (05:32)
--- NOTE | 2023-09-27 06:16 | ED Physician Documentation ---
PD HPI HEENT - Stated complaint Stated Complaint: NOSEBLEED - Chief complaint Chief Complaint: Heent - History obtained from History obtained from: Patient, EMS - Additional information Additional information: 87yF on hospice p/w BL persistent epistaxis after taking her plavix despite being advised to stop it. 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 Cardiovascular: CABG HEENT: Tonsil/Adenoidectomy - Present Medications Home Medications: Ambulatory Orders Medication Instructions Recorded Confirmed Aspirin 162 mg PO DAILY 07/12/17 09/11/17 Levothyroxine Sodium [Synthroid] 50 mcg PO DAILY 07/12/17 09/11/17 lisinopriL [Lisinopril] 40 mg PO DAILY 07/12/17 09/11/17 Albuterol 2.5 mg INH BID PRN 09/11/17 09/11/17 Amlodipine Besylate 10 mg PO DAILY 09/11/17 09/11/17 [place]-3 Acid Ethyl Esters [Lovaza] 1 gm PO DAILY 09/11/17 09/11/17 Triamterene/Hydrochlorothiazid 1 tab PO DAILY 09/11/17 09/11/17 [Triamterene-Hctz 37.5-25 mg Tb] Azithromycin [Zithromax] 1 gm PO UD #1 packet 09/13/17 methylPREDNISolone [Medrol] 4 mg PO UD #1 tab.ds.pk 09/13/17 Doxycycline Monohydrate 100 mg PO BID #14 tablet 07/03/20 predniSONE [Deltasone] 10 mg PO DAILY #14 tablet 07/03/20 Amoxicillin 2 tab PO TID #30 cap 02/19/23 HYDROcod/ACETAM 5/325 [[place] 5/325] 1 - 2 tab PO Q6H PRN #15 tablet 02/19/23 Azithromycin [Zithromax] 250 mg PO DAILY #4 tablet 04/21/23 Codeine Phosphate/Guaifenesin 2.5 ml PO Q4HR PRN #30 ml 04/21/23 [Codeine-Guaifen 10-100 mg/5 ml] - Allergies Allergies/Adverse Reactions: Allergies Allergy/AdvReac Type Severity Reaction Status Date / Time acarbose Allergy Unknown Verified 09/27/23 06:02 budesonide Allergy Unknown Verified 09/27/23 06:02 fenofibrate Allergy Unknown Verified 09/27/23 06:02 nitrofurantoin Allergy Unknown Verified 09/27/23 06:02 trimethoprim Allergy Unknown Verified 09/27/23 06:00 - Social History Does the pt smoke?: No Smoking Status: Former smoker Does the pt drink ETOH?: No Does the pt have substance abuse?: No - Immunizations Immunizations are current?: Yes - POLST Patient has POLST: No PD ED PE NORMAL - Vitals Vital signs reviewed: Yes - General General: Alert and oriented X 3, No acute distress, Well developed/nourished - HEENT HEENT: Atraumatic, PERRL, EOMI, Other (BL epistaxis without clear source of bleeding) - Neck Neck: Supple, no meningeal sign Results - Vitals Vitals: Vital Signs - 24 hr 09/27/23 09/27/23 05:32 05:38 Temperature 36.1 C L Heart Rate 72 78 Respiratory 15 16 Rate Blood Pressure 144/101 H O2 Saturation 96 95 Oxygen O2 Source Room air Procedures - Epistaxis - Minor Site: Both, Cannot determine Preparation: Clots removed, Clamp / pressure applied Treatment: Ant post rhinorocket Other: Observed - no bleeding, Pt tolerated well, O2 sat WNL, Referred to ENT, Other (advised removal within 24 hours) PD Medical Decision Making - ED course ED course: 87-year-old woman presented to the ED with persistent bilateral epistaxis on Plavix. Nasal clamps were applied and bilateral AP Rhino Rocket's inserted with successful cessation of bleeding. Discussed with patient's hospice nurse to have pcp gently remove the Rhino Rocket's in 24 hours and have her follow-up with ENT as needed. plan to hold plavix. Return precautions given. Departure - Departure Disposition: 01 Home, Self Care Clinical Impression: Epistaxis Condition: Good Instructions: ED Nosebleed Follow-Up: Vidal Ramos DO [Physician No Access] - Comments: You were seen in the emergency department for nosebleed and had rhinorockets inserted in both nostrils. Please have your primary care provider deflate them and remove within 24 hours and follow up with ENT as needed. Do not take plavix. Please follow-up with your primary care provider and return to the emergency department if you have any new or worsening symptoms or other concerns.
[2023-09-27] MEDS ORDERED: TRANEXAMIC ACID 1,000 MG/10 ML VIAL NAS STA (06:41)
[2023-09-27] MEDS ORDERED: MORPHINE 2 MG/ML CARPUJECT IM STA (06:41)
[2023-09-27] MEDS ORDERED: OXYMETAZOLINE HCL 100 SPRAYS BOTTLE NAS STA (06:41)
[2023-09-27 07:52] VITALS: BP 175/88; O2SAT 94
--- NOTE | 2023-09-27 08:47 | ED Physician Documentation ---
ED Addendum - Addendum Addendum: 09/27/23 08:47 Patient was quite miserable with the Rhino Rocket's in. Did not look like there was active bleeding so I did remove the Rhino Rocket's and we will observe for a bit.
== END 2023-09-27 09:09 | disposition home or self-care (01) ==
LOC: EDUNIT# → ED 05:23
DX: R04.0 Epistaxis (principal); D68.32 Hemorrhagic disorder due to extrinsic circulating anticoagulants; T45.525A Adverse effect of antithrombotic drugs, initial encounter; Z87.891 Personal history of nicotine dependence
CPT/HCPCS: 30901; 96372; 99283; A9270

== ENCOUNTER 2023-10-02 09:45 | Outpatient (CLI) | payer MEDICARE ==
[2023-10-02 18:19] LABS: ALBUMIN/GLOBULIN RATIO 1.5 (1.0-2.2); BILIRUBIN,TOTAL 1.1 mg/dL (0.2-1.0); CALCIUM 10.3 mg/dL (8.5-10.3); POTASSIUM 3.9 mmol/L (3.5-4.5); TOTAL PROTEIN 6.6 g/dL (6.4-8.9)
[2023-10-02 18:22] LABS: BASOPHILS # (AUTO) 0.1 10^3/uL (0.0-0.1); BASOPHILS % (AUTO) 0.8 %; EOSINOPHILS # (AUTO) 0.2 10^3/uL (0.0-0.7); EOSINOPHILS % (AUTO) 3.7 %; HCT - HEMATOCRIT 35.9 % (37.0-47.0); LYMPHOCYTES # (AUTO) 0.5 10^3/uL (1.5-3.5); LYMPHOCYTES % (AUTO) 8.2 %; MEAN CORPUSCULAR HEMOGLOBIN 28.1 pg (27.0-31.0); MEAN CORPUSCULAR HGB CONC 30.6 g/dL (32.0-36.0); MEAN CORPUSCULAR VOLUME 91.8 fL (81.0-99.0); MONOCYTES # (AUTO) 0.6 10^3/uL (0.0-1.0); MONOCYTES % (AUTO) 9.5 %; NEUTROPHILS # (AUTO) 4.8 10^3/uL (1.5-6.6); NEUTROPHILS % (AUTO) 77.6 %; PLT - PLATELET COUNT 238 10^3/uL (130-450); RED BLOOD COUNT 3.91 10^6/uL (4.20-5.40); RED CELL DISTRIBUTION WIDTH 15.7 % (12.0-15.0); WHITE BLOOD COUNT 6.2 x10^3/uL (4.8-10.8)
--- NOTE | 2023-10-02 20:23 | XRAY Report ---
PROCEDURE: Chest 2 View X-Ray INDICATIONS: COUGH TECHNIQUE: 2 views of the chest were obtained. COMPARISON: 05/21/2023 FINDINGS: Worsening right upper lobe pulmonary infiltrate with underlying chronic interstitial changes noted. Heart size is enlarged. Generalized decreased osseous mineralization present. Moderate vascular conge stion noted to. Left lateral lingular infiltrate noted as well. Midline sternal wires as well as temporary pacing wires again noted. IMPRESSION: Chronic bilateral pulmonary infiltrates slightly worse than prior exam Cardiomegaly Reviewed by: Shan Cummings MD on 10/02/2023 7:22 PM AKST Approved by: Shan Cummings MD on 10/02/2023 7:22 PM AKST Station ID: [id number]
== END 2023-10-02 10:00 | disposition home or self-care (01) ==
LOC: DI.N 09:45
PROVIDERS: ATTEND Family Medicine
DX: R05.9 Cough, unspecified (principal); R91.8 Other nonspecific abnormal finding of lung field; I51.7 Cardiomegaly; J18.9 Pneumonia, unspecified organism
CPT/HCPCS: 36415; 80053; 85025

== ENCOUNTER 2023-11-01 10:56 | Outpatient (CLI) | payer MEDICARE | END 2023-11-01 23:59 | disposition short-term general hospital (02) | LOC: EMS 10:56 | DX: R07.89 Other chest pain (principal); R06.02 Shortness of breath | CPT/HCPCS: A0425; A0429; A0888 ==

== ENCOUNTER 2023-11-05 11:15 | Outpatient (CLI) | payer MEDICARE | END 2023-11-05 11:30 | disposition home or self-care (01) | LOC: LAB.N 11:15 | PROVIDERS: ATTEND Nurse Practitioner | DX: N39.0 Urinary tract infection, site not specified (principal); R30.0 Dysuria | CPT/HCPCS: 87086 ==

== ENCOUNTER 2023-12-24 01:08 | Outpatient (CLI) | payer MEDICARE | END 2023-12-24 23:59 | disposition critical access hospital (66) | LOC: EMS 01:08 | DX: R04.0 Epistaxis (principal) | CPT/HCPCS: A0425; A0429 ==

== ENCOUNTER 2023-12-24 01:33 | Emergency (ER) | payer MEDICARE ==
[2023-12-24] MEDS: OXYMETAZOLINE HCL 100 SPRAYS BOTTLE NAS STA (01:57)
--- NOTE | 2023-12-24 02:29 | ED Physician Documentation ---
PD HPI HEENT - Stated complaint Stated Complaint: NOSE BLEED - Chief complaint Chief Complaint: Heent - History obtained from History obtained from: Patient - History of Present Illness Timing - onset: Today Timing - duration: Minutes Timing - details: Abrupt onset, Still present Location: Nose Improves: Other (clamp) Worsens: Everything Associated symptoms: No: Fever, Congestion, Rhinorrhea, Trismus, Cough Similar symptoms before: Has not had sx before Recently seen: Not recently seen - Additional information Additional information: 88-year-old Roselyn Mejia has a history of coronary artery disease and COPD she is on oxygen at night. She has developed epistaxis again. She has had this issue previously and has had to have Rhino Rocket's placed. Tonight she presents by ambulance with acute epistaxis and at the time of presentation it appears controlled with a clamp. 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 Cardiovascular: CABG HEENT: Tonsil/Adenoidectomy - Present Medications Home Medications: Ambulatory Orders Medication Instructions Recorded Confirmed Aspirin 162 mg PO DAILY 07/12/17 09/11/17 Levothyroxine Sodium [Synthroid] 50 mcg PO DAILY 07/12/17 09/11/17 lisinopriL [Lisinopril] 40 mg PO DAILY 07/12/17 09/11/17 Albuterol 2.5 mg INH BID PRN 09/11/17 09/11/17 Amlodipine Besylate 10 mg PO DAILY 09/11/17 09/11/17 [place]-3 Acid Ethyl Esters [Lovaza] 1 gm PO DAILY 09/11/17 09/11/17 Triamterene/Hydrochlorothiazid 1 tab PO DAILY 09/11/17 09/11/17 [Triamterene-Hctz 37.5-25 mg Tb] Azithromycin [Zithromax] 1 gm PO UD #1 packet 09/13/17 methylPREDNISolone [Medrol] 4 mg PO UD #1 tab.ds.pk 09/13/17 Doxycycline Monohydrate 100 mg PO BID #14 tablet 07/03/20 predniSONE [Deltasone] 10 mg PO DAILY #14 tablet 07/03/20 Amoxicillin 2 tab PO TID #30 cap 02/19/23 HYDROcod/ACETAM 5/325 [[place] 5/325] 1 - 2 tab PO Q6H PRN #15 tablet 02/19/23 Azithromycin [Zithromax] 250 mg PO DAILY #4 tablet 04/21/23 Codeine Phosphate/Guaifenesin 2.5 ml PO Q4HR PRN #30 ml 04/21/23 [Codeine-Guaifen 10-100 mg/5 ml] - Allergies Allergies/Adverse Reactions: Allergies Allergy/AdvReac Type Severity Reaction Status Date / Time acarbose Allergy Unknown Verified 12/24/23 01:41 budesonide Allergy Unknown Verified 12/24/23 01:41 fenofibrate Allergy Unknown Verified 12/24/23 01:41 nitrofurantoin Allergy Unknown Verified 12/24/23 01:41 trimethoprim Allergy Unknown Verified 12/24/23 01:41 - Social History Does the pt smoke?: No Smoking Status: Never smoker Does the pt drink ETOH?: No Does the pt have substance abuse?: No - Immunizations Immunizations are current?: Yes - POLST Patient has POLST: No PD ED PE NORMAL - Vitals Vital signs reviewed: Yes (Hypertensive mild) - General General: Alert and oriented X 3, No acute distress, Well developed/nourished - HEENT HEENT: Atraumatic, PERRL, EOMI, Other (There is blood from the left nares and this appears to be coming from the septum.With a clamp in place there is no current post nasal hemorrhage.) - Neck Neck: Supple, no meningeal sign, No bony TTP - Respiratory Respiratory: No respiratory distress - Derm Derm: Normal color, Warm and dry, No rash - Extremities Extremities: No deformity, No edema - Neuro Neuro: No motor deficit, No sensory deficit Eye Opening: Spontaneous Motor: Obeys Commands Verbal: Oriented GCS Score: 15 - Psych Psych: Normal mood, Normal affect Results - Vitals Vitals: Vital Signs - 24 hr 12/24/23 12/24/23 12/24/23 01:30 01:41 03:10 Temperature 36.8 C Heart Rate 59 L 58 L 56 L Respiratory 18 99 H 16 Rate Blood Pressure 168/82 H 168/82 H 136/61 H O2 Saturation 92 2 L 99 If not protocol 2 : Oxygen Flow, liters/minute Oxygen O2 Source Nasal cannula Oxygen Flow Rate 2 Procedures - Epistaxis - Minor Site: Left, Anterior Preparation: Clots removed, Afrin, Clamp / pressure applied Treatment: Anterior rhinorocket Other: Observed - no bleeding, Pt tolerated well, O2 sat WNL PD Medical Decision Making - ED course Complexity details: reviewed results, re-evaluated patient, considered differential, d/w patient ED course: 88-year-old Roselyn Mejia presents with a bleed from the left nares. Although it appeared she had control with a clamp alone when the clamp was removed she had bleeding resume. Afrin was instilled and the patient had a Rhino Rocket placed anteriorly and inflated. She appeared to tolerate this well. Departure - Departure Disposition: 01 Home, Self Care Clinical Impression: Epistaxis Condition: Stable Instructions: ED Nasal Packing Anterior Removable Follow-Up: [facility] [place] [Provider Group] Comments: Roselyn, today it looks like you have another nosebleed and we have placed an a nterior Rhino Rocket. This will need to be removed within 24 hours. You can return to see us here in the emergency department or you can go into see your primary care doctor at primary care in [place].
[2023-12-24 03:16] VITALS: BP 136/61; O2SAT 99
== END 2023-12-24 03:54 | disposition home or self-care (01) ==
LOC: EDUNIT# → ED 01:33
DX: R04.0 Epistaxis (principal); I11.0 Hypertensive heart disease with heart failure; I50.9 Heart failure, unspecified; I25.810 Atherosclerosis of coronary artery bypass graft(s) without angina pectoris; J44.9 Chronic obstructive pulmonary disease, unspecified; E03.9 Hypothyroidism, unspecified; Z79.899 Other long term (current) drug therapy; Z79.82 Long term (current) use of aspirin; Z95.1 Presence of aortocoronary bypass graft
CPT/HCPCS: 30901; 99283; A9270

== ENCOUNTER 2024-01-30 08:45 | Outpatient (CLI) | payer MEDICARE ==
--- NOTE | 2024-01-30 15:00 | XRAY Report ---
PROCEDURE: Chest 2V INDICATIONS: EXPIRATORY WHEEZING TECHNIQUE: 2 views of the chest were acquired. COMPARISON: Chest radiographs 10/02/2023 FINDINGS: Surgical changes and devices: Sternotomy wires again noted. Surgical clips are seen in the upper abd omen. Lungs and pleura: No pleural effusion or pneumothorax. Diffuse bilateral interstitial opacities are again noted. No focal consolidation. Mediastinum: Cardiac silhouette is mildly enlarged. Aorta appears tortuous with atherosclerotic calc ifications. Bones and chest wall: No suspicious bony lesions. Overlying soft tissues appear unremarkable. IMPRESSION: Bilateral interstitial opacities which may be related to chronic interstitial lung disease. Mild supe rimposed interstitial edema or a viral or atypical pneumonia are not excluded. Stable mild cardiomega ly. Reviewed by: Jaswinder Buck MD on 01/30/2024 2:59 PM PDT Approved by: Jaswinder Buck MD on 01/30/2024 2:59 PM PDT Station ID: [id number]
== END 2024-01-30 09:00 | disposition home or self-care (01) ==
LOC: DI.N 08:45
PROVIDERS: ATTEND Registered Nurse
DX: R91.8 Other nonspecific abnormal finding of lung field (principal); I51.7 Cardiomegaly

== ENCOUNTER 2024-03-07 10:44 | Outpatient (CLI) | payer MEDICARE | END 2024-03-07 23:59 | disposition short-term general hospital (02) | LOC: EMS 10:44 | DX: R09.89 Other specified symptoms and signs involving the circulatory and respiratory systems (principal); R14.2 Eructation; R53.81 Other malaise | CPT/HCPCS: A0425; A0429; A0888 ==

== ENCOUNTER 2024-03-23 07:12 | Outpatient (CLI) | payer MEDICARE | END 2024-03-23 23:59 | disposition short-term general hospital (02) | LOC: EMS 07:12 | DX: R07.89 Other chest pain (principal); Z99.81 Dependence on supplemental oxygen | CPT/HCPCS: A0425; A0429 ==

== ENCOUNTER 2024-05-04 23:29 | Outpatient (CLI) | payer MEDICARE | END 2024-05-04 23:30 | disposition critical access hospital (66) | LOC: EMS 23:29 | DX: R07.89 Other chest pain (principal); Z99.81 Dependence on supplemental oxygen | CPT/HCPCS: A0425; A0429 ==

== ENCOUNTER 2024-05-04 23:53 | Emergency (ER) | payer MEDICARE ==
[2024-05-05 00:20] LABS: BASOPHILS # (AUTO) 0.1 10^3/uL (0.0-0.1); BASOPHILS % (AUTO) 0.8 %; EOSINOPHILS # (AUTO) 0.5 10^3/uL (0.0-0.7); EOSINOPHILS % (AUTO) 7.6 %; HCT - HEMATOCRIT 32.8 % (37.0-47.0); HGB - HEMOGLOBIN 10.3 g/dL (12.0-16.0); LYMPHOCYTES # (AUTO) 1.2 10^3/uL (1.5-3.5); LYMPHOCYTES % (AUTO) 18.8 %; MEAN CORPUSCULAR HEMOGLOBIN 27.6 pg (27.0-31.0); MEAN CORPUSCULAR HGB CONC 31.4 g/dL (32.0-36.0); MEAN CORPUSCULAR VOLUME 87.9 fL (81.0-99.0); MEAN PLATELET VOLUME 10.1 fL (7.9-10.8); MONOCYTES # (AUTO) 0.5 10^3/uL (0.0-1.0); MONOCYTES % (AUTO) 7.9 %; NEUTROPHILS # (AUTO) 4.1 10^3/uL (1.5-6.6); NEUTROPHILS % (AUTO) 64.7 %; PLT - PLATELET COUNT 192 10^3/uL (130-450); RED BLOOD COUNT 3.73 10^6/uL (4.20-5.40); RED CELL DISTRIBUTION WIDTH 14.4 % (12.0-15.0); WHITE BLOOD COUNT 6.3 x10^3/uL (4.8-10.8)
[2024-05-05 00:36] LABS: ALBUMIN 3.5 g/dL (3.2-5.5); ALBUMIN/GLOBULIN RATIO 1.6 (1.0-2.2); BILIRUBIN,TOTAL 0.4 mg/dL (0.2-1.0); CREATININE 1.1 mg/dL (0.6-1.3); POTASSIUM 3.9 mmol/L (3.5-4.5); TOTAL PROTEIN 5.7 g/dL (6.4-8.9)
--- NOTE | 2024-05-05 00:38 | XRAY Report ---
PROCEDURE: Chest 1V INDICATIONS: chest pain TECHNIQUE: One view of the chest was acquired. COMPARISON: CT chest 01/30/2024. FINDINGS: Surgical changes and devices: Median sternotomy. Lungs and pleura: No pleural effusions or pneumothorax. Compared to prior radiograph 01/30/2024, no si gnificant change in chronic interstitial opacities. No focal dense airspace consolidation.. Mediastinum: Mediastinal contours appear normal. Heart size is normal. Regard is calcified indica ting atherosclerosis. Bones and chest wall: No suspicious bony lesions. Overlying soft tissues appear unremarkable. IMPRESSION: Compared to prior radiograph 01/30/2024, no significant change in interstitial opacities likely related to chronic interstitial disease. No focal dense airspace consolidation. Reviewed by: Jenna Rodney MD, PhD on 05/05/2024 12:37 AM PDT Approved by: Jenna Rodney MD, PhD on 05/05/2024 12:37 AM PDT Station ID: [id number]
--- NOTE | 2024-05-05 03:20 | ED Physician Documentation ---
PD HPI CHEST PAIN - Stated complaint Stated Complaint: CP - Chief complaint Chief Complaint: Cardiac - History obtained from History obtained from: Patient, EMS - Additional information Additional information: The patient comes to the emergency department chief complaint of left-sided chest pain. She states that it just came on randomly and felt like her usual angina, so she took a nitroglycerin. The pain resolved but then short while later, she can feel the pain again. The pain resolved after another nitro, but the patient called EMS. EMS states patient has been asymptomatic ever since she has been in their care. No shortness of breath or nausea. The patient is currently without any complaints. She has a history of a CABG in 2014 and she has been doing well ever since. No other complaints at this time. 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 Cardiovascular: CABG HEENT: Tonsil/Adenoidectomy - Present Medications Home Medications: Ambulatory Orders Medication Instructions Recorded Confirmed Aspirin [Adult Aspirin Regimen] 81 mg PO DAILY 05/05/24 05/05/24 Atorvastatin Calcium 40 mg PO DAILY 05/05/24 05/05/24 Clopidogrel [Plavix] 75 mg PO DAILY 05/05/24 05/05/24 Isosorbide Mononitrate [Isosorbide 240 mg PO DAILY 05/05/24 05/05/24 Mononitrate ER] Levothyroxine Sodium 50 mcg PO DAILY 05/05/24 05/05/24 Lisinopril [Zestril] 20 mg PO DAILY 05/05/24 05/05/24 Metoprolol Succinate [Toprol Xl] 50 mg PO DAILY 05/05/24 05/05/24 Torsemide 40 mg PO DAILY 05/05/24 05/05/24 - Allergies Allergies/Adverse Reactions: Allergies Allergy/AdvReac Type Severity Reaction Status Date / Time acarbose Allergy Unknown Verified 05/05/24 00:04 budesonide Allergy Unknown Verified 05/05/24 00:04 fenofibrate Allergy Unknown Verified 05/05/24 00:04 nitrofurantoin Allergy Unknown Verified 05/05/24 00:04 trimethoprim Allergy Unknown Verified 05/05/24 00:04 - Social History Does the pt smoke?: No Smoking Status: Never smoker Does the pt drink ETOH?: No Does the pt have substance abuse?: No - Immunizations Immunizations are current?: Yes - POLST Patient has POLST: No PD ED PE NORMAL - Vitals Vital signs reviewed: Yes - General General: Alert and oriented X 3, No acute distress, Well developed/nourished - HEENT HEENT: Atraumatic, EOMI, Moist mucous membranes - Neck Neck: Supple, no meningeal sign - Cardiac Cardiac: RRR, No murmur - Respiratory Respiratory: No respiratory distress, Clear bilaterally - Abdomen Abdomen: Soft, Non tender, Non distended - Derm Derm: Normal color, Warm and dry, No rash - Extremities Extremities: No deformity, No edema - Neuro Neuro: Other (Alert, appropriate, grossly intact.) - Psych Psych: Normal mood, Normal affect Results - Vitals Vitals: Vital Signs - 24 hr 05/04/24 05/05/24 05/05/24 23:51 01:30 03:00 Temperature 36.7 C Heart Rate 76 74 60 Respiratory 14 21 20 Rate Blood Pressure 151/77 H 142/64 H 144/57 H O2 Saturation 98 98 96 If not protocol 2 : Oxygen Flow, liters/minute Oxygen O2 Source Nasal cannula - EKG (time done) 0001 EKG releavant findings:: EKG personally interpreted by author of this note. Relevant findings are: Rate: Rate (enter#) (73) Rhythm: NSR [place]: Normal Intervals: RBBB QRS: Normal Ischemia: Normal ST segments, Non specific changes Compare to prior EKG: Old EKG unavailable Computer interpretation: Agree with computer - Labs Labs: Laboratory Tests 05/05/24 05/05/24 05/05/24 00:12 00:12 00:12 WBC 6.3 RBC 3.73 L Hgb 10.3 L Hct 32.8 L MCV 87.9 MCH 27.6 MCHC 31.4 L RDW 14.4 Plt Count 192 MPV 10.1 Neut # (Auto) 4.1 Lymph # (Auto) 1.[address] [place] # (Auto) 0.5 Eos # (Auto) 0.5 Baso # (Auto) 0.1 Absolute Nucleated RBC 0.00 Nucleated RBC % 0.0 Sodium 139 Potassium 3.9 Chloride 105 Carbon Dioxide 28 Anion Gap 6.0 BUN 15 Creatinine 1.1 Estimated GFR (MDRD) 47 L Glucose 195 H Calcium 10.0 Total Bilirubin 0.4 AST 16 ALT 10 Alkaline Phosphatase 65 Troponin I High Sens 15.0 H* Total Protein 5.7 L Albumin 3.5 Globulin 2.2 Albumin/Globulin Ratio 1.6 Lipase 22 /06/21 02:15 WBC RBC Hgb Hct MCV MCH MCHC RDW Plt Count MPV Neut # (Auto) Lymph # (Auto) [place] # (Auto) Eos # (Auto) Baso # (Auto) Absolute Nucleated RBC Nucleated RBC % Sodium Potassium Chloride Carbon Dioxide Anion Gap BUN Creatinine Estimated GFR (MDRD) Glucose Calcium Total Bilirubin AST ALT Alkaline Phosphatase Troponin I High Sens 16.6 H* Total Protein Albumin Globulin Albumin/Globulin Ratio Lipase PD Medical Decision Making - ED course Complexity details: reviewed results, re-evaluated patient, considered differential, d/w patient ED course: The patient was worked up with labs including serial troponins, all of which were unremarkable. Her EKG showed some nonspecific findings and ectopy, but otherwise unremarkable for ischemia. The patient was stable for discharge. She had been asymptomatic throughout her stay in the emergency department. We have discussed the need for follow-up and the usual indications for return. Departure - Departure Disposition: 01 Home, Self Care Clinical Impression: Chest pain Qualifiers: Chest pain type: unspecified Qualified Code(s): R07.9 - Chest pain, unspecified Condition: Stable Instructions: ED Chest Pain Atypical Unkn Cause Comments: Your labs including 2 sets of cardiac enzymes look good, as does your EKG. It is not clear what caused your. Your blood probably an episode of your angina. If you have more chest pain, you may take another dose of your nitroglycerin as needed. Please follow-up with your primary doctor if you find you are having more chest pain episodes than usual. Forms: PCP List
[2024-05-05 03:21] VITALS: BP 144/57; O2SAT 96
== END 2024-05-05 05:52 | disposition home or self-care (01) ==
LOC: EDUNIT# → ED 23:53
DX: R07.9 Chest pain, unspecified (principal)
CPT/HCPCS: 36415; 80053; 83690; 84484; 85025; 93005; 99284

== ENCOUNTER 2024-06-29 03:34 | Outpatient (CLI) | payer MEDICARE | END 2024-06-29 22:03 | disposition critical access hospital (66) | LOC: EMS 03:34 | DX: R11.2 Nausea with vomiting, unspecified (principal); R19.7 Diarrhea, unspecified | CPT/HCPCS: A0425; A0427 ==

== ENCOUNTER 2024-06-29 03:57 | Emergency (ER) | payer MEDICARE ==
[2024-06-29 04:13] VITALS: O2SAT 100
[2024-06-29 04:21] LABS: BASOPHILS % (AUTO) 0.3 %; EOSINOPHILS # (AUTO) 0.3 10^3/uL (0.0-0.7); EOSINOPHILS % (AUTO) 2.9 %; HCT - HEMATOCRIT 38.1 % (37.0-47.0); HGB - HEMOGLOBIN 12.3 g/dL (12.0-16.0); LYMPHOCYTES % (AUTO) 8.2 %; MEAN CORPUSCULAR HEMOGLOBIN 27.9 pg (27.0-31.0); MEAN CORPUSCULAR HGB CONC 32.3 g/dL (32.0-36.0); MEAN CORPUSCULAR VOLUME 86.4 fL (81.0-99.0); MEAN PLATELET VOLUME 10.4 fL (7.9-10.8); MONOCYTES # (AUTO) 0.7 10^3/uL (0.0-1.0); MONOCYTES % (AUTO) 5.9 %; NEUTROPHILS # (AUTO) 9.5 10^3/uL (1.5-6.6); NEUTROPHILS % (AUTO) 82.4 %; PLT - PLATELET COUNT 223 10^3/uL (130-450); RED BLOOD COUNT 4.41 10^6/uL (4.20-5.40); RED CELL DISTRIBUTION WIDTH 14.5 % (12.0-15.0); WHITE BLOOD COUNT 11.6 x10^3/uL (4.8-10.8)
--- NOTE | 2024-06-29 04:26 | ED Physician Documentation ---
History of Present Illness - Stated complaint Stated Complaint: N/V/D - Chief complaint Chief Complaint: Abd Pain - History obtained from History obtained from: Patient - Additonal information Additional information: 88yF p/w nbnb n/v X 1 and nonbloody diarrhea tonight with subjective chills. denies abdominal pain, back pain, urinary sx. she states she may have drunk some bad milk. 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 Cardiovascular: CABG HEENT: Tonsil/Adenoidectomy - Present Medications Home Medications: Ambulatory Orders Medication Instructions Recorded Confirmed Aspirin [Adult Aspirin Regimen] 81 mg PO DAILY 05/05/24 05/05/24 Atorvastatin Calcium 40 mg PO DAILY 05/05/24 05/05/24 Clopidogrel [Plavix] 75 mg PO DAILY 05/05/24 05/05/24 Isosorbide Mononitrate [Isosorbide 240 mg PO DAILY 05/05/24 05/05/24 Mononitrate ER] Levothyroxine Sodium 50 mcg PO DAILY 05/05/24 05/05/24 Lisinopril [Zestril] 20 mg PO DAILY 05/05/24 05/05/24 Metoprolol Succinate [Toprol Xl] 50 mg PO DAILY 05/05/24 05/05/24 Torsemide 40 mg PO DAILY 05/05/24 05/05/24 Ondansetron Odt [Zofran Odt] 4 mg TL Q6H PRN #10 tablet 06/29/24 - Allergies Allergies/Adverse Reactions: Allergies Allergy/AdvReac Type Severity Reaction Status Date / Time acarbose Allergy Unknown Verified 06/29/24 04:11 budesonide Allergy Unknown Verified 06/29/24 04:11 fenofibrate Allergy Unknown Verified 06/29/24 04:11 nitrofurantoin Allergy Unknown Verified 06/29/24 04:11 trimethoprim Allergy Unknown Verified 06/29/24 04:11 - Social History Does the pt smoke?: No Smoking Status: Never smoker Does the pt drink ETOH?: No Does the pt have substance abuse?: No - Immunizations Immunizations are current?: Yes - POLST Patient has POLST: No PD ED PE NORMAL - Vitals Vital signs reviewed: Yes - General General: Alert and oriented X 3, No acute distress, Well developed/nourished - HEENT HEENT: Atraumatic, PERRL, EOMI - Neck Neck: Supple, no meningeal sign - Cardiac Cardiac: RRR - Respiratory Respiratory: No respiratory distress, Clear bilaterally - Abdomen Abdomen: Non tender, Non distended - Back Back: No CVA TTP - Derm Derm: Normal color, Warm and dry Results - Vitals Vitals: Vital Signs - 24 hr 06/29/24 06/29/24 04:09 04:12 Temperature 36.7 C Heart Rate 72 70 Respiratory 18 Rate Blood Pressure 149/65 H O2 Saturation 100 If not protocol 2 : Oxygen Flow, liters/minute Oxygen O2 Source Nasal cannula - Labs Labs: Laboratory Tests 06/29/24 04:00 WBC 11.6 H RBC 4.41 Hgb 12.3 Hct 38.1 MCV 86.4 MCH 27.9 MCHC 32.3 RDW 14.5 Plt Count 223 MPV 10.4 Neut # (Auto) 9.5 H Lymph # (Auto) 1.0 L [place] # (Auto) 0.7 Eos # (Auto) 0.3 Baso # (Auto) 0.0 Absolute Nucleated RBC 0.00 Nucleated RBC % 0.0 PD Medical Decision Making - ED course ED course: 88yF p/w n/v/d tonight, now resolved s/p zofran and ivf. likely viral infection vs food poisoning. plan to f/u outpatient with pcp. return precautions given. Departure - Departure Clinical Impression: Vomiting, Diarrhea Condition: Stable Instructions: ED Diarrhea Viral Prescriptions: Ondansetron Odt [Zofran Odt] 4 mg TL Q6H PRN #10 tablet PRN Reason: Nausea / Vomiting Comments: You were seen in the emergency department for vomiting and diarrhea, likely caused by a virus. Antinausea meds were sent to [facility] in [place]. Please follow-up with your primary care provider and return to the emergency department if you have any new or worsening symptoms or other concerns.
[2024-06-29] MEDS: SODIUM CHLORIDE 0.9% 250 ML IV STA (04:31)
[2024-06-29] MEDS: FAMOTIDINE 20 MG/2 ML VIAL IVP STA (04:32)
[2024-06-29] MEDS: ONDANSETRON 4 MG/2 ML VIAL IVP STA (04:32)
[2024-06-29 04:37] LABS: ALBUMIN 4.1 g/dL (3.2-5.5); ALBUMIN/GLOBULIN RATIO 1.5 (1.0-2.2); BILIRUBIN,TOTAL 0.7 mg/dL (0.2-1.0); CALCIUM 10.2 mg/dL (8.5-10.3); CREATININE 1.1 mg/dL (0.6-1.3); POTASSIUM 3.5 mmol/L (3.5-4.5); TOTAL PROTEIN 6.8 g/dL (6.4-8.9)
[2024-06-29 05:26] VITALS: BP 137/81
== END 2024-06-29 05:16 | disposition home or self-care (01) ==
LOC: EDUNIT# → ED 03:57
DX: R11.2 Nausea with vomiting, unspecified (principal); R19.7 Diarrhea, unspecified
CPT/HCPCS: 36415; 80053; 83690; 85025; 96374; 96375; 99283